=== PATIENT | female | born 1960 | race Caucasian/White ===

== ENCOUNTER 2017-06-23 20:42 | Emergency (ER) | payer MEDICARE ==
[~2017-06-23] VITALS: Ht 170.2 cm; Wt 63.5 kg
[~2017-06-23 20:42] MED LIST: ACYC200C PO; CARI250T PO; HYDR-757 PO; HYDR200T PO; LEVO88TA54 PO; PARO-49 PO
--- NOTE | 2017-06-23 21:18 | ED GU-Female ---
General Chief Complaint: Abdominal/GI Problems Stated Complaint: ABD PAIN Nursing Triage Note: PT AMBULATED TO ROOM. PT COMPLAINS OF ABD PAIN SINCE ABOUT 1999 TODAY. PT STATES SHE HAS THIS PROBLEM MANY DIFFERENT TIMES. PT COMPLAINS OF DIFFICULTY PEEING. Nursing Sepsis Screen: No Definite Risk Source: patient, family (daughter) Exam Limitations: no limitations History of Present Illness Time seen by provider: 21:07 Initial Comments Patient presents to ER by private conveyance with her daughter with a chief complaint of low abdominal/pelvis pain. She describes the pain as feeling like she is having muscle spasms in her abdomen working the way up towards her rib cage starting from the pelvis down. She states that she has a history of this pain before because several years ago she has had multiple procedures and surgeries to her bladder and urethra. She had a bladder mesh had to be removed all times. She says all of her surgeries were done at [facility]. She is known to Dr. Branch. She states that 4 days ago she started having some low nagging pain in her pelvis but this afternoon he started getting bad where she couldn't tolerate it. She has a scarred urethra urinary hesitancy and frequency. She is been unable to urinate for several hours but did finally urinate here in the ER. She got a lot of relief after urinating. She has some burning when she urinates. She does not have hematuria. She has no nausea but she has been feeling some chills today. No measured fever. She states in the past she's had to use a straight catheter but she does not like doing this because it is very painful because she has a very scarred down urethra. She recently finished a prednisone course after having a lupus flare that came on just after the of her mother with one month ago. She says she got a bad urinary tract infection the last time she had to have prednisone. She is on Plaquenil for her lupus. Allergies and Home Medications Allergies Coded Allergies: Sulfa (Sulfonamide Antibiotics) (Verified Allergy, Unknown, 09/13/15) Home Medications Acyclovir 200 Mg Capsule, 200 MG PO DAILY, (Reported) Acyclovir 200 Mg Capsule, 200 MG PO DAILY, #6 Prescribed by: DONATO VELOZ on 10/13/16 1750 Carisoprodol 250 Mg Tablet, 250 MG PO TID, #6 Prescribed by: DONATO VELOZ on 10/13/16 1750 Hydrocodone/Acetaminophen 1 Each Tablet, 1 EACH PO Q6H PRN for PAIN, #10 Prescribed by: DONATO VELOZ on 09/13/152142 Hydroxychloroquine Sulfate 200 Mg Tablet, 200 MG PO DAILY, (Reported) Levothyroxine Sodium 88 Mcg Tablet, 88 MCG PO DAILY, (Reported) Paroxetine HCl 20 Mg Tablet, 20 MG PO DAILY, (Reported) Constitutional: chills, diaphoresis, No fever, malaise Respiratory: No cough, No short of breath Cardiovascular: No chest pain, No palpitations Gastrointestinal: No abdominal pain (bbilateral lower quadrants), No constipation, No diarrhea, No nausea, No vomiting Genitourinary: see HPI, burning, denies discharge, dysuria, frequency : No Musculoskeletal: No back pain, No joint pain Skin: No pruritus, No rash Psychiatric/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: Denies Headache, Denies Numbness, Denies Paresthesia Past Nqrafun-Andcnj-Ickusr Hx Patient Social History Alcohol Use: Denies Use Recreational Drug Use: No Smoking Status: Current Everyday Smoker Type Used: Cigarettes 2nd Hand Smoke Exposure: No Recent Foreign Travel: No Contact w/Someone Who Travel: No Recent Infectious Disease Expo: No Recent Hopitalizations: No Physical Abuse: No Sexual Abuse: No Respiratory Respiratory Disorders: COPD 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 Disorders: Multiple Sclerosis Endocrine Endocrine Disorders: Lupus Psychosocial Suicide Risk Score: 0 Physical Exam Vital Signs Vital Sign - Last 12Hours 06/23/17 20:47 Temp 95.7 Pulse 79 Resp 20 B/P (MAP) 120/64 Pulse Ox 97 O2 Delivery Room Air Capillary Refill : Less Than 3 Seconds General Appearance: WD/WN, mild distress HEENT: PERRL/EOMI, pharynx normal Neck: non-tender, full range of motion Cardiovascular: normal peripheral pulses, regular rate, rhythm Respiratory: chest non-tender, lungs clear, normal breath sounds Gastrointestinal: normal bowel sounds, soft, no organomegaly, No distended, tenderness (bilateral lower quadrants and suprapubic region especially), No hernia Back: normal inspection, no CVA tenderness, no vertebral tenderness Extremities: normal inspection, no pedal edema, normal capillary refill Neurologic/Psychiatric: alert, oriented x 3 Skin: normal color, warm/dry Progress/Results/Core Measures Results/Orders Lab Results Laboratory Tests Test 06/23/17 20:51 06/23/17 20:56 Range/Units Urine Color YELLOW Urine Clarity CLEAR Urine pH 5 5-9 Urine Specific [place] 1.015 L 1.016-1.022 Urine Protein NEGATIVE NEGATIVE Urine Glucose (UA) NEGATIVE NEGATIVE Urine Ketones NEGATIVE NEGATIVE Urine Nitrite NEGATIVE NEGATIVE Urine Bilirubin NEGATIVE NEGATIVE Urine Urobilinogen NORMAL NORMAL MG/DL Urine Leukocyte Esterase NEGATIVE NEGATIVE Urine RBC (Auto) NEGATIVE NEGATIVE Urine RBC NONE /HPF Urine WBC NONE /HPF Urine Squamous Epithelial Cells RARE /HPF Urine Crystals NONE /LPF Urine Bacteria NONE /HPF Urine Casts NONE /LPF Urine Mucus NEGATIVE /LPF Urine Culture Indicated NO White Blood Count 10.5 4.3-11.0 10^3/uL Red Blood Count 4.55 4.35-5.85 10^6/uL Hemoglobin 15.3 11.5-16.0 G/DL Hematocrit 45 35-52 % Mean Corpuscular Volume 100 H 80-99 FL Mean Corpuscular Hemoglobin 34 25-34 PG Mean Corpuscular Hemoglobin Concent 34 32-36 G/DL Red Cell Distribution Width 12.3 10.0-14.5 % Platelet Count 286 130-400 10^3/uL Mean Platelet Volume 9.6 7.4-10.4 FL Neutrophils (%) (Auto) 52 42-75 % Lymphocytes (%) (Auto) 39 12-44 % Monocytes (%) (Auto) 6 0-12 % Eosinophils (%) (Auto) 2 0-10 % Basophils (%) (Auto) 1 0-10 % Neutrophils # (Auto) 5.4 1.8-7.8 X 10^3 Lymphocytes # (Auto) 4.1 H 1.0-4.0 X 10^3 Monocytes # (Auto) 0.7 0.0-1.0 X 10^3 Eosinophils # (Auto) 0.2 0.0-0.3 10^3/uL Basophils # (Auto) 0.1 0.0-0.1 10^3/uL Sodium Level 142 135-145 MMOL/L Potassium Level 3.7 3.6-5.0 MMOL/L Chloride Level 106 98-107 MMOL/L Carbon Dioxide Level 23 21-32 MMOL/L Anion Gap 13 5-14 MMOL/L Blood Urea Nitrogen 5 L 7-18 MG/DL Creatinine 0.81 0.60-1.30 MG/DL Estimat Glomerular Filtration Rate > 60 BUN/Creatinine Ratio 6 Glucose Level 92 70-105 MG/DL Calcium Level 9.8 8.5-10.1 MG/DL Total Bilirubin 0.2 0.1-1.0 MG/DL Aspartate Amino Transf (AST/SGOT) 18 5-34 U/L Alanine Aminotransferase (ALT/SGPT) 14 0-55 U/L Alkaline Phosphatase 48 40-136 U/L Total Protein 6.9 6.4-8.2 GM/DL Albumin 3.9 3.2-4.5 GM/DL My Orders Orders - IRINA MOLINA Cbc With Automated Diff (06/23/17 21:13) Comprehensive Metabolic Panel (06/23/17 21:13) Ua Culture If Indicated (06/23/17 21:13) Lorazepam Tablet (Ativan Tablet) (06/23/17 21:30) Hydrocodone/Apap 5/325 Tablet (Lortab 5 (06/23/17 21:30) Lorazepam Injection (Ativan Injection) (06/23/17 21:30) Medications Given in ED Current Medications Medications Dose Ordered Sig/Jens Route Start Time Stop Time Status Last Admin Dose Admin Acetaminophen/ Hydrocodone Bitart 1 tab ONCE ONCE PO 06/23/17 21:30 06/23/17 21:31 DC 06/23/17 21:26 1 TAB Lorazepam 1 mg ONCE ONCE IVP 06/23/17 21:30 06/23/17 21:31 DC 06/23/17 21:28 1 MG Vital Signs/I&O Vital Sign - Last 12Hours 06/23/17 20:47 Temp 95.7 Pulse 79 Resp 20 B/P (MAP) 120/64 Pulse Ox 97 O2 Delivery Room Air Blood Pressure Mean: 82 Progress Note #1: Time: 21:21 Progress Note Would be concerned about urinary retention with a history of scarring urethra and multiple procedures to her bladder in urethra. We'll get a postvoid residual using bladder scan her. She did just micturate prior to my interview. We'll also get a UA and do a basic panel of labs to make sure kidneys are okay and she is not got large white count. She is on plaque on own recently prednisone so white count may be elevated mildly just because of the prednisone. We'll be very cautious the treatment for any signs of a UTI with antibiotics both other anti-inflammatory properties as well as for her higher risk being on Plaquenil of infection. Progress Note #2: Time: 21:40 Progress Note Postvoid residual bladder scan showed 60 mL. Her urinalysis does not show urinary tract infection. Review of the [facility] prescription management software indicates the patient does routinely receive 150 doses of hydrocodone 10 every month from her PCP. Opiates can also contribute to urinary hesitancy as well as constipation however the patient states she's been having loose stools. May be reasonable to ask her to reduce her opiate use for a few days and maybe give her some anti-spasm muscle relaxers for her abdominal muscle wall pain. Departure Impression Impression: Primary Impression: Abdominal wall pain Additional Impression: Urinary hesitancy Disposition: 01 HOME, SELF-CARE Condition: Stable Departure-Patient Inst. Decision time for Depature: 22:49 Referrals: ANAIS SETH DO (PCP) Primary Care Physician Patient Instructions: Acute Abdomen (Belly Pain), Adult (DC) Add. Discharge Instructions: Drink plenty of fluids and you may take one tablet of cyclobenzaprine every 8 hours as needed for muscle spasms. Follow-up with the PCP in the next 1-2 weeks. All discharge instructions reviewed with patient and/or family. Voiced understanding. Scripts Cyclobenzaprine HCl (Cyclobenzaprine HCl) 10 Mg Tablet 10 MG PO Q8H Y for SPASMS, #15 TAB 0 Refills Prov: IRINA MOLINA 06/23/17 Copy Copies To 1: ANAIS SETH TITUS J Jun 23, 2017 21:18
[2017-06-23 21:27] LABS: BASOPHILS # (AUTO) 0.1 10^3/uL (0.0-0.1); BASOPHILS % (AUTO) 1 % (0-10); EOSINOPHILS # (AUTO) 0.2 10^3/uL (0.0-0.3); EOSINOPHILS % (AUTO) 2 % (0-10); LYMPHOCYTES # (AUTO) 4.1 X 10^3 (1.0-4.0); LYMPHOCYTES % (AUTO) 39 % (12-44); MEAN CORPUSCULAR HEMOGLOBIN 34 PG (25-34); MEAN CORPUSCULAR HGB CONC 34 G/DL (32-36); MEAN CORPUSCULAR VOLUME 100 FL (80-99); MEAN PLATELET VOLUME 9.6 FL (7.4-10.4); MONOCYTES # (AUTO) 0.7 X 10^3 (0.0-1.0); MONOCYTES % (AUTO) 6 % (0-12); NEUTROPHILS # (AUTO) 5.4 X 10^3 (1.8-7.8); NEUTROPHILS % (AUTO) 52 % (42-75); PLATELET COUNT 286 10^3/uL (130-400); RED BLOOD COUNT 4.55 10^6/uL (4.35-5.85); RED CELL DISTRIBUTION WIDTH 12.3 % (10.0-14.5); WHITE BLOOD COUNT 10.5 10^3/uL (4.3-11.0)
[2017-06-23 21:28] LABS: BILIRUBIN,URINE NEGATIVE (NEGATIVE); KETONES,URINE NEGATIVE (NEGATIVE); LEUKOCYTE ESTERASE ,URINE NEGATIVE (NEGATIVE); NITRITE,URINE NEGATIVE (NEGATIVE); PH,URINE 5 (5-9); PROTEIN,URINE NEGATIVE (NEGATIVE); UROBILINOGEN,URINE NORMAL (NORMAL)
[2017-06-23] MEDS ORDERED: HYDROcodone/APAP 5 MG/325 MG (LORTAB) TAB PO ONE (21:30)
[2017-06-23] MEDS ORDERED: LORazepam 1 MG (ATIVAN) TAB PO ONE (21:30)
[2017-06-23] MEDS ORDERED: LORazepam INJ 2 MG/ML (ATIVAN) VIAL IVP ONE (21:30)
[2017-06-23 21:35] LABS: SQUAMOUS EPITHELIAL CELL,UR RARE /HPF
[2017-06-23 21:45] LABS: ALANINE AMINOTRANSFERASE 14 U/L (0-55); ALBUMIN 3.9 GM/DL (3.2-4.5); ANION GAP 13 MMOL/L (5-14); ASPARTATE AMINO TRANSFERASE 18 U/L (5-34); BILIRUBIN,TOTAL 0.2 MG/DL (0.1-1.0); BLOOD UREA NITROGEN 5 MG/DL (7-18); BUN/CREATININE RATIO 6; CALCIUM 9.8 MG/DL (8.5-10.1); CARBON DIOXIDE 23 MMOL/L (21-32); CHLORIDE 106 MMOL/L (98-107); CREATININE SERUM 0.81 MG/DL (0.60-1.30); GFR ESTIMATED > 60; GLUCOSE 92 MG/DL (70-105); POTASSIUM 3.7 MMOL/L (3.6-5.0); SODIUM 142 MMOL/L (135-145); TOTAL PROTEIN 6.9 GM/DL (6.4-8.2)
[2017-06-23] MEDS ORDERED: CYCL10TA9 PO (22:50)
[2017-06-23 23:00] VITALS: BP 120/64
== END 2017-06-23 23:00 | disposition home or self-care (01) ==
LOC: EDUNIT# 20:42 → ER 20:43
DX: R10.30 Lower abdominal pain, unspecified (principal); R39.11 Hesitancy of micturition; L93.0 Discoid lupus erythematosus; G35 Multiple sclerosis; F17.210 Nicotine dependence, cigarettes, uncomplicated; Z79.899 Other long term (current) drug therapy
CPT/HCPCS: 36415; 80053; 81000; 85025; 96374

== ENCOUNTER → 2017-09-01 | Outpatient (CLI) | payer MEDICARE ==
[~2017-09-01] MED LIST changes: +CYCL10TA9 PO
--- NOTE | 2017-09-01 19:44 | Diagnostic Imaging Report ---
EXAMINATION: Three views of the left ankle. INDICATION: Pain. FINDINGS: No fracture, dislocation or radiopaque foreign body. Ankle mortise is normal in configuration. IMPRESSION: Unremarkable exam. Dictated by: Dictated on workstation # [id number]
== END ==
LOC: RAD 15:39
PROVIDERS: ATTEND Nurse Practitioner Family
DX: M25.572 Pain in left ankle and joints of left foot (principal)
CPT/HCPCS: 73610

== ENCOUNTER 2018-07-19 19:02 | Emergency (ER) | payer MEDICARE ==
[~2018-07-19] VITALS: Ht 175.3 cm; Wt 49.4 kg
[~2018-07-19 19:02] MED LIST changes: +HYDR-4226 PO; -HYDR-757 PO; -HYDR200T PO; +HYDR200T78 PO
[2018-07-19 19:05] VITALS: BP 114/62
--- OUTSIDE RECORDS SUMMARY | 2018-07-19 19:07 | XMS REPORT | Continuity of Care Document ---
Author Author [facility] Organization [facility] Address Unknown Phone Unavailable Allergies Active Description Code Type Severity Reaction Onset Reported/Identified Relationship to Patient Clinical Status Yes Sulfa (Sulfonamide Antibiotics) [id number] Drug Allergy Unknown N/A 2014 Medications There is no data. Problems Date Dx Coded Attending Type Code Diagnosis Diagnosed By 09/13/2015 DONATO VELOZ APRN Ot N20.9 URINARY CALCULUS, UNSPECIFIED 09/13/2015 DONATO VELOZ APRN Ot N28.9 DISORDER OF KIDNEY AND URETER, UNSPECIFI 09/13/2015 DONATO VELOZ APRN Ot N39.490 OVERFLOW INCONTINENCE 09/13/2015 DONATO VELOZ APRN Ot R33.9 RETENTION OF URINE, UNSPECIFIED 10/13/2016 DONATO VELOZ APRN Ot F17.210 NICOTINE DEPENDENCE, CIGARETTES, UNCOMPL 10/13/2016 DONATO VELOZ APRN Ot G35 MULTIPLE SCLEROSIS 10/13/2016 DONATO VELOZ APRN Ot J44.9 CHRONIC OBSTRUCTIVE PULMONARY DISEASE, U 10/13/2016 DONATO VELOZ APRN Ot R51 HEADACHE 10/13/2016 DONATO VELOZ APRN Ot Z79.899 OTHER USP (CURRENT) DRUG THERAPY 10/14/2016 DONATO VELOZ APRN Ot F17.210 NICOTINE DEPENDENCE, CIGARETTES, UNCOMPL 10/14/2016 DONATO VELOZ APRN Ot G35 MULTIPLE SCLEROSIS 10/14/2016 DONATO VELOZ APRN Ot J44.9 CHRONIC OBSTRUCTIVE PULMONARY DISEASE, U 10/14/2016 DONATO VELOZ APRN Ot R51 HEADACHE 10/14/2016 DONAOT VELOZ APRN Ot Z79.899 OTHER USP (CURRENT) DRUG THERAPY 10/18/2016 ROBERT CASAREZ APRN Ot M48.02 SPINAL STENOSIS, CERVICAL REGION 10/18/2016 ROBERT CASAREZ APRN Ot R41.82 ALTERED MENTAL STATUS, UNSPECIFIED 11/17/2016 ROBERT CASAREZ 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 REPAIRER Ot M48.02 SPINAL STENOSIS, CERVICAL REGION 11/17/2016 ROBERT CASAREZ AUTO BODY REPAIRER Ot R41.82 ALTERED MENTAL STATUS, UNSPECIFIED 12/14/2016 ROBERT CASAREZ AUTO BODY REPAIRER Ot M48.02 SPINAL STENOSIS, CERVICAL REGION 12/14/2016 ROBERT CASAREZ AUTO BODY REPAIRER Ot R41.82 ALTERED MENTAL STATUS, UNSPECIFIED 06/23/2017 TRACY TOVAR IRINA J Ot F17.210 NICOTINE DEPENDENCE, CIGARETTES, UNCOMPL 06/23/2017 FIDELINA MOLINA MDUS J Ot G35 MULTIPLE SCLEROSIS 06/23/2017 TRACY TOVAR, IRINA J Ot L93.0 DISCOID LUPUS ERYTHEMATOSUS 06/23/2017 FIDELINA MOLINA MDUS J Ot R10.30 LOWER ABDOMINAL PAIN, UNSPECIFIED 06/23/2017 FIDELINA MOLINA MDUS J Ot R10.9 UNSPECIFIED ABDOMINAL PAIN 06/23/2017 FIDELINA MOLINA MDUS J Ot R39.11 HESITANCY OF MICTURITION 06/23/2017 FIDELINA MOLINA MDUS J Ot Z79.899 OTHER USP (CURRENT) DRUG THERAPY 06/25/2017 TRACY TOVAR IRINA J Ot F17.210 NICOTINE DEPENDENCE, CIGARETTES, UNCOMPL 06/25/2017 TRACY TOVAR IRINA J Ot G35 MULTIPLE SCLEROSIS 06/25/2017 TRACY TOVAR IRINA J Ot L93.0 DISCOID LUPUS ERYTHEMATOSUS 06/25/2017 TRACY TOVAR IRINA J Ot R10.30 LOWER ABDOMINAL PAIN, UNSPECIFIED 06/25/2017 TRACY TOVAR IRINA J Ot R10.9 UNSPECIFIED ABDOMINAL PAIN 06/25/2017 TRACY TOVAR IRINA J Ot R39.11 HESITANCY OF MICTURITION 06/25/2017 TRACY TOVAR IRINA J Ot Z79.899 OTHER USP (CURRENT) DRUG THERAPY 08/08/2017 MADIE SHELL MD T Ot E03.9 HYPOTHYROIDISM, UNSPECIFIED 08/08/2017 MADIE SHELL MD T Ot F17.210 NICOTINE DEPENDENCE, CIGARETTES, UNCOMPL 08/08/2017 MADIE SHELL MD T Ot G89.29 OTHER CHRONIC PAIN 08/08/2017 MADIE SHELL MD T Ot J44.9 CHRONIC OBSTRUCTIVE PULMONARY DISEASE, U 08/08/2017 MADIE SHELL MD Ot M32.9 SYSTEMIC LUPUS ERYTHEMATOSUS, UNSPECIFIE 08/08/2017 MADIE SHELL MD Ot R10.9 UNSPECIFIED ABDOMINAL PAIN 08/08/2017 MADIE SHELL MD Ot Z90.710 ACQUIRED ABSENCE OF BOTH CERVIX AND UTER 08/08/2017 MADIE SHELL MD, Ot Z91.14 PATIENT'S OTHER NONCOMPLIANCE WITH MEDIC 08/09/2017 MADIE SHELL MD Ot E03.9 HYPOTHYROIDISM, UNSPECIFIED 08/09/2017 MADIE SHELL MD Ot F17.210 NICOTINE DEPENDENCE, CIGARETTES, UNCOMPL 08/09/2017 MADIE SHELL MD Ot G89.29 OTHER CHRONIC PAIN 08/09/2017 MADIE SHELL MD, Ot J44.9 CHRONIC OBSTRUCTIVE PULMONARY DISEASE, U 08/09/2017 MADIE SHELL MD, Ot M32.9 SYSTEMIC LUPUS ERYTHEMATOSUS, UNSPECIFIE 08/09/2017 MADIE SHELL MD Ot R10.9 UNSPECIFIED ABDOMINAL PAIN 08/09/2017 MADIE SHELL MD, Ot Z90.710 ACQUIRED ABSENCE OF BOTH CERVIX AND UTER 08/09/2017 MADIE SHELL MD, Ot Z91.14 PATIENT'S OTHER NONCOMPLIANCE WITH MEDIC 09/26/2017 RANDA MORAN APRN Ot M25.572 PAIN IN LEFT ANKLE AND JOINTS OF LEFT FO 05/18/2018 RANDA MORAN APRN Ot M25.572 PAIN IN LEFT ANKLE AND JOINTS OF LEFT FO Procedures There is no data. Results Test Result Range Complete blood count (CBC) with automated white blood cell (WBC) differential - 10/13/16 16:30 Blood leukocytes automated count (number/volume) 10.5 10*3/uL 4.3-11.0 Blood erythrocytes automated count (number/volume) 4.50 10*6/uL 4.35-5.85 Venous blood hemoglobin measurement (mass/volume) 15.5 g/dL 11.5-16.0 Blood hematocrit (volume fraction) 46 % 35-52 Automated erythrocyte mean corpuscular volume 101 [foz_us] 80-99 Automated erythrocyte mean corpuscular hemoglobin (mass per erythrocyte) 34 pg 25-34 Automated erythrocyte mean corpuscular hemoglobin concentration measurement ( mass/volume) 34 g/dL 32-36 Automated erythrocyte distribution width ratio 12.4 % 10.0-14.5 Automated blood platelet count (count/volume) 293 10*3/uL 130-400 Automated blood platelet mean volume measurement 9.4 [foz_us] 7.4-10.4 Automated blood neutrophils/100 leukocytes 53 % 42-75 Automated blood lymphocytes/100 leukocytes 38 % 12-44 Blood monocytes/100 leukocytes 7 % 0-12 Automated blood eosinophils/100 leukocytes 2 % 0-10 Automated blood basophils/100 leukocytes 1 % 0-10 Blood neutrophils automated count (number/volume) 5.6 10*3 1.8-7.8 Blood lymphocytes automated count (number/volume) 3.9 10*3 1.0-4.0 Blood monocytes automated count (number/volume) 0.7 10*3 0.0-1.0 Automated eosinophil count 0.2 10*3/uL 0.0-0.3 Automated blood basophil count (count/volume) 0.1 10*3/uL 0.0-0.1 Comprehensive metabolic panel - 10/13/16 16:30 Serum or plasma sodium measurement (moles/volume) 139 mmol/L 135-145 Serum or plasma potassium measurement (moles/volume) 4.0 mmol/L 3.6-5.0 Serum or plasma chloride measurement (moles/volume) 108 mmol/L 98-107 Carbon dioxide 20 mmol/L 21-32 Serum or plasma anion gap determination (moles/volume) 11 mmol/L 5-14 Serum or plasma urea nitrogen measurement (mass/volume) 6 mg/dL 7-18 Serum or plasma creatinine measurement (mass/volume) 0.78 mg/dL 0.60-1.30 Serum or plasma urea nitrogen/creatinine mass ratio 8 NRG Serum or plasma creatinine measurement with calculation of estimated glomerular filtration rate > NRG Serum or plasma glucose measurement (mass/volume) 104 mg/dL 70-105 Serum or plasma calcium measurement (mass/volume) 9.1 mg/dL 8.5-10.1 Serum or plasma total bilirubin measurement (mass/volume) 0.3 mg/dL 0.1-1.0 Serum or plasma alkaline phosphatase measurement (enzymatic activity/volume) 39 U/L 40-136 Serum or plasma aspartate aminotransferase measurement (enzymatic activity/ volume) 24 U/L 5-34 Serum or plasma alanine aminotransferase measurement (enzymatic activity/volume ) 17 U/L 0-55 Serum or plasma protein measurement (mass/volume) 7.0 g/dL 6.4-8.2 Serum or plasma albumin measurement (mass/volume) 4.0 g/dL 3.2-4.5 THYROID STIMULATING HORMONE - 10/13/16 16:30 THYROID STIMULATING HORMONE 14.16 u[iU]/mL 0.35-4.94 Serum or plasma thyroxine (T4) free measurement (mass/volume) - 10/13/16 16:30 Serum or plasma thyroxine (T4) free measurement (mass/volume) 1.07 ng/dL 0.70-1.48 Serum or plasma C reactive protein measurement (mass/volume) - 10/13/16 16:30 Serum or plasma C reactive protein measurement (mass/volume) 0.34 mg /dL 0.00-0.50 Erythrocyte sedimentation rate by westergren method - 10/13/16 16:30 Erythrocyte sedimentation rate by westergren method 7 mm 0-30 Complete urinalysis with reflex to culture - 10/13/16 17:03 Urine color determination YELLOW NRG Urine clarity determination CLEAR NRG Urine pH measurement by test strip 6 5-9 Specific gravity of urine by test strip 1.015 1.016- 1.022 Urine protein assay by test strip, semi-quantitative NEGATIVE NEGATIVE Urine glucose detection by automated test strip NEGATIVE NEGATIVE Erythrocytes detection in urine sediment by light microscopy NEGATIVE NEGATIVE Urine ketones detection by automated test strip NEGATIVE NEGATIVE Urine nitrite detection by test strip NEGATIVE NEGATIVE Urine total bilirubin detection by test strip NEGATIVE NEGATIVE Urine urobilinogen measurement by automated test strip (mass/volume) NORMAL NORMAL Urine leukocyte esterase detection by dipstick NEGATIVE NEGATIVE Automated urine sediment erythrocyte count by microscopy (number/high power field) [HPF] NRG Automated urine sediment leukocyte count by microscopy (number/high power field ) [HPF] NRG Bacteria detection in urine sediment by light microscopy NEGATIVE NRG Crystals detection in urine sediment by light microscopy NONE NRG Casts detection in urine sediment by light microscopy NONE NRG Mucus detection in urine sediment by light microscopy NEGATIVE NRG Complete urinalysis with reflex to culture NO NRG Urine drug screening test - 10/13/16 17:03 Urine phencyclidine detection by screening method NEGATIVE NEGATIVE Urine benzodiazepines detection by screening method NEGATIVE NEGATIVE Urine cocaine detection NEGATIVE NEGATIVE Urine amphetamines detection by screening method NEGATIVE NEGATIVE Urine methamphetamine detection by screening method NEGATIVE NEGATIVE Urine cannabinoids detection by screening method NEGATIVE NEGATIVE Urine opiates detection by screening method POSITIVE NEGATIVE Urine barbiturates detection NEGATIVE NEGATIVE Screening urine tricyclic antidepressants detection NEGATIVE NEGATIVE Urine methadone detection by screening method NEGATIVE NEGATIVE Urine oxycodone detection NEGATIVE NEGATIVE Urine propoxyphene detection NEGATIVE NEGATIVE Complete urinalysis with reflex to culture - 06/23/17 20:51 Urine color determination YELLOW NRG Urine clarity determination CLEAR NRG Urine pH measurement by test strip 5 5-9 Specific gravity of urine by test strip 1.015 1.016- 1.022 Urine protein assay by test strip, semi-quantitative NEGATIVE NEGATIVE Urine glucose detection by automated test strip NEGATIVE NEGATIVE Erythrocytes detection in urine sediment by light microscopy NEGATIVE NEGATIVE Urine ketones detection by automated test strip NEGATIVE NEGATIVE Urine nitrite detection by test strip NEGATIVE NEGATIVE Urine total bilirubin detection by test strip NEGATIVE NEGATIVE Urine urobilinogen measurement by automated test strip (mass/volume) NORMAL NORMAL Urine leukocyte esterase detection by dipstick NEGATIVE NEGATIVE Automated urine sediment erythrocyte count by microscopy (number/high power field) NONE NRG Automated urine sediment leukocyte count by microscopy (number/high power field ) NONE NRG Bacteria detection in urine sediment by light microscopy NONE NRG Squamous epithelial cells detection in urine sediment by light microscopy RARE NRG Crystals detection in urine sediment by light microscopy NONE NRG Casts detection in urine sediment by light microscopy NONE NRG Mucus detection in urine sediment by light microscopy NEGATIVE NRG Complete urinalysis with reflex to culture NO NRG Complete blood count (CBC) with automated white blood cell (WBC) differential - 06/23/17 20:56 Blood leukocytes automated count (number/volume) 10.5 10*3/uL 4.3-11.0 Blood erythrocytes automated count (number/volume) 4.55 10*6/uL 4.35-5.85 Venous blood hemoglobin measurement (mass/volume) 15.3 g/dL 11.5-16.0 Blood hematocrit (volume fraction) 45 % 35-52 Automated erythrocyte mean corpuscular volume 100 [foz_us] 80-99 Automated erythrocyte mean corpuscular hemoglobin (mass per erythrocyte) 34 pg 25-34 Automated erythrocyte mean corpuscular hemoglobin concentration measurement ( mass/volume) 34 g/dL 32-36 Automated erythrocyte distribution width ratio 12.3 % 10.0-14.5 Automated blood platelet count (count/volume) 286 10*3/uL 130-400 Automated blood platelet mean volume measurement 9.6 [foz_us] 7.4-10.4 Automated blood neutrophils/100 leukocytes 52 % 42-75 Automated blood lymphocytes/100 leukocytes 39 % 12-44 Blood monocytes/100 leukocytes 6 % 0-12 Automated blood eosinophils/100 leukocytes 2 % 0-10 Automated blood basophils/100 leukocytes 1 % 0-10 Blood neutrophils automated count (number/volume) 5.4 10*3 1.8-7.8 Blood lymphocytes automated count (number/volume) 4.1 10*3 1.0-4.0 Blood monocytes automated count (number/volume) 0.7 10*3 0.0-1.0 Automated eosinophil count 0.2 10*3/uL 0.0-0.3 Automated blood basophil count (count/volume) 0.1 10*3/uL 0.0-0.1 Comprehensive metabolic panel - 06/23/17 20:56 Serum or plasma sodium measurement (moles/volume) 142 mmol/L 135-145 Serum or plasma potassium measurement (moles/volume) 3.7 mmol/L 3.6-5.0 Serum or plasma chloride measurement (moles/volume) 106 mmol/L 98-107 Carbon dioxide 23 mmol/L 21-32 Serum or plasma anion gap determination (moles/volume) 13 mmol/L 5-14 Serum or plasma urea nitrogen measurement (mass/volume) 5 mg/dL 7-18 Serum or plasma creatinine measurement (mass/volume) 0.81 mg/dL 0.60-1.30 Serum or plasma urea nitrogen/creatinine mass ratio 6 NRG Serum or plasma creatinine measurement with calculation of estimated glomerular filtration rate > NRG Serum or plasma glucose measurement (mass/volume) 92 mg/dL 70-105 Serum or plasma calcium measurement (mass/volume) 9.8 mg/dL 8.5-10.1 Serum or plasma total bilirubin measurement (mass/volume) 0.2 mg/dL 0.1-1.0 Serum or plasma alkaline phosphatase measurement (enzymatic activity/volume) 48 U/L 40-136 Serum or plasma aspartate aminotransferase measurement (enzymatic activity/ volume) 18 U/L 5-34 Serum or plasma alanine aminotransferase measurement (enzymatic activity/volume ) 14 U/L 0-55 Serum or plasma protein measurement (mass/volume) 6.9 g/dL 6.4-8.2 Serum or plasma albumin measurement (mass/volume) 3.9 g/dL 3.2-4.5 Encounters ACCT No. Visit Date/Time Discharge Status Pt. Type Provider Facility Loc./Unit Complaint [id number] 09/01/2017 15:39:00 09/01/2017 23:59:59 CLS Outpatient RANDA MORAN [employer] REPAIRER [facility] RAD PAIN LATERAL EDGE OF LEFT ANKLE [id number] 08/08/2017 13:35:00 08/08/2017 14:30:00 DIS Emergency SUMAYA TOVAR, MADIE Costa [facility] ER NO MEDS FOR 1 MO/ LUPUS [id number] 06/23/2017 20:43:00 06/23/2017 23:00:00 DIS Emergency IRINA MOLINA MD [facility] ER ABD PAIN [id number] 01/27/2017 14:03:00 01/27/2017 23:59:59 CLS Preadmit ANAIS SETH DO [facility] REHAB CERVICAL DDD AND B ARM NUMBNESS [id number] 10/16/2016 13:07:00 10/16/2016 23:59:59 CLS Outpatient HERMELINDO ROBERT N [employer] REPAIRER [facility] RAD RU1.82 [id number] 10/13/2016 16:22:00 10/13/2016 18:00:00 DIS Emergency DONATO VELOZ [employer] REPAIRER [facility] ER HEAD PAIN [id number] 09/13/2015 19:33:00 09/13/2015 22:16:00 DIS Emergency DONATO VELOZ [employer] REPAIRER [facility] ER UNABLE TO URINATE
[2018-07-19] MEDS ORDERED: ASPIRIN 81 MG CHEW (CHILDREN'S ASA) PO ONE (19:15)
[2018-07-19] MEDS ORDERED: NS IV 1000 ML 1,000 ML IV ONE (19:15)
[2018-07-19 19:34] LABS: BASOPHILS % (AUTO) 1 % (0-10); EOSINOPHILS % (AUTO) 1 % (0-10); HEMATOCRIT 41 % (35-52); HEMOGLOBIN 14.1 G/DL (11.5-16.0); LYMPHOCYTES # (AUTO) 1.2 X 10^3 (1.0-4.0); LYMPHOCYTES % (AUTO) 19 % (12-44); MEAN CORPUSCULAR HEMOGLOBIN 34 PG (25-34); MEAN CORPUSCULAR HGB CONC 34 G/DL (32-36); MEAN CORPUSCULAR VOLUME 100 FL (80-99); MEAN PLATELET VOLUME 9.6 FL (7.4-10.4); MONOCYTES # (AUTO) 0.4 X 10^3 (0.0-1.0); MONOCYTES % (AUTO) 6 % (0-12); NEUTROPHILS # (AUTO) 4.7 X 10^3 (1.8-7.8); NEUTROPHILS % (AUTO) 75 % (42-75); PLATELET COUNT 260 10^3/uL (130-400); RED BLOOD COUNT 4.14 10^6/uL (4.35-5.85); RED CELL DISTRIBUTION WIDTH 12.6 % (10.0-14.5); WHITE BLOOD COUNT 6.3 10^3/uL (4.3-11.0)
[2018-07-19 19:47] LABS: PROTHROMBIN TIME PATIENT 12.8 SEC (12.2-14.7)
[2018-07-19 19:51] LABS: ALANINE AMINOTRANSFERASE 17 U/L (0-55); ALBUMIN 4.1 GM/DL (3.2-4.5); ALKALINE PHOSPHATASE 36 U/L (40-136); BILIRUBIN,TOTAL 0.2 MG/DL (0.1-1.0); BUN/CREATININE RATIO 7; CALCIUM 9.6 MG/DL (8.5-10.1); CARBON DIOXIDE 24 MMOL/L (21-32); CHLORIDE 108 MMOL/L (98-107); CREATININE SERUM 0.75 MG/DL (0.60-1.30); GFR ESTIMATED > 60; GLUCOSE 106 MG/DL (70-105); LIPASE 37 U/L (8-78); MAGNESIUM 2.3 MG/DL (1.8-2.4); POTASSIUM 3.9 MMOL/L (3.6-5.0); SODIUM 141 MMOL/L (135-145); TOTAL PROTEIN 6.9 GM/DL (6.4-8.2)
[2018-07-19 19:58] LABS: MYOGLOBIN SERUM 37.4 NG/ML (10.0-92.0)
[2018-07-19] MEDS ORDERED: ANTACID SUSP 30 ML UDC (MYLANTA) PO ONE (20:00)
[2018-07-19] MEDS ORDERED: LIDOCAINE 2% VISCOUS 15 ML UDC PO ONE (20:00)
--- NOTE | 2018-07-19 20:10 | ED Chest Pain ---
General Chief Complaint: Chest Pain Stated Complaint: CHEST PAIN/SHAKY/WEAKNESS/COUGH Nursing Triage Note: PT TO ROOM #10 VIA ED WC BY ED STAFF FROM [facility]. PT NOTED TO BE PALE AND GRAPPING CHEST. A&OX4. CO CHEST PAIN THAT BEGAN 1HR PRIOR. PT REPORTS PAIN "CRUSHING" THAT RADIATES TO HER LT ARM. PT REPORTS NAUSEA AND DIAPHORESIS. PT REPORTS HER SISTER IN CAR WRECK TWO WEEKS PRIOR AND HAS BEEN STUGGLING WITH ANXIETY SINCE. Nursing Sepsis Screen: No Definite Risk Source: patient Exam Limitations: no limitations History of Present Illness Date Seen by Provider: Jul 19, 2018 Time Seen by Provider: 19:10 Initial Comments Here with report of central chest pain that began approximately one hour prior to arrival. States that it is pressure and crushing and radiating to her left arm. Noted that last night or early this morning had leg pain on the left. Has had a lot of stress and anxiety lately due to of her sister 2 weeks ago. Has lupus and has intermittently on steroids. Currently on steroids. Has not had anything like this previous. Does smoke. Reports nausea and sweating but denies vomiting. Reports that she has had some weakness. Timing/Duration: 1 hour Severity/Quality: moderate, pressure Location: central Radiation: arms Prior CP/Workup: no prior chest pain, no prior cardiac workup ASA po ANTHROPOMETRIST: No NTG SL ANTHROPOMETRIST: No Associated Symptoms: No back pain; fatigue; No fever/chills; nausea/vomiting; No shortness of breath Allergies and Home Medications Allergies Coded Allergies: Sulfa (Sulfonamide Antibiotics) (Verified Allergy, Unknown, 09/13/15) Home Medications Acyclovir 200 Mg Capsule, 200 MG PO DAILY, (Reported) Acyclovir 200 Mg Capsule, 200 MG PO DAILY Prescribed by: DONATO VELOZ on 10/13/16 175 Carisoprodol 250 Mg Tablet, 250 MG PO TID Prescribed by: DONATO VELOZ on 10/13/16 175 Cyclobenzaprine HCl 10 Mg Tablet, 10 MG PO Q8H PRN for SPASMS Prescribed by: IRINA MOLINA on 06/23/17 2250 Hydrocodone/Acetaminophen 1 Each Tablet, 1 EACH PO Q6H PRN for PAIN Prescribed by: DONATO VELOZ on 09/13/153 Hydroxychloroquine Sulfate 200 Mg Tablet, 200 MG PO DAILY, (Reported) Levothyroxine Sodium 88 Mcg Tablet, 88 MCG PO DAILY, (Reported) Paroxetine HCl 20 Mg Tablet, 20 MG PO DAILY, (Reported) Patient Home Medication List Home Medication List Reviewed: Yes Review of Systems Review of Systems Constitutional: see HPI; No chills, No fever EENTM: No Symptoms Reported Respiratory: No Symptoms Reported Cardiovascular: Chest Pain, Edema; Denies Lightheadedness Gastrointestinal: See HPI Genitourinary: No Symptoms Reported Musculoskeletal: see HPI; No back pain; muscle pain Skin: no symptoms reported Psychiatric/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: Anxiety All Other Systems Reviewed Negative Unless Noted: Yes Past Zyfoixr-Lowxmd-Umrjfu Hx Past Med/Social Hx: Reviewed Nursing Past Med/Soc Hx Patient Social History Type Used: Cigarettes 2nd Hand Smoke Exposure: No Recent Foreign Travel: No Contact w/Someone Who Travel: No Recent Infectious Disease Expo: No Recent Hopitalizations: No Past Medical History Surgeries: Yes (BLADDER) Bladder Surgery, Hysterectomy Respiratory: Yes COPD Cardiac: No 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 Multiple Sclerosis Genitourinary: Yes (bladder issues related to mesh, chronic abdominal pelvic pain) Gastrointestinal: No Musculoskeletal: Yes Chronic Back Pain Endocrine: Yes Hypothyroidsim, Lupus HEENT: No Cancer: No Psychosocial: No Blood Disorders: No Family Medical History Reviewed Nursing Family Hx Physical Exam Vital Signs Vital Signs - First Documented 07/19/18 19:05 Temp 97.4 Pulse 78 Resp 19 B/P (MAP) 114/62 (79) Pulse Ox 98 O2 Delivery Room Air Capillary Refill : Less Than 3 Seconds Height, Weight, BMI Height: 5'9.00" Weight: 109lbs. oz. 49.188512wo; 20.09 BMI Method:Stated General Appearance: No Apparent Distress, WD/WN HEENT: PERRL/EOMI, Pharynx Normal Neck: Non Tender, Supple Respiratory: Lungs Clear, Normal Breath Sounds Cardiovascular: Regular Rate, Rhythm, No Murmur Gastrointestinal: Non Tender, Soft Extremity: Normal Inspection, Normal Range of Motion, Non Tender, No Calf Tenderness, No Pedal Edema Neurologic/Psychiatric: Alert, Oriented x3 Skin: Normal Color, Warm/Dry Progress/Results/Core Measures Results/Orders Lab Results Laboratory Tests Test 07/19/18 19:20 Range/Units White Blood Count 6.3 4.3-11.0 10^3/uL Red Blood Count 4.14 L 4.35-5.85 10^6/uL Hemoglobin 14.1 11.5-16.0 G/DL Hematocrit 41 35-52 % Mean Corpuscular Volume 100 H 80-99 FL Mean Corpuscular Hemoglobin 34 25-34 PG Mean Corpuscular Hemoglobin Concent 34 32-36 G/DL Red Cell Distribution Width 12.6 10.0-14.5 % Platelet Count 260 130-400 10^3/uL Mean Platelet Volume 9.6 7.4-10.4 FL Neutrophils (%) (Auto) 75 42-75 % Lymphocytes (%) (Auto) 19 12-44 % Monocytes (%) (Auto) 6 0-12 % Eosinophils (%) (Auto) 1 0-10 % Basophils (%) (Auto) 1 0-10 % Neutrophils # (Auto) 4.7 1.8-7.8 X 10^3 Lymphocytes # (Auto) 1.2 1.0-4.0 X 10^3 Monocytes # (Auto) 0.4 0.0-1.0 X 10^3 Eosinophils # (Auto) 0.0 0.0-0.3 10^3/uL Basophils # (Auto) 0.0 0.0-0.1 10^3/uL Prothrombin Time 12.8 12.2-14.7 SEC INR Comment 1.0 0.8-1.4 Activated Partial Thromboplast Time 29 24-35 SEC D-Dimer 0.32 0.00-0.49 UG/ML Sodium Level 141 135-145 MMOL/L Potassium Level 3.9 3.6-5.0 MMOL/L Chloride Level 108 H 98-107 MMOL/L Carbon Dioxide Level 24 21-32 MMOL/L Anion Gap 9 5-14 MMOL/L Blood Urea Nitrogen 5 L 7-18 MG/DL Creatinine 0.75 0.60-1.30 MG/DL Estimat Glomerular Filtration Rate > 60 BUN/Creatinine Ratio 7 Glucose Level 106 H 70-105 MG/DL Calcium Level 9.6 8.5-10.1 MG/DL Corrected Calcium 9.5 8.5-10.1 MG/DL Magnesium Level 2.3 1.8-2.4 MG/DL Total Bilirubin 0.2 0.1-1.0 MG/DL Aspartate Amino Transf (AST/SGOT) 18 5-34 U/L Alanine Aminotransferase (ALT/SGPT) 17 0-55 U/L Alkaline Phosphatase 36 L 40-136 U/L Myoglobin 37.4 10.0-92.0 NG/ML Troponin I < 0.30 <0.30 NG/ML Total Protein 6.9 6.4-8.2 GM/DL Albumin 4.1 3.2-4.5 GM/DL Lipase 37 8-78 U/L My Orders Orders - ANDREI FRENCH MD Cbc With Automated Diff (07/19/18) Magnesium (07/19/18) Chest 1 View, Ap/Pa Only (07/19/18) Ekg Tracing (07/19/18) Cardiac Profile 1 (07/19/18) Comprehensive Metabolic Panel (07/19/18) Myoglobin Serum (07/19/18) Protime With Inr (07/19/18) Partial Thromboplastin Time (07/19/18) O2 (07/19/18) Monitor-Rhythm Ecg Trace Only (07/19/18) Lipid Panel (07/20/18 06:00) Aspirin Chewable Tablet (Baby Aspirin Ch (07/19/18:) Saline Lock/Iv-Start (07/19/18) Lipase (07/19/18) Fibrin Degradation Products (07/19/18:) Saline Lock/Iv-Start (07/19/18) Ns Iv 1000 Ml (Sodium Chloride 0.9%) (07/19/18:) Lidocaine 2% Viscous 15 Ml (Xylocaine Vi (07/19/18 20:00) Antacid Suspension (Mylanta Suspension (07/19/18 20:00) Troponin I (07/19/18 22:05) Myoglobin Serum (07/19/18 22:05) Ekg Tracing (07/19/18 22:05) Medications Given in ED Current Medications Medications Dose Ordered Sig/Jens Route Start Time Stop Time Status Last Admin Dose Admin Al Hydrox/Mg Hydrox/Simethicone 30 ml ONCE ONCE PO 07/19/18 20:00 07/19/18 20:01 DC 9/19/18 20:19 30 ML Aspirin 324 mg ONCE ONCE PO 07/19/18 19:15 07/19/18 19:17 DC 07/19/18 19:27 324 MG Lidocaine HCl 15 ml ONCE ONCE PO 07/19/18 20:00 07/19/18 20:01 DC 07/19/18 20:19 15 ML Sodium Chloride 1,000 ml @ 0 mls/hr Q0M ONCE IV 07/19/18 19:15 07/19/18 19:17 DC 07/19/18 19:27 0 MLS/HR Vital Signs/I&O 07/19/18 07/19/18 19:05 19:05 Temp 97.4 Pulse 78 Resp 19 B/P (MAP) 114/62 (79) Pulse Ox 98 O2 Delivery Room Air Room Air Blood Pressure Mean: 79 Progress Progress Note : Progress Note Seen and evaluated. IV, labs, EKG and chest x-ray. ASA 324 mg by mouth given. We will give GI cocktail. Monitor patient. Overall improved after that. We will do recheck of labs at 10 p.m. as well as EKG. Patient was okay with that. Monitor patient. 2220: Patient is wanting to leave AGAINST MEDICAL ADVICE. She lost her sister 2 weeks ago due to trauma and the activity in the ER is causing her anxiety to act out. She just would like to go home. We did discuss further evaluation versus leaving AGAINST MEDICAL ADVICE. Patient was instructed to return for any concerns. Chest pain instructions given to her. Initial ECG Impression Date: Jul 19, 2018 Initial ECG Impression Time: 19:10 Initial ECG Rate: 74 Initial ECG Rhythm: Normal Sinus Initial ECG Comparisson: No Previous ECG Available Comment Sinus rhythm with left atrial abnormality. No evidence of ST elevation MD. No previous available for comparison. Right axis deviation. Interpreted by me. Departure Impression Primary Impression: Chest pain Qualified Codes: R07.9 - Chest pain, unspecified Additional Impression: Anxiety Disposition: 07 AGAINST MEDICAL ADVICE Condition: Stable Departure-Patient Inst. Decision time for Depature: 22:27 Referrals: DORIS BOYD MD (PCP/Family) Primary Care Physician Patient Instructions: Chest Pain (DC) Add. Discharge Instructions: All discharge instructions reviewed with patient and/or family. Voiced understanding. Is very important that he follow up with your doctor for further evaluation regarding her chest pain. While this may be anxiety and reflux problems, it's still possible that it is related to your heart. You may use ezur-kxh-syonbrc medicines such as Tums, omeprazole or famotidine for stomach upset. You can purchase these qscy-rzr-utkfaap. While you're leaving AGAINST MEDICAL ADVICE now that does not prohibit your return. I asked that you return for any concerns and especially for chest pain, breathing problems, weakness, sweating, nausea vomiting or other concerns as needed. ANDREI FRENCH MD Jul 19, 2018 20:10
--- NOTE | 2018-07-19 20:44 | Diagnostic Imaging Report ---
INDICATION: Shortness of air with chest pain FINDINGS: The lungs are clear. The heart size and vascularity normal. There is no effusion or pneumothorax. There is no free air beneath the diaphragms. IMPRESSION: No acute appearing abnormality Dictated by: Dictated on workstation # [id number]
== END 2018-07-19 22:32 | disposition left against medical advice (07) ==
LOC: EDUNIT# 19:02 → ER 19:03
DX: R07.89 Other chest pain (principal); F41.9 Anxiety disorder, unspecified; J44.9 Chronic obstructive pulmonary disease, unspecified; G35 Multiple sclerosis; E03.9 Hypothyroidism, unspecified; Z88.2 Allergy status to sulfonamides; Z79.52 Long term (current) use of systemic steroids; Z90.710 Acquired absence of both cervix and uterus
CPT/HCPCS: 36415; 71045; 80053; 83690; 83735; 83874; 84484; 85025; 85379; 85610; 85730; 93005; 93041; 96360

== ENCOUNTER 2018-10-07 18:46 | Emergency (ER) | payer MEDICARE, MEDICAID ==
[~2018-10-07] VITALS: Ht 177.8 cm; Wt 49.9 kg
--- OUTSIDE RECORDS SUMMARY | 2018-10-07 18:52 | XMS REPORT | Continuity of Care Document ---
Author Author [facility] Organization [facility] Address Unknown Phone Unavailable Allergies Active Description Code Type Severity Reaction Onset Reported/Identified Relationship to Patient Clinical Status Yes Sulfa (Sulfonamide Antibiotics) [id number] Drug Allergy Unknown N/A 2014 Medications There [...] 10/13/2016 DONATO VELOZ APRN Ot Z79.899 OTHER [facility] (CURRENT) DRUG THERAPY 10/14/2016 DONATO VELOZ APRN Ot F17.210 NICOTINE DEPENDENCE, CIGARETTES, UNCOMPL 10/14/2016 DONATO VELOZ APRN Ot G35 MULTIPLE SCLEROSIS 10/14/2016 DONATO VELOZ APRN Ot J44.9 CHRONIC OBSTRUCTIVE PULMONARY DISEASE, U 10/14/2016 DONATO VELOZ APRN Ot R51 HEADACHE 10/14/2016 DONATO VELOZ APRN Ot Z79.899 OTHER [facility] (CURRENT) DRUG THERAPY 10/18/2016 ROBERT CASAREZ APRN Ot M48.02 SPINAL STENOSIS, CERVICAL REGION 10/18/2016 ROBERT CASAREZ APRN Ot R41.82 ALTERED MENTAL STATUS, UNSPECIFIED 11/17/2016 ROBERT CASAREZ EARLY CHILDHOOD WORKER Ot M48.02 SPINAL STENOSIS, CERVICAL REGION 11/17/2016 ROBERT CASAREZ EARLY CHILDHOOD WORKER Ot R41.82 ALTERED MENTAL STATUS, UNSPECIFIED 12/14/2016 ROBERT CASAREZ EARLY CHILDHOOD WORKER Ot M48.02 SPINAL STENOSIS, CERVICAL REGION 12/14/2016 ROBERT CASAREZ EARLY CHILDHOOD WORKER Ot R41.82 ALTERED MENTAL STATUS, UNSPECIFIED 06/23/2017 [...] FIDELINA MOLINA MDUS J Ot Z79.899 OTHER [facility] (CURRENT) DRUG THERAPY 06/25/2017 TRACY TOVAR IRINA [...] TRACY TOVAR IRINA J Ot Z79.899 OTHER [facility] (CURRENT) DRUG THERAPY 08/08/2017 MADIE SHELL MD [...] BOTH CERVIX AND UTER 08/08/2017 MADIE SHELL MD Ot Z91.14 PATIENT'S OTHER NONCOMPLIANCE WITH MEDIC 08/09/2017 MADIE SHELL MD Ot E03.9 HYPOTHYROIDISM, UNSPECIFIED 08/09/2017 MADIE SHELL MD Ot F17.210 NICOTINE DEPENDENCE, CIGARETTES, UNCOMPL 08/09/2017 MADIE SHELL MD Ot G89.29 OTHER CHRONIC PAIN 08/09/2017 MADIE SHELL MD Ot J44.9 CHRONIC OBSTRUCTIVE PULMONARY DISEASE, U 08/09/2017 MADIE SHELL MD Ot M32.9 SYSTEMIC LUPUS ERYTHEMATOSUS, UNSPECIFIE 08/09/2017 MADIE SHELL MD Ot R10.9 UNSPECIFIED ABDOMINAL PAIN 08/09/2017 MADIE SHELL MD Ot Z90.710 ACQUIRED ABSENCE OF BOTH CERVIX AND UTER 08/09/2017 MADIE SHELL MD Ot Z91.14 PATIENT'S OTHER NONCOMPLIANCE WITH MEDIC 09/26/2017 RANDA MORAN [employer] CHIL[employer]OOD WORKER Ot M25.572 PAIN IN LEFT ANKLE AND JOINTS OF LEFT FO 05/18/2018 RANDA MORAN [employer]AR[employer]ILDHO[employer] WORKER Ot M25.572 PAIN IN LEFT ANKLE AND JOINTS OF LEFT FO 07/19/2018 ROBERT CASAREZ EAR[employer] CHILDHOOD WORKER Ot M48.02 SPINAL STENOSIS, CERVICAL REGION 07/19/2018 ROBERT CASAREZ EAR[employer] CHILDHOOD WORKER Ot R41.82 ALTERED MENTAL STATUS, UNSPECIFIED 07/19/2018 RANDA MORAN EAR[employer] CHILDHOOD WORKER Ot M25.572 PAIN IN LEFT ANKLE AND JOINTS OF LEFT FO 07/19/2018 ANDREI FRNECH MD Ot E03.9 HYPOTHYROIDISM, UNSPECIFIED 07/19/2018 ANDREI FRENCH MD Ot F41.9 ANXIETY DISORDER, UNSPECIFIED 07/19/2018 ANDREI FRENCH MD, Ot G35 MULTIPLE SCLEROSIS 07/19/2018 ANDREI FRENCH MD, Ot J44.9 CHRONIC OBSTRUCTIVE PULMONARY DISEASE, U 07/19/2018 ANDREI FRENCH MD Ot R07.89 OTHER CHEST PAIN 07/19/2018 ANDREI FRENCH MD, Ot Z79.52 TRANSPORTATION PLANNER (CURRENT) USE OF SYSTEMIC STER 07/19/2018 ANDREI FRENCH MD Ot Z88.2 ALLERGY STATUS TO SULFONAMIDES STATUS 07/19/2018 ANDREI FRENCH MD Ot Z90.710 ACQUIRED ABSENCE OF BOTH CERVIX AND UTER 07/21/2018 ANDREI FRENCH MD, Ot E03.9 HYPOTHYROIDISM, UNSPECIFIED 07/21/2018 ANDREI FRENCH MD, Ot F41.9 ANXIETY DISORDER, UNSPECIFIED 07/21/2018 ANDREI FRENCH MD, Ot G35 MULTIPLE SCLEROSIS 07/21/2018 ANDREI FRENCH MD, Ot J44.9 CHRONIC OBSTRUCTIVE PULMONARY DISEASE, U 07/21/2018 ANDREI FRENCH MD, Ot R07.89 OTHER CHEST PAIN 07/21/2018 ANDREI FRENCH MD, Ot Z79.52 TRANSPORTATION PLANNER (CURRENT) USE OF SYSTEMIC STER 07/21/2018 ANDREI FRENCH MD, Ot Z88.2 ALLERGY STATUS TO SULFONAMIDES STATUS 07/21/2018 ANDREI FRENCH MD Ot Z90.710 ACQUIRED ABSENCE OF BOTH CERVIX AND UTER Procedures There is no data. Results Test [...] plasma albumin measurement (mass/volume) 3.9 g/dL 3.2-4.5 Complete blood count (CBC) with automated white blood cell (WBC) differential - 07/19/18 19:20 Blood leukocytes automated count (number/volume) 6.3 10*3/uL 4.3-11.0 Blood erythrocytes automated count (number/volume) 4.14 10*6/uL 4.35-5.85 Venous blood hemoglobin measurement (mass/volume) 14.1 g/dL 11.5-16.0 Blood hematocrit (volume fraction) 41 % 35-52 Automated erythrocyte mean corpuscular volume 100 [foz_us] 80-99 Automated erythrocyte mean corpuscular hemoglobin (mass per erythrocyte) 34 pg 25-34 Automated erythrocyte mean corpuscular hemoglobin concentration measurement ( mass/volume) 34 g/dL 32-36 Automated erythrocyte distribution width ratio 12.6 % 10.0-14.5 Automated blood platelet count (count/volume) 260 10*3/uL 130-400 Automated blood platelet mean volume measurement 9.6 [foz_us] 7.4-10.4 Automated blood neutrophils/100 leukocytes 75 % 42-75 Automated blood lymphocytes/100 leukocytes 19 % 12-44 Blood monocytes/100 leukocytes 6 % 0-12 Automated blood eosinophils/100 leukocytes 1 % 0-10 Automated blood basophils/100 leukocytes 1 % 0-10 Blood neutrophils automated count (number/volume) 4.7 10*3 1.8-7.8 Blood lymphocytes automated count (number/volume) 1.2 10*3 1.0-4.0 Blood monocytes automated count (number/volume) 0.4 10*3 0.0-1.0 Automated eosinophil count 0.0 10*3/uL 0.0-0.3 Automated blood basophil count (count/volume) 0.0 10*3/uL 0.0-0.1 PT panel in platelet poor plasma by coagulation assay - 07/19/18 19:20 Prothrombin time (PT) in platelet poor plasma by coagulation assay 12.8 s 12.2-14.7 INR in platelet poor plasma or blood by coagulation assay 1.0 0.8-1.4 Activated partial thromboplastin time (aPTT) in platelet poor plasma bycoagulation assay - 07/19/18 19:20 Activated partial thromboplastin time (aPTT) in platelet poor plasma bycoagulation assay 29 s 24-35 Fibrin D-dimer FEU measurement in platelet poor plasma (mass/volume) - 19:20 Fibrin D-dimer FEU measurement in platelet poor plasma (mass/volume) 0.32 ug/mL 0.00-0.49 Comprehensive metabolic panel - 07/19/18 19:20 Serum or plasma sodium measurement (moles/volume) 141 mmol/L 135-145 Serum or plasma potassium measurement (moles/volume) 3.9 mmol/L 3.6-5.0 Serum or plasma chloride measurement (moles/volume) 108 mmol/L 98-107 Carbon dioxide 24 mmol/L 21-32 Serum or plasma anion gap determination (moles/volume) 9 mmol/L 5-14 Serum or plasma urea nitrogen measurement (mass/volume) 5 mg/dL 7-18 Serum or plasma creatinine measurement (mass/volume) 0.75 mg/dL 0.60-1.30 Serum or plasma urea nitrogen/creatinine mass ratio 7 NRG Serum or plasma creatinine measurement with calculation of estimated glomerular filtration rate > NRG Serum or plasma glucose measurement (mass/volume) 106 mg/dL 70-105 Serum or plasma calcium measurement (mass/volume) 9.6 mg/dL 8.5-10.1 Serum or plasma total bilirubin measurement (mass/volume) 0.2 mg/dL 0.1-1.0 Serum or plasma alkaline phosphatase measurement (enzymatic activity/volume) 36 U/L 40-136 Serum or plasma aspartate aminotransferase measurement (enzymatic activity/ volume) 18 U/L 5-34 Serum or plasma alanine aminotransferase measurement (enzymatic activity/volume ) 17 U/L 0-55 Serum or plasma protein measurement (mass/volume) 6.9 g/dL 6.4-8.2 Serum or plasma albumin measurement (mass/volume) 4.1 g/dL 3.2-4.5 CALCIUM CORRECTED 9.5 mg/dL 8.5-10.1 Magnesium - 07/19/18 19:20 Magnesium 2.3 mg/dL 1.8-2.4 Serum or plasma troponin i.cardiac measurement (mass/volume) - 07/19/18 19:20 Serum or plasma troponin i.cardiac measurement (mass/volume) < ng/ mL <0.30 Myoglobin, serum - 07/19/18 19:20 Myoglobin, serum 37.4 ng/mL 10.0-92.0 Lipase - 07/19/18 19:20 Lipase 37 U/L 8-78 Encounters ACCT No. Visit Date/Time Discharge Status Pt. Type Provider Facility Loc./Unit Complaint [id number] 07/19/2018 19:03:00 07/19/2018 22:32:00 DIS Emergency MANOLO TOVAR, ANDREI Ball [facility] ER CHEST PAIN/SHAKY/ WEAKNESS/COUGH [id number] 09/01/2017 15:39:00 09/01/2017 23:59:59 CLS Outpatient RANDA MORAN [employer]AR[employer] WORK[employer] [facility] RAD PAIN LATERAL EDGE OF LEFT ANKLE [id number] 08/08/2017 13:35:00 08/08/2017 14:30:00 DIS Emergency SUMAYA TOVAR, MADIE Costa [facility] ER NO MEDS FOR 1 MO/ LUPUS [id number] 06/23/2017 20:43:00 06/23/2017 23:00:00 DIS Emergency TRACY TOVAR, IRINA Bennett [facility] ER ABD PAIN [id number] 01/27/2017 14:03:00 01/27/2017 23:59:59 CLS Preadmit ANAIS SETH DO [facility] REHAB CERVICAL DDD AND B ARM NUMBNESS [id number] 10/16/2016 13:07:00 10/16/2016 23:59:59 CLS Outpatient ROBERT CASAREZ [employer]AR[employer] CHILDHOOD WORKER [facility] RAD RU1.82 [id number] 10/13/2016 16:22:00 10/13/2016 18:00:00 DIS Emergency DONATO VELOZ [employer]AR[employer] CHILDHOOD WORKER [facility] ER HEAD PAIN [id number] 09/13/2015 19:33:00 09/13/2015 22:16:00 DIS Emergency DONATO VELOZ EARLY CHILDHOOD WORKER [facility] ER UNABLE TO URINATE [id number] 07/19/2018 22:06:00 Document Registration
[2018-10-07] MEDS ORDERED: ASPIRIN 81 MG CHEW (CHILDREN'S ASA) PO ONE (19:00)
--- NOTE | 2018-10-07 19:07 | ED Abdominal Pain ---
General Stated Complaint: UPPER STOMACH/CHEST PAIN/SOB Source of Information: Patient Exam Limitations: No Limitations History of Present Illness Date Seen by Provider: Oct 07, 2018 Time Seen by Provider: 19:05 Initial Comments To ER per private vehicle with reports of epigastric abdominal pain. This pain radiates up into her chest and is associated with nausea. Pain began today at about 1 PM (different from what she told the RN). No actual vomiting. She has chronic diarrhea, nothing changed. She has a history of pain similar to this about 7 years ago when she had pancreatitis. She denies any alcohol use. Timing/Duration: 4-6 Hours Severity/Quality: Severe Location: Epigastric Radiation: No Radiation Associated Symptoms: No Fever/Chills; Nausea/Vomiting Allergies and Home Medications Allergies Coded Allergies: Sulfa (Sulfonamide Antibiotics) (Verified Allergy, Unknown, 09/13/15) Home Medications Acyclovir 200 Mg Capsule, 200 MG PO DAILY, (Reported) Acyclovir 200 Mg Capsule, 200 MG PO DAILY Prescribed by: DONATO VELOZ on 10/13/16 1750 Carisoprodol 250 Mg Tablet, 250 MG PO TID Prescribed by: DONATO VELOZ on 10/13/16 1750 Cyclobenzaprine HCl 10 Mg Tablet, 10 MG PO Q8H PRN for SPASMS Prescribed by: IRINA MOLINA on 06/23/17 2250 Hydrocodone/Acetaminophen 1 Each Tablet, 1 EACH PO Q6H PRN for PAIN Prescribed by: DONATO VELOZ on 09/13/15 2143 Hydroxychloroquine Sulfate 200 Mg Tablet, 200 MG PO DAILY, (Reported) Levothyroxine Sodium 88 Mcg Tablet, 88 MCG PO DAILY, (Reported) Paroxetine HCl 20 Mg Tablet, 20 MG PO DAILY, (Reported) Patient Home Medication List Home Medication List Reviewed: Yes Review of Systems Review of Systems Constitutional: see HPI EENTM: No Symptoms Reported Respiratory: No Symptoms Reported Cardiovascular: See HPI Gastrointestinal: See HPI, Abdominal Pain; Denies Constipated; Diarrhea, Nausea ; Denies Vomiting Genitourinary: No Symptoms Reported Musculoskeletal: no symptoms reported Skin: no symptoms reported Psychiatric/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: No Symptoms Reported Endocrine: No Symptoms Reported Past Osttyzt-Gekxze-Mzcgcg Hx Patient Social History Type Used: Cigarettes 2nd Hand Smoke Exposure: No Recent Foreign Travel: No Contact w/Someone Who Travel: No Recent Hopitalizations: No Past Medical History Surgeries: Yes (BLADDER) Bladder Surgery, Hysterectomy Respiratory: Yes COPD Cardiac: No 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 Multiple Sclerosis Genitourinary: Yes (bladder issues related to mesh, chronic abdominal pelvic pain) Gastrointestinal: No Musculoskeletal: Yes Chronic Back Pain Endocrine: Yes Hypothyroidsim, Lupus HEENT: No Cancer: No Psychosocial: No Blood Disorders: No Physical Exam Vital Signs Vital Signs - First Documented Capillary Refill : Height/Weight/BMI Height: 5'9.00" Weight: 109lbs. oz. 49.519088hd; 20.09 BMI Method:Stated General Appearance: WD/WN, thin HEENT: PERRL/EOMI, normal ENT inspection Respiratory: normal breath sounds, no respiratory distress, no accessory muscle use Cardiovascular: regular rate, rhythm, no murmur Gastrointestinal: normal bowel sounds, soft, tenderness Extremities: normal range of motion, non-tender (epigastric) Neurologic/Psychiatric: alert, normal mood/affect, oriented x 3 Skin: normal color, warm/dry Progress/Results/Core Measures Results/Orders Lab Results Laboratory Tests Test 10/07/18 18:58 10/07/18 19:05 Range/Units Urine Color YELLOW Urine Clarity CLEAR Urine pH 6.5 5-9 Urine Specific Brillion 1.015 L 1.016-1.022 Urine Protein NEGATIVE NEGATIVE Urine Glucose (UA) NEGATIVE NEGATIVE Urine Ketones NEGATIVE NEGATIVE Urine Nitrite NEGATIVE NEGATIVE Urine Bilirubin NEGATIVE NEGATIVE Urine Urobilinogen NORMAL NORMAL MG/DL Urine Leukocyte Esterase 1+ H NEGATIVE Urine RBC (Auto) NEGATIVE NEGATIVE Urine RBC NONE /HPF Urine WBC 0-2 /HPF Urine Squamous Epithelial Cells RARE /HPF Urine Crystals NONE /LPF Urine Bacteria NONE /HPF Urine Casts NONE /LPF Urine Mucus NEGATIVE /LPF Urine Culture Indicated NO White Blood Count 7.4 4.3-11.0 10^3/uL Red Blood Count 4.30 L 4.35-5.85 10^6/uL Hemoglobin 14.6 11.5-16.0 G/DL Hematocrit 43 35-52 % Mean Corpuscular Volume 101 H 80-99 FL Mean Corpuscular Hemoglobin 34 25-34 PG Mean Corpuscular Hemoglobin Concent 34 32-36 G/DL Red Cell Distribution Width 12.2 10.0-14.5 % Platelet Count 248 130-400 10^3/uL Mean Platelet Volume 9.6 7.4-10.4 FL Neutrophils (%) (Auto) 62 42-75 % Lymphocytes (%) (Auto) 29 12-44 % Monocytes (%) (Auto) 7 0-12 % Eosinophils (%) (Auto) 1 0-10 % Basophils (%) (Auto) 1 0-10 % Neutrophils # (Auto) 4.6 1.8-7.8 X 10^3 Lymphocytes # (Auto) 2.2 1.0-4.0 X 10^3 Monocytes # (Auto) 0.5 0.0-1.0 X 10^3 Eosinophils # (Auto) 0.1 0.0-0.3 10^3/uL Basophils # (Auto) 0.0 0.0-0.1 10^3/uL Prothrombin Time 12.5 12.2-14.7 SEC INR Comment 0.9 0.8-1.4 Activated Partial Thromboplast Time 31 24-35 SEC Sodium Level 141 135-145 MMOL/L Potassium Level 3.9 3.6-5.0 MMOL/L Chloride Level 104 98-107 MMOL/L Carbon Dioxide Level 25 21-32 MMOL/L Anion Gap 12 5-14 MMOL/L Blood Urea Nitrogen 5 L 7-18 MG/DL Creatinine 0.79 0.60-1.30 MG/DL Estimat Glomerular Filtration Rate > 60 BUN/Creatinine Ratio 6 Glucose Level 89 70-105 MG/DL Calcium Level 9.6 8.5-10.1 MG/DL Corrected Calcium 9.5 8.5-10.1 MG/DL Magnesium Level 2.2 1.8-2.4 MG/DL Total Bilirubin 0.2 0.1-1.0 MG/DL Aspartate Amino Transf (AST/SGOT) 20 5-34 U/L Alanine Aminotransferase (ALT/SGPT) 16 0-55 U/L Alkaline Phosphatase 44 40-136 U/L Myoglobin 48.3 10.0-92.0 NG/ML Troponin I < 0.30 <0.30 NG/ML B-Type Natriuretic Peptide 10.4 <100.0 PG/ML Total Protein 7.1 6.4-8.2 GM/DL Albumin 4.1 3.2-4.5 GM/DL Amylase Level 126 H 25-125 U/L Lipase 39 8-78 U/L My Orders Orders - DONATO VELOZ SR RISK MANAGEMENT CONSULTANT Cbc With Automated Diff (10/07/18 18:53) Magnesium (10/07/18 18:53) Chest 1 View, Ap/Pa Only (10/07/18 18:53) Ekg Tracing (10/07/18 18:53) Cardiac Profile 1 (10/07/18 18:53) Comprehensive Metabolic Panel (10/07/18 18:53) Myoglobin Serum (10/07/18 18:53) Protime With Inr (10/07/18 18:53) Partial Thromboplastin Time (10/07/18 18:53) O2 (10/07/18 18:53) Monitor-Rhythm Ecg Trace Only (10/07/18 18:53) Lipid Panel (10/08/18 06:00) Aspirin Chewable Tablet (Baby Aspirin Ch (10/07/18 19:00) Saline Lock/Iv-Start (10/07/18 18:53) Lipase (10/07/18 18:53) Amylase (10/07/18 18:53) BNP (10/07/18 18:53) Ct Abdomen/Pelvis W (10/07/18 19:04) Ns Iv 1000 Ml (Sodium Chloride 0.9%) (10/07/18 19:15) Ondansetron Injection (Zofran Injectio (10/07/18 19:15) Fentanyl Injection (Sublimaze Injection (10/07/18 19:15) Ua Culture If Indicated (10/07/18 19:35) Antacid Suspension (Mylanta Suspension (10/07/18 19:45) Lidocaine 2% Viscous 15 Ml (Xylocaine Vi (10/07/18 19:45) Iohexol Injection (Omnipaque 350 Mg/Ml 1 (10/07/18 19:45) Contrast Received (Contrast Received) (10/07/18 19:45) Sodium Chloride Flush (Catheter Flush Sy (10/07/18 19:45) Ns (Ivpb) (Sodium Chloride 0.9%) (10/07/18 19:45) Medications Given in ED Current Medications Medications Dose Ordered Sig/Jens Route Start Time Stop Time Status Last Admin Dose Admin Al Hydrox/Mg Hydrox/Simethicone 30 ml ONCE ONCE PO 10/07/18 19:45 10/07/18 19:46 DC 10/07/18 19:41 30 ML Aspirin 324 mg ONCE ONCE PO 10/07/18 19:00 10/07/18 19:01 DC 10/07/18 19:09 324 MG Fentanyl Citrate 50 mcg ONCE ONCE IVP 10/07/18 19:15 10/07/18 19:16 DC 10/07/18 19:10 50 MCG Iohexol 100 ml ONCE ONCE IV 10/07/18 19:45 10/07/18 19:46 DC 10/07/18 19:53 60 ML Lidocaine HCl 5 ml ONCE ONCE PO 10/07/18 19:45 10/07/18 19:46 DC 10/07/18 19:41 5 ML Ondansetron HCl 4 mg ONCE ONCE IVP 10/07/18 19:15 10/07/18 19:16 DC 10/07/18 19:09 4 MG Sodium Chloride 10 ml NEEDED PRN IV 10/07/18 19:45 10/07/18 19:53 10 ML Sodium Chloride 250 ml ONCE ONCE IV 10/07/18 19:45 10/07/18 19:46 DC 10/07/18 19:53 80 ML Vital Signs/I&O 10/07/18 10/07/18 18:54 18:54 Temp 96.3 Pulse 95 Resp 18 B/P (MAP) 95/73 (80) Pulse Ox 97 97 O2 Delivery Room Air Room Air Departure Communication (Admissions) 2009-patient was given a GI cocktail. She states this helped tremendously. She states "the difference is amazing". "As soon as I took it I could finally talk normal again". She does have a prescription for ibuprofen filled in August. I' ll have her stop this as her pain is likely from gastritis/peptic ulcer disease. Impression Primary Impression: Gastritis Qualified Codes: K29.00 - Acute gastritis without bleeding Disposition: HOME, SELF-CARE Condition: Stable Departure-Patient Inst. Decision time for Depature: 20:11 Referrals: ELY DOBBINS MD (PCP/Family) Primary Care Physician Patient Instructions: Gastritis (DC), Ulcer and Gastritis Diet Add. Discharge Instructions: 1. 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 Follow-up with your doctor next week. Stop taking the NSAIDs like ibuprofen until directed otherwise as they may contribute to stomach ulcers. Scripts Sucralfate (Sucralfate) 1 Gm Tablet 1 GM PO ACHS, #40 TAB Prov: DONATO VELOZ APRN 10/07/18 Pantoprazole Sodium (Protonix) 40 Mg Tablet. 40 MG PO DAILY, #30 TAB Prov: DONATO VELOZ APRN 10/07/18 DONATO VELOZ APRN Oct 07, 2018 19:07
[2018-10-07 19:13] LABS: BASOPHILS % (AUTO) 1 % (0-10); EOSINOPHILS # (AUTO) 0.1 10^3/uL (0.0-0.3); EOSINOPHILS % (AUTO) 1 % (0-10); HEMATOCRIT 43 % (35-52); HEMOGLOBIN 14.6 G/DL (11.5-16.0); LYMPHOCYTES # (AUTO) 2.2 X 10^3 (1.0-4.0); LYMPHOCYTES % (AUTO) 29 % (12-44); MEAN CORPUSCULAR HEMOGLOBIN 34 PG (25-34); MEAN CORPUSCULAR HGB CONC 34 G/DL (32-36); MEAN CORPUSCULAR VOLUME 101 FL (80-99); MEAN PLATELET VOLUME 9.6 FL (7.4-10.4); MONOCYTES # (AUTO) 0.5 X 10^3 (0.0-1.0); MONOCYTES % (AUTO) 7 % (0-12); NEUTROPHILS # (AUTO) 4.6 X 10^3 (1.8-7.8); NEUTROPHILS % (AUTO) 62 % (42-75); PLATELET COUNT 248 10^3/uL (130-400); RED CELL DISTRIBUTION WIDTH 12.2 % (10.0-14.5); WHITE BLOOD COUNT 7.4 10^3/uL (4.3-11.0)
[2018-10-07] MEDS ORDERED: fentaNYL INJECTION 100 MCG/2 ML AMP IVP ONE (19:15)
[2018-10-07] MEDS ORDERED: NS IV 1000 ML 1,000 ML IV SCH (19:15)
[2018-10-07] MEDS ORDERED: ONDANSETRON 4 MG/2 ML (SDV) Z0FRAN IVP ONE (19:15)
[2018-10-07 19:23] LABS: INR 0.9 (0.8-1.4); PROTHROMBIN TIME PATIENT 12.5 SEC (12.2-14.7)
[2018-10-07 19:33] LABS: ALANINE AMINOTRANSFERASE 16 U/L (0-55); ALBUMIN 4.1 GM/DL (3.2-4.5); ALKALINE PHOSPHATASE 44 U/L (40-136); AMYLASE 126 U/L (25-125); BILIRUBIN,TOTAL 0.2 MG/DL (0.1-1.0); BUN/CREATININE RATIO 6; CALCIUM 9.6 MG/DL (8.5-10.1); CARBON DIOXIDE 25 MMOL/L (21-32); CHLORIDE 104 MMOL/L (98-107); CREATININE SERUM 0.79 MG/DL (0.60-1.30); GFR ESTIMATED > 60; GLUCOSE 89 MG/DL (70-105); LIPASE 39 U/L (8-78); MAGNESIUM 2.2 MG/DL (1.8-2.4); POTASSIUM 3.9 MMOL/L (3.6-5.0); SODIUM 141 MMOL/L (135-145); TOTAL PROTEIN 7.1 GM/DL (6.4-8.2)
[2018-10-07 19:39] LABS: MYOGLOBIN SERUM 48.3 NG/ML (10.0-92.0)
[2018-10-07 19:41] LABS: BILIRUBIN,URINE NEGATIVE (NEGATIVE); CLARITY,URINE CLEAR; COLOR,URINE YELLOW; GLUCOSE, URINE (UA) NEGATIVE (NEGATIVE); KETONES,URINE NEGATIVE (NEGATIVE); LEUKOCYTE ESTERASE ,URINE 1+ (NEGATIVE); NITRITE,URINE NEGATIVE (NEGATIVE); PH,URINE 6.5 (5-9); PROTEIN,URINE NEGATIVE (NEGATIVE); UROBILINOGEN,URINE NORMAL (NORMAL)
[2018-10-07] MEDS ORDERED: CATHETER FLUSH 10 ML SYR IV PRN (19:45)
[2018-10-07] MEDS ORDERED: LIDOCAINE 2% VISCOUS 15 ML UDC PO ONE (19:45)
[2018-10-07] MEDS ORDERED: NS 250 ML (IVPB) BAG IV ONE (19:45)
[2018-10-07] MEDS ORDERED: IOHEXOL 350 MG/ML 100 ML (OMNIPAQUE 350) VIAL IV ONE (19:45)
[2018-10-07] MEDS ORDERED: RECEIVED CONTRAST (Hold Metformin) IV SCH (19:45)
[2018-10-07] MEDS ORDERED: ANTACID SUSP 30 ML UDC (MYLANTA) PO ONE (19:45)
[2018-10-07 19:48] LABS: SQUAMOUS EPITHELIAL CELL,UR RARE /HPF; WBC,URINE 0-2 /HPF
--- NOTE | 2018-10-07 19:52 | Diagnostic Imaging Report ---
Examination: PA view of the chest Indication: Cough and shortness of breath. Comparison: 07/19/2018. Findings: The lungs are clear and the pulmonary vasculature is normal. No pneumothorax or significant pleural effusion. The cardiomediastinal silhouette is normal. No acute osseous abnormality. Impression: No acute chest disease. No significant change. Dictated by: Dictated on workstation # [id number]
[2018-10-07] MEDS ORDERED: PANT40TA2 PO (20:12)
[2018-10-07] MEDS ORDERED: SUCR1TAB PO (20:12)
--- NOTE | 2018-10-07 20:14 | Diagnostic Imaging Report ---
PROCEDURE: CT abdomen and pelvis with contrast. TECHNIQUE: Multiple contiguous axial images were obtained through the abdomen and pelvis after administration of intravenous contrast. INDICATION: Left lower rib pain with nausea and diarrhea. COMPARISON: CT abdomen and pelvis performed on 09/13/2015. FINDINGS: The lung bases are clear and the visualized heart is normal in size. The liver, spleen, pancreas, gallbladder and adrenal glands are normal. No biliary ductal dilatation. The kidneys enhance symmetrically, without evidence of hydronephrosis. There is a nonobstructing 2 mm calculus in the lower pole of the left kidney. There is an exophytic cyst projecting laterally off of the upper pole of the left kidney, which is not significantly changed in size dating back to 2014. There is mild colonic distention with a moderate amount of retained liquid stool noted throughout the colon. There is more pronounced distention of the sigmoid colon. There is suggestion of mild hyperenhancement involving colon and small bowel loops. No evidence of bowel wall thickening. No small bowel obstruction. No pneumoperitoneum. No abdominal free fluid or loculated collection. No lymphadenopathy. The aorta is nonaneurysmal. The bladder is normal. The uterus is surgically absent. No acute osseous abnormality. IMPRESSION: 1. Moderate distention of the sigmoid colon, with large amount of retained liquid stool noted throughout most of the colon. There is suggestion of mild hyperenhancement involving colon and small bowel loops, without evidence of wall thickening. Findings are nonspecific and can be seen in gastroenteritis. No evidence of obstruction. No pneumoperitoneum or focal collection. 2. Nonobstructing left lower pole renal calculus. Dictated by: Dictated on workstation # [id number]
[2018-10-07 20:25] VITALS: BP 107/50
== END 2018-10-07 20:30 | disposition home or self-care (01) ==
LOC: EDUNIT# 18:46 → ER 18:47
DX: K29.70 Gastritis, unspecified, without bleeding (principal); J44.9 Chronic obstructive pulmonary disease, unspecified; G35 Multiple sclerosis; E03.9 Hypothyroidism, unspecified; M32.9 Systemic lupus erythematosus, unspecified; Z88.2 Allergy status to sulfonamides; Z87.19 Personal history of other diseases of the digestive system; Z90.710 Acquired absence of both cervix and uterus
CPT/HCPCS: 36415; 71045; 74177; 80053; 81000; 82150; 83690; 83735; 83874; 83880; 84484; 85025; 85610; 85730; 93041

== ENCOUNTER 2018-12-18 17:38 | Emergency (ER) | payer MEDICARE, MEDICAID ==
[~2018-12-18] VITALS: Ht 177.8 cm; Wt 53.1 kg
--- OUTSIDE RECORDS SUMMARY | 2018-12-18 17:51 | XMS REPORT | Continuity of Care Document ---
Author Author [facility] Organization [facility] Address Unknown Phone Unavailable Allergies Active Description Code Type Severity Reaction Onset Reported/Identified Relationship to Patient Clinical Status Yes Sulfa (Sulfonamide Antibiotics) [id number] Drug Allergy Unknown N/A 2014 Medications There [...] 10/13/2016 DONATO VELOZ APRN Ot Z79.899 OTHER CARE HOME (CURRENT) DRUG THERAPY 10/14/2016 DONATO VELOZ APRN Ot F17.210 NICOTINE DEPENDENCE, CIGARETTES, UNCOMPL 10/14/2016 DONATO VELOZ APRN Ot G35 MULTIPLE SCLEROSIS 10/14/2016 DONATO VELOZ APRN Ot J44.9 CHRONIC OBSTRUCTIVE PULMONARY DISEASE, U 10/14/2016 DONATO VELOZ APRN Ot R51 HEADACHE 10/14/2016 DONATO VELOZ APRN Ot Z79.899 OTHER CARE HOME (CURRENT) DRUG THERAPY 10/18/2016 ROBERT CASAREZ APRN Ot M48.02 SPINAL STENOSIS, CERVICAL REGION 10/18/2016 ROBERT CASAREZ APRN Ot R41.82 ALTERED MENTAL STATUS, UNSPECIFIED 11/17/2016 ROBERT CASAREZ CUT IN WORKER Ot M48.02 SPINAL STENOSIS, CERVICAL REGION 11/17/2016 ROBERT CASAREZ CUT IN WORKER Ot R41.82 ALTERED MENTAL STATUS, UNSPECIFIED 12/14/2016 ROBERT CASAREZ CUT IN WORKER Ot M48.02 SPINAL STENOSIS, CERVICAL REGION 12/14/2016 ROBERT CASAREZ CUT IN WORKER Ot R41.82 ALTERED MENTAL STATUS, UNSPECIFIED [...] FIDELINA MOLINA MDUS J Ot Z79.899 OTHER CARE HOME (CURRENT) DRUG THERAPY 06/25/2017 TRACY TOVAR IRINA [...] TRACY TOVAR IRINA J Ot Z79.899 OTHER CARE HOME (CURRENT) DRUG THERAPY 08/08/2017 MADIE SHELL MD T Ot E03.9 HYPOTHYROIDISM, UNSPECIFIED 08/08/2017 MADIE SHELL MD T Ot F17.210 NICOTINE DEPENDENCE, CIGARETTES, UNCOMPL 08/08/2017 MADIE SHELL MD T Ot G89.29 OTHER CHRONIC PAIN 08/08/2017 MADEI SHELL MD T Ot J44.9 CHRONIC OBSTRUCTIVE [...] OTHER NONCOMPLIANCE WITH MEDIC 09/26/2017 RANDA MORAN CUT IN WORKER Ot M25.572 PAIN IN LEFT ANKLE AND JOINTS OF LEFT FO 05/18/2018 RANDA MORAN CUT IN WORKER Ot M25.572 PAIN IN LEFT ANKLE AND JOINTS OF LEFT FO 07/19/2018 ROBERT CASAREZ CUT IN WORKER Ot M48.02 SPINAL STENOSIS, CERVICAL REGION 07/19/2018 ROBERT CASAREZ CUT IN WORKER Ot R41.82 ALTERED MENTAL STATUS, UNSPECIFIED 07/19/2018 RANDA MORAN CUT IN WORKER Ot M25.572 PAIN IN LEFT ANKLE AND JOINTS OF LEFT FO 07/19/2018 ANDREI FRENCH MD Ot E03.9 HYPOTHYROIDISM, UNSPECIFIED 07/19/2018 ANDREI FRENCH MD Ot F41.9 ANXIETY DISORDER, UNSPECIFIED 07/19/2018 ANDREI FRENCH MD Ot G35 MULTIPLE SCLEROSIS 07/19/2018 ANDREI FRENCH MD, Ot J44.9 CHRONIC OBSTRUCTIVE PULMONARY DISEASE, U 07/19/2018 ANDREI FRENCH MD Ot R07.89 OTHER CHEST PAIN 07/19/2018 ANDREI FRENCH MD Ot Z79.52 RAILROAD POLICE (CURRENT) USE OF SYSTEMIC STER 07/19/2018 ANDREI FRENCH MD Ot Z88.2 ALLERGY STATUS TO SULFONAMIDES STATUS 07/19/2018 ANDREI FRENCH MD Ot Z90.710 ACQUIRED ABSENCE OF BOTH CERVIX AND UTER 07/21/2018 ANDREI FRENCH MD Ot E03.9 HYPOTHYROIDISM, UNSPECIFIED 07/21/2018 ANDREI FRENCH MD Ot F41.9 ANXIETY DISORDER, UNSPECIFIED 07/21/2018 ANDREI FRENCH MD Ot G35 MULTIPLE SCLEROSIS 07/21/2018 ANDREI FRENCH MD, Ot J44.9 CHRONIC OBSTRUCTIVE PULMONARY DISEASE, U 07/21/2018 ANDREI FRENCH MD Ot R07.89 OTHER CHEST PAIN 07/21/2018 ANDREI FRENCH MD Ot Z79.52 RAILROAD POLICE (CURRENT) USE OF SYSTEMIC STER 07/21/2018 ANDREI FRENCH MD Ot Z88.2 ALLERGY STATUS TO SULFONAMIDES STATUS 07/21/2018 ANDREI FRENCH MD Ot Z90.710 ACQUIRED ABSENCE OF BOTH CERVIX AND UTER 10/07/2018 DONATO VELOZ APRN Ot E03.9 HYPOTHYROIDISM, UNSPECIFIED 10/07/2018 DONATO VELOZ APRN Ot G35 MULTIPLE SCLEROSIS 10/07/2018 DONATO VELOZ APRN Ot J44.9 CHRONIC OBSTRUCTIVE PULMONARY DISEASE, U 10/07/2018 DONATO VELOZ APRN Ot K29.70 GASTRITIS, UNSPECIFIED, WITHOUT BLEEDING 10/07/2018 DONATO VELOZ APRN Ot M32.9 SYSTEMIC LUPUS ERYTHEMATOSUS, UNSPECIFIE 10/07/2018 DONATO VELOZ APRN Ot R10.13 EPIGASTRIC PAIN 10/07/2018 DONATO VELOZ APRN Ot Z87.19 PERSONAL HISTORY OF OTHER DISEASES OF TH 10/07/2018 DONATO VELOZ APRN Ot Z88.2 ALLERGY STATUS TO SULFONAMIDES STATUS 10/07/2018 DONATO VELOZ APRN Ot Z90.710 ACQUIRED ABSENCE OF BOTH CERVIX AND UTER 10/10/2018 DONATO VELOZ APRN Ot E03.9 HYPOTHYROIDISM, UNSPECIFIED 10/10/2018 DONATO VELOZ APRN Ot G35 MULTIPLE SCLEROSIS 10/10/2018 DONATO VELOZ APRN Ot J44.9 CHRONIC OBSTRUCTIVE PULMONARY DISEASE, U 10/10/2018 DONATO VELOZ APRN Ot K29.70 GASTRITIS, UNSPECIFIED, WITHOUT BLEEDING 10/10/2018 DONATO VELOZ APRN Ot M32.9 SYSTEMIC LUPUS ERYTHEMATOSUS, UNSPECIFIE 10/10/2018 DONATO VELOZ APRN Ot R10.13 EPIGASTRIC PAIN 10/10/2018 DONATO VELOZ APRN Ot Z87.19 PERSONAL HISTORY OF OTHER DISEASES OF 10/10/2018 DONATO VELOZ APRN Ot Z88.2 ALLERGY STATUS TO SULFONAMIDES STATUS 10/10/2018 DONATO VELOZ APRN Ot Z90.710 ACQUIRED ABSENCE OF BOTH CERVIX AND UTER 10/15/2018 DONATO VELOZ APRN Ot E03.9 HYPOTHYROIDISM, UNSPECIFIED 10/15/2018 DONATO VELOZ APRN Ot G35 MULTIPLE SCLEROSIS 10/15/2018 DONATO VELOZ APRN Ot J44.9 CHRONIC OBSTRUCTIVE PULMONARY DISEASE, U 10/15/2018 DONATO VELOZ APRN Ot K29.70 GASTRITIS, UNSPECIFIED, WITHOUT BLEEDING 10/15/2018 DONATO VELOZ APRN Ot M32.9 SYSTEMIC LUPUS ERYTHEMATOSUS, UNSPECIFIE 10/15/2018 DONATO VELOZ APRN Ot R10.13 EPIGASTRIC PAIN 10/15/2018 DONATO VELOZ APRN Ot Z87.19 PERSONAL HISTORY OF OTHER DISEASES OF 10/15/2018 DONATO VELOZ APRN Ot Z88.2 ALLERGY STATUS TO SULFONAMIDES STATUS 10/15/2018 DONATO VELOZ APRN Ot Z90.710 ACQUIRED ABSENCE OF BOTH CERVIX [...] - 07/19/18 19:20 Lipase 37 U/L 8-78 Complete urinalysis with reflex to culture - 10/07/18 18:58 Urine color determination YELLOW NRG Urine clarity determination CLEAR NRG Urine pH measurement by test strip 6.5 5-9 Specific gravity of urine by test [...] NORMAL Urine leukocyte esterase detection by dipstick 1+ NEGATIVE Automated urine sediment erythrocyte count by [...] urinalysis with reflex to culture NO NRG PT panel in platelet poor plasma by coagulation assay - 10/07/18 19:05 Prothrombin time (PT) in platelet poor plasma by coagulation assay 12.5 s 12.2-14.7 INR in platelet poor plasma or blood by coagulation assay 0.9 0.8-1.4 Activated partial thromboplastin time (aPTT) in platelet poor plasma bycoagulation assay - 10/07/18 19:05 Activated partial thromboplastin time (aPTT) in platelet poor plasma bycoagulation assay 31 s 24-35 Complete blood count (CBC) with automated white blood cell (WBC) differential - 10/07/18 19:05 Blood leukocytes automated count (number/volume) 7.4 10*3/uL 4.3-11.0 Blood erythrocytes automated count (number/volume) 4.30 10*6/uL 4.35-5.85 Venous blood hemoglobin measurement (mass/volume) 14.6 g/dL 11.5-16.0 Blood hematocrit (volume fraction) 43 % 35-52 Automated erythrocyte mean corpuscular volume 101 [foz_us] 80-99 Automated erythrocyte mean corpuscular hemoglobin (mass per erythrocyte) 34 pg 25-34 Automated erythrocyte mean corpuscular hemoglobin concentration measurement ( mass/volume) 34 g/dL 32-36 Automated erythrocyte distribution width ratio 12.2 % 10.0-14.5 Automated blood platelet count (count/volume) 248 10*3/uL 130-400 Automated blood platelet mean volume measurement 9.6 [foz_us] 7.4-10.4 Automated blood neutrophils/100 leukocytes 62 % 42-75 Automated blood lymphocytes/100 leukocytes 29 % 12-44 Blood monocytes/100 leukocytes 7 % 0-12 Automated blood eosinophils/100 leukocytes 1 % 0-10 Automated blood basophils/100 leukocytes 1 % 0-10 Blood neutrophils automated count (number/volume) 4.6 10*3 1.8-7.8 Blood lymphocytes automated count (number/volume) 2.2 10*3 1.0-4.0 Blood monocytes automated count (number/volume) 0.5 10*3 0.0-1.0 Automated eosinophil count 0.1 10*3/uL 0.0-0.3 Automated blood basophil count (count/volume) 0.0 10*3/uL 0.0-0.1 Comprehensive metabolic panel - 10/07/18 19:05 Serum or plasma sodium measurement (moles/volume) 141 mmol/L 135-145 Serum or plasma potassium measurement (moles/volume) 3.9 mmol/L 3.6-5.0 Serum or plasma chloride measurement (moles/volume) 104 mmol/L 98-107 Carbon dioxide 25 mmol/L 21-32 Serum or plasma anion gap determination (moles/volume) 12 mmol/L 5-14 Serum or plasma urea nitrogen measurement (mass/volume) 5 mg/dL 7-18 Serum or plasma creatinine measurement (mass/volume) 0.79 mg/dL 0.60-1.30 Serum or plasma urea nitrogen/creatinine mass ratio 6 NRG Serum or plasma creatinine measurement with calculation of estimated glomerular filtration rate > NRG Serum or plasma glucose measurement (mass/volume) 89 mg/dL 70-105 Serum or plasma calcium measurement (mass/volume) 9.6 mg/dL 8.5-10.1 Serum or plasma total bilirubin measurement (mass/volume) 0.2 mg/dL 0.1-1.0 Serum or plasma alkaline phosphatase measurement (enzymatic activity/volume) 44 U/L 40-136 Serum or plasma aspartate aminotransferase measurement (enzymatic activity/ volume) 20 U/L 5-34 Serum or plasma alanine aminotransferase measurement (enzymatic activity/volume ) 16 U/L 0-55 Serum or plasma protein measurement (mass/volume) 7.1 g/dL 6.4-8.2 Serum or plasma albumin measurement (mass/volume) 4.1 g/dL 3.2-4.5 CALCIUM CORRECTED 9.5 mg/dL 8.5-10.1 Magnesium - 10/07/18 19:05 Magnesium 2.2 mg/dL 1.8-2.4 Serum or plasma troponin i.cardiac measurement (mass/volume) - 10/07/18 19:05 Serum or plasma troponin i.cardiac measurement (mass/volume) < ng/ mL <0.30 Myoglobin, serum - 10/07/18 19:05 Myoglobin, serum 48.3 ng/mL 10.0-92.0 Serum or plasma amylase measurement (enzymatic activity/volume) - 10/07/18 19: 05 Serum or plasma amylase measurement (enzymatic activity/volume) 126 U/L 25-125 Serum or plasma lithium measurement (moles/volume) - 10/07/18 19:05 BNP level 10.4 pg/mL <100.0 Lipase - 10/07/18 19:05 Lipase 39 U/L 8-78 Encounters ACCT No. Visit Date/Time Discharge Status Pt. Type Provider Facility Loc./Unit Complaint [id number] 10/07/2018 18:47:00 10/07/2018 20:30:00 DIS Emergency DONATO VELOZ APRN [facility] ER UPPER STOMACH/CHEST PAIN/ SOB [id number] 07/19/2018 19:03:00 07/19/2018 22:32:00 DIS Emergency MANOLO MD, ANDREI Ball [facility] ER CHEST PAIN/SHAKY/ WEAKNESS/COUGH [id number] 09/01/2017 15:39:00 09/01/2017 23:59:59 CLS Outpatient RANDA MORAN CUT IN WORKER [facility] RAD PAIN LATERAL EDGE OF LEFT ANKLE [id number] 08/08/2017 13:35:00 08/08/2017 14:30:00 DIS Emergency SUMAYA TOVAR, MADIE Costa [facility] ER NO MEDS FOR 1 MO/ LUPUS [id number] 06/23/2017 20:43:00 06/23/2017 23:00:00 DIS Emergency TRACY TOVAR, IRINA Bennett [facility] ER ABD PAIN [id number] 01/27/2017 14:03:00 01/27/2017 23:59:59 CLS Preadmit ANAIS SETH DO S [facility] REHAB CERVICAL DDD AND B ARM NUMBNESS [id number] 10/16/2016 13:07:00 10/16/2016 23:59:59 CLS Outpatient NEVILLE CASAREZNat Flores CUT IN WORKER [facility] RAD RU1.82 [id number] 10/13/2016 16:22:00 10/13/2016 18:00:00 DIS Emergency DONATO VELOZ CUT IN WORKER [facility] ER HEAD PAIN [id number] 09/13/2015 19:33:00 09/13/2015 22:16:00 DIS Emergency DONATO VELOZ CUT IN WORKER [facility] ER UNABLE TO URINATE [id number] 07/19/2018 22:06:00 Document Registration
--- NOTE | 2018-12-18 17:55 | ED 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 Problem ---
General Stated Complaint: PT HAS MS, NECK PAIN, LOSING BLADDER FUNC. Source: patient Exam Limitations: no limitations History of Present Illness Date Seen by Provider: Dec 18, 2018 Time Seen by Provider: 17:52 Initial Comments To ER with reports of severe neck pain for 3 days that has caused her to have "hard muscles", general fatigue, and states that she lost control of her bladder is morning. No fevers or chills. She is on prednisone 10 mg daily for a reported history of multiple sclerosis that was diagnosed at [facility] and she lives in [place]. She was formerly on Plaquenil but states that she hasn't been on this in 3 years since she moved here because it caused her bad side effects. She is on prednisone 10mg daily for lupus as well. Timing/Duration: other (3 days) Severity: moderate Associated Symptoms: weakness Allergies and Home Medications Allergies Coded Allergies: Sulfa (Sulfonamide Antibiotics) (Verified Allergy, Unknown, 09/13/15) Home Medications Acyclovir 200 Mg Capsule, 200 MG PO DAILY, (Reported) Acyclovir 200 Mg Capsule, 200 MG PO DAILY Prescribed by: DONATO VELOZ on 10/13/16 175 Carisoprodol 250 Mg Tablet, 250 MG PO TID Prescribed by: DONATO VELOZ on 10/13/161749 Cefuroxime Axetil 250 Mg Tablet, 250 MG PO BID Prescribed by: DONATO VELOZ on 12/18/181908 Cyclobenzaprine HCl 10 Mg Tablet, 10 MG PO Q8H PRN for SPASMS Prescribed by: IRINA MOLINA on 06/23/17 2250 Hydrocodone/Acetaminophen 1 Each Tablet, 1 EACH PO Q6H PRN for PAIN Prescribed by: DONATO VELOZ on 09/13/15 2143 Hydroxychloroquine Sulfate 200 Mg Tablet, 200 MG PO DAILY, (Reported) Ketorolac Tromethamine 10 Mg Tablet, 10 MG PO Q8H PRN for PAIN-MODERATE TO SEVERE Prescribed by: DONATO VELOZ on 12/18/181916 Levothyroxine Sodium 88 Mcg Tablet, 88 MCG PO DAILY, (Reported) Pantoprazole Sodium 40 Mg Tablet., 40 MG PO DAILY Prescribed by: DONATO VELOZ on 10/07/182011 Pantoprazole Sodium 40 Mg Tablet.dr 40 MG PO DAILY Prescribed by: DONATO VELOZ on 12/18/181916 Paroxetine HCl 20 Mg Tablet, 20 MG PO DAILY, (Reported) Prednisone 10 Mg Tab, 60 MG PO UD 60 mg daily for 2 days then 50 mg daily for 2 days then 40 mg daily for 2 days then 30 mg daily for 2 days then 20mg daily for 2 days then resume normal dose of 10mg daily Prescribed by: DONATO VELOZ on 12/18/181906 Sucralfate 1 Gm Tablet, 1 GM PO ACHS Prescribed by: DONATO VELOZ on 10/07/182011 Patient Home Medication List Home Medication List Reviewed: Yes Review of Systems Review of Systems Constitutional: see HPI, weakness Eyes: No Symptoms Reported Ears, Nose, Mouth, Throat: no symptoms reported Respiratory: no symptoms reported Cardiovascular: no symptoms reported Genitourinary: no symptoms reported Musculoskeletal: no symptoms reported Skin: no symptoms reported Psychiatric/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: See HPI Endocrine: No Symptoms Reported Hematologic/Lymphatic: No Symptoms Reported Past Nakhdiy-Bphcxi-Kebzbx Hx Patient Social History Type Used: Cigarettes 2nd Hand Smoke Exposure: No Recent Foreign Travel: No Contact w/Someone Who Travel: No Recent Hopitalizations: No Immunizations Up To Date Tetanus Booster (TDap): Unknown Seasonal Allergies Seasonal Allergies: No Past Medical History Surgeries: Yes Bladder Surgery, Hysterectomy Respiratory: Yes COPD Cardiac: No 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 Multiple Sclerosis [employer] History: Menopausal Genitourinary: Yes (bladder issues related to mesh, chronic abdominal pelvic pain) Gastrointestinal: No Musculoskeletal: Yes Chronic Back Pain Endocrine: Yes Hypothyroidsim, Lupus HEENT: No Cancer: No Psychosocial: No Integumentary: No Blood Disorders: No Physical Exam Vital Signs Vital Signs - First Documented 12/18/18 17:45 Temp 97.9 Pulse 100 Resp 22 B/P (MAP) 114/76 (89) Pulse Ox 99 O2 Delivery Room Air Capillary Refill : Height, Weight, BMI Height: 5'10.00" Weight: 110lbs. oz. 49.209153ip; 20.09 BMI Method:Stated General Appearance: WD/WN, no apparent distress HEENT: PERRL/EOMI, normal ENT inspection Neck: non-tender, full range of motion, other (walks in a very awkward fashion with her head extended, bent forward at the waist flexed at the knees with a shuffling gait.) Respiratory: lungs clear, normal breath sounds, no respiratory distress, no accessory muscle use Cardiovascular: regular rate, rhythm, no murmur Gastrointestinal: normal bowel sounds, non tender, soft Extremities: normal range of motion, non-tender Neurologic/Psychiatric: alert, normal mood/affect, oriented x 3 Crainal Nerves: normal hearing, normal speech, PERRL Skin: warm/dry, pallor Progress/Results/Core Measures Results/Orders Lab Results Laboratory Tests Test 12/18/18 17:50 12/18/18 18:16 Range/Units White Blood Count 10.9 4.3-11.0 10^3/uL Red Blood Count 4.38 4.35-5.85 10^6/uL Hemoglobin 15.3 11.5-16.0 G/DL Hematocrit 44 35-52 % Mean Corpuscular Volume 101 H 80-99 FL Mean Corpuscular Hemoglobin 35 H 25-34 PG Mean Corpuscular Hemoglobin Concent 35 32-36 G/DL Red Cell Distribution Width 12.6 10.0-14.5 % Platelet Count 294 130-400 10^3/uL Mean Platelet Volume 9.5 7.4-10.4 FL Neutrophils (%) (Auto) 57 42-75 % Lymphocytes (%) (Auto) 36 12-44 % Monocytes (%) (Auto) 6 0-12 % Eosinophils (%) (Auto) 1 0-10 % Basophils (%) (Auto) 1 0-10 % Neutrophils # (Auto) 6.2 1.8-7.8 X 10^3 Lymphocytes # (Auto) 3.9 1.0-4.0 X 10^3 Monocytes # (Auto) 0.6 0.0-1.0 X 10^3 Eosinophils # (Auto) 0.1 0.0-0.3 10^3/uL Basophils # (Auto) 0.1 0.0-0.1 10^3/uL Erythrocyte Sedimentation Rate 6 0-30 MM/HR Sodium Level 138 135-145 MMOL/L Potassium Level 3.5 L 3.6-5.0 MMOL/L Chloride Level 105 98-107 MMOL/L Carbon Dioxide Level 24 21-32 MMOL/L Anion Gap 9 5-14 MMOL/L Blood Urea Nitrogen 6 L 7-18 MG/DL Creatinine 0.80 0.60-1.30 MG/DL Estimat Glomerular Filtration Rate > 60 BUN/Creatinine Ratio 8 Glucose Level 84 70-105 MG/DL Calcium Level 9.1 8.5-10.1 MG/DL Corrected Calcium 9.2 8.5-10.1 MG/DL Total Bilirubin 0.2 0.1-1.0 MG/DL Aspartate Amino Transf (AST/SGOT) 20 5-34 U/L Alanine Aminotransferase (ALT/SGPT) 15 0-55 U/L Alkaline Phosphatase 38 L 40-136 U/L Creatine Kinase MB 0.5 <6.6 NG/ML Myoglobin 35.4 10.0-92.0 NG/ML Troponin I < 0.028 <0.028 NG/ML C-Reactive Protein High Sensitivity 0.14 0.00-0.50 MG/DL Total Protein 6.8 6.4-8.2 GM/DL Albumin 3.9 3.2-4.5 GM/DL Thyroid Stimulating Hormone (TSH) 2.14 0.35-4.94 UIU/ML Serum Alcohol < 10 <10 MG/DL Urine Color YELLOW Urine Clarity CLEAR Urine pH 7 5-9 Urine Specific [place] 1.010 L 1.016-1.022 Urine Protein NEGATIVE NEGATIVE Urine Glucose (UA) NEGATIVE NEGATIVE Urine Ketones NEGATIVE NEGATIVE Urine Nitrite NEGATIVE NEGATIVE Urine Bilirubin NEGATIVE NEGATIVE Urine Urobilinogen NORMAL NORMAL MG/DL Urine Leukocyte Esterase 3+ H NEGATIVE Urine RBC (Auto) NEGATIVE NEGATIVE Urine RBC NONE /HPF Urine WBC 5-10 H /HPF Urine Squamous Epithelial Cells RARE /HPF Urine Crystals NONE /LPF Urine Bacteria NEGATIVE /HPF Urine Casts NONE /LPF Urine Mucus NEGATIVE /LPF Urine Culture Indicated YES Urine Opiates Screen POSITIVE H NEGATIVE Urine Oxycodone Screen NEGATIVE NEGATIVE Urine Methadone Screen NEGATIVE NEGATIVE Urine Propoxyphene Screen NEGATIVE NEGATIVE Urine Barbiturates Screen NEGATIVE NEGATIVE Ur Tricyclic Antidepressants Screen NEGATIVE NEGATIVE Urine Phencyclidine Screen NEGATIVE NEGATIVE Urine Amphetamines Screen NEGATIVE NEGATIVE Urine Methamphetamines Screen NEGATIVE NEGATIVE Urine Benzodiazepines Screen POSITIVE H NEGATIVE Urine Cocaine Screen NEGATIVE NEGATIVE Urine Cannabinoids Screen NEGATIVE NEGATIVE Micro Results Microbiology 12/18/18 Influenza Types A,B Antigen (BLANCA) - Final, Complete My Orders Orders - DONATO VELOZ LEGAL JOB TITLES Cbc With Automated Diff (12/18/18 17:51) Erythrocyte Sedimentation Rate (12/18/18 17:51) Hs C Reactive Protein (12/18/18 17:51) Ua Culture If Indicated (12/18/18 17:51) Influenza A And B Antigens (12/18/18 17:51) Myoglobin Serum (12/18/18 17:51) Creatine Kinase Mb (12/18/18 17:51) Chest 1 View, Ap/Pa Only (12/18/18 17:51) Troponin I (12/18/18 17:51) Thyroid Stimulating Hormone (12/18/18 17:51) Drug Screen Stat (Urine) (12/18/18 17:51) Ct Head/Cervical Spine Wo (12/18/18 17:51) Ns Iv 1000 Ml (Sodium Chloride 0.9%) (12/18/18 18:00) Ketorolac Injection (Toradol Injection) (12/18/18 18:00) Comprehensive Metabolic Panel (12/18/18 18:14) Alcohol (12/18/18 18:23) Urine Culture (12/18/18 18:16) Ceftriaxone For Iv Use (Rocephin For I (12/18/18 18:45) Methylprednisolone Sod Succ (Solu-Medrol (12/18/18 19:15) Medications Given in ED Current Medications Medications Dose Ordered Sig/Jens Route Start Time Stop Time Status Last Admin Dose Admin Ceftriaxone Sodium 1000 mg/ Sterile Water 10 ml @ 200 mls/hr ONCE ONCE IV 12/18/18 18:45 12/18/18 18:47 DC 12/18/18 18:52 200 MLS/HR Ketorolac Tromethamine 15 mg ONCE ONCE IVP 12/18/18 18:00 12/18/18 18:01 DC 12/18/18 18:36 15 MG Methylprednisolone Sodium Succinate 125 mg ONCE ONCE IVP 12/18/18 19:15 12/18/18 19:16 DC 12/18/18 19:23 125 MG Vital Signs/I&O 12/18/18 17:45 Temp 97.9 Pulse 100 Resp 22 B/P (MAP) 114/76 (89) Pulse Ox 99 O2 Delivery Room Air Diagnostic Imaging Diagonstic Imaging: Xray, CT Plain Films/CT/US/NM/MRI: chest, c-spine, head Comments NAME: CHELIANAIS Mojica MED REC#: [id number] PT STATUS: REG ER : 1960 PHYSICIAN: DONATO VELOZ APRN ADMIT DATE: 12/18/18/ER Draft Date of Exam:12/18/18 CHEST 1 VIEW, AP/PA ONLY INDICATION: Chest pain and shortness of breath Comparison is made with prior examination from 10/07/18. FINDINGS: The heart size is normal. Mediastinum is unremarkable. There is no pleural effusion, pneumothorax or pneumonia. There is air-trapping compatible with COPD. IMPRESSION: No acute cardiopulmonary abnormality COPD. Dictated on workstation # [id number] Dict: 12/18/181813 Trans: 12/18/181816 [facility] [id number] Interpreted by: UMA JONES MD Electronically signed by: NAME: ANAIS BOWER [facility] REC#: [id number] PT STATUS: REG ER : 1960 PHYSICIAN: DONATO VELOZ APRN ADMIT DATE: 12/18/18/ER Draft Date of Exam:12/18/18 CT HEAD/CERVICAL SPINE WO PROCEDURE: CT head and CT cervical spine without contrast. TECHNIQUE: Multiple contiguous axial images were obtained through the brain and cervical spine without the use of intravenous contrast. Sagittal and coronal reformations through the cervical spine were then performed. INDICATION: Head and neck pain. COMPARISON: CT head from 10/13/2016. FINDINGS: CT head: No hyperdense hemorrhage or space-occupying mass. No hydrocephalus or midline shift. There are a few scattered periventricular white matter hypodensities which may relate to patient's known multiple sclerosis. However, these are much better assessed by MRI. No acute calvarial abnormality. Paranasal sinuses and mastoid air cells are clear. CT cervical spine: No fracture or malalignment. No high-grade spinal canal narrowing. No osseous foraminal narrowing. Lung apices are clear. No cervical lymphadenopathy. Airway is widely patent. IMPRESSION: 1. No acute intracranial process. 2. No acute osseous abnormality or spinal stenosis in the cervical spine. Dictated on workstation # [id number] Dict: 12/18/181836 Trans: 12/18/18 184 [facility] [id number] Interpreted by: CAESAR POLLARD MD Electronically signed by: Departure Communication (Admissions) 1900-discussed the case with Dr. Ferguson. He recommends that since the patient is ambulatory and MRI of the brain and cervical spine done just over 2 years ago here does not show any evidence of white matter lesion or disease. This does not support her self-reported history of multiple sclerosis. We will go ahead and do a dose of Solu-Medrol here, prednisone taper at home starting at 60 mg as well as oral antibiotics for the urinary tract infection which may be causing her symptoms. She will have hospital coordinator call the patient tomorrow with follow-up appointment this week and to schedule a repeat MRI which is not available at this time.. Additionally, urinary tract infection would account for her urinary symptoms this morning. Patient states that she's had a similar episode before of symptoms like this and was admitted to the hospital and given IV steroids. 1934- she is ambulatory out of the emergency room with a completely upright gait normal and non-shuffling, no flexion at the knees or hips as upon arrival and no extension at the neck as upon arrival. Impression Primary Impression: Weakness Additional Impressions: Neck pain Urinary tract infection Qualified Codes: N30.00 - Acute cystitis without hematuria Disposition: HOME, SELF-CARE Condition: Stable Departure-Patient Inst. Decision time for Depature: 19:03 Referrals: ELY DOBBINS MD (PCP/Family) Primary Care Physician Patient Instructions: Generalized Weakness Add. Discharge Instructions: 1. Take the oral steroids at home which are as effective as IV steroids. Take antibiotics as directed for the bladder infection 2. Follow-up with [facility]. [facility] will call you tomorrow with an appointment time. Scripts Ketorolac Tromethamine (Ketorolac Tromethamine) 10 Mg Tablet 10 MG PO Q8H PRN for PAIN-MODERATE TO SEVERE, #10 TAB Prov: DONATO VELOZ LEGAL JOB TITLES 12/18/18 Pantoprazole Sodium (Protonix) 40 Mg Tablet.dr 40 MG PO DAILY, #20 TAB Prov: DONATO VELOZ LEGAL JOB TITLES 12/18/18 Cefuroxime Axetil (Cefuroxime) 250 Mg Tablet 250 MG PO BID, #10 TAB Prov: DONATO VELOZ LEGAL JOB TITLES 12/18/18 Prednisone (Prednisone) 10 Mg Tab 60 MG PO UD, #40 EACH 60 mg daily for 2 days then 50 mg daily for 2 days then 40 mg daily for 2 days then 30 mg daily for 2 days then 20mg daily for 2 days then resume normal dose of 10mg daily Prov: DONATO VELOZ APRN 12/18/18 Copy Copies To 1: ELY DOBBINS MD, PETER J APRN Dec 18, 2018 17:55
--- NOTE | 2018-12-18 17:55 | NUR ---
Pt's white gold and opal necklace placed in bio bag in pt's purse.
[2018-12-18] MEDS ORDERED: KETOROLAC 30 MG/ML VIAL IVP ONE (18:00)
[2018-12-18] MEDS ORDERED: NS IV 1000 ML 1,000 ML IV SCH (18:00)
[2018-12-18 18:14] LABS: BASOPHILS # (AUTO) 0.1 10^3/uL (0.0-0.1); BASOPHILS % (AUTO) 1 % (0-10); EOSINOPHILS # (AUTO) 0.1 10^3/uL (0.0-0.3); EOSINOPHILS % (AUTO) 1 % (0-10); HEMATOCRIT 44 % (35-52); HEMOGLOBIN 15.3 G/DL (11.5-16.0); LYMPHOCYTES # (AUTO) 3.9 X 10^3 (1.0-4.0); LYMPHOCYTES % (AUTO) 36 % (12-44); MEAN CORPUSCULAR HEMOGLOBIN 35 PG (25-34); MEAN CORPUSCULAR HGB CONC 35 G/DL (32-36); MEAN CORPUSCULAR VOLUME 101 FL (80-99); MEAN PLATELET VOLUME 9.5 FL (7.4-10.4); MONOCYTES # (AUTO) 0.6 X 10^3 (0.0-1.0); MONOCYTES % (AUTO) 6 % (0-12); NEUTROPHILS # (AUTO) 6.2 X 10^3 (1.8-7.8); NEUTROPHILS % (AUTO) 57 % (42-75); PLATELET COUNT 294 10^3/uL (130-400); RED CELL DISTRIBUTION WIDTH 12.6 % (10.0-14.5); WHITE BLOOD COUNT 10.9 10^3/uL (4.3-11.0)
--- NOTE | 2018-12-18 18:17 | Diagnostic Imaging Report ---
INDICATION: Chest pain and shortness of breath Comparison is made with prior examination from 10/07/18. FINDINGS: The heart size is normal. Mediastinum is unremarkable. There is no pleural effusion, pneumothorax or pneumonia. There is air-trapping compatible with COPD. IMPRESSION: No acute cardiopulmonary abnormality COPD. Dictated by: Dictated on workstation # [id number]
[2018-12-18 18:27] LABS: BILIRUBIN,URINE NEGATIVE (NEGATIVE); CLARITY,URINE CLEAR; COLOR,URINE YELLOW; GLUCOSE, URINE (UA) NEGATIVE (NEGATIVE); KETONES,URINE NEGATIVE (NEGATIVE); LEUKOCYTE ESTERASE ,URINE 3+ (NEGATIVE); NITRITE,URINE NEGATIVE (NEGATIVE); PH,URINE 7 (5-9); PROTEIN,URINE NEGATIVE (NEGATIVE); UROBILINOGEN,URINE NORMAL (NORMAL)
[2018-12-18 18:33] LABS: ALANINE AMINOTRANSFERASE 15 U/L (0-55); ALBUMIN 3.9 GM/DL (3.2-4.5); ALKALINE PHOSPHATASE 38 U/L (40-136); BILIRUBIN,TOTAL 0.2 MG/DL (0.1-1.0); BUN/CREATININE RATIO 8; CALCIUM 9.1 MG/DL (8.5-10.1); CARBON DIOXIDE 24 MMOL/L (21-32); CHLORIDE 105 MMOL/L (98-107); GFR ESTIMATED > 60; GLUCOSE 84 MG/DL (70-105); POTASSIUM 3.5 MMOL/L (3.6-5.0); SODIUM 138 MMOL/L (135-145); TOTAL PROTEIN 6.8 GM/DL (6.4-8.2)
[2018-12-18 18:35] LABS: ERYTHROCYTE SEDIMENTATION RATE 6 MM/HR (0-30)
[2018-12-18 18:35] LABS: BACTERIA,URINE NEGATIVE /HPF; SQUAMOUS EPITHELIAL CELL,UR RARE /HPF
[2018-12-18 18:43] LABS: AMPHETAMINE SCREEN, URINE NEGATIVE (NEGATIVE); BARBITURATE SCREEN URINE NEGATIVE (NEGATIVE); BENZODIAZEPINES SCREEN URINE POSITIVE (NEGATIVE); CANNABINOID SCREEN, URINE NEGATIVE (NEGATIVE); COCAINE SCREEN URINE NEGATIVE (NEGATIVE); METHADONE STAT NEGATIVE (NEGATIVE); METHAMPHETAMINE SCREEN URINE S NEGATIVE (NEGATIVE); OPIATE SCREEN URINE POSITIVE (NEGATIVE); OXYCODONE STAT NEGATIVE (NEGATIVE); PROPOXYPHENE STAT NEGATIVE (NEGATIVE); TRICYCLIC ANTIDEPRESSANTS SCRE NEGATIVE (NEGATIVE)
--- NOTE | 2018-12-18 18:44 | Diagnostic Imaging Report ---
PROCEDURE: CT head and CT cervical spine without contrast. TECHNIQUE: Multiple contiguous axial images were obtained through the brain and cervical spine without the use of intravenous contrast. Sagittal and coronal reformations through the cervical spine were then performed. INDICATION: Head and neck pain. COMPARISON: CT head from 10/13/2016. FINDINGS: CT head: No hyperdense hemorrhage or space-occupying mass. No hydrocephalus or midline shift. There are a few scattered periventricular white matter hypodensities which may relate to patient's known multiple sclerosis. However, these are much better assessed by MRI. No acute calvarial abnormality. Paranasal sinuses and mastoid air cells are clear. CT cervical spine: No fracture or malalignment. No high-grade spinal canal narrowing. No osseous foraminal narrowing. Lung apices are clear. No cervical lymphadenopathy. Airway is widely patent. IMPRESSION: 1. No acute intracranial process. 2. No acute osseous abnormality or spinal stenosis in the cervical spine. Dictated by: Dictated on workstation # [id number]
[2018-12-18] MEDS ORDERED: cefTRIAXone FOR IV USE 1,000 MG in WATER (STERILE) FOR INJECTION 10 ML IV ONE (18:45)
[2018-12-18 18:53] LABS: CREATINE KINASE MB 0.5 NG/ML (<6.6); MYOGLOBIN SERUM 35.4 NG/ML (10.0-92.0)
[2018-12-18] MEDS ORDERED: methylPREDNISolone 125 MG (Solu-MEDROL) VIAL IVP ONE (19:15)
[2018-12-18 19:30] VITALS: BP 118/82
== END 2018-12-18 19:30 | disposition home or self-care (01) ==
LOC: EDUNIT# 17:38 → ER 17:40
DX: N39.0 Urinary tract infection, site not specified (principal); R53.1 Weakness; M54.2 Cervicalgia; M32.9 Systemic lupus erythematosus, unspecified; J44.9 Chronic obstructive pulmonary disease, unspecified; G35 Multiple sclerosis; E03.9 Hypothyroidism, unspecified; Z90.710 Acquired absence of both cervix and uterus; Z88.2 Allergy status to sulfonamides; Z79.52 Long term (current) use of systemic steroids
CPT/HCPCS: 36415; 70450; 71045; 72125; 80053; 80306; 80320; 81000; 82553; 83874; 84443; 84484; 85025; 85652; 86141; 87088; 87804; 96361; 96365; 96375

== ENCOUNTER 2019-01-05 15:37 | Emergency (ER) | payer MEDICARE, MEDICAID ==
[~2019-01-05] VITALS: Ht 177.8 cm; Wt 53.1 kg
[~2019-01-05 15:37] MED LIST changes: +CEFU250T80 PO; +KETO10TA PO; +PANT40TA2 PO; +PRD10T PO; +SUCR1TAB PO
[2019-01-05] MEDS ORDERED: ONDANSETRON 4 MG/2 ML (SDV) Z0FRAN IVP ONE ×2 (16:00→18:00)
[2019-01-05] MEDS ORDERED: fentaNYL INJECTION 100 MCG/2 ML AMP IVP ONE (16:00)
[2019-01-05] MEDS ORDERED: NS IV 1000 ML 1,000 ML IV SCH (16:00)
[2019-01-05 16:02] LABS: BILIRUBIN,URINE NEGATIVE (NEGATIVE); CLARITY,URINE CLEAR; COLOR,URINE YELLOW; GLUCOSE, URINE (UA) NEGATIVE (NEGATIVE); KETONES,URINE NEGATIVE (NEGATIVE); LEUKOCYTE ESTERASE ,URINE NEGATIVE (NEGATIVE); NITRITE,URINE NEGATIVE (NEGATIVE); PH,URINE 6.5 (5-9); PROTEIN,URINE NEGATIVE (NEGATIVE); UROBILINOGEN,URINE NORMAL (NORMAL)
[2019-01-05 16:14] LABS: BASOPHILS % (AUTO) 0 % (0-10); EOSINOPHILS # (AUTO) 0.1 10^3/uL (0.0-0.3); EOSINOPHILS % (AUTO) 1 % (0-10); HEMATOCRIT 42 % (35-52); HEMOGLOBIN 14.7 G/DL (11.5-16.0); LYMPHOCYTES # (AUTO) 3.1 X 10^3 (1.0-4.0); LYMPHOCYTES % (AUTO) 36 % (12-44); MEAN CORPUSCULAR HEMOGLOBIN 35 PG (25-34); MEAN CORPUSCULAR HGB CONC 35 G/DL (32-36); MEAN CORPUSCULAR VOLUME 101 FL (80-99); MEAN PLATELET VOLUME 8.9 FL (7.4-10.4); MONOCYTES # (AUTO) 0.5 X 10^3 (0.0-1.0); MONOCYTES % (AUTO) 6 % (0-12); NEUTROPHILS % (AUTO) 57 % (42-75); PLATELET COUNT 277 10^3/uL (130-400); RED CELL DISTRIBUTION WIDTH 12.6 % (10.0-14.5); WHITE BLOOD COUNT 8.8 10^3/uL (4.3-11.0)
[2019-01-05 16:28] LABS: BACTERIA,URINE NEGATIVE /HPF
[2019-01-05 16:42] LABS: BUN/CREATININE RATIO 11; CARBON DIOXIDE 24 MMOL/L (21-32); CHLORIDE 104 MMOL/L (98-107); CREATININE SERUM 0.84 MG/DL (0.60-1.30); POTASSIUM 3.6 MMOL/L (3.6-5.0); SODIUM 139 MMOL/L (135-145)
[2019-01-05 16:43] LABS: ALANINE AMINOTRANSFERASE 15 U/L (0-55); ALBUMIN 3.8 GM/DL (3.2-4.5); ALKALINE PHOSPHATASE 36 U/L (40-136); AMYLASE 95 U/L (25-125); BILIRUBIN,TOTAL 0.5 MG/DL (0.1-1.0); CALCIUM 9.9 MG/DL (8.5-10.1); GFR ESTIMATED > 60; GLUCOSE 95 MG/DL (70-105); LIPASE 34 U/L (8-78); TOTAL PROTEIN 6.5 GM/DL (6.4-8.2)
[2019-01-05] MEDS ORDERED: RECEIVED CONTRAST 20 ML VIAL IV SCH (17:00)
[2019-01-05] MEDS ORDERED: IOHEXOL 350 MG/ML 100 ML (OMNIPAQUE 350) VIAL IV ONE (17:00)
--- NOTE | 2019-01-05 17:22 | ED Abdominal Pain ---
General Chief Complaint: Abdominal/GI Problems Stated Complaint: FREQUENT URINATION,LOWER ABD PAIN Nursing Triage Note: PT PRESENTS TO ED WITH COMPLAINTS ABDOMINAL PAIN AND FREQUENCY AND SOME INCONTINENT EPISODES X2 DAYS. PT REPORTS RECENTLY TREATED IN ED FOR A UTI A COUPLE WEEKS AGO WITH ROCEPHIN. Sepsis Screen: No Definite Risk Source of Information: Patient Exam Limitations: No Limitations History of Present Illness Date Seen by Provider: Jan 05, 2019 Time Seen by Provider: 16:00 Initial Comments 58-year-old female who presents to the emergency room with complaints of lower left quadrant abdominal pain, nausea, vomiting, urinary frequency and burning for the past 2 days. She also reports that she's had some stress incontinence. She was seen and evaluated 2 weeks ago for urinary tract infection in this emergency room and was treated with Rocephin and oral antibiotics but is afraid she did not get over her urinary tract infection. Timing/Duration: 2-3 Days Severity/Quality: Sharp Location: LLQ Radiation: No Radiation Associated Symptoms: Nausea/Vomiting Allergies and Home Medications Allergies Coded Allergies: Sulfa (Sulfonamide Antibiotics) (Verified Allergy, Unknown, 09/13/15) Home Medications Acyclovir 200 Mg Capsule, 200 MG PO DAILY, (Reported) Acyclovir 200 Mg Capsule, 200 MG PO DAILY Prescribed by: DONATO VELOZ on 10/13/16 1750 Carisoprodol 250 Mg Tablet, 250 MG PO TID Prescribed by: DONATO VELOZ on 10/13/16 1750 Cyclobenzaprine HCl 10 Mg Tablet, 10 MG PO Q8H PRN for SPASMS Prescribed by: IRINA MOLINA on 06/23/17 2250 Hydrocodone/Acetaminophen 1 Each Tablet, 1 EACH PO Q6H PRN for PAIN Prescribed by: DONATO VELOZ on 09/13/15 2143 Hydroxychloroquine Sulfate 200 Mg Tablet, 200 MG PO DAILY, (Reported) Levothyroxine Sodium 88 Mcg Tablet, 88 MCG PO DAILY, (Reported) Ondansetron HCl 4 Mg Tab, 4 MG PO Q4H PRN for NAUSEA/VOMITING-1ST LINE Prescribed by: CIRILO VASQUEZ on 01/05/19 182 Paroxetine HCl 20 Mg Tablet, 20 MG PO DAILY, (Reported) Prednisone 10 Mg Tab, 60 MG PO UD 60 mg daily for 2 days then 50 mg daily for 2 days then 40 mg daily for 2 days then 30 mg daily for 2 days then 20mg daily for 2 days then resume normal dose of 10mg daily Prescribed by: DONATO VELOZ on 12/18/18 3635 Patient Home Medication List Home Medication List Reviewed: Yes Review of Systems Review of Systems Constitutional: no symptoms reported, see HPI Gastrointestinal: See HPI, Abdominal Pain, Nausea, Vomiting Genitourinary: See HPI, Frequency All Other Systems Reviewed Negative Unless Noted: Yes Past Ywqyxmz-Anbvys-Jhowhg Hx Past Med/Social Hx: Reviewed Nursing Past Med/Soc Hx Patient Social History Alcohol Use: Denies Use Recreational Drug Use: No Smoking Status: Current Everyday Smoker Type Used: Cigarettes 2nd Hand Smoke Exposure: Yes Recent Foreign Travel: No Contact w/Someone Who Travel: No Recent Infectious Disease Expo: No Recent Hopitalizations: No Physical Abuse: No Sexual Abuse: No Mistreated: No Fear: No Immunizations Up To Date Tetanus Booster (TDap): Unknown Seasonal Allergies Seasonal Allergies: No Past Medical History Surgeries: Yes Bladder Surgery, Hysterectomy Respiratory: Yes COPD Cardiac: No 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 oz. 53.243002lt; 20.09 BMI Method:Stated General Appearance: WD/WN, no apparent distress Respiratory: chest non-tender, lungs clear, normal breath sounds, no respiratory distress, no accessory muscle use Cardiovascular: normal peripheral pulses, regular rate, rhythm, no edema, no gallop, no JVD, no murmur Gastrointestinal: normal bowel sounds, soft, no organomegaly, no pulsatile mass , tenderness (left lower quadrant tenderness) Extremities: no pedal edema, normal capillary refill Neurologic/Psychiatric: alert, normal mood/affect, oriented x 3 Skin: normal color, warm/dry Progress/Results/Core Measures Results/Orders Lab Results Laboratory Tests Test 01/05/19 15:49 01/05/19 16:08 Range/Units Urine Color YELLOW Urine Clarity CLEAR Urine pH 6.5 5-9 Urine Specific [place] 1.010 L 1.016-1.022 Urine Protein NEGATIVE NEGATIVE Urine Glucose (UA) NEGATIVE NEGATIVE Urine Ketones NEGATIVE NEGATIVE Urine Nitrite NEGATIVE NEGATIVE Urine Bilirubin NEGATIVE NEGATIVE Urine Urobilinogen NORMAL NORMAL MG/DL Urine Leukocyte Esterase NEGATIVE NEGATIVE Urine RBC (Auto) NEGATIVE NEGATIVE Urine RBC NONE /HPF Urine WBC NONE /HPF Urine Squamous Epithelial Cells NONE /HPF Urine Crystals NONE /LPF Urine Bacteria NEGATIVE /HPF Urine Casts NONE /LPF Urine Mucus NEGATIVE /LPF Urine Culture Indicated NO White Blood Count 8.8 4.3-11.0 10^3/uL Red Blood Count 4.19 L 4.35-5.85 10^6/uL Hemoglobin 14.7 11.5-16.0 G/DL Hematocrit 42 35-52 % Mean Corpuscular Volume 101 H 80-99 FL Mean Corpuscular Hemoglobin 35 H 25-34 PG Mean Corpuscular Hemoglobin Concent 35 32-36 G/DL Red Cell Distribution Width 12.6 10.0-14.5 % Platelet Count 277 130-400 10^3/uL Mean Platelet Volume 8.9 7.4-10.4 FL Neutrophils (%) (Auto) 57 42-75 % Lymphocytes (%) (Auto) 36 12-44 % Monocytes (%) (Auto) 6 0-12 % Eosinophils (%) (Auto) 1 0-10 % Basophils (%) (Auto) 0 0-10 % Neutrophils # (Auto) 5.0 1.8-7.8 X 10^3 Lymphocytes # (Auto) 3.1 1.0-4.0 X 10^3 Monocytes # (Auto) 0.5 0.0-1.0 X 10^3 Eosinophils # (Auto) 0.1 0.0-0.3 10^3/uL Basophils # (Auto) 0.0 0.0-0.1 10^3/uL Sodium Level 139 135-145 MMOL/L Potassium Level 3.6 3.6-5.0 MMOL/L Chloride Level 104 98-107 MMOL/L Carbon Dioxide Level 24 21-32 MMOL/L Anion Gap 11 5-14 MMOL/L Blood Urea Nitrogen 9 7-18 MG/DL Creatinine 0.84 0.60-1.30 MG/DL Estimat Glomerular Filtration Rate > 60 BUN/Creatinine Ratio 11 Glucose Level 95 70-105 MG/DL Calcium Level 9.9 8.5-10.1 MG/DL Corrected Calcium 10.1 8.5-10.1 MG/DL Total Bilirubin 0.5 0.1-1.0 MG/DL Aspartate Amino Transf (AST/SGOT) 21 5-34 U/L Alanine Aminotransferase (ALT/SGPT) 15 0-55 U/L Alkaline Phosphatase 36 L 40-136 U/L Total Protein 6.5 6.4-8.2 GM/DL Albumin 3.8 3.2-4.5 GM/DL Amylase Level 95 25-125 U/L Lipase 34 8-78 U/L My Orders Orders - CIRILO VASQUEZ Ua Culture If Indicated (01/05/19 15:42) Comprehensive Metabolic Panel (01/05/19 15:59) Lipase (01/05/19 15:59) Amylase (01/05/19 15:59) Saline Lock/Iv-Start (01/05/19 15:59) Cbc With Automated Diff (01/05/19 15:59) Ns Iv 1000 Ml (Sodium Chloride 0.9%) (01/05/19 16:00) Ondansetron Injection (Zofran Injectio (01/05/19 16:00) Fentanyl Injection (Sublimaze Injection (01/05/19 16:00) Ct Abdomen/Pelvis W (01/05/19 16:27) Iohexol Injection (Omnipaque 350 Mg/Ml 1 (01/05/19 17:00) Received Contrast (Contrast Received) (01/05/19 17:00) Ondansetron Injection (Zofran Injectio (01/05/19 18:00) Medications Given in ED Vital Signs/I&O 01/05/19 01/05/19 15:42 18:32 Temp 97.7 Pulse 99 73 Resp 18 16 B/P (MAP) 102/48 (66) 123/63 (83) Pulse Ox 98 99 Blood Pressure Mean: 66 Progress Progress Note : Time: 18:24 Progress Note I have seen and evaluated the patient. Her pain has resolved after fentanyl and her nausea has improved. I have discussed her laboratory and imaging studies with her. She agrees with plan of care, plans for discharge, return precautions were given. Diagnostic Imaging Diagonstic Imaging: CT Plain Films/CT/US/NM/MRI: abdomen, pelvis Comments NAME: ANAIS BOWER [facility] REC#: [id number] PT STATUS: DEP ER : 1960 PHYSICIAN: CIRILO VASQUEZ ADMIT DATE: 01/05/19/ER Signed Date of Exam:01/05/19 CT ABDOMEN/PELVIS W PROCEDURE: CT abdomen and pelvis with contrast. TECHNIQUE: Multiple contiguous axial images were obtained through the abdomen and pelvis after administration of intravenous contrast. INDICATION: Lower abdominal pain. Incontinence of stool. COMPARISON: CT abdomen and pelvis performed on 09/13/2015. FINDINGS: LOWER THORAX: Mild basilar subsegmental atelectasis. Visualized heart is normal in size. LIVER: Unchanged subcentimeter focus of low attenuation in the superior right hepatic lobe posteriorly, likely representing a cyst (image 12 series 4). Liver is otherwise normal. GALLBLADDER: Normal CT appearance. BILE DUCTS: No biliary ductal dilatation. SPLEEN: Normal. PANCREAS: Normal. No pancreatic ductal dilatation. ADRENAL GLANDS: The right adrenal gland is normal. The left adrenal gland is not well seen, however, there do not appear to be any abnormalities in the region of the left adrenal gland. RIGHT KIDNEY AND URETER: No hydronephrosis. Normal renal enhancement. No suspicious mass. The visualized right ureter is normal. LEFT KIDNEY AND URETER: No hydronephrosis. Normal renal enhancement. No suspicious change in partially exophytic renal cyst projecting laterally off of the upper pole measuring 2 cm. A subcentimeter low-attenuation lesion just inferior to this in the upper pole is too small to characterize, but also likely represents a cyst. The visualized ureter is normal. STOMACH AND BOWEL: Stomach is collapsed. No bowel obstruction. No inflammatory changes. APPENDIX: Not visualized. No pericecal inflammation. PELVIC ORGANS/BLADDER: Bladder is normal. Uterus is absent. No pelvic mass. PERITONEUM AND RETROPERITONEUM: No pneumoperitoneum. No abdominal free fluid or loculated collection. LYMPH NODES: No lymphadenopathy. VESSELS: Abdominal aorta is nonaneurysmal. No venous thrombosis. ABDOMINAL WALL: Unremarkable. BONES: Multilevel degenerative changes involve the spine. No acute osseous abnormality. IMPRESSION: No acute abdominal or pelvic pathology. No findings to account for the patient's pain. Dictated by: Dictated on workstation # [id number] Dict: 01/05/19 1735 Trans: 01/05/192018 AS6 [id number] Interpreted by: AZUCENA CORTEZ DO Electronically signed by: AZUCENA CORTEZ DO 01/05/192018 Reviewed: Reviewed by Me Departure Impression Primary Impression: Nausea and vomiting Additional Impression: Abdominal pain Disposition: HOME, SELF-CARE Condition: Stable/Unchanged Departure-Patient Inst. Decision time for Depature: 18:24 Referrals: ELY DOBBINS MD (PCP/Family) Primary Care Physician Patient Instructions: Acute Abdomen (Belly Pain), Adult (DC), Viral Gastroenteritis, Adult (DC) Add. Discharge Instructions: Take medications as directed. You may use ibuprofen and Tylenol as directed by the bottle for pain relief. Follow-up with [facility] within 1 week for recheck. Return back to the emergency room for worsening symptoms or concerns as needed. All discharge instructions reviewed with patient and/or family. Voiced understanding. Scripts Ondansetron HCl (Zofran) 4 Mg Tab 4 MG PO Q4H PRN for NAUSEA/VOMITING-1ST LINE, #14 TAB Prov: CIRILO VASQUEZ 01/05/19 CIRILO VASQUEZ Jan 05, 2019 17:22
--- NOTE | 2019-01-05 17:52 | Diagnostic Imaging Report ---
PROCEDURE: CT abdomen and pelvis with contrast. TECHNIQUE: Multiple contiguous axial images were obtained through the abdomen and pelvis after administration of intravenous contrast. INDICATION: Lower abdominal pain. Incontinence of stool. COMPARISON: CT abdomen and pelvis performed on 09/13/2015. FINDINGS: LOWER THORAX: Mild basilar subsegmental atelectasis. Visualized heart is normal in size. LIVER: Unchanged subcentimeter focus of low attenuation in the superior right hepatic lobe posteriorly, likely representing a cyst (image 12 series 4). Liver is otherwise normal. GALLBLADDER: Normal CT appearance. BILE DUCTS: No biliary ductal dilatation. SPLEEN: Normal. PANCREAS: Normal. No pancreatic ductal dilatation. ADRENAL GLANDS: The right adrenal gland is normal. The left adrenal gland is not well seen, however, there do not appear to be any abnormalities in the region of the left adrenal gland. RIGHT KIDNEY AND URETER: No hydronephrosis. Normal renal enhancement. No suspicious mass. The visualized right ureter is normal. LEFT KIDNEY AND URETER: No hydronephrosis. Normal renal enhancement. No suspicious change in partially exophytic renal cyst projecting laterally off of the upper pole measuring 2 cm. A subcentimeter low-attenuation lesion just inferior to this in the upper pole is too small to characterize, but also likely represents a cyst. The visualized ureter is normal. STOMACH AND BOWEL: Stomach is collapsed. No bowel obstruction. No inflammatory changes. APPENDIX: Not visualized. No pericecal inflammation. PELVIC ORGANS/BLADDER: Bladder is normal. Uterus is absent. No pelvic mass. PERITONEUM AND RETROPERITONEUM: No pneumoperitoneum. No abdominal free fluid or loculated collection. LYMPH NODES: No lymphadenopathy. VESSELS: Abdominal aorta is nonaneurysmal. No venous thrombosis. ABDOMINAL WALL: Unremarkable. BONES: Multilevel degenerative changes involve the spine. No acute osseous abnormality. IMPRESSION: No acute abdominal or pelvic pathology. No findings to account for the patient's pain. Dictated by: Dictated on workstation # [id number]
[2019-01-05] MEDS ORDERED: ONDN4T PO (18:27)
[2019-01-05 18:32] VITALS: BP 123/63
== END 2019-01-05 18:32 | disposition home or self-care (01) ==
LOC: EDUNIT# 15:37 → ER 15:39
DX: R11.2 Nausea with vomiting, unspecified (principal); R10.32 Left lower quadrant pain; J44.9 Chronic obstructive pulmonary disease, unspecified; G35 Multiple sclerosis; E03.9 Hypothyroidism, unspecified; F17.210 Nicotine dependence, cigarettes, uncomplicated; Z88.2 Allergy status to sulfonamides; Z79.52 Long term (current) use of systemic steroids; Z90.710 Acquired absence of both cervix and uterus; Z98.890 Other specified postprocedural states
CPT/HCPCS: 36415; 74177; 80053; 81000; 82150; 83690; 85025

== ENCOUNTER 2019-05-01 19:09 | Emergency (ER) | payer MEDICARE, MEDICAID ==
[~2019-05-01] VITALS: Ht 177.8 cm; Wt 56.7 kg
[~2019-05-01 19:09] MED LIST changes: +ONDN4T PO
[2019-05-01] MEDS ORDERED: fentaNYL INJECTION 100 MCG/2 ML AMP IVP ONE (19:45)
--- NOTE | 2019-05-01 19:45 | ED Fall/Injury ---
General Chief Complaint: Trauma-Non Activation Stated Complaint: FALL,R SIDED LEG PAIN Nursing Triage Note: PT REPORTS WALKING BACKWARDS AND PULLING A BOX. PT STATES THAT SHE TRIPPED AND FELL ONTO CEMENT. PT REPORTS RIGHT HIP/PELVIC PAIN HAS GOTTEN WORSE SINCE YESTERDAY WHEN ACCIDENT HAPPENED AND IS HAVING HARD TIME WALKING NOW. PT SKYLA HITTING HEAD OR LOC. 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 She denies striking her head nor loss of consciousness. She said she is having some moderate pain at the time wanted try and control of herself before coming in to get it checked out. She took a [place] which but did not make her functional. She said she had a hard time walking because the pain in her right hip. Historically she had a bladder sling that apparently eroded the mesh into her right pelvis and had to have several surgeries to remove it. She had an anchor placed in her right hip and she says that's right where the pain is. She is not having any nausea, amnesia, dysuria, incontinence of bowel or bladder numbness or tingling. She is having localized pain in her right pelvis. She does not have a hip prostheses. She is on prednisone and mycophenolate/Plaquenil for lupus. She does not take blood thinner. She says she's taken [place] for pain for many years and takes about one tablet a day on average. Allergies and Home Medications Allergies Coded Allergies: Sulfa (Sulfonamide Antibiotics) (Verified Allergy, Unknown, 09/13/15) Home Medications Acyclovir 200 Mg Capsule, 200 MG PO DAILY, (Reported) Acyclovir 200 Mg Capsule, 200 MG PO DAILY Prescribed by: DONATO VELOZ on 10/13/16 1750 Carisoprodol 250 Mg Tablet, 250 MG PO TID Prescribed by: DONATO VELOZ on 10/13/16 175 Cyclobenzaprine HCl 10 Mg Tablet, 10 MG PO Q8H PRN for SPASMS Prescribed by: IRINA MOLINA on 06/23/17 2250 Hydrocodone/Acetaminophen 1 Each Tablet, 1 EACH PO Q6H PRN for PAIN Prescribed by: DONATO VELOZ on 09/13/15 2143 Hydroxychloroquine Sulfate 200 Mg Tablet, 200 MG PO DAILY, (Reported) Levothyroxine Sodium 88 Mcg Tablet, 88 MCG PO DAILY, (Reported) Ondansetron HCl 4 Mg Tab, 4 MG PO Q4H PRN for NAUSEA/VOMITING-1ST LINE Prescribed by: CIRILO VASQUEZ on 01/05/19 1827 Paroxetine HCl 20 Mg Tablet, 20 MG PO DAILY, (Reported) Prednisone 10 Mg Tab, 60 MG PO UD 60 mg daily for 2 days then 50 mg daily for 2 days then 40 mg daily for 2 days then 30 mg daily for 2 days then 20mg daily for 2 days then resume normal dose of 10mg daily Prescribed by: DONATO VELOZ on 12/18/18 1907 Patient Home Medication List Home Medication List Reviewed: Yes Review of Systems Review of Systems Constitutional: No chills, No diaphoresis Eyes: Denies Blindness Ears, Nose, Mouth, Throat: denies ear pain, denies nose pain Respiratory: No cough, No short of breath Cardiovascular: No chest pain, No edema Gastrointestinal: No abdominal pain, No nausea Genitourinary: No discharge, No dysuria Past Aynrkqq-Gdzimx-Ddvoua Hx Patient Social History Alcohol Use: Denies Use Recreational Drug Use: No Type Used: Cigarettes 2nd Hand Smoke Exposure: Yes Recent Foreign Travel: No Contact w/Someone Who Travel: No Recent Infectious Disease Expo: No Recent Hopitalizations: No Physical Abuse: No Sexual Abuse: No Mistreated: No Fear: No Immunizations Up To Date Tetanus Booster (TDap): Unknown Seasonal Allergies Seasonal Allergies: No Past Medical History Surgeries: Yes Bladder Surgery, Hysterectomy Respiratory: Yes COPD Cardiac: No 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 oz. 56.516746ak; 20.09 BMI Method:Stated General Appearance: WD/WN, mild distress HEENT: PERRL/EOMI, pharynx normal Neck: full range of motion, normal inspection Cardiovascular: normal peripheral pulses, regular rate, rhythm Respiratory: no respiratory distress, no accessory muscle use Gastrointestinal: normal bowel sounds, soft, tenderness (right lower quadrant, McBurney's point tenderness positive without rebound or other mesenteric signs.) Extremities: normal range of motion, non-tender (greater trochanter nontender but hips mildly tender to palpation and compression) Neurologic/Psychiatric: no motor/sensory deficits, alert, normal mood/affect, oriented x 3 Skin: normal color, warm/dry Darrel Coma Score Best Eye Response: (4) Open Spontaneously Best Verbal Response: (5) Oriented Best Motor Response: (6) Obeys Commands [place] Total: 15 Progress/Results/Core Measures Results/Orders Lab Results Laboratory Tests Test 05/01/19 19:34 05/01/19 20:29 Range/Units White Blood Count 10.9 4.3-11.0 10^3/uL Red Blood Count 4.26 L 4.35-5.85 10^6/uL Hemoglobin 14.5 11.5-16.0 G/DL Hematocrit 43 35-52 % Mean Corpuscular Volume 101 H 80-99 FL Mean Corpuscular Hemoglobin 34 25-34 PG Mean Corpuscular Hemoglobin Concent 34 32-36 G/DL Red Cell Distribution Width 12.9 10.0-14.5 % Platelet Count 274 130-400 10^3/uL Mean Platelet Volume 9.4 7.4-10.4 FL Neutrophils (%) (Auto) 55 42-75 % Lymphocytes (%) (Auto) 35 12-44 % Monocytes (%) (Auto) 8 0-12 % Eosinophils (%) (Auto) 2 0-10 % Basophils (%) (Auto) 1 0-10 % Neutrophils # (Auto) 6.0 1.8-7.8 X 10^3 Lymphocytes # (Auto) 3.9 1.0-4.0 X 10^3 Monocytes # (Auto) 0.8 0.0-1.0 X 10^3 Eosinophils # (Auto) 0.2 0.0-0.3 10^3/uL Basophils # (Auto) 0.1 0.0-0.1 10^3/uL Sodium Level 139 135-145 MMOL/L Potassium Level 3.7 3.6-5.0 MMOL/L Chloride Level 106 98-107 MMOL/L Carbon Dioxide Level 25 21-32 MMOL/L Anion Gap 8 5-14 MMOL/L Blood Urea Nitrogen 5 L 7-18 MG/DL Creatinine 0.89 0.60-1.30 MG/DL Estimat Glomerular Filtration Rate > 60 BUN/Creatinine Ratio 6 Glucose Level 92 70-105 MG/DL Calcium Level 9.2 8.5-10.1 MG/DL Corrected Calcium 9.3 8.5-10.1 MG/DL Total Bilirubin 0.3 0.1-1.0 MG/DL Aspartate Amino Transf (AST/SGOT) 21 5-34 U/L Alanine Aminotransferase (ALT/SGPT) 19 0-55 U/L Alkaline Phosphatase 41 40-136 U/L Total Protein 6.7 6.4-8.2 GM/DL Albumin 3.9 3.2-4.5 GM/DL Urine Color YELLOW Urine Clarity CLEAR Urine pH 7 5-9 Urine Specific [place] 1.005 L 1.016-1.022 Urine Protein NEGATIVE NEGATIVE Urine Glucose (UA) NEGATIVE NEGATIVE Urine Ketones NEGATIVE NEGATIVE Urine Nitrite NEGATIVE NEGATIVE Urine Bilirubin NEGATIVE NEGATIVE Urine Urobilinogen NORMAL NORMAL MG/DL Urine Leukocyte Esterase 1+ H NEGATIVE Urine RBC (Auto) NEGATIVE NEGATIVE Urine RBC NONE /HPF Urine WBC NONE /HPF Urine Squamous Epithelial Cells RARE /HPF Urine Crystals NONE /LPF Urine Bacteria TRACE /HPF Urine Casts NONE /LPF Urine Mucus NEGATIVE /LPF Urine Culture Indicated NO My Orders Orders - IRINA MOLINA Fentanyl Injection (Sublimaze Injection (05/01/19 19:45) Cbc With Automated Diff (05/01/19 19:33) Comprehensive Metabolic Panel (05/01/19 19:33) Ua Culture If Indicated (05/01/19 19:33) Ed Iv/Invasive Line Start (05/01/19 19:33) Pelvis With Right Hip 2-3views (05/01/19 19:33) Medications Given in ED Current Medications Medications Dose Ordered Sig/Jens Route Start Time Stop Time Status Last Admin Dose Admin Fentanyl Citrate 75 mcg ONCE ONCE IVP 05/01/19 19:45 05/01/19 19:46 DC 05/01/19 19:45 75 MCG Vital Signs/I&O 05/01/19 19:13 Temp 98.0 Pulse 88 Resp 12 B/P (MAP) 107/73 (84) Pulse Ox 98 Blood Pressure Mean: 84 Progress Progress Note #1: Time: 19:44 Progress Note IV fentanyl, labs and urine and x-rays of the hip. Progress Note #2: Time: 21:03 Progress Note The patient's pain was adequately treated with the fentanyl however she says is starting to wear off. She would prefer Toradol. She has plenty of [place] at home if the pain comes back until she can get back to her doctor. Diagnostic Imaging Diagonstic Imaging: Xray Plain Films/CT/US/NM/MRI: pelvis, hip (right) Comments No acute osseous abnormality. NAME: ANAIS BOWER [facility] REC#: [id number] PT STATUS: REG ER : 1960 PHYSICIAN: IRINA MOLINA MD ADMIT DATE: 05/01/19/ER Draft Date of Exam:05/01/19 PELVIS WITH RIGHT HIP 2-3VIEWS INDICATION: Fall and right hip pain. Time of exam: 8:00 PM Two views of the right hip show normal femoral acetabular alignment. Joint space is maintained. Femoral head and neck appear to be intact. No definite fractures are seen. Right-sided rami are intact. IMPRESSION: No acute bony abnormality is detected. Dictated on workstation # [id number] Dict: 05/01/192036 Trans: 05/01/192038 [facility] [id number] Interpreted by: MEÑO HAMMOND MD Electronically signed by: Reviewed: Reviewed by Me Departure Impression Primary Impression: Fall Qualified Codes: W19.XXXA - Unspecified fall, initial encounter Additional Impression: Acute right hip pain Disposition: 01 HOME, SELF-CARE Condition: Improved Departure-Patient Inst. Decision time for Depature: 21:03 Referrals: ELY DOBBINS MD (PCP/Family) Primary Care Physician Patient Instructions: Hip Pain (DC) Add. Discharge Instructions: Alternate ice and heat for the first couple days and then just heat. Use topical creams such as icy hot, Biofreeze or creams with capsaicin oil. Use Naprosyn 440 mg twice a day as needed for pain. Follow-up with primary care for reexamination. All discharge instructions reviewed with patient and/or family. Voiced understanding. IRINA MOLINA May 01, 2019 19:45
--- OUTSIDE RECORDS SUMMARY | 2019-05-01 19:49 | XMS REPORT | Continuity of Care Document ---
Author Organization Unknown Address Unknown Allergies Active Description Code Type Severity Reaction Onset Reported/Identified Relationship to Patient Clinical Status Yes Sulfa (Sulfonamide Antibiotics) [id number] Drug Allergy Unknown N/A 09/13/2015 Medications There is no data. Problems Date [...] 10/13/2016 DONATO VELOZ APRN Ot Z79.899 OTHER PLUG CUTTING MACHINE OPERATOR (CURRENT) DRUG THERAPY 10/14/2016 DONATO VELOZ APRN Ot F17.210 NICOTINE DEPENDENCE, CIGARETTES, UNCOMPL 10/14/2016 DONATO VELOZ APRN Ot G35 MULTIPLE SCLEROSIS 10/14/2016 DONATO VELOZ APRN Ot J44.9 CHRONIC OBSTRUCTIVE PULMONARY DISEASE, U 10/14/2016 DONATO VELOZ APRN Ot R51 HEADACHE 10/14/2016 DONATO VELOZ APRN Ot Z79.899 OTHER PLUG CUTTING MACHINE OPERATOR (CURRENT) DRUG THERAPY 10/18/2016 ROBERT CASAREZ MOLD YARD CRANE OPERATOR Ot M48.02 SPINAL STENOSIS, CERVICAL REGION 10/18/2016 ROBERT CASAREZ APRN Ot R41.82 ALTERED MENTAL STATUS, UNSPECIFIED 11/17/2016 ROBERT CASAREZ MOLD YARD CRANE OPERATOR Ot M48.02 SPINAL STENOSIS, CERVICAL REGION 11/17/2016 ROBERT CASAREZ MOLD YARD CRANE OPERATOR Ot R41.82 ALTERED MENTAL STATUS, UNSPECIFIED 12/14/2016 ROBERT CASAREZ MOLD YARD CRANE OPERATOR Ot M48.02 SPINAL STENOSIS, CERVICAL REGION 12/14/2016 ROBERT CASAREZ MOLD YARD CRANE OPERATOR Ot R41.82 ALTERED MENTAL STATUS, UNSPECIFIED 06/23/2017 IRINA MOLINA MD J Ot F17.210 NICOTINE DEPENDENCE, CIGARETTES, UNCOMPL 06/23/2017 FIDELINA MOLINA MDUS J Ot G35 MULTIPLE SCLEROSIS 06/23/2017 IRINA MOLINA MD J Ot L93.0 DISCOID LUPUS ERYTHEMATOSUS 06/23/2017 IRINA MOLINA MD J Ot R10.30 LOWER ABDOMINAL PAIN, UNSPECIFIED 06/23/2017 IRINA MOLINA MD J Ot R10.9 UNSPECIFIED ABDOMINAL PAIN 06/23/2017 IRINA MOLINA MD J Ot R39.11 HESITANCY OF MICTURITION 06/23/2017 IRINA MOLINA MD J Ot Z79.899 OTHER PLUG CUTTING MACHINE OPERATOR (CURRENT) DRUG THERAPY 06/25/2017 IRINA MOLINA MD Ot F17.210 NICOTINE DEPENDENCE, CIGARETTES, UNCOMPL 06/25/2017 IRINA MOLINA MD Ot G35 MULTIPLE SCLEROSIS 06/25/2017 IRINA MOLINA MD J Ot L93.0 DISCOID LUPUS ERYTHEMATOSUS 06/25/2017 IRINA MOLINA MD J Ot R10.30 LOWER ABDOMINAL PAIN, UNSPECIFIED 06/25/2017 IRINA MOLINA MD Ot R10.9 UNSPECIFIED ABDOMINAL PAIN 06/25/2017 IRINA MOLINA MD Ot R39.11 HESITANCY OF MICTURITION 06/25/2017 IRINA MOLINA MD J Ot Z79.899 OTHER RETIREMENT (CURRENT) DRUG THERAPY 08/08/2017 SUMAYA TOVAR, MADIE Costa Ot E03.9 HYPOTHYROIDISM, UNSPECIFIED 08/08/2017 MADIE SHELL MD Ot F17.210 NICOTINE DEPENDENCE, CIGARETTES, UNCOMPL 08/08/2017 MADIE SHELL MD Ot G89.29 OTHER CHRONIC PAIN 08/08/2017 MADIE SHELL MD Ot J44.9 CHRONIC OBSTRUCTIVE [...] OTHER NONCOMPLIANCE WITH MEDIC 09/26/2017 RANDA MORAN [employer]ARD CRANE OPERATOR Ot M25.572 PAIN IN LEFT ANKLE AND JOINTS OF LEFT FO 05/18/2018 RANDA MORAN M[employer] YARD CRANE OPERATOR Ot M25.572 PAIN IN LEFT ANKLE AND JOINTS OF LEFT FO 07/19/2018 ROBERT CASAREZ MOLD YARD CRANE OPERATOR Ot M48.02 SPINAL STENOSIS, CERVICAL REGION 07/19/2018 ROBERT CASAREZ MOLD YARD CRANE OPERATOR Ot R41.82 ALTERED MENTAL STATUS, UNSPECIFIED 07/19/2018 RANDA MORAN MOLD YARD CRANE OPERATOR Ot M25.572 PAIN IN LEFT ANKLE AND JOINTS OF LEFT FO 07/19/2018 ANDREI FRENCH MD Ot E03.9 HYPOTHYROIDISM, UNSPECIFIED 07/19/2018 ANDREI FRENCH MD Ot F41.9 ANXIETY DISORDER, UNSPECIFIED 07/19/2018 ANDREI FRENCH MD, Ot G35 MULTIPLE SCLEROSIS 07/19/2018 ANDREI FRENCH MD, Ot J44.9 CHRONIC OBSTRUCTIVE PULMONARY DISEASE, U 07/19/2018 ANDREI FRENCH MD Ot R07.89 OTHER CHEST PAIN 07/19/2018 ANDREI FRENCH MD Ot Z79.52 PLUG CUTTING MACHINE OPERATOR (CURRENT) USE OF SYSTEMIC STER 07/19/2018 ANDREI [...] PAIN 07/21/2018 ANDREI FRENCH MD Ot Z79.52 PLUG CUTTING MACHINE OPERATOR (CURRENT) USE OF SYSTEMIC STER 07/21/2018 ANDREI [...] ACQUIRED ABSENCE OF BOTH CERVIX AND UTER 12/18/2018 DONATO VELOZ APRN Ot E03.9 HYPOTHYROIDISM, UNSPECIFIED 12/18/2018 DONATO VELOZ APRN Ot G35 MULTIPLE SCLEROSIS 12/18/2018 DONATO VELOZ APRN Ot J44.9 CHRONIC OBSTRUCTIVE PULMONARY DISEASE, U 12/18/2018 DONATO VELOZ APRN Ot M32.9 SYSTEMIC LUPUS ERYTHEMATOSUS, UNSPECIFIE 12/18/2018 DONATO VELOZ APRN Ot M54.2 CERVICALGIA 12/18/2018 DONATO VELOZ APRN Ot N39.0 URINARY TRACT INFECTION, SITE NOT SPECIF 12/18/2018 DONATO VELOZ APRN Ot R53.1 WEAKNESS 12/18/2018 DONATO VELOZ APRN Ot Z79.52 RETIREMENT (CURRENT) USE OF SYSTEMIC STER 12/18/2018 DONATO VELOZ APRN Ot Z88.2 ALLERGY STATUS TO SULFONAMIDES STATUS 12/18/2018 DONATO VELOZ APRN Ot Z90.710 ACQUIRED ABSENCE OF BOTH CERVIX AND UTER 12/24/2018 DONATO VELOZ APRN Ot E03.9 HYPOTHYROIDISM, UNSPECIFIED 12/24/2018 DONATO VELOZ APRN Ot G35 MULTIPLE SCLEROSIS 12/24/2018 DONATO VELOZ APRN Ot J44.9 CHRONIC OBSTRUCTIVE PULMONARY DISEASE, U 12/24/2018 DONATO VELOZ APRN Ot M32.9 SYSTEMIC LUPUS ERYTHEMATOSUS, UNSPECIFIE 12/24/2018 DONATO VELOZ APRN Ot M54.2 CERVICALGIA 12/24/2018 DONATO VELOZ APRN Ot N39.0 URINARY TRACT INFECTION, SITE NOT SPECIF 12/24/2018 DONATO VELOZ APRN Ot R53.1 WEAKNESS 12/24/2018 DONATO VELOZ APRN Ot Z79.52 PLUG CUTTING MACHINE OPERATOR (CURRENT) USE OF SYSTEMIC STER 12/24/2018 DONATO VELOZ APRN Ot Z88.2 ALLERGY STATUS TO SULFONAMIDES STATUS 12/24/2018 DONATO VELOZ APRN Ot Z90.710 ACQUIRED ABSENCE OF BOTH CERVIX AND UTER 01/05/2019 CIRILO VASQUEZ Ot E03.9 HYPOTHYROIDISM, UNSPECIFIED 01/05/2019 BERNRICHA CHASEIS Ot F17.210 NICOTINE DEPENDENCE, CIGARETTES, UNCOMPL 01/05/2019 CIRILO VASQUEZ Ot G35 MULTIPLE SCLEROSIS 01/05/2019 CIRILO VASQUEZ Ot J44.9 CHRONIC OBSTRUCTIVE PULMONARY DISEASE, U 01/05/2019 CIRILO VASQUEZ Ot R10.32 LEFT LOWER QUADRANT PAIN 01/05/2019 CIRILO VASQUEZ Ot R11.2 NAUSEA WITH VOMITING, UNSPECIFIED 01/05/2019 CIRILO VASQUEZ Ot Z79.52 PLUG CUTTING MACHINE OPERATOR (CURRENT) USE OF SYSTEMIC STER 01/05/2019 CIRILO VASQUEZ Ot Z88.2 ALLERGY STATUS TO SULFONAMIDES STATUS 01/05/2019 RICHA VASQUEZIS Ot Z90.710 ACQUIRED ABSENCE OF BOTH CERVIX AND UTER 01/05/2019 RICHA VASQUEZIS Ot Z98.890 OTHER SPECIFIED POSTPROCEDURAL STATES 01/08/2019 CIRILO VASQUEZ Ot E03.9 HYPOTHYROIDISM, UNSPECIFIED 01/08/2019 RICHA VASQUEZIS Ot F17.210 NICOTINE DEPENDENCE, CIGARETTES, UNCOMPL 01/08/2019 RICHA VASQUEZIS Ot G35 MULTIPLE SCLEROSIS 01/08/2019 RICHA VASQUEZIS Ot J44.9 CHRONIC OBSTRUCTIVE PULMONARY DISEASE, U 01/08/2019 RICHA VASQUEZIS Ot R10.32 LEFT LOWER QUADRANT PAIN 01/08/2019 RICHA VASQUEZIS Ot R11.2 NAUSEA WITH VOMITING, UNSPECIFIED 01/08/2019 RICHA VASQUEZIS Ot Z79.52 RETIREMENT (CURRENT) USE OF SYSTEMIC STER 01/08/2019 RICHA VASQUEZIS Ot Z88.2 ALLERGY STATUS TO SULFONAMIDES STATUS 01/08/2019 RICHA VASQUEZIS Ot Z90.710 ACQUIRED ABSENCE OF BOTH CERVIX AND UTER 01/08/2019 RICHA VASQUEZIS Ot Z98.890 OTHER SPECIFIED POSTPROCEDURAL STATES Procedures There is no data. Results Test [...] Automated erythrocyte mean corpuscular hemoglobin concentration measurement (mass/volume) 34 g/dL 32-36 Automated erythrocyte distribution width ratio 12.4 % 10.0- 14.5 Automated blood platelet count (count/volume) 293 10*3/uL [...] Blood monocytes automated count (number/volume) 0.7 10*3 0.0- 1.0 Automated eosinophil count 0.2 10*3/uL 0.0-0.3 Automated [...] Serum or plasma aspartate aminotransferase measurement (enzymatic activity/volume) 24 U/L 5-34 Serum or plasma alanine aminotransferase measurement (enzymatic activity/volume) 17 U/L 0-55 Serum or plasma protein [...] plasma C reactive protein measurement (mass/volume) 0.34 mg/dL 0.00-0.50 Erythrocyte sedimentation rate by westergren method - 10/13/16 16:30 Erythrocyte sedimentation rate by westergren method 7 mm 0- 30 Complete urinalysis with reflex to culture - 10/13/16 17:03 Urine color determination YELLOW NRG Urine clarity determination CLEAR NRG Urine pH measurement by test strip 6 5-9 Specific gravity of urine by test strip 1.015 1.016-1.022 Urine protein assay by test strip, semi-quantitative [...] sediment leukocyte count by microscopy (number/high power field) [HPF] NRG Bacteria detection in urine sediment [...] gravity of urine by test strip 1.015 1.016-1.022 Urine protein assay by test strip, semi-quantitative [...] sediment leukocyte count by microscopy (number/high power field) NONE NRG Bacteria detection in urine sediment [...] Automated erythrocyte mean corpuscular hemoglobin concentration measurement (mass/volume) 34 g/dL 32-36 Automated erythrocyte distribution width ratio 12.3 % 10.0- 14.5 Automated blood platelet count (count/volume) 286 10*3/uL [...] Blood monocytes automated count (number/volume) 0.7 10*3 0.0- 1.0 Automated eosinophil count 0.2 10*3/uL 0.0-0.3 Automated [...] Serum or plasma aspartate aminotransferase measurement (enzymatic activity/volume) 18 U/L 5-34 Serum or plasma alanine aminotransferase measurement (enzymatic activity/volume) 14 U/L 0-55 Serum or plasma protein [...] Automated erythrocyte mean corpuscular hemoglobin concentration measurement (mass/volume) 34 g/dL 32-36 Automated erythrocyte distribution width ratio 12.6 % 10.0- 14.5 Automated blood platelet count (count/volume) 260 10*3/uL [...] Blood monocytes automated count (number/volume) 0.4 10*3 0.0- 1.0 Automated eosinophil count 0.0 10*3/uL 0.0-0.3 Automated [...] measurement in platelet poor plasma (mass/volume) - 07/19/18 19:20 Fibrin D-dimer FEU measurement in platelet [...] Serum or plasma aspartate aminotransferase measurement (enzymatic activity/volume) 18 U/L 5-34 Serum or plasma alanine aminotransferase measurement (enzymatic activity/volume) 17 U/L 0-55 Serum or plasma protein measurement (mass/volume) 6.9 g/dL 6.4-8.2 Serum or plasma albumin measurement (mass/volume) 4.1 g/dL 3.2-4.5 CALCIUM CORRECTED 9.5 mg/dL 8.5-10.1 Magnesium - 07/19/18 19:20 Magnesium 2.3 mg/dL 1.8-2.4 Serum or plasma troponin i.cardiac measurement (mass/volume) - 07/19/18 19:20 Serum or plasma troponin i.cardiac measurement (mass/volume) < ng/mL <0.30 Myoglobin, serum - 07/19/18 19:20 Myoglobin, serum 37.4 ng/mL 10.0-92.0 Lipase - 07/19/18 19:20 Lipase 37 U/L 8-78 Complete urinalysis with reflex to culture - 10/07/18 18:58 Urine color determination YELLOW NRG Urine clarity determination CLEAR NRG Urine pH measurement by test strip 6.5 5-9 Specific gravity of urine by test strip 1.015 1.016-1.022 Urine protein assay by test strip, semi-quantitative [...] sediment leukocyte count by microscopy (number/high power field) [HPF] NRG Bacteria detection in urine sediment [...] Automated erythrocyte mean corpuscular hemoglobin concentration measurement (mass/volume) 34 g/dL 32-36 Automated erythrocyte distribution width ratio 12.2 % 10.0- 14.5 Automated blood platelet count (count/volume) 248 10*3/uL [...] Blood monocytes automated count (number/volume) 0.5 10*3 0.0- 1.0 Automated eosinophil count 0.1 10*3/uL 0.0-0.3 Automated [...] Serum or plasma aspartate aminotransferase measurement (enzymatic activity/volume) 20 U/L 5-34 Serum or plasma alanine aminotransferase measurement (enzymatic activity/volume) 16 U/L 0-55 Serum or plasma protein measurement (mass/volume) 7.1 g/dL 6.4-8.2 Serum or plasma albumin measurement (mass/volume) 4.1 g/dL 3.2-4.5 CALCIUM CORRECTED 9.5 mg/dL 8.5-10.1 Magnesium - 10/07/18 19:05 Magnesium 2.2 mg/dL 1.8-2.4 Serum or plasma troponin i.cardiac measurement (mass/volume) - 10/07/18 19:05 Serum or plasma troponin i.cardiac measurement (mass/volume) < ng/mL <0.30 Myoglobin, serum - 10/07/18 19:05 Myoglobin, serum 48.3 ng/mL 10.0-92.0 Serum or plasma amylase measurement (enzymatic activity/volume) - 10/07/18 19:05 Serum or plasma amylase measurement (enzymatic activity/volume) 126 U/L 25-125 Serum or plasma lithium measurement (moles/volume) - 10/07/18 19:05 BNP level 10.4 pg/mL <100.0 Lipase - 10/07/18 19:05 Lipase 39 U/L 8-78 Complete blood count (CBC) with automated white blood cell (WBC) differential - 12/18/18 17:50 Blood leukocytes automated count (number/volume) 10.9 10*3/uL 4.3-11.0 Blood erythrocytes automated count (number/volume) 4.38 10*6/uL 4.35-5.85 Venous blood hemoglobin measurement (mass/volume) 15.3 g/dL 11.5-16.0 Blood hematocrit (volume fraction) 44 % 35-52 Automated erythrocyte mean corpuscular volume 101 [foz_us] 80-99 Automated erythrocyte mean corpuscular hemoglobin (mass per erythrocyte) 35 pg 25-34 Automated erythrocyte mean corpuscular hemoglobin concentration measurement (mass/volume) 35 g/dL 32-36 Automated erythrocyte distribution width ratio 12.6 % 10.0- 14.5 Automated blood platelet count (count/volume) 294 10*3/uL 130-400 Automated blood platelet mean volume measurement 9.5 [foz_us] 7.4-10.4 Automated blood neutrophils/100 leukocytes 57 % 42-75 Automated blood lymphocytes/100 leukocytes 36 % 12-44 Blood monocytes/100 leukocytes 6 % 0-12 Automated blood eosinophils/100 leukocytes 1 % 0-10 Automated blood basophils/100 leukocytes 1 % 0-10 Blood neutrophils automated count (number/volume) 6.2 10*3 1.8-7.8 Blood lymphocytes automated count (number/volume) 3.9 10*3 1.0-4.0 Blood monocytes automated count (number/volume) 0.6 10*3 0.0- 1.0 Automated eosinophil count 0.1 10*3/uL 0.0-0.3 Automated blood basophil count (count/volume) 0.1 10*3/uL 0.0-0.1 Comprehensive metabolic panel - 12/18/18 17:50 Serum or plasma sodium measurement (moles/volume) 138 mmol/L 135-145 Serum or plasma potassium measurement (moles/volume) 3.5 mmol/L 3.6-5.0 Serum or plasma chloride measurement (moles/volume) 105 mmol/L 98-107 Carbon dioxide 24 mmol/L 21-32 Serum or plasma anion gap determination (moles/volume) 9 mmol/L 5-14 Serum or plasma urea nitrogen measurement (mass/volume) 6 mg/dL 7-18 Serum or plasma creatinine measurement (mass/volume) 0.80 mg/dL 0.60-1.30 Serum or plasma urea nitrogen/creatinine mass ratio 8 NRG Serum or plasma creatinine measurement with calculation of estimated glomerular filtration rate > NRG Serum or plasma glucose measurement (mass/volume) 84 mg/dL 70-105 Serum or plasma calcium measurement (mass/volume) 9.1 mg/dL 8.5-10.1 Serum or plasma total bilirubin measurement (mass/volume) 0.2 mg/dL 0.1-1.0 Serum or plasma alkaline phosphatase measurement (enzymatic activity/volume) 38 U/L 40-136 Serum or plasma aspartate aminotransferase measurement (enzymatic activity/volume) 20 U/L 5-34 Serum or plasma alanine aminotransferase measurement (enzymatic activity/volume) 15 U/L 0-55 Serum or plasma protein measurement (mass/volume) 6.8 g/dL 6.4-8.2 Serum or plasma albumin measurement (mass/volume) 3.9 g/dL 3.2-4.5 CALCIUM CORRECTED 9.2 mg/dL 8.5-10.1 Erythrocyte sedimentation rate by westergren method - 12/18/18 17:50 Erythrocyte sedimentation rate by westergren method 6 mm 0- 30 Serum or plasma creatine kinase MB measurement (enzymatic activity/volume) - 12/18/18 17:50 Serum or plasma creatine kinase MB measurement (enzymatic activity/volume) 0.5 ng/mL <6.6 Serum or plasma troponin i.cardiac measurement (mass/volume) - 12/18/18 17:50 Serum or plasma troponin i.cardiac measurement (mass/volume) < ng/mL <0.028 Myoglobin, serum - 12/18/18 17:50 Myoglobin, serum 35.4 ng/mL 10.0-92.0 THYROID STIMULATING HORMONE - 12/18/18 17:50 THYROID STIMULATING HORMONE 2.14 u[iU]/mL 0.35-4.94 Serum or plasma C reactive protein measurement (mass/volume) - 12/18/18 17:50 Serum or plasma C reactive protein measurement (mass/volume) 0.14 mg/dL 0.00-0.50 Serum or plasma ethanol measurement (mass/volume) - 12/18/18 17:50 Serum or plasma ethanol measurement (mass/volume) < mg/dL <10 Influenza virus A and B antigen detection - 12/18/18 18:05 FLU RESULT NEGATIVE FOR INFLUENZA A AND B ANTIGENS BY IA NRG Complete urinalysis with reflex to culture - 12/18/18 18:16 Urine color determination YELLOW NRG Urine clarity determination CLEAR NRG Urine pH measurement by test strip 7 5-9 Specific gravity of urine by test strip 1.010 1.016-1.022 Urine protein assay by test strip, semi-quantitative [...] NORMAL Urine leukocyte esterase detection by dipstick 3+ NEGATIVE Automated urine sediment erythrocyte count by microscopy (number/high power field) NONE NRG Automated urine sediment leukocyte count by microscopy (number/high power field) [HPF] NRG Bacteria detection in urine sediment by light microscopy NEGATIVE NRG Squamous epithelial cells detection in urine sediment by light microscopy RARE NRG Crystals detection in urine sediment by light microscopy NONE NRG Casts detection in urine sediment by light microscopy NONE NRG Mucus detection in urine sediment by light microscopy NEGATIVE NRG Complete urinalysis with reflex to culture YES NRG Urine drug screening test - 12/18/18 18:16 Urine phencyclidine detection by screening method NEGATIVE NEGATIVE Urine benzodiazepines detection by screening method POSITIVE NEGATIVE Urine cocaine detection NEGATIVE NEGATIVE Urine [...] NEGATIVE NEGATIVE Urine propoxyphene detection NEGATIVE NEGATIVE Bacterial urine culture - 12/18/18 18:16 Bacterial urine culture NG NRG Complete urinalysis with reflex to culture - 01/05/19 15:49 Urine color determination YELLOW NRG Urine clarity determination CLEAR NRG Urine pH measurement by test strip 6.5 5-9 Specific gravity of urine by test strip 1.010 1.016-1.022 Urine protein assay by test strip, semi-quantitative [...] sediment leukocyte count by microscopy (number/high power field) NONE NRG Bacteria detection in urine sediment by light microscopy NEGATIVE NRG Squamous epithelial cells detection in urine sediment by light microscopy NONE NRG Crystals detection in urine sediment by light microscopy NONE NRG Casts detection in urine sediment by light microscopy NONE NRG Mucus detection in urine sediment by light microscopy NEGATIVE NRG Complete urinalysis with reflex to culture NO NRG Complete blood count (CBC) with automated white blood cell (WBC) differential - 01/05/19 16:08 Blood leukocytes automated count (number/volume) 8.8 10*3/uL 4.3-11.0 Blood erythrocytes automated count (number/volume) 4.19 10*6/uL 4.35-5.85 Venous blood hemoglobin measurement (mass/volume) 14.7 g/dL 11.5-16.0 Blood hematocrit (volume fraction) 42 % 35-52 Automated erythrocyte mean corpuscular volume 101 [foz_us] 80-99 Automated erythrocyte mean corpuscular hemoglobin (mass per erythrocyte) 35 pg 25-34 Automated erythrocyte mean corpuscular hemoglobin concentration measurement (mass/volume) 35 g/dL 32-36 Automated erythrocyte distribution width ratio 12.6 % 10.0- 14.5 Automated blood platelet count (count/volume) 277 10*3/uL 130-400 Automated blood platelet mean volume measurement 8.9 [foz_us] 7.4-10.4 Automated blood neutrophils/100 leukocytes 57 % 42-75 Automated blood lymphocytes/100 leukocytes 36 % 12-44 Blood monocytes/100 leukocytes 6 % 0-12 Automated blood eosinophils/100 leukocytes 1 % 0-10 Automated blood basophils/100 leukocytes 0 % 0-10 Blood neutrophils automated count (number/volume) 5.0 10*3 1.8-7.8 Blood lymphocytes automated count (number/volume) 3.1 10*3 1.0-4.0 Blood monocytes automated count (number/volume) 0.5 10*3 0.0- 1.0 Automated eosinophil count 0.1 10*3/uL 0.0-0.3 Automated blood basophil count (count/volume) 0.0 10*3/uL 0.0-0.1 Comprehensive metabolic panel - 01/05/19 16:08 Serum or plasma sodium measurement (moles/volume) 139 mmol/L 135-145 Serum or plasma potassium measurement (moles/volume) 3.6 mmol/L 3.6-5.0 Serum or plasma chloride measurement (moles/volume) 104 mmol/L 98-107 Carbon dioxide 24 mmol/L 21-32 Serum or plasma anion gap determination (moles/volume) 11 mmol/L 5-14 Serum or plasma urea nitrogen measurement (mass/volume) 9 mg/dL 7-18 Serum or plasma creatinine measurement (mass/volume) 0.84 mg/dL 0.60-1.30 Serum or plasma urea nitrogen/creatinine mass ratio 11 NRG Serum or plasma creatinine measurement with calculation of estimated glomerular filtration rate > NRG Serum or plasma glucose measurement (mass/volume) 95 mg/dL 70-105 Serum or plasma calcium measurement (mass/volume) 9.9 mg/dL 8.5-10.1 Serum or plasma total bilirubin measurement (mass/volume) 0.5 mg/dL 0.1-1.0 Serum or plasma alkaline phosphatase measurement (enzymatic activity/volume) 36 U/L 40-136 Serum or plasma aspartate aminotransferase measurement (enzymatic activity/volume) 21 U/L 5-34 Serum or plasma alanine aminotransferase measurement (enzymatic activity/volume) 15 U/L 0-55 Serum or plasma protein measurement (mass/volume) 6.5 g/dL 6.4-8.2 Serum or plasma albumin measurement (mass/volume) 3.8 g/dL 3.2-4.5 CALCIUM CORRECTED 10.1 mg/dL 8.5-10.1 Serum or plasma amylase measurement (enzymatic activity/volume) - 01/05/19 16:08 Serum or plasma amylase measurement (enzymatic activity/volume) 95 U/L 25-125 Lipase - 01/05/19 16:08 Lipase 34 U/L 8-78 Encounters ACCT No. Visit Date/Time Discharge Status Pt. Type Provider Facility Loc./Unit Complaint [id number] 01/05/2019 15:39:00 01/05/2019 18:32:00 DIS Emergency CIRILO VASQUEZ [facility] ER FREQUENT URINATION,LOWER ABD PAIN [id number] 12/18/2018 17:40:00 12/18/2018 19:30:00 DIS Emergency DONATO VELOZ APRN [facility] ER PT HAS MS, NECK PAIN, LOSING BLADDER FUNC. [id number] 10/07/2018 18:47:00 10/07/2018 20:30:00 DIS Emergency DONATO VELOZ APRN [facility] ER UPPER STOMACH/CHEST PAIN/SOB [id number] 07/19/2018 19:03:00 07/19/2018 22:32:00 DIS Emergency MANOLO TOVAR, ANDREI Ball [facility] ER CHEST PAIN/SHAKY/WEAKNESS/COUGH [id number] 09/01/2017 15:39:00 09/01/2017 23:59:59 CLS Outpatient RANDA MORAN APRN [facility] RAD PAIN LATERAL EDGE OF LEFT ANKLE [id number] 08/08/2017 13:35:00 08/08/2017 14:30:00 DIS Emergency SUMAYA TOVAR, MADIE Costa [facility] ER NO MEDS FOR 1 MO/LUPUS [id number] 06/23/2017 20:43:00 06/23/2017 23:00:00 DIS Emergency IRINA MOLINA MD [facility] ER ABD PAIN [id number] 01/27/2017 14:03:00 01/27/2017 23:59:59 CLS Preadmit ANAIS SETH DO [facility] REHAB CERVICAL DDD AND B ARM NUMBNESS [id number] 10/16/2016 13:07:00 10/16/2016 23:59:59 CLS Outpatient ROBERT CASAREZ [employer] OPERATOR [facility] RAD RU1.82 [id number] 10/13/2016 16:22:00 10/13/2016 18:00:00 DIS Emergency DONATO VELOZ [employer] OPERATOR [facility] ER HEAD PAIN [id number] 09/13/2015 19:33:00 09/13/2015 22:16:00 DIS Emergency DONATO VELOZ [employer] OPERATOR [facility] ER UNABLE TO URINATE [id number] 07/19/2018 22:06:00 Document Registration
[2019-05-01 19:51] LABS: BASOPHILS # (AUTO) 0.1 10^3/uL (0.0-0.1); BASOPHILS % (AUTO) 1 % (0-10); EOSINOPHILS # (AUTO) 0.2 10^3/uL (0.0-0.3); EOSINOPHILS % (AUTO) 2 % (0-10); HEMATOCRIT 43 % (35-52); HEMOGLOBIN 14.5 G/DL (11.5-16.0); LYMPHOCYTES # (AUTO) 3.9 X 10^3 (1.0-4.0); LYMPHOCYTES % (AUTO) 35 % (12-44); MEAN CORPUSCULAR HEMOGLOBIN 34 PG (25-34); MEAN CORPUSCULAR HGB CONC 34 G/DL (32-36); MEAN CORPUSCULAR VOLUME 101 FL (80-99); MEAN PLATELET VOLUME 9.4 FL (7.4-10.4); MONOCYTES # (AUTO) 0.8 X 10^3 (0.0-1.0); MONOCYTES % (AUTO) 8 % (0-12); NEUTROPHILS % (AUTO) 55 % (42-75); PLATELET COUNT 274 10^3/uL (130-400); RED CELL DISTRIBUTION WIDTH 12.9 % (10.0-14.5); WHITE BLOOD COUNT 10.9 10^3/uL (4.3-11.0)
[2019-05-01 20:03] LABS: ALANINE AMINOTRANSFERASE 19 U/L (0-55); ALKALINE PHOSPHATASE 41 U/L (40-136); BILIRUBIN,TOTAL 0.3 MG/DL (0.1-1.0); BUN/CREATININE RATIO 6; CALCIUM 9.2 MG/DL (8.5-10.1); CARBON DIOXIDE 25 MMOL/L (21-32); CHLORIDE 106 MMOL/L (98-107); CREATININE SERUM 0.89 MG/DL (0.60-1.30); GFR ESTIMATED > 60; GLUCOSE 92 MG/DL (70-105); POTASSIUM 3.7 MMOL/L (3.6-5.0); SODIUM 139 MMOL/L (135-145); TOTAL PROTEIN 6.7 GM/DL (6.4-8.2)
[2019-05-01 20:21] LABS: ALBUMIN 3.9 GM/DL (3.2-4.5)
[2019-05-01 20:39] LABS: BILIRUBIN,URINE NEGATIVE (NEGATIVE); CLARITY,URINE CLEAR; COLOR,URINE YELLOW; GLUCOSE, URINE (UA) NEGATIVE (NEGATIVE); KETONES,URINE NEGATIVE (NEGATIVE); LEUKOCYTE ESTERASE ,URINE 1+ (NEGATIVE); NITRITE,URINE NEGATIVE (NEGATIVE); PH,URINE 7 (5-9); PROTEIN,URINE NEGATIVE (NEGATIVE); UROBILINOGEN,URINE NORMAL (NORMAL)
--- NOTE | 2019-05-01 20:39 | Diagnostic Imaging Report ---
INDICATION: Fall and right hip pain. Time of exam: 8:00 PM Two views of the right hip show normal femoral acetabular alignment. Joint space is maintained. Femoral head and neck appear to be intact. No definite fractures are seen. Right-sided rami are intact. IMPRESSION: No acute bony abnormality is detected. Dictated by: Dictated on workstation # [id number]
[2019-05-01 20:47] LABS: BACTERIA,URINE TRACE /HPF; SQUAMOUS EPITHELIAL CELL,UR RARE /HPF
[2019-05-01] MEDS ORDERED: KETOROLAC 30 MG/ML VIAL IVP ONE (21:15)
[2019-05-01 21:23] VITALS: BP 107/73
== END 2019-05-01 21:24 | disposition home or self-care (01) ==
LOC: EDUNIT# 19:09 → ER 19:10
DX: M25.551 Pain in right hip (principal); M32.9 Systemic lupus erythematosus, unspecified; J44.9 Chronic obstructive pulmonary disease, unspecified; G35 Multiple sclerosis; E03.9 Hypothyroidism, unspecified; R40.2142 Coma scale, eyes open, spontaneous, at arrival to emergency department; R40.2252 Coma scale, best verbal response, oriented, at arrival to emergency department; R40.2362 Coma scale, best motor response, obeys commands, at arrival to emergency department; Z90.710 Acquired absence of both cervix and uterus; Z88.2 Allergy status to sulfonamides; Z77.22 Contact with and (suspected) exposure to environmental tobacco smoke (acute) (chronic); W01.0XXA Fall on same level from slipping, tripping and stumbling without subsequent striking against object, initial encounter; Y93.01 Activity, walking, marching and hiking
CPT/HCPCS: 36415; 80053; 81000; 85025

== ENCOUNTER 2019-05-20 18:50 | Emergency (ER) | payer MEDICARE, MEDICAID ==
[~2019-05-20] VITALS: Ht 177.8 cm; Wt 56.7 kg
[2019-05-20] MEDS ORDERED: KETOROLAC 30 MG/ML VIAL IVP ONE (19:15)
--- NOTE | 2019-05-20 19:17 | ED Abdominal Pain ---
General Chief Complaint: Abdominal/GI Problems Stated Complaint: PASSING KIDNEY STONE Nursing Triage Note: pt states she has pelvic pain. Pt states it feels like a kidney stone but she has also had 6 bladder surgeries. Pt rates pain 9/10. Started this morning and has gotten worse. Pt denies vomiting but is nauseated Sepsis Screen: No Definite Risk Source of Information: Patient Exam Limitations: No Limitations History of Present Illness Date Seen by Provider: May 20, 2019 Time Seen by Provider: 19:16 Initial Comments To ER with right sided lower abdominal pain that became severe this morning, this is been present off and on for quite some time. She was seen at urgent care today around 11 AM, given a shot of something for pain, she suspects that it was Toradol. UA, it didn't help, she comes here now with worsening pain. Chronic nausea and no different, no bowel changes. No fevers or chills. Timing/Duration: 1-2 Days Severity/Quality: Moderate Location: RLQ Radiation: No Radiation Activities at Onset: None Associated Symptoms: Denies Symptoms Allergies and Home Medications Allergies Coded Allergies: Sulfa (Sulfonamide Antibiotics) (Verified Allergy, Unknown, 09/13/15) Home Medications Acyclovir 200 Mg Capsule, 200 MG PO DAILY, (Reported) Acyclovir 200 Mg Capsule, 200 MG PO DAILY Prescribed by: DONATO VELOZ on 10/13/16 1750 Carisoprodol 250 Mg Tablet, 250 MG PO TID Prescribed by: DONATO VELOZ on 10/13/16 1750 Cyclobenzaprine HCl 10 Mg Tablet, 10 MG PO Q8H PRN for SPASMS Prescribed by: IRINA MOLINA on 06/23/17 2250 Hydrocodone/Acetaminophen 1 Each Tablet, 1 EACH PO Q6H PRN for PAIN Prescribed by: DONATO VELOZ on 09/13/15 2143 Hydroxychloroquine Sulfate 200 Mg Tablet, 200 MG PO DAILY, (Reported) Levothyroxine Sodium 88 Mcg Tablet, 88 MCG PO DAILY, (Reported) Ondansetron HCl 4 Mg Tab, 4 MG PO Q4H PRN for NAUSEA/VOMITING-1ST LINE Prescribed by: CIRILO VASQUEZ on 01/05/19 1827 Paroxetine HCl 20 Mg Tablet, 20 MG PO DAILY, (Reported) Prednisone 10 Mg Tab, 60 MG PO UD 60 mg daily for 2 days then 50 mg daily for 2 days then 40 mg daily for 2 days then 30 mg daily for 2 days then 20mg daily for 2 days then resume normal dose of 10mg daily Prescribed by: DONATO EVLOZ on 12/18/18 1827 Patient Home Medication List Home Medication List Reviewed: Yes Review of Systems Review of Systems Constitutional: see HPI EENTM: No Symptoms Reported Respiratory: No Symptoms Reported Cardiovascular: No Symptoms Reported Gastrointestinal: See HPI, Abdominal Pain, Nausea Genitourinary: No Symptoms Reported Musculoskeletal: no symptoms reported Skin: no symptoms reported Psychiatric/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: No Symptoms Reported Endocrine: No Symptoms Reported Hematologic/Lymphatic: No Symptoms Reported Past [id number] Hx Patient Social History Type Used: Cigarettes 2nd Hand Smoke Exposure: Yes Recent Foreign Travel: No Contact w/Someone Who Travel: No Recent Infectious Disease Expo: No Recent Hopitalizations: No Immunizations Up To Date Tetanus Booster (TDap): Unknown Seasonal Allergies Seasonal Allergies: No Past Medical History Surgeries: Yes Bladder Surgery, Hysterectomy Respiratory: Yes COPD Cardiac: No 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 oz. [id number]; 20.09 BMI Method:Stated General Appearance: WD/WN, no apparent distress Respiratory: no respiratory distress, no accessory muscle use Gastrointestinal: normal bowel sounds, soft, tenderness Extremities: normal range of motion, non-tender, normal inspection Neurologic/Psychiatric: alert, normal mood/affect, oriented x 3 Skin: normal color, warm/dry Progress/Results/Core Measures Results/Orders Lab Results Laboratory Tests Test 05/20/19 19:12 05/20/19 19:13 Range/Units Urine Color YELLOW Urine Clarity CLOUDY H Urine pH 6 5-9 Urine Specific [place] 1.010 L 1.016-1.022 Urine Protein 2+ H NEGATIVE Urine Glucose (UA) NEGATIVE NEGATIVE Urine Ketones NEGATIVE NEGATIVE Urine Nitrite NEGATIVE NEGATIVE Urine Bilirubin NEGATIVE NEGATIVE Urine Urobilinogen NORMAL NORMAL MG/DL Urine Leukocyte Esterase 3+ H NEGATIVE Urine RBC (Auto) 2+ H NEGATIVE Urine RBC RARE /HPF Urine WBC >100 H /HPF Urine Squamous Epithelial Cells 0-2 /HPF Urine Crystals NONE /LPF Urine Bacteria TRACE /HPF Urine Casts NONE /LPF Urine Mucus NEGATIVE /LPF Urine Culture Indicated YES White Blood Count 15.6 H 4.3-11.0 10^3/uL Red Blood Count 4.12 L 4.35-5.85 10^6/uL Hemoglobin 13.7 11.5-16.0 G/DL Hematocrit 42 35-52 % Mean Corpuscular Volume 101 H 80-99 FL Mean Corpuscular Hemoglobin 33 25-34 PG Mean Corpuscular Hemoglobin Concent 33 32-36 G/DL Red Cell Distribution Width 12.9 10.0-14.5 % Platelet Count 320 130-400 10^3/uL Mean Platelet Volume 8.9 7.4-10.4 FL Neutrophils (%) (Auto) 63 42-75 % Lymphocytes (%) (Auto) 27 12-44 % Monocytes (%) (Auto) 9 0-12 % Eosinophils (%) (Auto) 1 0-10 % Basophils (%) (Auto) 0 0-10 % Neutrophils # (Auto) 9.8 H 1.8-7.8 X 10^3 Lymphocytes # (Auto) 4.2 H 1.0-4.0 X 10^3 Monocytes # (Auto) 1.4 H 0.0-1.0 X 10^3 Eosinophils # (Auto) 0.2 0.0-0.3 10^3/uL Basophils # (Auto) 0.1 0.0-0.1 10^3/uL Neutrophils % (Manual) 58 % Lymphocytes % (Manual) 32 % Monocytes % (Manual) 4 % Eosinophils % (Manual) 3 % Basophils % (Manual) 0 % Band Neutrophils 0 % Reactive Lymphocytes 3 % Toxic Granulation 1+ Carbon Dioxide Level 25 21-32 MMOL/L Blood Urea Nitrogen 5 L 7-18 MG/DL Creatinine 0.77 0.60-1.30 MG/DL Estimat Glomerular Filtration Rate > 60 BUN/Creatinine Ratio 6 Glucose Level 84 70-105 MG/DL Calcium Level 9.0 8.5-10.1 MG/DL My Orders Orders - DONATO VELOZ FUNCTIONAL MANAGER Ua Culture If Indicated (05/20/19 19:03) Cbc With Automated Diff (05/20/19 19:03) Basic Metabolic Panel (05/20/19 19:03) Ed Iv/Invasive Line Start (05/20/19 19:03) Ct Abd/Pelvis Wo(Kidney Stone) (05/20/19 19:03) Ketorolac Injection (Toradol Injection) (05/20/19 19:15) Manual Differential (05/20/19 19:13) Urine Culture (05/20/19 19:12) Ceftriaxone For Iv Use (Rocephin For I (05/20/19 19:45) Fentanyl Injection (Sublimaze Injection (05/20/19 19:45) Medications Given in ED Current Medications Medications Dose Ordered Sig/Jens Route Start Time Stop Time Status Last Admin Dose Admin Ketorolac Tromethamine 15 mg ONCE ONCE IVP 05/20/19 19:15 05/20/19 19:16 DC 05/20/19 19:24 15 MG Vital Signs/I&O 05/20/19 18:54 Temp 98.2 B/P (MAP) O2 Delivery Room Air Departure Communication (Admissions) 2002- patient is upset one to leave. States that the Toradol hasn't helped her pain. IV has been removed, patient is upset and states that she is going to l eave. I did advise her that she has a urinary tract infection, she states "shes just got a nasty attitude and I'm leaving"referring to patient client care coordinator. Impression Primary Impression: Abdominal pain Disposition: AGAINST MEDICAL ADVICE Condition: Against Medical Advice Departure-Patient Inst. Referrals: ELY DOBBINS MD (PCP/Family) Primary Care Physician DONATO VELOZ APRN May 20, 2019 19:17
[2019-05-20 19:20] LABS: BILIRUBIN,URINE NEGATIVE (NEGATIVE); COLOR,URINE YELLOW; GLUCOSE, URINE (UA) NEGATIVE (NEGATIVE); KETONES,URINE NEGATIVE (NEGATIVE); LEUKOCYTE ESTERASE ,URINE 3+ (NEGATIVE); NITRITE,URINE NEGATIVE (NEGATIVE); PH,URINE 6 (5-9); PROTEIN,URINE 2+ (NEGATIVE); UROBILINOGEN,URINE NORMAL (NORMAL)
[2019-05-20 19:21] LABS: BASOPHILS # (AUTO) 0.1 10^3/uL (0.0-0.1); BASOPHILS % (AUTO) 0 % (0-10); EOSINOPHILS # (AUTO) 0.2 10^3/uL (0.0-0.3); EOSINOPHILS % (AUTO) 1 % (0-10); HEMATOCRIT 42 % (35-52); HEMOGLOBIN 13.7 G/DL (11.5-16.0); LYMPHOCYTES # (AUTO) 4.2 X 10^3 (1.0-4.0); LYMPHOCYTES % (AUTO) 27 % (12-44); MEAN CORPUSCULAR HEMOGLOBIN 33 PG (25-34); MEAN CORPUSCULAR HGB CONC 33 G/DL (32-36); MEAN CORPUSCULAR VOLUME 101 FL (80-99); MEAN PLATELET VOLUME 8.9 FL (7.4-10.4); MONOCYTES # (AUTO) 1.4 X 10^3 (0.0-1.0); MONOCYTES % (AUTO) 9 % (0-12); NEUTROPHILS # (AUTO) 9.8 X 10^3 (1.8-7.8); NEUTROPHILS % (AUTO) 63 % (42-75); PLATELET COUNT 320 10^3/uL (130-400); RED CELL DISTRIBUTION WIDTH 12.9 % (10.0-14.5); WHITE BLOOD COUNT 15.6 10^3/uL (4.3-11.0)
[2019-05-20 19:29] LABS: BACTERIA,URINE TRACE /HPF; CLARITY,URINE CLOUDY; RBC,URINE RARE /HPF; SQUAMOUS EPITHELIAL CELL,UR 0-2 /HPF; WBC,URINE >100 /HPF
[2019-05-20 19:39] LABS: BAND NEUTROPHILS 0 %; BASOPHILS % (MANUAL) 0 %; EOSINOPHILS % (MANUAL) 3 %; LYMPHOCYTES % (MANUAL) 32 %; MONOCYTES % (MANUAL) 4 %; NEUTROPHILS % (MANUAL) 58 %; REACTIVE LYMPHOCYTES 3 %
[2019-05-20 19:40] LABS: TOXIC GRANULATION/VACUOLAZATIO 1+
[2019-05-20 19:41] LABS: BUN/CREATININE RATIO 6; CARBON DIOXIDE 25 MMOL/L (21-32); CREATININE SERUM 0.77 MG/DL (0.60-1.30); GFR ESTIMATED > 60; GLUCOSE 84 MG/DL (70-105)
[2019-05-20] MEDS ORDERED: fentaNYL INJECTION 100 MCG/2 ML AMP IVP ONE (19:45)
[2019-05-20] MEDS ORDERED: cefTRIAXone FOR IV USE 1,000 MG in WATER (STERILE) FOR INJECTION 10 ML IV ONE (19:45)
[2019-05-20 20:05] VITALS: BP 0/0
--- NOTE | 2019-05-20 20:05 | NUR ---
Patient advises she does not wish to stay and refused to sign the AMA form. 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
[2019-05-20 20:10] LABS: CHLORIDE 102 MMOL/L (98-107); POTASSIUM 3.6 MMOL/L (3.6-5.0); SODIUM 136 MMOL/L (135-145)
== END 2019-05-20 20:08 | disposition left against medical advice (07) ==
LOC: EDUNIT# 18:50 → ER 18:51
DX: R10.31 Right lower quadrant pain (principal); J44.9 Chronic obstructive pulmonary disease, unspecified; G35 Multiple sclerosis; E03.9 Hypothyroidism, unspecified; M32.9 Systemic lupus erythematosus, unspecified; Z88.2 Allergy status to sulfonamides; Z77.22 Contact with and (suspected) exposure to environmental tobacco smoke (acute) (chronic); Z90.710 Acquired absence of both cervix and uterus
CPT/HCPCS: 36415; 80048; 81000; 85007; 85027; 87077; 87088; 87186; 96374

== ENCOUNTER 2019-06-05 14:06 | Emergency (ER) | payer MEDICARE, MEDICAID ==
[~2019-06-05] VITALS: Ht 177.8 cm; Wt 56.7 kg
--- OUTSIDE RECORDS SUMMARY | 2019-06-05 14:12 | XMS REPORT | Continuity of Care Document ---
Author Organization Unknown Address Unknown Phone Unavailable Allergies Active Description Code Type Severity Reaction Onset Reported/Identified Relationship to Patient Clinical Status Yes Sulfa (Sulfonamide Antibiotics) [id number] Drug Allergy Unknown N/A 09/13/2015 Medications There [...] 10/13/2016 DONATO VELOZ APRN Ot Z79.899 OTHER CASTING WHEEL OPERATOR (CURRENT) DRUG THERAPY 10/14/2016 DONATO VELOZ APRN Ot F17.210 NICOTINE DEPENDENCE, CIGARETTES, UNCOMPL 10/14/2016 DONATO VELOZ APRN Ot G35 MULTIPLE SCLEROSIS 10/14/2016 DONATO VELOZ APRN Ot J44.9 CHRONIC OBSTRUCTIVE PULMONARY DISEASE, U 10/14/2016 DONATO VELOZ APRN Ot R51 HEADACHE 10/14/2016 DONATO VELOZ APRN Ot Z79.899 OTHER CASTING WHEEL OPERATOR (CURRENT) DRUG THERAPY 10/18/2016 ROBERT CASAREZ APRN Ot M48.02 SPINAL STENOSIS, CERVICAL REGION 10/18/2016 ROBERT CASAREZ APRN Ot R41.82 ALTERED MENTAL STATUS, UNSPECIFIED 11/17/2016 HERMELINDO, ROBERT N SNATH HANDLE ASSEMBLER Ot M48.02 SPINAL STENOSIS, CERVICAL REGION 11/17/2016 ROBERT CASAREZ SNATH HANDLE ASSEMBLER Ot R41.82 ALTERED MENTAL STATUS, UNSPECIFIED 12/14/2016 ROBERT CASAREZ SNATH HANDLE ASSEMBLER Ot M48.02 SPINAL STENOSIS, CERVICAL REGION 12/14/2016 ROBERT CASAREZ SNATH HANDLE ASSEMBLER Ot R41.82 ALTERED MENTAL STATUS, UNSPECIFIED 06/23/2017 IRINA MOLINA MD J Ot F17.210 NICOTINE DEPENDENCE, CIGARETTES, UNCOMPL 06/23/2017 FIDELINA MOLINA MDUS J Ot G35 MULTIPLE SCLEROSIS 06/23/2017 FIDELINA MOLINA MDUS J Ot L93.0 DISCOID LUPUS ERYTHEMATOSUS 06/23/2017 IRINA MOLINA MD J Ot R10.30 LOWER ABDOMINAL PAIN, UNSPECIFIED 06/23/2017 IRINA MOLINA MD J Ot R10.9 UNSPECIFIED ABDOMINAL PAIN 06/23/2017 FIDELINA MOLINA MDUS J Ot R39.11 HESITANCY OF MICTURITION 06/23/2017 FIDELINA MOLINA MDUS J Ot Z79.899 OTHER SENIOR LIVING (CURRENT) DRUG THERAPY 06/25/2017 FIDELINA MOLINA MDUS J Ot F17.210 NICOTINE DEPENDENCE, CIGARETTES, UNCOMPL 06/25/2017 FIDELINA MOLINA MDUS J Ot G35 MULTIPLE SCLEROSIS 06/25/2017 FIDELINA MOLINA MDUS J Ot L93.0 DISCOID LUPUS ERYTHEMATOSUS 06/25/2017 FIDELINA MOLINA MDUS J Ot R10.30 LOWER ABDOMINAL PAIN, UNSPECIFIED 06/25/2017 FIDELINA MOLINA MDUS J Ot R10.9 UNSPECIFIED ABDOMINAL PAIN 06/25/2017 FIDELINA MOLINA MDUS J Ot R39.11 HESITANCY OF MICTURITION 06/25/2017 IRINA MOLINA MD J Ot Z79.899 OTHER CASTING WHEEL OPERATOR (CURRENT) DRUG THERAPY 08/08/2017 MADIE SHELL MD Ot E03.9 HYPOTHYROIDISM, UNSPECIFIED 08/08/2017 MADIE SHELL MD T Ot F17.210 NICOTINE DEPENDENCE, CIGARETTES, UNCOMPL 08/08/2017 MADIE SHELL MD Ot G89.29 OTHER CHRONIC PAIN 08/08/2017 MADIE SHELL MD Ot J44.9 CHRONIC OBSTRUCTIVE PULMONARY DISEASE, U 08/08/2017 MADIE SHELL MD Ot M32.9 SYSTEMIC LUPUS ERYTHEMATOSUS, UNSPECIFIE 08/08/2017 MADIE SHELL MD Ot R10.9 UNSPECIFIED ABDOMINAL PAIN 08/08/2017 SUMAYA TOVAR, MADIE Costa Ot Z90.710 ACQUIRED ABSENCE OF BOTH CERVIX [...] OTHER NONCOMPLIANCE WITH MEDIC 09/26/2017 RANDA MORAN SNATH HANDLE ASSEMBLER Ot M25.572 PAIN IN LEFT ANKLE AND JOINTS OF LEFT FO 05/18/2018 RANDA MORAN SNATH HANDLE ASSEMBLER Ot M25.572 PAIN IN LEFT ANKLE AND JOINTS OF LEFT FO 07/19/2018 ROBERT CASAREZ SNATH HANDLE ASSEMBLER Ot M48.02 SPINAL STENOSIS, CERVICAL REGION 07/19/2018 ROBERT CASAREZ SNATH HANDLE ASSEMBLER Ot R41.82 ALTERED MENTAL STATUS, UNSPECIFIED 07/19/2018 RANDA MORAN SNATH HANDLE ASSEMBLER Ot M25.572 PAIN IN LEFT ANKLE AND JOINTS OF LEFT FO 07/19/2018 ANDREI FRENCH MD Ot E03.9 HYPOTHYROIDISM, UNSPECIFIED 07/19/2018 ANDREI FRENCH MD Ot F41.9 ANXIETY DISORDER, UNSPECIFIED 07/19/2018 ANDREI FRENCH MD, Ot G35 MULTIPLE SCLEROSIS 07/19/2018 ANDREI FRENCH MD, Ot J44.9 CHRONIC OBSTRUCTIVE PULMONARY DISEASE, U 07/19/2018 ANDREI FRENCH MD Ot R07.89 OTHER CHEST PAIN 07/19/2018 ANDREI FRENCH MD Ot Z79.52 CASTING WHEEL OPERATOR (CURRENT) USE OF SYSTEMIC STER 07/19/2018 [...] PAIN 07/21/2018 ANDREI FRENCH MD Ot Z79.52 CASTING WHEEL OPERATOR (CURRENT) USE OF SYSTEMIC STER 07/21/2018 [...] OF OTHER DISEASES OF TH 10/07/2018 DONATO VEOLZ APRN Ot Z88.2 ALLERGY STATUS TO SULFONAMIDES [...] SYSTEMIC LUPUS ERYTHEMATOSUS, UNSPECIFIE 10/10/2018 DONATO VELOZ SNATH HANDLE ASSEMBLER Ot R10.13 EPIGASTRIC PAIN 10/10/2018 DONATO VELOZ [...] Ot E03.9 HYPOTHYROIDISM, UNSPECIFIED 12/18/2018 DONATO VELOZ SNATH HANDLE ASSEMBLER Ot G35 MULTIPLE SCLEROSIS 12/18/2018 DONATO VELOZ APRN Ot J44.9 CHRONIC OBSTRUCTIVE PULMONARY DISEASE, U 12/18/2018 DONATO VELOZ APRN Ot M32.9 SYSTEMIC LUPUS ERYTHEMATOSUS, UNSPECIFIE 12/18/2018 VELOZ, PETER J SNATH HANDLE ASSEMBLER Ot M54.2 CERVICALGIA 12/18/2018 DONATO VELOZ APRN Ot N39.0 URINARY TRACT INFECTION, SITE NOT SPECIF 12/18/2018 DONATO VELOZ APRN Ot R53.1 WEAKNESS 12/18/2018 DONATO VELOZ APRN Ot Z79.52 CASTING WHEEL OPERATOR (CURRENT) USE OF SYSTEMIC STER 12/18/2018 DONTAO VELOZ APRN Ot Z88.2 ALLERGY STATUS TO [...] WEAKNESS 12/24/2018 DONATO VELOZ APRN Ot Z79.52 CASTING WHEEL OPERATOR (CURRENT) USE OF SYSTEMIC STER 12/24/2018 DONATO VELOZ APRN Ot Z88.2 ALLERGY STATUS TO SULFONAMIDES STATUS 12/24/2018 DONATO VELOZ APRN Ot Z90.710 ACQUIRED ABSENCE OF BOTH CERVIX AND UTER 01/05/2019 CIRILO VASQUEZ Ot E03.9 HYPOTHYROIDISM, UNSPECIFIED 01/05/2019 BERNRICHA CHASEIS Ot F17.210 NICOTINE DEPENDENCE, CIGARETTES, UNCOMPL 01/05/2019 RICHA VASQUEZIS Ot G35 MULTIPLE SCLEROSIS 01/05/2019 CIRILO VASQUEZ Ot J44.9 CHRONIC OBSTRUCTIVE PULMONARY DISEASE, U 01/05/2019 CIRILO VASQUEZ Ot R10.32 LEFT LOWER QUADRANT PAIN 01/05/2019 BERNRENA CIRILO Ot R11.2 NAUSEA WITH VOMITING, UNSPECIFIED 01/05/2019 RICHA VASQUEZIS Ot Z79.52 CASTING WHEEL OPERATOR (CURRENT) USE OF SYSTEMIC STER 01/05/2019 RICHA VASQUEZIS Ot Z88.2 ALLERGY STATUS TO SULFONAMIDES STATUS 01/05/2019 RICHA VASQUEZIS Ot Z90.710 ACQUIRED ABSENCE OF BOTH CERVIX AND UTER 01/05/2019 RICHA VASQUEZIS Ot Z98.890 OTHER SPECIFIED POSTPROCEDURAL STATES 01/08/2019 RICHA VASQUEZIS Ot E03.9 HYPOTHYROIDISM, UNSPECIFIED 01/08/2019 RICHA VASQUEZIS Ot F17.210 NICOTINE DEPENDENCE, CIGARETTES, UNCOMPL 01/08/2019 CHRISTINA CIRILO Ot G35 MULTIPLE SCLEROSIS 01/08/2019 RICHA VASQUEZIS Ot J44.9 CHRONIC OBSTRUCTIVE PULMONARY DISEASE, U 01/08/2019 RICHA VASQUEZIS Ot R10.32 LEFT LOWER QUADRANT PAIN 01/08/2019 CHRISTINA CIRILO Ot R11.2 NAUSEA WITH VOMITING, UNSPECIFIED 01/08/2019 CHRISTINA CIRILO Ot Z79.52 CASTING WHEEL OPERATOR (CURRENT) USE OF SYSTEMIC STER 01/08/2019 RICHA VASQUEZIS Ot Z88.2 ALLERGY STATUS TO SULFONAMIDES STATUS 01/08/2019 CHRISTINA CIRILO Ot Z90.710 ACQUIRED ABSENCE OF BOTH CERVIX AND UTER 01/08/2019 RICHA VASQUEZIS Ot Z98.890 OTHER SPECIFIED POSTPROCEDURAL STATES 05/01/2019 IRINA MOLINA MD Ot E03.9 HYPOTHYROIDISM, UNSPECIFIED 05/01/2019 IRINA MOLINA MD Ot G35 MULTIPLE SCLEROSIS 05/01/2019 IRINA MOLINA MD Ot J44.9 CHRONIC OBSTRUCTIVE PULMONARY DISEASE, U 05/01/2019 IRINA MOLINA MD Ot M25.551 PAIN IN RIGHT HIP 05/01/2019 IRINA MOLINA MD Ot M32.9 SYSTEMIC LUPUS ERYTHEMATOSUS, UNSPECIFIE 05/01/2019 IRINA MOLINA MD Ot R40.2142 COMA SCALE, EYES OPEN, SPONTANEOUS, EMR 05/01/2019 IRINA MOLINA MD Ot R40.2252 COMA SCALE, BEST VERBAL RESPONSE, ORIENT 05/01/2019 IRINA MOLINA MD Ot R40.2362 COMA SCALE, BEST MOTOR RESPONSE, OBEYS C 05/01/2019 IRINA MOLINA MD Ot W01.0XXA FALL SAME LEV FROM SLIP/TRIP W/O STRIKE 05/01/2019 IRINA MOLINA MD Ot Y93.01 ACTIVITY, WALKING, MARCHING AND HIKING 05/01/2019 IRINA MOLINA MD Ot Z77.22 CNTCT W AND EXPSR TO ENVIRON TOBACCO SMO 05/01/2019 IRINA MOLINA MD Ot Z88.2 ALLERGY STATUS TO SULFONAMIDES STATUS 05/01/2019 IRINA MOLINA MD Ot Z90.710 ACQUIRED ABSENCE OF BOTH CERVIX AND UTER 05/03/2019 IRINA MOLINA MD Ot E03.9 HYPOTHYROIDISM, UNSPECIFIED 05/03/2019 IRINA MOLINA MD Ot G35 MULTIPLE SCLEROSIS 05/03/2019 IRINA MOLINA MD, Ot J44.9 CHRONIC OBSTRUCTIVE PULMONARY DISEASE, U 05/03/2019 IRINA MOLINA MD Ot M25.551 PAIN IN RIGHT HIP 05/03/2019 IRINA MOLINA MD Ot M32.9 SYSTEMIC LUPUS ERYTHEMATOSUS, UNSPECIFIE 05/03/2019 IRINA MOLINA MD Ot R40.2142 COMA SCALE, EYES OPEN, SPONTANEOUS, EMR 05/03/2019 IRINA MOLINA MD Ot R40.2252 COMA SCALE, BEST VERBAL RESPONSE, ORIENT 05/03/2019 IRINA MOLINA MD Ot R40.2362 COMA SCALE, BEST MOTOR RESPONSE, OBEYS C 05/03/2019 IRINA MOLINA MD Ot W01.0XXA FALL SAME LEV FROM SLIP/TRIP W/O STRIKE 05/03/2019 IRINA MOLINA MD Ot Y93.01 ACTIVITY, WALKING, MARCHING AND HIKING 05/03/2019 IRINA MOLINA MD Ot Z77.22 CNTCT W AND EXPSR TO ENVIRON TOBACCO SMO 05/03/2019 IRINA MOLINA MD Ot Z88.2 ALLERGY STATUS TO SULFONAMIDES STATUS 05/03/2019 IRINA MOLINA MD Ot Z90.710 ACQUIRED ABSENCE OF BOTH CERVIX AND UTER 05/20/2019 DONATO VELOZ APRN Ot E03.9 HYPOTHYROIDISM, UNSPECIFIED 05/20/2019 DONATO VELOZ APRN Ot G35 MULTIPLE SCLEROSIS 05/20/2019 DONATO VELOZ APRN Ot J44.9 CHRONIC OBSTRUCTIVE PULMONARY DISEASE, U 05/20/2019 DONATO VELOZ APRN Ot M32.9 SYSTEMIC LUPUS ERYTHEMATOSUS, UNSPECIFIE 05/20/2019 DONATO VELOZ APRN Ot R10.31 RIGHT LOWER QUADRANT PAIN 05/20/2019 DONATO VELOZ APRN Ot Z77.22 CNTCT W AND EXPSR TO ENVIRON TOBACCO SMO 05/20/2019 DONATO VELOZ APRN Ot Z88.2 ALLERGY STATUS TO SULFONAMIDES STATUS 05/20/2019 DONATO VELOZ APRN Ot Z90.710 ACQUIRED ABSENCE OF BOTH CERVIX AND UTER 05/26/2019 DONATO VELOZ APRN Ot E03.9 HYPOTHYROIDISM, UNSPECIFIED 05/26/2019 DONATO VELOZ APRN Ot G35 MULTIPLE SCLEROSIS 05/26/2019 DONATO VELOZ APRN Ot J44.9 CHRONIC OBSTRUCTIVE PULMONARY DISEASE, U 05/26/2019 DONATO VELOZ APRN Ot M32.9 SYSTEMIC LUPUS ERYTHEMATOSUS, UNSPECIFIE 05/26/2019 DONATO VELOZ APRN Ot R10.31 RIGHT LOWER QUADRANT PAIN 05/26/2019 DONATO VELOZ APRN Ot Z77.22 CNTCT W AND EXPSR TO ENVIRON TOBACCO SMO 05/26/2019 DONATO VELOZ APRN Ot Z88.2 ALLERGY STATUS TO SULFONAMIDES STATUS 05/26/2019 DONATO VELOZ APRN Ot Z90.710 ACQUIRED ABSENCE [...] - 01/05/19 16:08 Lipase 34 U/L 8-78 Complete blood count (CBC) with automated white blood cell (WBC) differential - 05/01/19 19:34 Blood leukocytes automated count (number/volume) 10.9 10*3/uL 4.3-11.0 Blood erythrocytes automated count (number/volume) 4.26 10*6/uL 4.35-5.85 Venous blood hemoglobin measurement (mass/volume) 14.5 g/dL 11.5-16.0 Blood hematocrit (volume fraction) 43 % 35-52 Automated erythrocyte mean corpuscular volume 101 [foz_us] 80-99 Automated erythrocyte mean corpuscular hemoglobin (mass per erythrocyte) 34 pg 25-34 Automated erythrocyte mean corpuscular hemoglobin concentration measurement (mass/volume) 34 g/dL 32-36 Automated erythrocyte distribution width ratio 12.9 % 10.0- 14.5 Automated blood platelet count (count/volume) 274 10*3/uL 130-400 Automated blood platelet mean volume measurement 9.4 [foz_us] 7.4-10.4 Automated blood neutrophils/100 leukocytes 55 % 42-75 Automated blood lymphocytes/100 leukocytes 35 % 12-44 Blood monocytes/100 leukocytes 8 % 0-12 Automated blood eosinophils/100 leukocytes 2 % 0-10 Automated blood basophils/100 leukocytes 1 % 0-10 Blood neutrophils automated count (number/volume) 6.0 10*3 1.8-7.8 Blood lymphocytes automated count (number/volume) 3.9 10*3 1.0-4.0 Blood monocytes automated count (number/volume) 0.8 10*3 0.0- 1.0 Automated eosinophil count 0.2 10*3/uL 0.0-0.3 Automated blood basophil count (count/volume) 0.1 10*3/uL 0.0-0.1 Comprehensive metabolic panel - 05/01/19 19:34 Serum or plasma sodium measurement (moles/volume) 139 mmol/L 135-145 Serum or plasma potassium measurement (moles/volume) 3.7 mmol/L 3.6-5.0 Serum or plasma chloride measurement (moles/volume) 106 mmol/L 98-107 Carbon dioxide 25 mmol/L 21-32 Serum or plasma anion gap determination (moles/volume) 8 mmol/L 5-14 Serum or plasma urea nitrogen measurement (mass/volume) 5 mg/dL 7-18 Serum or plasma creatinine measurement (mass/volume) 0.89 mg/dL 0.60-1.30 Serum or plasma urea nitrogen/creatinine mass ratio 6 NRG Serum or plasma creatinine measurement with calculation of estimated glomerular filtration rate > NRG Serum or plasma glucose measurement (mass/volume) 92 mg/dL 70-105 Serum or plasma calcium measurement (mass/volume) 9.2 mg/dL 8.5-10.1 Serum or plasma total bilirubin measurement (mass/volume) 0.3 mg/dL 0.1-1.0 Serum or plasma alkaline phosphatase measurement (enzymatic activity/volume) 41 U/L 40-136 Serum or plasma aspartate aminotransferase measurement (enzymatic activity/volume) 21 U/L 5-34 Serum or plasma alanine aminotransferase measurement (enzymatic activity/volume) 19 U/L 0-55 Serum or plasma protein measurement (mass/volume) 6.7 g/dL 6.4-8.2 Serum or plasma albumin measurement (mass/volume) 3.9 g/dL 3.2-4.5 CALCIUM CORRECTED 9.3 mg/dL 8.5-10.1 Complete urinalysis with reflex to culture - 05/01/19 20:29 Urine color determination YELLOW NRG Urine clarity determination CLEAR NRG Urine pH measurement by test strip 7 5-9 Specific gravity of urine by test strip 1.005 1.016-1.022 Urine protein assay by test strip, [...] detection in urine sediment by light microscopy TRACE NRG Squamous epithelial cells detection in urine sediment by light microscopy RARE NRG Crystals detection in urine sediment by light microscopy NONE NRG Casts detection in urine sediment by light microscopy NONE NRG Mucus detection in urine sediment by light microscopy NEGATIVE NRG Complete urinalysis with reflex to culture NO NRG Complete urinalysis with reflex to culture - 05/20/19 19:12 Urine color determination YELLOW NRG Urine clarity determination CLOUDY NRG Urine pH measurement by test strip 6 5-9 Specific gravity of urine by test strip 1.010 1.016-1.022 Urine protein assay by test strip, semi-quantitative 2+ NEGATIVE Urine glucose detection by automated test strip NEGATIVE NEGATIVE Erythrocytes detection in urine sediment by light microscopy 2+ NEGATIVE Urine ketones detection by automated test strip NEGATIVE NEGATIVE Urine nitrite detection by test strip NEGATIVE NEGATIVE Urine total bilirubin detection by test strip NEGATIVE NEGATIVE Urine urobilinogen measurement by automated test strip (mass/volume) NORMAL NORMAL Urine leukocyte esterase detection by dipstick 3+ NEGATIVE Automated urine sediment erythrocyte count by microscopy (number/high power field) RARE NRG Automated urine sediment leukocyte count by microscopy (number/high power field) > [HPF] NRG Bacteria detection in urine sediment by light microscopy TRACE NRG Squamous epithelial cells detection in urine sediment by light microscopy 0-2 NRG Crystals detection in urine sediment by light microscopy NONE NRG Casts detection in urine sediment by light microscopy NONE NRG Mucus detection in urine sediment by light microscopy NEGATIVE NRG Complete urinalysis with reflex to culture YES NRG Bacterial urine culture - 05/20/19 19:12 Bacterial urine culture [id number] NRG COLONY COUNT 60,000 cfu/ml NRG FTX;REPORTABLE SUSCEPTIBILITY REPORTED 05/22/19 11:10 NRG FREE TEXT ENTRY 2 ID REPORTED 05/21/19 16:05 NRG Dirithromycin susceptibility test by disk diffusion - 05/20/19 19:12 Gentamicin susceptibility test by minimum inhibitory concentration <= NRG Trimethoprim/sulfamethoxazole susceptibility test by minimum inhibitoryconcentration > NRG Levofloxacin susceptibility test by minimum inhibitory concentration > NRG Ampicillin susceptibility test by minimum inhibitory concentration > NRG Cefazolin susceptibility test by minimum inhibitory concentration 2 NRG Ceftriaxone susceptibility test by minimum inhibitory concentration <= NRG Ciprofloxacin susceptibility test by minimum inhibitory concentration > NRG Meropenem susceptibility test by minimum inhibitory concentration <= NRG Nitrofurantoin susceptibility test by minimum inhibitory concentration <= NRG Amoxicillin and clavulanate potassium susc BLANCA = NRG Complete blood count (CBC) with automated white blood cell (WBC) differential - 05/20/19 19:13 Blood leukocytes automated count (number/volume) 15.6 10*3/uL 4.3-11.0 Blood erythrocytes automated count (number/volume) 4.12 10*6/uL 4.35-5.85 Venous blood hemoglobin measurement (mass/volume) 13.7 g/dL 11.5-16.0 Blood hematocrit (volume fraction) 42 % 35-52 Automated erythrocyte mean corpuscular volume 101 [foz_us] 80-99 Automated erythrocyte mean corpuscular hemoglobin (mass per erythrocyte) 33 pg 25-34 Automated erythrocyte mean corpuscular hemoglobin concentration measurement (mass/volume) 33 g/dL 32-36 Automated erythrocyte distribution width ratio 12.9 % 10.0- 14.5 Automated blood platelet count (count/volume) 320 10*3/uL 130-400 Automated blood platelet mean volume measurement 8.9 [foz_us] 7.4-10.4 Automated blood neutrophils/100 leukocytes 63 % 42-75 Automated blood lymphocytes/100 leukocytes 27 % 12-44 Blood monocytes/100 leukocytes 9 % 0-12 Automated blood eosinophils/100 leukocytes 1 % 0-10 Automated blood basophils/100 leukocytes 0 % 0-10 Blood neutrophils automated count (number/volume) 9.8 10*3 1.8-7.8 Blood lymphocytes automated count (number/volume) 4.2 10*3 1.0-4.0 Blood monocytes automated count (number/volume) 1.4 10*3 0.0- 1.0 Automated eosinophil count 0.2 10*3/uL 0.0-0.3 Automated blood basophil count (count/volume) 0.1 10*3/uL 0.0-0.1 Manual absolute plasma cell count - 05/20/19 19:13 Blood monocytes/100 leukocytes 4 % NRG Manual blood segmented neutrophils/100 leukocytes 58 % NRG Blood band neutrophils/100 leukocytes 0 % NRG Manual blood lymphocytes/100 leukocytes 32 % NRG Manual eosinophils/100 leukocytes in nose 3 % NRG Manual blood basophils/100 leukocytes 0 % NRG Blood lymphocytes variant/100 leukocytes 3 % NRG Blood toxic granules detection by light microscopy 1+ NRG Whole blood basic metabolic panel - 05/20/19 19:13 Serum or plasma sodium measurement (moles/volume) 136 mmol/L 135-145 Serum or plasma potassium measurement (moles/volume) 3.6 mmol/L 3.6-5.0 Serum or plasma chloride measurement (moles/volume) 102 mmol/L 98-107 Carbon dioxide 25 mmol/L 21-32 Serum or plasma anion gap determination (moles/volume) 9 mmol/L 5-14 Serum or plasma urea nitrogen measurement (mass/volume) 5 mg/dL 7-18 Serum or plasma creatinine measurement (mass/volume) 0.77 mg/dL 0.60-1.30 Serum or plasma urea nitrogen/creatinine mass ratio 6 NRG Serum or plasma creatinine measurement with calculation of estimated glomerular filtration rate > NRG Serum or plasma glucose measurement (mass/volume) 84 mg/dL 70-105 Serum or plasma calcium measurement (mass/volume) 9.0 mg/dL 8.5-10.1 Encounters ACCT No. Visit Date/Time Discharge Status Pt. Type Provider Facility Loc./Unit Complaint [id number] 05/29/2019 12:50:00 05/29/2019 23:59:59 CLS Preadmit ELY DOBBINS MD [facility] RAD SCREENING [id number] 05/20/2019 18:51:00 05/20/2019 20:08:00 DIS Emergency DONATO VELOZ APRN [facility] ER PASSING KIDNEY STONE [id number] 05/08/2019 08:23:00 05/08/2019 23:59:59 CLS Preadmit ELY DOBBINS MD [facility] RAD PELVIC PAIN [id number] 05/01/2019 19:10:00 05/01/2019 21:24:00 DIS Emergency IRINA MOLINA MD [facility] ER FALL,R SIDED LEG PAIN [id number] 01/05/2019 15:39:00 01/05/2019 18:32:00 DIS Emergency CIRILO VASQUEZ [facility] ER FREQUENT URINATION,LOWER ABD PAIN [id number] 12/18/2018 17:40:00 12/18/2018 19:30:00 DIS Emergency DONATO VELOZ SNATH HANDLE ASSEMBLER [facility] ER PT HAS MS, NECK PAIN, LOSING BLADDER FUNC. [id number] 10/07/2018 18:47:00 10/07/2018 20:30:00 DIS Emergency DONATO VELOZ SNATH HANDLE ASSEMBLER [facility] ER UPPER STOMACH/CHEST PAIN/SOB [id number] 07/19/2018 19:03:00 07/19/2018 22:32:00 DIS Emergency ANDREI FRENCH MD [facility] ER CHEST PAIN/SHAKY/WEAKNESS/COUGH [id number] 09/01/2017 15:39:00 09/01/2017 23:59:59 CLS Outpatient RANDA MORAN SNATH HANDLE ASSEMBLER [facility] RAD PAIN LATERAL EDGE OF LEFT ANKLE [id number] 08/08/2017 13:35:00 08/08/2017 14:30:00 DIS Emergency MADIE SHELL MD [facility] ER NO MEDS FOR 1 MO/LUPUS [id number] 06/23/2017 20:43:00 06/23/2017 23:00:00 DIS Emergency IRINA MOLINA MD [facility] ER ABD PAIN [id number] 01/27/2017 14:03:00 01/27/2017 23:59:59 CLS Preadmit ANAIS SETH DO S [facility] REHAB CERVICAL DDD AND B ARM NUMBNESS [id number] 10/16/2016 13:07:00 10/16/2016 23:59:59 CLS Outpatient ROBERT CASAREZ SNATH HANDLE ASSEMBLER [facility] RAD RU1.82 [id number] 10/13/2016 16:22:00 10/13/2016 18:00:00 DIS Emergency DONATO VELOZ SNATH HANDLE ASSEMBLER [facility] ER HEAD PAIN [id number] 09/13/2015 19:33:00 09/13/2015 22:16:00 DIS Emergency DONATO VELOZ SNATH HANDLE ASSEMBLER [facility] ER UNABLE TO URINATE [id number] 07/19/2018 22:06:00 Document Registration
[2019-06-05 14:18] LABS: BILIRUBIN,URINE NEGATIVE (NEGATIVE); CLARITY,URINE CLEAR; COLOR,URINE YELLOW; GLUCOSE, URINE (UA) NEGATIVE (NEGATIVE); KETONES,URINE NEGATIVE (NEGATIVE); LEUKOCYTE ESTERASE ,URINE 3+ (NEGATIVE); NITRITE,URINE NEGATIVE (NEGATIVE); PH,URINE 7 (5-9); PROTEIN,URINE NEGATIVE (NEGATIVE); UROBILINOGEN,URINE NORMAL (NORMAL)
[2019-06-05 14:26] LABS: BACTERIA,URINE LARGE /HPF; RBC,URINE 0-2 /HPF; SQUAMOUS EPITHELIAL CELL,UR 0-2 /HPF; WBC,URINE 50-100 /HPF
[2019-06-05 14:27] LABS: BASOPHILS # (AUTO) 0.1 10^3/uL (0.0-0.1); BASOPHILS % (AUTO) 0 % (0-10); EOSINOPHILS # (AUTO) 0.1 10^3/uL (0.0-0.3); EOSINOPHILS % (AUTO) 1 % (0-10); HEMATOCRIT 44 % (35-52); HEMOGLOBIN 15.2 G/DL (11.5-16.0); LYMPHOCYTES # (AUTO) 3.4 X 10^3 (1.0-4.0); LYMPHOCYTES % (AUTO) 30 % (12-44); MEAN CORPUSCULAR HEMOGLOBIN 34 PG (25-34); MEAN CORPUSCULAR HGB CONC 34 G/DL (32-36); MEAN CORPUSCULAR VOLUME 100 FL (80-99); MONOCYTES # (AUTO) 0.8 X 10^3 (0.0-1.0); MONOCYTES % (AUTO) 7 % (0-12); NEUTROPHILS # (AUTO) 6.8 X 10^3 (1.8-7.8); NEUTROPHILS % (AUTO) 61 % (42-75); PLATELET COUNT 288 10^3/uL (130-400); WHITE BLOOD COUNT 11.2 10^3/uL (4.3-11.0)
[2019-06-05] MEDS ORDERED: KETOROLAC 30 MG/ML VIAL IVP ONE (14:30)
[2019-06-05] MEDS ORDERED: NS IV 1000 ML 1,000 ML IV SCH (14:30)
[2019-06-05 14:46] LABS: ALANINE AMINOTRANSFERASE 15 U/L (0-55); ALBUMIN 4.1 GM/DL (3.2-4.5); ALKALINE PHOSPHATASE 58 U/L (40-136); BILIRUBIN,TOTAL 0.4 MG/DL (0.1-1.0); BUN/CREATININE RATIO 6; CALCIUM 9.2 MG/DL (8.5-10.1); CARBON DIOXIDE 24 MMOL/L (21-32); CHLORIDE 105 MMOL/L (98-107); CREATININE SERUM 0.81 MG/DL (0.60-1.30); GFR ESTIMATED > 60; GLUCOSE 78 MG/DL (70-105); POTASSIUM 3.6 MMOL/L (3.6-5.0); SODIUM 138 MMOL/L (135-145); TOTAL PROTEIN 6.9 GM/DL (6.4-8.2)
--- NOTE | 2019-06-05 14:49 | ED GU-Female ---
General Chief Complaint: Abdominal/GI Problems Stated Complaint: R SIDE/GROIN PAIN Nursing Triage Note: has R sided groin pain, was recently diagnoses with a UTI Nursing Sepsis Screen: No Definite Risk Source: patient Exam Limitations: no limitations History of Present Illness Date Seen by Provider: Jun 05, 2019 Time Seen by Provider: 14:00 Initial Comments 58-year-old female who presents to emergency room with complaints of right flank pain that radiates down to her right groin. She reports that she had a recent diagnosis of urinary tract infection and has completed antibiotics and was feeling better but started feeling like her urinary tract infection was coming back today. Denies nausea and vomiting. Timing/Duration: this morning Radiation: right flank Associated Symptoms: dysuria, urinary frequency Allergies and Home Medications Allergies Coded Allergies: Sulfa (Sulfonamide Antibiotics) (Verified Allergy, Unknown, 09/13/15) Home Medications Acyclovir 200 Mg Capsule, 200 MG PO DAILY, (Reported) Acyclovir 200 Mg Capsule, 200 MG PO DAILY Prescribed by: DONATO VELOZ on 10/13/16 1750 Carisoprodol 250 Mg Tablet, 250 MG PO TID Prescribed by: DONATO VELOZ on 10/13/16 1750 Cefdinir 300 Mg Capsule, 300 MG PO BID Prescribed by: CIRILO VASQUEZ on 06/05/19 1501 Cyclobenzaprine HCl 10 Mg Tablet, 10 MG PO Q8H PRN for SPASMS Prescribed by: IRINA MOLINA on 06/23/17 2250 Hydrocodone/Acetaminophen 1 Each Tablet, 1 EACH PO Q6H PRN for PAIN Prescribed by: DONATO VELOZ on 09/13/15 2143 Hydroxychloroquine Sulfate 200 Mg Tablet, 200 MG PO DAILY, (Reported) Levothyroxine Sodium 88 Mcg Tablet, 88 MCG PO DAILY, (Reported) Ondansetron HCl 4 Mg Tab, 4 MG PO Q4H PRN for NAUSEA/VOMITING-1ST LINE Prescribed by: CIRILO VASQUEZ on 01/05/19 182 Paroxetine HCl 20 Mg Tablet, 20 MG PO DAILY, (Reported) Prednisone 10 Mg Tab, 60 MG PO UD 60 mg daily for 2 days then 50 mg daily for 2 days then 40 mg daily for 2 days then 30 mg daily for 2 days then 20mg daily for 2 days then resume normal dose of 10mg daily Prescribed by: DONATO VELOZ on 12/18/18 1907 Patient Home Medication List Home Medication List Reviewed: Yes Review of Systems Review of Systems Constitutional: see HPI; No chills, No fever Genitourinary: see HPI, frequency, flank pain All Other Systemes Reviewed Negative Unless Noted: Yes Past Vjunnka-Zxiepo-Wmswle Hx Past Med/Social Hx: Reviewed Nursing Past Med/Soc Hx Patient Social History Alcohol Use: Denies Use Recreational Drug Use: No Type Used: Cigarettes 2nd Hand Smoke Exposure: Yes Recent Foreign Travel: No Contact w/Someone Who Travel: No Recent Infectious Disease Expo: No Recent Hopitalizations: No Physical Abuse: No Sexual Abuse: No Mistreated: No Fear: No Immunizations Up To Date Tetanus Booster (TDap): Unknown Seasonal Allergies Seasonal Allergies: No Past Medical History Surgeries: Yes Bladder Surgery, Hysterectomy Respiratory: Yes COPD Cardiac: No 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 oz. [id number]; 20.09 BMI Method:Stated General Appearance: WD/WN, no apparent distress Cardiovascular: normal peripheral pulses, regular rate, rhythm, no edema, no gallop, no JVD, no murmur Respiratory: chest non-tender, lungs clear, normal breath sounds, no respiratory distress, no accessory muscle use, respiratory distress Gastrointestinal: normal bowel sounds, non tender, soft, no organomegaly, no pulsatile mass Extremities: normal capillary refill Neurologic/Psychiatric: alert, normal mood/affect, oriented x 3 Skin: normal color, warm/dry Progress/Results/Core Measures Suspected Sepsis Recent Fever Within 48 Hours: No Infection Criteria Present: Suspected New Infection New/Unexplained Altered Menta: No Sepsis Screen: No Definite Risk SIRS Temperature:98.1 Pulse: 95 Respiratory Rate: 18 Laboratory Tests 06/05/19 14:21: White Blood Count 11.2H Blood Pressure 122 /52 Mean: 75 Laboratory Tests 06/05/19 14:21: Creatinine 0.81, Platelet Count 288, Total Bilirubin 0.4 Results/Orders Lab Results Laboratory Tests Test 06/05/19 14:11 06/05/19 14:21 Range/Units Urine Color YELLOW Urine Clarity CLEAR Urine pH 7 5-9 Urine Specific [place] 1.005 L 1.016-1.022 Urine Protein NEGATIVE NEGATIVE Urine Glucose (UA) NEGATIVE NEGATIVE Urine Ketones NEGATIVE NEGATIVE Urine Nitrite NEGATIVE NEGATIVE Urine Bilirubin NEGATIVE NEGATIVE Urine Urobilinogen NORMAL NORMAL MG/DL Urine Leukocyte Esterase 3+ H NEGATIVE Urine RBC (Auto) 1+ H NEGATIVE Urine RBC 0-2 /HPF Urine WBC 50-100 H /HPF Urine Squamous Epithelial Cells 0-2 /HPF Urine Crystals NONE /LPF Urine Bacteria LARGE H /HPF Urine Casts NONE /LPF Urine Mucus NEGATIVE /LPF Urine Culture Indicated YES White Blood Count 11.2 H 4.3-11.0 10^3/uL Red Blood Count 4.45 4.35-5.85 10^6/uL Hemoglobin 15.2 11.5-16.0 G/DL Hematocrit 44 35-52 % Mean Corpuscular Volume 100 H 80-99 FL Mean Corpuscular Hemoglobin 34 25-34 PG Mean Corpuscular Hemoglobin Concent 34 32-36 G/DL Red Cell Distribution Width 13.0 10.0-14.5 % Platelet Count 288 130-400 10^3/uL Mean Platelet Volume 9.0 7.4-10.4 FL Neutrophils (%) (Auto) 61 42-75 % Lymphocytes (%) (Auto) 30 12-44 % Monocytes (%) (Auto) 7 0-12 % Eosinophils (%) (Auto) 1 0-10 % Basophils (%) (Auto) 0 0-10 % Neutrophils # (Auto) 6.8 1.8-7.8 X 10^3 Lymphocytes # (Auto) 3.4 1.0-4.0 X 10^3 Monocytes # (Auto) 0.8 0.0-1.0 X 10^3 Eosinophils # (Auto) 0.1 0.0-0.3 10^3/uL Basophils # (Auto) 0.1 0.0-0.1 10^3/uL Sodium Level 138 135-145 MMOL/L Potassium Level 3.6 3.6-5.0 MMOL/L Chloride Level 105 98-107 MMOL/L Carbon Dioxide Level 24 21-32 MMOL/L Anion Gap 9 5-14 MMOL/L Blood Urea Nitrogen 5 L 7-18 MG/DL Creatinine 0.81 0.60-1.30 MG/DL Estimat Glomerular Filtration Rate > 60 BUN/Creatinine Ratio 6 Glucose Level 78 70-105 MG/DL Calcium Level 9.2 8.5-10.1 MG/DL Corrected Calcium 9.1 8.5-10.1 MG/DL Total Bilirubin 0.4 0.1-1.0 MG/DL Aspartate Amino Transf (AST/SGOT) 21 5-34 U/L Alanine Aminotransferase (ALT/SGPT) 15 0-55 U/L Alkaline Phosphatase 58 40-136 U/L Total Protein 6.9 6.4-8.2 GM/DL Albumin 4.1 3.2-4.5 GM/DL My Orders Orders - CIRILO VASQUEZ Ua Culture If Indicated (06/05/19 14:12) Comprehensive Metabolic Panel (06/05/19 14:17) Ed Iv/Invasive Line Start (06/05/19 14:17) Cbc With Automated Diff (06/05/19 14:17) Ns Iv 1000 Ml (Sodium Chloride 0.9%) (06/05/19 14:30) Ketorolac Injection (Toradol Injection) (06/05/19 14:30) Urine Culture (06/05/19 14:11) Ceftriaxone For Iv Use (Rocephin For I (06/05/19 15:00) Medications Given in ED Current Medications Medications Dose Ordered Sig/Jens Route Start Time Stop Time Status Last Admin Dose Admin Ceftriaxone Sodium 1000 mg/ Sterile Water 10 ml @ 200 mls/hr ONCE ONCE IV 06/05/19 15:00 06/05/19 15:02 DC 06/05/19 14:55 200 MLS/HR Ketorolac Tromethamine 30 mg ONCE ONCE IVP 06/05/19 14:30 06/05/19 14:31 DC 06/05/19 14:26 30 MG Vital Signs/I&O 06/05/19 06/05/19 14:20 16:11 Temp 98.1 98.6 Pulse 95 86 Resp 18 18 B/P (MAP) 122/52 (75) 108/85 (93) Pulse Ox 98 O2 Delivery Room Air Capillary Refill : Less Than 3 Seconds Blood Pressure Mean: 75 Progress Note : Time: 14:55 Progress Note I have seen and evaluated the patient. I have informed her of her laboratory findings. Her pain has improved after Toradol. She did receive 1 g of Rocephin in the ER. Antibiotics outpatient. She agrees with plan of care, plans for discharge, return precautions were given. Departure Impression Primary Impression: Urinary tract infection Disposition: HOME, SELF-CARE Condition: Stable/Unchanged Departure-Patient Inst. Decision time for Depature: 14:55 Referrals: ELY DOBBINS MD (PCP/Family) Primary Care Physician Patient Instructions: Urinary Tract Infection, Adult (DC) Add. Discharge Instructions: Take antibiotics as directed. Drink plenty of fluids to stay hydrated and help flush out your urinary tract infection. Follow-up with your primary care provider within 1 week for recheck. Return back to the emergency room for worsening symptoms or concerns as needed. All discharge instructions reviewed with patient and/or family. Voiced understanding. Scripts Cefdinir (Cefdinir) 300 Mg Capsule 300 MG PO BID for 7 Days, #14 CAP 0 Refills Prov: CIRILO VASQUEZ 06/05/19 CIRILO VASQUEZ Jun 05, 2019 14:49
--- NOTE | 2019-06-05 14:57 | NUR ---
pt states pain had decreased, is resting quietly with eyes closed, pt easy to arouse, warm blanket given per request, pt shows no s/s of distress, pt has no other needs or c/o at this time, vs assessed and stable, will continue to monitor
[2019-06-05] MEDS ORDERED: cefTRIAXone FOR IV USE 1,000 MG in WATER (STERILE) FOR INJECTION 10 ML IV ONE (15:00)
[2019-06-05] MEDS ORDERED: CEFD300C3 PO (15:01)
--- NOTE | 2019-06-05 15:50 | NUR ---
pt resting quietly in ED bed with no s/s of distress, pt easy to arouse, pt denies any needs or c/o at this time, vs assessed and stable, will continue to monitor
[2019-06-05 16:11] VITALS: BP 108/85
== END 2019-06-05 16:12 | disposition home or self-care (01) ==
LOC: EDUNIT# 14:06 → ER 14:07
DX: N39.0 Urinary tract infection, site not specified (principal); J44.9 Chronic obstructive pulmonary disease, unspecified; G35 Multiple sclerosis; E03.9 Hypothyroidism, unspecified; Z87.39 Personal history of other diseases of the musculoskeletal system and connective tissue; Z88.2 Allergy status to sulfonamides; Z79.52 Long term (current) use of systemic steroids; Z77.22 Contact with and (suspected) exposure to environmental tobacco smoke (acute) (chronic); Z90.710 Acquired absence of both cervix and uterus
CPT/HCPCS: 36415; 80053; 81000; 85025; 87077; 87088; 87186; 96374; 96375

== ENCOUNTER 2019-09-03 08:53 | Emergency (ER) | payer MEDICARE, MEDICAID ==
[~2019-09-03] VITALS: Ht 175.2 cm; Wt 61.3 kg
[~2019-09-03 08:53] MED LIST changes: +CEFD300C3 PO
--- NOTE | 2019-09-03 09:44 | ED Abdominal Pain ---
General Chief Complaint: Abdominal/GI Problems Stated Complaint: MS FLARE;MUSCLES TENSE;ABD PAIN Nursing Triage Note: Pt ambulatory to rm 5. Pt c/o abdominal pain and painful urination. Pt reports being in an MS flare. Sepsis Screen: No Definite Risk Source of Information: Patient Exam Limitations: No Limitations History of Present Illness Date Seen by Provider: Sep 03, 2019 Time Seen by Provider: 09:42 Initial Comments This 58-year-old white female presents with a flare of her MS. She is under the care of Dr. Dobbins. Characteristically the patient requires a increase in her steroids temporarily. The patient reports that she's had abdominal pain and dysuria. Allergies and Home Medications Allergies Coded Allergies: Sulfa (Sulfonamide Antibiotics) (Verified Allergy, Unknown, 09/13/15) Home Medications Acyclovir 200 Mg Capsule, 200 MG PO DAILY, (Reported) Acyclovir 200 Mg Capsule, 200 MG PO DAILY Prescribed by: DONATO VELOZ on 10/13/16 1750 Carisoprodol 250 Mg Tablet, 250 MG PO TID Prescribed by: DONATO VELOZ on 10/13/16 1750 Cefdinir 300 Mg Capsule, 300 MG PO BID Prescribed by: CIRILO VASQUEZ on 06/05/19 1501 Cyclobenzaprine HCl 10 Mg Tablet, 10 MG PO Q8H PRN for SPASMS Prescribed by: IRINA MOLINA on 06/23/17 2250 Hydrocodone/Acetaminophen 1 Each Tablet, 1 EACH PO Q6H PRN for PAIN Prescribed by: ODNATO VELOZ on 09/13/15 2143 Hydroxychloroquine Sulfate 200 Mg Tablet, 200 MG PO DAILY, (Reported) Levothyroxine Sodium 88 Mcg Tablet, 88 MCG PO DAILY, (Reported) Ondansetron HCl 4 Mg Tab, 4 MG PO Q4H PRN for NAUSEA/VOMITING-1ST LINE Prescribed by: CIRILO VASQUEZ on 01/05/19 1827 Paroxetine HCl 20 Mg Tablet, 20 MG PO DAILY, (Reported) Prednisone 10 Mg Tab, 60 MG PO UD 60 mg daily for 2 days then 50 mg daily for 2 days then 40 mg daily for 2 days then 30 mg daily for 2 days then 20mg daily for 2 days then resume normal dose of 10mg daily Prescribed by: DONATO VELOZ on 12/18/18 1907 Patient Home Medication List Home Medication List Reviewed: Yes Review of Systems Review of Systems Constitutional: No chills, No fever EENTM: No Blurred Vision Respiratory: Denies Cough Gastrointestinal: Abdominal Pain Genitourinary: Frequency, Urgency Musculoskeletal: No back pain Skin: No change in color, No rash Psychiatric/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: Other (MS) Endocrine: No Symptoms Reported Hematologic/Lymphatic: No Symptoms Reported Past Rskemib-Zlyrgy-Nrmott Hx Past Med/Social Hx: Reviewed Nursing Past Med/Soc Hx Patient Social History Alcohol Use: Denies Use Recreational Drug Use: No Smoking Status: Current Everyday Smoker Type Used: Cigarettes 2nd Hand Smoke Exposure: Yes Recent Foreign Travel: No Contact w/Someone Who Travel: No Recent Infectious Disease Expo: No Recent Hopitalizations: No Immunizations Up To Date Tetanus Booster (TDap): Unknown Seasonal Allergies Seasonal Allergies: No Past Medical History Surgeries: Yes Bladder Surgery, Hysterectomy Respiratory: Yes COPD Cardiac: No 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 oz. [id number]; 19.00 BMI Method:Stated General Appearance: mild distress, cachetic HEENT: normal ENT inspection Neck: normal inspection Respiratory: lungs clear Cardiovascular: regular rate, rhythm Gastrointestinal: normal bowel sounds, soft Extremities: other (chronic flexure of the hands) Back: normal inspection Neurologic/Psychiatric: motor weakness Skin: normal color, warm/dry Progress/Results/Core Measures Results/Orders Lab Results Laboratory Tests Test 09/03/19 09:05 09/03/19 09:10 Range/Units Urine Color YELLOW Urine Clarity CLEAR Urine pH 8 5-9 Urine Specific [place] 1.015 L 1.016-1.022 Urine Protein NEGATIVE NEGATIVE Urine Glucose (UA) NEGATIVE NEGATIVE Urine Ketones NEGATIVE NEGATIVE Urine Nitrite NEGATIVE NEGATIVE Urine Bilirubin NEGATIVE NEGATIVE Urine Urobilinogen NORMAL NORMAL MG/DL Urine Leukocyte Esterase 3+ H NEGATIVE Urine RBC (Auto) 3+ H NEGATIVE Urine RBC 2-5 H /HPF Urine WBC >100 H /HPF Urine Squamous Epithelial Cells 0-2 /HPF Urine Crystals NONE /LPF Urine Bacteria FEW H /HPF Urine Casts NONE /LPF Urine Mucus NEGATIVE /LPF Urine Culture Indicated YES White Blood Count 9.3 4.3-11.0 10^3/uL Red Blood Count 4.65 4.35-5.85 10^6/uL Hemoglobin 15.5 11.5-16.0 G/DL Hematocrit 46 35-52 % Mean Corpuscular Volume 98 80-99 FL Mean Corpuscular Hemoglobin 33 25-34 PG Mean Corpuscular Hemoglobin Concent 34 32-36 G/DL Red Cell Distribution Width 12.4 10.0-14.5 % Platelet Count 284 130-400 10^3/uL Mean Platelet Volume 9.8 7.4-10.4 FL Neutrophils (%) (Auto) 65 42-75 % Lymphocytes (%) (Auto) 27 12-44 % Monocytes (%) (Auto) 7 0-12 % Eosinophils (%) (Auto) 1 0-10 % Basophils (%) (Auto) 0 0-10 % Neutrophils # (Auto) 6.0 1.8-7.8 X 10^3 Lymphocytes # (Auto) 2.5 1.0-4.0 X 10^3 Monocytes # (Auto) 0.7 0.0-1.0 X 10^3 Eosinophils # (Auto) 0.1 0.0-0.3 10^3/uL Basophils # (Auto) 0.0 0.0-0.1 10^3/uL Sodium Level 137 135-145 MMOL/L Potassium Level 3.8 3.6-5.0 MMOL/L Chloride Level 103 98-107 MMOL/L Carbon Dioxide Level 23 21-32 MMOL/L Anion Gap 11 5-14 MMOL/L Blood Urea Nitrogen 5 L 7-18 MG/DL Creatinine 0.77 0.60-1.30 MG/DL Estimat Glomerular Filtration Rate > 60 BUN/Creatinine Ratio 6 Glucose Level 89 70-105 MG/DL Calcium Level 9.3 8.5-10.1 MG/DL Corrected Calcium 9.2 8.5-10.1 MG/DL Total Bilirubin 0.5 0.1-1.0 MG/DL Aspartate Amino Transf (AST/SGOT) 21 5-34 U/L Alanine Aminotransferase (ALT/SGPT) 14 0-55 U/L Alkaline Phosphatase 46 40-136 U/L Total Protein 6.9 6.4-8.2 GM/DL Albumin 4.1 3.2-4.5 GM/DL My Orders Orders - GIO WELLER MD Methylprednisolone Sod Succ (Solu-Medrol (09/03/19 09:45) Cbc With Automated Diff (09/03/19 09:45) Comprehensive Metabolic Panel (09/03/19 09:45) Ua Culture If Indicated (09/03/19 09:45) Urine Culture (09/03/19 09:05) Ceftriaxone For Iv Use (Rocephin For I (09/03/19 10:30) Medications Given in ED Current Medications Medications Dose Ordered Sig/Jens Route Start Time Stop Time Status Last Admin Dose Admin Ceftriaxone Sodium 1000 mg/ Sterile Water 10 ml @ 200 mls/hr ONCE ONCE IV 09/03/19 10:30 09/03/19 10:32 DC 09/03/19 10:43 200 MLS/HR Methylprednisolone Sodium Succinate 125 mg ONCE ONCE IVP 09/03/19 09:45 09/03/19 09:46 DC 09/03/19 10:15 125 MG Vital Signs/I&O 09/03/19 09:00 Temp 36.4 Pulse 94 Resp 14 B/P (MAP) 113/43 (66) Pulse Ox 98 O2 Delivery Room Air Blood Pressure Mean: 66 POS Progress Progress Note : Time: 10:04 Progress Note Patient was given 125 mg Solu-Medrol IV. Telephone consultation was undertaken with . He will see the patient on Tuesday. He asked that the patient's prednisone be bumped to 40 mg daily. The patient's urinalysis demonstrated urinary tract infection. The patient received a gram of Rocephin IV. She was placed on Cefdinir 300 mg twice a day for 7 days. Departure Impression Primary Impression: UTI (urinary tract infection) Qualified Codes: N30.00 - Acute cystitis without hematuria Additional Impression: MULTIPLE SCLEROSIS Disposition: HOME, SELF-CARE Condition: Improved Departure-Patient Inst. Decision time for Depature: 10:56 Referrals: ELY DOBBINS MD (PCP/Family) Primary Care Physician Patient Instructions: Urinary Tract Infection, Adult (DC) Add. Discharge Instructions: Cefdinir and prednisone as prescribed. Close follow-up with Dr. Dobbins on Tuesday. Come back if any problems or questions. All discharge instructions reviewed with patient and/or family. Voiced understanding. Scripts Prednisone (Prednisone) 20 Mg Tab 40 MG PO DAILY for 7 Days, #6 TAB 0 Refills Prov: GIO WELLER MD 09/03/19 Cefdinir (Cefdinir) 300 Mg Capsule 300 MG PO BID for 7 Days, #14 CAP 0 Refills Prov: GIO WELLER MD 09/03/19 GIO WELLER MD Sep 03, 2019 09:44 POS
[2019-09-03] MEDS ORDERED: methylPREDNISolone 125 MG (Solu-MEDROL) VIAL IVP ONE (09:45)
[2019-09-03 09:56] LABS: BASOPHILS % (AUTO) 0 % (0-10); EOSINOPHILS # (AUTO) 0.1 10^3/uL (0.0-0.3); EOSINOPHILS % (AUTO) 1 % (0-10); HEMATOCRIT 46 % (35-52); HEMOGLOBIN 15.5 G/DL (11.5-16.0); LYMPHOCYTES # (AUTO) 2.5 X 10^3 (1.0-4.0); LYMPHOCYTES % (AUTO) 27 % (12-44); MEAN CORPUSCULAR HEMOGLOBIN 33 PG (25-34); MEAN CORPUSCULAR HGB CONC 34 G/DL (32-36); MEAN CORPUSCULAR VOLUME 98 FL (80-99); MEAN PLATELET VOLUME 9.8 FL (7.4-10.4); MONOCYTES # (AUTO) 0.7 X 10^3 (0.0-1.0); MONOCYTES % (AUTO) 7 % (0-12); NEUTROPHILS % (AUTO) 65 % (42-75); PLATELET COUNT 284 10^3/uL (130-400); RED CELL DISTRIBUTION WIDTH 12.4 % (10.0-14.5); WHITE BLOOD COUNT 9.3 10^3/uL (4.3-11.0)
[2019-09-03 10:00] LABS: BILIRUBIN,URINE NEGATIVE (NEGATIVE); CLARITY,URINE CLEAR; COLOR,URINE YELLOW; GLUCOSE, URINE (UA) NEGATIVE (NEGATIVE); KETONES,URINE NEGATIVE (NEGATIVE); LEUKOCYTE ESTERASE ,URINE 3+ (NEGATIVE); NITRITE,URINE NEGATIVE (NEGATIVE); PH,URINE 8 (5-9); PROTEIN,URINE NEGATIVE (NEGATIVE)
[2019-09-03 10:08] LABS: ALANINE AMINOTRANSFERASE 14 U/L (0-55); ALBUMIN 4.1 GM/DL (3.2-4.5); ALKALINE PHOSPHATASE 46 U/L (40-136); BILIRUBIN,TOTAL 0.5 MG/DL (0.1-1.0); BUN/CREATININE RATIO 6; CALCIUM 9.3 MG/DL (8.5-10.1); CARBON DIOXIDE 23 MMOL/L (21-32); CHLORIDE 103 MMOL/L (98-107); CREATININE SERUM 0.77 MG/DL (0.60-1.30); GFR ESTIMATED > 60; GLUCOSE 89 MG/DL (70-105); POTASSIUM 3.8 MMOL/L (3.6-5.0); SODIUM 137 MMOL/L (135-145); TOTAL PROTEIN 6.9 GM/DL (6.4-8.2)
[2019-09-03 10:09] LABS: BACTERIA,URINE FEW /HPF; SQUAMOUS EPITHELIAL CELL,UR 0-2 /HPF; WBC,URINE >100 /HPF
[2019-09-03] MEDS ORDERED: cefTRIAXone FOR IV USE 1,000 MG in WATER (STERILE) FOR INJECTION 10 ML IV ONE (10:30)
[2019-09-03] MEDS ORDERED: PRD20T PO (11:02)
[2019-09-03] MEDS ORDERED: CEFD300C3 PO (11:02)
[2019-09-03 11:05] VITALS: BP 109/56
== END 2019-09-03 11:05 | disposition home or self-care (01) ==
LOC: EDUNIT# 08:53 → ER 08:54
DX: N39.0 Urinary tract infection, site not specified (principal); G35 Multiple sclerosis; J44.9 Chronic obstructive pulmonary disease, unspecified; E03.9 Hypothyroidism, unspecified; F17.210 Nicotine dependence, cigarettes, uncomplicated; Z90.710 Acquired absence of both cervix and uterus; Z88.2 Allergy status to sulfonamides; Z79.52 Long term (current) use of systemic steroids
CPT/HCPCS: 36415; 80053; 81000; 85025; 87077; 87088; 87186

== ENCOUNTER 2019-09-29 13:15 | Emergency (ER) | payer MEDICARE, MEDICAID ==
[~2019-09-29] VITALS: Ht 163 cm; Wt 54.0 kg
[~2019-09-29 13:15] MED LIST changes: +PRD20T PO
[2019-09-29] MEDS ORDERED: KETOROLAC 30 MG/ML VIAL IVP ONE (13:30)
[2019-09-29 13:40] LABS: BASOPHILS % (AUTO) 0 % (0-10); EOSINOPHILS # (AUTO) 0.2 10^3/uL (0.0-0.3); EOSINOPHILS % (AUTO) 1 % (0-10); HEMATOCRIT 42 % (35-52); HEMOGLOBIN 14.1 G/DL (11.5-16.0); LYMPHOCYTES # (AUTO) 3.3 X 10^3 (1.0-4.0); LYMPHOCYTES % (AUTO) 26 % (12-44); MEAN CORPUSCULAR HEMOGLOBIN 33 PG (25-34); MEAN CORPUSCULAR HGB CONC 33 G/DL (32-36); MEAN CORPUSCULAR VOLUME 99 FL (80-99); MEAN PLATELET VOLUME 9.4 FL (7.4-10.4); MONOCYTES # (AUTO) 0.5 X 10^3 (0.0-1.0); MONOCYTES % (AUTO) 4 % (0-12); NEUTROPHILS # (AUTO) 8.8 X 10^3 (1.8-7.8); NEUTROPHILS % (AUTO) 69 % (42-75); PLATELET COUNT 266 10^3/uL (130-400); WHITE BLOOD COUNT 12.7 10^3/uL (4.3-11.0)
--- NOTE | 2019-09-29 13:44 | ED 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 Problem ---
General Chief Complaint: Neuro-Stroke Like Symptoms Stated Complaint: POSS STROKE Source: patient Exam Limitations: no limitations History of Present Illness Date Seen by Provider: Sep 29, 2019 Time Seen by Provider: 13:39 Initial Comments To ER by private vehicle from home with reports that she is having a stroke. She has global weakness that was noticed yesterday evening, has had some stool incontinence, pain in the back of her head as well. No fever no chills no cough. No dysuria. She reports a history of multiple sclerosis. She also reports some vision changes. Timing/Duration: 1 week Severity: moderate Associated Symptoms: vision changes Allergies and Home Medications Allergies Coded Allergies: Sulfa (Sulfonamide Antibiotics) (Verified Allergy, Unknown, 09/13/15) Home Medications Acyclovir 200 Mg Capsule, 200 MG PO DAILY, (Reported) Acyclovir 200 Mg Capsule, 200 MG PO DAILY Prescribed by: DONATO VELOZ on 10/13/16 1750 Carisoprodol 250 Mg Tablet, 250 MG PO TID Prescribed by: DONATO VELOZ on 10/13/16 1750 Cefdinir 300 Mg Capsule, 300 MG PO BID Prescribed by: CIRILO VASQUEZ on 06/05/19 1501 Cefdinir 300 Mg Capsule, 300 MG PO BID Prescribed by: GIO WELLER MD on 09/03/19 1102 Cyclobenzaprine HCl 10 Mg Tablet, 10 MG PO Q8H PRN for SPASMS Prescribed by: IRINA MOLINA on 06/23/17 2250 Hydrocodone/Acetaminophen 1 Each Tablet, 1 EACH PO Q6H PRN for PAIN Prescribed by: DONATO VELOZ on 09/13/15 2143 Hydroxychloroquine Sulfate 200 Mg Tablet, 200 MG PO DAILY, (Reported) Levothyroxine Sodium 88 Mcg Tablet, 88 MCG PO DAILY, (Reported) Ondansetron HCl 4 Mg Tab, 4 MG PO Q4H PRN for NAUSEA/VOMITING-1ST LINE Prescribed by: CIRILO VASQUEZ on 01/05/19 182 Paroxetine HCl 20 Mg Tablet, 20 MG PO DAILY, (Reported) Prednisone 10 Mg Tab, 60 MG PO UD 60 mg daily for 2 days then 50 mg daily for 2 days then 40 mg daily for 2 days then 30 mg daily for 2 days then 20mg daily for 2 days then resume normal dose of 10mg daily Prescribed by: DONATO VELOZ on 12/18/18 1907 Prednisone 20 Mg Tab, 40 MG PO DAILY Prescribed by: GIO WELLER MD on 09/03/19 1102 Patient Home Medication List Home Medication List Reviewed: Yes Review of Systems Review of Systems Constitutional: see HPI Eyes: No Symptoms Reported Ears, Nose, Mouth, Throat: no symptoms reported Respiratory: no symptoms reported Cardiovascular: no symptoms reported Gastrointestinal: No abdominal pain; diarrhea Genitourinary: no symptoms reported Musculoskeletal: no symptoms reported Skin: no symptoms reported Psychiatric/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: See HPI, Headache Endocrine: See HPI Hematologic/Lymphatic: No Symptoms Reported Past Sqnitwj-Npkejx-Ncpamq Hx Patient Social History Type Used: Cigarettes 2nd Hand Smoke Exposure: Yes Recent Foreign Travel: No Contact w/Someone Who Travel: No Recent Hopitalizations: No Immunizations Up To Date Tetanus Booster (TDap): Unknown Seasonal Allergies Seasonal Allergies: No Past Medical History Surgeries: Yes Bladder Surgery, Hysterectomy Respiratory: Yes COPD Cardiac: No 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 oz. 56.086134gq; 19.00 BMI Method:Stated General Appearance: WD/WN, no apparent distress HEENT: PERRL/EOMI, normal ENT inspection Neck: non-tender, full range of motion Respiratory: no respiratory distress, no accessory muscle use Cardiovascular: regular rate, rhythm, no murmur Gastrointestinal: normal bowel sounds, soft Extremities: normal range of motion, non-tender Neurologic/Psychiatric: alert, normal mood/affect, oriented x 3 Crainal Nerves: normal hearing, normal speech, PERRL Skin: normal color, warm/dry Stroke Onset of Symptoms Date of Onset of Symptoms: Sep 28, 2019 NIH Stroke Scale Assessment Select: Initial Level of Consciousness: 0=Alert (0), Level of Consciousness- Questions: 0=Answers both month/age (0), LOC Commands: 0=Performs both tasks (0), Gaze: Normal (0), Visual Plata: 0=No visual loss (0), Facial Movement (Facial Paresis): 1=Minor paralysis right sided (1), Motor Function-Arms Right: 0=No drift (0), Motor Function-Arms Left: 0=No drift (0), Motor Function-Legs Right: 0=No drift (0), Motor Function-Legs Left: 0=No drift (0), Limb Ataxia: 1=Present in one limb right arm ataxia evidenced by finger to nose test (1), Sensory: 0=Normal:no loss (0), Best Language: 0=No aphasia (0), Dysarthria: 0=Normal (0), Extinction & Inattention: 0=No abnormality (0), Total: 2 Progress/Results/Core Measures Results/Orders Lab Results Laboratory Tests Test 09/29/19 13:30 09/29/19 13:36 09/29/19 14:51 Range/Units White Blood Count 12.7 H 4.3-11.0 10^3/uL Red Blood Count 4.25 L 4.35-5.85 10^6/uL Hemoglobin 14.1 11.5-16.0 G/DL Hematocrit 42 35-52 % Mean Corpuscular Volume 99 80-99 FL Mean Corpuscular Hemoglobin 33 25-34 PG Mean Corpuscular Hemoglobin Concent 33 32-36 G/DL Red Cell Distribution Width 13.0 10.0-14.5 % Platelet Count 266 130-400 10^3/uL Mean Platelet Volume 9.4 7.4-10.4 FL Neutrophils (%) (Auto) 69 42-75 % Lymphocytes (%) (Auto) 26 12-44 % Monocytes (%) (Auto) 4 0-12 % Eosinophils (%) (Auto) 1 0-10 % Basophils (%) (Auto) 0 0-10 % Neutrophils # (Auto) 8.8 H 1.8-7.8 X 10^3 Lymphocytes # (Auto) 3.3 1.0-4.0 X 10^3 Monocytes # (Auto) 0.5 0.0-1.0 X 10^3 Eosinophils # (Auto) 0.2 0.0-0.3 10^3/uL Basophils # (Auto) 0.0 0.0-0.1 10^3/uL Prothrombin Time 12.1 L 12.2-14.7 SEC INR Comment 0.9 0.8-1.4 Activated Partial Thromboplast Time 28 24-35 SEC D-Dimer 0.34 0.00-0.49 UG/ML Sodium Level 140 135-145 MMOL/L Potassium Level 3.5 L 3.6-5.0 MMOL/L Chloride Level 107 98-107 MMOL/L Carbon Dioxide Level 23 21-32 MMOL/L Anion Gap 10 5-14 MMOL/L Blood Urea Nitrogen 4 L 7-18 MG/DL Creatinine 0.81 0.60-1.30 MG/DL Estimat Glomerular Filtration Rate > 60 BUN/Creatinine Ratio 5 Glucose Level 127 H 70-105 MG/DL Calcium Level 9.0 8.5-10.1 MG/DL Corrected Calcium 9.2 8.5-10.1 MG/DL Total Bilirubin 0.3 0.1-1.0 MG/DL Aspartate Amino Transf (AST/SGOT) 20 5-34 U/L Alanine Aminotransferase (ALT/SGPT) 18 0-55 U/L Alkaline Phosphatase 48 40-136 U/L Troponin I < 0.028 <0.028 NG/ML Total Protein 6.3 L 6.4-8.2 GM/DL Albumin 3.8 3.2-4.5 GM/DL Glucometer 126 H 70-110 MG/DL Urine Color YELLOW Urine Clarity CLEAR Urine pH 7.5 5-9 Urine Specific [place] 1.010 L 1.016-1.022 Urine Protein NEGATIVE NEGATIVE Urine Glucose (UA) NEGATIVE NEGATIVE Urine Ketones NEGATIVE NEGATIVE Urine Nitrite NEGATIVE NEGATIVE Urine Bilirubin NEGATIVE NEGATIVE Urine Urobilinogen 0.2 < = 1.0 MG/DL Urine Leukocyte Esterase NEGATIVE NEGATIVE Urine RBC (Auto) NEGATIVE NEGATIVE Urine RBC NONE /HPF Urine WBC NONE /HPF Urine Squamous Epithelial Cells RARE /HPF Urine Crystals NONE /LPF Urine Bacteria NEGATIVE /HPF Urine Casts NONE /LPF Urine Mucus NEGATIVE /LPF Urine Culture Indicated NO Urine Opiates Screen NEGATIVE NEGATIVE Urine Oxycodone Screen NEGATIVE NEGATIVE Urine Methadone Screen NEGATIVE NEGATIVE Urine Propoxyphene Screen NEGATIVE NEGATIVE Urine Barbiturates Screen NEGATIVE NEGATIVE Ur Tricyclic Antidepressants Screen NEGATIVE NEGATIVE Urine Phencyclidine Screen NEGATIVE NEGATIVE Urine Amphetamines Screen NEGATIVE NEGATIVE Urine Methamphetamines Screen NEGATIVE NEGATIVE Urine Benzodiazepines Screen NEGATIVE NEGATIVE Urine Cocaine Screen NEGATIVE NEGATIVE Urine Cannabinoids Screen NEGATIVE NEGATIVE My Orders Orders - 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,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 Cbc With Automated Diff (09/29/19 13:28) Protime With Inr (09/29/19 13:28) Partial Thromboplastin Time (09/29/19 13:28) Comprehensive Metabolic Panel (09/29/19 13:28) Fibrin Degradation Products (09/29/19 13:28) Troponin I (09/29/19 13:28) Ua Culture If Indicated (09/29/19 13:28) Chest 1 View, Ap/Pa Only (09/29/19 13:28) Ekg Tracing (09/29/19 13:28) Nothing By Mouth (09/29/19 Dinner) Accucheck Stat ONCE (09/29/19 13:28) Ed Iv/Invasive Line Start (09/29/19 13:28) Ed Iv/Invasive Line Start (09/29/19 13:28) Vital Signs Stroke Patient Q15M (09/29/19 13:28) Ct Head Wo-R/O Stroke (09/29/19 13:28) O2 (09/29/19 13:28) Intake & Output 06,14,22 (09/29/19 13:28) Monitor-Rhythm Ecg Trace Only (09/29/19 13:28) Dysphagia Screening Tool (09/29/19 13:28) Post Thrombolytic Adminstratio (09/29/19 13:28) Lipid Panel (09/30/19 06:00) Ct Angio Head/Neck (09/29/19 13:28) Ketorolac Injection (Toradol Injection) (09/29/19 13:30) Drug Screen Stat (Urine) (09/29/19 13:28) Lorazepam Injection (Ativan Injection) (09/29/19 15:00) Medications Given in ED Current Medications Medications Dose Ordered Sig/Jens Route Start Time Stop Time Status Last Admin Dose Admin Iohexol 75 ml ONCE ONCE IV 09/29/19 14:15 09/29/19 14:16 DC 09/29/19 14:25 75 ML Ketorolac Tromethamine 15 mg ONCE ONCE IVP 09/29/19 13:30 09/29/19 13:31 DC 09/29/19 13:37 15 MG Lorazepam 0.5 mg ONCE PRN IVP 09/29/19 15:00 09/29/19 15:13 0.5 MG Vital Signs/I&O 09/29/19 14:33 Pulse 83 Resp 20 B/P (MAP) 134/69 (90) Pulse Ox 99 O2 Delivery Room Air Departure Communication (Admissions) She scores a 2 on the NIH stroke scale because of some right facial asymmetry as compared to the left. The left side moves appropriately when she purses out her lips, right side draws up Asymmetrically compared to the left. When questioned about the right arm ataxia she states "sometimes it just does that". Stating that either her left side or her right side will be uncoordinated from time to time and this symptom does not alarm her. Impression Primary Impression: Multiple sclerosis exacerbation Disposition: HOME, SELF-CARE Condition: Stable Departure-Patient Inst. Decision time for Depature: 15:21 Referrals: ELY DOBBINS MD (PCP/Family) Primary Care Physician Patient Instructions: Multiple Sclerosis in Adults Add. Discharge Instructions: 1. Steroids as directed 2. Return to ER for any concerns 3. All discharge instructions reviewed with patient and/or family. Voiced understanding. Scripts Prednisone (Prednisone) 10 Mg Tab.ds.pk 10 MG PO DAILY, #21 EA Take 6 tabs(60mg)daily,decrease by 1 tab(10MG)daily. Prov: DONATO VELOZ APRN 09/29/19 DONATO VELOZ APRN Sep 29, 2019 13:44 POS
[2019-09-29 13:53] LABS: FIBRIN DEGRADATION PRODUCTS 0.34 UG/ML (0.00-0.49); INR 0.9 (0.8-1.4); PROTHROMBIN TIME PATIENT 12.1 SEC (12.2-14.7)
[2019-09-29 13:59] LABS: ALANINE AMINOTRANSFERASE 18 U/L (0-55); ALBUMIN 3.8 GM/DL (3.2-4.5); ALKALINE PHOSPHATASE 48 U/L (40-136); BILIRUBIN,TOTAL 0.3 MG/DL (0.1-1.0); BUN/CREATININE RATIO 5; CARBON DIOXIDE 23 MMOL/L (21-32); CHLORIDE 107 MMOL/L (98-107); CREATININE SERUM 0.81 MG/DL (0.60-1.30); GFR ESTIMATED > 60; GLUCOSE 127 MG/DL (70-105); POTASSIUM 3.5 MMOL/L (3.6-5.0); SODIUM 140 MMOL/L (135-145); TOTAL PROTEIN 6.3 GM/DL (6.4-8.2)
--- NOTE | 2019-09-29 13:59 | Diagnostic Imaging Report ---
PROCEDURE: CT head wo r/o stroke. TECHNIQUE: Multiple contiguous axial images were obtained through the brain without the use of intravenous contrast. Auto Exposure Controls were utilized during the CT exam to meet ALARA standards for radiation dose reduction. INDICATION: Sudden visual loss and balance problems. Confusion. History of multiple sclerosis. COMPARISON: MR brain on 10/16/2016. CT head on 12/18/2018. FINDINGS: The ventricles and cortical sulci are age-appropriate. There is no midline shift or mass-effect. No acute intracranial hemorrhage is seen. There is no CT evidence of acute territorial ischemia. No focal masses or collections are present. The calvarium is intact. The visualized paranasal sinuses are clear. IMPRESSION: No hemorrhage or focal intra-axial mass. No CT evidence of large acute territorial ischemia. Dictated by: Dictated on workstation # [id number]
[2019-09-29] MEDS ORDERED: IOHEXOL 350 MG/ML 100 ML (OMNIPAQUE 350) VIAL IV ONE (14:15)
[2019-09-29] MEDS ORDERED: HOLD METFORMIN - RECEIVED CONTRAST 20 ML VIAL IV SCH (14:15)
[2019-09-29] MEDS ORDERED: CATHETER FLUSH 10 ML SYR IV PRN (14:15)
--- NOTE | 2019-09-29 14:15 | Diagnostic Imaging Report ---
EXAMINATION: Chest 1 view HISTORY: History of MS and COPD. COMPARISON: 12/18/2018 FINDINGS: The lung volumes are normal. No focal consolidation is seen. No large pleural effusion or pneumothorax is seen. The cardiomediastinal silhouette is normal in size and contour. No acute osseous abnormality is seen. IMPRESSION: 1. No acute pleuroparenchymal process. Dictated by: Dictated on workstation # [id number]
--- NOTE | 2019-09-29 14:37 | Diagnostic Imaging Report ---
PROCEDURE: CT angiography of the head and CT angiography of the neck with and without contrast. TECHNIQUE: Contiguous noncontrast images were obtained from the skull base through the vertex. After intravenous contrast administration, helical CT angiography of the neck was performed. Source data was reformatted into 3D MIP projections. Delayed post contrast acquisition was also obtained. Auto Exposure Controls were utilized during the CT exam to meet ALARA standards for radiation dose reduction. INDICATION: Imbalance and vision loss. COMPARISON: None. FINDINGS: Visualized arch anatomy is grossly normal. The origins of the bilateral vertebral common carotid arteries are normal. The right vertebral artery is dominant. The course and caliber of the bilateral vertebral common carotid and internal carotid arteries is normal. There is no dissection or plaque formation. The basilar artery is grossly normal. There is a normal variant left PCOM. Anterior circulation is grossly normal. The visualized ophthalmic arteries are unremarkable. No large vessel occlusion is seen. There is no aneurysm or AVM. No abnormal enhancement or mass is seen. Venous structures are grossly unremarkable. IMPRESSION: 1. Negative CT angiogram of the head and neck. No vascular occlusion or stenosis identified. 2. Not mentioned above, mild sinus disease. Dictated by: Dictated on workstation # [id number]
[2019-09-29] MEDS ORDERED: LORazepam INJ 2 MG/ML (ATIVAN) VIAL IVP PRN (15:00)
[2019-09-29 15:01] LABS: BILIRUBIN,URINE NEGATIVE (NEGATIVE); CLARITY,URINE CLEAR; COLOR,URINE YELLOW; GLUCOSE, URINE (UA) NEGATIVE (NEGATIVE); KETONES,URINE NEGATIVE (NEGATIVE); LEUKOCYTE ESTERASE ,URINE NEGATIVE (NEGATIVE); NITRITE,URINE NEGATIVE (NEGATIVE); PH,URINE 7.5 (5-9); PROTEIN,URINE NEGATIVE (NEGATIVE)
[2019-09-29 15:09] LABS: BACTERIA,URINE NEGATIVE /HPF; SQUAMOUS EPITHELIAL CELL,UR RARE /HPF
[2019-09-29 15:16] LABS: AMPHETAMINE SCREEN, URINE NEGATIVE (NEGATIVE); BARBITURATE SCREEN URINE NEGATIVE (NEGATIVE); BENZODIAZEPINES SCREEN URINE NEGATIVE (NEGATIVE); CANNABINOID SCREEN, URINE NEGATIVE (NEGATIVE); COCAINE SCREEN URINE NEGATIVE (NEGATIVE); METHADONE STAT NEGATIVE (NEGATIVE); METHAMPHETAMINE SCREEN URINE S NEGATIVE (NEGATIVE); OPIATE SCREEN URINE NEGATIVE (NEGATIVE); OXYCODONE STAT NEGATIVE (NEGATIVE); PROPOXYPHENE STAT NEGATIVE (NEGATIVE); TRICYCLIC ANTIDEPRESSANTS SCRE NEGATIVE (NEGATIVE)
[2019-09-29] MEDS ORDERED: PRED10TA22 PO (15:22)
[2019-09-29 15:37] VITALS: BP 119/77
[2019-09-29 15:58] LABS: FREE T4 (FREE THYROXINE) 1.04 NG/DL (0.70-1.48)
--- OUTSIDE RECORDS SUMMARY | 2019-10-24 22:16 | XMS REPORT | Continuity of Care Document ---
Author Organization Unknown Address Unknown Phone Unavailable Allergies Active Description Code Type Severity Reaction Onset Reported/Identified Relationship to Patient Clinical Status Yes Sulfa (Sulfonamide Antibiotics) [id number] Drug Allergy Unknown N/A 015 Medications There is no data. Problems Date Dx Coded Attending Type Code Diagnosis Diagnosed By 09/13/2015 DONATO VELOZ APRN Ot N20 .9 URINARY CALCULUS, UNSPECIFIED 09/13/2015 DONATO VELOZ APRN Ot N28 .9 DISORDER OF KIDNEY AND URETER, UNSPECIFI 09/13/2015 DONATO VELOZ APRN Ot N39.490 OVERFLOW INCONTINENCE 09/13/2015 DONATO VELOZ APRN Ot R33 .9 RETENTION OF URINE, UNSPECIFIED 10/13/2016 DONATO VELOZ APRN Ot F17.210 NICOTINE DEPENDENCE, CIGARETTES, UNCOMPL 10/13/2016 DONATO VELOZ APRN Ot G35 MULTIPLE SCLEROSIS 10/13/2016 DONATO VELOZ APRN Ot J44 .9 CHRONIC OBSTRUCTIVE PULMONARY DISEASE, U 10/13/2016 DONATO VELOZ APRN Ot R51 HEADACHE 10/13/2016 DONATO VELOZ APRN Ot Z79.899 OTHER CAR MECHANIC HELPER (CURRENT) DRUG THERAPY 10/14/2016 DONATO VELOZ APRN Ot F17.210 NICOTINE DEPENDENCE, CIGARETTES, UNCOMPL 10/14/2016 DONATO VELOZ APRN Ot G35 MULTIPLE SCLEROSIS 10/14/2016 DONATO VELOZ APRN Ot J44 .9 CHRONIC OBSTRUCTIVE PULMONARY DISEASE, U 10/14/2016 DONATO VELOZ APRN Ot R51 HEADACHE 10/14/2016 DONATO VELOZ APRN Ot Z79.899 OTHER SKILLED NURSING (CURRENT) DRUG THERAPY 10/18/2016 ROBERT CASAREZ APRN Ot M48.02 SPINAL STENOSIS, CERVICAL REGION 10/18/2016 ROBERT CASAREZ APRN Ot R41.82 ALTERED MENTAL STATUS, UNSPECIFIED 11/17/2016 HERMELINDO, ROBERT N TUBE MAKING MACHINE OPERATOR Ot M48.02 SPINAL STENOSIS, CERVICAL REGION 11/17/2016 ROBERT CASAREZ TUBE MAKING MACHINE OPERATOR Ot R41.82 ALTERED MENTAL STATUS, UNSPECIFIED 12/14/2016 ROBERT CASAREZ TUBE MAKING MACHINE OPERATOR Ot M48.02 SPINAL STENOSIS, CERVICAL REGION 12/14/2016 ROBERT CASAREZ TUBE MAKING MACHINE OPERATOR Ot R41.82 ALTERED MENTAL STATUS, UNSPECIFIED 06/23/2017 IRINA MOLINA MD J Ot F17.210 NICOTINE DEPENDENCE, CIGARETTES, UNCOMPL 06/23/2017 IRINA MOLINA MD J Ot G35 MULTIPLE SCLEROSIS 06/23/2017 FIDELINA MOLINA MDUS J Ot L93. 0 DISCOID LUPUS ERYTHEMATOSUS 06/23/2017 IRINA MOLINA MD J Ot R10. 30 LOWER ABDOMINAL PAIN, UNSPECIFIED 06/23/2017 IRINA MOLINA MD J Ot R10. 9 UNSPECIFIED ABDOMINAL PAIN 06/23/2017 FIDELINA MOLINA MDUS J Ot R39. 11 HESITANCY OF MICTURITION 06/23/2017 FIDELINA MOLINA MDUS J Ot Z79.899 OTHER CAR MECHANIC HELPER (CURRENT) DRUG THERAPY 06/25/2017 IRINA MOLINA MD J Ot F17.210 NICOTINE DEPENDENCE, CIGARETTES, UNCOMPL 06/25/2017 IRINA MOLINA MD Ot G35 MULTIPLE SCLEROSIS 06/25/2017 FIDELINA MOLINA MDUS J Ot L93. 0 DISCOID LUPUS ERYTHEMATOSUS 06/25/2017 FIDELINA MOLINA MDUS J Ot R10. 30 LOWER ABDOMINAL PAIN, UNSPECIFIED 06/25/2017 IRINA MOLINA MD J Ot R10. 9 UNSPECIFIED ABDOMINAL PAIN 06/25/2017 IRINA MOLINA MD J Ot R39. 11 HESITANCY OF MICTURITION 06/25/2017 IRINA MOLINA MD J Ot Z79.899 OTHER SKILLED NURSING (CURRENT) DRUG THERAPY 08/08/2017 SUMAYA TOVAR, MADIE [...] OTHER NONCOMPLIANCE WITH MEDIC 09/26/2017 RANDA MORAN TUBE MAKING MACHINE OPERATOR Ot M25.572 PAIN IN LEFT ANKLE AND JOINTS OF LEFT FO 05/18/2018 RANDA MORAN TUBE MAKING MACHINE OPERATOR Ot M25.572 PAIN IN LEFT ANKLE AND JOINTS OF LEFT FO 07/19/2018 ROBERT CASAREZ TUBE MAKING MACHINE OPERATOR Ot M48.02 SPINAL STENOSIS, CERVICAL REGION 07/19/2018 ROBERT CASAREZ TUBE MAKING MACHINE OPERATOR Ot R41.82 ALTERED MENTAL STATUS, UNSPECIFIED 07/19/2018 RANDA MORAN TUBE MAKING MACHINE OPERATOR Ot M25.572 PAIN IN LEFT ANKLE AND JOINTS OF LEFT FO 07/19/2018 ANDREI FRENCH MD Ot E03.9 HYPOTHYROIDISM, UNSPECIFIED 07/19/2018 ANDREI FRENCH MD Ot F41.9 ANXIETY DISORDER, UNSPECIFIED 07/19/2018 ANDREI FRENCH MD, Ot G35 MULTIPLE SCLEROSIS 07/19/2018 ANDREI FRENCH MD, Ot J44.9 CHRONIC OBSTRUCTIVE PULMONARY DISEASE, U 07/19/2018 ANDREI FRENCH MD Ot R07.89 OTHER CHEST PAIN 07/19/2018 ANDREI FRENCH MD, Ot Z79.52 SKILLED NURSING (CURRENT) USE OF SYSTEMIC STER 07/19/2018 ANDREI [...] PAIN 07/21/2018 ANDREI FRENCH MD Ot Z79.52 SKILLED NURSING (CURRENT) USE OF SYSTEMIC STER 07/21/2018 ANDREI FRENCH MD Ot Z88.2 ALLERGY STATUS TO SULFONAMIDES STATUS 07/21/2018 ANDREI FRENCH MD Ot Z90.710 ACQUIRED ABSENCE OF BOTH CERVIX AND UTER 10/07/2018 DONATO VELOZ APRN Ot E03 .9 HYPOTHYROIDISM, UNSPECIFIED 10/07/2018 DONATO VELOZ APRN Ot G35 MULTIPLE SCLEROSIS 10/07/2018 DONATO VELOZ APRN Ot J44 .9 CHRONIC OBSTRUCTIVE PULMONARY DISEASE, U 10/07/2018 DONATO VELOZ APRN Ot K29.70 GASTRITIS, UNSPECIFIED, WITHOUT BLEEDING 10/07/2018 DONATO VELOZ APRN Ot M32 .9 SYSTEMIC LUPUS ERYTHEMATOSUS, UNSPECIFIE 10/07/2018 DONATO VELOZ APRN Ot R10.13 EPIGASTRIC PAIN 10/07/2018 DONATO VELOZ APRN Ot Z87.19 PERSONAL HISTORY OF OTHER DISEASES OF TH 10/07/2018 DONATO VELOZ APRN Ot Z88 .2 ALLERGY STATUS TO SULFONAMIDES STATUS 10/07/2018 DONATO VELOZ APRN Ot Z90.710 ACQUIRED ABSENCE OF BOTH CERVIX AND UTER 10/10/2018 DONATO VELOZ APRN Ot E03 .9 HYPOTHYROIDISM, UNSPECIFIED 10/10/2018 DONATO VELOZ APRN Ot G35 MULTIPLE SCLEROSIS 10/10/2018 DONATO VELOZ APRN Ot J44 .9 CHRONIC OBSTRUCTIVE PULMONARY DISEASE, U 10/10/2018 DONATO VELOZ APRN Ot K29.70 GASTRITIS, UNSPECIFIED, WITHOUT BLEEDING 10/10/2018 DONATO VELOZ APRN Ot M32 .9 SYSTEMIC LUPUS ERYTHEMATOSUS, UNSPECIFIE 10/10/2018 DONATO VELOZ APRN Ot R10.13 EPIGASTRIC PAIN 10/10/2018 DONATO VELOZ APRN Ot Z87.19 PERSONAL HISTORY OF OTHER DISEASES OF 10/10/2018 DONATO VELOZ APRN Ot Z88 .2 ALLERGY STATUS TO SULFONAMIDES STATUS 10/10/2018 DONATO VELOZ APRN Ot Z90.710 ACQUIRED ABSENCE OF BOTH CERVIX AND UTER 10/15/2018 DONATO VELOZ APRN Ot E03 .9 HYPOTHYROIDISM, UNSPECIFIED 10/15/2018 DONATO VELOZ APRN Ot G35 MULTIPLE SCLEROSIS 10/15/2018 DONATO VELOZ APRN Ot J44 .9 CHRONIC OBSTRUCTIVE PULMONARY DISEASE, U 10/15/2018 DONATO VELOZ APRN Ot K29.70 GASTRITIS, UNSPECIFIED, WITHOUT BLEEDING 10/15/2018 DONATO VELOZ APRN Ot M32 .9 SYSTEMIC LUPUS ERYTHEMATOSUS, UNSPECIFIE 10/15/2018 DONATO VELOZ APRN Ot R10.13 EPIGASTRIC PAIN 10/15/2018 DONATO VELOZ APRN Ot Z87.19 PERSONAL HISTORY OF OTHER DISEASES OF 10/15/2018 DONTAO VELOZ APRN Ot Z88 .2 ALLERGY STATUS TO SULFONAMIDES STATUS 10/15/2018 DONATO VELOZ APRN Ot Z90.710 ACQUIRED ABSENCE OF BOTH CERVIX AND UTER 12/18/2018 DONATO VELOZ APRN Ot E03 .9 HYPOTHYROIDISM, UNSPECIFIED 12/18/2018 DONATO VELOZ APRN Ot G35 MULTIPLE SCLEROSIS 12/18/2018 DONATO VELOZ APRN Ot J44 .9 CHRONIC OBSTRUCTIVE PULMONARY DISEASE, U 12/18/2018 DONATO VELOZ APRN Ot M32 .9 SYSTEMIC LUPUS ERYTHEMATOSUS, UNSPECIFIE 12/18/2018 VELOZ, PETER J TUBE MAKING MACHINE OPERATOR Ot M54 .2 CERVICALGIA 12/18/2018 DONATO VELOZ APRN Ot N39 .0 URINARY TRACT INFECTION, SITE NOT SPECIF 12/18/2018 DONATO VELOZ APRN Ot R53 .1 WEAKNESS 12/18/2018 DONATO VELOZ APRN Ot Z79.52 SKILLED NURSING (CURRENT) USE OF SYSTEMIC STER 12/18/2018 DONATO VELOZ APRN Ot Z88 .2 ALLERGY STATUS TO SULFONAMIDES STATUS 12/18/2018 DONATO VELOZ APRN Ot Z90.710 ACQUIRED ABSENCE OF BOTH CERVIX AND UTER 12/24/2018 DONATO VELOZ APRN Ot E03 .9 HYPOTHYROIDISM, UNSPECIFIED 12/24/2018 DONATO VELOZ APRN Ot G35 MULTIPLE SCLEROSIS 12/24/2018 DONATO VELOZ APRN Ot J44 .9 CHRONIC OBSTRUCTIVE PULMONARY DISEASE, U 12/24/2018 DONATO VELOZ APRN Ot M32 .9 SYSTEMIC LUPUS ERYTHEMATOSUS, UNSPECIFIE 12/24/2018 DONATO VELOZ APRN Ot M54 .2 CERVICALGIA 12/24/2018 DONATO VELOZ APRN Ot N39 .0 URINARY TRACT INFECTION, SITE NOT SPECIF 12/24/2018 DONATO VELOZ APRN Ot R53 .1 WEAKNESS 12/24/2018 DONATO VELOZ APRN Ot Z79.52 CAR MECHANIC HELPER (CURRENT) USE OF SYSTEMIC STER 12/24/2018 DONATO VLEOZ APRN Ot Z88 .2 ALLERGY STATUS TO SULFONAMIDES STATUS 12/24/2018 DONATO VELOZ APRN Ot Z90.710 ACQUIRED ABSENCE OF BOTH CERVIX AND UTER 01/05/2019 CIRILO VASQUEZ Ot E03.9 HYPOTHYROIDISM, UNSPECIFIED 01/05/2019 BERNRICHA CHASEIS Ot F17.210 NICOTINE DEPENDENCE, CIGARETTES, UNCOMPL 01/05/2019 RICHA VASQUEZIS Ot G35 MULTIPLE SCLEROSIS 01/05/2019 CIRILO VASQUEZ Ot J44.9 CHRONIC OBSTRUCTIVE PULMONARY DISEASE, U 01/05/2019 CIRILO VASQUEZ Ot R10.32 LEFT LOWER QUADRANT PAIN 01/05/2019 BERNRICHA CHASEIS Ot R11.2 NAUSEA WITH VOMITING, UNSPECIFIED 01/05/2019 RICHA VASQUEZIS Ot Z79.52 CAR MECHANIC HELPER (CURRENT) USE OF SYSTEMIC STER 01/05/2019 RICHA [...] J44.9 CHRONIC OBSTRUCTIVE PULMONARY DISEASE, U 01/08/2019 BERNRICHA CHASEIS Ot R10.32 LEFT LOWER QUADRANT PAIN 01/08/2019 RICHA VASQUEZIS Ot R11.2 NAUSEA WITH VOMITING, UNSPECIFIED 01/08/2019 CHRISTINA CIRILO Ot Z79.52 CAR MECHANIC HELPER (CURRENT) USE OF SYSTEMIC STER 01/08/2019 RICHA VASQUEZIS Ot Z88.2 ALLERGY STATUS TO SULFONAMIDES STATUS 01/08/2019 RICHA VASQUEZIS Ot Z90.710 ACQUIRED ABSENCE OF BOTH CERVIX AND UTER 01/08/2019 RICHA VASQUEZIS Ot Z98.890 OTHER SPECIFIED POSTPROCEDURAL STATES 05/01/2019 IRINA MOLINA MD Ot E03. 9 HYPOTHYROIDISM, UNSPECIFIED 05/01/2019 IRINA MOLINA MD Ot G35 MULTIPLE SCLEROSIS 05/01/2019 IRINA MOLINA MD Ot J44. 9 CHRONIC OBSTRUCTIVE PULMONARY DISEASE, U 05/01/2019 IRINA MOLINA MD Ot M25.551 PAIN IN RIGHT HIP 05/01/2019 IRINA MOLINA MD Ot M32. 9 SYSTEMIC LUPUS ERYTHEMATOSUS, UNSPECIFIE 05/01/2019 IRINA MOLINA MD Ot R40.2142 COMA SCALE, EYES OPEN, SPONTANEOUS, EMR 05/01/2019 IRINA MOLINA MD Ot R40.2252 COMA SCALE, BEST VERBAL RESPONSE, ORIENT 05/01/2019 IRINA MOLINA MD Ot R40.2362 COMA SCALE, BEST MOTOR RESPONSE, OBEYS C 05/01/2019 IRINA MOLINA MD Ot W01.0XXA FALL SAME LEV FROM SLIP/TRIP W/O STRIKE 05/01/2019 IRINA MOLINA MD Ot Y93. 01 ACTIVITY, WALKING, MARCHING AND HIKING 05/01/2019 IRINA MOLINA MD Ot Z77. 22 CNTCT W AND EXPSR TO ENVIRON TOBACCO SMO 05/01/2019 IRINA MOLINA MD Ot Z88. 2 ALLERGY STATUS TO SULFONAMIDES STATUS 05/01/2019 IRINA MOLINA MD Ot Z90.710 ACQUIRED ABSENCE OF BOTH CERVIX AND UTER 05/03/2019 IRINA MOLINA MD Ot E03. 9 HYPOTHYROIDISM, UNSPECIFIED 05/03/2019 IRINA MOLINA MD Ot G35 MULTIPLE SCLEROSIS 05/03/2019 IRINA MOLINA MD, Ot J44. 9 CHRONIC OBSTRUCTIVE PULMONARY DISEASE, U 05/03/2019 IRINA MOLINA MD Ot M25.551 PAIN IN RIGHT HIP 05/03/2019 IRINA MOLINA MD Ot M32. 9 SYSTEMIC LUPUS ERYTHEMATOSUS, UNSPECIFIE 05/03/2019 IRINA MOLINA MD Ot R40.2142 COMA SCALE, EYES OPEN, SPONTANEOUS, EMR 05/03/2019 IRINA MOLINA MD Ot R40.2252 COMA SCALE, BEST VERBAL RESPONSE, ORIENT 05/03/2019 IRINA MOLINA MD Ot R40.2362 COMA SCALE, BEST MOTOR RESPONSE, OBEYS C 05/03/2019 IRINA MOLINA MD Ot W01.0XXA FALL SAME LEV FROM SLIP/TRIP W/O STRIKE 05/03/2019 IRINA MOLINA MD Ot Y93. 01 ACTIVITY, WALKING, MARCHING AND HIKING 05/03/2019 IRINA MOLINA MD Ot Z77. 22 CNTCT W AND EXPSR TO ENVIRON TOBACCO SMO 05/03/2019 IRINA MOLINA MD Ot Z88. 2 ALLERGY STATUS TO SULFONAMIDES STATUS 05/03/2019 IRINA MOLINA MD Ot Z90.710 ACQUIRED ABSENCE OF BOTH CERVIX AND UTER 05/20/2019 DONATO VELOZ APRN Ot E03 .9 HYPOTHYROIDISM, UNSPECIFIED 05/20/2019 DONATO VELOZ APRN Ot G35 MULTIPLE SCLEROSIS 05/20/2019 DONATO VELOZ APRN Ot J44 .9 CHRONIC OBSTRUCTIVE PULMONARY DISEASE, U 05/20/2019 DONATO VELOZ APRN Ot M32 .9 SYSTEMIC LUPUS ERYTHEMATOSUS, UNSPECIFIE 05/20/2019 VELOZ, PETER J TUBE MAKING MACHINE OPERATOR Ot R10.31 RIGHT LOWER QUADRANT PAIN 05/20/2019 DONATO VELOZ TUBE MAKING MACHINE OPERATOR Ot Z77.22 CNTCT W AND EXPSR TO ENVIRON TOBACCO SMO 05/20/2019 DONATO VELOZ TUBE MAKING MACHINE OPERATOR Ot Z88 .2 ALLERGY STATUS TO SULFONAMIDES STATUS 05/20/2019 DONATO VELOZ TUBE MAKING MACHINE OPERATOR Ot Z90.710 ACQUIRED ABSENCE OF BOTH CERVIX AND UTER 05/26/2019 DONATO VELOZ TUBE MAKING MACHINE OPERATOR Ot E03 .9 HYPOTHYROIDISM, UNSPECIFIED 05/26/2019 DONATO VELOZ TUBE MAKING MACHINE OPERATOR Ot G35 MULTIPLE SCLEROSIS 05/26/2019 DONATO VELOZ TUBE MAKING MACHINE OPERATOR Ot J44 .9 CHRONIC OBSTRUCTIVE PULMONARY DISEASE, U 05/26/2019 DONATO VELOZ TUBE MAKING MACHINE OPERATOR Ot M32 .9 SYSTEMIC LUPUS ERYTHEMATOSUS, UNSPECIFIE 05/26/2019 DONATO VELOZ APRN Ot R10.31 RIGHT LOWER QUADRANT PAIN 05/26/2019 DONATO VELOZ APRN Ot Z77.22 CNTCT W AND EXPSR TO ENVIRON TOBACCO SMO 05/26/2019 DONATO VELOZ APRN Ot Z88 .2 ALLERGY STATUS TO SULFONAMIDES STATUS 05/26/2019 DONATO VELOZ TUBE MAKING MACHINE OPERATOR Ot Z90.710 ACQUIRED ABSENCE OF BOTH CERVIX AND UTER 06/05/2019 CIRILO VASQUEZ Ot E03.9 HYPOTHYROIDISM, UNSPECIFIED 06/05/2019 CIRILO VASQUEZ Ot G35 MULTIPLE SCLEROSIS 06/05/2019 CIRILO VASQUEZ Ot J44.9 CHRONIC OBSTRUCTIVE PULMONARY DISEASE, U 06/05/2019 CIRILO VASQUEZ Ot N39.0 URINARY TRACT INFECTION, SITE NOT SPECIF 06/05/2019 CIRILO VASQUEZ Ot R10.9 UNSPECIFIED ABDOMINAL PAIN 06/05/2019 CIRILO VASQUEZ Ot Z77.22 CNTCT W AND EXPSR TO ENVIRON TOBACCO SMO 06/05/2019 CIRILO VASQUEZ Ot Z79.52 CAR MECHANIC HELPER (CURRENT) USE OF SYSTEMIC STER 06/05/2019 CIRILO VASQUEZ Ot Z87.39 PERSONAL HISTORY OF DISEASES OF THE MS S 06/05/2019 CIRILO VASQUEZ Ot Z88.2 ALLERGY STATUS TO SULFONAMIDES STATUS 06/05/2019 CIRILO VASQUEZ Ot Z90.710 ACQUIRED ABSENCE OF BOTH CERVIX AND UTER 06/13/2019 MU TOVAR, ELY Hudson Ot Z12.31 ENCNTR SCREEN MAMMOGRAM FOR MALIGNANT NE 06/14/2019 CIRILO VASQUEZ Ot E03.9 HYPOTHYROIDISM, UNSPECIFIED 06/14/2019 RICHA VASQUEZIS Ot G35 MULTIPLE SCLEROSIS 06/14/2019 RICHA VASQUEZIS Ot J44.9 CHRONIC OBSTRUCTIVE PULMONARY DISEASE, U 06/14/2019 RICHA VASQUEZIS Ot N39.0 URINARY TRACT INFECTION, SITE NOT SPECIF 06/14/2019 RICHA VASQUEZIS Ot R10.9 UNSPECIFIED ABDOMINAL PAIN 06/14/2019 CIRILO VASQUEZ Ot Z77.22 CNTCT W AND EXPSR TO ENVIRON TOBACCO SMO 06/14/2019 RICHA VASQUEZIS Ot Z79.52 SKILLED NURSING (CURRENT) USE OF SYSTEMIC STER 06/14/2019 RICHA VASQUEZIS Ot Z87.39 PERSONAL HISTORY OF DISEASES OF THE MS S 06/14/2019 CIRILO VASQUEZ Ot Z88.2 ALLERGY STATUS TO SULFONAMIDES STATUS 06/14/2019 CHRISTINA CIRILO Ot Z90.710 ACQUIRED ABSENCE OF BOTH CERVIX AND UTER 09/03/2019 GIO WELLER MD Ot E03. 9 HYPOTHYROIDISM, UNSPECIFIED 09/03/2019 GIO WELLER MD Ot F17.210 NICOTINE DEPENDENCE, CIGARETTES, UNCOMPL 09/03/2019 GIO WELLER MD Ot G35 MULTIPLE SCLEROSIS 09/03/2019 GIO WELLER MD Ot J44. 9 CHRONIC OBSTRUCTIVE PULMONARY DISEASE, U 09/03/2019 GIO WELLER MD Ot N39. 0 URINARY TRACT INFECTION, SITE NOT SPECIF 09/03/2019 GIO WELLER MD Ot R10. 9 UNSPECIFIED ABDOMINAL PAIN 09/03/2019 GIO WELLER MD Ot Z79. 52 SKILLED NURSING (CURRENT) USE OF SYSTEMIC STER 09/03/2019 GOI WELLER MD Ot Z88. 2 ALLERGY STATUS TO SULFONAMIDES STATUS 09/03/2019 GIO WELLER MD Ot Z90.710 ACQUIRED ABSENCE OF BOTH CERVIX AND UTER 09/07/2019 GIO WELLER MD Ot E03. 9 HYPOTHYROIDISM, UNSPECIFIED 09/07/2019 GIO WELLER MD Ot F17.210 NICOTINE DEPENDENCE, CIGARETTES, UNCOMPL 09/07/2019 GIO WELLER MD Ot G35 MULTIPLE SCLEROSIS 09/07/2019 GIO WELLER MD Ot J44. 9 CHRONIC OBSTRUCTIVE PULMONARY DISEASE, U 09/07/2019 GIO WELLER MD Ot N39. 0 URINARY TRACT INFECTION, SITE NOT SPECIF 09/07/2019 GIO WELLER MD Ot R10. 9 UNSPECIFIED ABDOMINAL PAIN 09/07/2019 GIO WELLER MD Ot Z79. 52 CAR MECHANIC HELPER (CURRENT) USE OF SYSTEMIC STER 09/07/2019 GIO WELLER MD Ot Z88. 2 ALLERGY STATUS TO SULFONAMIDES STATUS 09/07/2019 GIO WELLER MD Ot Z90.710 ACQUIRED ABSENCE OF BOTH CERVIX AND UTER 09/14/2019 GIO WELLER MD Ot E03. 9 HYPOTHYROIDISM, UNSPECIFIED 09/14/2019 GIO WELLER MD Ot F17.210 NICOTINE DEPENDENCE, CIGARETTES, UNCOMPL 09/14/2019 GIO WELLER MD Ot G35 MULTIPLE SCLEROSIS 09/14/2019 GIO WELLER MD Ot J44. 9 CHRONIC OBSTRUCTIVE PULMONARY DISEASE, U 09/14/2019 GIO WELLER MD Ot N39. 0 URINARY TRACT INFECTION, SITE NOT SPECIF 09/14/2019 GIO WELLER MD Ot R10. 9 UNSPECIFIED ABDOMINAL PAIN 09/14/2019 GIO WELLER MD Ot Z79. 52 SKILLED NURSING (CURRENT) USE OF SYSTEMIC STER 09/14/2019 GIO WELLER MD Ot Z88. 2 ALLERGY STATUS TO SULFONAMIDES STATUS 09/14/2019 GIO WELLER MD Ot Z90.710 ACQUIRED ABSENCE OF BOTH CERVIX AND UTER 10/04/2019 DONATO VELOZ APRN Ot E03 .9 HYPOTHYROIDISM, UNSPECIFIED 10/04/2019 DONATO VELOZ APRN Ot G35 MULTIPLE SCLEROSIS 10/04/2019 DONATO VELOZ APRN Ot J44 .9 CHRONIC OBSTRUCTIVE PULMONARY DISEASE, U 10/04/2019 DONATO VELOZ APRN Ot R53 .1 WEAKNESS 10/04/2019 DONATO VELOZ APRN Ot Z77.22 CNTCT W AND EXPSR TO ENVIRON TOBACCO SMO 10/04/2019 DONATO VELOZ APRN Ot Z79.52 SKILLED NURSING (CURRENT) USE OF SYSTEMIC STER 10/04/2019 DONATO VELOZ APRN Ot Z87.39 PERSONAL HISTORY OF DISEASES OF THE MS S 10/04/2019 DONATO VELOZ APRN Ot Z88 .2 ALLERGY STATUS TO SULFONAMIDES STATUS 10/04/2019 DONATO VELOZ APRN Ot Z90.710 ACQUIRED ABSENCE OF BOTH CERVIX AND UTER 10/08/2019 DONATO VELOZ APRN Ot E03 .9 HYPOTHYROIDISM, UNSPECIFIED 10/08/2019 DONATO VELOZ APRN Ot G35 MULTIPLE SCLEROSIS 10/08/2019 DONATO VELOZ APRN Ot J44 .9 CHRONIC OBSTRUCTIVE PULMONARY DISEASE, U 10/08/2019 DONATO VELOZ APRN Ot R53 .1 WEAKNESS 10/08/2019 DONATO VELOZ APRN Ot Z77.22 CNTCT W AND EXPSR TO ENVIRON TOBACCO SMO 10/08/2019 DONATO VELOZ APRN Ot Z79.52 CAR MECHANIC HELPER (CURRENT) USE OF SYSTEMIC STER 10/08/2019 DONATO VELOZ APRN Ot Z87.39 PERSONAL HISTORY OF DISEASES OF THE MS S 10/08/2019 DONATO VELOZ APRN Ot Z88 .2 ALLERGY STATUS TO SULFONAMIDES STATUS 10/08/2019 DONATO VELOZ APRN Ot Z90.710 ACQUIRED ABSENCE OF BOTH CERVIX AND UTER 10/22/2019 MU TOVAR, ELY Hudson Ot G35 MULTIPLE SCLEROSIS Procedures There is no data. Results Test Result Range Complete blood count (CBC) with automate d white blood cell (WBC) differential - 10/13/16 16:30 Blood leukocytes automated count (number/volume) 10.5 10*3/uL 4.3-11.0 Blood erythrocytes automated count (number/volume) 4.50 10*6/uL 4.35-5.85 Venous blood hemoglobin measurement (mass/volume) 15.5 g/dL 11.5-16.0 Blood hematocrit (volume fraction) 46 % 35-52 Automated erythrocyte mean corpuscular volume 101 [foz_us] 80-99 Automated erythrocyte mean corpuscular h emoglobin (mass per erythrocyte) 34 pg 25-34 Automated erythrocyte mean corpuscular h emoglobin concentration measurement (mass/volume) 34 g/dL 32-36 Automated erythrocyte distribution width ratio 12. 4 % 10.0- 14.5 Automated blood platelet count [...] 10*3 1.0-4.0 Blood monocytes automated count (number/volume) 0. 7 10*3 0.0-1.0 Automated eosinophil count 0.2 10*3/uL 0 .0-0.3 Automated blood basophil count (count/volume) 0.1 10*3/uL 0.0-0.1 Comprehensive metabolic panel - 10/13/16 16:30 Serum or plasma sodium measurement (moles/volume) 139 mmol/L 135-145 Serum or plasma potassium measurement (moles/volume) 4.0 mmol/L 3.6-5.0 Serum or plasma chloride measurement (moles/volume) 108 mmol/L 98-107 Carbon dioxide 20 mmol/L 21-32 Serum or plasma anion gap determination (moles/volume) 11 mmol/L 5-14 Serum or plasma urea nitrogen measurement (mass/volume ) 6 mg/dL 7-18 Serum or plasma creatinine measurement (mass/volume) 0.78 mg/dL 0.60-1.30 Serum or plasma urea nitrogen/creatinine mass ratio 8 NRG Serum or plasma creatinine measurement w ith calculation of estimated glomerular filtration rate > NRG Serum or plasma glucose measurement (mass/volume) 104 mg/dL 70-105 Serum or plasma calcium measurement (mass/volume) 9.1 mg/dL 8.5-10.1 Serum or plasma total bilirubin measurement (mass/volu me) 0.3 mg/dL 0.1-1.0 Serum or plasma alkaline phosphatase nicky surement (enzymatic activity/volume) 39 U/L 40-136 Serum or plasma aspartate aminotransfera se measurement (enzymatic activity/volume) 24 U/L 5-34 Serum or plasma alanine aminotransferase measurement (enzymatic activity/volume) 17 U/L 0-55 Serum or plasma protein measurement (mass/volume) 7.0 g/dL 6.4-8.2 Serum or plasma albumin measurement (mass/volume) 4.0 g/dL 3.2-4.5 THYROID STIMULATING HORMONE - 10/13/16 1 6:30 THYROID STIMULATING HORMONE 14.16 u[iU]/mL 0.35-4.94 Serum or plasma thyroxine (T4) free sujata urement (mass/volume) - 10/13/16 16:30 Serum or plasma thyroxine (T4) free measurement (mass/ volume) 1.07 ng/dL 0.70-1.48 Serum or plasma C reactive protein measu rement (mass/volume) - 10/13/16 16:30 Serum or plasma C reactive protein measurement (mass/v olume) 0.34 mg/dL 0.00-0.50 Erythrocyte sedimentation rate by juli gren method - 10/13/16 16:30 Erythrocyte sedimentation rate by westergren method 7 mm 0- 30 Complete urinalysis with reflex to cultu re - 10/13/16 17:03 Urine color determination YELLOW NRG Urine clarity determination CLEAR NR G Urine pH measurement by test strip 6 5-9 Specific gravity of urine by test strip 1.015 1.016-1.022 Urine protein assay by test strip, semi-quantitative NEGATIVE NEGATIVE Urine glucose detection by automated test strip NE GATIVE NEGATIVE Erythrocytes detection in urine sediment by light micr oscopy NEGATIVE NEGATIVE Urine ketones detection by automated test strip NE GATIVE NEGATIVE Urine nitrite detection by test strip NEGATIVE NEGATIVE Urine total bilirubin detection by test strip NEGA TIVE NEGATIVE Urine urobilinogen measurement by automated test strip (mass/volume) NORMAL NORMAL Urine leukocyte esterase detection by dipstick NEG ATIVE NEGATIVE Automated urine sediment erythrocyte cou nt by microscopy (number/high power field) [HPF] NRG Automated urine sediment leukocyte count by microscopy (number/high power field) [HPF] NRG Bacteria detection in urine sediment by light microsco py NEGATIVE NRG Crystals detection in urine sediment by light microsco py NONE NRG Casts detection in urine sediment by light microscopy NONE NRG Mucus detection in urine sediment by light microscopy NEGATIVE NRG Complete urinalysis with reflex to culture NO NRG Urine drug screening test - 10/13/16 17: 03 Urine phencyclidine detection by screening method NEGATIVE NEGATIVE Urine benzodiazepines detection by screening method NEGATIVE NEGATIVE Urine cocaine detection NEGATIVE NEGATI VE Urine amphetamines detection by screening method N EGATIVE NEGATIVE Urine methamphetamine detection by screening method NEGATIVE NEGATIVE Urine cannabinoids detection by screening method N EGATIVE NEGATIVE Urine opiates detection by screening method POSITI VE NEGATIVE Urine barbiturates detection NEGATIVE N EGATIVE Screening urine tricyclic antidepressants detection NEGATIVE NEGATIVE Urine methadone detection by screening method NEGA TIVE NEGATIVE Urine oxycodone detection NEGATIVE NEGA TIVE Urine propoxyphene detection NEGATIVE N EGATIVE Complete urinalysis with reflex to cultu re - 06/23/17 20:51 Urine color determination YELLOW NRG Urine clarity determination CLEAR NR G Urine pH measurement by test strip 5 5-9 Specific gravity of urine by test strip 1.015 1.016-1.022 Urine protein assay by test strip, semi-quantitative NEGATIVE NEGATIVE Urine glucose detection by automated test strip NE GATIVE NEGATIVE Erythrocytes detection in urine sediment by light micr oscopy NEGATIVE NEGATIVE Urine ketones detection by automated test strip NE GATIVE NEGATIVE Urine nitrite detection by test strip NEGATIVE NEGATIVE Urine total bilirubin detection by test strip NEGA TIVE NEGATIVE Urine urobilinogen measurement by automated test strip (mass/volume) NORMAL NORMAL Urine leukocyte esterase detection by dipstick NEG ATIVE NEGATIVE Automated urine sediment erythrocyte cou nt by microscopy (number/high power field) NONE NRG Automated urine sediment leukocyte count by microscopy (number/high power field) NONE NRG Bacteria detection in urine sediment by light microsco py NONE NRG Squamous epithelial cells detection in u rine sediment by light microscopy RARE NRG Crystals detection in urine sediment by light microsco py NONE NRG Casts detection in urine sediment by light microscopy NONE NRG Mucus detection in urine sediment by light microscopy NEGATIVE NRG Complete urinalysis with reflex to culture NO NRG Complete blood count (CBC) with automate d white blood cell (WBC) differential - 06/23/17 20:56 Blood leukocytes automated count (number/volume) 10.5 10*3/uL 4.3-11.0 Blood erythrocytes automated count (number/volume) 4.55 10*6/uL 4.35-5.85 Venous blood hemoglobin measurement (mass/volume) 15.3 g/dL 11.5-16.0 Blood hematocrit (volume fraction) 45 % 35-52 Automated erythrocyte mean corpuscular volume 100 [foz_us] 80-99 Automated erythrocyte mean corpuscular h emoglobin (mass per erythrocyte) 34 pg 25-34 Automated erythrocyte mean corpuscular h emoglobin concentration measurement (mass/volume) 34 g/dL 32-36 Automated erythrocyte distribution width ratio 12. 3 % 10.0- 14.5 Automated blood platelet count [...] 10*3 1.0-4.0 Blood monocytes automated count (number/volume) 0. 7 10*3 0.0-1.0 Automated eosinophil count 0.2 10*3/uL 0 .0-0.3 Automated blood basophil count (count/volume) 0.1 10*3/uL 0.0-0.1 Comprehensive metabolic panel - 06/23/17 20:56 Serum or plasma sodium measurement (moles/volume) 142 mmol/L 135-145 Serum or plasma potassium measurement (moles/volume) 3.7 mmol/L 3.6-5.0 Serum or plasma chloride measurement (moles/volume) 106 mmol/L 98-107 Carbon dioxide 23 mmol/L 21-32 Serum or plasma anion gap determination (moles/volume) 13 mmol/L 5-14 Serum or plasma urea nitrogen measurement (mass/volume ) 5 mg/dL 7-18 Serum or plasma creatinine measurement (mass/volume) 0.81 mg/dL 0.60-1.30 Serum or plasma urea nitrogen/creatinine mass ratio 6 NRG Serum or plasma creatinine measurement w ith calculation of estimated glomerular filtration rate > NRG Serum or plasma glucose measurement (mass/volume) 92 mg/dL 70-105 Serum or plasma calcium measurement (mass/volume) 9.8 mg/dL 8.5-10.1 Serum or plasma total bilirubin measurement (mass/volu me) 0.2 mg/dL 0.1-1.0 Serum or plasma alkaline phosphatase nicky surement (enzymatic activity/volume) 48 U/L 40-136 Serum or plasma aspartate aminotransfera se measurement (enzymatic activity/volume) 18 U/L 5-34 Serum or plasma alanine aminotransferase measurement (enzymatic activity/volume) 14 U/L 0-55 Serum or plasma protein measurement (mass/volume) 6.9 g/dL 6.4-8.2 Serum or plasma albumin measurement (mass/volume) 3.9 g/dL 3.2-4.5 Complete blood count (CBC) with automate d white blood cell (WBC) differential - 07/19/18 19:20 Blood leukocytes automated count (number/volume) 6.3 10*3/uL 4.3-11.0 Blood erythrocytes automated count (number/volume) 4.14 10*6/uL 4.35-5.85 Venous blood hemoglobin measurement (mass/volume) 14.1 g/dL 11.5-16.0 Blood hematocrit (volume fraction) 41 % 35-52 Automated erythrocyte mean corpuscular volume 100 [foz_us] 80-99 Automated erythrocyte mean corpuscular h emoglobin (mass per erythrocyte) 34 pg 25-34 Automated erythrocyte mean corpuscular h emoglobin concentration measurement (mass/volume) 34 g/dL 32-36 Automated erythrocyte distribution width ratio 12. 6 % 10.0- 14.5 Automated blood platelet count [...] 10*3 1.0-4.0 Blood monocytes automated count (number/volume) 0. 4 10*3 0.0-1.0 Automated eosinophil count 0.0 10*3/uL 0 .0-0.3 Automated blood basophil count (count/volume) 0.0 10*3/uL 0.0-0.1 PT panel in platelet poor plasma by coag ulation assay - 07/19/18 19:20 Prothrombin time (PT) in platelet poor plasma by coagu lation assay 12.8 s 12.2-14.7 INR in platelet poor plasma or blood by coagulation as say 1.0 0.8-1.4 Activated partial thromboplastin time (a PTT) in platelet poor plasma bycoagulation assay - 07/19/18 19:20 Activated partial thromboplastin time (a PTT) in platelet poor plasma bycoagulation assay 29 s 24-35 Fibrin D-dimer FEU measurement in platel et poor plasma (mass/volume) - 07/19/18 19:20 Fibrin [...] 5-14 Serum or plasma urea nitrogen measurement (mass/volume ) 5 mg/dL 7-18 Serum or plasma creatinine measurement (mass/volume) 0.75 mg/dL 0.60-1.30 Serum or plasma urea nitrogen/creatinine mass ratio 7 NRG Serum or plasma creatinine measurement w ith calculation of estimated glomerular filtration rate > NRG Serum or plasma glucose measurement (mass/volume) 106 mg/dL 70-105 Serum or plasma calcium measurement (mass/volume) 9.6 mg/dL 8.5-10.1 Serum or plasma total bilirubin measurement (mass/volu me) 0.2 mg/dL 0.1-1.0 Serum or plasma alkaline phosphatase nicky surement (enzymatic activity/volume) 36 U/L 40-136 Serum or plasma aspartate aminotransfera se measurement (enzymatic activity/volume) 18 U/L 5-34 Serum or plasma alanine aminotransferase measurement (enzymatic activity/volume) 17 U/L 0-55 Serum or plasma protein measurement (mass/volume) 6.9 g/dL 6.4-8.2 Serum or plasma albumin measurement (mass/volume) 4.1 g/dL 3.2-4.5 CALCIUM CORRECTED 9.5 mg/dL 8.5-10.1 Magnesium - 07/19/18 19:20 Magnesium 2.3 mg/dL 1.8-2.4 Serum or plasma troponin i.cardiac measu rement (mass/volume) - 07/19/18 19:20 Serum or plasma troponin i.cardiac measurement (mass/v olume) < ng/mL <0.30 Myoglobin, serum - 07/19/18 19:20 Myoglobin, serum 37.4 ng/mL 10.0-92.0 Lipase - 07/19/18 19:20 Lipase 37 U/L 8-78 Complete urinalysis with reflex to cultu re - 10/07/18 18:58 Urine color determination YELLOW NRG Urine clarity determination CLEAR NR G Urine pH measurement by test strip 6.5 5-9 Specific gravity of urine by test strip 1.015 1.016-1.022 Urine protein assay by test strip, semi-quantitative NEGATIVE NEGATIVE Urine glucose detection by automated test strip NE GATIVE NEGATIVE Erythrocytes detection in urine sediment by light micr oscopy NEGATIVE NEGATIVE Urine ketones detection by automated test strip NE GATIVE NEGATIVE Urine nitrite detection by test strip NEGATIVE NEGATIVE Urine total bilirubin detection by test strip NEGA TIVE NEGATIVE Urine urobilinogen measurement by automated test strip (mass/volume) NORMAL NORMAL Urine leukocyte esterase detection by dipstick 1+ NEGATIVE Automated urine sediment erythrocyte cou nt by microscopy (number/high power field) NONE NRG Automated urine sediment leukocyte count by microscopy (number/high power field) [HPF] NRG Bacteria detection in urine sediment by light microsco py NONE NRG Squamous epithelial cells detection in u rine sediment by light microscopy RARE NRG Crystals detection in urine sediment by light microsco py NONE NRG Casts detection in urine sediment by light microscopy NONE NRG Mucus detection in urine sediment by light microscopy NEGATIVE NRG Complete urinalysis with reflex to culture NO NRG PT panel in platelet poor plasma by coag ulation assay - 10/07/18 19:05 Prothrombin time (PT) in platelet poor plasma by coagu lation assay 12.5 s 12.2-14.7 INR in platelet poor plasma or blood by coagulation as say 0.9 0.8-1.4 Activated partial thromboplastin time (a PTT) in platelet poor plasma bycoagulation assay - 10/07/18 19:05 Activated partial thromboplastin time (a PTT) in platelet poor plasma bycoagulation assay 31 s 24-35 Complete blood count (CBC) with automate d white blood cell (WBC) differential - 10/07/18 19:05 Blood leukocytes automated count (number/volume) 7.4 10*3/uL 4.3-11.0 Blood erythrocytes automated count (number/volume) 4.30 10*6/uL 4.35-5.85 Venous blood hemoglobin measurement (mass/volume) 14.6 g/dL 11.5-16.0 Blood hematocrit (volume fraction) 43 % 35-52 Automated erythrocyte mean corpuscular volume 101 [foz_us] 80-99 Automated erythrocyte mean corpuscular h emoglobin (mass per erythrocyte) 34 pg 25-34 Automated erythrocyte mean corpuscular h emoglobin concentration measurement (mass/volume) 34 g/dL 32-36 Automated erythrocyte distribution width ratio 12. 2 % 10.0- 14.5 Automated blood platelet count [...] 10*3 1.0-4.0 Blood monocytes automated count (number/volume) 0. 5 10*3 0.0-1.0 Automated eosinophil count 0.1 10*3/uL 0 .0-0.3 Automated blood basophil count (count/volume) 0.0 10*3/uL 0.0-0.1 Comprehensive metabolic panel - 10/07/18 19:05 Serum or plasma sodium measurement (moles/volume) 141 mmol/L 135-145 Serum or plasma potassium measurement (moles/volume) 3.9 mmol/L 3.6-5.0 Serum or plasma chloride measurement (moles/volume) 104 mmol/L 98-107 Carbon dioxide 25 mmol/L 21-32 Serum or plasma anion gap determination (moles/volume) 12 mmol/L 5-14 Serum or plasma urea nitrogen measurement (mass/volume ) 5 mg/dL 7-18 Serum or plasma creatinine measurement (mass/volume) 0.79 mg/dL 0.60-1.30 Serum or plasma urea nitrogen/creatinine mass ratio 6 NRG Serum or plasma creatinine measurement w ith calculation of estimated glomerular filtration rate > NRG Serum or plasma glucose measurement (mass/volume) 89 mg/dL 70-105 Serum or plasma calcium measurement (mass/volume) 9.6 mg/dL 8.5-10.1 Serum or plasma total bilirubin measurement (mass/volu me) 0.2 mg/dL 0.1-1.0 Serum or plasma alkaline phosphatase nicky surement (enzymatic activity/volume) 44 U/L 40-136 Serum or plasma aspartate aminotransfera se measurement (enzymatic activity/volume) 20 U/L 5-34 Serum or plasma alanine aminotransferase measurement (enzymatic activity/volume) 16 U/L 0-55 Serum or plasma protein measurement (mass/volume) 7.1 g/dL 6.4-8.2 Serum or plasma albumin measurement (mass/volume) 4.1 g/dL 3.2-4.5 CALCIUM CORRECTED 9.5 mg/dL 8.5-10.1 Magnesium - 10/07/18 19:05 Magnesium 2.2 mg/dL 1.8-2.4 Serum or plasma troponin i.cardiac measu rement (mass/volume) - 10/07/18 19:05 Serum or plasma troponin i.cardiac measurement (mass/v olume) < ng/mL <0.30 Myoglobin, serum - 10/07/18 19:05 Myoglobin, serum 48.3 ng/mL 10.0-92.0 Serum or plasma amylase measurement (enz ymatic activity/volume) - 10/07/18 19:05 Serum or plasma amylase measurement (enzymatic activit y/volume) 126 U/L 25-125 Serum or plasma lithium measurement (mol es/volume) - 10/07/18 19:05 BNP level 10.4 pg/mL <100.0 Lipase - 10/07/18 19:05 Lipase 39 U/L 8-78 Complete blood count (CBC) with automate d white blood cell (WBC) differential - 12/18/18 17:50 Blood leukocytes automated count (number/volume) 10.9 10*3/uL 4.3-11.0 Blood erythrocytes automated count (number/volume) 4.38 10*6/uL 4.35-5.85 Venous blood hemoglobin measurement (mass/volume) 15.3 g/dL 11.5-16.0 Blood hematocrit (volume fraction) 44 % 35-52 Automated erythrocyte mean corpuscular volume 101 [foz_us] 80-99 Automated erythrocyte mean corpuscular h emoglobin (mass per erythrocyte) 35 pg 25-34 Automated erythrocyte mean corpuscular h emoglobin concentration measurement (mass/volume) 35 g/dL 32-36 Automated erythrocyte distribution width ratio 12. 6 % 10.0- 14.5 Automated blood platelet count [...] 10*3 1.0-4.0 Blood monocytes automated count (number/volume) 0. 6 10*3 0.0-1.0 Automated eosinophil count 0.1 10*3/uL 0 .0-0.3 Automated blood basophil count (count/volume) 0.1 10*3/uL 0.0-0.1 Comprehensive metabolic panel - 12/18/18 17:50 Serum or plasma sodium measurement (moles/volume) 138 mmol/L 135-145 Serum or plasma potassium measurement (moles/volume) 3.5 mmol/L 3.6-5.0 Serum or plasma chloride measurement (moles/volume) 105 mmol/L 98-107 Carbon dioxide 24 mmol/L 21-32 Serum or plasma anion gap determination (moles/volume) 9 mmol/L 5-14 Serum or plasma urea nitrogen measurement (mass/volume ) 6 mg/dL 7-18 Serum or plasma creatinine measurement (mass/volume) 0.80 mg/dL 0.60-1.30 Serum or plasma urea nitrogen/creatinine mass ratio 8 NRG Serum or plasma creatinine measurement w ith calculation of estimated glomerular filtration rate > NRG Serum or plasma glucose measurement (mass/volume) 84 mg/dL 70-105 Serum or plasma calcium measurement (mass/volume) 9.1 mg/dL 8.5-10.1 Serum or plasma total bilirubin measurement (mass/volu me) 0.2 mg/dL 0.1-1.0 Serum or plasma alkaline phosphatase nicky surement (enzymatic activity/volume) 38 U/L 40-136 Serum or plasma aspartate aminotransfera se measurement (enzymatic activity/volume) 20 U/L 5-34 Serum or plasma alanine aminotransferase measurement (enzymatic activity/volume) 15 U/L 0-55 Serum or plasma protein measurement (mass/volume) 6.8 g/dL 6.4-8.2 Serum or plasma albumin measurement (mass/volume) 3.9 g/dL 3.2-4.5 CALCIUM CORRECTED 9.2 mg/dL 8.5-10.1 Erythrocyte sedimentation rate by juli gren method - 12/18/18 17:50 Erythrocyte sedimentation rate by westergren method 6 mm 0- 30 Serum or plasma creatine kinase MB measu rement (enzymatic activity/volume) - 12/18/18 17:50 Serum or plasma creatine kinase MB measu rement (enzymatic activity/volume) 0.5 ng/mL <6.6 Serum or plasma troponin i.cardiac measu rement (mass/volume) - 12/18/18 17:50 Serum or plasma troponin i.cardiac measurement (mass/v olume) < ng/mL <0.028 Myoglobin, serum - 12/18/18 17:50 Myoglobin, serum 35.4 ng/mL 10.0-92.0 THYROID STIMULATING HORMONE - 12/18/18 1 7:50 THYROID STIMULATING HORMONE 2.14 u[iU]/mL 0.35-4.94 Serum or plasma C reactive protein measu rement (mass/volume) - 12/18/18 17:50 Serum or plasma C reactive protein measurement (mass/v olume) 0.14 mg/dL 0.00-0.50 Serum or plasma ethanol measurement (mas s/volume) - 12/18/18 17:50 Serum or plasma ethanol measurement (mass/volume) < mg/dL <10 Influenza virus A and B antigen detectio n - 12/18/18 18:05 FLU RESULT NEGATIVE FOR INFLUENZA A AND B ANTIGENS BY IA NRG Complete urinalysis with reflex to cultu re - 12/18/18 18:16 Urine color determination YELLOW NRG Urine clarity determination CLEAR NR G Urine pH measurement by test strip 7 5-9 Specific gravity of urine by test strip 1.010 1.016-1.022 Urine protein assay by test strip, semi-quantitative NEGATIVE NEGATIVE Urine glucose detection by automated test strip NE GATIVE NEGATIVE Erythrocytes detection in urine sediment by light micr oscopy NEGATIVE NEGATIVE Urine ketones detection by automated test strip NE GATIVE NEGATIVE Urine nitrite detection by test strip NEGATIVE NEGATIVE Urine total bilirubin detection by test strip NEGA TIVE NEGATIVE Urine urobilinogen measurement by automated test strip (mass/volume) NORMAL NORMAL Urine leukocyte esterase detection by dipstick 3+ NEGATIVE Automated urine sediment erythrocyte cou nt by microscopy (number/high power field) NONE NRG Automated urine sediment leukocyte count by microscopy (number/high power field) [HPF] NRG Bacteria detection in urine sediment by light microsco py NEGATIVE NRG Squamous epithelial cells detection in u rine sediment by light microscopy RARE NRG Crystals detection in urine sediment by light microsco py NONE NRG Casts detection in urine sediment by light microscopy NONE NRG Mucus detection in urine sediment by light microscopy NEGATIVE NRG Complete urinalysis with reflex to culture YES NRG Urine drug screening test - 12/18/18 18: 16 Urine phencyclidine detection by screening method NEGATIVE NEGATIVE Urine benzodiazepines detection by screening method POSITIVE NEGATIVE Urine cocaine detection NEGATIVE NEGATI VE Urine amphetamines detection by screening method N EGATIVE NEGATIVE Urine methamphetamine detection by screening method NEGATIVE NEGATIVE Urine cannabinoids detection by screening method N EGATIVE NEGATIVE Urine opiates detection by screening method POSITI VE NEGATIVE Urine barbiturates detection NEGATIVE N EGATIVE Screening urine tricyclic antidepressants detection NEGATIVE NEGATIVE Urine methadone detection by screening method NEGA TIVE NEGATIVE Urine oxycodone detection NEGATIVE NEGA TIVE Urine propoxyphene detection NEGATIVE N EGATIVE Bacterial urine culture - 12/18/18 18:16 Bacterial urine culture NG NRG Complete urinalysis with reflex to cultu re - 01/05/19 15:49 Urine color determination YELLOW NRG Urine clarity determination CLEAR NR G Urine pH measurement by test strip 6.5 5-9 Specific gravity of urine by test strip 1.010 1.016-1.022 Urine protein assay by test strip, semi-quantitative NEGATIVE NEGATIVE Urine glucose detection by automated test strip NE GATIVE NEGATIVE Erythrocytes detection in urine sediment by light micr oscopy NEGATIVE NEGATIVE Urine ketones detection by automated test strip NE GATIVE NEGATIVE Urine nitrite detection by test strip NEGATIVE NEGATIVE Urine total bilirubin detection by test strip NEGA TIVE NEGATIVE Urine urobilinogen measurement by automated test strip (mass/volume) NORMAL NORMAL Urine leukocyte esterase detection by dipstick NEG ATIVE NEGATIVE Automated urine sediment erythrocyte cou nt by microscopy (number/high power field) NONE NRG Automated urine sediment leukocyte count by microscopy (number/high power field) NONE NRG Bacteria detection in urine sediment by light microsco py NEGATIVE NRG Squamous epithelial cells detection in u rine sediment by light microscopy NONE NRG Crystals detection in urine sediment by light microsco py NONE NRG Casts detection in urine sediment by light microscopy NONE NRG Mucus detection in urine sediment by light microscopy NEGATIVE NRG Complete urinalysis with reflex to culture NO NRG Complete blood count (CBC) with automate d white blood cell (WBC) differential - 01/05/19 16:08 Blood leukocytes automated count (number/volume) 8.8 10*3/uL 4.3-11.0 Blood erythrocytes automated count (number/volume) 4.19 10*6/uL 4.35-5.85 Venous blood hemoglobin measurement (mass/volume) 14.7 g/dL 11.5-16.0 Blood hematocrit (volume fraction) 42 % 35-52 Automated erythrocyte mean corpuscular volume 101 [foz_us] 80-99 Automated erythrocyte mean corpuscular h emoglobin (mass per erythrocyte) 35 pg 25-34 Automated erythrocyte mean corpuscular h emoglobin concentration measurement (mass/volume) 35 g/dL 32-36 Automated erythrocyte distribution width ratio 12. 6 % 10.0- 14.5 Automated blood platelet count [...] 10*3 1.0-4.0 Blood monocytes automated count (number/volume) 0. 5 10*3 0.0-1.0 Automated eosinophil count 0.1 10*3/uL 0 .0-0.3 Automated blood basophil count (count/volume) 0.0 10*3/uL 0.0-0.1 Comprehensive metabolic panel - 01/05/19 16:08 Serum or plasma sodium measurement (moles/volume) 139 mmol/L 135-145 Serum or plasma potassium measurement (moles/volume) 3.6 mmol/L 3.6-5.0 Serum or plasma chloride measurement (moles/volume) 104 mmol/L 98-107 Carbon dioxide 24 mmol/L 21-32 Serum or plasma anion gap determination (moles/volume) 11 mmol/L 5-14 Serum or plasma urea nitrogen measurement (mass/volume ) 9 mg/dL 7-18 Serum or plasma creatinine measurement (mass/volume) 0.84 mg/dL 0.60-1.30 Serum or plasma urea nitrogen/creatinine mass ratio 11 NRG Serum or plasma creatinine measurement w ith calculation of estimated glomerular filtration rate > NRG Serum or plasma glucose measurement (mass/volume) 95 mg/dL 70-105 Serum or plasma calcium measurement (mass/volume) 9.9 mg/dL 8.5-10.1 Serum or plasma total bilirubin measurement (mass/volu me) 0.5 mg/dL 0.1-1.0 Serum or plasma alkaline phosphatase nicky surement (enzymatic activity/volume) 36 U/L 40-136 Serum or plasma aspartate aminotransfera se measurement (enzymatic activity/volume) 21 U/L 5-34 Serum or plasma alanine aminotransferase measurement (enzymatic activity/volume) 15 U/L 0-55 Serum or plasma protein measurement (mass/volume) 6.5 g/dL 6.4-8.2 Serum or plasma albumin measurement (mass/volume) 3.8 g/dL 3.2-4.5 CALCIUM CORRECTED 10.1 mg/dL 8.5-10.1 Serum or plasma amylase measurement (enz ymatic activity/volume) - 01/05/19 16:08 Serum or plasma amylase measurement (enzymatic activit y/volume) 95 U/L 25-125 Lipase - 01/05/19 16:08 Lipase 34 U/L 8-78 Complete blood count (CBC) with automate d white blood cell (WBC) differential - 05/01/19 19:34 Blood leukocytes automated count (number/volume) 10.9 10*3/uL 4.3-11.0 Blood erythrocytes automated count (number/volume) 4.26 10*6/uL 4.35-5.85 Venous blood hemoglobin measurement (mass/volume) 14.5 g/dL 11.5-16.0 Blood hematocrit (volume fraction) 43 % 35-52 Automated erythrocyte mean corpuscular volume 101 [foz_us] 80-99 Automated erythrocyte mean corpuscular h emoglobin (mass per erythrocyte) 34 pg 25-34 Automated erythrocyte mean corpuscular h emoglobin concentration measurement (mass/volume) 34 g/dL 32-36 Automated erythrocyte distribution width ratio 12. 9 % 10.0- 14.5 Automated blood platelet count [...] 10*3 1.0-4.0 Blood monocytes automated count (number/volume) 0. 8 10*3 0.0-1.0 Automated eosinophil count 0.2 10*3/uL 0 .0-0.3 Automated blood basophil count (count/volume) 0.1 10*3/uL 0.0-0.1 Comprehensive metabolic panel - 05/01/19 19:34 Serum or plasma sodium measurement (moles/volume) 139 mmol/L 135-145 Serum or plasma potassium measurement (moles/volume) 3.7 mmol/L 3.6-5.0 Serum or plasma chloride measurement (moles/volume) 106 mmol/L 98-107 Carbon dioxide 25 mmol/L 21-32 Serum or plasma anion gap determination (moles/volume) 8 mmol/L 5-14 Serum or plasma urea nitrogen measurement (mass/volume ) 5 mg/dL 7-18 Serum or plasma creatinine measurement (mass/volume) 0.89 mg/dL 0.60-1.30 Serum or plasma urea nitrogen/creatinine mass ratio 6 NRG Serum or plasma creatinine measurement w ith calculation of estimated glomerular filtration rate > NRG Serum or plasma glucose measurement (mass/volume) 92 mg/dL 70-105 Serum or plasma calcium measurement (mass/volume) 9.2 mg/dL 8.5-10.1 Serum or plasma total bilirubin measurement (mass/volu me) 0.3 mg/dL 0.1-1.0 Serum or plasma alkaline phosphatase nicky surement (enzymatic activity/volume) 41 U/L 40-136 Serum or plasma aspartate aminotransfera se measurement (enzymatic activity/volume) 21 U/L 5-34 Serum or plasma alanine aminotransferase measurement (enzymatic activity/volume) 19 U/L 0-55 Serum or plasma protein measurement (mass/volume) 6.7 g/dL 6.4-8.2 Serum or plasma albumin measurement (mass/volume) 3.9 g/dL 3.2-4.5 CALCIUM CORRECTED 9.3 mg/dL 8.5-10.1 Complete urinalysis with reflex to cultu re - 05/01/19 20:29 Urine color determination YELLOW NRG Urine clarity determination CLEAR NR G Urine pH measurement by test strip 7 5-9 Specific gravity of urine by test strip 1.005 1.016-1.022 Urine protein assay by test strip, semi-quantitative NEGATIVE NEGATIVE Urine glucose detection by automated test strip NE GATIVE NEGATIVE Erythrocytes detection in urine sediment by light micr oscopy NEGATIVE NEGATIVE Urine ketones detection by automated test strip NE GATIVE NEGATIVE Urine nitrite detection by test strip NEGATIVE NEGATIVE Urine total bilirubin detection by test strip NEGA TIVE NEGATIVE Urine urobilinogen measurement by automated test strip (mass/volume) NORMAL NORMAL Urine leukocyte esterase detection by dipstick 1+ NEGATIVE Automated urine sediment erythrocyte cou nt by microscopy (number/high power field) NONE NRG Automated urine sediment leukocyte count by microscopy (number/high power field) NONE NRG Bacteria detection in urine sediment by light microsco py TRACE NRG Squamous epithelial cells detection in u rine sediment by light microscopy RARE NRG Crystals detection in urine sediment by light microsco py NONE NRG Casts detection in urine sediment by light microscopy NONE NRG Mucus detection in urine sediment by light microscopy NEGATIVE NRG Complete urinalysis with reflex to culture NO NRG Complete urinalysis with reflex to cultu re - 05/20/19 19:12 Urine color determination YELLOW NRG Urine clarity determination CLOUDY NR G Urine pH measurement by test strip 6 5-9 Specific gravity of urine by test strip 1.010 1.016-1.022 Urine protein assay by test strip, semi-quantitative 2+ NEGATIVE Urine glucose detection by automated test strip NE GATIVE NEGATIVE Erythrocytes detection in urine sediment by light micr oscopy 2+ NEGATIVE Urine ketones detection by automated test strip NE GATIVE NEGATIVE Urine nitrite detection by test strip NEGATIVE NEGATIVE Urine total bilirubin detection by test strip NEGA TIVE NEGATIVE Urine urobilinogen measurement by automated test strip (mass/volume) NORMAL NORMAL Urine leukocyte esterase detection by dipstick 3+ NEGATIVE Automated urine sediment erythrocyte cou nt by microscopy (number/high power field) RARE NRG Automated urine sediment leukocyte count by microscopy (number/high power field) > [HPF] NRG Bacteria detection in urine sediment by light microsco py TRACE NRG Squamous epithelial cells detection in u rine sediment by light microscopy 0-2 NRG Crystals detection in urine sediment by light microsco py NONE NRG Casts detection in urine sediment by light microscopy NONE NRG Mucus detection in urine sediment by light microscopy NEGATIVE NRG Complete urinalysis with reflex to culture YES NRG Bacterial urine culture - 05/20/19 19:12 Bacterial urine culture [id number] NRG COLONY COUNT 60,000 cfu/ml NRG FTX;REPORTABLE SUSCEPTIBILITY REPORTED 05/22/19 11: 10 NRG FREE TEXT ENTRY 2 ID REPORTED 05/21/19 16:05 NRG Dirithromycin susceptibility test by dis k diffusion - 05/20/19 19:12 Gentamicin susceptibility test by minimum inhibitory c oncentration <= NRG Trimethoprim/sulfamethoxazole susceptibi lity test by minimum inhibitoryconcentration > NRG Levofloxacin susceptibility test by minimum inhibitory concentration > NRG Ampicillin susceptibility test by minimum inhibitory c oncentration > NRG Cefazolin susceptibility test by minimum inhibitory co ncentration 2 NRG Ceftriaxone susceptibility test by minimum inhibitory concentration <= NRG Ciprofloxacin susceptibility test by minimum inhibitor y concentration > NRG Meropenem susceptibility test by minimum inhibitory co ncentration <= NRG Nitrofurantoin susceptibility test by mi nimum inhibitory concentration <= NRG Amoxicillin and clavulanate potassium susc BLANCA = NRG Complete blood count (CBC) with automate d white blood cell (WBC) differential - 05/20/19 19:13 Blood leukocytes automated count (number/volume) 15.6 10*3/uL 4.3-11.0 Blood erythrocytes automated count (number/volume) 4.12 10*6/uL 4.35-5.85 Venous blood hemoglobin measurement (mass/volume) 13.7 g/dL 11.5-16.0 Blood hematocrit (volume fraction) 42 % 35-52 Automated erythrocyte mean corpuscular volume 101 [foz_us] 80-99 Automated erythrocyte mean corpuscular h emoglobin (mass per erythrocyte) 33 pg 25-34 Automated erythrocyte mean corpuscular h emoglobin concentration measurement (mass/volume) 33 g/dL 32-36 Automated erythrocyte distribution width ratio 12. 9 % 10.0- 14.5 Automated blood platelet count [...] 10*3 1.0-4.0 Blood monocytes automated count (number/volume) 1. 4 10*3 0.0-1.0 Automated eosinophil count 0.2 10*3/uL 0 .0-0.3 Automated blood basophil count (count/volume) 0.1 10*3/uL 0.0-0.1 Manual absolute plasma cell count - 05/01 11/18 19:13 Blood monocytes/100 leukocytes 4 % NRG [...] NRG Whole blood basic metabolic panel - 05/01 11/18 19:13 Serum or plasma sodium measurement (moles/volume) 136 mmol/L 135-145 Serum or plasma potassium measurement (moles/volume) 3.6 mmol/L 3.6-5.0 Serum or plasma chloride measurement (moles/volume) 102 mmol/L 98-107 Carbon dioxide 25 mmol/L 21-32 Serum or plasma anion gap determination (moles/volume) 9 mmol/L 5-14 Serum or plasma urea nitrogen measurement (mass/volume ) 5 mg/dL 7-18 Serum or plasma creatinine measurement (mass/volume) 0.77 mg/dL 0.60-1.30 Serum or plasma urea nitrogen/creatinine mass ratio 6 NRG Serum or plasma creatinine measurement w ith calculation of estimated glomerular filtration rate > NRG Serum or plasma glucose measurement (mass/volume) 84 mg/dL 70-105 Serum or plasma calcium measurement (mass/volume) 9.0 mg/dL 8.5-10.1 Complete urinalysis with reflex to cultu re - 06/05/19 14:11 Urine color determination YELLOW NRG Urine clarity determination CLEAR NR G Urine pH measurement by test strip 7 5-9 Specific gravity of urine by test strip 1.005 1.016-1.022 Urine protein assay by test strip, semi-quantitative NEGATIVE NEGATIVE Urine glucose detection by automated test strip NE GATIVE NEGATIVE Erythrocytes detection in urine sediment by light micr oscopy 1+ NEGATIVE Urine ketones detection by automated test strip NE GATIVE NEGATIVE Urine nitrite detection by test strip NEGATIVE NEGATIVE Urine total bilirubin detection by test strip NEGA TIVE NEGATIVE Urine urobilinogen measurement by automated test strip (mass/volume) NORMAL NORMAL Urine leukocyte esterase detection by dipstick 3+ NEGATIVE Automated urine sediment erythrocyte cou nt by microscopy (number/high power field) [HPF] NRG Automated urine sediment leukocyte count by microscopy (number/high power field) [HPF] NRG Bacteria detection in urine sediment by light microsco py LARGE NRG Squamous epithelial cells detection in u rine sediment by light microscopy 0-2 NRG Crystals detection in urine sediment by light microsco py NONE NRG Casts detection in urine sediment by light microscopy NONE NRG Mucus detection in urine sediment by light microscopy NEGATIVE NRG Complete urinalysis with reflex to culture YES NRG Bacterial urine culture - 06/05/19 14:11 Bacterial urine culture [id number] NRG COLONY COUNT >100,000/ML NRG FTX;REPORTABLE SUSCEPTIBILITY REPORTED 06/07/19 11:3 5 NRG FREE TEXT ENTRY 2 ID REPORTED 06/06/19 16:05 NRG Dirithromycin susceptibility test by dis k diffusion - 06/05/19 14:11 Gentamicin susceptibility test by minimum inhibitory c oncentration <= NRG Trimethoprim/sulfamethoxazole susceptibi lity test by minimum inhibitoryconcentration > NRG Levofloxacin susceptibility test by minimum inhibitory concentration > NRG Ampicillin susceptibility test by minimum inhibitory c oncentration > NRG Cefazolin susceptibility test by minimum inhibitory co ncentration 2 NRG Ceftriaxone susceptibility test by minimum inhibitory concentration <= NRG Ciprofloxacin susceptibility test by minimum inhibitor y concentration > NRG Meropenem susceptibility test by minimum inhibitory co ncentration <= NRG Nitrofurantoin susceptibility test by mi nimum inhibitory concentration <= NRG Amoxicillin and clavulanate potassium susc BLANCA = NRG Complete blood count (CBC) with automate d white blood cell (WBC) differential - 06/05/19 14:21 Blood leukocytes automated count (number/volume) 11.2 10*3/uL 4.3-11.0 Blood erythrocytes automated count (number/volume) 4.45 10*6/uL 4.35-5.85 Venous blood hemoglobin measurement (mass/volume) 15.2 g/dL 11.5-16.0 Blood hematocrit (volume fraction) 44 % 35-52 Automated erythrocyte mean corpuscular volume 100 [foz_us] 80-99 Automated erythrocyte mean corpuscular h emoglobin (mass per erythrocyte) 34 pg 25-34 Automated erythrocyte mean corpuscular h emoglobin concentration measurement (mass/volume) 34 g/dL 32-36 Automated erythrocyte distribution width ratio 13. 0 % 10.0- 14.5 Automated blood platelet count (count/volume) 288 10*3/uL 130-400 Automated blood platelet mean volume measurement 9.0 [foz_us] 7.4-10.4 Automated blood neutrophils/100 leukocytes 61 % 42-75 Automated blood lymphocytes/100 leukocytes 30 % 12-44 Blood monocytes/100 leukocytes 7 % 0-12 Automated blood eosinophils/100 leukocytes 1 % 0-10 Automated blood basophils/100 leukocytes 0 % 0-10 Blood neutrophils automated count (number/volume) 6.8 10*3 1.8-7.8 Blood lymphocytes automated count (number/volume) 3.4 10*3 1.0-4.0 Blood monocytes automated count (number/volume) 0. 8 10*3 0.0-1.0 Automated eosinophil count 0.1 10*3/uL 0 .0-0.3 Automated blood basophil count (count/volume) 0.1 10*3/uL 0.0-0.1 Comprehensive metabolic panel - 06/05/19 14:21 Serum or plasma sodium measurement (moles/volume) 138 mmol/L 135-145 Serum or plasma potassium measurement (moles/volume) 3.6 mmol/L 3.6-5.0 Serum or plasma chloride measurement (moles/volume) 105 mmol/L 98-107 Carbon dioxide 24 mmol/L 21-32 Serum or plasma anion gap determination (moles/volume) 9 mmol/L 5-14 Serum or plasma urea nitrogen measurement (mass/volume ) 5 mg/dL 7-18 Serum or plasma creatinine measurement (mass/volume) 0.81 mg/dL 0.60-1.30 Serum or plasma urea nitrogen/creatinine mass ratio 6 NRG Serum or plasma creatinine measurement w ith calculation of estimated glomerular filtration rate > NRG Serum or plasma glucose measurement (mass/volume) 78 mg/dL 70-105 Serum or plasma calcium measurement (mass/volume) 9.2 mg/dL 8.5-10.1 Serum or plasma total bilirubin measurement (mass/volu me) 0.4 mg/dL 0.1-1.0 Serum or plasma alkaline phosphatase nicky surement (enzymatic activity/volume) 58 U/L 40-136 Serum or plasma aspartate aminotransfera se measurement (enzymatic activity/volume) 21 U/L 5-34 Serum or plasma alanine aminotransferase measurement (enzymatic activity/volume) 15 U/L 0-55 Serum or plasma protein measurement (mass/volume) 6.9 g/dL 6.4-8.2 Serum or plasma albumin measurement (mass/volume) 4.1 g/dL 3.2-4.5 CALCIUM CORRECTED 9.1 mg/dL 8.5-10.1 Complete urinalysis with reflex to cultu re - 09/03/19 09:05 Urine color determination YELLOW NRG Urine clarity determination CLEAR NR G Urine pH measurement by test strip 8 5-9 Specific gravity of urine by test strip 1.015 1.016-1.022 Urine protein assay by test strip, semi-quantitative NEGATIVE NEGATIVE Urine glucose detection by automated test strip NE GATIVE NEGATIVE Erythrocytes detection in urine sediment by light micr oscopy 3+ NEGATIVE Urine ketones detection by automated test strip NE GATIVE NEGATIVE Urine nitrite detection by test strip NEGATIVE NEGATIVE Urine total bilirubin detection by test strip NEGA TIVE NEGATIVE Urine urobilinogen measurement by automated test strip (mass/volume) NORMAL NORMAL Urine leukocyte esterase detection by dipstick 3+ NEGATIVE Automated urine sediment erythrocyte cou nt by microscopy (number/high power field) [HPF] NRG Automated urine sediment leukocyte count by microscopy (number/high power field) > [HPF] NRG Bacteria detection in urine sediment by light microsco py FEW NRG Squamous epithelial cells detection in u rine sediment by light microscopy 0-2 NRG Crystals detection in urine sediment by light microsco py NONE NRG Casts detection in urine sediment by light microscopy NONE NRG Mucus detection in urine sediment by light microscopy NEGATIVE NRG Complete urinalysis with reflex to culture YES NRG Bacterial urine culture - 09/03/19 09:05 Bacterial urine culture [id number] NRG COLONY COUNT >100,000/ML NRG FTX;REPORTABLE SUSCEPTIBILITY REPORTED 09/05 09:35 NRG Dirithromycin susceptibility test by dis k diffusion - 09/03/19 09:05 Gentamicin susceptibility test by minimum inhibitory c oncentration <= NRG Trimethoprim/sulfamethoxazole susceptibi lity test by minimum inhibitoryconcentration > NRG Levofloxacin susceptibility test by minimum inhibitory concentration > NRG Ampicillin susceptibility test by minimum inhibitory c oncentration > NRG Cefazolin susceptibility test by minimum inhibitory co ncentration 2 NRG Ceftriaxone susceptibility test by minimum inhibitory concentration <= NRG Ciprofloxacin susceptibility test by minimum inhibitor y concentration > NRG Meropenem susceptibility test by minimum inhibitory co ncentration <= NRG Nitrofurantoin susceptibility test by mi nimum inhibitory concentration <= NRG Amoxicillin and clavulanate potassium susc BLANCA = NRG Complete blood count (CBC) with automate d white blood cell (WBC) differential - 09/03/19 09:10 Blood leukocytes automated count (number/volume) 9.3 10*3/uL 4.3-11.0 Blood erythrocytes automated count (number/volume) 4.65 10*6/uL 4.35-5.85 Venous blood hemoglobin measurement (mass/volume) 15.5 g/dL 11.5-16.0 Blood hematocrit (volume fraction) 46 % 35-52 Automated erythrocyte mean corpuscular volume 98 [ foz_us] 80-99 Automated erythrocyte mean corpuscular h emoglobin (mass per erythrocyte) 33 pg 25-34 Automated erythrocyte mean corpuscular h emoglobin concentration measurement (mass/volume) 34 g/dL 32-36 Automated erythrocyte distribution width ratio 12. 4 % 10.0- 14.5 Automated blood platelet count (count/volume) 284 10*3/uL 130-400 Automated blood platelet mean volume measurement 9.8 [foz_us] 7.4-10.4 Automated blood neutrophils/100 leukocytes 65 % 42-75 Automated blood lymphocytes/100 leukocytes 27 % 12-44 Blood monocytes/100 leukocytes 7 % 0-12 Automated blood eosinophils/100 leukocytes 1 % 0-10 Automated blood basophils/100 leukocytes 0 % 0-10 Blood neutrophils automated count (number/volume) 6.0 10*3 1.8-7.8 Blood lymphocytes automated count (number/volume) 2.5 10*3 1.0-4.0 Blood monocytes automated count (number/volume) 0. 7 10*3 0.0-1.0 Automated eosinophil count 0.1 10*3/uL 0 .0-0.3 Automated blood basophil count (count/volume) 0.0 10*3/uL 0.0-0.1 Comprehensive metabolic panel - 09/03/19 09:10 Serum or plasma sodium measurement (moles/volume) 137 mmol/L 135-145 Serum or plasma potassium measurement (moles/volume) 3.8 mmol/L 3.6-5.0 Serum or plasma chloride measurement (moles/volume) 103 mmol/L 98-107 Carbon dioxide 23 mmol/L 21-32 Serum or plasma anion gap determination (moles/volume) 11 mmol/L 5-14 Serum or plasma urea nitrogen measurement (mass/volume ) 5 mg/dL 7-18 Serum or plasma creatinine measurement (mass/volume) 0.77 mg/dL 0.60-1.30 Serum or plasma urea nitrogen/creatinine mass ratio 6 NRG Serum or plasma creatinine measurement w ith calculation of estimated glomerular filtration rate > NRG Serum or plasma glucose measurement (mass/volume) 89 mg/dL 70-105 Serum or plasma calcium measurement (mass/volume) 9.3 mg/dL 8.5-10.1 Serum or plasma total bilirubin measurement (mass/volu me) 0.5 mg/dL 0.1-1.0 Serum or plasma alkaline phosphatase nicky surement (enzymatic activity/volume) 46 U/L 40-136 Serum or plasma aspartate aminotransfera se measurement (enzymatic activity/volume) 21 U/L 5-34 Serum or plasma alanine aminotransferase measurement (enzymatic activity/volume) 14 U/L 0-55 Serum or plasma protein measurement (mass/volume) 6.9 g/dL 6.4-8.2 Serum or plasma albumin measurement (mass/volume) 4.1 g/dL 3.2-4.5 CALCIUM CORRECTED 9.2 mg/dL 8.5-10.1 Complete blood count (CBC) with automate d white blood cell (WBC) differential - 09/29/19 13:30 Blood leukocytes automated count (number/volume) 12.7 10*3/uL 4.3-11.0 Blood erythrocytes automated count (number/volume) 4.25 10*6/uL 4.35-5.85 Venous blood hemoglobin measurement (mass/volume) 14.1 g/dL 11.5-16.0 Blood hematocrit (volume fraction) 42 % 35-52 Automated erythrocyte mean corpuscular volume 99 [ foz_us] 80-99 Automated erythrocyte mean corpuscular h emoglobin (mass per erythrocyte) 33 pg 25-34 Automated erythrocyte mean corpuscular h emoglobin concentration measurement (mass/volume) 33 g/dL 32-36 Automated erythrocyte distribution width ratio 13. 0 % 10.0- 14.5 Automated blood platelet count (count/volume) 266 10*3/uL 130-400 Automated blood platelet mean volume measurement 9.4 [foz_us] 7.4-10.4 Automated blood neutrophils/100 leukocytes 69 % 42-75 Automated blood lymphocytes/100 leukocytes 26 % 12-44 Blood monocytes/100 leukocytes 4 % 0-12 Automated blood eosinophils/100 leukocytes 1 % 0-10 Automated blood basophils/100 leukocytes 0 % 0-10 Blood neutrophils automated count (number/volume) 8.8 10*3 1.8-7.8 Blood lymphocytes automated count (number/volume) 3.3 10*3 1.0-4.0 Blood monocytes automated count (number/volume) 0. 5 10*3 0.0-1.0 Automated eosinophil count 0.2 10*3/uL 0 .0-0.3 Automated blood basophil count (count/volume) 0.0 10*3/uL 0.0-0.1 PT panel in platelet poor plasma by coag ulation assay - 09/29/19 13:30 Prothrombin time (PT) in platelet poor plasma by coagu lation assay 12.1 s 12.2-14.7 INR in platelet poor plasma or blood by coagulation as say 0.9 0.8-1.4 Activated partial thromboplastin time (a PTT) in platelet poor plasma bycoagulation assay - 09/29/19 13:30 Activated partial thromboplastin time (a PTT) in platelet poor plasma bycoagulation assay 28 s 24-35 Fibrin D-dimer FEU measurement in platel et poor plasma (mass/volume) - 09/29/19 13:30 Fibrin D-dimer FEU measurement in platelet poor plasma (mass/volume) 0.34 ug/mL 0.00-0.49 Comprehensive metabolic panel - 09/29/19 13:30 Serum or plasma sodium measurement (moles/volume) 140 mmol/L 135-145 Serum or plasma potassium measurement (moles/volume) 3.5 mmol/L 3.6-5.0 Serum or plasma chloride measurement (moles/volume) 107 mmol/L 98-107 Carbon dioxide 23 mmol/L 21-32 Serum or plasma anion gap determination (moles/volume) 10 mmol/L 5-14 Serum or plasma urea nitrogen measurement (mass/volume ) 4 mg/dL 7-18 Serum or plasma creatinine measurement (mass/volume) 0.81 mg/dL 0.60-1.30 Serum or plasma urea nitrogen/creatinine mass ratio 5 NRG Serum or plasma creatinine measurement w ith calculation of estimated glomerular filtration rate > NRG Serum or plasma glucose measurement (mass/volume) 127 mg/dL 70-105 Serum or plasma calcium measurement (mass/volume) 9.0 mg/dL 8.5-10.1 Serum or plasma total bilirubin measurement (mass/volu me) 0.3 mg/dL 0.1-1.0 Serum or plasma alkaline phosphatase nicky surement (enzymatic activity/volume) 48 U/L 40-136 Serum or plasma aspartate aminotransfera se measurement (enzymatic activity/volume) 20 U/L 5-34 Serum or plasma alanine aminotransferase measurement (enzymatic activity/volume) 18 U/L 0-55 Serum or plasma protein measurement (mass/volume) 6.3 g/dL 6.4-8.2 Serum or plasma albumin measurement (mass/volume) 3.8 g/dL 3.2-4.5 CALCIUM CORRECTED 9.2 mg/dL 8.5-10.1 Serum or plasma troponin i.cardiac measu rement (mass/volume) - 09/29/19 13:30 Serum or plasma troponin i.cardiac measurement (mass/v olume) < ng/mL <0.028 THYROID STIMULATING HORMONE - 09/29/19 1 3:30 THYROID STIMULATING HORMONE 3.32 u[iU]/mL 0.35-4.94 Serum or plasma thyroxine (T4) free sujata urement (mass/volume) - 09/29/19 13:30 Serum or plasma thyroxine (T4) free measurement (mass/ volume) 1.04 ng/dL 0.70-1.48 Capillary blood glucose measurement by g lucometer (mass/volume) - 09/29/19 13:36 Capillary blood glucose measurement by glucometer (mas s/volume) 126 mg/dL 70-110 Complete urinalysis with reflex to cultu re - 09/29/19 14:51 Urine color determination YELLOW NRG Urine clarity determination CLEAR NR G Urine pH measurement by test strip 7.5 5-9 Specific gravity of urine by test strip 1.010 1.016-1.022 Urine protein assay by test strip, semi-quantitative NEGATIVE NEGATIVE Urine glucose detection by automated test strip NE GATIVE NEGATIVE Erythrocytes detection in urine sediment by light micr oscopy NEGATIVE NEGATIVE Urine ketones detection by automated test strip NE GATIVE NEGATIVE Urine nitrite detection by test strip NEGATIVE NEGATIVE Urine total bilirubin detection by test strip NEGA TIVE NEGATIVE Urine urobilinogen measurement by automated test strip (mass/volume) 0.2 mg/dL < = 1.0 Urine leukocyte esterase detection by dipstick NEG ATIVE NEGATIVE Automated urine sediment erythrocyte cou nt by microscopy (number/high power field) NONE NRG Automated urine sediment leukocyte count by microscopy (number/high power field) NONE NRG Bacteria detection in urine sediment by light microsco py NEGATIVE NRG Squamous epithelial cells detection in u rine sediment by light microscopy RARE NRG Crystals detection in urine sediment by light microsco py NONE NRG Casts detection in urine sediment by light microscopy NONE NRG Mucus detection in urine sediment by light microscopy NEGATIVE NRG Complete urinalysis with reflex to culture NO NRG Urine drug screening test - 09/29/19 14: 51 Urine phencyclidine detection by screening method NEGATIVE NEGATIVE Urine benzodiazepines detection by screening method NEGATIVE NEGATIVE Urine cocaine detection NEGATIVE NEGATI VE Urine amphetamines detection by screening method N EGATIVE NEGATIVE Urine methamphetamine detection by screening method NEGATIVE NEGATIVE Urine cannabinoids detection by screening method N EGATIVE NEGATIVE Urine opiates detection by screening method NEGATI VE NEGATIVE Urine barbiturates detection NEGATIVE N EGATIVE Screening urine tricyclic antidepressants detection NEGATIVE NEGATIVE Urine methadone detection by screening method NEGA TIVE NEGATIVE Urine oxycodone detection NEGATIVE NEGA TIVE Urine propoxyphene detection NEGATIVE N EGATIVE Encounters ACCT No. Visit Date/Time Discharge Status Pt. Type Provider Facility Loc./Unit Complaint [id number] 10/19/2019 12:02:00 23:59:59 CLS Outpatient ELY DOBBINS MD [facility] RAD MULTIPLE SCLEROSIS [id number] 09/29/2019 13:16:00 23:59:59 CLS Outpatient DONATO VELOZ APRN [facility] ER POSS STROKE [id number] 09/03/2019 08:54:00 11:05:00 DIS Emergency JANEE TOVAR, GIO Abreu [facility] ER MS FLARE;MUSCLES TENSE; ABD PAIN [id number] 07/05/2019 16:32:00 23:59:59 CLS Preadmit LUKAS TOVAR, RANDI rojo [facility] RAD HISTORY OF STONES [id number] 06/05/2019 14:07:00 16:12:00 DIS Emergency CIRILO VASQUEZ [facility] ER R SIDE/GROIN PAIN [id number] 05/29/2019 12:50:00 23:59:59 CLS Preadmit ELY DOBBINS MD [facility] RAD SCREENING [id number] 05/20/2019 18:51:00 20:08:00 DIS Emergency DONATO VELOZ APRN [facility] ER PASSING KIDNEY STONE [id number] 05/08/2019 08:23:00 019 23:59:59 CLS Preadmit MU TOVAR, ELY Hudson [facility] RAD PELVIC PAIN [id number] 05/01/2019 19:10:00 019 21:24:00 DIS Emergency TRACY TOVAR, IRINA Bennett [facility] ER FALL,R SIDED LEG PAIN [id number] 01/05/2019 15:39:00 019 18:32:00 DIS Emergency CIRILO VASQUEZ [facility] ER FREQUENT URINATION,LOWE R ABD PAIN [id number] 12/18/2018 17:40:00 019 19:30:00 DIS Emergency DONATO VELOZ 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 [facility] ER UPPER STOMACH/CHEST RHYS N/SOB [id number] 07/19/2018 19:03:00 018 22:32:00 DIS Emergency MANOLO TOVAR, ANDREI Ball [facility] ER CHEST PAIN/SHAKY/WEAKNESS/COUGH [id number] 09/01/2017 15:39:00 017 23:59:59 CLS Outpatient RANDA MORAN TUBE MAKING MACHINE OPERATOR [facility] RAD PAIN LATERAL ED GE OF LEFT ANKLE [id number] 08/08/2017 13:35:00 017 14:30:00 DIS Emergency SUMAYA TOVAR, MADIE Costa [facility] ER NO MEDS FOR 1 M O/LUPUS [id number] 06/23/2017 20:43:00 017 23:00:00 DIS Emergency TRACY TOVAR, IRINA Bennett [facility] ER ABD PAIN [id number] 01/27/2017 14:03:00 017 23:59:59 CLS Preadmit ANAIS SETH DO [facility] REHAB CERVICAL DDD AN D B ARM NUMBNESS [id number] 10/16/2016 13:07:00 016 23:59:59 CLS Outpatient ROBERT CASAREZ APRN [facility] RAD RU1.82 [id number] 10/13/2016 16:22:00 016 18:00:00 DIS Emergency DONATO VELOZ APRN [facility] ER HEAD PAIN [id number] 09/13/2015 19:33:00 015 22:16:00 DIS Emergency DONATO VELOZ APRN [facility] ER UNABLE TO URINATE [id number] 07/19/2018 22:06:00 Document Registration
== END 2019-09-29 15:37 | disposition home or self-care (01) ==
LOC: EDUNIT# 13:15 → ER 13:16
DX: G35 Multiple sclerosis (principal); J44.9 Chronic obstructive pulmonary disease, unspecified; E03.9 Hypothyroidism, unspecified; Z88.2 Allergy status to sulfonamides; Z87.39 Personal history of other diseases of the musculoskeletal system and connective tissue; Z79.52 Long term (current) use of systemic steroids; Z77.22 Contact with and (suspected) exposure to environmental tobacco smoke (acute) (chronic); Z90.710 Acquired absence of both cervix and uterus
CPT/HCPCS: 36415; 70450; 70496; 70498; 71045; 80053; 80306; 81000; 82962; 84439; 84443; 84484; 85025; 85379; 85610; 85730; 93005; 93041; 96374; 96375

== ENCOUNTER → 2019-10-19 | Outpatient (CLI) | payer MEDICARE, MEDICAID ==
[~2019-10-19] MED LIST changes: +GADOBUTROL 7.5 MMOL/7.5 ML (GADAVIST) VIAL IV ONE; +PRED10TA22 PO
--- NOTE | 2019-10-19 13:10 | Diagnostic Imaging Report ---
CLINICAL INDICATION: Patient having blurred vision. EXAM: MRI of the brain performed without and with 6 cc of Gadavist IV contrast. Sequences include axial DWI, ADC map, axial gradient echo, axial T2, axial FLAIR, axial T1, axial T1 post IV contrast, coronal T1 fat-sat post IV contrast, and sagittal T1 post IV contrast. COMPARISON: MRI of the brain without contrast dated 10/16/2016. FINDINGS: There is no evidence of acute cerebral infarct, intracranial hemorrhage, or gross mass effect. The brain parenchymal volume appears appropriate for patient's age. There is normal zhao-white matter distinction. There is no significant midline shift or herniation. There is no evidence of hydrocephalus. The basal cisterns are unremarkable. The skull, extracranial soft tissue, and orbits are unremarkable. There is mild mucosal thickening involving the ethmoid sinus, frontal sinus, and right maxillary sinus. There is a moderate amount of fluid in the left mastoid air cells. IMPRESSION: 1: There is mild paranasal sinus disease and moderate amount of fluid in the left mastoid air cells. 2: Otherwise, unremarkable MRI of the brain. There is no abnormal IV contrast enhancement. Dictated by: Dictated on workstation # [id number]
== END ==
LOC: RAD 12:02
PROVIDERS: ATTEND Internal Medicine
DX: G35 Multiple sclerosis (principal)
CPT/HCPCS: 70553

== ENCOUNTER 2019-12-09 11:23 | Emergency (ER) | payer MEDICAID, MEDICARE ==
[~2019-12-09] VITALS: Ht 178 cm; Wt 64.0 kg
[~2019-12-09 11:23] MED LIST changes: -GADOBUTROL 7.5 MMOL/7.5 ML (GADAVIST) VIAL IV ONE
[2019-12-09 11:31] VITALS: BP 107/70
--- NOTE | 2019-12-09 11:43 | NUR ---
BROUGHT PATIENT BACK BEFORE HER SHE MADE A COMMENT YOU HAVE GOT TO BE KIDDING ME. 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
--- NOTE | 2019-12-09 11:48 | NUR ---
WENT TO GET PT FROM THE WAITING ROOM ET PT ASKED ME IF I WAS THE HEAD NURSE AND I REPLIED NO. PT STATES SHE HAS REQUESTED TO TALK TO THE HEAD NURSE ABOUT THE WAY SHE WAS TREATED IN TRIAGE. PT STATES SHE REQUESTED A WHEEL CHAIR. ASKED HER IF I COULD GET HER A WC AND SHE REPLIED "NO, NOT UNTIL I TALK TO THE HEAD NURSE" I THEN ASKED HER IF SHE WANTED TO TALK TO THE SUPERVIOR BEFORE SHE CAME BACK TO THE ER AND SHE REPLIED YES. REANNA - WAREHOUSE SORTER NOTIFIED.
[2019-12-09 12:12] LABS: BILIRUBIN,URINE NEGATIVE (NEGATIVE); CLARITY,URINE CLEAR; COLOR,URINE YELLOW; GLUCOSE, URINE (UA) NEGATIVE (NEGATIVE); KETONES,URINE NEGATIVE (NEGATIVE); LEUKOCYTE ESTERASE ,URINE NEGATIVE (NEGATIVE); NITRITE,URINE NEGATIVE (NEGATIVE); PROTEIN,URINE NEGATIVE (NEGATIVE)
[2019-12-09 12:22] LABS: BACTERIA,URINE TRACE /HPF; WBC,URINE RARE /HPF
--- NOTE | 2019-12-09 12:30 | NUR ---
WHILE DR TRUJILLO WAS TALKING TO PT SHE BECAME UPSET THAT DR ASKED HER IF WHEN SHE SAW HER DR THE LAST TIME WAS IT FOR AN ANNUAL EXAM OR IF SHE WAS SICK. PT THEN DEMANDED TO KNOW THE RESULT OF HER UA AND TO BE GIVEN MEDICATION. LEFT THE ROOM TO FIND OUT THE RESULTS. I THEN REMOVED HER IV WHICH I PLACED WHILE DR WAS IN THE ROOM TALKING TO HER. CAME BACK TO THE ROOM AND TOLD PT HER UA WAS FINE AND PT STATES SHE IS GOING TO LEAVE THEN.
--- OUTSIDE RECORDS SUMMARY | 2019-12-17 12:14 | XMS REPORT | Continuity of Care Document ---
Author Organization Unknown Address Unknown Phone Unavailable Allergies Active Description Code Type Severity Reaction Onset Reported/Identified Relationship to Patient Clinical Status Yes Sulfa (Sulfonamide Antibiotics) [id number] Drug Allergy Unknown N/A 015 Medications [...] 10/13/2016 DONATO VELOZ APRN Ot Z79.899 OTHER DIRECTOR IMAGING (CURRENT) DRUG THERAPY 10/14/2016 DONATO VELOZ APRN Ot F17.210 NICOTINE DEPENDENCE, CIGARETTES, UNCOMPL 10/14/2016 DONATO VELOZ APRN Ot G35 MULTIPLE SCLEROSIS 10/14/2016 DONATO VELOZ APRN Ot J44 .9 CHRONIC OBSTRUCTIVE PULMONARY DISEASE, U 10/14/2016 DONATO VELOZ APRN Ot R51 HEADACHE 10/14/2016 DONATO VELOZ APRN Ot Z79.899 OTHER RESIDENTIAL (CURRENT) DRUG THERAPY 10/18/2016 ROBERT CASAREZ APRN Ot M48.02 SPINAL STENOSIS, CERVICAL REGION 10/18/2016 ROBERT CASAREZ APRN Ot R41.82 ALTERED MENTAL STATUS, UNSPECIFIED 11/17/2016 HERMELINDO, ROBERT N BRIDGE RIGGER Ot M48.02 SPINAL STENOSIS, CERVICAL REGION 11/17/2016 ROBERT CASAREZ BRIDGE RIGGER Ot R41.82 ALTERED MENTAL STATUS, UNSPECIFIED 12/14/2016 ROBERT CASAREZ BRIDGE RIGGER Ot M48.02 SPINAL STENOSIS, CERVICAL REGION 12/14/2016 ROBERT CASAREZ BRIDGE RIGGER Ot R41.82 ALTERED MENTAL STATUS, UNSPECIFIED 06/23/2017 [...] FIDELINA MOLINA MDUS J Ot Z79.899 OTHER DIRECTOR IMAGING (CURRENT) DRUG THERAPY 06/25/2017 IRINA MOLINA MD [...] IRINA MOLINA MD J Ot Z79.899 OTHER RESIDENTIAL (CURRENT) DRUG THERAPY 08/08/2017 SUMAYA TOVAR, MADIE [...] OTHER NONCOMPLIANCE WITH MEDIC 09/26/2017 RANDA MORAN BRIDGE RIGGER Ot M25.572 PAIN IN LEFT ANKLE AND JOINTS OF LEFT FO 05/18/2018 RANDA MORAN BRIDGE RIGGER Ot M25.572 PAIN IN LEFT ANKLE AND JOINTS OF LEFT FO 07/19/2018 ROBERT CASAREZ BRIDGE RIGGER Ot M48.02 SPINAL STENOSIS, CERVICAL REGION 07/19/2018 ROBERT CASAREZ BRIDGE RIGGER Ot R41.82 ALTERED MENTAL STATUS, UNSPECIFIED 07/19/2018 RANDA MORAN BRIDGE RIGGER Ot M25.572 PAIN IN LEFT ANKLE AND JOINTS OF LEFT FO 07/19/2018 ANDREI FRENCH MD Ot E03.9 HYPOTHYROIDISM, UNSPECIFIED 07/19/2018 ANDREI FRENCH MD Ot F41.9 ANXIETY DISORDER, UNSPECIFIED 07/19/2018 ANDREI FRENCH MD, Ot G35 MULTIPLE SCLEROSIS 07/19/2018 ANDREI FRENCH MD, Ot J44.9 CHRONIC OBSTRUCTIVE PULMONARY DISEASE, U 07/19/2018 ANDREI FRENCH MD Ot R07.89 OTHER CHEST PAIN 07/19/2018 ANDREI FRENCH MD, Ot Z79.52 RESIDENTIAL (CURRENT) USE OF SYSTEMIC STER 07/19/2018 ANDREI FRENCH MD Ot Z88.2 ALLERGY STATUS TO SULFONAMIDES STATUS 07/19/2018 ANDREI FRENCH MD Ot Z90.710 ACQUIRED ABSENCE OF BOTH CERVIX AND UTER 07/21/2018 ANDREI FRNECH MD, Ot E03.9 HYPOTHYROIDISM, UNSPECIFIED 07/21/2018 ANDREI FRENCH MD, Ot F41.9 ANXIETY DISORDER, UNSPECIFIED 07/21/2018 ANDREI FRENCH MD, Ot G35 MULTIPLE SCLEROSIS 07/21/2018 ANDREI FRENCH MD, Ot J44.9 CHRONIC OBSTRUCTIVE PULMONARY DISEASE, U 07/21/2018 ANDREI FRENCH MD Ot R07.89 OTHER CHEST PAIN 07/21/2018 ANDREI FRENCH MD Ot Z79.52 RESIDENTIAL (CURRENT) USE OF SYSTEMIC STER 07/21/2018 ANDREI [...] .9 SYSTEMIC LUPUS ERYTHEMATOSUS, UNSPECIFIE 10/07/2018 DONATO VLEOZ APRN Ot R10.13 EPIGASTRIC PAIN 10/07/2018 DONATO [...] DISEASES OF 10/15/2018 DONATO VELOZ APRN Ot Z88 .2 ALLERGY [...] LUPUS ERYTHEMATOSUS, UNSPECIFIE 12/18/2018 VELOZ, PETER J BRIDGE RIGGER Ot M54 .2 CERVICALGIA 12/18/2018 DONATO VELOZ APRN Ot N39 .0 URINARY TRACT INFECTION, SITE NOT SPECIF 12/18/2018 DONATO VELOZ APRN Ot R53 .1 WEAKNESS 12/18/2018 DONATO VELOZ APRN Ot Z79.52 RESIDENTIAL (CURRENT) USE OF SYSTEMIC STER 12/18/2018 DONATO [...] WEAKNESS 12/24/2018 DONATO VELOZ APRN Ot Z79.52 DIRECTOR IMAGING (CURRENT) USE OF SYSTEMIC STER 12/24/2018 DONATO VELOZ APRN Ot Z88 .2 ALLERGY [...] VOMITING, UNSPECIFIED 01/05/2019 RICHA VASQUEZIS Ot Z79.52 DIRECTOR IMAGING (CURRENT) USE OF SYSTEMIC STER 01/05/2019 RICHA [...] VOMITING, UNSPECIFIED 01/08/2019 CHRISTINA CIRILO Ot Z79.52 DIRECTOR IMAGING (CURRENT) USE OF SYSTEMIC STER 01/08/2019 RICHA [...] LUPUS ERYTHEMATOSUS, UNSPECIFIE 05/20/2019 VELOZ, PETER J BRIDGE RIGGER Ot R10.31 RIGHT LOWER QUADRANT PAIN 05/20/2019 DONATO VELOZ BRIDGE RIGGER Ot Z77.22 CNTCT W AND EXPSR TO ENVIRON TOBACCO SMO 05/20/2019 DONATO VELOZ BRIDGE RIGGER Ot Z88 .2 ALLERGY STATUS TO SULFONAMIDES STATUS 05/20/2019 DONATO VELOZ BRIDGE RIGGER Ot Z90.710 ACQUIRED ABSENCE OF BOTH CERVIX AND UTER 05/26/2019 DONATO VELOZ BRIDGE RIGGER Ot E03 .9 HYPOTHYROIDISM, UNSPECIFIED 05/26/2019 DONATO VELOZ BRIDGE RIGGER Ot G35 MULTIPLE SCLEROSIS 05/26/2019 DONATO VELOZ BRIDGE RIGGER Ot J44 .9 CHRONIC OBSTRUCTIVE PULMONARY DISEASE, U 05/26/2019 DONATO VELOZ BRIDGE RIGGER Ot M32 .9 SYSTEMIC LUPUS ERYTHEMATOSUS, UNSPECIFIE 05/26/2019 DONATO VELOZ APRN Ot R10.31 RIGHT LOWER QUADRANT PAIN 05/26/2019 DONATO VELOZ APRN Ot Z77.22 CNTCT W AND EXPSR TO ENVIRON TOBACCO SMO 05/26/2019 DONATO VELOZ APRN Ot Z88 .2 ALLERGY STATUS TO SULFONAMIDES STATUS 05/26/2019 DONATO VELOZ BRIDGE RIGGER Ot Z90.710 ACQUIRED ABSENCE OF BOTH CERVIX [...] TOBACCO SMO 06/05/2019 CIRILO VASQUEZ Ot Z79.52 DIRECTOR IMAGING (CURRENT) USE OF SYSTEMIC STER 06/05/2019 CIRILO [...] TOBACCO SMO 06/14/2019 RICHA VASQUEZIS Ot Z79.52 RESIDENTIAL (CURRENT) USE OF SYSTEMIC STER 06/14/2019 RICHA [...] 09/03/2019 GIO WELLER MD Ot Z79. 52 RESIDENTIAL (CURRENT) USE OF SYSTEMIC STER 09/03/2019 GIO WELLER MD Ot Z88. 2 ALLERGY [...] 09/07/2019 GIO WELLER MD Ot Z79. 52 DIRECTOR IMAGING (CURRENT) USE OF SYSTEMIC STER 09/07/2019 GIO WELLER MD Ot Z88. 2 ALLERGY STATUS TO SULFONAMIDES STATUS 09/07/2019 GIO WELLER MD Ot Z90.710 ACQUIRED ABSENCE OF BOTH CERVIX AND UTER 09/14/2019 GIO WELLER MD Ot E03. 9 HYPOTHYROIDISM, UNSPECIFIED 09/14/2019 JANEE TOVAR, GIO Abreu Ot F17.210 NICOTINE DEPENDENCE, CIGARETTES, UNCOMPL 09/14/2019 GIO WELLER MD Ot G35 MULTIPLE SCLEROSIS 09/14/2019 GIO WELLER MD Ot J44. 9 CHRONIC OBSTRUCTIVE PULMONARY DISEASE, U 09/14/2019 GIO WELLER MD Ot N39. 0 URINARY TRACT INFECTION, SITE NOT SPECIF 09/14/2019 GIO WELLER MD Ot R10. 9 UNSPECIFIED ABDOMINAL PAIN 09/14/2019 GIO WELLER MD Ot Z79. 52 RESIDENTIAL (CURRENT) USE OF SYSTEMIC STER 09/14/2019 GIO WELLER MD Ot Z88. 2 ALLERGY STATUS TO SULFONAMIDES STATUS 09/14/2019 GIO WELLER MD Ot Z90.710 ACQUIRED ABSENCE OF BOTH CERVIX AND UTER 09/29/2019 DONATO VELOZ APRN Ot E03 .9 HYPOTHYROIDISM, UNSPECIFIED 09/29/2019 DONATO VELOZ APRN Ot G35 MULTIPLE SCLEROSIS 09/29/2019 DONATO VELOZ APRN Ot J44 .9 CHRONIC OBSTRUCTIVE PULMONARY DISEASE, U 09/29/2019 DONATO VELOZ APRN Ot R53 .1 WEAKNESS 09/29/2019 DONATO VELOZ APRN Ot Z77.22 CNTCT W AND EXPSR TO ENVIRON TOBACCO SMO 09/29/2019 DONATO VELOZ APRN Ot Z79.52 RESIDENTIAL (CURRENT) USE OF SYSTEMIC STER 09/29/2019 DONATO VELOZ APRN Ot Z87.39 PERSONAL HISTORY OF DISEASES OF THE MS S 09/29/2019 DONATO VELOZ APRN Ot Z88 .2 ALLERGY STATUS TO SULFONAMIDES STATUS 09/29/2019 DONATO VELOZ APRN Ot Z90.710 ACQUIRED ABSENCE [...] SMO 10/04/2019 DONATO VELOZ APRN Ot Z79.52 DIRECTOR IMAGING (CURRENT) USE OF SYSTEMIC STER 10/04/2019 DONATO [...] SMO 10/08/2019 DONATO VELOZ APRN Ot Z79.52 RESIDENTIAL (CURRENT) USE OF SYSTEMIC STER 10/08/2019 DONATO VELOZ APRN Ot Z87.39 PERSONAL HISTORY OF DISEASES OF THE MS S 10/08/2019 DONATO VELOZ APRN Ot Z88 .2 ALLERGY STATUS TO SULFONAMIDES STATUS 10/08/2019 DONATO VELOZ APRN Ot Z90.710 ACQUIRED ABSENCE OF BOTH CERVIX AND UTER 10/22/2019 ELY DOBBINS MD Ot G35 MULTIPLE SCLEROSIS 11/09/2019 ELY DOBBINS MD, Ot G35 MULTIPLE SCLEROSIS Procedures There is [...] culture - 05/20/19 19:12 Bacterial urine culture [id number] NRG COLONY COUNT 60,000 cfu/ml NRG FTX;REPORTABLE [...] culture - 06/05/19 14:11 Bacterial urine culture [id number] NRG COLONY COUNT >100,000/ML NRG FTX;REPORTABLE SUSCEPTIBILITY [...] culture - 09/03/19 09:05 Bacterial urine culture [id number] NRG COLONY COUNT >100,000/ML NRG FTX;REPORTABLE SUSCEPTIBILITY [...] urinalysis with reflex to cultu re - 12/09/19 12:03 Urine color determination YELLOW NRG Urine clarity determination CLEAR NR G Urine pH measurement by test strip 7.0 5-9 Specific gravity of urine by test [...] leukocyte count by microscopy (number/high power field) RARE NRG Bacteria detection in urine sediment by light microsco py TRACE NRG Crystals detection in urine sediment by light microsco py NONE NRG Casts detection in urine sediment by light microscopy NONE NRG Mucus detection in urine sediment by light microscopy NEGATIVE NRG Complete urinalysis with reflex to culture NO NRG Encounters ACCT No. Visit Date/Time Discharge Status Pt. Type Provider Facility Loc./Unit Complaint [id number] 12/09/2019 11:24:00 12:32:00 DIS Emergency KENDRA TRUJILLO DO a [facility] ER HX UTI/DIZZINESS [id number] 10/19/2019 12:02:00 23:59:59 CLS Outpatient ELY DOBBINS MD [facility] RAD MULTIPLE SCLEROSIS [id number] 09/29/2019 13:16:00 23:59:59 CLS Emergency DONATO VELOZ APRN [facility] ER POSS STROKE [id number] 09/03/2019 08:54:00 11:05:00 DIS Emergency GIO WELLER MD [facility] ER MS FLARE;MUSCLES TENSE; ABD PAIN [id number] 07/05/2019 16:32:00 23:59:59 CLS Preadmit LUKAS TOVAR, RANDI rojo [facility] RAD HISTORY OF STONES [id number] 06/05/2019 14:07:00 16:12:00 DIS Emergency CIRILO VASQUEZ [facility] ER R SIDE/GROIN PAIN [id number] 05/29/2019 12:50:00 23:59:59 CLS Preadmit ELY DOBBINS MD [facility] RAD SCREENING [id number] 05/20/2019 18:51:00 20:08:00 DIS Emergency DONATO VELOZ BRIDGE RIGGER [facility] ER PASSING KIDNEY STONE [id number] 05/08/2019 08:23:00 019 23:59:59 CLS Preadmit MU TOVAR, ELY [place] [facility] RAD PELVIC PAIN [id number] 05/01/2019 19:10:00 019 21:24:00 DIS Emergency IRINA MOLINA MD [facility] ER FALL,R SIDED LEG PAIN [id number] 01/05/2019 15:39:00 019 18:32:00 DIS Emergency CIRILO VASQUEZ [facility] ER FREQUENT URINATION,LOWE R ABD PAIN [id number] 12/18/2018 17:40:00 019 19:30:00 DIS Emergency DONATO VELOZ BRIDGE RIGGER [facility] ER PT HAS MS, NECK PAIN, L OSING BLADDER FUNC. [id number] 10/07/2018 18:47:00 018 20:30:00 DIS Emergency DONATO VELOZ APRN [facility] ER UPPER STOMACH/CHEST RHYS N/SOB [id number] 07/19/2018 19:03:00 018 22:32:00 DIS Emergency ANDREI FRENCH MD [facility] ER CHEST PAIN/SHAKY/WEAKNESS/COUGH [id number] 09/01/2017 15:39:00 017 23:59:59 CLS Outpatient RANDA MORAN BRIDGE RIGGER [facility] RAD PAIN LATERAL ED GE OF LEFT ANKLE [id number] 08/08/2017 13:35:00 017 14:30:00 DIS Emergency MADIE SHELL MD [facility] ER NO MEDS FOR 1 M O/LUPUS [id number] 06/23/2017 20:43:00 017 23:00:00 DIS Emergency IRINA MOLINA MD [facility] ER ABD PAIN [id number] 01/27/2017 14:03:00 017 23:59:59 CLS Preadmit ANAIS SETH DO S [facility] REHAB CERVICAL DDD AN D B ARM NUMBNESS [id number] 10/16/2016 13:07:00 016 23:59:59 CLS Outpatient ROBERT CASAREZ APRN [facility] RAD RU1.82 [id number] 10/13/2016 16:22:00 016 18:00:00 DIS Emergency DONATO VELOZ APRN [facility] ER HEAD PAIN [id number] 09/13/2015 19:33:00 015 22:16:00 DIS Emergency DONATO VELOZ APRN [facility] ER UNABLE TO URINATE [id number] 07/19/2018 22:06:00 Document Registration
== END 2019-12-09 12:32 | disposition left against medical advice (07) ==
LOC: EDUNIT# 11:23 → ER 11:24
DX: R30.0 Dysuria (principal); M54.9 Dorsalgia, unspecified; R42 Dizziness and giddiness; Z87.440 Personal history of urinary (tract) infections
CPT/HCPCS: 81000

== ENCOUNTER 2020-03-11 15:16 | Emergency (ER) | payer MEDICARE, MEDICAID ==
[~2020-03-11] VITALS: Ht 172 cm; Wt 68.0 kg
[2020-03-11 15:30] VITALS: BP 119/81
--- NOTE | 2020-03-11 15:34 | ED GU-Female ---
General Stated Complaint: FREQUENT URINATION, ABD AND PELVIC PAIN Source: patient Exam Limitations: no limitations History of Present Illness Date Seen by Provider: March 11, 2020 Time Seen by Provider: 15:33 Initial Comments ER with suprapubic abdominal discomfort, pelvic pain, frequent urination, low back pain. Timing/Duration: just prior to arrival Severity/Quality: moderate Location: suprapubic Radiation: none Activities at Onset: none Sexual [place] History: not active Associated Symptoms: dysuria, polyuria Allergies and Home Medications Allergies Coded Allergies: Sulfa (Sulfonamide Antibiotics) (Verified Allergy, Unknown, 09/13/15) Home Medications Acyclovir 200 Mg Capsule, 200 MG PO DAILY, (Reported) Acyclovir 200 Mg Capsule, 200 MG PO DAILY Prescribed by: DONATO VELOZ on 10/13/16 1750 Carisoprodol 250 Mg Tablet, 250 MG PO TID Prescribed by: DONATO VELOZ on 10/13/16 1750 Cefdinir 300 Mg Capsule, 300 MG PO BID Prescribed by: CIRILO VASQUEZ on 06/05/19 1501 Cefdinir 300 Mg Capsule, 300 MG PO BID Prescribed by: GIO WELLER MD on 09/03/19 1102 Cefdinir 300 Mg Capsule, 300 MG PO BID Prescribed by: DONATO VELOZ on 03/11/20 1602 Cyclobenzaprine HCl 10 Mg Tablet, 10 MG PO Q8H PRN for SPASMS Prescribed by: IRINA MOLINA on 06/23/17 2250 Hydrocodone/Acetaminophen 1 Each Tablet, 1 EACH PO Q6H PRN for PAIN Prescribed by: DONATO VELOZ on 09/13/15 2143 Hydroxychloroquine Sulfate 200 Mg Tablet, 200 MG PO DAILY, (Reported) Levothyroxine Sodium 88 Mcg Tablet, 88 MCG PO DAILY, (Reported) Ondansetron HCl 4 Mg Tab, 4 MG PO Q4H PRN for NAUSEA/VOMITING-1ST LINE Prescribed by: CIRILO VASQUEZ on 01/05/19 182 Paroxetine HCl 20 Mg Tablet, 20 MG PO DAILY, (Reported) Prednisone 10 Mg Tab, 60 MG PO UD 60 mg daily for 2 days then 50 mg daily for 2 days then 40 mg daily for 2 days then 30 mg daily for 2 days then 20mg daily for 2 days then resume normal dose of 10mg daily Prescribed by: DONATO VELOZ on 12/18/18 190 Prednisone 20 Mg Tab, 40 MG PO DAILY Prescribed by: GIO WELLER MD on 09/03/19 110 Prednisone 10 Mg Tab.ds.pk, 10 MG PO DAILY Take 6 tabs(60mg)daily,decrease by 1 tab(10MG)daily. Prescribed by: DONATO VELOZ on 09/29/19 1522 Patient Home Medication List Home Medication List Reviewed: Yes Review of Systems Review of Systems Constitutional: see HPI EENTM: see HPI Respiratory: no symptoms reported Cardiovascular: no symptoms reported Genitourinary: see HPI Musculoskeletal: no symptoms reported Skin: no symptoms reported Psychiatric/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: No Symptoms Reported Endocrine: No Symptoms Reported Past Tlnxfyg-Scttfw-Tcncwu Hx Patient Social History Type Used: Cigarettes 2nd Hand Smoke Exposure: Yes Recent Foreign Travel: No Contact w/Someone Who Travel: No Recent Hopitalizations: No Immunizations Up To Date Tetanus Booster (TDap): Unknown Seasonal Allergies Seasonal Allergies: No Past Medical History Surgeries: Yes Bladder Surgery, Hysterectomy Respiratory: Yes COPD Cardiac: No 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 Multiple Sclerosis 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 oz. 56.104979xd; 20.00 BMI Method:Stated General Appearance: mild distress, thin HEENT: PERRL/EOMI, normal ENT inspection Respiratory: normal breath sounds, no respiratory distress, no accessory muscle use Gastrointestinal: normal bowel sounds, soft, tenderness Neurologic/Psychiatric: alert, normal mood/affect, oriented x 3 Skin: normal color, warm/dry Progress/Results/Core Measures Suspected Sepsis SIRS Temperature: Pulse: Respiratory Rate: Blood Pressure / Mean: Results/Orders Lab Results Laboratory Tests Test 03/11/20 15:33 Range/Units Urine Color YELLOW Urine Clarity SL CLOUDY Urine pH 8.0 5-9 Urine Specific [place] 1.010 L 1.016-1.022 Urine Protein NEGATIVE NEGATIVE Urine Glucose (UA) NEGATIVE NEGATIVE Urine Ketones NEGATIVE NEGATIVE Urine Nitrite NEGATIVE NEGATIVE Urine Bilirubin NEGATIVE NEGATIVE Urine Urobilinogen 0.2 < = 1.0 MG/DL Urine Leukocyte Esterase 3+ H NEGATIVE Urine RBC (Auto) 2+ H NEGATIVE Urine RBC 2-5 H /HPF Urine WBC >100 H /HPF Urine Squamous Epithelial Cells NONE /HPF Urine Crystals NONE /LPF Urine Bacteria FEW H /HPF Urine Casts NONE /LPF Urine Mucus NEGATIVE /LPF Urine Culture Indicated YES My Orders Orders - DONATO VELOZ APRN Ua Culture If Indicated (03/11/20 15:19) Ketorolac Injection (Toradol Injection) (03/11/20 15:45) Orphenadrine Injection (Norflex Injectio (03/11/20 15:45) Phenazopyridine Tablet (Pyridium Tablet) (03/11/20 15:45) Urine Culture (03/11/20 15:33) Cefdinir Capsule (Omnicef Capsule) (03/11/20 16:00) Medications Given in ED Current Medications Medications Dose Ordered Sig/Jens Route Start Time Stop Time Status Last Admin Dose Admin Ketorolac Tromethamine 30 mg ONCE ONCE IM 03/11/20 15:45 03/11/20 15:46 DC 03/11/20 15:42 30 MG Orphenadrine Citrate 60 mg ONCE ONCE IM 03/11/20 15:45 03/11/20 15:46 DC 03/11/20 15:43 60 MG Phenazopyridine HCl 100 mg ONCE ONCE PO 03/11/20 15:45 03/11/20 15:46 DC 03/11/20 15:43 100 MG Vital Signs/I&O 03/11/20 15:30 Temp 37.1 Pulse 98 Resp 16 B/P (MAP) 119/81 (94) Pulse Ox 95 O2 Delivery Room Air Capillary Refill : Departure Impression Primary Impression: Urinary tract infection Qualified Codes: N30.01 - Acute cystitis with hematuria Disposition: HOME, SELF-CARE Condition: Stable Departure-Patient Inst. Decision time for Depature: 16:02 Referrals: ELY DOBBINS MD (PCP/Family) Primary Care Physician Patient Instructions: Urinary Tract Infection, Adult (DC) Add. Discharge Instructions: 1. Follow-up with your doctor this week for recheck 2. Return to ER for any concerns 3. Medication as directed. Scripts Phenazopyridine HCl (Pyridium) 100 Mg Tablet 100 MG PO TID, #6 TAB Prov: DONATO VELOZ APRN 03/11/20 Cefdinir (Cefdinir) 300 Mg Capsule 300 MG PO BID, #14 CAP Prov: DONATO VELOZ APRN 03/11/20 DONATO VELOZ APRN March 11, 2020 15:34
[2020-03-11 15:40] LABS: BILIRUBIN,URINE NEGATIVE (NEGATIVE); COLOR,URINE YELLOW; GLUCOSE, URINE (UA) NEGATIVE (NEGATIVE); KETONES,URINE NEGATIVE (NEGATIVE); LEUKOCYTE ESTERASE ,URINE 3+ (NEGATIVE); NITRITE,URINE NEGATIVE (NEGATIVE); PROTEIN,URINE NEGATIVE (NEGATIVE)
[2020-03-11] MEDS ORDERED: PHENAZOPYRIDINE 100 MG (PYRIDIUM) TABLET PO ONE (15:45)
[2020-03-11] MEDS ORDERED: KETOROLAC 60 MG/2 ML VIAL IM ONE (15:45)
[2020-03-11] MEDS ORDERED: ORPHENADRINE 60 MG/2 ML (NORFLEX) AMP IM ONE (15:45)
[2020-03-11 15:48] LABS: CLARITY,URINE SL CLOUDY
[2020-03-11 15:51] LABS: BACTERIA,URINE FEW /HPF; WBC,URINE >100 /HPF
[2020-03-11] MEDS ORDERED: CEFDINIR 300 MG (OMNICEF) CAP PO ONE (16:00)
[2020-03-11] MEDS ORDERED: CEFD300C3 PO (16:02)
[2020-03-11] MEDS ORDERED: PHEN-639 PO (16:05)
--- OUTSIDE RECORDS SUMMARY | 2020-03-11 19:07 | XMS REPORT | Continuity of Care Document ---
Author Organization Unknown Address Unknown Phone Unavailable Allergies Active Description Code Type Severity Reaction Onset Reported/Identified Relationship to Patient Clinical Status Yes Sulfa (Sulfonamide Antibiotics) [id number] Drug Allergy Unknown N/A 015 Medications [...] 10/13/2016 DONATO VELOZ APRN Ot Z79.899 OTHER SLEEP MANAGER (CURRENT) DRUG THERAPY 10/14/2016 DONATO VELOZ APRN [...] MENTAL STATUS, UNSPECIFIED 11/17/2016 HERMELINDO, ROBERT N DENTAL ASSISTING INSTRUCTOR Ot M48.02 SPINAL STENOSIS, CERVICAL REGION 11/17/2016 ROBERT CASAREZ DENTAL ASSISTING INSTRUCTOR Ot R41.82 ALTERED MENTAL STATUS, UNSPECIFIED 12/14/2016 ROBERT CASAREZ DENTAL ASSISTING INSTRUCTOR Ot M48.02 SPINAL STENOSIS, CERVICAL REGION 12/14/2016 ROBERT CASAREZ DENTAL ASSISTING INSTRUCTOR Ot R41.82 ALTERED MENTAL STATUS, UNSPECIFIED 06/23/2017 [...] FIDELINA MOLINA MDUS J Ot Z79.899 OTHER SLEEP MANAGER (CURRENT) DRUG THERAPY 06/25/2017 IRINA MOLINA MD [...] IRINA MOLINA MD J Ot Z79.899 OTHER CARE HOME (CURRENT) DRUG THERAPY 08/08/2017 SUMAYA TOVAR, MADIE [...] OTHER NONCOMPLIANCE WITH MEDIC 09/26/2017 RANDA MORAN DENTAL ASSISTING INSTRUCTOR Ot M25.572 PAIN IN LEFT ANKLE AND JOINTS OF LEFT FO 05/18/2018 RANDA MORAN DENTAL ASSISTING INSTRUCTOR Ot M25.572 PAIN IN LEFT ANKLE AND JOINTS OF LEFT FO 07/19/2018 ROBERT CASAREZ DENTAL ASSISTING INSTRUCTOR Ot M48.02 SPINAL STENOSIS, CERVICAL REGION 07/19/2018 ROBERT CASAREZ DENTAL ASSISTING INSTRUCTOR Ot R41.82 ALTERED MENTAL STATUS, UNSPECIFIED 07/19/2018 RANDA MORAN DENTAL ASSISTING INSTRUCTOR Ot M25.572 PAIN IN LEFT ANKLE AND JOINTS OF LEFT FO 07/19/2018 ANDREI FRENCH MD Ot E03.9 HYPOTHYROIDISM, UNSPECIFIED 07/19/2018 ANDREI FRENCH MD Ot F41.9 ANXIETY DISORDER, UNSPECIFIED 07/19/2018 ANDREI FRENCH MD, Ot G35 MULTIPLE SCLEROSIS 07/19/2018 ANDREI FRENCH MD, Ot J44.9 CHRONIC OBSTRUCTIVE PULMONARY DISEASE, U 07/19/2018 ANDREI FRENCH MD Ot R07.89 OTHER CHEST PAIN 07/19/2018 ANDREI FRENCH MD, Ot Z79.52 CARE HOME (CURRENT) USE OF SYSTEMIC STER 07/19/2018 ANDREI [...] PAIN 07/21/2018 ANDREI FRENCH MD Ot Z79.52 CARE HOME (CURRENT) USE OF SYSTEMIC STER 07/21/2018 ANDREI [...] LUPUS ERYTHEMATOSUS, UNSPECIFIE 12/18/2018 VELOZ, PETER J DENTAL ASSISTING INSTRUCTOR Ot M54 .2 CERVICALGIA 12/18/2018 DONATO VELOZ APRN Ot N39 .0 URINARY TRACT INFECTION, SITE NOT SPECIF 12/18/2018 DONATO VELOZ APRN Ot R53 .1 WEAKNESS 12/18/2018 DONATO VELOZ APRN Ot Z79.52 CARE HOME (CURRENT) USE OF SYSTEMIC STER 12/18/2018 DONATO [...] WEAKNESS 12/24/2018 DONATO VELOZ APRN Ot Z79.52 SLEEP MANAGER (CURRENT) USE OF SYSTEMIC STER 12/24/2018 DONATO [...] VOMITING, UNSPECIFIED 01/05/2019 RICHA VASQUEZIS Ot Z79.52 SLEEP MANAGER (CURRENT) USE OF SYSTEMIC STER 01/05/2019 RICHA [...] VOMITING, UNSPECIFIED 01/08/2019 CHRISTINA CIRILO Ot Z79.52 SLEEP MANAGER (CURRENT) USE OF SYSTEMIC STER 01/08/2019 RICHA [...] LUPUS ERYTHEMATOSUS, UNSPECIFIE 05/20/2019 VELOZ, PETER J DENTAL ASSISTING INSTRUCTOR Ot R10.31 RIGHT LOWER QUADRANT PAIN 05/20/2019 DONATO VELOZ DENTAL ASSISTING INSTRUCTOR Ot Z77.22 CNTCT W AND EXPSR TO ENVIRON TOBACCO SMO 05/20/2019 DONATO VELOZ DENTAL ASSISTING INSTRUCTOR Ot Z88 .2 ALLERGY STATUS TO SULFONAMIDES STATUS 05/20/2019 DONATO VELOZ DENTAL ASSISTING INSTRUCTOR Ot Z90.710 ACQUIRED ABSENCE OF BOTH CERVIX AND UTER 05/26/2019 DONATO VELOZ DENTAL ASSISTING INSTRUCTOR Ot E03 .9 HYPOTHYROIDISM, UNSPECIFIED 05/26/2019 DONATO VELOZ DENTAL ASSISTING INSTRUCTOR Ot G35 MULTIPLE SCLEROSIS 05/26/2019 DONATO VELOZ DENTAL ASSISTING INSTRUCTOR Ot J44 .9 CHRONIC OBSTRUCTIVE PULMONARY DISEASE, U 05/26/2019 DONATO VELOZ DENTAL ASSISTING INSTRUCTOR Ot M32 .9 SYSTEMIC LUPUS ERYTHEMATOSUS, UNSPECIFIE 05/26/2019 DONATO VELOZ APRN Ot R10.31 RIGHT LOWER QUADRANT PAIN 05/26/2019 DONATO VELOZ APRN Ot Z77.22 CNTCT W AND EXPSR TO ENVIRON TOBACCO SMO 05/26/2019 DONATO VELOZ APRN Ot Z88 .2 ALLERGY STATUS TO SULFONAMIDES STATUS 05/26/2019 DONATO VELOZ DENTAL ASSISTING INSTRUCTOR Ot Z90.710 ACQUIRED ABSENCE OF BOTH CERVIX [...] TOBACCO SMO 06/05/2019 CIRILO VASQUEZ Ot Z79.52 SLEEP MANAGER (CURRENT) USE OF SYSTEMIC STER 06/05/2019 CIRILO [...] TOBACCO SMO 06/14/2019 RICHA VASQUEZIS Ot Z79.52 CARE HOME (CURRENT) USE OF SYSTEMIC STER 06/14/2019 RICHA [...] 09/03/2019 GIO WELLER MD Ot Z79. 52 CARE HOME (CURRENT) USE OF SYSTEMIC STER 09/03/2019 GIO [...] 09/07/2019 GIO WELLER MD Ot Z79. 52 SLEEP MANAGER (CURRENT) USE OF SYSTEMIC STER 09/07/2019 GIO [...] 09/14/2019 GIO WELLER MD Ot Z79. 52 CARE HOME (CURRENT) USE OF SYSTEMIC STER 09/14/2019 GIO [...] SMO 09/29/2019 DONATO VELOZ APRN Ot Z79.52 CARE HOME (CURRENT) USE OF SYSTEMIC STER 09/29/2019 DONATO [...] SMO 10/04/2019 DONATO VELOZ APRN Ot Z79.52 SLEEP MANAGER (CURRENT) USE OF SYSTEMIC STER 10/04/2019 DONATO [...] SMO 10/08/2019 DONATO VELOZ APRN Ot Z79.52 CARE HOME (CURRENT) USE OF SYSTEMIC STER 10/08/2019 DONATO VELOZ APRN Ot Z87.39 PERSONAL HISTORY OF DISEASES OF THE MS S 10/08/2019 DONATO VELOZ APRN Ot Z88 .2 ALLERGY STATUS TO SULFONAMIDES STATUS 10/08/2019 DONATO VELOZ APRN Ot Z90.710 ACQUIRED ABSENCE OF BOTH CERVIX AND UTER 10/22/2019 MU TOVAR, ELY Hudson Ot G35 MULTIPLE SCLEROSIS 11/09/2019 ELY DOBBINS MD Ot G35 MULTIPLE SCLEROSIS 12/09/2019 RONNIE DO, KENDRA K Ot M54.9 DORSALGIA, UNSPECIFIED 12/09/2019 RONNIE DO, KENDRA K Ot R30.0 DYSURIA 12/09/2019 RONNIE DO, KENDRA Jamison Ot R42 DIZZINESS AND GIDDINESS 12/09/2019 RONNIE DO, KENDRA Jamison Ot Z87.440 PERSONAL HISTORY OF URINARY (TRACT) INFE 12/22/2019 RONNIE DO, KENDRA Jamison Ot M54.9 DORSALGIA, UNSPECIFIED 12/22/2019 RONNIE DO, KENDRA Jamison Ot R30.0 DYSURIA 12/22/2019 RONNIE DO, KENDRA Jamison Ot R42 DIZZINESS AND GIDDINESS 12/22/2019 RONNIE DO, KENDRA Jamison Ot Z87.440 PERSONAL HISTORY OF URINARY (TRACT) INFE Procedures There is no data. Results Test [...] culture - 05/20/19 19:12 Bacterial urine culture [id number] NRG COLONY COUNT 60,000 cfu/ml NRG FTX;REPORTABLE [...] culture - 06/05/19 14:11 Bacterial urine culture [id number] NRG COLONY COUNT >100,000/ML NRG FTX;REPORTABLE SUSCEPTIBILITY [...] culture - 09/03/19 09:05 Bacterial urine culture [id number] NRG COLONY COUNT >100,000/ML NRG FTX;REPORTABLE SUSCEPTIBILITY [...] urinalysis with reflex to cultu re - 03/11/20 15:33 Urine color determination YELLOW NRG Urine clarity determination SL CLOUDY N RG Urine pH measurement by test strip 8.0 5-9 Specific gravity of urine by test [...] 1.0 Urine leukocyte esterase detection by dipstick 3+ [...] urinalysis with reflex to culture YES NRG Encounters ACCT No. Visit Date/Time Discharge Status Pt. Type Provider Facility Loc./Unit Complaint [id number] 12/09/2019 11:24:00 12:32:00 DIS Emergency RONNIE DO, KENDRA Jamison Vi [facility] ER HX UTI/DIZZINESS [id number] 10/19/2019 12:02:00 23:59:59 CLS Outpatient ELY DOBBINS MD Via [facility] RAD MULTIPLE SCLEROSIS [id number] 09/29/2019 13:16:00 23:59:59 CLS Emergency DONATO VELOZ APRN Via [facility] ER POSS STROKE [id number] 09/03/2019 08:54:00 11:05:00 DIS Emergency JANEE TOVAR, GIO Abreu [facility] ER MS FLARE;MUSCLES TENSE; ABD PAIN [id number] 07/05/2019 16:32:00 23:59:59 CLS Preadmit LUKAS TOVAR, RANDI rojo [facility] RAD HISTORY OF STONES [id number] 06/05/2019 14:07:00 16:12:00 DIS Emergency CIRILO VASQUEZ Via [facility] ER R SIDE/GROIN PAIN [id number] 05/29/2019 12:50:00 23:59:59 CLS Preadmit ELY DOBBINS MD [facility] RAD SCREENING [id number] 05/20/2019 18:51:00 20:08:00 DIS Emergency DONATO VELOZ APRN [facility] ER PASSING KIDNEY STONE [id number] 05/08/2019 08:23:00 07/09/2 019 23:59:59 CLS Preadmit MU TOVAR, ELY Hudson [facility] RAD PELVIC PAIN [id number] 05/01/2019 19:10:00 019 21:24:00 DIS Emergency TRACY TOVAR, IRINA Bennett [facility] ER FALL,R SIDED LEG PAIN [id number] 01/05/2019 15:39:00 019 18:32:00 DIS Emergency CIRILO VASQUEZ [facility] ER FREQUENT URINATION,LOWE R ABD PAIN [id number] 12/18/2018 17:40:00 019 19:30:00 DIS Emergency DONATO VELOZ DENTAL ASSISTING INSTRUCTOR Via [facility] ER PT HAS MS, NECK PAIN, L OSING BLADDER FUNC. [id number] 10/07/2018 18:47:00 018 20:30:00 DIS Emergency DONATO VELOZ DENTAL ASSISTING INSTRUCTOR [facility] ER UPPER STOMACH/CHEST RHYS N/SOB [id number] 07/19/2018 19:03:00 018 22:32:00 DIS Emergency MANOLO TOVAR, ANDREI Ball [facility] ER CHEST PAIN/SHAKY/WEAKNESS/COUGH [id number] 09/01/2017 15:39:00 017 23:59:59 CLS Outpatient RANDA MORAN DENTAL ASSISTING INSTRUCTOR [facility] RAD PAIN LATERAL ED GE OF LEFT ANKLE [id number] 08/08/2017 13:35:00 017 14:30:00 DIS Emergency MADIE SHELL MD Via [facility] ER NO MEDS FOR 1 M O/LUPUS [id number] 06/23/2017 20:43:00 017 23:00:00 DIS Emergency IRINA MOLINA MD [facility] ER ABD PAIN [id number] 01/27/2017 14:03:00 017 23:59:59 CLS Preadmit ANAIS SETH DO [facility] REHAB CERVICAL DDD AN D B ARM NUMBNESS [id number] 10/16/2016 13:07:00 016 23:59:59 CLS Outpatient SHANNAN CASAREZRADHA Flores APRN [facility] RAD RU1.82 [id number] 10/13/2016 16:22:00 016 18:00:00 DIS Emergency DONATO VELOZ APRN [facility] ER HEAD PAIN [id number] 09/13/2015 19:33:00 015 22:16:00 DIS Emergency DONATO VELOZ APRN [facility] ER UNABLE TO URINATE [id number] 03/11/2020 15:52:00 Document Registration [id number] 07/19/2018 22:06:00 Document Registration
== END 2020-03-11 16:08 | disposition home or self-care (01) ==
LOC: EDUNIT# 15:16 → ER 15:18
DX: N39.0 Urinary tract infection, site not specified (principal); J44.9 Chronic obstructive pulmonary disease, unspecified; E03.9 Hypothyroidism, unspecified; Z88.2 Allergy status to sulfonamides; Z79.52 Long term (current) use of systemic steroids; Z77.22 Contact with and (suspected) exposure to environmental tobacco smoke (acute) (chronic)
CPT/HCPCS: 81000; 87077; 87088; 87186; 99284

== ENCOUNTER 2020-04-02 12:06 | Inpatient (IN) | payer MEDICARE, MEDICAID ==
[~2020-04-02] VITALS: Ht 177.8 cm; Wt 73.0 kg
[~2020-04-02 12:06] MED LIST changes: +PHEN-639 PO
[2020-04-02] MEDS ORDERED: PHENAZOPYRIDINE 100 MG (PYRIDIUM) TABLET PO ONE (12:15)
[2020-04-02] MEDS ORDERED: KETOROLAC 30 MG/ML VIAL IM ONE (12:15)
[2020-04-02] MEDS ORDERED: KETOROLAC 30 MG/ML VIAL IVP STA (12:23)
[2020-04-02] MEDS ORDERED: fentaNYL INJECTION 100 MCG/2 ML AMP IVP STA (12:23)
[2020-04-02] MEDS ORDERED: NS IV 1000 ML 1,000 ML IV STA (12:23)
[2020-04-02 12:32] LABS: BILIRUBIN,URINE NEGATIVE (NEGATIVE); CLARITY,URINE CLEAR; COLOR,URINE YELLOW; GLUCOSE, URINE (UA) NEGATIVE (NEGATIVE); KETONES,URINE NEGATIVE (NEGATIVE); LEUKOCYTE ESTERASE ,URINE 3+ (NEGATIVE); NITRITE,URINE NEGATIVE (NEGATIVE); PH,URINE 6.5 (5-9); PROTEIN,URINE NEGATIVE (NEGATIVE)
[2020-04-02 12:43] LABS: BASOPHILS % (AUTO) 0 % (0-10); EOSINOPHILS # (AUTO) 0.2 10^3/uL (0.0-0.3); EOSINOPHILS % (AUTO) 1 % (0-10); HEMATOCRIT 41 % (35-52); HEMOGLOBIN 13.6 G/DL (11.5-16.0); LYMPHOCYTES # (AUTO) 2.5 X 10^3 (1.0-4.0); LYMPHOCYTES % (AUTO) 19 % (12-44); MEAN CORPUSCULAR HEMOGLOBIN 33 PG (25-34); MEAN CORPUSCULAR HGB CONC 33 G/DL (32-36); MEAN CORPUSCULAR VOLUME 100 FL (80-99); MEAN PLATELET VOLUME 9.2 FL (7.4-10.4); MONOCYTES % (AUTO) 7 % (0-12); NEUTROPHILS # (AUTO) 9.4 X 10^3 (1.8-7.8); NEUTROPHILS % (AUTO) 72 % (42-75); PLATELET COUNT 283 10^3/uL (130-400); RED CELL DISTRIBUTION WIDTH 13.2 % (10.0-14.5); WHITE BLOOD COUNT 13.1 10^3/uL (4.3-11.0)
[2020-04-02 12:43] LABS: BACTERIA,URINE FEW /HPF; RBC,URINE 0-2 /HPF; WBC,URINE >100 /HPF
[2020-04-02 12:50] LABS: ALBUMIN 3.7 GM/DL (3.2-4.5); CHLORIDE 107 MMOL/L (98-107); POTASSIUM 3.9 MMOL/L (3.6-5.0); SODIUM 138 MMOL/L (135-145)
[2020-04-02 12:51] LABS: CALCIUM 8.4 MG/DL (8.5-10.1)
--- NOTE | 2020-04-02 12:51 | ED GU-Female ---
General Chief Complaint: - Urinary Stated Complaint: UTI Nursing Triage Note: PT AMBULATE TO [facility] WITH C/O UTI X3 WEEKS. Nursing Sepsis Screen: No Definite Risk Source: patient Exam Limitations: no limitations History of Present Illness Date Seen by Provider: Apr 02, 2020 Time Seen by Provider: 12:23 Initial Comments Here with report of urinary tract infection that has been ongoing for the last 3 weeks. States that she has been on 3 rounds of antibiotics and has not gone away. 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 States that she has a fair amount of pain that is not getting better. She has taken all of the antibiotics as prescribed. She has been off antibiotics for 2 days now and things have gotten worse again. Has nausea but no vomiting. Denies fevers. Complains of right CVA tenderness and suprapubic abdominal pain. Denies diarrhea. Does have significant dysuria. Timing/Duration: yesterday, getting worse, changing over time, other (3 weeks) Severity/Quality: moderate, burning Location: suprapubic, right flank, vaginal, urethral Radiation: right flank Activities at Onset: none Prior Genitourinary Problems: none Modifying Factors: Worsens With Urinating Associated Symptoms: abdominal pain, dysuria; No fever/chills; lower back pain, nausea/vomiting, urinary frequency Allergies and Home Medications Allergies Coded Allergies: Sulfa (Sulfonamide Antibiotics) (Verified Allergy, Unknown, 09/13/15) Home Medications Acyclovir 200 Mg Capsule, 200 MG PO DAILY, (Reported) Acyclovir 200 Mg Capsule, 200 MG PO DAILY Prescribed by: DONATO VELOZ on 10/13/16 1750 Carisoprodol 250 Mg Tablet, 250 MG PO TID Prescribed by: DONATO VELOZ on 10/13/16 1750 Cefdinir 300 Mg Capsule, 300 MG PO BID Prescribed by: CIRILO VASQUEZ on 06/05/19 1501 Cefdinir 300 Mg Capsule, 300 MG PO BID Prescribed by: GIO WELLER MD on 09/03/19 1102 Cefdinir 300 Mg Capsule, 300 MG PO BID Prescribed by: DONATO VELOZ on 03/11/20 1602 Cyclobenzaprine HCl 10 Mg Tablet, 10 MG PO Q8H PRN for SPASMS Prescribed by: IRINA MOLINA on 06/23/17 2250 Hydrocodone/Acetaminophen 1 Each Tablet, 1 EACH PO Q6H PRN for PAIN Prescribed by: DONATO VELOZ on 09/13/15 2143 Hydroxychloroquine Sulfate 200 Mg Tablet, 200 MG PO DAILY, (Reported) Levothyroxine Sodium 88 Mcg Tablet, 88 MCG PO DAILY, (Reported) Ondansetron HCl 4 Mg Tab, 4 MG PO Q4H PRN for NAUSEA/VOMITING-1ST LINE Prescribed by: CIRILO VASQUEZ on 01/05/19 1827 Paroxetine HCl 20 Mg Tablet, 20 MG PO DAILY, (Reported) Phenazopyridine HCl 100 Mg Tablet, 100 MG PO TID Prescribed by: DONATO VELOZ on 03/11/20 1605 Prednisone 10 Mg Tab, 60 MG PO UD 60 mg daily for 2 days then 50 mg daily for 2 days then 40 mg daily for 2 days then 30 mg daily for 2 days then 20mg daily for 2 days then resume normal dose of 10mg daily Prescribed by: DONATO VELOZ on 12/18/18 1907 Prednisone 20 Mg Tab, 40 MG PO DAILY Prescribed by: GIO WELLER MD on 09/03/19 1102 Prednisone 10 Mg Tab.ds.pk, 10 MG PO DAILY Take 6 tabs(60mg)daily,decrease by 1 tab(10MG)daily. Prescribed by: DONATO VELOZ on 09/29/19 1522 Patient Home Medication List Home Medication List Reviewed: Yes Review of Systems Review of Systems Constitutional: see HPI; No chills, No fever EENTM: no symptoms reported Respiratory: no symptoms reported Cardiovascular: no symptoms reported Gastrointestinal: No diarrhea; nausea; No vomiting Genitourinary: dysuria, frequency : No Musculoskeletal: see HPI Skin: no symptoms reported All Other Systemes Reviewed Negative Unless Noted: Yes Past Ihsskez-Dudyib-Vsaisi Hx Past Med/Social Hx: Reviewed Nursing Past Med/Soc Hx Patient Social History Alcohol Use: Denies Use Recreational Drug Use: No Smoking Status: Current Everyday Smoker Type Used: Cigarettes 2nd Hand Smoke Exposure: Yes Recent Foreign Travel: No Contact w/Someone Who Travel: No Recent Infectious Disease Expo: No Recent Hopitalizations: No Physical Abuse: No Sexual Abuse: No Mistreated: No Fear: No Immunizations Up To Date Tetanus Booster (TDap): Unknown Seasonal Allergies Seasonal Allergies: No Past Medical History Surgeries: Yes Bladder Surgery, Hysterectomy Respiratory: Yes COPD Cardiac: No 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 Multiple Sclerosis [employer] History: Menopausal Genitourinary: Yes (bladder issues related to mesh, chronic abdominal pelvic pain) Gastrointestinal: No Musculoskeletal: Yes Chronic Back Pain Endocrine: Yes Hypothyroidsim, Lupus HEENT: No Cancer: No Psychosocial: No Integumentary: No Blood Disorders: No Family Medical History Reviewed Nursing Family Hx Physical Exam Vital Signs Vital Signs - First Documented 04/02/20 12:12 Temp 37.0 Pulse 87 Resp 18 B/P (MAP) 113/73 (86) O2 Delivery Room Air Capillary Refill : Less Than 3 Seconds Height, Weight, BMI Height: 5'10.00" Weight: 125lbs. oz. 56.312599qn; 20.00 BMI Method:Stated General Appearance: WD/WN, mild distress HEENT: PERRL/EOMI, pharynx normal Neck: full range of motion, supple Cardiovascular: regular rate, rhythm, no murmur Respiratory: lungs clear, normal breath sounds Gastrointestinal: soft, tenderness (suprapubic) Back: normal inspection, no vertebral tenderness, CVA tenderness (R); No CVA tenderness (L) Extremities: normal range of motion, non-tender Neurologic/Psychiatric: alert, oriented x 3 Skin: normal color, warm/dry Focused Exam Lactate Level 04/02/20 13:47: Lactic Acid Level 0.60 Lactic Acid Level Laboratory Tests Test 04/02/20 13:47 Lactic Acid Level 0.60 MMOL/L (0.50-2.00) Progress/Results/Core Measures Suspected Sepsis Recent Fever Within 48 Hours: No Infection Criteria Present: None New/Unexplained Altered Menta: No Sepsis Screen: No Definite Risk SIRS Temperature: Pulse: 87 Respiratory Rate: 18 Laboratory Tests 04/02/20 12:34: White Blood Count 13.1H Blood Pressure 113 /73 Mean: 86 04/02/20 13:47: Lactic Acid Level 0.60 Laboratory Tests 04/02/20 12:34: Creatinine 0.70, Platelet Count 283, Total Bilirubin 0.2 Results/Orders Lab Results Laboratory Tests Test 04/02/20 12:16 04/02/20 12:34 04/02/20 13:47 Range/Units Urine Color YELLOW Urine Clarity CLEAR Urine pH 6.5 5-9 Urine Specific Bowman <=1.005 1.016-1.022 Urine Protein NEGATIVE NEGATIVE Urine Glucose (UA) NEGATIVE NEGATIVE Urine Ketones NEGATIVE NEGATIVE Urine Nitrite NEGATIVE NEGATIVE Urine Bilirubin NEGATIVE NEGATIVE Urine Urobilinogen 0.2 < = 1.0 MG/DL Urine Leukocyte Esterase 3+ H NEGATIVE Urine RBC (Auto) 1+ H NEGATIVE Urine RBC 0-2 /HPF Urine WBC >100 H /HPF Urine Crystals NONE /LPF Urine Bacteria FEW H /HPF Urine Casts NONE /LPF Urine Mucus NEGATIVE /LPF Urine Culture Indicated YES White Blood Count 13.1 H 4.3-11.0 10^3/uL Red Blood Count 4.11 L 4.35-5.85 10^6/uL Hemoglobin 13.6 11.5-16.0 G/DL Hematocrit 41 35-52 % Mean Corpuscular Volume 100 H 80-99 FL Mean Corpuscular Hemoglobin 33 25-34 PG Mean Corpuscular Hemoglobin Concent 33 32-36 G/DL Red Cell Distribution Width 13.2 10.0-14.5 % Platelet Count 283 130-400 10^3/uL Mean Platelet Volume 9.2 7.4-10.4 FL Neutrophils (%) (Auto) 72 42-75 % Lymphocytes (%) (Auto) 19 12-44 % Monocytes (%) (Auto) 7 0-12 % Eosinophils (%) (Auto) 1 0-10 % Basophils (%) (Auto) 0 0-10 % Neutrophils # (Auto) 9.4 H 1.8-7.8 X 10^3 Lymphocytes # (Auto) 2.5 1.0-4.0 X 10^3 Monocytes # (Auto) 1.0 0.0-1.0 X 10^3 Eosinophils # (Auto) 0.2 0.0-0.3 10^3/uL Basophils # (Auto) 0.0 0.0-0.1 10^3/uL Sodium Level 138 135-145 MMOL/L Potassium Level 3.9 3.6-5.0 MMOL/L Chloride Level 107 98-107 MMOL/L Carbon Dioxide Level 22 21-32 MMOL/L Anion Gap 9 5-14 MMOL/L Blood Urea Nitrogen 6 L 7-18 MG/DL Creatinine 0.70 0.60-1.30 MG/DL Estimat Glomerular Filtration Rate > 60 BUN/Creatinine Ratio 9 Glucose Level 79 70-105 MG/DL Calcium Level 8.4 L 8.5-10.1 MG/DL Corrected Calcium 8.6 8.5-10.1 MG/DL Total Bilirubin 0.2 0.1-1.0 MG/DL Aspartate Amino Transf (AST/SGOT) 34 5-34 U/L Alanine Aminotransferase (ALT/SGPT) 41 0-55 U/L Alkaline Phosphatase 44 40-136 U/L C-Reactive Protein High Sensitivity 0.07 0.00-0.50 MG/DL Total Protein 6.2 L 6.4-8.2 GM/DL Albumin 3.7 3.2-4.5 GM/DL Lactic Acid Level 0.60 0.50-2.00 MMOL/L My Orders Orders - ANDREI FRENCH MD Cbc With Automated Diff (04/02/20 12:23) Comprehensive Metabolic Panel (04/02/20 12:23) Hs C Reactive Protein (04/02/20 12:23) Fentanyl Injection (Sublimaze Injection (04/02/20 12:23) Ketorolac Injection (Toradol Injection) (04/02/20 12:23) Ns Iv 1000 Ml (Sodium Chloride 0.9%) (04/02/20 12:23) Lactic Acid Analyzer (04/02/20 13:38) Blood Culture (04/02/20 13:38) Meropenem (Merrem 500 Mg) (04/02/20 14:30) Vancomycin Injection (Vancomycin Injecti (04/02/20 14:30) Nicotine Patch (Nicoderm Patch) (04/02/20 14:30) Medications Given in ED Current Medications Medications Dose Ordered Sig/Jens Route Start Time Stop Time Status Last Admin Dose Admin Phenazopyridine HCl 100 mg ONCE ONCE PO 04/02/20 12:15 04/02/20 12:16 DC 04/02/20 12:44 100 MG Vital Signs/I&O 04/02/20 12:12 Temp 37.0 Pulse 87 Resp 18 B/P (MAP) 113/73 (86) O2 Delivery Room Air Capillary Refill : Less Than 3 Seconds Blood Pressure Mean: 86 Progress Note : Progress Note Seen and evaluated. IV, labs, UA, those saline 1 L bolus, fentanyl 50 g IV and Toradol 30 mg IV ordered. Monitor patient. 1425: I discussed the case with Dr. Gordon. Patient has persistent urinary tract infection with elevated white count. Given 3 weeks of failed outpatient treatment and history of scar tissue, we both agree that patient will require inpatient admission. We will initiate meropenem and vancomycin given concerns for resistances. This was discussed with the patient who agrees. She does smoke cigarettes so I have initiated NicoDerm patch and will continue that inpatient. Admit, inpatient status. Patient agrees with plan. Departure Impression Primary Impression: Urinary tract infection Qualified Codes: N30.00 - Acute cystitis without hematuria Disposition: ADMITTED INPATIENT Condition: Stable Admissions Decision to Admit Reason: Admit from ER (General) Decision to Admit/Date: Apr 02, 2020 Time/Decision to Admit Time: 14:25 Departure-Patient Inst. Referrals: ELY DOBBINS MD (PCP/Family) Primary Care Physician ANDREI FRENCH MD Apr 02, 2020 12:51
[2020-04-02 12:53] LABS: GLUCOSE 79 MG/DL (70-105); TOTAL PROTEIN 6.2 GM/DL (6.4-8.2)
[2020-04-02 12:54] LABS: BILIRUBIN,TOTAL 0.2 MG/DL (0.1-1.0); CARBON DIOXIDE 22 MMOL/L (21-32)
[2020-04-02 12:56] LABS: ALKALINE PHOSPHATASE 44 U/L (40-136); GFR ESTIMATED > 60
[2020-04-02 12:57] LABS: BUN/CREATININE RATIO 9
[2020-04-02 12:59] LABS: ALANINE AMINOTRANSFERASE 41 U/L (0-55)
[2020-04-02] MEDS ORDERED: VANCOMYCIN INJECTION 750 MG in NS (IVPB) 100 ML IV ONE (14:30)
[2020-04-02] MEDS ORDERED: NICOTINE 21 MG (NICODERM) PATCH TD ONE (14:30)
[2020-04-02] MEDS ORDERED: MEROPENEM 500 MG in WATER (STERILE) FOR INJECTION 10 ML IV ONE (14:30)
--- OUTSIDE RECORDS SUMMARY | 2020-04-02 15:03 | XMS REPORT | Continuity of Care Document ---
Author Organization Unknown Address Unknown Phone Unavailable Allergies Active Description Code Type Severity Reaction Onset Reported/Identified Relationship to Patient Clinical Status Yes Sulfa (Sulfonamide Antibiotics) [id number] Drug Allergy Unknown N/A 015 Medications [...] 10/13/2016 DONATO VELOZ APRN Ot Z79.899 OTHER MANUFACTURING SUPPORT ENGINEER (CURRENT) DRUG THERAPY 10/14/2016 DONATO VELOZ APRN Ot F17.210 NICOTINE DEPENDENCE, CIGARETTES, UNCOMPL 10/14/2016 DONATO VELOZ APRN Ot G35 MULTIPLE SCLEROSIS 10/14/2016 DONATO VELOZ APRN Ot J44 .9 CHRONIC OBSTRUCTIVE PULMONARY DISEASE, U 10/14/2016 DONATO VELOZ APRN Ot R51 HEADACHE 10/14/2016 DONATO VELOZ APRN Ot Z79.899 OTHER SNF (CURRENT) DRUG THERAPY 10/18/2016 ROBERT CASAREZ APRN Ot M48.02 SPINAL STENOSIS, CERVICAL REGION 10/18/2016 ROBERT CASAREZ APRN Ot R41.82 ALTERED MENTAL STATUS, UNSPECIFIED 11/17/2016 HERMELINDO, ROBERT N INDUSTRIAL COMMERCIAL GROUNDSKEEPER Ot M48.02 SPINAL STENOSIS, CERVICAL REGION 11/17/2016 ROBERT CASAREZ INDUSTRIAL COMMERCIAL GROUNDSKEEPER Ot R41.82 ALTERED MENTAL STATUS, UNSPECIFIED 12/14/2016 ROBERT CASAREZ INDUSTRIAL COMMERCIAL GROUNDSKEEPER Ot M48.02 SPINAL STENOSIS, CERVICAL REGION 12/14/2016 ROBERT CASAREZ INDUSTRIAL COMMERCIAL GROUNDSKEEPER Ot R41.82 ALTERED MENTAL STATUS, UNSPECIFIED 06/23/2017 FIDELINA MOLINA MDUS J Ot F17.210 NICOTINE DEPENDENCE, CIGARETTES, UNCOMPL 06/23/2017 FIDELINA MOLINA MDUS J Ot G35 MULTIPLE SCLEROSIS 06/23/2017 TRACY TOVAR IRINA J Ot L93. 0 DISCOID LUPUS ERYTHEMATOSUS 06/23/2017 FIDELINA MOLINA MDUS J Ot R10. 30 LOWER ABDOMINAL PAIN, UNSPECIFIED 06/23/2017 FIDELINA MOLINA MDUS J Ot R10. 9 UNSPECIFIED ABDOMINAL PAIN 06/23/2017 FIDELINA MOLINA MDUS J Ot R39. 11 HESITANCY OF MICTURITION 06/23/2017 FIDELINA MOLINA MDUS J Ot Z79.899 OTHER MANUFACTURING SUPPORT ENGINEER (CURRENT) DRUG THERAPY 06/25/2017 TRACY TOVAR IRINA J Ot F17.210 NICOTINE DEPENDENCE, CIGARETTES, UNCOMPL 06/25/2017 TRACY TOVAR IRINA J Ot G35 MULTIPLE SCLEROSIS 06/25/2017 TRACY TOVAR IRINA J Ot L93. 0 DISCOID LUPUS ERYTHEMATOSUS 06/25/2017 TRACY TOVAR IRINA J Ot R10. 30 LOWER ABDOMINAL PAIN, UNSPECIFIED 06/25/2017 TRACY TOVAR IRINA J Ot R10. 9 UNSPECIFIED ABDOMINAL PAIN 06/25/2017 TRACY TOVAR IRINA J Ot R39. 11 HESITANCY OF MICTURITION 06/25/2017 TRACY TOVAR IRINA J Ot Z79.899 OTHER SNF (CURRENT) DRUG THERAPY 08/08/2017 MADIE SHELL MD T Ot E03.9 HYPOTHYROIDISM, UNSPECIFIED 08/08/2017 MADIE SHELL MD T Ot F17.210 NICOTINE DEPENDENCE, CIGARETTES, UNCOMPL 08/08/2017 MADIE SHELL MD T Ot G89.29 OTHER CHRONIC PAIN 08/08/2017 MADIE SHELL MD Ot J44.9 CHRONIC OBSTRUCTIVE PULMONARY DISEASE, U 08/08/2017 MAIDE SHELL MD Ot M32.9 SYSTEMIC LUPUS ERYTHEMATOSUS, [...] OTHER NONCOMPLIANCE WITH MEDIC 09/26/2017 RANDA MORAN INDUSTRIAL COMMERCIAL GROUNDSKEEPER Ot M25.572 PAIN IN LEFT ANKLE AND JOINTS OF LEFT FO 05/18/2018 RANDA MORAN INDUSTRIAL COMMERCIAL GROUNDSKEEPER Ot M25.572 PAIN IN LEFT ANKLE AND JOINTS OF LEFT FO 07/19/2018 ROBERT CASAREZ INDUSTRIAL COMMERCIAL GROUNDSKEEPER Ot M48.02 SPINAL STENOSIS, CERVICAL REGION 07/19/2018 ROBERT CASAREZ INDUSTRIAL COMMERCIAL GROUNDSKEEPER Ot R41.82 ALTERED MENTAL STATUS, UNSPECIFIED 07/19/2018 RANDA MORAN INDUSTRIAL COMMERCIAL GROUNDSKEEPER Ot M25.572 PAIN IN LEFT ANKLE AND JOINTS OF LEFT FO 07/19/2018 ANDREI FRENCH MD Ot E03.9 HYPOTHYROIDISM, UNSPECIFIED 07/19/2018 ANDREI FRENCH MD Ot F41.9 ANXIETY DISORDER, UNSPECIFIED 07/19/2018 ANDREI FRENCH MD Ot G35 MULTIPLE SCLEROSIS 07/19/2018 ANDREI FRENCH MD, Ot J44.9 CHRONIC OBSTRUCTIVE PULMONARY DISEASE, U 07/19/2018 ANDREI FRENCH MD Ot R07.89 OTHER CHEST PAIN 07/19/2018 ANDREI FRENCH MD Ot Z79.52 MANUFACTURING SUPPORT ENGINEER (CURRENT) USE OF SYSTEMIC STER 07/19/2018 ANDREI [...] PAIN 07/21/2018 ANDREI FRENCH MD Ot Z79.52 SNF (CURRENT) USE OF SYSTEMIC STER 07/21/2018 ANDREI FRENCH MD Ot Z88.2 ALLERGY STATUS TO SULFONAMIDES STATUS 07/21/2018 ANDREI FRENCH MD Ot Z90.710 ACQUIRED ABSENCE OF BOTH CERVIX AND UTER 10/07/2018 DONATO VELOZ APRN Ot E03 .9 HYPOTHYROIDISM, UNSPECIFIED 10/07/2018 DONATO VELOZ APRN Ot G35 MULTIPLE SCLEROSIS 10/07/2018 DONATO VELOZ APRN, Ot J44 .9 CHRONIC OBSTRUCTIVE PULMONARY DISEASE, [...] LUPUS ERYTHEMATOSUS, UNSPECIFIE 12/18/2018 VELOZ, PETER J INDUSTRIAL COMMERCIAL GROUNDSKEEPER Ot M54 .2 CERVICALGIA 12/18/2018 DONATO VELOZ APRN Ot N39 .0 URINARY TRACT INFECTION, SITE NOT SPECIF 12/18/2018 DONATO VELOZ APRN Ot R53 .1 WEAKNESS 12/18/2018 DONATO VELOZ APRN Ot Z79.52 SNF (CURRENT) USE OF SYSTEMIC STER 12/18/2018 DONATO [...] WEAKNESS 12/24/2018 DONATO VELOZ APRN Ot Z79.52 MANUFACTURING SUPPORT ENGINEER (CURRENT) USE OF SYSTEMIC STER 12/24/2018 DONATO VELOZ APRN Ot Z88 .2 ALLERGY STATUS TO SULFONAMIDES STATUS 12/24/2018 DONATO VELOZ APRN Ot Z90.710 ACQUIRED ABSENCE OF BOTH CERVIX AND UTER 01/05/2019 CIRILO VASQUEZ Ot E03.9 HYPOTHYROIDISM, UNSPECIFIED 01/05/2019 RICHA VASQUEZIS Ot F17.210 NICOTINE DEPENDENCE, CIGARETTES, UNCOMPL 01/05/2019 CIRILO VASQUEZ Ot G35 MULTIPLE SCLEROSIS 01/05/2019 CIRILO VASQUEZ Ot J44.9 CHRONIC OBSTRUCTIVE PULMONARY DISEASE, U 01/05/2019 CIRILO VASQUEZ Ot R10.32 LEFT LOWER QUADRANT PAIN 01/05/2019 CIRILO VASQUEZ Ot R11.2 NAUSEA WITH VOMITING, UNSPECIFIED 01/05/2019 CIRILO VASQUEZ Ot Z79.52 SNF (CURRENT) USE OF SYSTEMIC STER 01/05/2019 CIRILO VASQUEZ Ot Z88.2 ALLERGY STATUS TO SULFONAMIDES STATUS 01/05/2019 RICHA VASQUEZIS Ot Z90.710 ACQUIRED ABSENCE OF BOTH CERVIX AND UTER 01/05/2019 RICHA VASQUEZIS Ot Z98.890 OTHER SPECIFIED POSTPROCEDURAL STATES 01/08/2019 JASONRENARICHAIS Ot E03.9 HYPOTHYROIDISM, UNSPECIFIED 01/08/2019 RICHA VASQUEZIS Ot F17.210 NICOTINE DEPENDENCE, CIGARETTES, UNCOMPL 01/08/2019 CHRISTINACIRILO Ot G35 MULTIPLE SCLEROSIS 01/08/2019 JASONCIRILO CHASE Ot J44.9 CHRONIC OBSTRUCTIVE PULMONARY DISEASE, U 01/08/2019 CHRISTINA CIRILO Ot R10.32 LEFT LOWER QUADRANT PAIN 01/08/2019 CHRISTINA CIRILO Ot R11.2 NAUSEA WITH VOMITING, UNSPECIFIED 01/08/2019 JASONRENA CIRILO Ot Z79.52 MANUFACTURING SUPPORT ENGINEER (CURRENT) USE OF SYSTEMIC STER 01/08/2019 CHRISTINA CIRILO Ot Z88.2 ALLERGY STATUS TO SULFONAMIDES STATUS 01/08/2019 JASONRENA CIRILO Ot Z90.710 ACQUIRED ABSENCE OF BOTH CERVIX AND UTER 01/08/2019 CHRISTINA CIRILO Ot Z98.890 OTHER SPECIFIED POSTPROCEDURAL STATES 05/01/2019 [...] M32 .9 SYSTEMIC LUPUS ERYTHEMATOSUS, UNSPECIFIE 05/20/2019 DONATO VELOZ APRN Ot R10.31 RIGHT LOWER QUADRANT PAIN 05/20/2019 DONATO VELOZ INDUSTRIAL COMMERCIAL GROUNDSKEEPER Ot Z77.22 CNTCT W AND EXPSR TO ENVIRON TOBACCO SMO 05/20/2019 DONATO VELOZ INDUSTRIAL COMMERCIAL GROUNDSKEEPER Ot Z88 .2 ALLERGY STATUS TO SULFONAMIDES STATUS 05/20/2019 DONATO VELOZ INDUSTRIAL COMMERCIAL GROUNDSKEEPER Ot Z90.710 ACQUIRED ABSENCE OF BOTH CERVIX AND UTER 05/26/2019 DONATO VELOZ INDUSTRIAL COMMERCIAL GROUNDSKEEPER Ot E03 .9 HYPOTHYROIDISM, UNSPECIFIED 05/26/2019 DONATO VELOZ INDUSTRIAL COMMERCIAL GROUNDSKEEPER Ot G35 MULTIPLE SCLEROSIS 05/26/2019 DONATO VELOZ INDUSTRIAL COMMERCIAL GROUNDSKEEPER Ot J44 .9 CHRONIC OBSTRUCTIVE PULMONARY DISEASE, U 05/26/2019 DONATO VELOZ INDUSTRIAL COMMERCIAL GROUNDSKEEPER Ot M32 .9 SYSTEMIC LUPUS ERYTHEMATOSUS, UNSPECIFIE 05/26/2019 DONATO VELOZ INDUSTRIAL COMMERCIAL GROUNDSKEEPER Ot R10.31 RIGHT LOWER QUADRANT PAIN 05/26/2019 DONATO VELOZ APRN Ot Z77.22 CNTCT W AND EXPSR TO ENVIRON TOBACCO SMO 05/26/2019 DONATO VELOZ INDUSTRIAL COMMERCIAL GROUNDSKEEPER Ot Z88 .2 ALLERGY STATUS TO SULFONAMIDES STATUS 05/26/2019 DONATO VELOZ INDUSTRIAL COMMERCIAL GROUNDSKEEPER Ot Z90.710 ACQUIRED ABSENCE OF BOTH CERVIX [...] TOBACCO SMO 06/05/2019 CIRILO VASQUEZ Ot Z79.52 SNF (CURRENT) USE OF SYSTEMIC STER 06/05/2019 CIRILO [...] RICHA VASQUEZIS Ot G35 MULTIPLE SCLEROSIS 06/14/2019 CIRILO VASQUEZ Ot J44.9 CHRONIC OBSTRUCTIVE PULMONARY DISEASE, U 06/14/2019 CIRILO VASQUEZ Ot N39.0 URINARY TRACT INFECTION, SITE NOT SPECIF 06/14/2019 CIRILO VASQUEZ Ot R10.9 UNSPECIFIED ABDOMINAL PAIN 06/14/2019 CIRILO VASQUEZ Ot Z77.22 CNTCT W AND EXPSR TO ENVIRON TOBACCO SMO 06/14/2019 RICHA VASQUEZIS Ot Z79.52 MANUFACTURING SUPPORT ENGINEER (CURRENT) USE OF SYSTEMIC STER 06/14/2019 RICHA VASQUEZIS Ot Z87.39 PERSONAL HISTORY OF DISEASES OF THE MS S 06/14/2019 CIRILO VASQUEZ Ot Z88.2 ALLERGY STATUS TO SULFONAMIDES STATUS 06/14/2019 RICHA VASQUEZIS Ot Z90.710 ACQUIRED ABSENCE OF [...] 09/03/2019 GIO WELLER MD Ot Z79. 52 SNF (CURRENT) USE OF SYSTEMIC STER 09/03/2019 GIO [...] 09/07/2019 GIO WELLER MD Ot Z79. 52 SNF (CURRENT) USE OF SYSTEMIC STER 09/07/2019 GIO [...] 09/14/2019 GIO WELLER MD Ot Z79. 52 MANUFACTURING SUPPORT ENGINEER (CURRENT) USE OF SYSTEMIC STER 09/14/2019 GIO [...] SMO 09/29/2019 DONATO VELOZ APRN Ot Z79.52 MANUFACTURING SUPPORT ENGINEER (CURRENT) USE OF SYSTEMIC STER 09/29/2019 DONATO [...] SMO 10/04/2019 DONATO VELOZ APRN Ot Z79.52 MANUFACTURING SUPPORT ENGINEER (CURRENT) USE OF SYSTEMIC STER 10/04/2019 DONATO [...] SMO 10/08/2019 DONATO VELOZ APRN Ot Z79.52 MANUFACTURING SUPPORT ENGINEER (CURRENT) USE OF SYSTEMIC STER 10/08/2019 DONATO [...] Ot R30.0 DYSURIA 12/09/2019 RONNIE DO, KENDRA K Ot R42 DIZZINESS AND GIDDINESS 12/09/2019 RONNIE DO, KENDRA K Ot Z87.440 PERSONAL HISTORY OF URINARY (TRACT) INFE 12/22/2019 RONNIE DO, KENDRA Jamison Ot M54.9 DORSALGIA, UNSPECIFIED 12/22/2019 RONNIE DO, KENDRA K Ot R30.0 DYSURIA 12/22/2019 RONNIE DO, KENDRA K Ot R42 DIZZINESS AND GIDDINESS 12/22/2019 RONNIE DO, KENDRA K Ot Z87.440 PERSONAL HISTORY OF URINARY (TRACT) INFE 03/11/2020 DONATO VELOZ APRN Ot E03 .9 HYPOTHYROIDISM, UNSPECIFIED 03/11/2020 DONATO VELOZ APRN Ot J44 .9 CHRONIC OBSTRUCTIVE PULMONARY DISEASE, U 03/11/2020 DONATO VELOZ APRN Ot N39 .0 URINARY TRACT INFECTION, SITE NOT SPECIF 03/11/2020 DONATO VELOZ APRN Ot R10 .2 PELVIC AND PERINEAL PAIN 03/11/2020 DONATO VELOZ APRN Ot Z77.22 CNTCT W AND EXPSR TO ENVIRON TOBACCO SMO 03/11/2020 DONATO VELOZ APRN Ot Z79.52 MANUFACTURING SUPPORT ENGINEER (CURRENT) USE OF SYSTEMIC STER 03/11/2020 DOANTO VELOZ APRN Ot Z88 .2 ALLERGY STATUS TO SULFONAMIDES STATUS 03/13/2020 DONATO VELOZ APRN Ot E03 .9 HYPOTHYROIDISM, UNSPECIFIED 03/13/2020 DONATO VELOZ APRN Ot J44 .9 CHRONIC OBSTRUCTIVE PULMONARY DISEASE, U 03/13/2020 DONATO VELOZ APRN Ot N39 .0 URINARY TRACT INFECTION, SITE NOT SPECIF 03/13/2020 DONATO VELOZ APRN Ot R10 .2 PELVIC AND PERINEAL PAIN 03/13/2020 DONATO VELOZ APRN Ot Z77.22 CNTCT W AND EXPSR TO ENVIRON TOBACCO SMO 03/13/2020 DONATO VELOZ APRN Ot Z79.52 MANUFACTURING SUPPORT ENGINEER (CURRENT) USE OF SYSTEMIC STER 03/13/2020 DONATO VELOZ APRN Ot Z88 .2 ALLERGY STATUS TO SULFONAMIDES STATUS Procedures There is no data. Results Test [...] culture - 05/20/19 19:12 Bacterial urine culture [id number] NRG COLONY COUNT 60,000 cfu/ml NRG FTX;REPORTABLE [...] culture - 06/05/19 14:11 Bacterial urine culture [id number] NRG COLONY COUNT >100,000/ML NRG FTX;REPORTABLE SUSCEPTIBILITY [...] culture - 09/03/19 09:05 Bacterial urine culture [id number] NRG COLONY COUNT >100,000/ML NRG FTX;REPORTABLE SUSCEPTIBILITY [...] culture YES NRG Bacterial urine culture - 03/11/20 15:33 Bacterial urine culture [id number] NRG COLONY COUNT 10,000 CFU/ML NRG SUSCEPTIBILITY SUSCEPTIBILITY REPORTED 03-13-20,080 5 NRG MRSA SCREEN RML REPORTS MULTI-DRUG RESISTANT NRG RAPID ID ORGANISM (MDRO); CONTACT PRECAUTIONS NRG ID CONFIRMATION SENT TO ER PRINTER 03-13-20, 1616/K D NRG Dirithromycin susceptibility test by dis k diffusion - 03/11/20 15:33 Gentamicin susceptibility test by minimum inhibitory c oncentration <= NRG Trimethoprim/sulfamethoxazole susceptibi lity test by minimum inhibitoryconcentration > NRG Levofloxacin susceptibility test by minimum inhibitory concentration > NRG Tetracycline susceptibility test by minimum inhibitory concentration > [...] by mi nimum inhibitory concentration <= NRG Cefepime susceptibility test by minimum inhibitory con centration <= NRG Ertapenem susceptibility test by minimum inhibitory co ncentration <= NRG Amoxicillin and clavulanate potassium susc BLANCA = NRG Complete urinalysis with reflex to cultu re - 04/02/20 12:16 Urine color determination YELLOW NRG Urine clarity determination CLEAR NR G Urine pH measurement by test strip 6.5 5-9 Specific gravity of urine by test strip <= 1.016-1.022 Urine protein assay by test strip, [...] sediment by light microsco py FEW NRG Crystals detection in urine sediment by light microsco py NONE NRG Casts detection in urine sediment by light microscopy NONE NRG Mucus detection in urine sediment by light microscopy NEGATIVE NRG Complete urinalysis with reflex to culture YES NRG Complete blood count (CBC) with automate d white blood cell (WBC) differential - 04/02/20 12:34 Blood leukocytes automated count (number/volume) 13.1 10*3/uL 4.3-11.0 Blood erythrocytes automated count (number/volume) 4.11 10*6/uL 4.35-5.85 Venous blood hemoglobin measurement (mass/volume) 13.6 g/dL 11.5-16.0 Blood hematocrit (volume fraction) 41 % 35-52 Automated erythrocyte mean corpuscular volume 100 [foz_us] 80-99 Automated erythrocyte mean corpuscular h emoglobin (mass per erythrocyte) 33 pg 25-34 Automated erythrocyte mean corpuscular h emoglobin concentration measurement (mass/volume) 33 g/dL 32-36 Automated erythrocyte distribution width ratio 13. 2 % 10.0- 14.5 Automated blood platelet count (count/volume) 283 10*3/uL 130-400 Automated blood platelet mean volume measurement 9.2 [foz_us] 7.4-10.4 Automated blood neutrophils/100 leukocytes 72 % 42-75 Automated blood lymphocytes/100 leukocytes 19 % 12-44 Blood monocytes/100 leukocytes 7 % 0-12 Automated blood eosinophils/100 leukocytes 1 % 0-10 Automated blood basophils/100 leukocytes 0 % 0-10 Blood neutrophils automated count (number/volume) 9.4 10*3 1.8-7.8 Blood lymphocytes automated count (number/volume) 2.5 10*3 1.0-4.0 Blood monocytes automated count (number/volume) 1. 0 10*3 0.0-1.0 Automated eosinophil count 0.2 10*3/uL 0 .0-0.3 Automated blood basophil count (count/volume) 0.0 10*3/uL 0.0-0.1 Comprehensive metabolic panel - 04/02/20 12:34 Serum or plasma sodium measurement (moles/volume) 138 mmol/L 135-145 Serum or plasma potassium measurement (moles/volume) 3.9 mmol/L 3.6-5.0 Serum or plasma chloride measurement (moles/volume) 107 mmol/L 98-107 Carbon dioxide 22 mmol/L 21-32 Serum or plasma anion gap determination (moles/volume) 9 mmol/L 5-14 Serum or plasma urea nitrogen measurement (mass/volume ) 6 mg/dL 7-18 Serum or plasma creatinine measurement (mass/volume) 0.70 mg/dL 0.60-1.30 Serum or plasma urea nitrogen/creatinine mass ratio 9 NRG Serum or plasma creatinine measurement w ith calculation of estimated glomerular filtration rate > NRG Serum or plasma glucose measurement (mass/volume) 79 mg/dL 70-105 Serum or plasma calcium measurement (mass/volume) 8.4 mg/dL 8.5-10.1 Serum or plasma total bilirubin measurement (mass/volu me) 0.2 mg/dL 0.1-1.0 Serum or plasma alkaline phosphatase nicky surement (enzymatic activity/volume) 44 U/L 40-136 Serum or plasma aspartate aminotransfera se measurement (enzymatic activity/volume) 34 U/L 5-34 Serum or plasma alanine aminotransferase measurement (enzymatic activity/volume) 41 U/L 0-55 Serum or plasma protein measurement (mass/volume) 6.2 g/dL 6.4-8.2 Serum or plasma albumin measurement (mass/volume) 3.7 g/dL 3.2-4.5 CALCIUM CORRECTED 8.6 mg/dL 8.5-10.1 Serum or plasma C reactive protein measu rement (mass/volume) - 04/02/20 12:34 Serum or plasma C reactive protein measurement (mass/v olume) 0.07 mg/dL 0.00-0.50 Blood lactic acid measurement (moles/vol ume) - 04/02/20 13:47 Blood lactic acid measurement (moles/volume) 0.60 mmol/L 0.50-2.00 Encounters ACCT No. Visit Date/Time Discharge Status Pt. Type Provider Facility Loc./Unit Complaint 09/06/17 05/04/2018 16:13:37 05/04/2018 23:5 9:59 CLS Outpatient Haley Rocha [id number] 03/11/2020 15:18:00 16:08:00 DIS Emergency DONATO VELOZ APRN [facility] ER FREQUENT URINATION, ABD AND PELVIC PAIN [id number] 12/09/2019 11:24:00 12:32:00 DIS Emergency KENDRA TRUJILLO DO [facility] ER HX UTI/DIZZINESS [id number] 10/19/2019 12:02:00 23:59:59 CLS Outpatient MU TOVAR, LEY Hudson [facility] RAD MULTIPLE SCLEROSIS [id number] 09/29/2019 13:16:00 23:59:59 CLS Emergency DONATO EVLOZ APRN [facility] ER POSS STROKE [id number] 09/03/2019 08:54:00 11:05:00 DIS Emergency JANEE TOVAR, GIO Abreu [facility] ER MS FLARE;MUSCLES TENSE; ABD PAIN [id number] 07/05/2019 16:32:00 23:59:59 CLS Preadmit LUKAS TOVAR, RANDI Ponce [facility] RAD HISTORY OF STONES [id number] 06/05/2019 14:07:00 16:12:00 DIS Emergency CIRILO VASQUEZ [facility] ER R SIDE/GROIN PAIN [id number] 05/29/2019 12:50:00 23:59:59 CLS Preadmit ELY DOBBINS MD [facility] RAD SCREENING [id number] 05/20/2019 18:51:00 20:08:00 DIS Emergency DONATO VELOZ INDUSTRIAL COMMERCIAL GROUNDSKEEPER [facility] ER PASSING KIDNEY STONE [id number] 05/08/2019 08:23:00 23:59:59 CLS Preadmit ELY DOBBINS MD [facility] RAD PELVIC PAIN [id number] 05/01/2019 19:10:00 21:24:00 DIS Emergency TRACY TOVAR, IRINA Bennett [facility] ER FALL,R SIDED LEG PAIN [id number] 01/05/2019 15:39:00 18:32:00 DIS Emergency CIRILO VASQUEZ [facility] ER FREQUENT URINATION,LOWE R ABD PAIN [id number] 12/18/2018 17:40:00 19:30:00 DIS Emergency DONATO VELOZ APRN [facility] ER PT HAS MS, NECK PAIN, L OSING BLADDER FUNC. [id number] 10/07/2018 18:47:00 20:30:00 DIS Emergency DONATO VELOZ INDUSTRIAL COMMERCIAL GROUNDSKEEPER [facility] ER UPPER STOMACH/CHEST RHYS N/SOB [id number] 07/19/2018 19:03:00 018 22:32:00 DIS Emergency ANDREI FRENCH MD [facility] ER CHEST PAIN/SHAKY/WEAKNESS/COUGH [id number] 09/01/2017 15:39:00 017 23:59:59 CLS Outpatient RANDA MORAN IND[employer]RIAL COMMERCIAL GROUNDSKEEPER [facility] RAD PAIN LATERAL ED GE OF LEFT ANKLE [id number] 08/08/2017 13:35:00 14:30:00 DIS Emergency MADIE SHELL MD [facility] ER NO MEDS FOR 1 M O/LUPUS [id number] 06/23/2017 20:43:00 017 23:00:00 DIS Emergency IRINA MOLINA MD [facility] ER ABD PAIN [id number] 01/27/2017 14:03:00 017 23:59:59 CLS Preadmit HALEY ROCHA DO [facility] REHAB CERVICAL DDD AN D B ARM NUMBNESS [id number] 10/16/2016 13:07:00 016 23:59:59 CLS Outpatient ROBERT CASAREZ INDUSTRIAL COMMERCIAL GROUNDSKEEPER [facility] RAD RU1.82 [id number] 10/13/2016 16:22:00 016 18:00:00 DIS Emergency DONATO VELOZ INDUSTRIAL COMMERCIAL GROUNDSKEEPER [facility] ER HEAD PAIN [id number] 09/13/2015 19:33:00 015 22:16:00 DIS Emergency DONATO VELOZ INDUSTRIAL COMMERCIAL GROUNDSKEEPER [facility] ER UNABLE TO URINATE [id number] 04/02/2020 12:07:[address] Emergency ANDREI FRENCH MD [facility] ER UTI [id number] 07/19/2018 22:06:00 Document Registration
[2020-04-02 16:03] VITALS: BP 111/59
[2020-04-02] MEDS ORDERED: NS IV 1000 ML 1,000 ML ONE (16:05)
[2020-04-02 16:12] VITALS: BP 111/59
[2020-04-02] MEDS ORDERED: CATHETER FLUSH 10 ML SYR IV PRN ×2 (16:15)
[2020-04-02] MEDS ORDERED: IBUPROFEN 600 MG (MOTRIN) TAB PO PRN (16:15)
--- NOTE | 2020-04-02 16:16 | NUR ---
CR 0.70; CR CL > 60; WT 73 KG; VANCO 750 MG GIVEN BY TAO IN ER; GIVE ADDITIONAL VANCO 500 MG IV FOR VANCO 1250 MG BOLUS THEN VANCO 1000 MG IV Q12H X 3 DAYS
[2020-04-02] MEDS: HYDROcodone/APAP 5 MG/325 MG (LORTAB) TAB PO PRN ×2 (16:20→22:45)
--- NOTE | 2020-04-02 16:21 | History & Physical-Hospitalist ---
History of Present Illness HPI/Chief Complaint CC: UTI likely ESBL HPI: This is a 59yoWF clinic patient of [facility] who presents to the ER with UTI symptoms and fever. Lactic acid was normal. Patient sees Dr Branch on a regular basis for recurrent UTI's due to mesh and multiple bladder surgeries in the past. Patient failed Omnicef so I am assuming it is ESBL so placed her on Meropenem and Vanc empirically. Source: patient Exam Limitations: no limitations Date Seen 04/02/20 Time Seen by a Provider: 16:00 Attending Physician Noa Gordon DO PCP Gerardo Figueroa MD Referring Physician Date of Admission Apr 02, 2020 at 14:32 Home Medications & Allergies Home Medications Reviewed patient Home Medication Reconciliation performed by pharmacy medication reconciliations tar processing technician and/or nursing. Patients Allergies have been reviewed. Allergies Allergies Coded Allergies Sulfa (Sulfonamide Antibiotics) (Verified Allergy, Unknown, 09/13/15) Past Ptnhbbk-Cjkrbf-Ylxcuj Hx Past Med/Social Hx: Reviewed Nursing Past Med/Soc Hx, Reviewed and Corrections made Patient Social History Marrital Status: Employed/Student: unemployed (raising 4 grandkids) Alcohol Use: Denies Use Recreational Drug Use: No Smoking Status: Current Everyday Smoker Type Used: Cigarettes 2nd Hand Smoke Exposure: Yes Recent Foreign Travel: No Contact w/other who traveled: No Recent Hopitalizations: No Recent Infectious Disease Expo: No Immunizations Up To Date Tetanus Booster (TDap): Unknown Seasonal Allergies Seasonal Allergies: No Past Medical History Surgeries: Bladder Surgery, Hysterectomy 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: Multiple Sclerosis Menopausal Musculoskeletal: Chronic Back Pain Endocrine: Hypothyroidsim, Lupus History of Blood Disorders: No Family History Reviewed Nursing Family Hx Cardiovascular disease 19 FATHER Congenital disease G8 SISTER (a muscle disease that is hereditary) Diabetes mellitus 19 FATHER Thyroid disease 19 MOTHER Review of Systems Constitutional: see HPI, fever, malaise, weakness Genitourinary: dysuria, frequency, hematuria, incontinence, nocturia, pain Physical Exam Physical Exam Vital Signs Vital Signs - First Documented 04/02/20 04/02/20 12:12 15:40 Temp 37.0 Pulse 87 Resp 18 B/P (MAP) 113/73 (86) Pulse Ox 99 O2 Delivery Room Air Capillary Refill : Less Than 3 Seconds Height, Weight, BMI Height: 5'10.00" Weight: 125lbs. oz. 56.209909gz; 23.09 BMI Method:Stated General Appearance: No Apparent Distress, Chronically ill Eyes: Right Eye Normal Inspection, Right Eye PERRL HEENT: PERRL/EOMI, Normal ENT Inspection, Pharynx Normal, Moist Mucous Membranes Neck: Full Range of Motion, Normal Inspection, Non Tender Respiratory: Chest Non Tender, Lungs Clear, Normal Breath Sounds, No Accessory Muscle Use, No Respiratory Distress Cardiovascular: Regular Rate, Rhythm, No Edema, No Gallop, No JVD, No Murmur, Normal Peripheral Pulses Gastrointestinal: Normal Bowel Sounds, No Organomegaly, No Pulsatile Mass, Non Tender, Soft Back: Normal Inspection, No CVA Tenderness, No Vertebral Tenderness Extremity: Normal Capillary Refill, Normal Inspection, Normal Range of Motion, Non Tender, No Calf Tenderness, No Pedal Edema Neurologic/Psychiatric: Alert, Oriented x3, No Motor/Sensory Deficits, Normal Mood/Affect Skin: Normal Color, Warm/Dry Lymphatic: No Adenopathy Results Results/Procedures Labs Laboratory Tests 04/02/20 12:34 Patient resulted labs reviewed. Assessment/Plan Admission Diagnosis Assessment: Recurrent UTI/Pyelonephritis presumed ESBL h/o bladder surgeries with mesh MS SLE Smoker Plan: Vanc and Meropenem Pain meds IVF UCx Admission Status: Inpatient Order (span 2 midnights) Reason for Inpatient Admission: failed po abx and presumed ESBL Diagnosis/Problems Diagnosis/Problems (1) Urinary tract infection Status: Acute Qualifiers: Urinary tract infection type: acute cystitis Hematuria presence: without hematuria Qualified Codes: N30.00 - Acute cystitis without hematuria (2) Noncompliance Status: Acute (3) Chronic abdominal pain Status: Acute (4) Hypothyroidism Status: Acute NOA GORDON DO Apr 02, 2020 16:21
[2020-04-02] MEDS: NS IV 1000 ML 1,000 ML IV SCH (16:22)
--- NOTE | 2020-04-02 16:27 | NUR ---
Initial Pastoral care visit, I advised pt I would return on 04/03 for another visit.
[2020-04-02] MEDS ORDERED: VANCOMYCIN 500 MG/NS 100 ML IV NR ×2 (16:30)
[2020-04-02] MEDS ORDERED: NICOTINE 21 MG (NICODERM) PATCH TD SCH (16:30)
[2020-04-02] MEDS: ENOXAPARIN 40 MG/0.4 ML (LOVENOX) SYR SC SCH (18:12)
[2020-04-02] MEDS ORDERED: MELATONIN 3 MG TABLET PO PRN (19:30)
[2020-04-02] MEDS ORDERED: ONDANSETRON 4 MG/2 ML (SDV) Z0FRAN IVP PRN (19:30)
[2020-04-02] MEDS ORDERED: CALCIUM CARBONATE 500 MG (TUMS) TAB.CHEW PO PRN (19:30)
[2020-04-02] MEDS ORDERED: diphenhydrAMINE 25 MG TAB (BENADRYL) PO PRN (19:30)
[2020-04-02] MEDS ORDERED: LOPERAMIDE 2 MG (IMODIUM) TABLET PO PRN (19:30)
[2020-04-02] MEDS ORDERED: DOCUSATE SODIUM 100 MG (COLACE) CAP PO PRN (19:30)
[2020-04-02] MEDS ORDERED: BISACODYL 10 MG SUPP (DULCOLAX) PR PRN (19:30)
[2020-04-02] MEDS ORDERED: ONDANSETRON 4 MG (ZOFRAN) ORAL DISSOLVE TAB PO PRN (19:30)
[2020-04-02] MEDS ORDERED: ALPRAZolam 0.25 MG (XANAX) TAB PO PRN (19:30)
[2020-04-02] MEDS ORDERED: ACETAMINOPHEN 500 MG TAB (TYLENOL) PO PRN (19:30)
[2020-04-02 19:49] VITALS: BP 109/51
--- NOTE | 2020-04-02 20:53 | NUR ---
pt was concerned about taking her homes predisone 10mg po hs, and carisoprodol 350mg po tid. Dr cobb contacted regarding pt request for those meds, dr ordered to restart them.
[2020-04-02] MEDS: CARISOPRODOL 350 MG (SOMA) TAB PO SCH (21:41)
[2020-04-02] MEDS: predniSONE 10 MG TAB PO SCH (21:41)
[2020-04-02] MEDS: SENNA W/DOCUSATE (SENOKOT S) TABLET PO SCH (21:42)
[2020-04-02] MEDS: MEROPENEM 500 MG/SWFI 10 ML IV PUSH IV SCH ×2 (21:42)
[2020-04-02 23:26] VITALS: BP 94/60
[2020-04-03] MEDS: MEROPENEM 500 MG/SWFI 10 ML IV PUSH IV SCH ×8 (02:47→21:06)
[2020-04-03 03:57] VITALS: BP 103/56
[2020-04-03] MEDS: VANCOMYCIN 1 GM/NS 250 ML IVPB IV SCH ×4 (04:30→17:30)
[2020-04-03] MEDS: HYDROcodone/APAP 5 MG/325 MG (LORTAB) TAB PO PRN (04:31)
[2020-04-03] MEDS: NS IV 1000 ML 1,000 ML IV SCH ×2 (04:31→21:08)
[2020-04-03 06:13] LABS: BASOPHILS % (AUTO) 1 % (0-10); EOSINOPHILS # (AUTO) 0.1 10^3/uL (0.0-0.3); EOSINOPHILS % (AUTO) 1 % (0-10); HEMATOCRIT 39 % (35-52); LYMPHOCYTES # (AUTO) 1.6 X 10^3 (1.0-4.0); LYMPHOCYTES % (AUTO) 21 % (12-44); MEAN CORPUSCULAR HEMOGLOBIN 34 PG (25-34); MEAN CORPUSCULAR HGB CONC 33 G/DL (32-36); MEAN CORPUSCULAR VOLUME 101 FL (80-99); MEAN PLATELET VOLUME 9.3 FL (7.4-10.4); MONOCYTES # (AUTO) 0.4 X 10^3 (0.0-1.0); MONOCYTES % (AUTO) 5 % (0-12); NEUTROPHILS # (AUTO) 5.5 X 10^3 (1.8-7.8); NEUTROPHILS % (AUTO) 72 % (42-75); PLATELET COUNT 253 10^3/uL (130-400); RED CELL DISTRIBUTION WIDTH 13.3 % (10.0-14.5); WHITE BLOOD COUNT 7.7 10^3/uL (4.3-11.0)
[2020-04-03 06:34] LABS: ALANINE AMINOTRANSFERASE 32 U/L (0-55); ALKALINE PHOSPHATASE 35 U/L (40-136); BILIRUBIN,TOTAL 0.4 MG/DL (0.1-1.0); BUN/CREATININE RATIO 8; CALCIUM 7.7 MG/DL (8.5-10.1); CARBON DIOXIDE 22 MMOL/L (21-32); CHLORIDE 114 MMOL/L (98-107); CREATININE SERUM 0.62 MG/DL (0.60-1.30); GFR ESTIMATED > 60; GLUCOSE 119 MG/DL (70-105); POTASSIUM 4.2 MMOL/L (3.6-5.0); SODIUM 142 MMOL/L (135-145); TOTAL PROTEIN 5.2 GM/DL (6.4-8.2)
--- NOTE | 2020-04-03 06:55 | Progress Note - Hospitalist ---
Subjective HPI/CC On Admission Date Seen by Provider: Apr 03, 2020 Time Seen by Provider: 09:30 CC: UTI likely ESBL HPI: This is a 59yoWF clinic patient of [facility] who presents to the ER with UTI symptoms and fever. Lactic acid was normal. Patient sees Dr Branch on a regular basis for recurrent UTI's due to mesh and multiple bladder surgeries in the past. Patient failed Omnicef so I am assuming it is ESBL so placed her on Me ropenem and Vanc empirically. Subjective/Events-last exam Pt having a migraine Very tearful Having some emesis Pain medication given Awaiting urine culture, presumed ESBL Denies any significant other pain Restarted all of her home meds after I reviewed everything Review of Systems General: Fatigue 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: Other (jolly) Focused Exam Lactate Level 04/02/20 13:47: Lactic Acid Level 0.60 Objective Exam Vital Signs Vital Signs Date Time Temp Pulse Resp B/P (MAP) Pulse Ox O2 Delivery O2 Flow Rate FiO2 04/03/20 20:07 36.0 72 20 108/70 (83) 97 Room Air Capillary Refill : Less Than 3 Seconds General Appearance: WD/WN, Anxious, Chronically ill, Mild Distress Respiratory: Chest Non Tender, Lungs Clear, Normal Breath Sounds, No Accessory Muscle Use, No Respiratory Distress Cardiovascular: Regular Rate, Rhythm, No Edema, No Gallop, No JVD, No Murmur, Normal Peripheral Pulses Neurologic/Psychiatric: Alert, Oriented x3, No Motor/Sensory Deficits, Normal Mood/Affect Results/Procedures Lab Laboratory Tests 04/03/20 05:50 Patient resulted labs reviewed. Assessment/Plan Assessment and Plan Assess & Plan/Chief Complaint Assessment: Recurrent UTI/Pyelonephritis presumed ESBL h/o bladder surgeries with mesh MS SLE Smoker Migraines Hypothyroidism Plan: Vanc and Meropenem Pain meds IVF UCx Diagnosis/Problems Diagnosis/Problems (1) Urinary tract infection Status: Acute Qualifiers: Urinary tract infection type: acute cystitis Hematuria presence: without hematuria Qualified Codes: N30.00 - Acute cystitis without hematuria (2) Noncompliance Status: Acute (3) Chronic abdominal pain Status: Acute (4) Hypothyroidism Status: Acute Clinical Quality Measures DVT/VTE Risk/Contraindication: Risk Factor Score Per Nursin RFS Level Per Nursing on Admit: 2=Moderate GAIL HUMPHREY DO Apr 03, 2020 06:55
[2020-04-03 08:00] VITALS: BP 114/71
[2020-04-03] MEDS ORDERED: SUMAtriptan 50 MG (IMITREX) TAB PO PRN ×2 (09:00→10:30)
[2020-04-03] MEDS: CARISOPRODOL 350 MG (SOMA) TAB PO SCH ×4 (09:16→21:08)
[2020-04-03] MEDS: SENNA W/DOCUSATE (SENOKOT S) TABLET PO SCH ×2 (09:16→21:08)
[2020-04-03] MEDS: NICOTINE 21 MG (NICODERM) PATCH TD SCH (09:17)
[2020-04-03] MEDS: NICOTINE PATCH REMOVAL TP SCH (09:18)
[2020-04-03 09:47] VITALS: BP 114/71
[2020-04-03] MEDS ORDERED: PARO40TA3 PO (09:51)
[2020-04-03] MEDS ORDERED: ALBU18HF2 PO (09:51)
[2020-04-03] MEDS ORDERED: ESTR-141 TD (09:51)
[2020-04-03] MEDS ORDERED: CARI350T27 PO (09:51)
[2020-04-03] MEDS ORDERED: PRD10T PO (09:51)
[2020-04-03] MEDS ORDERED: SUMA100T3 PO (09:53)
[2020-04-03] MEDS ORDERED: RT-ALBUTEROL SULF 2.5 MG/3 ML PRE-MIX VIAL IH PRN (10:15)
[2020-04-03] MEDS ORDERED: ESTRADIOL TD SCH (10:15)
[2020-04-03] MEDS ORDERED: ESTR1PAT76 TD (10:29)
[2020-04-03] MEDS ORDERED: FEXO180T84 PO (10:33)
--- NOTE | 2020-04-03 10:39 | NUR ---
SPOKE WITH THE PT AND WENT THRU THE EXT MED HISTORY TO COMPLETE THE MED REC PT WAS HAVING TROUBLE NAMING THE MEDICATIONS BUT IF I SAID THE NAMES FROM THE EXT MED HISTORY SHE WAS ABLE TO TELL ME HOW/WHEN SHE TAKES IT OTC MEDS: CESAR
[2020-04-03] MEDS ORDERED: ONDANSETRON 4 MG/2 ML (SDV) Z0FRAN IVP ONE (11:45)
[2020-04-03] MEDS ORDERED: PROMETHAZINE INJ 25 MG/ML (PHENERGAN) AMP IM PRN (11:45)
--- NOTE | 2020-04-03 11:54 | NUR ---
CALLED DR HUMPHREY AT 142 -- GOT A ONE TIME ORDER FOR IV ZOFRAN -- DUE TO PT NAUSEA - AND DR HUMPHREY ALSO GAVE AN ORDER FOR IM PHEMERGAN 25 MG Q6HRS PRN
[2020-04-03 12:00] VITALS: BP 123/78
[2020-04-03 16:32] VITALS: BP 121/60
[2020-04-03] MEDS: ENOXAPARIN 40 MG/0.4 ML (LOVENOX) SYR SC SCH (17:30)
[2020-04-03 20:07] VITALS: BP 108/70
[2020-04-03] MEDS ORDERED: PARoxetine 20 MG (PAXIL) TAB ONE (20:46)
[2020-04-03] MEDS ORDERED: LEVOTHYROXINE 88 MCG (LEVOTHORID) TAB ONE (20:47)
[2020-04-03] MEDS ORDERED: predniSONE 10 MG TAB PO SCH (21:00)
[2020-04-03] MEDS ORDERED: HYDROXYCHLOROQUINE 200 MG (PLAQUENIL) TAB PO SCH (21:00)
[2020-04-03] MEDS: predniSONE 10 MG TAB PO SCH (21:09)
[2020-04-04 00:04] VITALS: BP 110/67
[2020-04-04] MEDS: MEROPENEM 500 MG/SWFI 10 ML IV PUSH IV SCH ×4 (02:47→08:18)
[2020-04-04 03:32] VITALS: BP 111/64
[2020-04-04] MEDS: VANCOMYCIN 1 GM/NS 250 ML IVPB IV SCH ×2 (04:53)
[2020-04-04] MEDS: HYDROcodone/APAP 5 MG/325 MG (LORTAB) TAB PO PRN ×2 (04:53→11:46)
[2020-04-04 05:51] LABS: BASOPHILS % (AUTO) 0 % (0-10); EOSINOPHILS % (AUTO) 0 % (0-10); HEMATOCRIT 38 % (35-52); HEMOGLOBIN 12.6 G/DL (11.5-16.0); LYMPHOCYTES # (AUTO) 1.1 X 10^3 (1.0-4.0); LYMPHOCYTES % (AUTO) 15 % (12-44); MEAN CORPUSCULAR HEMOGLOBIN 34 PG (25-34); MEAN CORPUSCULAR HGB CONC 33 G/DL (32-36); MEAN CORPUSCULAR VOLUME 102 FL (80-99); MEAN PLATELET VOLUME 9.4 FL (7.4-10.4); MONOCYTES # (AUTO) 0.4 X 10^3 (0.0-1.0); MONOCYTES % (AUTO) 6 % (0-12); NEUTROPHILS # (AUTO) 5.5 X 10^3 (1.8-7.8); NEUTROPHILS % (AUTO) 78 % (42-75); PLATELET COUNT 223 10^3/uL (130-400); RED CELL DISTRIBUTION WIDTH 13.2 % (10.0-14.5); WHITE BLOOD COUNT 7.1 10^3/uL (4.3-11.0)
[2020-04-04 06:08] LABS: ALANINE AMINOTRANSFERASE 36 U/L (0-55); ALBUMIN 3.1 GM/DL (3.2-4.5); ALKALINE PHOSPHATASE 33 U/L (40-136); BILIRUBIN,TOTAL 0.5 MG/DL (0.1-1.0); BUN/CREATININE RATIO 7; CALCIUM 7.9 MG/DL (8.5-10.1); CARBON DIOXIDE 22 MMOL/L (21-32); CHLORIDE 113 MMOL/L (98-107); CREATININE SERUM 0.59 MG/DL (0.60-1.30); GFR ESTIMATED > 60; GLUCOSE 111 MG/DL (70-105); POTASSIUM 3.8 MMOL/L (3.6-5.0); SODIUM 141 MMOL/L (135-145); TOTAL PROTEIN 5.3 GM/DL (6.4-8.2)
[2020-04-04] MEDS ORDERED: LEVOTHYROXINE 88 MCG (LEVOTHORID) TAB PO SCH (06:30)
[2020-04-04 08:00] VITALS: BP 126/79
[2020-04-04] MEDS: NS IV 1000 ML 1,000 ML IV SCH (08:18)
[2020-04-04] MEDS: NICOTINE 21 MG (NICODERM) PATCH TD SCH (08:18)
[2020-04-04] MEDS: SENNA W/DOCUSATE (SENOKOT S) TABLET PO SCH (08:19)
[2020-04-04] MEDS: NICOTINE PATCH REMOVAL TP SCH (08:25)
[2020-04-04] MEDS: CARISOPRODOL 350 MG (SOMA) TAB PO SCH ×2 (08:25→13:37)
[2020-04-04] MEDS ORDERED: PARoxetine 20 MG (PAXIL) TAB PO SCH ×2 (09:00)
[2020-04-04 11:00] VITALS: BP 109/73
--- NOTE | 2020-04-04 11:01 | NUR ---
"RD ASSESSMENT PMHx: MS; hypothyroidism; lupus PT INTERACTION: Pt was awake and pleasant during nutrition assessment. Pt states current appetite is okay, but was poor yesterday. Note avg PO intake 50% x2d, per chart review. Pt states following a regular diet at home, and has no issues with chewing/swallowing food. Pt states some recent issues with vomiting. Note episode of emesis /, per chart review. Pt states no recent issues with constipation or diarrhea. Note last BM was 04/03, and pt currently on bowel regimen of senna BID; per chart review. Pt states no recent wt changes. Note recent 11# wt gain x1mon, per chart review. ABNORMAL NUTRITION-RELATED LAB VALUES LOW: BUN 4; cr 0.59; Ca 7.9; alkphos 33; Pro 5.3; alb 3.1 HIGH: Cl 113; glu 111; AST 37 Est. kcal needs: 5417-6944 kcal | 25-30 kcal/kg Est. Pro needs: 58-73 g Pro | 0.8-1.0 g Pro/kg PES STATEMENT: Inadequate oral intake (NI-2.1) related to loss of appetite | vomiting as evidenced by pt interview | avg PO intake 50% x2d INTERVENTION: Continue with current diet order of Regular diet. Pt may benefit from nutrition supplementation if PO intake remains low. Will continue to follow and reassess as pt needs, intake, and status change. MONITOR/EVALUATE: PO Intake; Plan of Care; Hydration Status; Weight Status; Lab Values Blank Nath, MS, RD, LD"
--- NOTE | 2020-04-04 12:36 | NUR ---
CM/SS: Visited with pt as to plan for discharge Plan: Pt will return home and have her antibiotics administered on an outpatient basis Summary: Pt is wanting to be discharged home today. Pt is able to go today and is ok to return daily for her antibiotic on an outpatient basis Pt is ok to come daily. She knows that the infusion will only take a very short time. She is able to get here to do it, and does not need a voucher for gas. Pt reports she is raising her grandchildren and they can wait in the car with her while they complete the infusion. She is appreciative so she can return home today.
[2020-04-04] MEDS ORDERED: CFTR1V IJ (12:42)
[2020-04-04] MEDS ORDERED: KETOROLAC 30 MG/ML VIAL IVP ONE (13:45)
[2020-04-04] MEDS ORDERED: cefTRIAXone 1,000 MG/SWFI 10 ML IV PUSH IV SCH ×2 (14:00)
--- NOTE | 2020-04-04 14:14 | Discharge Summary ---
Diagnosis/Chief Complaint Date of Admission Apr 02, 2020 at 14:32 Date of Discharge April 04, 2020 Discharge Date: Apr 04, 2020 Discharge Time: 16:00 Admission Diagnosis Assessment: Recurrent UTI/Pyelonephritis presumed ESBL h/o bladder surgeries with mesh MS SLE Smoker Plan: Vanc and Meropenem Pain meds IVF UCx Primary Care Gerardo Figueroa MD Discharge Diagnosis Pyelonephritis secondary to Escherichia coli sensitive to Rocephin History MS History Lupus History of bladder pen up with mesh and complications derived from the mesh Hypothyroidism (1) Urinary tract infection Status: Acute (2) Noncompliance Status: Acute (3) Chronic abdominal pain Status: Acute (4) Hypothyroidism Status: Acute Discharge Summary Procedures/Consulations Midline IV access Discharge Physical Exam Allergies: Coded Allergies: Sulfa (Sulfonamide Antibiotics) (Verified Allergy, Unknown, 09/13/15) Vitals & I&Os Vital Signs Date Time Temp Pulse Resp B/P (MAP) Pulse Ox O2 Delivery O2 Flow Rate FiO2 04/04/20 11:00 36.3 85 20 109/73 (85) 97 Room Air General Appearance: No Apparent Distress, WD/WN HEENT: Normal ENT Inspection, Pharynx Normal Respiratory: Lungs Clear, Normal Breath Sounds, No Accessory Muscle Use, No Respiratory Distress Cardiovascular: Regular Rate, Rhythm, No Edema, No Gallop, No JVD, No Murmur Gastrointestinal: Normal Bowel Sounds, No Organomegaly, Non Tender, Soft Extremity: No Calf Tenderness Skin: Normal Color, Warm/Dry Neurologic/Psychiatric: Alert, Oriented x3, No Motor/Sensory Deficits, Normal 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 Lactic acid was normal. Patient was started on vancomycin and meropenem since it was felt with her recurrent urinary tract infections this may be a resistant bacteria. It did grow out Escherichia coli that was sensitive to Rocephin. The patient was anxious to go home and requested to continue IV antibiotics as an outpatient which was arranged. A midline venous access was obtained and the patient discharged on her previous medications and Rocephin 1 g IV daily for 7 days Labs (last 24 hrs) Laboratory Tests 04/04/20 05:20: White Blood Count 7.1, Red Blood Count 3.75L, Hemoglobin 12.6, Hematocrit 38, Mean Corpuscular Volume 102H, Mean Corpuscular Hemoglobin 34, Mean Corpuscular Hemoglobin Concent 33, Red Cell Distribution Width 13.2, Platelet Count 223, Mean Platelet Volume 9.4, Neutrophils (%) (Auto) 78H, Lymphocytes (%) (Auto) 15, Monocytes (%) (Auto) 6, Eosinophils (%) (Auto) 0, Basophils (%) (Auto) 0, Neutrophils # (Auto) 5.5, Lymphocytes # (Auto) 1.1, Monocytes # (Auto) 0.4, Eosinophils # (Auto) 0.0, Basophils # (Auto) 0.0, Sodium Level 141, Potassium Level 3.8, Chloride Level 113H, Carbon Dioxide Level 22, Anion Gap 6, Blood Urea Nitrogen 4L, Creatinine 0.59L, Estimat Glomerular Filtration Rate > 60, BUN/Creatinine Ratio 7, Glucose Level 111H, Calcium Level 7.9L, Corrected Calcium 8.6, Total Bilirubin 0.5, Aspartate Amino Transf (AST/SGOT) 37H, Alanine Aminotransferase (ALT/SGPT) 36, Alkaline Phosphatase 33L, Total Protein 5.3L, Albumin 3.1L Microbiology 04/02/20 Blood Culture - Preliminary, Resulted No growth 04/02/20 Urine Culture - Final, Complete Escherichia coli Patient resulted labs reviewed. Discussion & Recommendations Discharge Planning: <30 minutes discharge planning Discharge Home Medications: Active Scripts Active Ceftriaxone (Ceftriaxone Sodium) 1 Gm Vial 1 Gm IJ DAILY 7 Days Reported Azul Allergy (Fexofenadine HCl) 180 Mg Tablet 180 Mg PO DAILY Estradiol Patch Twice weekly 0.05mg/hr (Estradiol) 1 Each Patch.tdwk 1 Each TD MON,FRI Sumatriptan Succinate 100 Mg Tablet 100 Mg PO BID PRN Carisoprodol 350 Mg Tablet 350 Mg PO TID Prednisone 10 Mg Tab 10 Mg PO HS Ventolin Hfa (Albuterol Sulfate) 18 Gm Hfa.aer.ad 2 Puff PO Q6H PRN Paroxetine HCl 40 Mg Tablet 40 Mg PO DAILY Levothyroxine Sodium 88 Mcg Tablet 88 Mcg PO DAILY Plaquenil (Hydroxychloroquine Sulfate) 200 Mg Tablet 200 Mg PO HS Condition at discharge Improved Instructions to patient/family Please see electronic discharge instructions given to patient. Clinical Quality Measures DVT/VTE Risk/Contraindication: Risk Factor Score Per Nursin RFS Level Per Nursing on Admit: 2=Moderate Problem Qualifiers (1) Urinary tract infection: Urinary tract infection type: acute cystitis Hematuria presence: without cathleen turia Qualified Codes: N30.00 - Acute cystitis without hematuria NATALIO PRECIADO MD Apr 04, 2020 14:14
[2020-04-04 14:46] VITALS: BP 109/73
== END 2020-04-04 14:48 | disposition home or self-care (01) | DRG 690 ==
LOC: EDUNIT# 12:06 → ER 12:07 → 4TH 14:32
PROVIDERS: ADMIT Internal Medicine; ATTEND Internal Medicine
DX: N12 Tubulo-interstitial nephritis, not specified as acute or chronic (principal); Z16.12 Extended spectrum beta lactamase (ESBL) resistance; B96.20 Unspecified Escherichia coli [E. coli] as the cause of diseases classified elsewhere; G35 Multiple sclerosis; M32.9 Systemic lupus erythematosus, unspecified; J44.9 Chronic obstructive pulmonary disease, unspecified; F17.210 Nicotine dependence, cigarettes, uncomplicated; E03.9 Hypothyroidism, unspecified; M54.9 Dorsalgia, unspecified; G43.909 Migraine, unspecified, not intractable, without status migrainosus; Z98.890 Other specified postprocedural states; Z91.19 Patient's noncompliance with other medical treatment and regimen; Z88.2 Allergy status to sulfonamides
CPT/HCPCS: 36415; 76937; 80053; 81000; 83605; 85025; 86141; 87040; 87077; 87088; 87186; 94760

== ENCOUNTER 2020-04-11 13:39 | Outpatient (RCR) | payer MEDICARE, MEDICAID ==
[2020-04-05] MEDS: cefTRIAXone 1,000 MG IV (ROCEPHIN) VIAL ONE (09:44)
[2020-04-05] MEDS: cefTRIAXone 1,000 MG/SWFI 10 ML IV PUSH IV SCH ×2 (09:45)
[2020-04-05] MEDS: WATER (STERILE) FOR INJECTION 10 ML ONE (09:45)
[2020-04-05 10:00] VITALS: BP 114/61
[2020-04-06] MEDS: cefTRIAXone 1,000 MG/SWFI 10 ML IV PUSH IV SCH ×2 (09:13)
[2020-04-06] MEDS: cefTRIAXone 1,000 MG IV (ROCEPHIN) VIAL ONE (09:15)
[2020-04-06] MEDS: WATER (STERILE) FOR INJECTION 10 ML ONE (09:15)
[2020-04-06 09:30] VITALS: BP 96/71
[2020-04-07 13:18] VITALS: BP 129/72
[2020-04-07] MEDS: cefTRIAXone 1,000 MG/SWFI 10 ML IV PUSH IV SCH ×2 (13:18)
[2020-04-08 14:30] VITALS: BP 104/48
[2020-04-08] MEDS: cefTRIAXone 1,000 MG/SWFI 10 ML IV PUSH IV SCH ×2 (14:38)
[2020-04-09] MEDS: CEFTRIAXONE IV SCH ×2 (14:33)
[2020-04-09] MEDS: WATER IV SCH ×2 (14:33)
[2020-04-09 14:37] VITALS: BP 120/61
[2020-04-10 16:15] VITALS: BP 123/78
[2020-04-10] MEDS: WATER IV SCH ×2 (16:18)
[2020-04-10] MEDS: CEFTRIAXONE IV SCH ×2 (16:18)
[~2020-04-11] VITALS: Ht 177.8 cm; Wt 73.0 kg
[~2020-04-11 13:39] MED LIST changes: +ALBU18HF2 PO; +CARI350T27 PO; +CFTR1V IJ; +ESTR-141 TD; +ESTR1PAT76 TD; +FEXO180T84 PO; +PARO40TA3 PO; +SUMA100T3 PO; +WATER (STERILE) FOR INJECTION 10 ML ONE
--- NOTE | 2020-04-11 13:48 | NUR ---
MIDLINE REMOVED AFTER FINAL DOSE OF ROCEPHIN.
[2020-04-11] MEDS: CEFTRIAXONE IV SCH ×2 (13:49)
[2020-04-11] MEDS: WATER IV SCH ×2 (13:49)
[2020-04-11 13:54] VITALS: BP 126/59
== END 2020-04-11 13:50 | disposition home or self-care (01) ==
LOC: SDC 13:39
PROVIDERS: ATTEND Internal Medicine
DX: Z51.81 Encounter for therapeutic drug level monitoring (principal); Z79.899 Other long term (current) drug therapy
CPT/HCPCS: 96374

== ENCOUNTER 2020-09-08 14:40 | Emergency (ER) | payer MEDICARE, MEDICAID ==
[~2020-09-08] VITALS: Ht 177 cm; Wt 68.0 kg
[~2020-09-08 14:40] MED LIST changes: -WATER (STERILE) FOR INJECTION 10 ML ONE
[2020-09-08 15:00] VITALS: BP 97/60
[2020-09-08 15:08] LABS: BILIRUBIN,URINE NEGATIVE (NEGATIVE); CLARITY,URINE CLEAR; COLOR,URINE YELLOW; GLUCOSE, URINE (UA) NEGATIVE (NEGATIVE); KETONES,URINE NEGATIVE (NEGATIVE); LEUKOCYTE ESTERASE ,URINE 2+ (NEGATIVE); NITRITE,URINE NEGATIVE (NEGATIVE); PROTEIN,URINE NEGATIVE (NEGATIVE)
--- NOTE | 2020-09-08 15:08 | ED General ---
General Stated Complaint: LOWER BACK AND PELVIC PAIN Source of Information: Patient (VERY HOSTILE) History of Present Illness Date Seen by Provider: Sep 08, 2020 Time Seen by Provider: 15:05 Initial Comments PT ARRIVES VIA POV FROM HOME STATES "BAD BACK" "MY TAILBONE" C/O PAIN FOR 10 DAYS C/O LOWER BACK AND PELVIC PAIN LONG HISTORY OF FREQUENT UTI'S, WELL CHRONIC ABDOMINAL /PELVIC PAIN . STATES THIS IS SAME HER USUAL UTI SYMPTOMS STAES SHE ELIAS TO WALK IN CLINIC AT [facility] 2 WEEKS AGO AND WAS TREATED FOR UTI--HAD SHOT OF ROCEPHIN AND RX FOR MACROBIDN X 5 DAYS. HAS NOT FOLLOWED UP WITH THEM SINCE STATES "I FEEL LIKE MY WHOLE PELVIC IS GOING TO CRACK OPEN" C/O PAIN ON URINATION--WANTING "THE BLADDER NUMBING PILL" SOON SHE ARRIVES C/O NAUSEA, NO VOMITING NO FEVER HAS NOT TAKEN ANYTHING FOR PAIN OR OTC AZO PCP: [facility], DR. DOBBINS Allergies and Home Medications Allergies Coded Allergies: Sulfa (Sulfonamide Antibiotics) (Verified Allergy, Unknown, 09/13/15) Home Medications Albuterol Sulfate 18 Gm Hfa.aer.ad, 2 PUFF PO Q6H PRN for SHORTNESS OF BREATH, (Reported) Carisoprodol 350 Mg Tablet, 350 MG PO TID, (Reported) Cefdinir 300 Mg Capsule, 300 MG PO BID Prescribed by: KENDRA TRUJILLO on 09/08/20 1528 Ceftriaxone Sodium 1 Gm Vial, 1 GM IJ DAILY Prescribed by: NATALIO PRECIADO on 04/04/20 1242 Estradiol 1 Each Patch.tdwk, 1 EACH TD MON,FRI, (Reported) Fexofenadine HCl 180 Mg Tablet, 180 MG PO DAILY, (Reported) Hydroxychloroquine Sulfate 200 Mg Tablet, 200 MG PO HS, (Reported) Levothyroxine Sodium 88 Mcg Tablet, 88 MCG PO DAILY, (Reported) Ondansetron 4 Mg Tab.rapdis, 4 MG PO Q4H Prescribed by: KENDRA TRUJILLO on 09/08/20 1539 Paroxetine HCl 40 Mg Tablet, 40 MG PO DAILY, (Reported) Phenazopyridine HCl 200 Mg Tablet, 1 TAB PO TID Prescribed by: KENDRA TRUJILLO on 09/08/20 1528 Prednisone 10 Mg Tab, 10 MG PO HS, (Reported) Sumatriptan Succinate 100 Mg Tablet, 100 MG PO BID PRN for MIGRAINE, (Reported) Patient Home Medication List Home Medication List Reviewed: Yes Review of Systems Review of Systems Constitutional: No fever Respiratory: no symptoms reported Cardiovascular: no symptoms reported Gastrointestinal: see HPI, abdominal pain; No diarrhea; nausea; No vomiting Genitourinary: see HPI, dysuria, pain Musculoskeletal: see HPI, back pain Skin: no symptoms reported Psychiatric/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: No Symptoms Reported Hematologic/Lymphatic: No Symptoms Reported Immunological/Allergic: no symptoms reported Past Atchhzn-Uebtcg-Uzllqi Hx Past Med/Social Hx: Reviewed and Corrections made Patient Social History Type Used: Cigarettes 2nd Hand Smoke Exposure: Yes Recent Foreign Travel: No Contact w/Someone Who Travel: No Recent Hopitalizations: No Immunizations Up To Date Tetanus Booster (TDap): Unknown Date of Pneumonia Vaccine: Apr 02, 2018 Seasonal Allergies Seasonal Allergies: No Past Medical History Surgeries: Yes Bladder Surgery, Hysterectomy Respiratory: Yes COPD Cardiac: No 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 Genitourinary: Yes (bladder issues related to mesh, chronic abdominal pelvic pain) UTI-Chronic Gastrointestinal: No Musculoskeletal: Yes Chronic Back Pain Endocrine: Yes Hypothyroidsim, Lupus HEENT: No Cancer: No Psychosocial: No Integumentary: No Blood Disorders: No Family Medical History Cardiovascular disease 19 FATHER Congenital disease G8 SISTER (a muscle disease that is hereditary) Diabetes mellitus 19 FATHER Thyroid disease 19 MOTHER Physical Exam Vital Signs Vital Signs - First Documented 09/08/20 15:00 Temp 36.8 Pulse 86 Resp 16 B/P (MAP) 97/60 (72) Pulse Ox 98 O2 Delivery Room Air Capillary Refill : Height, Weight, BMI Height: 5'10.00" Weight: 125lbs. oz. 56.591348um; 23.09 BMI Method:Stated General Appearance: No Apparent Distress, WD/WN, Other (VERY HOSTILE) Respiratory: Normal Breath Sounds, No Accessory Muscle Use, No Respiratory Distress Cardiovascular: Regular Rate, Rhythm, No Edema, No Gallop, No Murmur Gastrointestinal: Normal Bowel Sounds, No Organomegaly, No Pulsatile Mass, Soft, Tenderness (SUPRAPUBIC TENDERNESS) Back: Other (BILATERAL SI JOINT AND LOWER LUMBAR/SACRAL TENDERNESS) Extremity: No Pedal Edema Neurologic/Psychiatric: Alert, Oriented x3 Skin: Normal Color, Warm/Dry Progress/Results/Core Measures Suspected Sepsis SIRS Temperature: Pulse: Respiratory Rate: Blood Pressure / Mean: Results/Orders Lab Results Laboratory Tests Test 09/08/20 14:58 Range/Units Urine Color YELLOW Urine Clarity CLEAR Urine pH 7.0 5-9 Urine Specific Schwertner <=1.005 1.016-1.022 Urine Protein NEGATIVE NEGATIVE Urine Glucose (UA) NEGATIVE NEGATIVE Urine Ketones NEGATIVE NEGATIVE Urine Nitrite NEGATIVE NEGATIVE Urine Bilirubin NEGATIVE NEGATIVE Urine Urobilinogen 0.2 < = 1.0 MG/DL Urine Leukocyte Esterase 2+ H NEGATIVE Urine RBC (Auto) NEGATIVE NEGATIVE Urine RBC NONE /HPF Urine WBC 50-100 H /HPF Urine Squamous Epithelial Cells 2-5 /HPF Urine Renal Epithelial Cells 2-5 /HPF Urine Crystals NONE /LPF Urine Bacteria MODERATE H /HPF Urine Casts NONE /LPF Urine Mucus NEGATIVE /LPF Urine Culture Indicated YES Urine Opiates Screen POSITIVE H NEGATIVE Urine Oxycodone Screen NEGATIVE NEGATIVE Urine Methadone Screen NEGATIVE NEGATIVE Urine Propoxyphene Screen NEGATIVE NEGATIVE Urine Barbiturates Screen NEGATIVE NEGATIVE Ur Tricyclic Antidepressants Screen NEGATIVE NEGATIVE Urine Phencyclidine Screen NEGATIVE NEGATIVE Urine Amphetamines Screen NEGATIVE NEGATIVE Urine Methamphetamines Screen NEGATIVE NEGATIVE Urine Benzodiazepines Screen NEGATIVE NEGATIVE Urine Cocaine Screen NEGATIVE NEGATIVE Urine Cannabinoids Screen NEGATIVE NEGATIVE My Orders Orders - KENDRA TRUJILLO DO Ua Culture If Indicated (09/08/20 15:03) Drug Screen Stat (Urine) (09/08/20 15:12) Phenazopyridine Tablet (Pyridium Tablet) (09/08/20 15:30) Urine Culture (09/08/20 14:58) Ceftriaxone For Im Use (Rocephin For Im (09/08/20 15:30) Ketorolac Injection (Toradol Injection) (09/08/20 15:30) Lidocaine 1% Inj 20 Ml (Xylocaine 1% Inj (09/08/20 15:30) Medications Given in ED Current Medications Medications Dose Ordered Sig/Jens Route Start Time Stop Time Status Last Admin Dose Admin Ketorolac Tromethamine 60 mg ONCE ONCE IM 09/08/20 15:30 09/08/20 15:31 DC 09/08/20 15:46 60 MG Phenazopyridine HCl 200 mg ONCE ONCE PO 09/08/20 15:30 09/08/20 15:31 DC 09/08/20 15:46 200 MG Vital Signs/I&O 09/08/20 15:00 Temp 36.8 Pulse 86 Resp 16 B/P (MAP) 97/60 (72) Pulse Ox 98 O2 Delivery Room Air Capillary Refill : Progress Note : Progress Note PT AGREED TO SHOTS OF ROCEPHIN AND TORADOL, THEN REFUSED THE ROCEPHIN WHEN NURSE WENT TO GIVE SHOT--STATING "IT DOESN'T WORK". ADVISED HER I WOULD BE GIVING HERE A DIFFERENT ORAL ANTIBIOTIC AND FOR 10 DAYS DURATION INSTEAD OF 5, SHE HAS CHRONIC UTI'S. PT HAS GROWN OUT E.COLI ON MOST URINE CULTURES DONE HERE, AND ALL HAVE BEEN SENSITIVE TO ROCEPHIN AND OTHER CEPHALOSPORINS, AND ALSO ALL SENSITIVE TO MACROBID. Departure Impression Primary Impression: UTI (urinary tract infection) Additional Impression: Chronic UTI Disposition: HOME, SELF-CARE Condition: Stable Departure-Patient Inst. Referrals: ELY DOBBINS MD (PCP/Family) Primary Care Physician Patient Instructions: Urinary Tract Infection, Adult (DC) Add. Discharge Instructions: LOTS OF CLEAR LIQUIDS TYLENOL AND MOTRIN NEEDED FOR PAIN FOLLOW UP WITH [facility] IN 4-5 DAYS FOR FURTHER CARE, OR SOONER IF SYMPTOMS WORSEN Scripts Ondansetron (Ondansetron Odt) 4 Mg Tab.rapdis 4 MG PO Q4H for Nausea/Vomiting, #10 TAB Prov: KENDRA TRUJILLO DO 09/08/20 Cefdinir (Cefdinir) 300 Mg Capsule 300 MG PO BID, #20 CAP Prov: KENDRA TRUJILLO DO 09/08/20 Phenazopyridine HCl (Pyridium) 200 Mg Tablet 1 TAB PO TID, #15 TAB Prov: KENDRA TRUJILLO DO 09/08/20 KENDRA TRUJILLO DO Sep 08, 2020 15:08
[2020-09-08 15:20] LABS: BACTERIA,URINE MODERATE /HPF; WBC,URINE 50-100 /HPF
[2020-09-08] MEDS ORDERED: PHEN-640 PO (15:28)
[2020-09-08] MEDS ORDERED: CEFD300C3 PO (15:28)
[2020-09-08 15:30] LABS: AMPHETAMINE SCREEN, URINE NEGATIVE (NEGATIVE); BARBITURATE SCREEN URINE NEGATIVE (NEGATIVE); BENZODIAZEPINES SCREEN URINE NEGATIVE (NEGATIVE); CANNABINOID SCREEN, URINE NEGATIVE (NEGATIVE); COCAINE SCREEN URINE NEGATIVE (NEGATIVE); METHADONE STAT NEGATIVE (NEGATIVE); METHAMPHETAMINE SCREEN URINE S NEGATIVE (NEGATIVE); OPIATE SCREEN URINE POSITIVE (NEGATIVE); OXYCODONE STAT NEGATIVE (NEGATIVE); PROPOXYPHENE STAT NEGATIVE (NEGATIVE); TRICYCLIC ANTIDEPRESSANTS SCRE NEGATIVE (NEGATIVE)
[2020-09-08] MEDS ORDERED: cefTRIAXone 1,000 MG/2.86 ml vial (IM ONLY) IM SCH (15:30)
[2020-09-08] MEDS ORDERED: LIDOCAINE 1% INJ 20 ML 20 ML VIAL INJ ONE (15:30)
[2020-09-08] MEDS ORDERED: KETOROLAC 60 MG/2 ML VIAL IM ONE (15:30)
[2020-09-08] MEDS ORDERED: PHENAZOPYRIDINE 100 MG (PYRIDIUM) TABLET PO ONE (15:30)
[2020-09-08] MEDS ORDERED: ONDA4TAB11 PO (15:39)
--- NOTE | 2020-09-08 15:40 | NUR ---
PT REFUSES ROCEPHIN AND WOULD LIKE A DIFFERENT DR. NOTIFIED HER THAT THERE IS ONLY ONE DR IN THE ER.
--- NOTE | 2020-09-08 15:45 | NUR ---
HAL MOSLEY NOTIFIED THAT PT IS UPSET AND OWOULD LIKE ANOTHER .
--- NOTE | 2020-09-08 15:50 | NUR ---
HAL MOSLEY TALKING TO THE PT AT THIS TIME.
--- NOTE | 2020-09-08 16:17 | NUR ---
Discussed plan of care with patient. Patient voiced her concern that she was just recently on antibiotics and she's worried that she will be resistant to antibiotics prescribed today. Culture report of last UA obtained from [facility] and results discussed w/ patient. Results from today's UA discussed w/ patient and culture/sensitivity process explained to patient. Patient refusing any antibiotics today stating she wants to wait for culture report to come back before taking any additional medications since she just finished antibiotics. Patient refusing to sign discharge papers at this time. Ellie TUTTLE and Dr. Bach notified.
== END 2020-09-08 16:17 | disposition home or self-care (01) ==
LOC: EDUNIT# 14:40 → ER 14:43
DX: N39.0 Urinary tract infection, site not specified (principal); J44.9 Chronic obstructive pulmonary disease, unspecified; E03.9 Hypothyroidism, unspecified; Z77.22 Contact with and (suspected) exposure to environmental tobacco smoke (acute) (chronic); Z79.52 Long term (current) use of systemic steroids; Z79.890 Hormone replacement therapy; Z79.2 Long term (current) use of antibiotics; Z88.2 Allergy status to sulfonamides; Z82.49 Family history of ischemic heart disease and other diseases of the circulatory system; Z83.3 Family history of diabetes mellitus
CPT/HCPCS: 80306; 81000; 87088; 99282

== ENCOUNTER 2021-01-24 22:13 | Emergency (ER) | payer MEDICARE, MEDICAID ==
[~2021-01-24] VITALS: Ht 177.8 cm; Wt 68.0 kg
[~2021-01-24 22:13] MED LIST changes: +ONDA4TAB11 PO; +PHEN-640 PO
[2021-01-24] MEDS ORDERED: HYDROcodone/APAP 5 MG/325 MG (LORTAB) TAB PO ONE (22:45)
--- NOTE | 2021-01-24 22:51 | ED Fall/Injury ---
General Chief Complaint: General Problems/Pain Stated Complaint: CONFUSION;FALL;L ARM INJ Source: patient, spouse Exam Limitations: no limitations History of Present Illness Date Seen by Provider: Jan 24, 2021 Time Seen by Provider: 22:20 Initial Comments Patient presents ER by private conveyance with with chief complaint that for the past week and a half since she changed pharmacies she is been out of her lupus medication and she has been feeling more more weak with some suprapubic discomfort. Today she had 3 falls did not strike her head nor lose consciousness. She says is having some new pain in her right hip otherwise no other new pains. She had midline when she was in the hospital taken out a week or so ago and was having some swelling and pain in her left arm. She feels like is getting better but was concerning her for a while. She is not on blood thinners and has no history of clots. She is not having any shortness of breath or chest pain. No nausea or vomiting. She says she has not had her third dose of hydrocodone that she has been on for 12 years and would like a dose of that is for her chronic pain. She is able to bear weight and transfer under her own power. Allergies and Home Medications Allergies Coded Allergies: Sulfa (Sulfonamide Antibiotics) (Verified Allergy, Unknown, 09/13/15) Home Medications Albuterol Sulfate 18 Gm Hfa.aer.ad, 2 PUFF PO Q6H PRN for SHORTNESS OF BREATH, (Reported) Carisoprodol 350 Mg Tablet, 350 MG PO TID, (Reported) Cefdinir 300 Mg Capsule, 300 MG PO BID Prescribed by: KENDRA TRUJILLO on 09/08/20 1528 Ceftriaxone Sodium 1 Gm Vial, 1 GM IJ DAILY Prescribed by: NATALIO PRECIADO on 04/04/20 1242 Estradiol 1 Each Patch.tdwk, 1 EACH TD MON,FRI, (Reported) Fexofenadine HCl 180 Mg Tablet, 180 MG PO DAILY, (Reported) Hydroxychloroquine Sulfate 200 Mg Tablet, 200 MG PO HS, (Reported) Levothyroxine Sodium 88 Mcg Tablet, 88 MCG PO DAILY, (Reported) Ondansetron 4 Mg Tab.rapdis, 4 MG PO Q4H Prescribed by: KENDRA TRUJILLO on 09/08/20 1539 Paroxetine HCl 40 Mg Tablet, 40 MG PO DAILY, (Reported) Phenazopyridine HCl 200 Mg Tablet, 1 TAB PO TID Prescribed by: KENDRA TRUJILLO on 09/08/20 1528 Prednisone 10 Mg Tab, 10 MG PO HS, (Reported) Sumatriptan Succinate 100 Mg Tablet, 100 MG PO BID PRN for MIGRAINE, (Reported) Patient Home Medication List Home Medication List Reviewed: Yes Review of Systems Review of Systems Constitutional: No chills, No diaphoresis Eyes: Denies Blindness, Denies Drainage Ears, Nose, Mouth, Throat: denies ear pain, denies ear discharge Respiratory: No cough, No short of breath Cardiovascular: No edema, No palpitations Gastrointestinal: abdominal pain (Suprapubic); No constipation, No diarrhea, No nausea Genitourinary: No discharge, No dysuria Musculoskeletal: back pain (Chronic), joint pain (Right hip) All Other Systems Reviewed Negative Unless Noted: Yes Past Bnwoujd-Xwbnno-Ydqgph Hx Patient Social History Alcohol Use: Denies Use Smoking Status: Current Everyday Smoker Type Used: Cigarettes 2nd Hand Smoke Exposure: Yes Recent Hopitalizations: No Immunizations Up To Date Tetanus Booster (TDap): Unknown Date of Pneumonia Vaccine: Apr 02, 2018 Seasonal Allergies Seasonal Allergies: No Past Medical History Surgeries: Yes Bladder Surgery, Hysterectomy Respiratory: Yes COPD Cardiac: No 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 Genitourinary: Yes (bladder issues related to mesh, chronic abdominal pelvic pain) UTI-Chronic Gastrointestinal: No Musculoskeletal: Yes Chronic Back Pain Endocrine: Yes Hypothyroidsim, Lupus HEENT: No Cancer: No Psychosocial: No Integumentary: No Blood Disorders: No Family Medical History Cardiovascular disease 19 FATHER Congenital disease G8 SISTER (a muscle disease that is hereditary) Diabetes mellitus 19 FATHER Thyroid disease 19 MOTHER Physical Exam Vital Signs Vital Signs - First Documented 01/24/21 01/24/21 23:01 23:03 Temp 36.8 Pulse 76 70 81 Resp 22 B/P (MAP) 102/66 (78) 96/55 (69) 92/72 (79) Capillary Refill : Height, Weight, BMI Height: 5'10.00" Weight: 125lbs. oz. 56.309797ly; 21.00 BMI Method:Stated General Appearance: WD/WN, mild distress HEENT: PERRL/EOMI, normal ENT inspection, TMs normal, pharynx normal Neck: non-tender, full range of motion, supple, normal inspection Cardiovascular: normal peripheral pulses, regular rate, rhythm Respiratory: lungs clear, normal breath sounds, no respiratory distress, no accessory muscle use Peripheral Pulses: 2+ Radial Pulses (R), 2+ Radial Pulses (L) Gastrointestinal: normal bowel sounds, soft, tenderness (Suprapubic tenderness mild without Rovsing sign, McBurney's point tenderness, rebound tenderness or mesenteric signs) Extremities: normal range of motion, normal inspection, other (Tenderness palpation over the greater trochanter of the right femur without deformity or ecchymoses) Neurologic/Psychiatric: blockman II-XII nml as tested, no motor/sensory deficits, alert, normal mood/affect, oriented x 3, other (NIH is 0) Skin: normal color, warm/dry Darrel Coma Score Best Eye Response: (4) Open Spontaneously Best Verbal Response: (5) Oriented Best Motor Response: (6) Obeys Commands Darrel Total: 15 Progress/Results/Core Measures Results/Orders Lab Results Laboratory Tests Test 01/24/21 22:32 01/24/21 22:50 01/24/21 23:23 Range/Units Glucometer 111 H 70-110 MG/DL White Blood Count 9.5 4.3-11.0 10^3/uL Red Blood Count 4.45 3.80-5.11 10^6/uL Hemoglobin 14.9 11.5-16.0 g/dL Hematocrit 44 35-52 % Mean Corpuscular Volume 98 80-99 fL Mean Corpuscular Hemoglobin 34 25-34 pg Mean Corpuscular Hemoglobin Concent 34 32-36 g/dL Red Cell Distribution Width 12.3 10.0-14.5 % Platelet Count 271 130-400 10^3/uL Mean Platelet Volume 9.2 9.0-12.2 fL Immature Granulocyte % (Auto) 1 % Neutrophils (%) (Auto) 78 H 42-75 % Lymphocytes (%) (Auto) 15 12-44 % Monocytes (%) (Auto) 5 0-12 % Eosinophils (%) (Auto) 1 0-10 % Basophils (%) (Auto) 1 0-10 % Neutrophils # (Auto) 7.4 1.8-7.8 10^3/uL Lymphocytes # (Auto) 1.5 1.0-4.0 10^3/uL Monocytes # (Auto) 0.4 0.0-1.0 10^3/uL Eosinophils # (Auto) 0.1 0.0-0.3 10^3/uL Basophils # (Auto) 0.1 0.0-0.1 10^3/uL Immature Granulocyte # (Auto) 0.1 0.0-0.1 10^3/uL Sodium Level 137 135-145 MMOL/L Potassium Level 4.1 3.6-5.0 MMOL/L Chloride Level 106 98-107 MMOL/L Carbon Dioxide Level 19 L 21-32 MMOL/L Anion Gap 12 5-14 MMOL/L Blood Urea Nitrogen 5 L 7-18 MG/DL Creatinine 0.75 0.60-1.30 MG/DL Estimat Glomerular Filtration Rate > 60 BUN/Creatinine Ratio 7 Glucose Level 105 70-105 MG/DL Calcium Level 8.8 8.5-10.1 MG/DL Corrected Calcium 9.0 8.5-10.1 MG/DL Total Bilirubin 0.4 0.1-1.0 MG/DL Aspartate Amino Transf (AST/SGOT) 18 5-34 U/L Alanine Aminotransferase (ALT/SGPT) 15 0-55 U/L Alkaline Phosphatase 42 40-136 U/L Troponin I < 0.028 <0.028 NG/ML C-Reactive Protein High Sensitivity 0.14 0.00-0.50 MG/DL B-Type Natriuretic Peptide 15.9 <100.0 PG/ML Total Protein 6.2 L 6.4-8.2 GM/DL Albumin 3.7 3.2-4.5 GM/DL Serum Alcohol < 10 <10 MG/DL Urine Color YELLOW Urine Clarity SL CLOUDY Urine pH 8.5 5-9 Urine Specific [place] 1.010 L 1.016-1.022 Urine Protein NEGATIVE NEGATIVE Urine Glucose (UA) NEGATIVE NEGATIVE Urine Ketones NEGATIVE NEGATIVE Urine Nitrite POSITIVE H NEGATIVE Urine Bilirubin NEGATIVE NEGATIVE Urine Urobilinogen 0.2 < = 1.0 MG/DL Urine Leukocyte Esterase NEGATIVE NEGATIVE Urine RBC (Auto) NEGATIVE NEGATIVE Urine RBC NONE /HPF Urine WBC 0-2 /HPF Urine Squamous Epithelial Cells 0-2 /HPF Urine Crystals NONE /LPF Urine Bacteria MODERATE H /HPF Urine Casts NONE /LPF Urine Mucus NEGATIVE /LPF Urine Yeast MODERATE H /HPF Urine Culture Indicated YES Urine Opiates Screen POSITIVE H NEGATIVE Urine Oxycodone Screen NEGATIVE NEGATIVE Urine Methadone Screen NEGATIVE NEGATIVE Urine Propoxyphene Screen NEGATIVE NEGATIVE Urine Barbiturates Screen NEGATIVE NEGATIVE Ur Tricyclic Antidepressants Screen NEGATIVE NEGATIVE Urine Phencyclidine Screen NEGATIVE NEGATIVE Urine Amphetamines Screen NEGATIVE NEGATIVE Urine Methamphetamines Screen NEGATIVE NEGATIVE Urine Benzodiazepines Screen NEGATIVE NEGATIVE Urine Cocaine Screen NEGATIVE NEGATIVE Urine Cannabinoids Screen NEGATIVE NEGATIVE My Orders Orders - IRINA MOLINA Ua Culture If Indicated (01/24/21 22:25) Accucheck Stat ONCE (01/24/21 22:25) Cbc With Automated Diff (01/24/21 22:44) Comprehensive Metabolic Panel (01/24/21 22:44) Orthostatic Vital Signs (Adult (01/24/21 22:44) Hs C Reactive Protein (01/24/21 22:44) Drug Screen Stat (Urine) (01/24/21 22:44) Alcohol (01/24/21 22:44) Hydrocodone/Apap 5/325 Tablet (Lortab 5 (01/24/21 22:45) Chest 1 View, Ap/Pa Only (01/24/21 22:44) Humerus, Left, 2 Views (01/24/21 22:44) Hip, Right, 2 Views (01/24/21 22:44) Troponin I (01/24/21 22:44) BNP (01/24/21 22:44) Continuous Ekg Monitoring (01/24/21 22:44) Ekg Tracing (01/24/21 22:44) Lactated Ringers (Lr 1000 Ml Iv Solution (01/24/21 23:45) Urine Culture (01/24/21 23:23) Rocephin 1 Gm Iv (1x Dose) (01/25/21 00:00) Ketorolac Injection (Toradol Injection) (01/25/21 00:00) Medications Given in ED Current Medications Medications Dose Ordered Sig/Jens Route Start Time Stop Time Status Last Admin Dose Admin Acetaminophen/ Hydrocodone Bitart 1 ea ONCE ONCE PO 01/24/21 22:45 01/24/21 22:47 DC 01/24/21 22:51 1 EA Lactated Ringer's 1,000 ml @ 0 mls/hr Q0M ONCE IV 01/24/21 23:45 01/24/21 23:46 DC 01/24/21 23:41 0 MLS/HR Vital Signs/I&O 01/24/21 01/24/21 23:01 23:03 Temp 36.8 Pulse 76 79 70 81 Resp 22 B/P (MAP) 102/66 (78) 97/57 (70) 96/55 (69) 92/72 (79) FSBG Bedside Testing Finger Stick Blood Glucose: 111 Progress Progress Note #1: Time: 22:49 Progress Note Patient suspect she is having a lupus flare since she is off her lupus medicat ions. We will check a urine and some basic labs and she is having some suprapubic tenderness. We will get an x-ray of her left humerus and her right hip. We will get a D-dimer since she had a midline to make sure she is not having some kind of DVT in her left arm. If we cannot rule it out then we will set her up for an ultrasound tomorrow and give her a dose of Lovenox. We can give her some Solu-Medrol tonight if this would help her until she gets her lupus medications. Chest x-ray. We discussed a CT of the head and since she did not strike her head and she is alert and oriented x4 and has no neurologic symptoms with a clinically supported decision-making process she has declined further imaging at this time. Since is potentially near syncope will get an EKG, troponin and BNP as well. We will also give her a dose of hydrocodone which she typically takes. Progress Note #2: Time: 23:30 Progress Note After the hydrocodone the patient informed nursing staff that she would rather have IV pain medicine. She was able to transfer from the [facility] to the CT table on her own. No acute osseous abnormalities on imaging. No explanation for her falls yet. Her labs not reveal dehydration. Patient pain is better after hydrocodone. [place] syncope risk score 0 points. Low risk; 1.9% risk of 30-day serious adverse event. Orthostatics are vaguely positive with a diastolic drop of 11 mmHg. We will give her a liter of lactated Ringer's. Progress Note #3: Time: 23:53 Progress Note The patient is feeling much better after some IV fluids. She has a UTI and mild dehydration reflected in her orthostasis. I will let her finish her IV fluids give her some Rocephin. She want some Toradol for her discomfort so we will give her that. We will start her on some Eliquis and have her get a ultrasound of her left upper extremity if she starting swelling on Tuesday. Initial ECG Impression Date: Jan 24, 2021 Initial ECG Impression Time: 22:57 Initial ECG Rate: 77 Initial ECG Rhythm: Normal Sinus Initial ECG Intervals: Normal Initial ECG Impression: Normal Comment Normal sinus rhythm without clinically relevant ST elevation or depression. Diagnostic Imaging Diagonstic Imaging: Xray Plain Films/CT/US/NM/MRI: chest Comments No acute osseous abnormality. Reviewed: Reviewed by Me Diagonstic Imaging: Xray Plain Films/CT/US/NM/MRI: other (Left humerus) Comments No cardiopulmonary process acutely. Negative for acute osseous abnormality. Reviewed: Reviewed by Me Diagonstic Imaging: Xray Plain Films/CT/US/NM/MRI: hip (Right) Comments No acute osseous abnormality. Reviewed: Reviewed by Me Departure Impression Primary Impression: Falls Qualified Codes: W19.XXXA - Unspecified fall, initial encounter Additional Impressions: Orthostasis Right hip pain Left arm swelling Suspect left upper extremity DVT Disposition: HOME, SELF-CARE Condition: Stable Departure-Patient Inst. Decision time for Depature: 23:54 Referrals: ELY DOBBINS MD (PCP/Family) Primary Care Physician Patient Instructions: Deep Vein Thrombosis (Blood Clots in the Arm) (DC), Orthostatic Hypotension, Urinary Tract Infection, Adult (DC) Add. Discharge Instructions: You have an infection which caused some dehydration which causes your falls. Drink plenty of fluids. Keflex 1 capsule twice a day for the next week. Eliquis 1 tablet twice a day for the next week. Tuesday morning call first thing in the morning to set up a ultrasound of your left upper extremity. If it is negative you can stop taking the Eliquis. Eliquis is a blood thinner and will cause increased bleeding and bruising if you fall or cut yourself. Follow-up with Dr. Dobbins in the clinic for the results of your ultrasound. Return to the ER for significantly worsening symptoms. All discharge instructions reviewed with patient and/or family. Voiced understanding. Scripts Apixaban (Eliquis) 5 Mg Tablet 5 MG PO BID for 7 Days, #14 TAB 0 Refills Prov: IRINA MOLINA 01/24/21 Cephalexin (Cephalexin) 500 Mg Tablet 500 MG PO BID for 7 Days, #14 TAB 0 Refills Prov: IRINA MOLINA 01/24/21 Copy Copies To 1: ANA HEARN DO IRINA MOLINA Jan 24, 2021 22:51
[2021-01-24 22:58] LABS: BASOPHILS # (AUTO) 0.1 10^3/uL (0.0-0.1); BASOPHILS % (AUTO) 1 % (0-10); EOSINOPHILS # (AUTO) 0.1 10^3/uL (0.0-0.3); EOSINOPHILS % (AUTO) 1 % (0-10); HEMATOCRIT 44 % (35-52); HEMOGLOBIN 14.9 g/dL (11.5-16.0); LYMPHOCYTES # (AUTO) 1.5 10^3/uL (1.0-4.0); LYMPHOCYTES % (AUTO) 15 % (12-44); MEAN CORPUSCULAR HEMOGLOBIN 34 pg (25-34); MEAN CORPUSCULAR HGB CONC 34 g/dL (32-36); MEAN CORPUSCULAR VOLUME 98 fL (80-99); MEAN PLATELET VOLUME 9.2 fL (9.0-12.2); MONOCYTES # (AUTO) 0.4 10^3/uL (0.0-1.0); MONOCYTES % (AUTO) 5 % (0-12); NEUTROPHILS # (AUTO) 7.4 10^3/uL (1.8-7.8); NEUTROPHILS % (AUTO) 78 % (42-75); PLATELET COUNT 271 10^3/uL (130-400); WHITE BLOOD COUNT 9.5 10^3/uL (4.3-11.0)
[2021-01-24 23:01] VITALS: BP_SYST 102; BP_SYST 92; BP_SYST 96; BP_DIAS 55; BP_DIAS 66; BP_DIAS 72
[2021-01-24 23:08] LABS: ALBUMIN 3.7 GM/DL (3.2-4.5); CHLORIDE 106 MMOL/L (98-107); POTASSIUM 4.1 MMOL/L (3.6-5.0); SODIUM 137 MMOL/L (135-145)
[2021-01-24 23:09] LABS: CALCIUM 8.8 MG/DL (8.5-10.1)
[2021-01-24 23:11] LABS: GLUCOSE 105 MG/DL (70-105); TOTAL PROTEIN 6.2 GM/DL (6.4-8.2)
[2021-01-24 23:12] LABS: BILIRUBIN,TOTAL 0.4 MG/DL (0.1-1.0); CARBON DIOXIDE 19 MMOL/L (21-32)
[2021-01-24 23:14] LABS: ALKALINE PHOSPHATASE 42 U/L (40-136); CREATININE SERUM 0.75 MG/DL (0.60-1.30); GFR ESTIMATED > 60
[2021-01-24 23:15] LABS: BUN/CREATININE RATIO 7
[2021-01-24 23:17] LABS: ALANINE AMINOTRANSFERASE 15 U/L (0-55)
[2021-01-24 23:31] LABS: BILIRUBIN,URINE NEGATIVE (NEGATIVE); CLARITY,URINE SL CLOUDY; COLOR,URINE YELLOW; GLUCOSE, URINE (UA) NEGATIVE (NEGATIVE); KETONES,URINE NEGATIVE (NEGATIVE); LEUKOCYTE ESTERASE ,URINE NEGATIVE (NEGATIVE); NITRITE,URINE POSITIVE (NEGATIVE); PH,URINE 8.5 (5-9); PROTEIN,URINE NEGATIVE (NEGATIVE)
[2021-01-24 23:44] LABS: AMPHETAMINE SCREEN, URINE NEGATIVE (NEGATIVE); BACTERIA,URINE MODERATE /HPF; BARBITURATE SCREEN URINE NEGATIVE (NEGATIVE); BENZODIAZEPINES SCREEN URINE NEGATIVE (NEGATIVE); CANNABINOID SCREEN, URINE NEGATIVE (NEGATIVE); COCAINE SCREEN URINE NEGATIVE (NEGATIVE); METHADONE STAT NEGATIVE (NEGATIVE); METHAMPHETAMINE SCREEN URINE S NEGATIVE (NEGATIVE); OPIATE SCREEN URINE POSITIVE (NEGATIVE); OXYCODONE STAT NEGATIVE (NEGATIVE); PROPOXYPHENE STAT NEGATIVE (NEGATIVE); SQUAMOUS EPITHELIAL CELL,UR 0-2 /HPF; TRICYCLIC ANTIDEPRESSANTS SCRE NEGATIVE (NEGATIVE); WBC,URINE 0-2 /HPF; YEAST,URINE MODERATE /HPF
[2021-01-24] MEDS ORDERED: LACTATED RINGERS 1,000 ML IV ONE (23:45)
[2021-01-24] MEDS ORDERED: APIX5TAB PO (23:57)
[2021-01-24] MEDS ORDERED: CEPH500T PO (23:57)
[2021-01-25] MEDS ORDERED: cefTRIAXone FOR IV USE 1,000 MG in WATER (STERILE) FOR INJECTION 10 ML IV ONE ×2
[2021-01-25] MEDS ORDERED: KETOROLAC 30 MG/ML VIAL IVP ONE
[2021-01-25] MEDS ORDERED: APIXABAN 5 MG (ELIQUIS) TABLET PO ONE
[2021-01-25 00:27] VITALS: BP 124/73
--- NOTE | 2021-01-25 06:04 | Diagnostic Imaging Report ---
Clinical indication: Patient fell earlier. Patient complains of pain and soreness. Exam: Portable chest x-ray upright view. Comparisons: Chest x-ray dated 09/29/2019. Findings: Lungs/pleura: Lungs are clear. There is no pneumothorax. There is no pleural effusion. Mediastinum: Unremarkable. Pulmonary vasculature: Unremarkable. Heart: Unremarkable. Bones/extrathoracic soft tissue: Unremarkable. Impression: There is no radiographic evidence of acute cardiopulmonary process. Dictated by: Dictated on workstation # [id number]
--- NOTE | 2021-01-25 07:40 | Diagnostic Imaging Report ---
Indication: Fell, right hip pain. FINDINGS: 2 views of the right hip demonstrates normal ossification. No fracture or dislocation is present. IMPRESSION: Normal right hip. Dictated by: Dictated on workstation # [id number]
--- NOTE | 2021-01-25 07:41 | Diagnostic Imaging Report ---
INDICATION: Fell, left arm pain. FINDINGS: 2 views of the left humerus demonstrate normal ossification. No fracture is present. IMPRESSION: Normal left humerus. Dictated by: Dictated on workstation # [id number]
== END 2021-01-25 00:27 | disposition home or self-care (01) ==
LOC: EDUNIT# 22:13 → ER 22:14
DX: I95.1 Orthostatic hypotension (principal); M25.551 Pain in right hip; M79.89 Other specified soft tissue disorders; J44.9 Chronic obstructive pulmonary disease, unspecified; E03.9 Hypothyroidism, unspecified; Z82.49 Family history of ischemic heart disease and other diseases of the circulatory system; Z83.3 Family history of diabetes mellitus; F17.210 Nicotine dependence, cigarettes, uncomplicated; Z88.2 Allergy status to sulfonamides; Z79.890 Hormone replacement therapy; Z79.52 Long term (current) use of systemic steroids
CPT/HCPCS: 71045; 73060; 73502; 80053; 80306; 81000; 82962; 83880; 84484; 85025; 86141; 87077; 87088; 93005; 99283; G0480; 36415; 80320

== ENCOUNTER 2021-02-13 14:12 | Emergency (ER) | payer MEDICARE, MEDICAID ==
[~2021-02-13] VITALS: Ht 177.8 cm; Wt 68.0 kg
[~2021-02-13 14:12] MED LIST changes: +APIX5TAB PO; +CEPH500T PO
[2021-02-13] MEDS ORDERED: PHEN-640 PO (14:26)
--- NOTE | 2021-02-13 14:26 | ED GU-Female ---
General Chief Complaint: - Urinary Stated Complaint: POSSIBLE UTI Source: patient Exam Limitations: no limitations History of Present Illness Date Seen by Provider: Feb 13, 2021 Time Seen by Provider: 14:23 Initial Comments To ER with reports of urinary frequency and burning. She was just here a few weeks ago for urinary tract infection and states that she gets these very frequently. She also states that she would like to find someone to put her on a prophylactic antibiotic but admits "I dont follow-up so it is my own fault". Timing/Duration: yesterday Severity/Quality: moderate Location: suprapubic Radiation: none Activities at Onset: none Prior Genitourinary Problems: none Associated Symptoms: dysuria Allergies and Home Medications Allergies Coded Allergies: Sulfa (Sulfonamide Antibiotics) (Verified Allergy, Unknown, 09/13/15) Home Medications Albuterol Sulfate 18 Gm Hfa.aer.ad, 2 PUFF PO Q6H PRN for SHORTNESS OF BREATH, (Reported) Apixaban 5 Mg Tablet, 5 MG PO BID Prescribed by: IRINA MOLINA on 01/24/21 2357 Carisoprodol 350 Mg Tablet, 350 MG PO TID, (Reported) Cefdinir 300 Mg Capsule, 300 MG PO BID Prescribed by: KENDRA TRUJILLO on 09/08/20 1528 Ceftriaxone Sodium 1 Gm Vial, 1 GM IJ DAILY Prescribed by: NATALIO PRECIADO on 04/04/20 1242 Cefuroxime Axetil 250 Mg Tablet, 250 MG PO BID Prescribed by: DONATO VELOZ on 02/13/21 1430 Cephalexin 500 Mg Tablet, 500 MG PO BID Prescribed by: IRINA MOLINA on 01/24/21 2357 Estradiol 1 Each Patch.tdwk, 1 EACH TD MON,FRI, (Reported) Fexofenadine HCl 180 Mg Tablet, 180 MG PO DAILY, (Reported) Hydroxychloroquine Sulfate 200 Mg Tablet, 200 MG PO HS, (Reported) Levothyroxine Sodium 88 Mcg Tablet, 88 MCG PO DAILY, (Reported) Ondansetron 4 Mg Tab.rapdis, 4 MG PO Q4H Prescribed by: KENDRA TRUJILLO on 09/08/20 1539 Paroxetine HCl 40 Mg Tablet, 40 MG PO DAILY, (Reported) Phenazopyridine HCl 200 Mg Tablet, 1 TAB PO TID Prescribed by: KENDRA TRUJILLO on 09/08/20 1528 Phenazopyridine HCl 200 Mg Tablet, 1 TAB PO TID Prescribed by: DONATO VELOZ on 02/13/21 1426 Prednisone 10 Mg Tab, 10 MG PO HS, (Reported) Sumatriptan Succinate 100 Mg Tablet, 100 MG PO BID PRN for MIGRAINE, (Reported) Patient Home Medication List Home Medication List Reviewed: Yes Review of Systems Review of Systems Constitutional: see HPI; No chills, No fever EENTM: see HPI Respiratory: no symptoms reported Cardiovascular: no symptoms reported Gastrointestinal: abdominal pain Genitourinary: no symptoms reported Musculoskeletal: no symptoms reported Skin: no symptoms reported Psychiatric/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: No Symptoms Reported Endocrine: No Symptoms Reported Hematologic/Lymphatic: No Symptoms Reported Past Ypaltgr-Qofxow-Andgel Hx Patient Social History Type Used: Cigarettes 2nd Hand Smoke Exposure: Yes Recent Hopitalizations: No Immunizations Up To Date Tetanus Booster (TDap): Unknown Date of Pneumonia Vaccine: Apr 02, 2018 Seasonal Allergies Seasonal Allergies: No Past Medical History Surgeries: Yes Bladder Surgery, Hysterectomy Respiratory: Yes COPD Cardiac: No 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 Genitourinary: Yes (bladder issues related to mesh, chronic abdominal pelvic pain) UTI-Chronic Gastrointestinal: No Musculoskeletal: Yes Chronic Back Pain Endocrine: Yes Hypothyroidsim, Diabetes, Non-Insulin dep, Lupus HEENT: No Cancer: No Psychosocial: No Integumentary: No Blood Disorders: No Family Medical History Cardiovascular disease 19 FATHER Congenital disease G8 SISTER (a muscle disease that is hereditary) Diabetes mellitus 19 FATHER Thyroid disease 19 MOTHER Physical Exam Vital Signs Vital Signs - First Documented 02/13/21 14:20 Temp 36.1 Pulse 81 Resp 16 B/P (MAP) 124/61 (82) Pulse Ox 97 O2 Delivery Room Air Capillary Refill : Height, Weight, BMI Height: 5'10.00" Weight: 125lbs. oz. 56.009976kg; 21.00 BMI Method:Stated General Appearance: WD/WN, no apparent distress HEENT: PERRL/EOMI, normal ENT inspection Respiratory: normal breath sounds, no respiratory distress, no accessory muscle use Gastrointestinal: normal bowel sounds, non tender, soft Neurologic/Psychiatric: alert, normal mood/affect, oriented x 3 Skin: normal color, warm/dry Progress/Results/Core Measures Suspected Sepsis SIRS Temperature: Pulse: Respiratory Rate: Blood Pressure / Mean: Results/Orders Lab Results Laboratory Tests Test 02/13/21 14:22 Range/Units Urine Color YELLOW Urine Clarity CLEAR Urine pH 6.5 5-9 Urine Specific [place] <=1.005 1.016-1.022 Urine Protein NEGATIVE NEGATIVE Urine Glucose (UA) NEGATIVE NEGATIVE Urine Ketones NEGATIVE NEGATIVE Urine Nitrite NEGATIVE NEGATIVE Urine Bilirubin NEGATIVE NEGATIVE Urine Urobilinogen 0.2 < = 1.0 MG/DL Urine Leukocyte Esterase NEGATIVE NEGATIVE Urine RBC (Auto) NEGATIVE NEGATIVE Urine RBC NONE /HPF Urine WBC NONE /HPF Urine Squamous Epithelial Cells NONE /HPF Urine Crystals NONE /LPF Urine Bacteria NEGATIVE /HPF Urine Casts NONE /LPF Urine Mucus NEGATIVE /LPF Urine Culture Indicated NO My Orders Orders - DONATO VELOZ APRN Ua Culture If Indicated (02/13/21 14:22) Vital Signs/I&O 02/13/21 14:20 Temp 36.1 Pulse 81 Resp 16 B/P (MAP) 124/61 (82) Pulse Ox 97 O2 Delivery Room Air Capillary Refill : Departure Impression Primary Impression: Interstitial cystitis (chronic) without hematuria Disposition: 01 HOME, SELF-CARE Condition: Stable Departure-Patient Inst. Decision time for Depature: 14:25 Referrals: ELY DOBBINS MD (PCP/Family) Primary Care Physician Patient Instructions: Urinary Tract Infection, Adult (DC) Add. Discharge Instructions: 1. Increase fluid intake 2. Follow-up with your doctor next week All discharge instructions reviewed with patient and/or family. Voiced understanding. Scripts Phenazopyridine HCl (Pyridium) 200 Mg Tablet 1 TAB PO TID, #9 TAB Prov: DONATO VELOZ APRN 02/13/21 DONATO VELOZ APRN Feb 13, 2021 14:26
[2021-02-13] MEDS ORDERED: CEFU250T80 PO (14:30)
[2021-02-13 14:31] LABS: BILIRUBIN,URINE NEGATIVE (NEGATIVE); CLARITY,URINE CLEAR; COLOR,URINE YELLOW; GLUCOSE, URINE (UA) NEGATIVE (NEGATIVE); KETONES,URINE NEGATIVE (NEGATIVE); LEUKOCYTE ESTERASE ,URINE NEGATIVE (NEGATIVE); NITRITE,URINE NEGATIVE (NEGATIVE); PH,URINE 6.5 (5-9); PROTEIN,URINE NEGATIVE (NEGATIVE)
[2021-02-13 14:50] LABS: BACTERIA,URINE NEGATIVE /HPF
[2021-02-13 15:00] VITALS: BP 124/61
== END 2021-02-13 15:00 | disposition home or self-care (01) ==
LOC: EDUNIT# 14:12 → ER 14:14
DX: N30.10 Interstitial cystitis (chronic) without hematuria (principal); J44.9 Chronic obstructive pulmonary disease, unspecified; E03.9 Hypothyroidism, unspecified; E11.9 Type 2 diabetes mellitus without complications; Z77.22 Contact with and (suspected) exposure to environmental tobacco smoke (acute) (chronic); Z88.2 Allergy status to sulfonamides; Z79.890 Hormone replacement therapy; Z79.52 Long term (current) use of systemic steroids; Z79.01 Long term (current) use of anticoagulants
CPT/HCPCS: 81000; 99282

== ENCOUNTER 2021-05-01 21:54 | Emergency (ER) | payer MEDICARE, MEDICAID ==
[~2021-05-01] VITALS: Ht 177.8 cm; Wt 68.0 kg
[~2021-05-01 21:54] MED LIST changes: +ACYC-108 PO; -ACYC200C PO
[2021-05-01 22:30] VITALS: BP 122/67
[2021-05-01 22:44] LABS: BILIRUBIN,URINE NEGATIVE (NEGATIVE); CLARITY,URINE CLEAR; COLOR,URINE YELLOW; GLUCOSE, URINE (UA) NEGATIVE (NEGATIVE); KETONES,URINE NEGATIVE (NEGATIVE); LEUKOCYTE ESTERASE ,URINE NEGATIVE (NEGATIVE); NITRITE,URINE NEGATIVE (NEGATIVE); PH,URINE 7.5 (5-9); PROTEIN,URINE NEGATIVE (NEGATIVE)
[2021-05-01 22:50] LABS: BACTERIA,URINE NEGATIVE /HPF; SQUAMOUS EPITHELIAL CELL,UR RARE /HPF
== END 2021-05-02 00:35 | disposition left against medical advice (07) ==
LOC: EDUNIT# 21:54 → ER 21:55
DX: H57.10 Ocular pain, unspecified eye (principal); F17.210 Nicotine dependence, cigarettes, uncomplicated
CPT/HCPCS: 81000; 99282

== ENCOUNTER 2021-08-17 14:07 | Emergency (ER) | payer MEDICARE, MEDICAID ==
[~2021-08-17] VITALS: Ht 177.8 cm; Wt 68.0 kg
--- NOTE | 2021-08-17 14:50 | ED GU-Female ---
General Chief Complaint: - Reproductive Stated Complaint: KIDNEY PAIN Nursing Triage Note: PT TO RM 7 BY WHEELCHAIR WITH COMPLAINT OF BACK PAIN AND POSSIBLY PASSING A KIDNEY STONE. STATES HAS HX OF KIDNEY STONES AND UTI. Source: patient Exam Limitations: no limitations History of Present Illness Date Seen by Provider: Aug 17, 2021 Time Seen by Provider: 16:15 Initial Comments 60yoF with PMH of hypothyroid, Lupus, vaginal mesh placed, recurrent UTI's coming in due to severe low back pain and groin pain. Dx with UTI 3 weeks ago. Got macrobid, then changed to keflex. Symptoms never really resolved. Now she is still having dysuria now with the flank pain. Severe pain started yesterday. Has associated n/v. Feels like her previous kidney stone. Never had ureteral stents placed. Allergies and Home Medications Allergies Coded Allergies: Sulfa (Sulfonamide Antibiotics) (Verified Allergy, Unknown, 09/13/15) Patient Home Medication List Home Medication List Reviewed: Yes Albuterol Sulfate (Ventolin Hfa) 18 Gm Hfa.aer.ad, 2 PUFF PO Q6H PRN for SHORTNESS OF BREATH, (Reported) Entered as Reported by: RONEY ARTEAGA on 04/03/20 0951 Apixaban (Eliquis) 5 Mg Tablet, 5 MG PO BID Prescribed by: IRINA MOLINA on 01/24/21 2357 Carisoprodol (Carisoprodol) 350 Mg Tablet, 350 MG PO TID, (Reported) Entered as Reported by: RONEY ARTEAGA on 04/03/20 0951 Cefdinir (Cefdinir) 300 Mg Capsule, 300 MG PO BID Prescribed by: KENDRA TRUJILLO on 09/08/20 1528 Ceftriaxone Sodium (Ceftriaxone) 1 Gm Vial, 1 GM IJ DAILY Prescribed by: NATALIO PRECIADO on 04/04/20 1242 Cephalexin (Cephalexin) 500 Mg Tablet, 500 MG PO BID Prescribed by: IRINA MOLINA on 01/24/21 2357 Estradiol (Estradiol Patch Twice weekly 0.05mg/hr) 1 Each Patch.tdwk, 1 EACH TD MON,FRI, (Reported) Entered as Reported by: RONEY ARTEAGA on 04/03/20 1029 Fexofenadine HCl (Azul Allergy) 180 Mg Tablet, 180 MG PO DAILY, (Reported) Entered as Reported by: RONEY ARTEAGA on 04/03/20 1033 Hydroxychloroquine Sulfate (Plaquenil) 200 Mg Tablet, 200 MG PO HS, (Reported) Entered as Reported by: JU RAE on 10/13/16 1632 Ketorolac Tromethamine (Ketorolac Tromethamine) 10 Mg Tablet, 10 MG PO Q8H Prescribed by: SNEHAL DYE on 08/17/21 1610 Levothyroxine Sodium (Levothyroxine Sodium) 88 Mcg Tablet, 88 MCG PO DAILY, (Rep orted) Entered as Reported by: JU RAE on 10/13/16 1632 Ondansetron (Ondansetron Odt) 4 Mg Tab.rapdis, 4 MG PO Q4H Prescribed by: KENDRA TRUJILLO on 09/08/20 1539 Paroxetine HCl (Paroxetine HCl) 40 Mg Tablet, 40 MG PO DAILY, (Reported) Entered as Reported by: RONEY ARTEAGA on 04/03/20 0951 Phenazopyridine HCl (Pyridium) 200 Mg Tablet, 1 TAB PO TID Prescribed by: KENDRA TRUJILLO on 09/08/20 1528 Phenazopyridine HCl (Pyridium) 200 Mg Tablet, 1 TAB PO TID Prescribed by: DONATO VELOZ on 02/13/21 1426 Phenazopyridine HCl (Pyridium) 100 Mg Tablet, 100 MG PO TID Prescribed by: SNEHAL DYE on 08/17/21 1610 Prednisone (Prednisone) 10 Mg Tab, 10 MG PO HS, (Reported) Entered as Reported by: RONEY ARTEAGA on 04/03/20 0951 Sumatriptan Succinate (Sumatriptan Succinate) 100 Mg Tablet, 100 MG PO BID PRN for MIGRAINE, (Reported) Entered as Reported by: RONEY ARTEAGA on 04/03/20 0953 Review of Systems Review of Systems Constitutional: No chills EENTM: No blurred vision Respiratory: No cough, No short of breath Cardiovascular: No chest pain Gastrointestinal: No abdominal pain, No diarrhea; nausea, vomiting Genitourinary: burning, dysuria, pain Musculoskeletal: no symptoms reported, back pain Skin: no symptoms reported Psychiatric/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: No Symptoms Reported Endocrine: No Symptoms Reported Hematologic/Lymphatic: No Symptoms Reported All Other Systemes Reviewed Negative Unless Noted: Yes Past Dptvapa-Prnvxj-Czmtku Hx Patient Social History Tobacco Use?: Yes Tobacco type used: Cigars Smoking Status: Current Everyday Smoker Use of E-Cig and/or Vaping dev: No Substance use?: No Alcohol Use?: No Pt feels they are or have been: No Immunizations Up To Date Tetanus Booster (TDap): Unknown Seasonal Allergies Seasonal Allergies: No Past Medical History Surgeries: Yes Bladder Surgery, Hysterectomy Respiratory: Yes COPD Cardiac: No 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 Multiple Sclerosis [employer] History: Menopausal Genitourinary: Yes (bladder issues related to mesh, chronic abdominal pelvic pain) UTI-Chronic Gastrointestinal: No Musculoskeletal: Yes Chronic Back Pain Endocrine: Yes Hypothyroidsim, Diabetes, Non-Insulin dep, Lupus HEENT: No Cancer: No Psychosocial: No Integumentary: No Blood Disorders: No Family Medical History Cardiovascular disease 19 FATHER Congenital disease G8 SISTER (a muscle disease that is hereditary) Diabetes mellitus 19 FATHER Thyroid disease 19 MOTHER Physical Exam Vital Signs Vital Signs - First Documented 08/17/21 14:26 Pulse 93 Resp 16 B/P (MAP) 134/73 (93) Pulse Ox 98 O2 Delivery Room Air Capillary Refill : Less Than 3 Seconds Height, Weight, BMI Height: 5'10.00" Weight: 125lbs. oz. 56.311727hb; 21.00 BMI Method:Stated General Appearance: WD/WN, no apparent distress HEENT: PERRL/EOMI, normal ENT inspection, pharynx normal Neck: non-tender, full range of motion, supple, normal inspection Cardiovascular: regular rate, rhythm, no edema, no murmur Respiratory: chest non-tender, lungs clear, normal breath sounds, no respiratory distress, no accessory muscle use Gastrointestinal: normal bowel sounds, non tender, soft; No distended, No guarding, No rebound Back: normal inspection, no vertebral tenderness, CVA tenderness (L) Extremities: normal range of motion, non-tender, normal inspection, no pedal edema, no calf tenderness, normal capillary refill Neurologic/Psychiatric: no motor/sensory deficits, alert, normal mood/affect Skin: normal color, warm/dry Lymphatic: no adenopathy Progress/Results/Core Measures Suspected Sepsis SIRS Temperature: Pulse: 93 Respiratory Rate: 16 Laboratory Tests 08/17/21 14:30: White Blood Count 15.2H Blood Pressure 134 /73 Mean: 93 Laboratory Tests 10/18/21 14:30: Creatinine 0.79, Platelet Count 312 Results/Orders Lab Results Laboratory Tests Test 08/17/21 14:24 08/17/21 14:30 Range/Units Urine Color YELLOW Urine Clarity CLEAR Urine pH 7.5 5-9 Urine Specific [place] 1.010 L 1.016-1.022 Urine Protein NEGATIVE NEGATIVE Urine Glucose (UA) NEGATIVE NEGATIVE Urine Ketones NEGATIVE NEGATIVE Urine Nitrite NEGATIVE NEGATIVE Urine Bilirubin NEGATIVE NEGATIVE Urine Urobilinogen 0.2 < = 1.0 MG/DL Urine Leukocyte Esterase NEGATIVE NEGATIVE Urine RBC (Auto) NEGATIVE NEGATIVE Urine RBC NONE /HPF Urine WBC NONE /HPF Urine Squamous Epithelial Cells 0-2 /HPF Urine Crystals NONE /LPF Urine Bacteria NEGATIVE /HPF Urine Casts NONE /LPF Urine Mucus NEGATIVE /LPF Urine Culture Indicated NO White Blood Count 15.2 H 4.3-11.0 10^3/uL Red Blood Count 4.75 3.80-5.11 10^6/uL Hemoglobin 16.0 11.5-16.0 g/dL Hematocrit 48 35-52 % Mean Corpuscular Volume 101 H 80-99 fL Mean Corpuscular Hemoglobin 34 25-34 pg Mean Corpuscular Hemoglobin Concent 33 32-36 g/dL Red Cell Distribution Width 12.6 10.0-14.5 % Platelet Count 312 130-400 10^3/uL Mean Platelet Volume 9.7 9.0-12.2 fL Immature Granulocyte % (Auto) 0 % Neutrophils (%) (Auto) 66 42-75 % Lymphocytes (%) (Auto) 27 12-44 % Monocytes (%) (Auto) 6 0-12 % Eosinophils (%) (Auto) 1 0-10 % Basophils (%) (Auto) 0 0-10 % Neutrophils # (Auto) 10.0 H 1.8-7.8 X 10^3 Lymphocytes # (Auto) 4.1 H 1.0-4.0 X 10^3 Monocytes # (Auto) 0.9 0.0-1.0 X 10^3 Eosinophils # (Auto) 0.1 0.0-0.3 10^3/uL Basophils # (Auto) 0.1 0.0-0.1 10^3/uL Immature Granulocyte # (Auto) 0.0 0.0-0.1 10^3/uL Neutrophils % (Manual) 65 % Lymphocytes % (Manual) 26 % Monocytes % (Manual) 4 % Eosinophils % (Manual) 2 % Band Neutrophils 3 % Blood Morphology Comment NORMAL Sodium Level 136 135-145 MMOL/L Potassium Level 3.8 3.6-5.0 MMOL/L Chloride Level 102 98-107 MMOL/L Carbon Dioxide Level 22 21-32 MMOL/L Anion Gap 12 5-14 MMOL/L Blood Urea Nitrogen 5 L 7-18 MG/DL Creatinine 0.79 0.60-1.30 MG/DL Estimat Glomerular Filtration Rate 74 BUN/Creatinine Ratio 6 Glucose Level 60 *L 70-105 MG/DL Calcium Level 9.3 8.5-10.1 MG/DL My Orders Orders - SNEHAL DYE MD Morphine Injection (Morphine Injection (08/17/21 15:00) Ondansetron Injection (Zofran Injectio (08/17/21 15:00) Ct Abd/Pelvis Wo(Kidney Stone) (08/17/21 15:08) Basic Metabolic Panel (08/17/21 15:31) Cbc With Automated Diff (08/17/21 15:31) Ua Culture If Indicated (08/17/21 15:31) Manual Differential (08/17/21 14:30) Ketorolac Injection (Toradol Injection) (08/17/21 16:15) Medications Given in ED Current Medications Medications Dose Ordered Sig/Jens Route Start Time Stop Time Status Last Admin Dose Admin Morphine Sulfate 4 mg ONCE ONCE IVP 08/17/21 15:00 08/17/21 15:03 DC 08/17/21 15:08 4 MG Ondansetron HCl 4 mg ONCE ONCE IVP 08/17/21 15:00 08/17/21 15:03 DC 08/17/21 15:08 4 MG Vital Signs/I&O 08/17/21 14:26 Pulse 93 Resp 16 B/P (MAP) 134/73 (93) Pulse Ox 98 O2 Delivery Room Air Capillary Refill : Less Than 3 Seconds Blood Pressure Mean: 93 Progress Note : Progress Note 60-year-old female with above history coming into the ER due to suprapubic pain and left leg pain. ABCs were intact and vitals are stable on presentation. Physical exam with more so left flank pain than any abdominal pain. Labs significant for normal urinalysis without evidence of infection, and normal kidney function. CT imaging essentially normal with no ureterolithiasis or secondary signs of infection. Her symptoms in her suprapubic region and were consistent with her chronic interstitial cystitis. Will recommend symptom management and follow-up with urology. Discharged home in stable condition with strict return precautions. Diagnostic Imaging Diagonstic Imaging: CT Plain Films/CT/US/NM/MRI: abdomen, pelvis Comments [facility], [place] NAME: ANAIS [facility] REC#: [id number] PT STATUS: REG ER : 1960 PHYSICIAN: SNEHAL DYE MD ADMIT DATE: 08/17/21/ER Draft Date of Exam:08/17/21 CT ABD/PELVIS WO(KIDNEY STONE) PROCEDURE: CT urinary tract, rule out kidney stone. TECHNIQUE: Multiple contiguous axial images were obtained through the abdomen and pelvis without the use of intravenous contrast. Auto Exposure Controls were utilized during the CT exam to meet ALARA standards for radiation dose reduction. INDICATION: Left flank pain. COMPARISON: Comparison is made to the prior study from 01/05/2019. FINDINGS: The lung bases are clear. The liver, gallbladder, and bile ducts are normal. The spleen, pancreas, and adrenals are normal. The kidneys are normal in size, shape, and position. There is a 2.3 cm cyst in the lateral aspect of the left kidney, similar to the prior CT. There is a 4 mm nonobstructing calculus in the lower pole of the left kidney. The right kidney is normal. There is no hydronephrosis on either side. The ureters and bladder are normal. No acute bowel abnormality is seen. There is no obstruction evident. There is no free intraperitoneal air or fluid. There is no adenopathy. There is no acute bony abnormality. IMPRESSION: There is a 4 mm nonobstructing calculus in the left kidney. No acute abnormality is seen. Dictated on workstation # [id number] Dict: 08/17/21 1525 Trans: 08/17/21 1531 [id number] Interpreted by: MARTIN SENA MD Electronically signed by: Departure Impression Primary Impression: Interstitial cystitis (chronic) without hematuria Additional Impression: Suprapubic pain Disposition: 01 HOME, SELF-CARE Condition: Stable Departure-Patient Inst. Decision time for Depature: 16:06 Referrals: ELY DOBBINS MD (PCP/Family) Primary Care Physician Patient Instructions: Bladder Pain Syndrome (Interstitial Cystitis) ED Add. Discharge Instructions: Your CT scan did not show any active stone blockage in your kidney, but you do have a kidney stone that is sitting up there that at some point can pass. Your urine does not look infected as of right now. Your kidney function and her blood work is good as of right now. Try taking Pyridium (this will turn your urine orange), Toradol, and your regular [place] for pain. I do recommend you follow-up with [facility] as there are some things they can likely do for your pain- their number is [phone]. If you develop any fever, worsening of pain, or any other concerns then please come back to the ER. Scripts Phenazopyridine HCl (Pyridium) 100 Mg Tablet 100 MG PO TID for 3 Days, #9 TAB Prov: SNEHAL DYE MD 08/17/21 Ketorolac Tromethamine (Ketorolac Tromethamine) 10 Mg Tablet 10 MG PO Q8H for Pain for 4 Days, #12 TAB Prov: SNEHAL DYE MD 08/17/21 SNEHAL DYE MD Aug 17, 2021 14:50
[2021-08-17] MEDS ORDERED: morphine INJ 10 MG/ML 1ML (SYR OR VIAL) IVP ONE (15:00)
[2021-08-17] MEDS ORDERED: ONDANSETRON 4 MG/2 ML (SDV) Z0FRAN IVP ONE (15:00)
--- NOTE | 2021-08-17 15:31 | Diagnostic Imaging Report ---
PROCEDURE: CT urinary tract, rule out kidney stone. TECHNIQUE: Multiple contiguous axial images were obtained through the abdomen and pelvis without the use of intravenous contrast. Auto Exposure Controls were utilized during the CT exam to meet ALARA standards for radiation dose reduction. INDICATION: Left flank pain. COMPARISON: Comparison is made to the prior study from 01/05/2019. FINDINGS: The lung bases are clear. The liver, gallbladder, and bile ducts are normal. The spleen, pancreas, and adrenals are normal. The kidneys are normal in size, shape, and position. There is a 2.3 cm cyst in the lateral aspect of the left kidney, similar to the prior CT. There is a 4 mm nonobstructing calculus in the lower pole of the left kidney. The right kidney is normal. There is no hydronephrosis on either side. The ureters and bladder are normal. No acute bowel abnormality is seen. There is no obstruction evident. There is no free intraperitoneal air or fluid. There is no adenopathy. There is no acute bony abnormality. IMPRESSION: There is a 4 mm nonobstructing calculus in the left kidney. No acute abnormality is seen. Dictated by: Dictated on workstation # [id number]
[2021-08-17 15:39] LABS: BASOPHILS # (AUTO) 0.1 10^3/uL (0.0-0.1); BASOPHILS % (AUTO) 0 % (0-10); EOSINOPHILS # (AUTO) 0.1 10^3/uL (0.0-0.3); EOSINOPHILS % (AUTO) 1 % (0-10); HEMATOCRIT 48 % (35-52); LYMPHOCYTES # (AUTO) 4.1 X 10^3 (1.0-4.0); LYMPHOCYTES % (AUTO) 27 % (12-44); MEAN CORPUSCULAR HEMOGLOBIN 34 pg (25-34); MEAN CORPUSCULAR HGB CONC 33 g/dL (32-36); MEAN CORPUSCULAR VOLUME 101 fL (80-99); MEAN PLATELET VOLUME 9.7 fL (9.0-12.2); MONOCYTES # (AUTO) 0.9 X 10^3 (0.0-1.0); MONOCYTES % (AUTO) 6 % (0-12); NEUTROPHILS % (AUTO) 66 % (42-75); PLATELET COUNT 312 10^3/uL (130-400); WHITE BLOOD COUNT 15.2 10^3/uL (4.3-11.0)
[2021-08-17 15:40] LABS: BILIRUBIN,URINE NEGATIVE (NEGATIVE); CLARITY,URINE CLEAR; COLOR,URINE YELLOW; GLUCOSE, URINE (UA) NEGATIVE (NEGATIVE); KETONES,URINE NEGATIVE (NEGATIVE); LEUKOCYTE ESTERASE ,URINE NEGATIVE (NEGATIVE); NITRITE,URINE NEGATIVE (NEGATIVE); PH,URINE 7.5 (5-9); PROTEIN,URINE NEGATIVE (NEGATIVE)
[2021-08-17 15:43] LABS: POTASSIUM 3.8 MMOL/L (3.6-5.0)
[2021-08-17 15:44] LABS: CALCIUM 9.3 MG/DL (8.5-10.1)
[2021-08-17 15:47] LABS: BACTERIA,URINE NEGATIVE /HPF; SQUAMOUS EPITHELIAL CELL,UR 0-2 /HPF
[2021-08-17 15:49] LABS: CREATININE SERUM 0.79 MG/DL (0.60-1.30)
[2021-08-17 16:00] LABS: BAND NEUTROPHILS 3 %; EOSINOPHILS % (MANUAL) 2 %; LYMPHOCYTES % (MANUAL) 26 %; MONOCYTES % (MANUAL) 4 %; NEUTROPHILS % (MANUAL) 65 %; RBC MORPH NORMAL
[2021-08-17] MEDS ORDERED: KETO10TA PO (16:10)
[2021-08-17] MEDS ORDERED: PHEN-639 PO (16:10)
[2021-08-17] MEDS ORDERED: KETOROLAC 30 MG/ML VIAL IVP ONE (16:15)
[2021-08-17 16:23] VITALS: BP 108/81
== END 2021-08-17 16:23 | disposition home or self-care (01) ==
LOC: EDUNIT# 14:07 → ER 14:09
DX: N30.10 Interstitial cystitis (chronic) without hematuria (principal); J44.9 Chronic obstructive pulmonary disease, unspecified; E03.9 Hypothyroidism, unspecified; E11.9 Type 2 diabetes mellitus without complications; F17.290 Nicotine dependence, other tobacco product, uncomplicated; Z79.890 Hormone replacement therapy; Z79.01 Long term (current) use of anticoagulants; Z79.899 Other long term (current) drug therapy
CPT/HCPCS: 36415; 74176; 80048; 81000; 85007; 85027

== ENCOUNTER 2021-08-27 14:01 | Emergency (ER) | payer MEDICARE, MEDICAID ==
[~2021-08-27] VITALS: Ht 178 cm; Wt 68.0 kg
[2021-08-27 14:29] LABS: BILIRUBIN,URINE NEGATIVE (NEGATIVE); CLARITY,URINE CLEAR; COLOR,URINE YELLOW; GLUCOSE, URINE (UA) NEGATIVE (NEGATIVE); KETONES,URINE NEGATIVE (NEGATIVE); LEUKOCYTE ESTERASE ,URINE 3+ (NEGATIVE); NITRITE,URINE NEGATIVE (NEGATIVE); PROTEIN,URINE NEGATIVE (NEGATIVE)
[2021-08-27] MEDS ORDERED: LACTATED RINGERS 1,000 ML IV ONE (14:30)
[2021-08-27 14:35] LABS: BASOPHILS # (AUTO) 0.1 10^3/uL (0.0-0.1); BASOPHILS % (AUTO) 1 % (0-10); EOSINOPHILS # (AUTO) 0.1 10^3/uL (0.0-0.3); EOSINOPHILS % (AUTO) 1 % (0-10); HEMATOCRIT 45 % (35-52); HEMOGLOBIN 15.4 g/dL (11.5-16.0); LYMPHOCYTES # (AUTO) 4.2 10^3/uL (1.0-4.0); LYMPHOCYTES % (AUTO) 38 % (12-44); MEAN CORPUSCULAR HEMOGLOBIN 34 pg (25-34); MEAN CORPUSCULAR HGB CONC 34 g/dL (32-36); MEAN CORPUSCULAR VOLUME 99 fL (80-99); MEAN PLATELET VOLUME 9.1 fL (9.0-12.2); MONOCYTES # (AUTO) 0.8 10^3/uL (0.0-1.0); MONOCYTES % (AUTO) 7 % (0-12); NEUTROPHILS # (AUTO) 5.8 10^3/uL (1.8-7.8); NEUTROPHILS % (AUTO) 53 % (42-75); PLATELET COUNT 289 10^3/uL (130-400)
[2021-08-27 14:38] LABS: BACTERIA,URINE MODERATE /HPF; WBC,URINE >100 /HPF
[2021-08-27 14:55] LABS: ALBUMIN 3.8 GM/DL (3.2-4.5)
[2021-08-27 14:56] LABS: POTASSIUM 3.6 MMOL/L (3.6-5.0)
[2021-08-27 14:57] LABS: CALCIUM 9.2 MG/DL (8.5-10.1)
[2021-08-27 14:58] LABS: TOTAL PROTEIN 6.6 GM/DL (6.4-8.2)
--- NOTE | 2021-08-27 14:59 | ED GU-Female ---
General Chief Complaint: - Reproductive Stated Complaint: UNABLE TO URINATE Source: patient Exam Limitations: no limitations History of Present Illness Date Seen by Provider: Aug 27, 2021 Time Seen by Provider: 14:13 Initial Comments Patient to the ER by private conveyance with chief complaint of suprapubic pain, dysuria without hematuria. She had a kidney stone on Tuesday discovered by CT and her back and flank pain has since gone away. She is not on antibiotics. She states she has frequent UTIs and has had multiple surgeries at [facility] for her bladder. She is had a hysterectomy but no other intra-abdominal surgeries. She has had past bowel movements normally. No fevers chills nausea vomiting anymore. She has had sweats with the pain however. She does not have a urologist locally. Allergies and Home Medications Allergies Coded Allergies: Sulfa (Sulfonamide Antibiotics) (Verified Allergy, Unknown, 09/13/15) Patient Home Medication List Home Medication List Reviewed: Yes Albuterol Sulfate (Ventolin Hfa) 18 Gm Hfa.aer.ad, 2 PUFF PO Q6H PRN for SHORTNESS OF BREATH, (Reported) Entered as Reported by: RONEY ARTEAGA on 04/03/20 0951 Apixaban (Eliquis) 5 Mg Tablet, 5 MG PO BID Prescribed by: IRINA MOLINA on 01/24/21 2357 Carisoprodol (Carisoprodol) 350 Mg Tablet, 350 MG PO TID, (Reported) Entered as Reported by: RONEY ARTEAGA on 04/03/20 0951 Cefdinir (Cefdinir) 300 Mg Capsule, 300 MG PO BID Prescribed by: KENDRA TRUJILLO on 09/08/20 1528 Ceftriaxone Sodium (Ceftriaxone) 1 Gm Vial, 1 GM IJ DAILY Prescribed by: NATALIO PRECIADO on 04/04/20 1242 Cephalexin (Cephalexin) 500 Mg Tablet, 500 MG PO BID Prescribed by: IRINA MOLINA on 01/24/21 2357 Estradiol (Estradiol Patch Twice weekly 0.05mg/hr) 1 Each Patch.tdwk, 1 EACH TD MON,FRI, (Reported) Entered as Reported by: RONEY ARTEAGA on 04/03/20 1029 Fexofenadine HCl (Azul Allergy) 180 Mg Tablet, 180 MG PO DAILY, (Reported) Entered as Reported by: RONEY ARTEAGA on 04/03/20 1033 Hydroxychloroquine Sulfate (Plaquenil) 200 Mg Tablet, 200 MG PO HS, (Reported) Entered as Reported by: JU RAE on 10/13/16 1632 Ketorolac Tromethamine (Ketorolac Tromethamine) 10 Mg Tablet, 10 MG PO Q8H Prescribed by: SNEHAL DYE on 08/17/21 1610 Levothyroxine Sodium (Levothyroxine Sodium) 88 Mcg Tablet, 88 MCG PO DAILY, (Reported) Entered as Reported by: JU RAE on 10/13/16 1632 Ondansetron (Ondansetron Odt) 4 Mg Tab.rapdis, 4 MG PO Q4H Prescribed by: KENDRA TRUJILLO on 09/08/20 1539 Paroxetine HCl (Paroxetine HCl) 40 Mg Tablet, 40 MG PO DAILY, (Reported) Entered as Reported by: RONEY ARTEAGA on 04/03/20 0951 Phenazopyridine HCl (Pyridium) 200 Mg Tablet, 1 TAB PO TID Prescribed by: KENDRA TRUJILLO on 09/08/20 1528 Phenazopyridine HCl (Pyridium) 200 Mg Tablet, 1 TAB PO TID Prescribed by: DONATO VELOZ on 02/13/21 1426 Phenazopyridine HCl (Pyridium) 100 Mg Tablet, 100 MG PO TID Prescribed by: SNEHAL DYE on 08/17/21 1610 Prednisone (Prednisone) 10 Mg Tab, 10 MG PO HS, (Reported) Entered as Reported by: RONEY ARTEAGA on 04/03/20 0951 Sumatriptan Succinate (Sumatriptan Succinate) 100 Mg Tablet, 100 MG PO BID PRN f or MIGRAINE, (Reported) Entered as Reported by: RONEY ARTEAGA on 04/03/20 0953 Review of Systems Review of Systems Constitutional: No chills, No diaphoresis EENTM: No ear discharge, No ear pain Respiratory: No cough, No short of breath Cardiovascular: No chest pain, No edema, No palpitations Gastrointestinal: abdominal pain (Suprapubic); No constipation, No diarrhea, No nausea, No vomiting Genitourinary: denies burning, denies discharge; dysuria, frequency : No Musculoskeletal: No back pain, No joint pain All Other Systemes Reviewed Negative Unless Noted: Yes Past Snafupp-Nhjdet-Wiliyj Hx Patient Social History Tobacco Use?: No Use of E-Cig and/or Vaping dev: No Substance use?: No Immunizations Up To Date Tetanus Booster (TDap): Unknown Seasonal Allergies Seasonal Allergies: No Past Medical History Surgeries: Yes Bladder Surgery, Hysterectomy Respiratory: Yes COPD Cardiac: No 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 Multiple Sclerosis [employer] History: Menopausal Genitourinary: Yes (bladder issues related to mesh, chronic abdominal pelvic pain) UTI-Chronic Gastrointestinal: No Musculoskeletal: Yes Chronic Back Pain Endocrine: Yes Hypothyroidsim, Diabetes, Non-Insulin dep, Lupus HEENT: No Cancer: No Psychosocial: No Integumentary: No Blood Disorders: No Family Medical History Cardiovascular disease 19 FATHER Congenital disease G8 SISTER (a muscle disease that is hereditary) Diabetes mellitus 19 FATHER Thyroid disease 19 MOTHER Physical Exam Vital Signs Capillary Refill : Height, Weight, BMI Height: 5'10.00" Weight: 125lbs. oz. 56.989338ml; 21.00 BMI Method:Stated General Appearance: WD/WN, no apparent distress HEENT: PERRL/EOMI, pharynx normal Neck: full range of motion, normal inspection Cardiovascular: normal peripheral pulses, regular rate, rhythm Respiratory: lungs clear, normal breath sounds, no respiratory distress, no accessory muscle use Gastrointestinal: normal bowel sounds, guarding (Suprapubic), tenderness (Suprapubic), other (No mesenteric signs) Neurologic/Psychiatric: alert, normal mood/affect, oriented x 3 Skin: normal color, warm/dry Progress/Results/Core Measures Suspected Sepsis SIRS Temperature: Pulse: Respiratory Rate: Laboratory Tests 08/27/21 14:22: White Blood Count 11.0 Blood Pressure / Mean: Laboratory Tests 08/27/21 14:22: Creatinine 0.79, Platelet Count 289, Total Bilirubin 0.5 Results/Orders Lab Results Laboratory Tests Test 08/27/21 14:10 08/27/21 14:22 Range/Units Urine Color YELLOW Urine Clarity CLEAR Urine pH 8.0 5-9 Urine Specific [place] 1.020 1.016-1.022 Urine Protein NEGATIVE NEGATIVE Urine Glucose (UA) NEGATIVE NEGATIVE Urine Ketones NEGATIVE NEGATIVE Urine Nitrite NEGATIVE NEGATIVE Urine Bilirubin NEGATIVE NEGATIVE Urine Urobilinogen 0.2 < = 1.0 MG/DL Urine Leukocyte Esterase 3+ H NEGATIVE Urine RBC (Auto) TRACE-I H NEGATIVE Urine RBC 2-5 H /HPF Urine WBC >100 H /HPF Urine Squamous Epithelial Cells NONE /HPF Urine Crystals NONE /LPF Urine Bacteria MODERATE H /HPF Urine Casts NONE /LPF Urine Mucus NEGATIVE /LPF Urine Culture Indicated YES White Blood Count 11.0 4.3-11.0 10^3/uL Red Blood Count 4.58 3.80-5.11 10^6/uL Hemoglobin 15.4 11.5-16.0 g/dL Hematocrit 45 35-52 % Mean Corpuscular Volume 99 80-99 fL Mean Corpuscular Hemoglobin 34 25-34 pg Mean Corpuscular Hemoglobin Concent 34 32-36 g/dL Red Cell Distribution Width 12.4 10.0-14.5 % Platelet Count 289 130-400 10^3/uL Mean Platelet Volume 9.1 9.0-12.2 fL Immature Granulocyte % (Auto) 1 % Neutrophils (%) (Auto) 53 42-75 % Lymphocytes (%) (Auto) 38 12-44 % Monocytes (%) (Auto) 7 0-12 % Eosinophils (%) (Auto) 1 0-10 % Basophils (%) (Auto) 1 0-10 % Neutrophils # (Auto) 5.8 1.8-7.8 10^3/uL Lymphocytes # (Auto) 4.2 H 1.0-4.0 10^3/uL Monocytes # (Auto) 0.8 0.0-1.0 10^3/uL Eosinophils # (Auto) 0.1 0.0-0.3 10^3/uL Basophils # (Auto) 0.1 0.0-0.1 10^3/uL Immature Granulocyte # (Auto) 0.1 0.0-0.1 10^3/uL Sodium Level 137 135-145 MMOL/L Potassium Level 3.6 3.6-5.0 MMOL/L Chloride Level 104 98-107 MMOL/L Carbon Dioxide Level 22 21-32 MMOL/L Anion Gap 11 5-14 MMOL/L Blood Urea Nitrogen 6 L 7-18 MG/DL Creatinine 0.79 0.60-1.30 MG/DL Estimat Glomerular Filtration Rate 74 BUN/Creatinine Ratio 8 Glucose Level 86 70-105 MG/DL Calcium Level 9.2 8.5-10.1 MG/DL Corrected Calcium 9.4 8.5-10.1 MG/DL Total Bilirubin 0.5 0.1-1.0 MG/DL Aspartate Amino Transf (AST/SGOT) 25 5-34 U/L Alanine Aminotransferase (ALT/SGPT) 19 0-55 U/L Alkaline Phosphatase 39 L 40-136 U/L Total Protein 6.6 6.4-8.2 GM/DL Albumin 3.8 3.2-4.5 GM/DL My Orders Orders - IRINA MOLINA Ua Culture If Indicated (08/27/21 14:14) Cbc With Automated Diff (08/27/21 14:18) Comprehensive Metabolic Panel (08/27/21 14:18) Lactated Ringers (Lr 1000 Ml Iv Solution (08/27/21 14:30) Ed Iv/Invasive Line Start (08/27/21 14:18) Urine Culture (08/27/21 14:10) Cbc With Automated Diff (08/27/21 14:53) Ct Abd/Pelvis Wo(Kidney Stone) (08/27/21 14:53) Ketorolac Injection (Toradol Injection) (08/27/21 15:00) Fentanyl Inj (Sublimaze Injection) (08/27/21 15:45) Ceftriaxone (Rocephin) (08/27/21 15:45) Medications Given in ED Current Medications Medications Dose Ordered Sig/Jens Route Start Time Stop Time Status Last Admin Dose Admin Ketorolac Tromethamine 30 mg ONCE ONCE IVP 08/27/21 15:00 08/27/21 15:01 DC 08/27/21 15:01 30 MG Lactated Ringer's 1,000 ml @ 0 mls/hr Q0M ONCE IV 08/27/21 14:30 08/27/21 14:31 DC 08/27/21 15:01 0 MLS/HR Vital Signs/I&O Capillary Refill : Progress Note #1: Time: 14:59 Progress Note Toradol for pain. There is no KUB to compare. Plan to get a CT of the abdomen and pelvis and and give her a liter of fluids as she appears to have dry oral mucosa. Progress Note #2: Time: 15:37 Progress Note Patient denies significant pain relief from Toradol. 50 mcg of fentanyl ordered. No evidence of a kidney stone seen on CT however she has significant evidence for UTI. Rocephin IV Diagnostic Imaging Diagonstic Imaging: CT Plain Films/CT/US/NM/MRI: abdomen, pelvis Comments [facility]. [place], [place] NAME: A[facility]IS [facility] REC#: [id number] PT STATUS: REG ER : 1960 PHYSICIAN: IRINA MOLINA MD ADMIT DATE: 08/27/21/ER Draft Date of Exam:08/27/21 CT ABD/PELVIS WO(KIDNEY STONE) PROCEDURE: CT urinary tract, rule out kidney stone. TECHNIQUE: Multiple contiguous axial images were obtained through the abdomen and pelvis without the use of intravenous contrast. Auto Exposure Controls were utilized during the CT exam to meet ALARA standards for radiation dose reduction. INDICATION: Kidney stones, pelvic pain, dysuria. COMPARISON: 01/05/2019 FINDINGS: Benign masses are seen projecting out of the bilateral neural foramen at the T11-T12 level which likely represent perineural cysts or possibly a benign neurogenic tumor. Nonetheless, these are stable since 2019 examination. Lung bases are clear. There is a cyst in the mid aspect of the left kidney which is stable. Nonobstructive stone measuring 4 mm seen in the inferior pole of left kidney. There is no hydronephrosis or hydroureter. The right kidney is unremarkable. The urinary bladder is slightly distended. The gallbladder, additional solid organs, vascular structures and bowel are normal. There is no inflammatory process. No free air or free fluid seen. There is no lymphadenopathy or hernia. Osseous structures are age-appropriate. IMPRESSION: 1. Slightly distended urinary bladder, no inflammatory process identified. 2. Stable left renal cyst. 43. Stable nonobstructive stone inferior pole of the left kidney. No hydronephrosis. Dictated on workstation # [id number] Dict: 08/27/21 1515 Trans: 08/27/21 1521 [facility] [id number] Interpreted by: ELROY CANELA Electronically signed by: Reviewed: Reviewed by Me Departure Impression Primary Impression: UTI (urinary tract infection) Qualified Codes: N30.01 - Acute cystitis with hematuria Disposition: HOME, SELF-CARE Condition: Stable (ERASED) Departure-Patient Inst. Decision time for Depature: 15:52 Referrals: ELY DOBBINS MD (PCP/Family) Primary Care Physician RANDI GAYTAN MD Patient Instructions: Urinary Tract Infection, Adult (DC) Add. Discharge Instructions: Cefdinir 1 capsule twice a day for the next 7 days. You may use AZO/Pyridium twice a day for 2 to 3 days for relief of pain symptoms. Tylenol 1000 mg every 8 hours as necessary for pain. Ibuprofen 800 mg every 8 hours necessary for pain. Hydrocodone 1 tablet every 6 hours necessary for breakthrough pain. Promptly return to the ER for intractable fever vomiting or other worrisome symptoms. All discharge instructions reviewed with patient and/or family. Voiced understanding. Scripts Hydrocodone/Acetaminophen (Hydrocodone-Acetamin 5-325 mg) 1 Each Tablet 1 TAB PO Q6H PRN for PAIN-MODERATE (5-7), #8 TAB 0 Refills Prov: IRINA MOLINA 08/27/21 Cefdinir (Cefdinir) 300 Mg Capsule 300 MG PO BID for 7 Days, #14 CAP 0 Refills Prov: IRINA MOLINA 08/27/21 Copy Copies To 1: RANDI GAYTAN MD, TITUS J Aug 27, 2021 14:59
[2021-08-27 15:00] LABS: BILIRUBIN,TOTAL 0.5 MG/DL (0.1-1.0)
[2021-08-27] MEDS ORDERED: KETOROLAC 30 MG/ML VIAL IVP ONE (15:00)
[2021-08-27 15:02] LABS: CREATININE SERUM 0.79 MG/DL (0.60-1.30)
--- NOTE | 2021-08-27 15:21 | Diagnostic Imaging Report ---
PROCEDURE: CT urinary tract, rule out kidney stone. TECHNIQUE: Multiple contiguous axial images were obtained through the abdomen and pelvis without the use of intravenous contrast. Auto Exposure Controls were utilized during the CT exam to meet ALARA standards for radiation dose reduction. INDICATION: Kidney stones, pelvic pain, dysuria. COMPARISON: 01/05/2019 FINDINGS: Benign masses are seen projecting out of the bilateral neural foramen at the T11-T12 level which likely represent perineural cysts or possibly a benign neurogenic tumor. Nonetheless, these are stable since 2019 examination. Lung bases are clear. There is a cyst in the mid aspect of the left kidney which is stable. Nonobstructive stone measuring 4 mm seen in the inferior pole of left kidney. There is no hydronephrosis or hydroureter. The right kidney is unremarkable. The urinary bladder is slightly distended. The gallbladder, additional solid organs, vascular structures and bowel are normal. There is no inflammatory process. No free air or free fluid seen. There is no lymphadenopathy or hernia. Osseous structures are age-appropriate. IMPRESSION: 1. Slightly distended urinary bladder, no inflammatory process identified. 2. Stable left renal cyst. 43. Stable nonobstructive stone inferior pole of the left kidney. No hydronephrosis. Dictated by: Dictated on workstation # [id number]
[2021-08-27] MEDS ORDERED: cefTRIAXone 1,000 MG in WATER (STERILE) FOR INJECTION 10 ML IV ONE (15:45)
[2021-08-27] MEDS ORDERED: fentaNYL INJ 100 MCG/2 ML AMP IVP ONE (15:45)
[2021-08-27] MEDS ORDERED: CEFD300C3 PO (15:53)
[2021-08-27] MEDS ORDERED: ACHD5005 PO (15:53)
[2021-08-27 19:23] VITALS: BP 114/71
== END 2021-08-27 16:19 | disposition home or self-care (01) ==
LOC: EDUNIT# 14:01 → ER 14:03
DX: N39.0 Urinary tract infection, site not specified (principal); J44.9 Chronic obstructive pulmonary disease, unspecified; E03.9 Hypothyroidism, unspecified; E11.9 Type 2 diabetes mellitus without complications; Z79.01 Long term (current) use of anticoagulants; Z79.890 Hormone replacement therapy; Z79.899 Other long term (current) drug therapy
CPT/HCPCS: 36415; 74176; 80053; 81000; 85025; 87077; 87088; 87186

== ENCOUNTER 2021-10-17 13:58 | Emergency (ER) | payer MEDICARE, MEDICAID ==
[~2021-10-17] VITALS: Ht 177 cm; Wt 68.0 kg
[~2021-10-17 13:58] MED LIST changes: +ACHD5005 PO; +CYCL10TA25 PO; -CYCL10TA9 PO
--- NOTE | 2021-10-17 14:12 | ED GU-Female ---
General Chief Complaint: - Reproductive Stated Complaint: UTI SYMPTOMS Source: patient Exam Limitations: no limitations History of Present Illness Date Seen by Provider: Oct 17, 2021 Time Seen by Provider: 14:11 Initial Comments Ongoing urinary frequency and burning. She has been on Bactrim, Omnicef and Keflex. Was referred to ER by primary care today because she thinks she might need a PICC line. Timing/Duration: getting worse Severity/Quality: moderate Radiation: none Prior Genitourinary Problems: none Associated Symptoms: denies symptoms Allergies and Home Medications Allergies Coded Allergies: Sulfa (Sulfonamide Antibiotics) (Verified Allergy, Unknown, 09/13/15) Patient Home Medication List Home Medication List Reviewed: Yes Albuterol Sulfate (Ventolin Hfa) 18 Gm Hfa.aer.ad, 2 PUFF PO Q6H PRN for SHORTNESS OF BREATH, (Reported) Entered as Reported by: RONEY ARTEAGA on 04/03/20 0951 Apixaban (Eliquis) 5 Mg Tablet, 5 MG PO BID Prescribed by: IRINA MOLINA on 01/24/21 2357 Carisoprodol (Carisoprodol) 350 Mg Tablet, 350 MG PO TID, (Reported) Entered as Reported by: RONEY ARTEAGA on 04/03/20 0951 Cefdinir (Cefdinir) 300 Mg Capsule, 300 MG PO BID Prescribed by: KENDRA TRUJILLO on 09/08/20 1528 Cefdinir (Cefdinir) 300 Mg Capsule, 300 MG PO BID Prescribed by: IRINA MOLINA on 08/27/21 1553 Cefdinir (Cefdinir) 300 Mg Capsule, 300 MG PO BID Prescribed by: DONATO VELOZ on 10/17/21 1644 Last Action: New Order Ceftriaxone Sodium (Ceftriaxone) 1 Gm Vial, 1 GM IJ DAILY Prescribed by: NATALIO PRECIADO on 04/04/20 1242 Cephalexin (Cephalexin) 500 Mg Tablet, 500 MG PO BID Prescribed by: IRINA MOLINA on 01/24/21 2357 Estradiol (Estradiol Patch Twice weekly 0.05mg/hr) 1 Each Patch.tdwk, 1 EACH TD MON,FRI, (Reported) Entered as Reported by: RONEY ARTEAGA on 04/03/20 1029 Fexofenadine HCl (Azul Allergy) 180 Mg Tablet, 180 MG PO DAILY, (Reported) Entered as Reported by: RONEY ARTEAGA on 04/03/20 1033 Hydrocodone/Acetaminophen (Hydrocodone-Acetamin 5-325 mg) 1 Each Tablet, 1 TAB PO Q6H PRN for PAIN-MODERATE (5-7) Prescribed by: IRINA MOLINA on 08/27/21 1554 Hydroxychloroquine Sulfate (Plaquenil) 200 Mg Tablet, 200 MG PO HS, (Reported) Entered as Reported by: JU RAE on 10/13/16 1632 Ketorolac Tromethamine (Ketorolac Tromethamine) 10 Mg Tablet, 10 MG PO Q8H Prescribed by: SNEHAL DYE on 08/17/21 1610 Levothyroxine Sodium (Levothyroxine Sodium) 88 Mcg Tablet, 88 MCG PO DAILY, (Reported) Entered as Reported by: JU RAE on 10/13/16 1632 Ondansetron (Ondansetron Odt) 4 Mg Tab.rapdis, 4 MG PO Q4H Prescribed by: KENDRA TRUJILLO on 09/08/20 1539 Paroxetine HCl (Paroxetine HCl) 40 Mg Tablet, 40 MG PO DAILY, (Reported) Entered as Reported by: RONEY ARTEAGA on 04/03/20 0951 Phenazopyridine HCl (Pyridium) 200 Mg Tablet, 1 TAB PO TID Prescribed by: KENDRA TRUJILLO on 09/08/20 1528 Phenazopyridine HCl (Pyridium) 200 Mg Tablet, 1 TAB PO TID Prescribed by: DONATO VELOZ on 02/13/21 1426 Phenazopyridine HCl (Pyridium) 100 Mg Tablet, 100 MG PO TID Prescribed by: SNEHAL DYE on 08/17/21 1610 Prednisone (Prednisone) 10 Mg Tab, 10 MG PO HS, (Reported) Entered as Reported by: RONEY ARTEAGA on 04/03/20 0951 Sumatriptan Succinate (Sumatriptan Succinate) 100 Mg Tablet, 100 MG PO BID PRN for MIGRAINE, (Reported) Entered as Reported by: RONEY ARTEAGA on 04/03/20 0953 Discontinued Medications Levofloxacin (Levofloxacin) 500 Mg Tablet, 500 MG PO DAILY Prescribed by: DONATO VELOZ on 10/17/21 1517 Sulfamethoxazole/Trimethoprim (Bactrim Ds Tablet) 1 Each Tablet, 1 EACH PO BID Prescribed by: DONATO VELOZ on 10/17/21 1522 Last Action: Discontinued Review of Systems Review of Systems Constitutional: see HPI EENTM: see HPI Respiratory: no symptoms reported Cardiovascular: no symptoms reported Genitourinary: see HPI Musculoskeletal: no symptoms reported Skin: no symptoms reported Psychiatric/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: No Symptoms Reported Endocrine: No Symptoms Reported Past Mdqcqhz-Vcdmbo-Ntyrft Hx Immunizations Up To Date Tetanus Booster (TDap): Unknown Seasonal Allergies Seasonal Allergies: No Past Medical History Surgery/Hospitalization HX: 6 BLADDER/ URETHRAL SURGERIES Surgeries: Yes Bladder Surgery, Hysterectomy Respiratory: Yes COPD Cardiac: No 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 Multiple Sclerosis [employer] History: Menopausal Genitourinary: Yes (bladder issues related to mesh, chronic abdominal pelvic pain) UTI-Chronic Gastrointestinal: No Musculoskeletal: Yes Chronic Back Pain Endocrine: Yes Hypothyroidsim, Diabetes, Non-Insulin dep, Lupus HEENT: No Cancer: No Psychosocial: No Integumentary: No Blood Disorders: No Family Medical History Cardiovascular disease 19 FATHER Congenital disease G8 SISTER (a muscle disease that is hereditary) Diabetes mellitus 19 FATHER Thyroid disease 19 MOTHER Physical Exam Vital Signs Vital Signs - First Documented 10/17/21 14:22 Temp 36.9 Pulse 105 Resp 16 B/P (MAP) 103/70 (81) Pulse Ox 97 Capillary Refill : Height, Weight, BMI Height: 5'10.00" Weight: 125lbs. oz. 56.628927it; 21.00 BMI Method:Stated General Appearance: WD/WN, no apparent distress HEENT: PERRL/EOMI, normal ENT inspection Respiratory: no respiratory distress, no accessory muscle use Gastrointestinal: normal bowel sounds, soft, tenderness (Suprapubic) Neurologic/Psychiatric: alert, normal mood/affect, oriented x 3 Skin: normal color, warm/dry Progress/Results/Core Measures Suspected Sepsis SIRS Temperature: Pulse: Respiratory Rate: Laboratory Tests 10/17/21 14:44: White Blood Count 10.9 Blood Pressure / Mean: Laboratory Tests 10/17/21 14:44: Creatinine 0.79, Platelet Count 282, Total Bilirubin 0.4 Results/Orders Lab Results Laboratory Tests Test 10/17/21 14:18 10/17/21 14:44 Range/Units Urine Color YELLOW Urine Clarity SL CLOUDY Urine pH 6.5 5-9 Urine Specific [place] <=1.005 1.016-1.022 Urine Protein NEGATIVE NEGATIVE Urine Glucose (UA) NEGATIVE NEGATIVE Urine Ketones NEGATIVE NEGATIVE Urine Nitrite POSITIVE H NEGATIVE Urine Bilirubin NEGATIVE NEGATIVE Urine Urobilinogen 0.2 < = 1.0 MG/DL Urine Leukocyte Esterase 3+ H NEGATIVE Urine RBC (Auto) TRACE-I H NEGATIVE Urine RBC 0-2 /HPF Urine WBC 25-50 H /HPF Urine Crystals NONE /LPF Urine Bacteria LARGE H /HPF Urine Casts NONE /LPF Urine Mucus NEGATIVE /LPF Urine Culture Indicated YES White Blood Count 10.9 4.3-11.0 10^3/uL Red Blood Count 4.56 3.80-5.11 10^6/uL Hemoglobin 15.3 11.5-16.0 g/dL Hematocrit 46 35-52 % Mean Corpuscular Volume 100 H 80-99 fL Mean Corpuscular Hemoglobin 34 25-34 pg Mean Corpuscular Hemoglobin Concent 34 32-36 g/dL Red Cell Distribution Width 12.5 10.0-14.5 % Platelet Count 282 130-400 10^3/uL Mean Platelet Volume 9.3 9.0-12.2 fL Immature Granulocyte % (Auto) 1 % Neutrophils (%) (Auto) 52 42-75 % Lymphocytes (%) (Auto) 38 12-44 % Monocytes (%) (Auto) 8 0-12 % Eosinophils (%) (Auto) 1 0-10 % Basophils (%) (Auto) 1 0-10 % Neutrophils # (Auto) 5.7 1.8-7.8 10^3/uL Lymphocytes # (Auto) 4.1 H 1.0-4.0 10^3/uL Monocytes # (Auto) 0.9 0.0-1.0 10^3/uL Eosinophils # (Auto) 0.1 0.0-0.3 10^3/uL Basophils # (Auto) 0.1 0.0-0.1 10^3/uL Immature Granulocyte # (Auto) 0.1 0.0-0.1 10^3/uL Sodium Level 139 135-145 MMOL/L Potassium Level 3.7 3.6-5.0 MMOL/L Chloride Level 108 H 98-107 MMOL/L Carbon Dioxide Level 24 21-32 MMOL/L Anion Gap 7 5-14 MMOL/L Blood Urea Nitrogen 5 L 7-18 MG/DL Creatinine 0.79 0.60-1.30 MG/DL Estimat Glomerular Filtration Rate 74 BUN/Creatinine Ratio 6 Glucose Level 84 70-105 MG/DL Calcium Level 8.5 8.5-10.1 MG/DL Corrected Calcium 8.7 8.5-10.1 MG/DL Total Bilirubin 0.4 0.1-1.0 MG/DL Aspartate Amino Transf (AST/SGOT) 20 5-34 U/L Alanine Aminotransferase (ALT/SGPT) 19 0-55 U/L Alkaline Phosphatase 39 L 40-136 U/L Total Protein 6.5 6.4-8.2 GM/DL Albumin 3.7 3.2-4.5 GM/DL My Orders Orders - DONATO VELOZ APRN Ua Culture If Indicated (10/17/21 14:08) Ketorolac Injection (Toradol Injection) (10/17/21 14:15) Phenazopyridine Tablet (Pyridium Tablet) (10/17/21 14:15) Hyoscyamine Sl Tablet (Levsin Sl Tablet) (10/17/21 14:15) Ed Iv/Invasive Line Start (10/17/21 14:15) Cbc With Automated Diff (10/17/21 14:15) Comprehensive Metabolic Panel (10/17/21 14:15) Ed Iv/Invasive Line Start (10/17/21 14:15) Ns Iv 1000 Ml (Sodium Chloride 0.9%) (10/17/21 14:15) Ceftriaxone 1 Gm Pre-Mix (Rocephin 1 Gm (10/17/21 14:30) Urine Culture (10/17/21 14:18) Ketorolac Injection (Toradol Injection) (10/17/21 15:30) Medications Given in ED Current Medications Medications Dose Ordered Sig/Jens Route Start Time Stop Time Status Last Admin Dose Admin Ceftriaxone Sodium/Dextrose 50 ml @ 100 mls/hr ONCE ONCE IV 10/17/21 14:30 10/17/21 14:59 DC 10/17/21 14:39 100 MLS/HR Hyoscyamine Sulfate 0.125 mg ONCE ONCE PO 10/17/21 14:15 10/17/21 14:16 DC 10/17/21 14:36 0.125 MG Ketorolac Tromethamine 30 mg ONCE ONCE IVP 10/17/21 15:30 10/17/21 15:31 DC 10/17/21 14:30 30 MG Phenazopyridine HCl 100 mg ONCE ONCE PO 10/17/21 14:15 10/17/21 14:16 DC 10/17/21 14:36 100 MG Vital Signs/I&O 10/17/21 10/17/21 14:22 15:46 Temp 36.9 36.9 Pulse 105 105 Resp 16 16 B/P (MAP) 103/70 (81) 100/70 Pulse Ox 97 97 Capillary Refill : Departure Communication (Admissions) No evidence of sepsis. She does have indication of urinary tract infection. Her most recent urine culture from July of this year showed Enterobacter cloacae complex that was sensitive to gentamicin and ceftriaxone Bactrim Levaquin and Cipro and meropenem. States she cannot have Levaquin or Cipro because of a flare of her lupus. I will put her on Bactrim 1645 patient is now back to report her allergy to sulfa. I discussed with her that she told me she had just taken Bactrim and she confirms that she did but she now reports that she had some side effects and does not want to use it. So I will send in Omnicef. She still wants a PICC line. I discussed with her this would need to wait until we have urine culture and sensitivity to determine if that was absolutely necessary because in itself is an infection risk. Impression Primary Impression: UTI (urinary tract infection) Disposition: HOME, SELF-CARE Condition: Stable Departure-Patient Inst. Decision time for Depature: 14:12 Referrals: ELY DOBBINS MD (PCP/Family) Primary Care Physician Patient Instructions: Urinary Tract Infection, Adult (DC) Add. Discharge Instructions: All discharge instructions reviewed with patient and/or family. Voiced understanding. Scripts Cefdinir (Cefdinir) 300 Mg Capsule 300 MG PO BID, #14 CAP Prov: DONATO VELOZ BEADER 10/17/21 DONATO VELOZ BEADER Oct 17, 2021 14:12
[2021-10-17] MEDS ORDERED: PHENAZOPYRIDINE 100 MG (PYRIDIUM) TABLET PO ONE (14:15)
[2021-10-17] MEDS ORDERED: KETOROLAC 30 MG/ML VIAL IM ONE (14:15)
[2021-10-17] MEDS ORDERED: CEFDINIR 300 MG (OMNICEF) CAP PO ONE (14:15)
[2021-10-17] MEDS ORDERED: NS IV 1000 ML 1,000 ML IV SCH (14:15)
[2021-10-17] MEDS ORDERED: HYOSCYAMINE 0.125 MG (LEVSIN) TAB PO ONE (14:15)
[2021-10-17 14:28] LABS: BILIRUBIN,URINE NEGATIVE (NEGATIVE); CLARITY,URINE SL CLOUDY; COLOR,URINE YELLOW; GLUCOSE, URINE (UA) NEGATIVE (NEGATIVE); KETONES,URINE NEGATIVE (NEGATIVE); LEUKOCYTE ESTERASE ,URINE 3+ (NEGATIVE); NITRITE,URINE POSITIVE (NEGATIVE); PH,URINE 6.5 (5-9); PROTEIN,URINE NEGATIVE (NEGATIVE)
[2021-10-17] MEDS ORDERED: cefTRIAXone 1 GM PRE-MIX 50 ML IV ONE (14:30)
[2021-10-17 14:34] LABS: BACTERIA,URINE LARGE /HPF; RBC,URINE 0-2 /HPF; WBC,URINE 25-50 /HPF
[2021-10-17 14:49] LABS: BASOPHILS # (AUTO) 0.1 10^3/uL (0.0-0.1); BASOPHILS % (AUTO) 1 % (0-10); EOSINOPHILS # (AUTO) 0.1 10^3/uL (0.0-0.3); EOSINOPHILS % (AUTO) 1 % (0-10); HEMATOCRIT 46 % (35-52); HEMOGLOBIN 15.3 g/dL (11.5-16.0); LYMPHOCYTES # (AUTO) 4.1 10^3/uL (1.0-4.0); LYMPHOCYTES % (AUTO) 38 % (12-44); MEAN CORPUSCULAR HEMOGLOBIN 34 pg (25-34); MEAN CORPUSCULAR HGB CONC 34 g/dL (32-36); MEAN CORPUSCULAR VOLUME 100 fL (80-99); MEAN PLATELET VOLUME 9.3 fL (9.0-12.2); MONOCYTES # (AUTO) 0.9 10^3/uL (0.0-1.0); MONOCYTES % (AUTO) 8 % (0-12); NEUTROPHILS # (AUTO) 5.7 10^3/uL (1.8-7.8); NEUTROPHILS % (AUTO) 52 % (42-75); PLATELET COUNT 282 10^3/uL (130-400); WHITE BLOOD COUNT 10.9 10^3/uL (4.3-11.0)
[2021-10-17 14:58] LABS: ALBUMIN 3.7 GM/DL (3.2-4.5)
[2021-10-17 14:59] LABS: POTASSIUM 3.7 MMOL/L (3.6-5.0)
[2021-10-17 15:00] LABS: CALCIUM 8.5 MG/DL (8.5-10.1)
[2021-10-17 15:01] LABS: TOTAL PROTEIN 6.5 GM/DL (6.4-8.2)
[2021-10-17 15:03] LABS: BILIRUBIN,TOTAL 0.4 MG/DL (0.1-1.0)
[2021-10-17 15:05] LABS: CREATININE SERUM 0.79 MG/DL (0.60-1.30)
[2021-10-17] MEDS ORDERED: LEVO500T81 PO (15:17)
[2021-10-17] MEDS ORDERED: SULF1TAB38 PO (15:22)
[2021-10-17] MEDS ORDERED: KETOROLAC 30 MG/ML VIAL IVP ONE (15:30)
[2021-10-17 15:46] VITALS: BP 100/70
[2021-10-17] MEDS ORDERED: CEFD300C3 PO (16:44)
== END 2021-10-17 15:46 | disposition home or self-care (01) ==
LOC: EDUNIT# 13:58 → ER 14:02
DX: N39.0 Urinary tract infection, site not specified (principal); J44.9 Chronic obstructive pulmonary disease, unspecified; E11.9 Type 2 diabetes mellitus without complications; G89.29 Other chronic pain; M54.9 Dorsalgia, unspecified; E03.9 Hypothyroidism, unspecified; Z79.891 Long term (current) use of opiate analgesic; Z79.01 Long term (current) use of anticoagulants; Z79.890 Hormone replacement therapy; Z79.899 Other long term (current) drug therapy
CPT/HCPCS: 36415; 80053; 81000; 85025; 87077; 87088; 87186

== ENCOUNTER 2022-01-16 17:42 | Emergency (ER) | payer MEDICARE, MEDICAID ==
[~2022-01-16] VITALS: Ht 175.3 cm; Wt 68.0 kg
[~2022-01-16 17:42] MED LIST changes: +LEVO500T81 PO; +SULF1TAB38 PO
[2022-01-16] MEDS ORDERED: fentaNYL INJ 100 MCG/2 ML AMP IVP STA (18:03)
[2022-01-16] MEDS ORDERED: LACTATED RINGERS 1,000 ML IV ONE (18:15)
[2022-01-16 18:31] LABS: BASOPHILS # (AUTO) 0.1 10^3/uL (0.0-0.1); BASOPHILS % (AUTO) 1 % (0-10); EOSINOPHILS # (AUTO) 0.1 10^3/uL (0.0-0.3); EOSINOPHILS % (AUTO) 1 % (0-10); HEMATOCRIT 46 % (35-52); LYMPHOCYTES # (AUTO) 3.3 10^3/uL (1.0-4.0); LYMPHOCYTES % (AUTO) 29 % (12-44); MEAN CORPUSCULAR HEMOGLOBIN 33 pg (25-34); MEAN CORPUSCULAR HGB CONC 33 g/dL (32-36); MEAN CORPUSCULAR VOLUME 101 fL (80-99); MEAN PLATELET VOLUME 9.4 fL (9.0-12.2); MONOCYTES # (AUTO) 0.8 10^3/uL (0.0-1.0); MONOCYTES % (AUTO) 7 % (0-12); NEUTROPHILS # (AUTO) 7.2 10^3/uL (1.8-7.8); NEUTROPHILS % (AUTO) 62 % (42-75); PLATELET COUNT 346 10^3/uL (130-400); WHITE BLOOD COUNT 11.5 10^3/uL (4.3-11.0)
[2022-01-16 18:36] LABS: ALBUMIN 3.5 GM/DL (3.2-4.5)
[2022-01-16 18:37] LABS: INR 0.9 (0.8-1.4); POTASSIUM 3.7 MMOL/L (3.6-5.0)
[2022-01-16 18:38] LABS: CALCIUM 8.8 MG/DL (8.5-10.1)
[2022-01-16 18:39] LABS: TOTAL PROTEIN 6.1 GM/DL (6.4-8.2)
[2022-01-16 18:41] LABS: BILIRUBIN,TOTAL 0.4 MG/DL (0.1-1.0)
[2022-01-16 18:43] LABS: CREATININE SERUM 0.77 MG/DL (0.60-1.30)
--- NOTE | 2022-01-16 18:48 | Diagnostic Imaging Report ---
EXAMINATION: CT thoracic and lumbar spine without contrast. TECHNIQUE: Multiple contiguous axial images were obtained through the thoracic and lumbar spine without the use of intravenous contrast. Sagittal and coronal reformations were then performed. All CT scans use one or more of the following dose optimizing techniques: automated exposure control, MA and/or KvP adjustment based on patient size and exam type or iterative reconstruction. HISTORY: Flank pain. COMPARISON: None available. FINDINGS: The alignment of the thoracic and lumbar spine is normal. Vertebral body heights are normal and no fracture is seen. Facet joints are normal. Disc heights are normal. There is no spinal canal stenosis. There is a non-obstructing stone in the lower pole of the left kidney. The aorta is normal. IMPRESSION: 1. No thoracic or lumbar spine fracture. 2. Nonobstructing stone in the lower pole of the left kidney measuring 2 mm. Dictated by: Dictated on workstation # [id number]
--- NOTE | 2022-01-16 19:02 | Diagnostic Imaging Report ---
EXAMINATION: Left ankle 3 views. HISTORY: Ankle pain. COMPARISON: 09/01/2017. FINDINGS: Alignment is normal. No fracture is seen. Joint spaces are normal. IMPRESSION: No fracture. Dictated by: Dictated on workstation # [id number]
--- NOTE | 2022-01-16 19:02 | Diagnostic Imaging Report ---
EXAMINATION: Left foot 3 views. HISTORY: Foot pain. COMPARISON: None available. FINDINGS: There is mild mid foot osteoarthritis. Alignment is normal. No fracture is seen. IMPRESSION: Mild mid foot osteoarthritis, no fracture. Dictated by: Dictated on workstation # [id number]
--- NOTE | 2022-01-16 19:03 | Diagnostic Imaging Report ---
EXAMINATION: Right hip unilateral 2 or 3 views (w/pelvis when done). HISTORY: Hip pain. COMPARISON: 05/01/2019. FINDINGS: Alignment is normal. No fracture is seen. There is mild bilateral hip osteoarthritis. IMPRESSION: Mild bilateral hip joint osteoarthritis. No fracture. Dictated by: Dictated on workstation # [id number]
[2022-01-16] MEDS ORDERED: KETOROLAC 30 MG/ML VIAL IVP ONE (19:15)
[2022-01-16] MEDS ORDERED: ORPHENADRINE 60 MG/2 ML (NORFLEX) AMP (ED ONLY) IV ONE (19:15)
[2022-01-16 19:20] LABS: BILIRUBIN,URINE NEGATIVE (NEGATIVE); CLARITY,URINE CLEAR; COLOR,URINE YELLOW; GLUCOSE, URINE (UA) NEGATIVE (NEGATIVE); KETONES,URINE NEGATIVE (NEGATIVE); LEUKOCYTE ESTERASE ,URINE TRACE (NEGATIVE); NITRITE,URINE NEGATIVE (NEGATIVE); PROTEIN,URINE NEGATIVE (NEGATIVE)
[2022-01-16 19:31] LABS: BACTERIA,URINE TRACE /HPF; WBC,URINE 0-2 /HPF
[2022-01-16 19:36] LABS: AMPHETAMINE SCREEN, URINE NEGATIVE (NEGATIVE); BARBITURATE SCREEN URINE NEGATIVE (NEGATIVE); BENZODIAZEPINES SCREEN URINE NEGATIVE (NEGATIVE); CANNABINOID SCREEN, URINE NEGATIVE (NEGATIVE); COCAINE SCREEN URINE NEGATIVE (NEGATIVE); METHADONE STAT NEGATIVE (NEGATIVE); METHAMPHETAMINE SCREEN URINE S NEGATIVE (NEGATIVE); OPIATE SCREEN URINE POSITIVE (NEGATIVE); OXYCODONE STAT NEGATIVE (NEGATIVE); PROPOXYPHENE STAT NEGATIVE (NEGATIVE); TRICYCLIC ANTIDEPRESSANTS SCRE NEGATIVE (NEGATIVE)
--- NOTE | 2022-01-16 19:49 | ED Fall/Injury ---
General Chief Complaint: General Problems/Pain Stated Complaint: FELL, BACK PAIN Nursing Triage Note: PT TO RM 4 VIA WC W C/O RIGHT LOWER BACK PAIN AND LEFT ANKLE PAIN SX FALL ON 01/07/22. PT ALSO REPORTS SEEING BLOOD AFTER GOING TO THE BATHROOM AND WIPING 3 DAYS AGO. PT A&OX4. Allergies and Home Medications Allergies Coded Allergies: Sulfa (Sulfonamide Antibiotics) (Verified Allergy, Unknown, 09/13/15) Patient Home Medication List Albuterol Sulfate (Ventolin Hfa) 18 Gm Hfa.aer.ad, 2 PUFF PO Q6H PRN for SHORTNESS OF BREATH, (Reported) Entered as Reported by: RONEY ARTEAGA on 04/03/20 0951 Apixaban (Eliquis) 5 Mg Tablet, 5 MG PO BID Prescribed by: IRINA MOLINA on 01/24/21 2357 Carisoprodol (Carisoprodol) 350 Mg Tablet, 350 MG PO TID, (Reported) Entered as Reported by: RONEY ARTEAGA on 04/03/20 0951 Cefdinir (Cefdinir) 300 Mg Capsule, 300 MG PO BID Prescribed by: KENDRA TRUJILLO on 09/08/20 1528 Cefdinir (Cefdinir) 300 Mg Capsule, 300 MG PO BID Prescribed by: IRINA MOLINA on 08/27/21 1553 Cefdinir (Cefdinir) 300 Mg Capsule, 300 MG PO BID Prescribed by: DONATO VELOZ on 10/17/21 1644 Ceftriaxone Sodium (Ceftriaxone) 1 Gm Vial, 1 GM IJ DAILY Prescribed by: NATALIO PRECIADO on 04/04/20 1242 Cephalexin (Cephalexin) 500 Mg Tablet, 500 MG PO BID Prescribed by: IRINA MOLINA on 01/24/21 2357 Estradiol (Estradiol Patch Twice weekly 0.05mg/hr) 1 Each Patch.tdwk, 1 EACH TD MON,FRI, (Reported) Entered as Reported by: RONEY ARTEAGA on 04/03/20 1029 Fexofenadine HCl (Azul Allergy) 180 Mg Tablet, 180 MG PO DAILY, (Reported) Entered as Reported by: RONEY ARTEAGA on 04/03/20 1033 Hydrocodone/Acetaminophen (Hydrocodone-Acetamin 5-325 mg) 1 Each Tablet, 1 TAB PO Q6H PRN for PAIN-MODERATE (5-7) Prescribed by: IRINA MOLINA on 08/27/21 1554 Hydroxychloroquine Sulfate (Plaquenil) 200 Mg Tablet, 200 MG PO HS, (Reported) Entered as Reported by: JU RAE on 10/13/16 1632 Ketorolac Tromethamine (Ketorolac Tromethamine) 10 Mg Tablet, 10 MG PO Q8H Prescribed by: SNEHAL DYE on 08/17/21 1610 Levothyroxine Sodium (Levothyroxine Sodium) 88 Mcg Tablet, 88 MCG PO DAILY, (Reported) Entered as Reported by: JU RAE on 10/13/16 1632 Ondansetron (Ondansetron Odt) 4 Mg Tab.rapdis, 4 MG PO Q4H Prescribed by: KENDRA TRUJILLO on 09/08/20 1539 Paroxetine HCl (Paroxetine HCl) 40 Mg Tablet, 40 MG PO DAILY, (Reported) Entered as Reported by: RONEY ARTEAGA on 04/03/20 0951 Phenazopyridine HCl (Pyridium) 200 Mg Tablet, 1 TAB PO TID Prescribed by: KENDRA TRUJILLO on 09/08/20 1528 Phenazopyridine HCl (Pyridium) 200 Mg Tablet, 1 TAB PO TID Prescribed by: DONATO VELOZ on 02/13/21 1426 Phenazopyridine HCl (Pyridium) 100 Mg Tablet, 100 MG PO TID Prescribed by: SNEHAL DYE on 08/17/21 1610 Prednisone (Prednisone) 10 Mg Tab, 10 MG PO HS, (Reported) Entered as Reported by: RONEY ARTEAGA on 04/03/20 0951 Sumatriptan Succinate (Sumatriptan Succinate) 100 Mg Tablet, 100 MG PO BID PRN for MIGRAINE, (Reported) Entered as Reported by: RONEY ARTEAGA on 04/03/20 0953 Past Dpvbqbx-Rziveh-Bonfkq Hx Patient Social History Tobacco Use?: Yes Tobacco type used: Cigarettes Smoking Status: Current Everyday Smoker Use of E-Cig and/or Vaping dev: No Substance use?: No Alcohol Use?: No Immunizations Up To Date Tetanus Booster (TDap): Unknown Influenza Vaccine Up-to-Date: No; Not Current First/Initial COVID19 Vaccinat: NONE Second COVID19 Vaccination Morales: NONE Third COVID19 Vaccination Date: NONE 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 Seasonal Allergies Seasonal Allergies: No Past Medical History Surgery/Hospitalization HX: 6 BLADDER/ URETHRAL SURGERIES PMH: MS, LUPUS, HYPOTHYROIDISM Surgeries: Yes Bladder Surgery, Hysterectomy Respiratory: Yes COPD Cardiac: No 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 Multiple 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 Genitourinary: Yes (bladder issues related to mesh, chronic abdominal pelvic pain) UTI-Chronic Gastrointestinal: No Musculoskeletal: Yes Chronic Back Pain Endocrine: Yes Hypothyroidsim, Diabetes, Non-Insulin dep, Lupus HEENT: No Cancer: No Psychosocial: No Integumentary: No Blood Disorders: No Family Medical History Cardiovascular disease 19 FATHER Congenital disease G8 SISTER (a muscle disease that is hereditary) Diabetes mellitus 19 FATHER Thyroid disease 19 MOTHER Physical Exam Vital Signs Vital Signs - First Documented 01/16/22 17:50 Temp 36.4 Pulse 82 Resp 18 B/P (MAP) 93/82 (86) Pulse Ox 98 O2 Delivery Room Air Capillary Refill : Less Than 3 Seconds Height, Weight, BMI Height: 5'10.00" Weight: 125lbs. oz. 56.520970si; 22.00 BMI Method:Stated Progress/Results/Core Measures Results/Orders Lab Results Laboratory Tests Test 01/16/22 18:05 01/16/22 19:10 Range/Units White Blood Count 11.5 H 4.3-11.0 10^3/uL Red Blood Count 4.55 3.80-5.11 10^6/uL Hemoglobin 15.0 11.5-16.0 g/dL Hematocrit 46 35-52 % Mean Corpuscular Volume 101 H 80-99 fL Mean Corpuscular Hemoglobin 33 25-34 pg Mean Corpuscular Hemoglobin Concent 33 32-36 g/dL Red Cell Distribution Width 13.0 10.0-14.5 % Platelet Count 346 130-400 10^3/uL Mean Platelet Volume 9.4 9.0-12.2 fL Immature Granulocyte % (Auto) 1 % Neutrophils (%) (Auto) 62 42-75 % Lymphocytes (%) (Auto) 29 12-44 % Monocytes (%) (Auto) 7 0-12 % Eosinophils (%) (Auto) 1 0-10 % Basophils (%) (Auto) 1 0-10 % Neutrophils # (Auto) 7.2 1.8-7.8 10^3/uL Lymphocytes # (Auto) 3.3 1.0-4.0 10^3/uL Monocytes # (Auto) 0.8 0.0-1.0 10^3/uL Eosinophils # (Auto) 0.1 0.0-0.3 10^3/uL Basophils # (Auto) 0.1 0.0-0.1 10^3/uL Immature Granulocyte # (Auto) 0.1 0.0-0.1 10^3/uL Prothrombin Time 12.0 L 12.2-14.7 SEC INR Comment 0.9 0.8-1.4 Activated Partial Thromboplast Time 26 24-35 SEC Sodium Level 139 135-145 MMOL/L Potassium Level 3.7 3.6-5.0 MMOL/L Chloride Level 106 98-107 MMOL/L Carbon Dioxide Level 22 21-32 MMOL/L Anion Gap 11 5-14 MMOL/L Blood Urea Nitrogen 4 L 7-18 MG/DL Creatinine 0.77 0.60-1.30 MG/DL Estimat Glomerular Filtration Rate 88 BUN/Creatinine Ratio 5 Glucose Level 70 70-105 MG/DL Calcium Level 8.8 8.5-10.1 MG/DL Corrected Calcium 9.2 8.5-10.1 MG/DL Total Bilirubin 0.4 0.1-1.0 MG/DL Aspartate Amino Transf (AST/SGOT) 20 5-34 U/L Alanine Aminotransferase (ALT/SGPT) 13 0-55 U/L Alkaline Phosphatase 40 40-136 U/L Total Protein 6.1 L 6.4-8.2 GM/DL Albumin 3.5 3.2-4.5 GM/DL Urine Color YELLOW Urine Clarity CLEAR Urine pH 7.0 5-9 Urine Specific [place] <=1.005 1.016-1.022 Urine Protein NEGATIVE NEGATIVE Urine Glucose (UA) NEGATIVE NEGATIVE Urine Ketones NEGATIVE NEGATIVE Urine Nitrite NEGATIVE NEGATIVE Urine Bilirubin NEGATIVE NEGATIVE Urine Urobilinogen 0.2 < = 1.0 MG/DL Urine Leukocyte Esterase TRACE H NEGATIVE Urine RBC (Auto) NEGATIVE NEGATIVE Urine RBC NONE /HPF Urine WBC 0-2 /HPF Urine Crystals NONE /LPF Urine Bacteria TRACE /HPF Urine Casts NONE /LPF Urine Mucus NEGATIVE /LPF Urine Culture Indicated NO Urine Opiates Screen POSITIVE H NEGATIVE Urine Oxycodone Screen NEGATIVE NEGATIVE Urine Methadone Screen NEGATIVE NEGATIVE Urine Propoxyphene Screen NEGATIVE NEGATIVE Urine Barbiturates Screen NEGATIVE NEGATIVE Ur Tricyclic Antidepressants Screen NEGATIVE NEGATIVE Urine Phencyclidine Screen NEGATIVE NEGATIVE Urine Amphetamines Screen NEGATIVE NEGATIVE Urine Methamphetamines Screen NEGATIVE NEGATIVE Urine Benzodiazepines Screen NEGATIVE NEGATIVE Urine Cocaine Screen NEGATIVE NEGATIVE Urine Cannabinoids Screen NEGATIVE NEGATIVE My Orders Orders - KENDRA TRUJILLO DO Ed Iv/Invasive Line Start (01/16/22 18:03) Monitor-Rhythm Ecg Trace Only (01/16/22 18:03) Ct Abd/Pelvis Wo(Kidney Stone) (01/16/22 18:03) Ct Thoracic/Lumbar Spine Wo (01/16/22 18:03) Foot, Left, 3 Views (01/16/22 18:03) Ankle, Left, 3 Views (01/16/22 18:03) Pelvis With Right Hip 2-3views (01/16/22 18:03) Cbc With Automated Diff (01/16/22 18:03) Comprehensive Metabolic Panel (01/16/22 18:03) Protime With Inr (01/16/22 18:03) Partial Thromboplastin Time (01/16/22 18:03) Ua Culture If Indicated (01/16/22 18:03) Ed Iv/Invasive Line Start (01/16/22 18:03) Lactated Ringers (Lr 1000 Ml Iv Solution (01/16/22 18:15) Fentanyl Inj (Sublimaze Injection) (01/16/22 18:03) Ketorolac Injection (Toradol Injection) (01/16/22 19:15) Orphenadrine Inj (Ed Only) (Norflex Inje (01/16/22 19:15) Drug Screen Stat (Urine) (01/16/22 19:09) Medications Given in ED Current Medications Medications Dose Ordered Sig/Jens Route Start Time Stop Time Status Last Admin Dose Admin Ketorolac Tromethamine 30 mg ONCE ONCE IVP 01/16/22 19:15 01/16/22 19:16 DC 01/16/22 19:21 30 MG Lactated Ringer's 1,000 ml @ 0 mls/hr Q0M ONCE IV 01/16/22 18:15 01/16/22 18:16 DC 01/16/22 18:52 0 MLS/HR Orphenadrine Citrate 60 mg ONCE ONCE IV 01/16/22 19:15 01/16/22 19:16 DC 01/16/22 19:21 60 MG Vital Signs/I&O 01/16/22 17:50 Temp 36.4 Pulse 82 Resp 18 B/P (MAP) 93/82 (86) Pulse Ox 98 O2 Delivery Room Air Blood Pressure Mean: 86 Diagnostic Imaging Comments XRAYS--PER RADIOLOGIST REPORTS AT 194 CT THORACIC/LUMBAR SPINE--PER RADIOLOGIST REPORT AT 194 FINDINGS: The alignment of the thoracic and lumbar spine is normal. Vertebral body heights are normal and no fracture is seen. Facet joints are normal. Disc heights are normal. There is no spinal canal stenosis. There is a non-obstructing stone in the lower pole of the left kidney. The aorta is normal. IMPRESSION: 1. No thoracic or lumbar spine fracture. 2. Nonobstructing stone in the lower pole of the left kidney measuring 2 mm. Departure Impression Primary Impression: Fall from standing Additional Impressions: Lumbar spine strain Pain of right sacroiliac joint Left ankle sprain Sciatica of right side Disposition: HOME, SELF-CARE Condition: Stable Departure-Patient Inst. Decision time for Depature: 20:15 Referrals: ELY DOBBINS MD (PCP/Family) Primary Care Physician Patient Instructions: Ankle Sprain (DC), Sacroiliac Joint Pain ED, Preventing Falls ED, Low Back Pain ED Add. Discharge Instructions: ALTERNATE ICE AND HEAT TO SORE AREAS AT 20 MINUTE INTERVAL CONTINUE YOUR REGULAR MEDICATIONS PRESCRIBED FOLLOW UP WITH YOUR DR NEXT WEEK FOR FURTHER CARE All discharge instructions reviewed with patient and/or family. Voiced understanding. Scripts Ketorolac Tromethamine (Ketorolac Tromethamine) 10 Mg Tablet 10 MG PO Q6H for Pain, #15 TAB Prov: KENDRA TRUJILLO DO 01/16/22 KENDRA TRUJILLO DO Jan 16, 2022 19:49
--- NOTE | 2022-01-16 20:12 | Diagnostic Imaging Report ---
EXAMINATION: CT abdomen and pelvis without contrast. TECHNIQUE: Multiple contiguous axial images were obtained through the abdomen and pelvis without the use of intravenous contrast. All CT scans use one or more of the following dose optimizing techniques: automated exposure control, MA and/or KvP adjustment based on patient size and exam type or iterative reconstruction. HISTORY: Flank pain COMPARISON: None available. FINDINGS: Limited views of the lower thorax are unremarkable. The liver is normal without focal lesion. There is no biliary ductal dilation. Gallbladder is normal. Pancreas is normal. Spleen is normal. Adrenal glands are normal. There is a nonobstructing 2 mm left lower pole renal stone. There is a simple cyst in left kidney. There is no hydronephrosis. Urinary bladder is normal. Bowel is normal in caliber without obstruction or inflammation. No free fluid or air. No abdominal or pelvic lymphadenopathy. Aorta is normal in caliber without aneurysm. There are no suspicious osseus lesions. IMPRESSION: 1. Nonobstructing 2 mm left lower pole renal stone. No ureteral stones. Dictated by: Dictated on workstation # [id number]
[2022-01-16] MEDS ORDERED: KETO10TA PO (20:18)
[2022-01-16 20:44] VITALS: BP 114/60
== END 2022-01-16 20:44 | disposition home or self-care (01) ==
LOC: EDUNIT# 17:42 → ER 17:44
DX: S39.012A Strain of muscle, fascia and tendon of lower back, initial encounter (principal); S93.402A Sprain of unspecified ligament of left ankle, initial encounter; M54.31 Sciatica, right side; M53.3 Sacrococcygeal disorders, not elsewhere classified; F17.210 Nicotine dependence, cigarettes, uncomplicated; W18.30XA Fall on same level, unspecified, initial encounter
CPT/HCPCS: 36415; 72128; 72131; 73610; 73630; 74176; 80053; 80306; 81000; 85025; 85610; 85730; 93041

== ENCOUNTER 2022-03-27 14:52 | Emergency (ER) | payer MEDICARE, MEDICAID ==
[~2022-03-27] VITALS: Ht 175.3 cm; Wt 68.0 kg
[2022-03-27] MEDS ORDERED: NS IV 1000 ML 1,000 ML IV STA (15:13)
[2022-03-27 15:14] VITALS: BP 144/55
[2022-03-27] MEDS ORDERED: ONDANSETRON 4 MG/2 ML (SDV) Z0FRAN IVP ONE (15:15)
[2022-03-27] MEDS ORDERED: ONDANSETRON 4 MG (ZOFRAN) ORAL DISSOLVE TAB PO ONE ×2 (15:15→15:30)
--- NOTE | 2022-03-27 15:15 | ED GU-Female ---
General Chief Complaint: - Reproductive Stated Complaint: POSS UTI/KIDNEY INFECTION Source: patient Exam Limitations: no limitations History of Present Illness Date Seen by Provider: March 27, 2022 Time Seen by Provider: 15:17 Initial Comments Patient is a 61-year-old female with a history of urinary tract infection secondary to urinary reconstruction who presents ED with urinary symptoms. She states she has had pain with urination with frequent urination that started this morning. She reports some suprapubic discomfort with some mild right-sided flank pain. She states this feels like a urinary tract infection. She reports nausea with one episode of vomiting. She denies of any diarrhea, chest pain, cough, shortness of breath, fever. She states she is wanting Toradol shot and oral Zofran without any lab work at this time. She states this feels like a urinary tract infection. Allergies and Home Medications Allergies Coded Allergies: Sulfa (Sulfonamide Antibiotics) (Verified Allergy, Unknown, 09/13/15) Patient Home Medication List Home Medication List Reviewed: Yes Albuterol Sulfate (Ventolin Hfa) 18 Gm Hfa.aer.ad, 2 PUFF PO Q6H PRN for SHORTNESS OF BREATH, (Reported) Entered as Reported by: RONEY ARTEAGA on 04/03/20 0951 Apixaban (Eliquis) 5 Mg Tablet, 5 MG PO BID Prescribed by: IRINA MOLINA on 01/24/21 235 Carisoprodol (Carisoprodol) 350 Mg Tablet, 350 MG PO TID, (Reported) Entered as Reported by: RONEY ARTEAGA on 04/03/20 0951 Cefdinir (Cefdinir) 300 Mg Capsule, 300 MG PO BID Prescribed by: KENDRA TRUJILLO on 09/08/20 1528 Cefdinir (Cefdinir) 300 Mg Capsule, 300 MG PO BID Prescribed by: IRINA MOLINA on 08/27/21 1553 Cefdinir (Cefdinir) 300 Mg Capsule, 300 MG PO BID Prescribed by: DONATO VELOZ on 10/17/21 1644 Ceftriaxone Sodium (Ceftriaxone) 1 Gm Vial, 1 GM IJ DAILY Prescribed by: NATALIO PRECIADO on 04/04/20 1242 Cephalexin (Cephalexin) 500 Mg Tablet, 500 MG PO BID Prescribed by: IRINA MOLINA on 01/24/21 2357 Cephalexin (Cephalexin) 500 Mg Tablet, 500 MG PO BID Prescribed by: PIA GOETZ on 03/27/22 1556 Estradiol (Estradiol Patch Twice weekly 0.05mg/hr) 1 Each Patch.tdwk, 1 EACH TD MON,FRI, (Reported) Entered as Reported by: RONEY ARTEAGA on 04/03/20 1029 Fexofenadine HCl (Azul Allergy) 180 Mg Tablet, 180 MG PO DAILY, (Reported) Entered as Reported by: RONEY ARTEAGA on 04/03/20 1033 Hydrocodone/Acetaminophen (Hydrocodone-Acetamin 5-325 mg) 1 Each Tablet, 1 TAB PO Q6H PRN for PAIN-MODERATE (5-7) Prescribed by: IRINA MOLINA on 08/27/21 1554 Hydroxychloroquine Sulfate (Plaquenil) 200 Mg Tablet, 200 MG PO HS, (Reported) Entered as Reported by: JU RAE on 10/13/16 1632 Ketorolac Tromethamine (Ketorolac Tromethamine) 10 Mg Tablet, 10 MG PO Q8H Prescribed by: SNEHAL DYE on 08/17/21 1610 Ketorolac Tromethamine (Ketorolac Tromethamine) 10 Mg Tablet, 10 MG PO Q6H Prescribed by: KENDRA TRUJILLO on 01/16/222017 Levothyroxine Sodium (Levothyroxine Sodium) 88 Mcg Tablet, 88 MCG PO DAILY, (Reported) Entered as Reported by: JU RAE on 10/13/16 1632 Ondansetron (Ondansetron Odt) 4 Mg Tab.rapdis, 4 MG PO Q4H Prescribed by: KENDRA TRUJILLO on 09/08/20 1539 Ondansetron (Ondansetron Odt) 4 Mg Tab.rapdis, 4 MG PO Q6H Prescribed by: PIA GOETZ on 03/27/22 1556 Paroxetine HCl (Paroxetine HCl) 40 Mg Tablet, 40 MG PO DAILY, (Reported) Entered as Reported by: RONEY ARTEAGA on 04/03/20 0951 Phenazopyridine HCl (Pyridium) 200 Mg Tablet, 1 TAB PO TID Prescribed by: KENDRA TRUJILLO on 09/08/20 1528 Phenazopyridine HCl (Pyridium) 200 Mg Tablet, 1 TAB PO TID Prescribed by: DONATO VELOZ on 02/13/21 1426 Phenazopyridine HCl (Pyridium) 100 Mg Tablet, 100 MG PO TID Prescribed by: SNEHAL DYE on 08/17/21 1610 Prednisone (Prednisone) 10 Mg Tab, 10 MG PO HS, (Reported) Entered as Reported by: RONEY ARTEAGA on 04/03/20 0951 Sumatriptan Succinate (Sumatriptan Succinate) 100 Mg Tablet, 100 MG PO BID PRN for MIGRAINE, (Reported) Entered as Reported by: RONEY ARTEAGA on 04/03/20 0953 Review of Systems Review of Systems Constitutional: No chills, No diaphoresis, No malaise EENTM: No hearing loss, No blurred vision, No double vision Respiratory: No dyspnea on exertion Cardiovascular: No chest pain Gastrointestinal: abdominal pain; No constipation, No diarrhea; nausea, vomiting Genitourinary: burning; denies discharge; dysuria, frequency Musculoskeletal: back pain; No joint pain Skin: No change in color, No change in hair/nails Psychiatric/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: Denies Anxiety, Denies Depressed All Other Systemes Reviewed Negative Unless Noted: Yes Past Prsxzcs-Qwfulj-Awfzpp Hx Immunizations Up To Date Tetanus Booster (TDap): Unknown First/Initial COVID19 Vaccinat: NONE Second COVID19 Vaccination Morales: NONE Third COVID19 Vaccination Date: NONE Seasonal Allergies Seasonal Allergies: No Past Medical History Surgery/Hospitalization HX: 6 BLADDER/ URETHRAL SURGERIES PMH: MS, LUPUS, HYPOTHYROIDISM Surgeries: Yes Bladder Surgery, Hysterectomy Respiratory: Yes COPD Cardiac: No 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 Genitourinary: Yes (bladder issues related to mesh, chronic abdominal pelvic pain) UTI-Chronic Gastrointestinal: No Musculoskeletal: Yes Chronic Back Pain Endocrine: Yes Hypothyroidsim, Diabetes, Non-Insulin dep, Lupus HEENT: No Cancer: No Psychosocial: No Integumentary: No Blood Disorders: No Family Medical History Cardiovascular disease 19 FATHER Congenital disease G8 SISTER (a muscle disease that is hereditary) Diabetes mellitus 19 FATHER Thyroid disease 19 MOTHER Physical Exam Vital Signs Vital Signs - First Documented 03/27/22 15:14 Temp 36.2 Pulse 96 Resp 22 B/P (MAP) 144/55 (84) Pulse Ox 96 O2 Delivery Room Air Capillary Refill : Height, Weight, BMI Height: 5'10.00" Weight: 125lbs. oz. 56.603269td; 22.00 BMI Method:Stated General Appearance: WD/WN, no apparent distress HEENT: PERRL/EOMI, normal ENT inspection, TMs normal, pharynx normal Neck: non-tender, full range of motion, supple Cardiovascular: regular rate, rhythm, no edema, no gallop, no JVD, no murmur Respiratory: chest non-tender, lungs clear, normal breath sounds, no respiratory distress, no accessory muscle use Gastrointestinal: normal bowel sounds, soft, no organomegaly, tenderness (Suprapubic tenderness) Back: normal inspection, no CVA tenderness Extremities: normal range of motion, non-tender, normal inspection, no pedal edema 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, no motor/sensory deficits, alert, oriented x 3 Skin: normal color, warm/dry Progress/Results/Core Measures Suspected Sepsis SIRS Temperature: Pulse: Respiratory Rate: Blood Pressure / Mean: Results/Orders Lab Results Laboratory Tests Test 03/27/22 15:05 Range/Units Urine Color YELLOW Urine Clarity CLEAR Urine pH 6.5 5-9 Urine Specific [place] <=1.005 1.016-1.022 Urine Protein NEGATIVE NEGATIVE Urine Glucose (UA) NEGATIVE NEGATIVE Urine Ketones NEGATIVE NEGATIVE Urine Nitrite NEGATIVE NEGATIVE Urine Bilirubin NEGATIVE NEGATIVE Urine Urobilinogen 0.2 < = 1.0 MG/DL Urine Leukocyte Esterase 3+ H NEGATIVE Urine RBC (Auto) NEGATIVE NEGATIVE Urine RBC 0-2 /HPF Urine WBC 50-100 H /HPF Urine Squamous Epithelial Cells 0-2 /HPF Urine Crystals NONE /LPF Urine Bacteria MODERATE H /HPF Urine Casts NONE /LPF Urine Mucus NEGATIVE /LPF Urine Culture Indicated YES My Orders Orders - SNEHAL SIMPSON Ua Culture If Indicated (03/27/22 14:56) Ondansetron Injection (Zofran Injectio (03/27/22 15:15) Ondansetron Oral Dissolve Tab (Zofran (03/27/22 15:30) Ketorolac Injection (Toradol Injection) (03/27/22 15:30) Urine Culture (03/27/22 15:05) Ceftriaxone 1 Gm Pre-Mix (Rocephin 1 Gm (03/27/22 15:54) Ceftriaxone (Rocephin) (03/27/22 16:00) Lidocaine 1% Inj 20 Ml (Xylocaine 1% Inj (03/27/22 16:00) Medications Given in ED Current Medications Medications Dose Ordered Sig/Jens Route Start Time Stop Time Status Last Admin Dose Admin Ceftriaxone Sodium 1,000 mg ONCE ONCE IM 03/27/22 16:00 03/27/22 16:01 DC 03/27/22 16:08 1,000 MG Ketorolac Tromethamine 30 mg ONCE ONCE IM 03/27/22 15:30 03/27/22 15:31 DC 03/27/22 15:23 30 MG Lidocaine HCl 2.1 ml ONCE ONCE INJ 03/27/22 16:00 03/27/22 16:01 DC 03/27/22 16:08 2.1 ML Ondansetron HCl 4 mg ONCE ONCE PO 03/27/22 15:30 03/27/22 15:31 DC 03/27/22 15:23 4 MG Vital Signs/I&O 03/27/22 03/27/22 03/27/22 15:14 16:10 16:15 Temp 36.2 Pulse 96 66 66 Resp 22 B/P (MAP) 144/55 (84) Pulse Ox 96 O2 Delivery Room Air O2 Flow Rate Capillary Refill : Departure Communication (PCP) Patient with a history of urinary tract infections. She states today symptoms feels very similar. Symptoms started this morning. Some mild right flank pain with suprapubic tenderness. No surgical abdomen or peritoneal signs. urinalysis was positive for urinary tract infection. Was refusing any lab work. Was requesting oral Zofran and IM Toradol which was provided. Improvement of pain. Patient was given a dose of IM Rocephin secondary to her urinary tract infection. Will discharge with Keflex. She is requesting Zofran as needed for nausea. If any worsening symptoms such as worsening abdominal pain, fever, chills, vomiting to return back to ED. She was slightly tachycardic but that improved to 73 bpm and patient is afebrile. History of urinary tract infections. History of reconstruction surgery of her bladder. Impression Primary Impression: UTI (urinary tract infection) Disposition: HOME, SELF-CARE Condition: Stable Departure-Patient Inst. Decision time for Depature: 15:55 Referrals: ELY DOBBINS MD (PCP/Family) Primary Care Physician Patient Instructions: Urinary Tract Infection, Adult (DC) Scripts Ondansetron (Ondansetron Odt) 4 Mg Tab.rapdis 4 MG PO Q6H, #8 TAB Prov: SNEHAL SIMPSON 03/27/22 Cephalexin (Cephalexin) 500 Mg Tablet 500 MG PO BID for 10 Days, #20 TAB Prov: SNEHAL SIMPSON 03/27/22 SNEHAL SIMPSON March 27, 2022 15:15
[2022-03-27] MEDS ORDERED: KETOROLAC 30 MG/ML VIAL IM ONE (15:30)
[2022-03-27 15:32] LABS: BILIRUBIN,URINE NEGATIVE (NEGATIVE); CLARITY,URINE CLEAR; COLOR,URINE YELLOW; GLUCOSE, URINE (UA) NEGATIVE (NEGATIVE); KETONES,URINE NEGATIVE (NEGATIVE); LEUKOCYTE ESTERASE ,URINE 3+ (NEGATIVE); NITRITE,URINE NEGATIVE (NEGATIVE); PH,URINE 6.5 (5-9); PROTEIN,URINE NEGATIVE (NEGATIVE)
[2022-03-27 15:43] LABS: BACTERIA,URINE MODERATE /HPF; RBC,URINE 0-2 /HPF; SQUAMOUS EPITHELIAL CELL,UR 0-2 /HPF; WBC,URINE 50-100 /HPF
[2022-03-27] MEDS ORDERED: cefTRIAXone 1 GM PRE-MIX 50 ML IV STA (15:54)
[2022-03-27] MEDS ORDERED: CEPH500T PO (15:56)
[2022-03-27] MEDS ORDERED: ONDA4TAB11 PO (15:56)
[2022-03-27] MEDS ORDERED: cefTRIAXone 1,000 MG VIAL IM ONE (16:00)
[2022-03-27] MEDS ORDERED: LIDOCAINE 1% INJ 20 ML VIAL INJ ONE (16:00)
== END 2022-03-27 16:14 | disposition home or self-care (01) ==
LOC: EDUNIT# 14:52 → ER 14:53
DX: N39.0 Urinary tract infection, site not specified (principal); R00.0 Tachycardia, unspecified; Z28.310 Unvaccinated for COVID-19; Z98.890 Other specified postprocedural states; Z90.710 Acquired absence of both cervix and uterus
CPT/HCPCS: 81000; 87077; 87088; 87186; 99285

== ENCOUNTER 2022-04-08 13:43 | Observation (INO) | payer MEDICARE, MEDICAID ==
[~2022-04-08] VITALS: Ht 177.8 cm; Wt 74.8 kg
[2022-04-08 14:01] LABS: BILIRUBIN,URINE NEGATIVE (NEGATIVE); CLARITY,URINE CLEAR; GLUCOSE, URINE (UA) TRACE (NEGATIVE); KETONES,URINE NEGATIVE (NEGATIVE); LEUKOCYTE ESTERASE ,URINE 3+ (NEGATIVE); NITRITE,URINE POSITIVE (NEGATIVE); PH,URINE 6.5 (5-9); PROTEIN,URINE TRACE (NEGATIVE)
--- NOTE | 2022-04-08 14:03 | ED GU-Female ---
General Stated Complaint: PAINFUL URINATION - FEVER Source: patient Exam Limitations: no limitations (SNEHAL SIMPSON) History of Present Illness Date Seen by Provider: Apr 08, 2022 Time Seen by Provider: 14:00 Initial Comments Patient is a 61-year-old female presents ED with with urinary symptoms. She states she has been having urinary symptoms over the past 3 weeks. Burning with urination and frequent urination. She reports suprapubic discomfort bilateral flank pain. Patient states she was seen here in the ER and was given Keflex. She went back to her primary care physician for continued urinary symptoms was given Macrobid and then linezolid without much improvement. Patient was recommended come to ED for further evaluation. She denies vomiting, fever, chest pain, shortness of breath, headache, dizziness. History of frequent urinary tract infections (SNEHAL SIMPSON) Allergies and Home Medications Allergies Coded Allergies: Sulfa (Sulfonamide Antibiotics) (Verified Allergy, Unknown, 09/13/15) Patient Home Medication List Home Medication List Reviewed: Yes (SNEHAL SIMPSON) Albuterol Sulfate (Ventolin Hfa) 18 Gm Hfa.aer.ad, 2 PUFF PO Q6H PRN for SHORTNESS OF BREATH, (Reported) Entered as Reported by: RONEY ARTEAGA on 04/03/20 0951 Apixaban (Eliquis) 5 Mg Tablet, 5 MG PO BID Prescribed by: IRINA MOLINA on 01/24/21 2357 Carisoprodol (Carisoprodol) 350 Mg Tablet, 350 MG PO TID, (Reported) Entered as Reported by: RONEY ARTEAGA on 04/03/20 0951 Cefdinir (Cefdinir) 300 Mg Capsule, 300 MG PO BID Prescribed by: KENDRA TRUJILLO on 09/08/20 1528 Cefdinir (Cefdinir) 300 Mg Capsule, 300 MG PO BID Prescribed by: IRINA MOLINA on 08/27/21 1553 Cefdinir (Cefdinir) 300 Mg Capsule, 300 MG PO BID Prescribed by: DONATO VELOZ on 10/17/21 1644 Ceftriaxone Sodium (Ceftriaxone) 1 Gm Vial, 1 GM IJ DAILY Prescribed by: NATALIO PRECIADO on 04/04/20 1242 Cephalexin (Cephalexin) 500 Mg Tablet, 500 MG PO BID Prescribed by: IRINA MOLINA on 01/24/21 2357 Cephalexin (Cephalexin) 500 Mg Tablet, 500 MG PO BID Prescribed by: PIA GOETZ on 03/27/22 1556 Estradiol (Estradiol Patch Twice weekly 0.05mg/hr) 1 Each Patch.tdwk, 1 EACH TD MON,FRI, (Reported) Entered as Reported by: RONEY ARTEAGA on 04/03/20 1029 Fexofenadine HCl (Azul Allergy) 180 Mg Tablet, 180 MG PO DAILY, (Reported) Entered as Reported by: RONEY ARTEAGA on 04/03/20 1033 Hydrocodone/Acetaminophen (Hydrocodone-Acetamin 5-325 mg) 1 Each Tablet, 1 TAB PO Q6H PRN for PAIN-MODERATE (5-7) Prescribed by: IRINA MOLINA on 08/27/21 1554 Hydroxychloroquine Sulfate (Plaquenil) 200 Mg Tablet, 200 MG PO HS, (Reported) Entered as Reported by: JU RAE on 10/13/16 1632 Ketorolac Tromethamine (Ketorolac Tromethamine) 10 Mg Tablet, 10 MG PO Q8H Prescribed by: SNEHAL DYE on 08/17/21 1610 Ketorolac Tromethamine (Ketorolac Tromethamine) 10 Mg Tablet, 10 MG PO Q6H Prescribed by: KENDRA TRUJILLO on 01/16/222017 Levothyroxine Sodium (Levothyroxine Sodium) 88 Mcg Tablet, 88 MCG PO DAILY, (Reported) Entered as Reported by: JU RAE on 10/13/16 1632 Ondansetron (Ondansetron Odt) 4 Mg Tab.rapdis, 4 MG PO Q4H Prescribed by: KENDRA TRUJILLO on 09/08/20 1539 Ondansetron (Ondansetron Odt) 4 Mg Tab.rapdis, 4 MG PO Q6H Prescribed by: PIA GOETZ on 03/27/22 1556 Paroxetine HCl (Paroxetine HCl) 40 Mg Tablet, 40 MG PO DAILY, (Reported) Entered as Reported by: RNOEY ARTEAGA on 04/03/20 0951 Phenazopyridine HCl (Pyridium) 200 Mg Tablet, 1 TAB PO TID Prescribed by: KENDRA TRUJILLO on 09/08/20 1528 Phenazopyridine HCl (Pyridium) 200 Mg Tablet, 1 TAB PO TID Prescribed by: DONATO VELOZ on 02/13/21 1426 Phenazopyridine HCl (Pyridium) 100 Mg Tablet, 100 MG PO TID Prescribed by: SNEHAL DYE on 08/17/21 1610 Prednisone (Prednisone) 10 Mg Tab, 10 MG PO HS, (Reported) Entered as Reported by: RONEY ARTEAGA on 04/03/20 0951 Sumatriptan Succinate (Sumatriptan Succinate) 100 Mg Tablet, 100 MG PO BID PRN for MIGRAINE, (Reported) Entered as Reported by: RONEY ARTEAGA on 04/03/20 0953 Review of Systems Review of Systems Constitutional: No chills, No diaphoresis; weakness EENTM: No ear pain, No blurred vision, No double vision Respiratory: No cough, No dyspnea on exertion, No orthopnea, No short of breath Cardiovascular: No chest pain Gastrointestinal: abdominal pain; No diarrhea, No nausea, No vomiting Genitourinary: burning, frequency, flank pain Musculoskeletal: back pain; No joint pain Skin: No change in color (SNEHAL SIMPSON) All Other Systemes Reviewed Negative Unless Noted: Yes (SNEHAL SIMPSON) Past Ornwuzj-Ntgahp-Ewuawn Hx Immunizations Up To Date Tetanus Booster (TDap): Unknown First/Initial COVID19 Vaccinat: NONE Second COVID19 Vaccination Morales: NONE Third COVID19 Vaccination Date: NONE (SNEHAL SIMPSON) Seasonal Allergies Seasonal Allergies: No (SNEHAL SIMPSON) Past Medical History Surgery/Hospitalization HX: 6 BLADDER/ URETHRAL SURGERIES PMH: MS, LUPUS, HYPOTHYROIDISM Surgeries: Yes Bladder Surgery, Hysterectomy Respiratory: Yes COPD Cardiac: No 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 Genitourinary: Yes (bladder issues related to mesh, chronic abdominal pelvic pain) UTI-Chronic Gastrointestinal: No Musculoskeletal: Yes Chronic Back Pain Endocrine: Yes Hypothyroidsim, Diabetes, Non-Insulin dep, Lupus HEENT: No Cancer: No Psychosocial: No Integumentary: No Blood Disorders: No (SNEHAL SIMPSON) Family Medical History Cardiovascular disease 19 FATHER Congenital disease G8 SISTER (a muscle disease that is hereditary) Diabetes mellitus 19 FATHER Thyroid disease 19 MOTHER Physical Exam Vital Signs Vital Signs - First Documented 04/08/22 13:50 Temp 35.5 Pulse 89 Resp 16 B/P (MAP) 134/58 (83) O2 Delivery Room Air (ANDREI FRENCH MD) Vital Signs Capillary Refill : (SNEHAL SIMPSON) Height, Weight, BMI Height: 5'10.00" Weight: 125lbs. oz. [id number]; 22.00 BMI Method:Stated General Appearance: WD/WN, no apparent distress HEENT: PERRL/EOMI, normal ENT inspection, TMs normal, pharynx normal Neck: non-tender, full range of motion, normal inspection Cardiovascular: regular rate, rhythm, no edema, no gallop, no JVD Respiratory: chest non-tender, lungs clear, normal breath sounds, no r espiratory distress, no accessory muscle use Gastrointestinal: normal bowel sounds, soft, no organomegaly, tenderness (Suprapubic tenderness. 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, no motor/sensory deficits, a lert (SNEHAL SIMPSON) Focused Exam Lactate Level 04/08/22 14:41: Lactic Acid Level 0.71 (ANDREI FRENCH MD) Lactic Acid Level Laboratory Tests Test 04/08/22 14:41 Lactic Acid Level 0.71 MMOL/L (0.50-2.00) (ANDREI FRENCH MD) Progress/Results/Core Measures Suspected Sepsis SIRS Temperature: Pulse: Respiratory Rate: Laboratory Tests 04/08/22 14:02: White Blood Count 14.3H Blood Pressure / Mean: 04/08/22 14:41: Lactic Acid Level 0.71 Laboratory Tests 04/08/22 14:02: Creatinine 0.73, Platelet Count 250, Total Bilirubin 0.4 (SNEHAL SIMPSON) Results/Orders Lab Results Laboratory Tests Test 04/08/22 13:51 04/08/22 14:02 04/08/22 14:41 Range/Units Urine Color ORANGE Urine Clarity CLEAR Urine pH 6.5 5-9 Urine Specific [place] <=1.005 1.016-1.022 Urine Protein TRACE H NEGATIVE Urine Glucose (UA) TRACE H NEGATIVE Urine Ketones NEGATIVE NEGATIVE Urine Nitrite POSITIVE H NEGATIVE Urine Bilirubin NEGATIVE NEGATIVE Urine Urobilinogen 2.0 < = 1.0 MG/DL Urine Leukocyte Esterase 3+ H NEGATIVE Urine RBC (Auto) 1+ H NEGATIVE Urine RBC 2-5 H /HPF Urine WBC 50-100 H /HPF Urine Squamous Epithelial Cells 0-2 /HPF Urine Crystals NONE /LPF Urine Bacteria MODERATE H /HPF Urine Casts NONE /LPF Urine Mucus NEGATIVE /LPF Urine Culture Indicated YES White Blood Count 14.3 H 4.3-11.0 10^3/uL Red Blood Count 4.37 3.80-5.11 10^6/uL Hemoglobin 14.8 11.5-16.0 g/dL Hematocrit 44 35-52 % Mean Corpuscular Volume 100 H 80-99 fL Mean Corpuscular Hemoglobin 34 25-34 pg Mean Corpuscular Hemoglobin Concent 34 32-36 g/dL Red Cell Distribution Width 12.7 10.0-14.5 % Platelet Count 250 130-400 10^3/uL Mean Platelet Volume 9.0 9.0-12.2 fL Immature Granulocyte % (Auto) 1 % Neutrophils (%) (Auto) 66 42-75 % Lymphocytes (%) (Auto) 26 12-44 % Monocytes (%) (Auto) 7 0-12 % Eosinophils (%) (Auto) 1 0-10 % Basophils (%) (Auto) 1 0-10 % Neutrophils # (Auto) 9.4 H 1.8-7.8 10^3/uL Lymphocytes # (Auto) 3.7 1.0-4.0 10^3/uL Monocytes # (Auto) 1.0 0.0-1.0 10^3/uL Eosinophils # (Auto) 0.1 0.0-0.3 10^3/uL Basophils # (Auto) 0.1 0.0-0.1 10^3/uL Immature Granulocyte # (Auto) 0.1 0.0-0.1 10^3/uL Neutrophils % (Manual) 66 % Lymphocytes % (Manual) 23 % Monocytes % (Manual) 9 % Band Neutrophils 2 % Blood Morphology Comment NORMAL Sodium Level 136 135-145 MMOL/L Potassium Level 3.5 L 3.6-5.0 MMOL/L Chloride Level 102 98-107 MMOL/L Carbon Dioxide Level 25 21-32 MMOL/L Anion Gap 9 5-14 MMOL/L Blood Urea Nitrogen 6 L 7-18 MG/DL Creatinine 0.73 0.60-1.30 MG/DL Estimat Glomerular Filtration Rate 94 BUN/Creatinine Ratio 8 Glucose Level 71 70-105 MG/DL Calcium Level 8.7 8.5-10.1 MG/DL Corrected Calcium 9.0 8.5-10.1 MG/DL Total Bilirubin 0.4 0.1-1.0 MG/DL Aspartate Amino Transf (AST/SGOT) 21 5-34 U/L Alanine Aminotransferase (ALT/SGPT) 19 0-55 U/L Alkaline Phosphatase 36 L 40-136 U/L Total Protein 6.3 L 6.4-8.2 GM/DL Albumin 3.6 3.2-4.5 GM/DL Lipase 40 8-78 U/L Lactic Acid Level 0.71 0.50-2.00 MMOL/L (ANDREI FRENCH MD) My Orders Orders - ANDREI FRENCH MD Ct Abd/Pelvis Wo(Kidney Stone) (04/08/22 14:45) Vancomycin Injection (Vancomycin Injecti (04/08/22 15:15) Ceftriaxone 1 Gm Pre-Mix (Rocephin 1 Gm (04/08/22 15:15) (ANDREI FRENCH MD) Medications Given in ED Current Medications Medications Dose Ordered Sig/Jens Route Start Time Stop Time Status Last Admin Dose Admin Ceftriaxone Sodium/Dextrose 50 ml @ 100 mls/hr ONCE ONCE IV 04/08/22 15:15 04/08/22 15:44 DC 04/08/22 15:17 100 MLS/HR (ANDREI FRENCH MD) Vital Signs/I&O 04/08/22 13:50 Temp 35.5 Pulse 89 Resp 16 B/P (MAP) 134/58 (83) O2 Delivery Room Air (ANDREI FRENCH MD) Vital Signs/I&O Capillary Refill : (SNEHAL SIMPSON) Progress Note : Progress Note Patient seen by me as well. Labs reviewed. I did discuss current history with the patient. She has been on antibiotics a few times over the last several weeks for infection. She did have urinary tract infection noted on 03/27. She has been on both Macrobid and linezolid and comes in today with increasing weakness and right flank pain and suprapubic pain. Patient does have known history of Enterococcus faecalis UTI from our last culture on 03/27/2022. She has persistence of symptoms indicating outpatient failure with oral therapeutics. Her doctor sent her here for further evaluation. Blood cultures and lactic acid ordered. We will initiate vancomycin and Rocephin 1 g IV. 1552: I have discussed the case with Dr. Ferguson. We did do CT scan and that does not show any obstruction on my view but results are pending and Dr. Ferguson will follow final results. We will admit overnight for continued vancomycin and potentially Rocephin depending on how she is doing and cultures. Consideration for PICC line and outpatient therapy with IV antibiotics. All of this was discussed with patient who agrees. She is very appreciative of the care and agrees to admission. Admit, observation status. Patient agrees to plan. (ANDREI FRENCH MD) Diagnostic Imaging Diagonstic Imaging: CT Plain Films/CT/US/NM/MRI: abdomen, pelvis (ANDREI FRENCH MD) Departure Communication (Admissions) Time/Spoke to Admitting Phy: 14:39 (ANDREI FRENCH MD) Communication (PCP) Patient has been on 3 different antibiotics for a reoccurring UTI for the past 3 weeks. Her vital signs were stable. Normal lactic acid. Blood cultures pending. elevated white blood count 14. Has tried linezolid, Keflex and Macrobid without much improvement. Susceptible to vancomycin. Culture Enterococcus faecalis. Patient was discussed with Dr. French who contacted Dr. Ferguson for admission for IV antibiotics who accepts patient for failed outpatient therapy. CT scan abd and pelvis to rule out pyelonephritis versus nephrolithiasis. Dr. French took over care (SNEHAL SIMPSON) Impression Primary Impression: UTI (urinary tract infection) Qualified Codes: N30.00 - Acute cystitis without hematuria Additional Impression: Sepsis Qualified Codes: A41.9 - Sepsis, unspecified organism Disposition: ADMITTED INPATIENT Condition: Stable Admissions Decision to Admit Reason: Admit from ER (General) Decision to Admit/Date: Apr 08, 2022 Time/Decision to Admit Time: 15:29 (SNEHAL SIMPSON) Decision to Admit Reason: Admit from ER (General) Decision to Admit/Date: Apr 08, 2022 Time/Decision to Admit Time: 15:29 (ANDREI FRENCH MD) Departure-Patient Inst. Referrals: ELY DOBBINS MD (PCP/Family) Primary Care Physician SNEHAL SIMPSON Apr 08, 2022 14:03 ANDREI FRENCH MD Apr 08, 2022 15:59
[2022-04-08 14:09] LABS: BASOPHILS # (AUTO) 0.1 10^3/uL (0.0-0.1); BASOPHILS % (AUTO) 1 % (0-10); EOSINOPHILS # (AUTO) 0.1 10^3/uL (0.0-0.3); EOSINOPHILS % (AUTO) 1 % (0-10); HEMATOCRIT 44 % (35-52); HEMOGLOBIN 14.8 g/dL (11.5-16.0); LYMPHOCYTES # (AUTO) 3.7 10^3/uL (1.0-4.0); LYMPHOCYTES % (AUTO) 26 % (12-44); MEAN CORPUSCULAR HEMOGLOBIN 34 pg (25-34); MEAN CORPUSCULAR HGB CONC 34 g/dL (32-36); MEAN CORPUSCULAR VOLUME 100 fL (80-99); MONOCYTES % (AUTO) 7 % (0-12); NEUTROPHILS # (AUTO) 9.4 10^3/uL (1.8-7.8); NEUTROPHILS % (AUTO) 66 % (42-75); PLATELET COUNT 250 10^3/uL (130-400); WHITE BLOOD COUNT 14.3 10^3/uL (4.3-11.0)
[2022-04-08 14:21] LABS: BACTERIA,URINE MODERATE /HPF; COLOR,URINE ORANGE; SQUAMOUS EPITHELIAL CELL,UR 0-2 /HPF; WBC,URINE 50-100 /HPF
[2022-04-08 14:29] LABS: ALBUMIN 3.6 GM/DL (3.2-4.5); BILIRUBIN,TOTAL 0.4 MG/DL (0.1-1.0); CALCIUM 8.7 MG/DL (8.5-10.1); CREATININE SERUM 0.73 MG/DL (0.60-1.30); POTASSIUM 3.5 MMOL/L (3.6-5.0); TOTAL PROTEIN 6.3 GM/DL (6.4-8.2)
[2022-04-08 14:30] LABS: BAND NEUTROPHILS 2 %; LYMPHOCYTES % (MANUAL) 23 %; MONOCYTES % (MANUAL) 9 %; NEUTROPHILS % (MANUAL) 66 %; RBC MORPH NORMAL
[2022-04-08] MEDS ORDERED: NS IV 1000 ML 1,000 ML IV STA (14:39)
[2022-04-08] MEDS ORDERED: fentaNYL INJ 100 MCG/2 ML AMP IVP STA (14:47)
[2022-04-08] MEDS ORDERED: cefTRIAXone 1 GM PRE-MIX 50 ML IV ONE (15:15)
[2022-04-08] MEDS: VANCOMYCIN INJECTION 750 MG in NS (IVPB) 250 ML IV SCH ×2 (15:21→15:22)
[2022-04-08 15:48] VITALS: BP 116/71
--- NOTE | 2022-04-08 15:57 | Diagnostic Imaging Report ---
INDICATION: Urinary tract infection, flank pain. TECHNIQUE: Multiple contiguous axial images were obtained through the abdomen and pelvis without the use of intravenous contrast. Auto Exposure Controls were utilized during the CT exam to meet ALARA standards for radiation dose reduction. COMPARISON: 01/16/2022. FINDINGS: Visualized portions of the lung bases show dependent atelectatic changes. There is no consolidation or pleural fluid or free intraperitoneal air. The liver shows no focal lesion. Gallbladder is unremarkable. The spleen, adrenals, and pancreas appear normal. The kidneys, bilaterally, show no hydronephrosis. There is a nonocclusive stone in the inferior pole of the left kidney measuring about 3 mm. There is an exophytic lesion at the superior pole of the left kidney which appears unchanged compared to the prior study, this shows indeterminate Hounsfield units but does appear to be stable back to 2015. There is no retroperitoneal mass or adenopathy. There is no ascites or abnormal fluid collection. Visualized bowel loops are unremarkable. There is a prominent amount of stool in the colon. There is no pelvic mass or free fluid. Urinary bladder appears unremarkable. IMPRESSION: Small nonocclusive stone in left kidney. No ureteral stones or hydronephrosis. Stable exophytic lesion in the superior pole of left kidney, unchanged from 2015, as described above. There is no mass or abnormal fluid collection otherwise seen. Dictated by: Dictated on workstation # [id number]
[2022-04-08] MEDS ORDERED: ONDANSETRON 4 MG/2 ML (SDV) Z0FRAN IV PRN (17:00)
[2022-04-08] MEDS: NS IV 1000 ML 1,000 ML IV SCH (17:44)
[2022-04-08] MEDS ORDERED: morphine INJ 4 MG/ML 1 ML (VIAL/SYRINGE) ONE (19:37)
[2022-04-08] MEDS: morphine INJ 4 MG/ML 1 ML (VIAL/SYRINGE) IVP PRN ×2 (19:39→23:37)
[2022-04-08] MEDS ORDERED: ACETAMINOPHEN 500 MG TAB (TYLENOL) PO PRN (19:45)
[2022-04-08] MEDS ORDERED: morphine INJ 10 MG/ML 1ML (SYR OR VIAL) IVP PRN (19:45)
[2022-04-08 19:50] VITALS: BP 113/55
[2022-04-09 00:15] VITALS: BP 104/52
[2022-04-09 03:59] VITALS: BP 110/51
[2022-04-09] MEDS: VANCOMYCIN 1 GM/NS 250 ML IVPB IV SCH ×4 (05:12→16:09)
[2022-04-09 06:23] LABS: BASOPHILS # (AUTO) 0.1 10^3/uL (0.0-0.1); BASOPHILS % (AUTO) 1 % (0-10); EOSINOPHILS % (AUTO) 0 % (0-10); HEMATOCRIT 41 % (35-52); HEMOGLOBIN 13.6 g/dL (11.5-16.0); LYMPHOCYTES # (AUTO) 1.3 10^3/uL (1.0-4.0); LYMPHOCYTES % (AUTO) 15 % (12-44); MEAN CORPUSCULAR HEMOGLOBIN 34 pg (25-34); MEAN CORPUSCULAR HGB CONC 33 g/dL (32-36); MEAN CORPUSCULAR VOLUME 102 fL (80-99); MEAN PLATELET VOLUME 9.4 fL (9.0-12.2); MONOCYTES # (AUTO) 0.6 10^3/uL (0.0-1.0); MONOCYTES % (AUTO) 6 % (0-12); NEUTROPHILS # (AUTO) 7.1 10^3/uL (1.8-7.8); NEUTROPHILS % (AUTO) 78 % (42-75); PLATELET COUNT 222 10^3/uL (130-400); WHITE BLOOD COUNT 9.1 10^3/uL (4.3-11.0)
[2022-04-09 06:47] LABS: ALBUMIN 3.1 GM/DL (3.2-4.5); POTASSIUM 4.4 MMOL/L (3.6-5.0)
[2022-04-09 06:50] LABS: TOTAL PROTEIN 5.2 GM/DL (6.4-8.2)
[2022-04-09 06:52] LABS: BILIRUBIN,TOTAL 0.4 MG/DL (0.1-1.0)
[2022-04-09 06:53] LABS: CREATININE SERUM 0.61 MG/DL (0.60-1.30)
[2022-04-09 07:34] VITALS: BP 112/59
[2022-04-09] MEDS: morphine INJ 4 MG/ML 1 ML (VIAL/SYRINGE) IVP PRN ×3 (07:52→16:17)
[2022-04-09] MEDS: NS IV 1000 ML 1,000 ML IV SCH (08:36)
[2022-04-09] MEDS: cefTRIAXone 1 GM PRE-MIX 50 ML IV SCH (08:36)
--- NOTE | 2022-04-09 10:37 | History & Physical-Hospitalist ---
History of Present Illness HPI/Chief Complaint CC: UTI history of resistant organisms HPI: This is a 61 yr old female with a past medical history of Lupus and recurre nt UTI. She has had multiple treatments in the past and the bacteria is getting additionally resistant. She was placed on Rocephin and Vancomycin due to history of Klebsiella and enterococcus. Fosfomycin initiated. May be able to discharge her when the ID and sensitivity are completed by tomorrow morning. Source: patient Exam Limitations: no limitations Date Seen 04/09/22 Time Seen by a Provider: 11:30 Attending Physician Gerardo Figueroa MD PCP Admitting Physician: Priscilla Ferguson MD Attending Physician: Noa Gordon DO Referring Physician Date of Admission Apr 08, 2022 at 15:45 Home Medications & Allergies Home Medications Reviewed patient Home Medication Reconciliation performed by pharmacy medication reconciliations surfacing technician and/or nursing. Patients Allergies have been reviewed. Allergies Allergies Coded Allergies Sulfa (Sulfonamide Antibiotics) (Verified Allergy, Unknown, 09/13/15) Past Lyaxwdj-Wysynd-Mixtmv Hx Patient Social History Marrital Status: single Employed/Student: unemployed Tobacco Use?: Yes Tobacco type used: Cigars Smoking Status: Current Everyday Smoker Smokeless Tobacco Frequency: Never a User Use of E-Cig and/or Vaping dev: Yes Use of E-Cig and/or Vaping Yrn: Never a User Substance use?: No Alcohol Use?: No Alcohol Frequency: Once in a while Pt feels they are or have been: No Immunizations Up To Date First/Initial COVID19 Vaccinat: NONE Second COVID19 Vaccination Morales: NONE Tetanus Booster (TDap): Unknown Hepatitis A: No Hepatitis B: No Date of Pneumonia Vaccine: Apr 02, 2018 Seasonal Allergies Seasonal Allergies: No Current Status status: No status: No Advance Directives: Yes Advance Directive Location: Home Communicates: Verbally Primary Language: Taiwanese Preferred Spoken Language: Taiwanese Is interpretation needed?: No Implanted or Applied Medical D: Other Past Medical History Surgeries: Bladder Surgery, Hysterectomy 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 UTI-Chronic Chronic Back Pain Hypothyroidsim, Diabetes, Non-Insulin dep, Lupus Blood Disorders: No Family Medical History Cardiovascular disease 19 FATHER Congenital disease G8 SISTER (a muscle disease that is hereditary) Diabetes mellitus 19 FATHER Thyroid disease 19 MOTHER Review of Systems Constitutional: see HPI, dizziness, fever, malaise, weakness EENTM: no symptoms reported Respiratory: no symptoms reported Cardiovascular: no symptoms reported Gastrointestinal: no symptoms reported, nausea, vomiting Genitourinary: decreased output Musculoskeletal: no symptoms reported Skin: no symptoms reported Psychiatric/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: No Symptoms Reported All Other Systems Reviewed Negative Unless Noted: Yes Physical Exam Physical Exam Vital Signs Vital Signs - First Documented 04/08/22 04/08/22 13:50 15:48 Temp 35.5 Pulse 89 Resp 16 B/P (MAP) 134/58 (83) Pulse Ox 99 O2 Delivery Room Air Capillary Refill : Less Than 3 Seconds Height, Weight, BMI Height: 5'10.00" Weight: 125lbs. oz. 56.403792ni; 23.66 BMI Method:Stated General Appearance: No Apparent Distress, Chronically ill Eyes: Right Eye Normal Inspection, Right Eye PERRL HEENT: PERRL/EOMI, Normal ENT Inspection, Pharynx Normal, Moist Mucous Membranes Neck: Full Range of Motion, Normal Inspection, Non Tender Respiratory: Chest Non Tender, Lungs Clear, Normal Breath Sounds, No Accessory Muscle Use, No Respiratory Distress Cardiovascular: Regular Rate, Rhythm, No Edema, No Gallop, No JVD, No Murmur, Normal Peripheral Pulses Gastrointestinal: Normal Bowel Sounds, No Organomegaly, No Pulsatile Mass, Non Tender, Soft Back: Normal Inspection, No CVA Tenderness, No Vertebral Tenderness Extremity: Normal Capillary Refill, Normal Inspection, Normal Range of Motion, Non Tender, No Calf Tenderness, No Pedal Edema Neurologic/Psychiatric: Alert, Oriented x3, No Motor/Sensory Deficits, Normal Mood/Affect Skin: Normal Color, Warm/Dry Lymphatic: No Adenopathy Results Results/Procedures Labs Laboratory Tests 04/08/22 14:02 04/09/22 06:10 Patient resulted labs reviewed. Assessment/Plan Admission Diagnosis Assessment: Sepsis UTI presumed resistant SLE DM MS Plan: IV abx Await UCx Home meds Lovenox HLIVF Ambulate Admission Status: Observation Diagnosis/Problems Diagnosis/Problems (1) Sepsis Status: Acute Qualifiers: Sepsis type: sepsis due to unspecified organism Sepsis acute organ dysfunction status: without acute organ dysfunction Qualified Codes: A41.9 - Sepsis, unspecified organism (2) UTI (urinary tract infection) Status: Acute Qualifiers: Urinary tract infection type: acute cystitis Hematuria presence: without hematuria Qualified Codes: N30.00 - Acute cystitis without hematuria NOA GORDON DO Apr 09, 2022 10:36
[2022-04-09] MEDS ORDERED: NF-FOSFPKT PO (11:52)
[2022-04-09 12:13] VITALS: BP 115/53
[2022-04-09] MEDS ORDERED: FOSFOMYCIN 3 GM PACK (MONUROL) PO SCH (12:30)
[2022-04-09] MEDS ORDERED: ALPRAZolam 0.25 MG (XANAX) TAB PO PRN (13:00)
[2022-04-09] MEDS ORDERED: ONDANSETRON 4 MG/2 ML (SDV) Z0FRAN IVP PRN (13:00)
[2022-04-09] MEDS ORDERED: diphenhydrAMINE 25 MG TAB (BENADRYL) PO PRN (13:00)
[2022-04-09] MEDS ORDERED: ONDANSETRON 4 MG (ZOFRAN) ORAL DISSOLVE TAB PO PRN (13:00)
[2022-04-09] MEDS ORDERED: CALCIUM CARBONATE 500 MG (TUMS) TAB.CHEW PO PRN (13:00)
[2022-04-09] MEDS ORDERED: ENOXAPARIN 40 MG/0.4 ML (LOVENOX) SYR SC SCH (13:00)
[2022-04-09] MEDS ORDERED: MELATONIN 3 MG TABLET PO PRN (13:00)
[2022-04-09] MEDS ORDERED: HYDR200T46 PO (13:07)
[2022-04-09] MEDS ORDERED: FEXO180T84 PO (13:07)
[2022-04-09] MEDS ORDERED: ACHD5005 PO (13:07)
[2022-04-09] MEDS ORDERED: ACYC-108 PO (13:07)
[2022-04-09] MEDS ORDERED: LIDO700A45 TD (13:07)
[2022-04-09] MEDS ORDERED: ESTR1PAT91 TD (13:07)
[2022-04-09 15:36] VITALS: BP 140/71
[2022-04-09] MEDS: DOCUSATE SODIUM 100 MG (COLACE) CAP PO SCH (20:01)
[2022-04-09] MEDS: SENNA W/DOCUSATE (SENOKOT S) TABLET PO SCH (20:01)
[2022-04-09] MEDS ORDERED: KETOROLAC 30 MG/ML VIAL ONE (20:04)
[2022-04-09] MEDS: KETOROLAC 30 MG/ML VIAL IVP PRN (20:05)
[2022-04-09] MEDS ORDERED: HYDROcodone/APAP 5 MG/325 MG (LORTAB) TAB PO PRN (20:15)
[2022-04-09] MEDS ORDERED: RT-ALBUTEROL SULF 2.5 MG/3 ML PRE-MIX VIAL IH PRN (20:15)
[2022-04-09] MEDS ORDERED: LIDOCAINE 4% (SALONPAS) PATCH EXT PRN (20:15)
[2022-04-09] MEDS ORDERED: [UNRECOGNIZED DRUG - OTHER] TD SCH (20:15)
[2022-04-09] MEDS ORDERED: ESTRADIOL TD SCH (20:15)
[2022-04-09 20:18] VITALS: BP 115/54
[2022-04-09] MEDS: CARISOPRODOL 350 MG (SOMA) TAB PO SCH (21:51)
[2022-04-09] MEDS ORDERED: SUMAtriptan 50 MG (IMITREX) TAB PO PRN (22:00)
[2022-04-10] VITALS: BP 110/53
[2022-04-10] MEDS: morphine INJ 4 MG/ML 1 ML (VIAL/SYRINGE) IVP PRN (00:55)
[2022-04-10 04:00] VITALS: BP 107/53
[2022-04-10] MEDS: VANCOMYCIN 1 GM/NS 250 ML IVPB IV SCH ×2 (04:47)
[2022-04-10] MEDS: KETOROLAC 30 MG/ML VIAL IVP PRN ×2 (05:23→11:23)
[2022-04-10 06:44] LABS: BASOPHILS # (AUTO) 0.1 10^3/uL (0.0-0.1); BASOPHILS % (AUTO) 1 % (0-10); EOSINOPHILS % (AUTO) 1 % (0-10); HEMATOCRIT 42 % (35-52); HEMOGLOBIN 13.9 g/dL (11.5-16.0); LYMPHOCYTES # (AUTO) 0.9 10^3/uL (1.0-4.0); LYMPHOCYTES % (AUTO) 14 % (12-44); MEAN CORPUSCULAR HEMOGLOBIN 34 pg (25-34); MEAN CORPUSCULAR HGB CONC 33 g/dL (32-36); MEAN CORPUSCULAR VOLUME 103 fL (80-99); MEAN PLATELET VOLUME 9.3 fL (9.0-12.2); MONOCYTES # (AUTO) 0.3 10^3/uL (0.0-1.0); MONOCYTES % (AUTO) 5 % (0-12); NEUTROPHILS # (AUTO) 5.3 10^3/uL (1.8-7.8); NEUTROPHILS % (AUTO) 79 % (42-75); PLATELET COUNT 214 10^3/uL (130-400); WHITE BLOOD COUNT 6.7 10^3/uL (4.3-11.0)
[2022-04-10 06:52] LABS: ALBUMIN 3.3 GM/DL (3.2-4.5); POTASSIUM 5.1 MMOL/L (3.6-5.0)
[2022-04-10 06:54] LABS: CALCIUM 8.5 MG/DL (8.5-10.1)
[2022-04-10 06:55] LABS: TOTAL PROTEIN 5.5 GM/DL (6.4-8.2)
[2022-04-10 06:57] LABS: BILIRUBIN,TOTAL 0.3 MG/DL (0.1-1.0)
[2022-04-10 06:59] LABS: CREATININE SERUM 0.69 MG/DL (0.60-1.30)
[2022-04-10] MEDS ORDERED: LEVOTHYROXINE 88 MCG (LEVOTHORID) TAB PO SCH (07:00)
[2022-04-10 07:26] VITALS: BP 110/54
[2022-04-10] MEDS: cefTRIAXone 1 GM PRE-MIX 50 ML IV SCH (07:54)
[2022-04-10] MEDS: CARISOPRODOL 350 MG (SOMA) TAB PO SCH (07:56)
[2022-04-10] MEDS: SENNA W/DOCUSATE (SENOKOT S) TABLET PO SCH (07:57)
[2022-04-10] MEDS: DOCUSATE SODIUM 100 MG (COLACE) CAP PO SCH (07:57)
[2022-04-10] MEDS ORDERED: PARoxetine 20 MG (PAXIL) TAB PO SCH (09:00)
[2022-04-10] MEDS ORDERED: ACYCLOVIR 400 MG TABLET (ZOVIRAX) PO SCH (09:00)
[2022-04-10] MEDS ORDERED: predniSONE 10 MG TAB PO SCH (09:00)
[2022-04-10] MEDS ORDERED: LORATADINE (CLARITIN) 10 MG TAB PO SCH (09:00)
[2022-04-10 11:26] VITALS: BP 122/55
[2022-04-10] MEDS ORDERED: AMOX500T2 PO (11:42)
[2022-04-10] MEDS: AMOXICILLIN 250 MG (POLYMOX) CAP PO SCH ×2 (11:43→11:44)
--- NOTE | 2022-04-10 11:44 | Discharge Summary ---
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 E coli returned on UCx and olmos sensitive so DC on Amoxil, Labs and Pending Lab Test: Laboratory Tests 04/10/22 06:38: White Blood Count 6.7, Red Blood Count 4.11, Hemoglobin 13.9, Hematocrit 42, Mean Corpuscular Volume 103H, Mean Corpuscular Hemoglobin 34, Mean Corpuscular Hemoglobin Concent 33, Red Cell Distribution Width 12.9, Platelet Count 214, Mean Platelet Volume 9.3, Immature Granulocyte % (Auto) 1, Neutrophils (%) (Auto) 79H, Lymphocytes (%) (Auto) 14, Monocytes (%) (Auto) 5, Eosinophils (%) (Auto) 1, Basophils (%) (Auto) 1, Neutrophils # (Auto) 5.3, Lymphocytes # (Auto) 0.9L, Monocytes # (Auto) 0.3, Eosinophils # (Auto) 0.0, Basophils # (Auto) 0.1, Immature Granulocyte # (Auto) 0.0, Sodium Level 141, Potassium Level 5.1H, Chloride Level 109H, Carbon Dioxide Level 25, Anion Gap 7, Blood Urea Nitrogen 6L, Creatinine 0.69, Estimat Glomerular Filtration Rate 99, BUN/Creatinine Ratio 9, Glucose Level 135H, Calcium Level 8.5, Corrected Calcium 9.1, Total Bilirubin 0.3, Aspartate Amino Transf (AST/SGOT) 18, Alanine Aminotransferase (ALT/SGPT) 15, Alkaline Phosphatase 35L, Total Protein 5.5L, Albumin 3.3 Microbiology 04/08/22 Blood Culture - Preliminary, Resulted No growth 04/08/22 Urine Culture - Final, Complete Escherichia coli Home Meds Active Amoxicillin 500 Mg Tablet 500 Mg PO TID Monurol (Fosfomycin Tromethamine) 3 Gram Pack 3 Gm PO Q48H MIX WITH 4 OUNCES OF COLD WATER Reported Azul Allergy (Fexofenadine HCl) 180 Mg Tablet 180 Mg PO DAILY Estradiol Patch Twice Weekly 0.0375mg/hr (Estradiol) 0.0375 Mg/24 Hour Patch.tdsw 0.075 Mg TD MON Lidocaine 5% Patch (Lidocaine) 5 % Adh..patch 1 Patch TD DAILY PRN APPLY TO RIGHT LOWER BACK AND/OR LOWER ABDOMIN Acyclovir 200 Mg Capsule 200 Mg PO DAILY Hydroxychloroquine Sulfate 200 Mg Tablet 200 Mg PO 1800 Hydrocodone-Acetamin 5-325 mg (Hydrocodone/Acetaminophen) 5 Mg-325 Mg Tablet 1 Tab PO Q8H PRN Sumatriptan Succinate 100 Mg Tablet 100 Mg PO BID PRN Carisoprodol 350 Mg Tablet 350 Mg PO BID Prednisone 10 Mg Tab 10 Mg PO DAILY Ventolin Hfa (Albuterol Sulfate) 18 Gm Hfa.aer.ad 2 Puff PO Q6H PRN Paroxetine HCl 40 Mg Tablet 40 Mg PO DAILY Levothyroxine Sodium 88 Mcg Tablet 88 Mcg PO DAILY Assessment/Pt Instructions PCP 1 week Discharge Planning: <30 minutes discharge planning Discharge Instructions Discharge Diet: No Restrictions Discharge Physical Examination Vital Signs Vital Signs Date Time Temp Pulse Resp B/P (MAP) Pulse Ox O2 Delivery O2 Flow Rate FiO2 04/10/22 11:26 36.0 86 18 122/55 (77) 95 Room Air General Appearance: No Apparent Distress, WD/WN Allergies: Coded Allergies: Sulfa (Sulfonamide Antibiotics) (Verified Allergy, Unknown, 09/13/15) Discharge Summary Date of Admission Apr 08, 2022 at 15:45 Date of Discharge Discharge Date: Apr 10, 2022 Admission Diagnosis Assessment: Sepsis UTI presumed resistant SLE DM MS Plan: IV abx Await UCx Home meds Lovenox HLIVF Ambulate Discharge Diagnosis (1) Sepsis Status: Acute Qualifiers: Qualified Codes: A41.9 - Sepsis, unspecified organism (2) UTI (urinary tract infection) Status: Acute Qualifiers: Qualified Codes: N30.00 - Acute cystitis without hematuria GAIL HUMPHREY DO Apr 10, 2022 11:44
[2022-04-10] MEDS ORDERED: NS IV 500 ML 500 ML IV SCH ×2 (11:45→12:15)
[2022-04-10 13:19] VITALS: BP 122/55
[2022-04-10] MEDS ORDERED: HYDROXYCHLOROQUINE 200 MG (PLAQUENIL) TAB PO SCH (18:00)
== END 2022-04-10 13:10 | disposition home or self-care (01) ==
LOC: EDUNIT# 13:43 → ER 13:45 → 4TH 15:45
PROVIDERS: ADMIT Family Medicine; ATTEND Internal Medicine
DX: A41.9 Sepsis, unspecified organism (principal); N30.00 Acute cystitis without hematuria; E11.9 Type 2 diabetes mellitus without complications; M32.10 Systemic lupus erythematosus, organ or system involvement unspecified; G35 Multiple sclerosis; F17.210 Nicotine dependence, cigarettes, uncomplicated
CPT/HCPCS: 36415; 74176; 80053; 81000; 83605; 83690; 85007; 85025; 85027; 87040; 87077; 87088; 87186; 96361; 96366; 96372; 96375; 96376; G0378

== ENCOUNTER 2022-05-30 10:09 | Emergency (ER) | payer MEDICARE, MEDICAID ==
[~2022-05-30] VITALS: Ht 177.8 cm; Wt 68.0 kg
[~2022-05-30 10:09] MED LIST changes: +AMOX500T2 PO; +ESTR1PAT91 TD; +HYDR200T46 PO; +LIDO700A45 TD; +NF-FOSFPKT PO
[2022-05-30 10:14] VITALS: BP 128/79
[2022-05-30 10:27] LABS: BILIRUBIN,URINE NEGATIVE (NEGATIVE); CLARITY,URINE CLEAR; COLOR,URINE YELLOW; GLUCOSE, URINE (UA) TRACE (NEGATIVE); KETONES,URINE NEGATIVE (NEGATIVE); LEUKOCYTE ESTERASE ,URINE 3+ (NEGATIVE); NITRITE,URINE POSITIVE (NEGATIVE); PH,URINE 7.5 (5-9); PROTEIN,URINE TRACE (NEGATIVE)
[2022-05-30 10:50] LABS: BACTERIA,URINE FEW /HPF; WBC,URINE >100 /HPF
[2022-05-30] MEDS ORDERED: cefTRIAXone 1 GM PRE-MIX 50 ML IV STA (10:59)
[2022-05-30] MEDS ORDERED: LACTATED RINGERS 1,000 ML IV ONE (11:00)
[2022-05-30] MEDS ORDERED: KETOROLAC 30 MG/ML VIAL IVP ONE (11:00)
--- NOTE | 2022-05-30 13:02 | ED General ---
General Chief Complaint: - Reproductive Stated Complaint: BURNING WHEN URINATION - BACK PAIN - WEAKNESS Nursing Triage Note: PT AMBULATE TO ROOM FT1 WITH C/O BURNING WITH URINATION, BLADDER PAIN, AND RIGHT LOWER BACK PAIN SINCE YESTERDAY. PT REPORTS HX OF CHRONIC UTI. PT REPORTS TAKING NORCO AT 0900. Source of Information: Patient Exam Limitations: No Limitations History of Present Illness Date Seen by Provider: May 30, 2022 Time Seen by Provider: 10:12 Initial Comments This 61-year-old woman presents to the emergency room complaining of lower back pain, pelvic pain, and dysuria. She reports history of urinary tract infections. Review of chart reveals admission for UTI and sepsis in March of this year. She reports history of prior structural bladder and urethral problems that predispose her to UTI. Vital signs are stable at this time but she reports subjective fever last night. Patient reports taking hydrocodone and Pyridium without sufficient relief. She is requesting a Toradol injection. Although patient was promptly roomed, she was agitated about her wait time of approximately 40 minutes for urinalysis processing and visit with a physician. She then was seen and plan was communicated to her. I informed her I would order some Toradol and an IV to initiate pain management. Because of the recent history of sepsis, further work-up with labs was warranted. I also ordered bladder scan to ensure that she was not experiencing retention that was contributing to UTIs. I left the patient's bedside and immediately placed orders. I then communicated plan to the nurse. A few minutes later the nurse arrived to the patient's bedside and found she had left AMA. Registration desk later stated the patient was back in the waiting room after smoking a cigarette and demanding her prescription. She was informed by the boarding house cook that her work-up was not complete and IV antibiotics were ordered. Patient did not want to check back into the ER and decided to leave AGAINST MEDICAL ADVICE. Allergies and Home Medications Allergies Coded Allergies: Sulfa (Sulfonamide Antibiotics) (Verified Allergy, Unknown, 09/13/15) Patient Home Medication List Home Medication List Reviewed: Yes Acyclovir (Acyclovir) 200 Mg Capsule, 200 MG PO DAILY, (Reported) Entered as Reported by: RONEY ARTEAGA on 04/09/22 1307 Albuterol Sulfate (Ventolin Hfa) 18 Gm Hfa.aer.ad, 2 PUFF PO Q6H PRN for SHORTNESS OF BREATH, (Reported) Entered as Reported by: RONEY ARTEAGA on 04/03/20 09 Amoxicillin (Amoxicillin) 500 Mg Tablet, 500 MG PO TID Prescribed by: GAIL HUMPHREY on 04/10/22 1142 Carisoprodol (Carisoprodol) 350 Mg Tablet, 350 MG PO BID, (Reported) Entered as Reported by: RONEY ARTEAGA on 04/03/20 09 Estradiol (Estradiol Patch Twice Weekly 0.0375mg/hr) 0.0375 Mg/24 Hour Patch.tdsw, 0.075 MG TD MON, (Reported) Entered as Reported by: RONEY ARTEAGA on 04/09/22 130 Fexofenadine HCl (Azul Allergy) 180 Mg Tablet, 180 MG PO DAILY, (Reported) Entered as Reported by: RONEY ARTEAGA on 04/09/22 130 Fosfomycin Tromethamine (Monurol) 3 Gram Pack, 3 GM PO Q48H Prescribed by: GAIL HUMPHREY on 04/09/22 1152 Hydrocodone/Acetaminophen (Hydrocodone-Acetamin 5-325 mg) 5 Mg-325 Mg Tablet, 1 TAB PO Q8H PRN for PAIN-MODERATE (5-7), (Reported) Entered as Reported by: RONEY ARTEAGA on 04/09/22 130 Hydroxychloroquine Sulfate (Hydroxychloroquine Sulfate) 200 Mg Tablet, 200 MG PO 1800, (Reported) Entered as Reported by: RONEY ARTEAGA on 04/09/22 1307 Levothyroxine Sodium (Levothyroxine Sodium) 88 Mcg Tablet, 88 MCG PO DAILY, (Reported) Entered as Reported by: JU RAE on 10/13/16 1632 Lidocaine (Lidocaine 5% Patch) 5 % Adh..patch, 1 PATCH TD DAILY PRN for PAIN-BREAKTHROUGH, (Reported) Entered as Reported by: RONEY ARTEAGA on 04/09/22 130 Paroxetine HCl (Paroxetine HCl) 40 Mg Tablet, 40 MG PO DAILY, (Reported) Entered as Reported by: RONEY ARTEAGA on 04/03/20950 Prednisone (Prednisone) 10 Mg Tab, 10 MG PO DAILY, (Reported) Entered as Reported by: RONEY ARTEAGA on 04/03/20950 Sumatriptan Succinate (Sumatriptan Succinate) 100 Mg Tablet, 100 MG PO BID PRN for MIGRAINE, (Reported) Entered as Reported by: RONEY ARTEAGA on 04/03/20 0953 Review of Systems Review of Systems Constitutional: see HPI EENTM: no symptoms reported Respiratory: no symptoms reported Cardiovascular: no symptoms reported Gastrointestinal: no symptoms reported Genitourinary: see HPI : No Musculoskeletal: see HPI Skin: no symptoms reported Psychiatric/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: See HPI Hematologic/Lymphatic: No Symptoms Reported Immunological/Allergic: no symptoms reported Past Jdydlsl-Sppiwu-Hopiwt Hx Patient Social History Tobacco Use?: Yes Tobacco type used: Cigarettes Smoking Status: Current Everyday Smoker Smokeless Tobacco Frequency: Never a User Use of E-Cig and/or Vaping dev: No Use of E-Cig and/or Vaping Yrn: Never a User Substance use?: No Alcohol Use?: Yes Alcohol Frequency: Once in a while Pt feels they are or have been: No Immunizations Up To Date Tetanus Booster (TDap): Unknown First/Initial COVID19 Vaccinat: NONE Second COVID19 Vaccination Morales: NONE Third COVID19 Vaccination Date: NONE Seasonal Allergies Seasonal Allergies: No Past Medical History Surgery/Hospitalization HX: 6 BLADDER/ URETHRAL SURGERIES PMH: MS, LUPUS, HYPOTHYROIDISM Surgeries: Yes Bladder Surgery, Hysterectomy Respiratory: Yes COPD Cardiac: No 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 Multiple 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 Genitourinary: Yes (bladder issues related to mesh, chronic abdominal pelvic pain) UTI-Chronic Gastrointestinal: No Musculoskeletal: Yes Chronic Back Pain Endocrine: Yes Hypothyroidsim, Diabetes, Non-Insulin dep, Lupus HEENT: No Cancer: No Psychosocial: No Integumentary: No Blood Disorders: No Family Medical History Cardiovascular disease 19 FATHER Congenital disease G8 SISTER (a muscle disease that is hereditary) Diabetes mellitus 19 FATHER Thyroid disease 19 MOTHER Physical Exam Vital Signs Vital Signs - First Documented 05/30/22 10:14 Temp 36.7 Pulse 91 Resp 17 B/P (MAP) 128/79 (95) O2 Delivery Room Air Capillary Refill : Less Than 3 Seconds Height, Weight, BMI Height: 5'10.00" Weight: 125lbs. oz. 56.788845rg; 21.00 BMI Method:Stated General Appearance: WD/WN, Mild Distress, Thin HEENT: Normal ENT Inspection Neurologic/Psychiatric: Alert, Oriented x3, Other (Mildly agitated) Progress/Results/Core Measures Suspected Sepsis SIRS Temperature: Pulse: 91 Respiratory Rate: 17 Blood Pressure 128 /79 Mean: 95 Results/Orders Lab Results Laboratory Tests Test 05/30/22 10:15 Range/Units Urine Color YELLOW Urine Clarity CLEAR Urine pH 7.5 5-9 Urine Specific [place] 1.010 L 1.016-1.022 Urine Protein TRACE H NEGATIVE Urine Glucose (UA) TRACE H NEGATIVE Urine Ketones NEGATIVE NEGATIVE Urine Nitrite POSITIVE H NEGATIVE Urine Bilirubin NEGATIVE NEGATIVE Urine Urobilinogen 1.0 < = 1.0 MG/DL Urine Leukocyte Esterase 3+ H NEGATIVE Urine RBC (Auto) 1+ H NEGATIVE Urine RBC 5-10 H /HPF Urine WBC >100 H /HPF Urine Crystals NONE /LPF Urine Bacteria FEW H /HPF Urine Casts NONE /LPF Urine Mucus NO /LPF Urine Culture Indicated YES My Orders Orders - MADIE SHELL MD Ua Culture If Indicated (05/30/22 10:12) Urine Culture (05/30/22 10:15) Ketorolac Injection (Toradol Injection) (05/30/22 11:00) Ed Iv/Invasive Line Start (05/30/22 10:57) Vital Signs Adult Sepsis Patie Q15M (05/30/22 10:59) Remove Rings In Anticipation O (05/30/22 10:59) Lactated Ringers (Lr 1000 Ml Iv Solution (05/30/22 11:00) Ceftriaxone 1 Gm Pre-Mix (Rocephin 1 Gm (05/30/22 10:59) Bladder Scan (05/30/22 11:01) Vital Signs/I&O 05/30/22 10:14 Temp 36.7 Pulse 91 Resp 17 B/P (MAP) 128/79 (95) O2 Delivery Room Air Capillary Refill : Less Than 3 Seconds Blood Pressure Mean: 95 Departure Impression Primary Impression: Urinary tract infection Qualified Codes: N39.0 - Urinary tract infection, site not specified Additional Impressions: Dysuria Left against medical advice Disposition: 07 AGAINST MEDICAL ADVICE Condition: Against Medical Advice Departure-Patient Inst. Referrals: ELY DOBBINS MD (PCP) Primary Care Physician MADIE SHELL MD May 30, 2022 13:02
== END 2022-05-30 11:09 | disposition left against medical advice (07) ==
LOC: EDUNIT# 10:09 → ER 10:10
DX: N39.0 Urinary tract infection, site not specified (principal); F17.210 Nicotine dependence, cigarettes, uncomplicated; Z28.310 Unvaccinated for COVID-19
CPT/HCPCS: 81000; 87077; 87088; 87186; 99282

== ENCOUNTER 2022-06-04 13:20 | Outpatient (RCR) | payer MEDICARE, MEDICAID ==
[2022-06-01 16:49] VITALS: BP 118/58
[2022-06-01 16:52] VITALS: BP 118/58
[2022-06-01] MEDS: cefTRIAXone 1 GM IV (PRE-MIX) 50 ML IV SCH (17:29)
[2022-06-02] MEDS: cefTRIAXone 1 GM IV (PRE-MIX) 50 ML IV SCH (15:04)
[2022-06-02 15:38] VITALS: BP 127/76
[2022-06-03] MEDS: cefTRIAXone 1 GM IV (PRE-MIX) 50 ML IV SCH (13:46)
[2022-06-03 13:57] VITALS: BP 112/78
[~2022-06-04] VITALS: Ht 177.8 cm; Wt 70.5 kg
[~2022-06-04 13:20] MED LIST changes: +LEVO-55 PO; -LEVO500T81 PO
[2022-06-04 13:25] VITALS: BP 121/65
[2022-06-04] MEDS: cefTRIAXone 1 GM IV (PRE-MIX) 50 ML IV SCH (13:33)
[2022-06-05] MEDS: cefTRIAXone 1 GM IV (PRE-MIX) 50 ML IV SCH (16:36)
[2022-06-05 16:37] VITALS: BP 107/52
== END 2022-06-30 | disposition home or self-care (01) ==
LOC: SDC 13:20
PROVIDERS: ATTEND Internal Medicine
DX: N30.00 Acute cystitis without hematuria (principal)
CPT/HCPCS: 96365

== ENCOUNTER 2022-06-28 10:10 | Emergency (ER) | payer MEDICARE, MEDICAID ==
[~2022-06-28] VITALS: Ht 175 cm; Wt 70.5 kg
[~2022-06-28 10:10] MED LIST changes: -LEVO-55 PO; +LEVO500T81 PO
[2022-06-28 10:35] LABS: BASOPHILS % (AUTO) 0 % (0-10); EOSINOPHILS % (AUTO) 0 % (0-10); HEMATOCRIT 40 % (35-52); HEMOGLOBIN 13.9 g/dL (11.5-16.0); LYMPHOCYTES # (AUTO) 0.5 10^3/uL (1.0-4.0); LYMPHOCYTES % (AUTO) 7 % (12-44); MEAN CORPUSCULAR HEMOGLOBIN 34 pg (25-34); MEAN CORPUSCULAR HGB CONC 35 g/dL (32-36); MEAN CORPUSCULAR VOLUME 97 fL (80-99); MEAN PLATELET VOLUME 9.2 fL (9.0-12.2); MONOCYTES # (AUTO) 0.6 10^3/uL (0.0-1.0); MONOCYTES % (AUTO) 9 % (0-12); NEUTROPHILS # (AUTO) 5.5 10^3/uL (1.8-7.8); NEUTROPHILS % (AUTO) 82 % (42-75); PLATELET COUNT 189 10^3/uL (130-400); WHITE BLOOD COUNT 6.7 10^3/uL (4.3-11.0)
[2022-06-28 10:43] LABS: BILIRUBIN,URINE NEGATIVE (NEGATIVE); CLARITY,URINE CLEAR; COLOR,URINE YELLOW; GLUCOSE, URINE (UA) NEGATIVE (NEGATIVE); KETONES,URINE 1+ (NEGATIVE); LEUKOCYTE ESTERASE ,URINE NEGATIVE (NEGATIVE); NITRITE,URINE NEGATIVE (NEGATIVE); PH,URINE 8.5 (5-9); PROTEIN,URINE NEGATIVE (NEGATIVE)
[2022-06-28 10:56] LABS: ALBUMIN 3.5 GM/DL (3.2-4.5); POTASSIUM 3.5 MMOL/L (3.6-5.0)
[2022-06-28 10:58] LABS: BACTERIA,URINE NEGATIVE /HPF; WBC,URINE RARE /HPF
[2022-06-28 10:59] LABS: TOTAL PROTEIN 5.9 GM/DL (6.4-8.2)
[2022-06-28 11:00] LABS: SQUAMOUS EPITHELIAL CELL,UR RARE /HPF
[2022-06-28 11:00] LABS: BILIRUBIN,TOTAL 0.5 MG/DL (0.1-1.0)
[2022-06-28 11:02] LABS: CREATININE SERUM 0.76 MG/DL (0.60-1.30)
--- NOTE | 2022-06-28 11:33 | ED GU-Female ---
General Chief Complaint: - Reproductive Stated Complaint: URINARY ISSUES Nursing Triage Note: PT TO RM [facility] WITH CC OF LOW ABD AND BACK PAIN, HX OF CHRONIC UTI'S, ON ABX, WAS IN THE HOSP RECENTLY WITH SEPSIS BECAUSE OF UTI Source: patient Exam Limitations: no limitations History of Present Illness Date Seen by Provider: Jun 28, 2022 Time Seen by Provider: 11:20 Initial Comments 61-year-old female presents the emergency room today via EMS for complaints of lower abdominal pain. She describes this as a burning sensation without radiation. No aggravating or alleviating factor similar symptoms with what sounds like chronic UTIs as well as interstitial cystitis. About a month ago she states she was admitted to the hospital with sepsis because of a UTI. No current fevers or chills. She has nausea without any vomiting. Pain does radiate to her mid lower back. No loss of bowel or bladder control or saddle anesthesia. No changes in her bowels. No vaginal symptoms. Allergies and Home Medications Allergies Coded Allergies: Sulfa (Sulfonamide Antibiotics) (Verified Allergy, Unknown, 09/13/15) Patient Home Medication List Home Medication List Reviewed: Yes Acyclovir (Acyclovir) 200 Mg Capsule, 200 MG PO DAILY, (Reported) Entered as Reported by: RONEY ARTEAGA on 04/09/22 1307 Albuterol Sulfate (Ventolin Hfa) 18 Gm Hfa.aer.ad, 2 PUFF PO Q6H PRN for SHORTNESS OF BREATH, (Reported) Entered as Reported by: RONEY ARTEAGA on 04/03/20 0951 Amoxicillin (Amoxicillin) 500 Mg Tablet, 500 MG PO TID Prescribed by: GAIL HUMPHREY on 04/10/22 1142 Carisoprodol (Carisoprodol) 350 Mg Tablet, 350 MG PO BID, (Reported) Entered as Reported by: RONEY ARTEAGA on 04/03/20 0951 Estradiol (Estradiol Patch Twice Weekly 0.0375mg/hr) 0.0375 Mg/24 Hour Patch.tdsw, 0.075 MG TD MON, (Reported) Entered as Reported by: RONEY ARTEAGA on 04/09/22 1307 Fexofenadine HCl (Azul Allergy) 180 Mg Tablet, 180 MG PO DAILY, (Reported) Entered as Reported by: RONEY ARTEAGA on 04/09/22 1307 Fosfomycin Tromethamine (Monurol) 3 Gram Pack, 3 GM PO Q48H Prescribed by: GAIL HUMPHREY on 04/09/22 1152 Hydrocodone/Acetaminophen (Hydrocodone-Acetamin 5-325 mg) 5 Mg-325 Mg Tablet, 1 TAB PO Q8H PRN for PAIN-MODERATE (5-7), (Reported) Entered as Reported by: RONEY ARTEAGA on 04/09/22 1307 Hydroxychloroquine Sulfate (Hydroxychloroquine Sulfate) 200 Mg Tablet, 200 MG PO 1800, (Reported) Entered as Reported by: RONEY ARTEAGA on 04/09/22 1307 Levothyroxine Sodium (Levothyroxine Sodium) 88 Mcg Tablet, 88 MCG PO DAILY, (Reported) Entered as Reported by: JU RAE on 10/13/16 1632 Lidocaine (Lidocaine 5% Patch) 5 % Adh..patch, 1 PATCH TD DAILY PRN for PAIN- BREAKTHROUGH, (Reported) Entered as Reported by: RONEY ARTEAGA on 04/09/22 1307 Paroxetine HCl (Paroxetine HCl) 40 Mg Tablet, 40 MG PO DAILY, (Reported) Entered as Reported by: RONEY ARTEAGA on 04/03/20 0951 Prednisone (Prednisone) 10 Mg Tab, 10 MG PO DAILY, (Reported) Entered as Reported by: RONEY ARTEAGA on 04/03/20 0951 Sumatriptan Succinate (Sumatriptan Succinate) 100 Mg Tablet, 100 MG PO BID PRN for MIGRAINE, (Reported) Entered as Reported by: RONEY ARTEAGA on 04/03/20 0953 Review of Systems Review of Systems Constitutional: no symptoms reported EENTM: no symptoms reported Respiratory: no symptoms reported Cardiovascular: no symptoms reported Gastrointestinal: abdominal pain, nausea Genitourinary: burning Musculoskeletal: no symptoms reported Skin: no symptoms reported Psychiatric/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: No Symptoms Reported Endocrine: No Symptoms Reported Hematologic/Lymphatic: No Symptoms Reported Past Hxnbdog-Gwxvpj-Oetmpq Hx Patient Social History Tobacco Use?: Yes Tobacco type used: Cigarettes Smoking Status: Current Everyday Smoker Substance use?: No Alcohol Use?: Yes Alcohol type: Wine Alcohol Frequency: Once in a while Immunizations Up To Date Tetanus Booster (TDap): Unknown First/Initial COVID19 Vaccinat: NONE Second COVID19 Vaccination Morales: NONE Third COVID19 Vaccination Date: NONE Seasonal Allergies Seasonal Allergies: No Past Medical History Surgery/Hospitalization HX: 6 BLADDER/ URETHRAL SURGERIES PMH: MS, LUPUS, HYPOTHYROIDISM Surgeries: Yes Bladder Surgery, Hysterectomy Respiratory: Yes COPD Cardiac: No 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 Multiple 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 Genitourinary: Yes (bladder issues related to mesh, chronic abdominal pelvic pain) UTI-Chronic Gastrointestinal: No Musculoskeletal: Yes Chronic Back Pain Endocrine: Yes Hypothyroidsim, Diabetes, Non-Insulin dep, Lupus HEENT: No Cancer: No Psychosocial: No Integumentary: No Blood Disorders: No Family Medical History Cardiovascular disease 19 FATHER Congenital disease G8 SISTER (a muscle disease that is hereditary) Diabetes mellitus 19 FATHER Thyroid disease 19 MOTHER Physical Exam Vital Signs Vital Signs - First Documented 06/28/22 06/28/22 10:19 11:45 Temp 36.6 Pulse 73 Resp 22 B/P (MAP) 115/99 (104) Pulse Ox 98 O2 Delivery Room Air Capillary Refill : Height, Weight, BMI Height: 5'10.00" Weight: 125lbs. oz. 56.018385iu; 23.00 BMI Method:Stated General Appearance: WD/WN, no apparent distress HEENT: normal ENT inspection, pharynx normal Neck: non-tender, supple, normal inspection Cardiovascular: regular rate, rhythm, no edema, no gallop, no JVD, no murmur Respiratory: chest non-tender, lungs clear, normal breath sounds, no respiratory distress, no accessory muscle use Gastrointestinal: normal bowel sounds, no organomegaly, tenderness (Palpation of suprapubic region with voluntary guarding. No rebound tenderness. No ventriculomegaly. Skin changes) Extremities: normal range of motion, non-tender, normal inspection, no pedal edema, no calf tenderness Skin: normal color, warm/dry Progress/Results/Core Measures Suspected Sepsis SIRS Temperature: Pulse: 73 Respiratory Rate: 22 Laboratory Tests 06/28/22 10:25: White Blood Count 6.7 Blood Pressure 115 /99 Mean: 104 Laboratory Tests 06/28/22 10:25: Creatinine 0.76, Platelet Count 189, Total Bilirubin 0.5 Results/Orders Lab Results Laboratory Tests Test 06/28/22 10:25 06/28/22 10:34 Range/Units White Blood Count 6.7 4.3-11.0 10^3/uL Red Blood Count 4.09 3.80-5.11 10^6/uL Hemoglobin 13.9 11.5-16.0 g/dL Hematocrit 40 35-52 % Mean Corpuscular Volume 97 80-99 fL Mean Corpuscular Hemoglobin 34 25-34 pg Mean Corpuscular Hemoglobin Concent 35 32-36 g/dL Red Cell Distribution Width 12.5 10.0-14.5 % Platelet Count 189 130-400 10^3/uL Mean Platelet Volume 9.2 9.0-12.2 fL Immature Granulocyte % (Auto) 1 % Neutrophils (%) (Auto) 82 H 42-75 % Lymphocytes (%) (Auto) 7 L 12-44 % Monocytes (%) (Auto) 9 0-12 % Eosinophils (%) (Auto) 0 0-10 % Basophils (%) (Auto) 0 0-10 % Neutrophils # (Auto) 5.5 1.8-7.8 10^3/uL Lymphocytes # (Auto) 0.5 L 1.0-4.0 10^3/uL Monocytes # (Auto) 0.6 0.0-1.0 10^3/uL Eosinophils # (Auto) 0.0 0.0-0.3 10^3/uL Basophils # (Auto) 0.0 0.0-0.1 10^3/uL Immature Granulocyte # (Auto) 0.1 0.0-0.1 10^3/uL Neutrophils % (Manual) 88 % Lymphocytes % (Manual) 5 % Monocytes % (Manual) 7 % Blood Morphology Comment NORMAL Sodium Level 129 L 135-145 MMOL/L Potassium Level 3.5 L 3.6-5.0 MMOL/L Chloride Level 97 L 98-107 MMOL/L Carbon Dioxide Level 21 21-32 MMOL/L Anion Gap 11 5-14 MMOL/L Blood Urea Nitrogen 8 7-18 MG/DL Creatinine 0.76 0.60-1.30 MG/DL Estimat Glomerular Filtration Rate 90 BUN/Creatinine Ratio 11 Glucose Level 82 70-105 MG/DL Calcium Level 9.0 8.5-10.1 MG/DL Corrected Calcium 9.4 8.5-10.1 MG/DL Total Bilirubin 0.5 0.1-1.0 MG/DL Aspartate Amino Transf (AST/SGOT) 27 5-34 U/L Alanine Aminotransferase (ALT/SGPT) 17 0-55 U/L Alkaline Phosphatase 37 L 40-136 U/L Total Protein 5.9 L 6.4-8.2 GM/DL Albumin 3.5 3.2-4.5 GM/DL Lipase 17 8-78 U/L Urine Color YELLOW Urine Clarity CLEAR Urine pH 8.5 5-[address] 1.010 L 1.016-1.022 Urine Protein NEGATIVE NEGATIVE Urine Glucose (UA) NEGATIVE NEGATIVE Urine Ketones 1+ H NEGATIVE Urine Nitrite NEGATIVE NEGATIVE Urine Bilirubin NEGATIVE NEGATIVE Urine Urobilinogen 0.2 < = 1.0 MG/DL Urine Leukocyte Esterase NEGATIVE NEGATIVE Urine RBC (Auto) NEGATIVE NEGATIVE Urine RBC NONE /HPF Urine WBC RARE /HPF Urine Squamous Epithelial Cells RARE /HPF Urine Crystals NONE /LPF Urine Bacteria NEGATIVE /HPF Urine Casts NONE /LPF Urine Mucus NEGATIVE /LPF Urine Culture Indicated NO My Orders Orders - DIAMOND PÉREZ DO Cbc With Automated Diff (06/28/22 10:21) Comprehensive Metabolic Panel (06/28/22 10:21) Lipase (06/28/22 10:21) Ua Culture If Indicated (06/28/22 10:21) Manual Differential (06/28/22 10:25) Potassium Chloride (Tablet) (K Dur Table (06/28/22 11:45) Acetaminophen Tablet (Tylenol Tablet) (06/28/22 11:45) Vital Signs/I&O Capillary Refill : Blood Pressure Mean: 104 Departure Communication (Admissions) Patient is hemodynamically stable. She has what appears to be chronic abdominal pain at this time. No evidence for urinary tract infection or other emergent medical condition at this time. Slightly hypokalemic and hyponatremic, likely secondary to decreased p.o. intake over the past couple days. Potassium is repleted orally. Advised to follow-up with her primary doctor in 24 to 48 hours should her symptoms persist or return to the emergency department for any severe concerns. She states understanding. Questions were sought and answered she is discharged in stable condition. Impression Primary Impression: Chronic abdominal pain Disposition: 01 HOME, SELF-CARE Condition: Stable Departure-Patient Inst. Referrals: ELY DOBBINS MD (PCP/Family) Primary Care Physician Patient Instructions: Chronic Pain Add. Discharge Instructions: You are seen in the emergency department today for what sounds to be chronic abdominal pain. As discussed no other medical condition is identified. Your sodium and potassium are slightly low consistent with your decreased oral intake over the last day or so. Getting oral potassium pills. Recommend you follow-up with your primary doctor in the next 24 to 48 hours for reevaluation and discussion of what to do further for your chronic abdominal pain. This may be a recurrence or flare of interstitial cystitis. There is no evidence of urinary tract infection at this time. Return to the emergency department for any severe concerns. All discharge instructions reviewed with patient and/or family. Voiced understanding. DIAMOND PÉREZ DO Jun 28, 2022 11:33
[2022-06-28 11:44] LABS: LYMPHOCYTES % (MANUAL) 5 %; MONOCYTES % (MANUAL) 7 %; NEUTROPHILS % (MANUAL) 88 %; RBC MORPH NORMAL
[2022-06-28 11:45] VITALS: BP 120/97
[2022-06-28] MEDS ORDERED: KCL 20 MEQ TAB (K-DUR) PO ONE (11:45)
[2022-06-28] MEDS ORDERED: ACETAMINOPHEN 500 MG TAB (TYLENOL) PO ONE (11:45)
== END 2022-06-28 11:45 | disposition home or self-care (01) ==
LOC: EDUNIT# 10:10 → ER 10:13
DX: G89.29 Other chronic pain (principal); R10.30 Lower abdominal pain, unspecified; E87.6 Hypokalemia; E87.1 Hypo-osmolality and hyponatremia; F17.210 Nicotine dependence, cigarettes, uncomplicated; Z87.440 Personal history of urinary (tract) infections; Z28.310 Unvaccinated for COVID-19
CPT/HCPCS: 36415; 80053; 81000; 83690; 85007; 85027

== ENCOUNTER 2022-09-17 12:23 | Emergency (ER) | payer MEDICARE, MEDICAID ==
[~2022-09-17] VITALS: Ht 176 cm; Wt 68.0 kg
[~2022-09-17 12:23] MED LIST changes: +LEVO-55 PO; -LEVO500T81 PO
[2022-09-17 12:31] VITALS: BP 125/72
--- NOTE | 2022-09-17 12:51 | ED Cough/URI ---
General Chief Complaint: Cough/Cold/Flu Symptoms Stated Complaint: COUGH | FEVER Nursing Triage Note: PT AMBULATORY TO ER, REPORTS SOB, COUGH, SINUS PAIN ONSET 2 WEEKS AGO. UNSURE IF RUNNING A FEVER. Source: patient Exam Limitations: no limitations History of Present Illness Date Seen by Provider: Sep 17, 2022 Time Seen by Provider: 12:30 Initial Comments Patient is a 62 yo F who presents to the ED with cough and nasal congestion for the last two weeks. She states she had a low grade fever when the symptoms started but has not had one for several days. Both of her granddaughters are being evaluated for URI symptoms today in the ED as well. Patient denies N/V/D. No medications today for the symptoms. Allergies and Home Medications Allergies Coded Allergies: Sulfa (Sulfonamide Antibiotics) (Verified Allergy, Unknown, 09/13/15) Patient Home Medication List Home Medication List Reviewed: Yes Acyclovir (Acyclovir) 200 Mg Capsule, 200 MG PO DAILY, (Reported) Entered as Reported by: RONEY ARTEAGA on 04/09/22 1307 Albuterol Sulfate (Ventolin Hfa) 18 Gm Hfa.aer.ad, 2 PUFF PO Q6H PRN for SHORTNESS OF BREATH, (Reported) Entered as Reported by: RONEY ARTEAGA on 04/03/20 0951 Amoxicillin (Amoxicillin) 500 Mg Tablet, 500 MG PO TID Prescribed by: GAIL HUMPHREY on 04/10/22 1142 Carisoprodol (Carisoprodol) 350 Mg Tablet, 350 MG PO BID, (Reported) Entered as Reported by: RONEY ARTEAGA on 04/03/20 0951 Estradiol (Estradiol Patch Twice Weekly 0.0375mg/hr) 0.0375 Mg/24 Hour Patch.tdsw, 0.075 MG TD MON, (Reported) Entered as Reported by: RONEY ARTEAGA on 04/09/22 1307 Fexofenadine HCl (Azul Allergy) 180 Mg Tablet, 180 MG PO DAILY, (Reported) Entered as Reported by: RONEY ARTEAGA on 04/09/22 1307 Fosfomycin Tromethamine (Monurol) 3 Gram Pack, 3 GM PO Q48H Prescribed by: GAIL HUMPHREY on 04/09/22 1152 Hydrocodone/Acetaminophen (Hydrocodone-Acetamin 5-325 mg) 5 Mg-325 Mg Tablet, 1 TAB PO Q8H PRN for PAIN-MODERATE (5-7), (Reported) Entered as Reported by: RONEY ARTEAGA on 04/09/22 1307 Hydroxychloroquine Sulfate (Hydroxychloroquine Sulfate) 200 Mg Tablet, 200 MG PO 1800, (Reported) Entered as Reported by: RONEY ARTEAGA on 04/09/22 1307 Levothyroxine Sodium (Levothyroxine Sodium) 88 Mcg Tablet, 88 MCG PO DAILY, (Reported) Entered as Reported by: JU RAE on 10/13/16 1632 Lidocaine (Lidocaine 5% Patch) 5 % Adh..patch, 1 PATCH TD DAILY PRN for PAIN- BREAKTHROUGH, (Reported) Entered as Reported by: RONEY ARTEAGA on 04/09/22 1307 Paroxetine HCl (Paroxetine HCl) 40 Mg Tablet, 40 MG PO DAILY, (Reported) Entered as Reported by: RONEY ARTEAGA on 04/03/20 0951 Prednisone (Prednisone) 10 Mg Tab, 10 MG PO DAILY, (Reported) Entered as Reported by: RONEY ARTEAGA on 04/03/20 0951 Sumatriptan Succinate (Sumatriptan Succinate) 100 Mg Tablet, 100 MG PO BID PRN for MIGRAINE, (Reported) Entered as Reported by: RONEY ARTEAGA on 04/03/20 0953 Review of Systems Review of Systems Constitutional: no symptoms reported EENTM: see HPI, nose congestion Respiratory: see HPI, cough Cardiovascular: no symptoms reported Gastrointestinal: no symptoms reported Genitourinary: no symptoms reported Past Benpnei-Smmzen-Pdawlx Hx Immunizations Up To Date Tetanus Booster (TDap): Unknown First/Initial COVID19 Vaccinat: NONE Second COVID19 Vaccination Morales: NONE Third COVID19 Vaccination Date: NONE Seasonal Allergies Seasonal Allergies: No Past Medical History Surgery/Hospitalization HX: 6 BLADDER/ URETHRAL SURGERIES PMH: MS, LUPUS, HYPOTHYROIDISM Surgeries: Yes Bladder Surgery, Hysterectomy Respiratory: Yes COPD Cardiac: No 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 Multiple 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 Genitourinary: Yes (bladder issues related to mesh, chronic abdominal pelvic pain) UTI-Chronic Gastrointestinal: No Musculoskeletal: Yes Chronic Back Pain Endocrine: Yes Hypothyroidsim, Diabetes, Non-Insulin dep, Lupus HEENT: No Cancer: No Psychosocial: No Integumentary: No Blood Disorders: No Family Medical History Cardiovascular disease 19 FATHER Congenital disease G8 SISTER (a muscle disease that is hereditary) Diabetes mellitus 19 FATHER Thyroid disease 19 MOTHER Physical Exam Vital Signs - First Documented 09/17/22 12:31 Temp 37.0 Pulse 85 Resp 18 B/P (MAP) 125/72 (89) Pulse Ox 95 O2 Delivery Room Air Capillary Refill : Height: 5'10.00" Weight: 125lbs. oz. 56.354075ik; 21.00 BMI Method:Stated General Appearance: WD/WN, no apparent distress HEENT: PERRL/EOMI, normal ENT inspection, TMs normal, pharynx normal Neck: non-tender, full range of motion, supple, normal inspection Respiratory: chest non-tender, lungs clear, normal breath sounds, no respiratory distress, no accessory muscle use Cardiovascular: regular rate, rhythm Gastrointestinal: non tender, soft Neurologic/Psychiatric: no motor/sensory deficits, alert, normal mood/affect, oriented x 3 Progress/Results/Core Measures Suspected Sepsis SIRS Temperature: Pulse: 85 Respiratory Rate: 18 Blood Pressure 125 /72 Mean: 89 Results/Orders Lab Results Laboratory Tests Test 09/17/22 12:53 Range/Units Influenza Type A (RT-PCR) Not Detected Not Detecte Influenza Type B (RT-PCR) Not Detected Not Detecte SARS-CoV-2 RNA (RT-PCR) Not Detected Not Detecte My Orders Orders - EDWIGE BURGOS APRN Covid 19 Inhouse Test (09/17/22 12:47) Influenza A And B By Pcr (09/17/22 12:47) Isolation Central Supply Req (09/17/22 12:47) Vital Signs/I&O 09/17/22 12:31 Temp 37.0 Pulse 85 Resp 18 B/P (MAP) 125/72 (89) Pulse Ox 95 O2 Delivery Room Air Capillary Refill : Blood Pressure Mean: 89 Progress Note : Progress Note Patient is nontoxic and well hydrated on exam. No adventitious lung sounds or increased work of breathing noted. Vital signs are reassuring. Viral etiology of symptoms likely especially given other members in the household have similar symptoms recently. No obvious nidus of bacterial exam noted on exam. COVID and flu tests negative. Will d/c home with recs for supportive care and follow-up with PCP. Return precautions for urgent symptomology discussed. Patient verbalized understanding. Departure Impression Primary Impression: Viral URI Disposition: 01 HOME, SELF-CARE Condition: Stable Departure-Patient Inst. Decision time for Depature: 12:35 Referrals: ELY DOBBINS MD (PCP/Family) Primary Care Physician Patient Instructions: Viral Upper Respiratory Infection, Adult (DC) EDWIGE BURGOS [employer] Sep 17, 2022 12:51
== END 2022-09-17 13:50 | disposition home or self-care (01) ==
LOC: EDUNIT# 12:23 → ER 12:24
DX: J06.9 Acute upper respiratory infection, unspecified (principal); Z20.822 Contact with and (suspected) exposure to COVID-19; Z28.310 Unvaccinated for COVID-19
CPT/HCPCS: 87636; 99283

== ENCOUNTER 2023-01-03 14:03 | Emergency (ER) | payer MEDICARE, MEDICAID ==
[~2023-01-03] VITALS: Ht 177.8 cm; Wt 65.7 kg
[~2023-01-03 14:03] MED LIST changes: +PARO-124 PO; -PARO-49 PO
[2023-01-03 15:17] LABS: BILIRUBIN,URINE NEGATIVE (NEGATIVE); CLARITY,URINE CLOUDY; COLOR,URINE ORANGE; GLUCOSE, URINE (UA) NEGATIVE (NEGATIVE); KETONES,URINE NEGATIVE (NEGATIVE); LEUKOCYTE ESTERASE ,URINE TRACE (NEGATIVE); NITRITE,URINE NEGATIVE (NEGATIVE); PH,URINE 6.5 (5-9); PROTEIN,URINE TRACE (NEGATIVE)
[2023-01-03 15:27] LABS: BACTERIA,URINE TRACE /HPF
--- NOTE | 2023-01-03 15:29 | ED General ---
General Chief Complaint: Cough/Cold/Flu Symptoms Stated Complaint: SINUS HEADACHE | CHEST CONGESTION | Nursing Triage Note: PT AMB TO TRIAGE WITH COMPLAINT OF SINUS HEADACHE, NECK PAIN AND CHEST CONGESTION. STATES STARTED FIVE DAYS AGO. Source of Information: Patient Exam Limitations: No Limitations History of Present Illness Date Seen by Provider: Jan 03, 2023 Time Seen by Provider: 15:05 Initial Comments 62-year-old female presents with complaints of nasal congestion, sinus headache, neck pain, cough. Reports that she was sick with flu-like symptoms 2 weeks ago, that has improved, but the other symptoms mentioned have remained. Reports she had thick yellow, brown sputum. She reports some crackles in her chest. Reports chest pain, but states it only occurs when she is coughing. She also reports suprapubic pain, burning with urination, and discomfort in her bladder when urinating. She denies fevers, shortness of air, nausea, vomiting, diarrhea. Last bowel movement was today. Past medical history includes lupus, MS, hypothyroidism, and interstitial cystitis. She has had 6 prior surgeries due to an infected bladder mesh. Allergies and Home Medications Allergies Coded Allergies: Sulfa (Sulfonamide Antibiotics) (Verified Allergy, Unknown, 09/13/15) Patient Home Medication List Home Medication List Reviewed: Yes Acyclovir (Acyclovir) 200 Mg Capsule, 200 MG PO DAILY, (Reported) Entered as Reported by: RONEY ARTEAGA on 04/09/22 1307 Albuterol Sulfate (Ventolin Hfa) 18 Gm Hfa.aer.ad, 2 PUFF PO Q6H PRN for SHORTNESS OF BREATH, (Reported) Entered as Reported by: RONEY ARTEAGA on 04/03/20 0951 Amoxicillin (Amoxicillin) 500 Mg Tablet, 500 MG PO TID Prescribed by: GAIL HUMPHREY on 04/10/22 1142 Amoxicillin/Potassium Clav (Amox Tr-K Clv 875-125 mg Tab) 875 Mg-125 Mg Tablet, 1 EACH PO BID Prescribed by: Stacie Rabago on 01/03/23 1623 Carisoprodol (Carisoprodol) 350 Mg Tablet, 350 MG PO BID, (Reported) Entered as Reported by: RONEY ARTEAGA on 04/03/20 0951 Estradiol (Estradiol Patch Twice Weekly 0.0375mg/hr) 0.0375 Mg/24 Hour Patch.tdsw, 0.075 MG TD MON, (Reported) Entered as Reported by: RONEY ARTEAGA on 04/09/22 1307 Fexofenadine HCl (Azul Allergy) 180 Mg Tablet, 180 MG PO DAILY, (Reported) Entered as Reported by: RONEY ARTEAGA on 04/09/22 1307 Fosfomycin Tromethamine (Monurol) 3 Gram Pack, 3 GM PO Q48H Prescribed by: GAIL HUMPHREY on 04/09/22 1152 Hydrocodone/Acetaminophen (Hydrocodone-Acetamin 5-325 mg) 5 Mg-325 Mg Tablet, 1 TAB PO Q8H PRN for PAIN-MODERATE (5-7), (Reported) Entered as Reported by: RONEY ARTEAGA on 04/09/22 1307 Hydroxychloroquine Sulfate (Hydroxychloroquine Sulfate) 200 Mg Tablet, 200 MG PO 1800, (Reported) Entered as Reported by: RONEY ARTEAGA on 04/09/22 1307 Levothyroxine Sodium (Levothyroxine Sodium) 88 Mcg Tablet, 88 MCG PO DAILY, (Reported) Entered as Reported by: JU RAE on 10/13/16 1632 Lidocaine (Lidocaine 5% Patch) 5 % Adh..patch, 1 PATCH TD DAILY PRN for PAIN- BREAKTHROUGH, (Reported) Entered as Reported by: RONEY ARTEAGA on 04/09/22 1307 Paroxetine HCl (Paroxetine HCl) 40 Mg Tablet, 40 MG PO DAILY, (Reported) Entered as Reported by: RONEY ARTEAGA on 04/03/20 0951 Prednisone (Prednisone) 10 Mg Tab, 10 MG PO DAILY, (Reported) Entered as Reported by: RONEY ARTEAGA on 04/03/20 0951 Sumatriptan Succinate (Sumatriptan Succinate) 100 Mg Tablet, 100 MG PO BID PRN for MIGRAINE, (Reported) Entered as Reported by: RONEY ARTEAGA on 04/03/20 0953 Review of Systems Review of Systems Constitutional: see HPI Past Onsmgud-Uwimls-Agwjim Hx Patient Social History Tobacco Use?: Yes Smoking Status: Current Everyday Smoker Use of E-Cig and/or Vaping dev: No Substance use?: No Alcohol Use?: No Pt feels they are or have been: No Immunizations Up To Date Tetanus Booster (TDap): Unknown First/Initial COVID19 Vaccinat: NONE Second COVID19 Vaccination Morales: NONE Third COVID19 Vaccination Date: NONE Seasonal Allergies Seasonal Allergies: No Past Medical History Surgery/Hospitalization HX: 6 BLADDER/ URETHRAL SURGERIES PMH: MS, LUPUS, HYPOTHYROIDISM Surgeries: Yes Bladder Surgery, Hysterectomy Respiratory: Yes COPD Cardiac: No 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 Genitourinary: Yes (bladder issues related to mesh, chronic abdominal pelvic pain) UTI-Chronic Gastrointestinal: No Musculoskeletal: Yes Chronic Back Pain Endocrine: Yes Hypothyroidsim, Diabetes, Non-Insulin dep, Lupus HEENT: No Cancer: No Psychosocial: No Integumentary: No Blood Disorders: No Family Medical History Cardiovascular disease 19 FATHER Congenital disease G8 SISTER (a muscle disease that is hereditary) Diabetes mellitus 19 FATHER Thyroid disease 19 MOTHER Physical Exam Vital Signs Vital Signs - First Documented 01/03/23 14:13 Temp 36.6 Pulse 76 Resp 16 B/P (MAP) 103/70 (81) Pulse Ox 97 O2 Delivery Room Air Capillary Refill : Less Than 3 Seconds Height, Weight, BMI Height: 5'10.00" Weight: 125lbs. oz. 56.735889nw; 20.00 BMI Method:Stated General Appearance: No Apparent Distress, WD/WN HEENT: TMs Normal, Pharynx Normal, Other (Turbinates swollen) Neck: Supple Respiratory: No Accessory Muscle Use, No Respiratory Distress, Other (Noisy breath sounds right lower) Cardiovascular: Regular Rate, Rhythm, No Edema, No Gallop, No JVD Extremity: Normal Inspection, Normal Range of Motion Neurologic/Psychiatric: Alert, Oriented x3, Normal Mood/Affect Skin: Normal Color, Warm/Dry Progress/Results/Core Measures Suspected Sepsis SIRS Temperature: Pulse: 76 Respiratory Rate: 16 Blood Pressure 103 /70 Mean: 81 Results/Orders Lab Results Laboratory Tests Test 01/03/23 14:58 01/03/23 15:01 Range/Units Urine Color ORANGE Urine Clarity CLOUDY Urine pH 6.5 5-9 Urine Specific [place] 1.015 L 1.016-1.022 Urine Protein TRACE H NEGATIVE Urine Glucose (UA) NEGATIVE NEGATIVE Urine Ketones NEGATIVE NEGATIVE Urine Nitrite NEGATIVE NEGATIVE Urine Bilirubin NEGATIVE NEGATIVE Urine Urobilinogen 0.2 < = 1.0 MG/DL Urine Leukocyte Esterase TRACE H NEGATIVE Urine RBC (Auto) NEGATIVE NEGATIVE Urine RBC NONE /HPF Urine WBC 2-5 /HPF Urine Squamous Epithelial Cells 2-5 /HPF Urine Crystals NONE /LPF Urine Bacteria TRACE /HPF Urine Casts NONE /LPF Urine Mucus NEGATIVE /LPF Urine Culture Indicated NO Influenza Type A (RT-PCR) Not Detected Not Detecte Influenza Type B (RT-PCR) Not Detected Not Detecte SARS-CoV-2 RNA (RT-PCR) Not Detected Not Detecte My Orders Orders - STACIE RABAGO APRN Covid 19 Inhouse Test (01/03/23 14:57) Influenza A And B By Pcr (01/03/23 14:57) Ua Culture If Indicated (01/03/23 14:57) Chest 1 View, Ap/Pa Only (01/03/23 15:30) Vital Signs/I&O 01/03/23 01/03/23 14:13 16:27 Temp 36.6 Pulse 76 78 Resp 16 16 B/P (MAP) 103/70 (81) 110/69 Pulse Ox 97 97 O2 Delivery Room Air Room Air Capillary Refill : Less Than 3 Seconds Blood Pressure Mean: 81 Progress Note #1: Time: 15:29 Progress Note Patient seen and evaluated, resting comfortably in recliner, no acute distress. Concern for sinus infection, pneumonia, urinary tract infection, and interstitia l cystitis. Work-up initiated including COVID, flu, RSV swab, urinalysis, and chest x-ray. Progress Note #2: Time: 16:21 Progress Note Labs and x-ray reviewed. Covid and flu negative. UA positive for trace l eukocytes, negative for nitrites, WBC 2-5, trace bacteria, and 2-5 squamous epithelia cells. Likely a contaminated specimen, symptoms are likely from interstitial cystitis rather than UTI. Chest x-ray negative for acute findings. Will discharge patient with antibiotic for rhinosinusitis. Discharge instructions and return precautions provided. Diagnostic Imaging Diagonstic Imaging: Xray Plain Films/CT/US/NM/MRI: chest Comments [facility]. [place], [place] NAME: JERMAINE BOWERSERENA Mojica MED REC#: [id number] PT STATUS: DEP ER : 1960 PHYSICIAN: STACIE RABAGO APRN ADMIT DATE: 01/03/23/ER Signed Date of Exam:01/03/23 CHEST 1 VIEW, AP/PA ONLY INDICATION: Chest congestion. TECHNIQUE: Frontal chest obtained at 03:49 p.m. and compared to 01/24/2021. FINDINGS: Heart and mediastinal silhouette are normal in appearance. The lungs are clear. There is no pneumothorax or pleural fluid. IMPRESSION: Negative chest. Dictated by: Dictated on workstation # [id number] Dict: 01/03/23 1550 Trans: 01/03/232202 [id number] Interpreted by: INDERJIT BELL MD Electronically signed by: INDERJIT BELL MD 01/03/232202 Departure Impression Primary Impression: Rhinosinusitis Disposition: 01 HOME, SELF-CARE Condition: Stable Departure-Patient Inst. Decision time for Depature: 16:22 Referrals: ELY DOBBINS MD (PCP/Family) Primary Care Physician Patient Instructions: Sinusitis, Adult (DC) Add. Discharge Instructions: Take antibiotic as directed, complete full course of antibiotic even if you begin to feel better. Follow-up with primary care provider. Monitor for worsening of abdominal pain, fever, lower back pain, or any other new, concerning, or worsening symptoms. All discharge instructions reviewed with patient and/or family. Voiced understanding. Scripts Amoxicillin/Potassium Clav (Amox Tr-K Clv 875-125 mg Tab) 875 Mg-125 Mg Tablet 1 EACH PO BID for 7 Days, #14 TAB 0 Refills Prov: STACIE RABAGO APRN 01/03/23 STACIE RABAGO APRN Jan 03, 2023 15:29
--- NOTE | 2023-01-03 15:53 | Diagnostic Imaging Report ---
INDICATION: Chest congestion. TECHNIQUE: Frontal chest obtained at 03:49 p.m. and compared to 01/24/2021. FINDINGS: Heart and mediastinal silhouette are normal in appearance. The lungs are clear. There is no pneumothorax or pleural fluid. IMPRESSION: Negative chest. Dictated by: Dictated on workstation # [id number]
[2023-01-03] MEDS ORDERED: AMOX1TAB12 PO (16:23)
[2023-01-03 16:27] VITALS: BP 110/69
== END 2023-01-03 16:27 | disposition home or self-care (01) ==
LOC: EDUNIT# 14:03 → ER 14:05
DX: J32.9 Chronic sinusitis, unspecified (principal); F17.200 Nicotine dependence, unspecified, uncomplicated; Z20.822 Contact with and (suspected) exposure to COVID-19; Z88.1 Allergy status to other antibiotic agents
CPT/HCPCS: 71045; 81000; 87636

== ENCOUNTER 2023-01-13 13:40 | Emergency (ER) | payer MEDICARE, MEDICAID ==
[~2023-01-13] VITALS: Ht 177 cm; Wt 68.5 kg
[~2023-01-13 13:40] MED LIST changes: +AMOX1TAB12 PO
[2023-01-13] MEDS ORDERED: NS IV 1000 ML 1,000 ML IV STA (13:56)
[2023-01-13 13:58] LABS: BILIRUBIN,URINE NEGATIVE (NEGATIVE); CLARITY,URINE CLOUDY; COLOR,URINE YELLOW; GLUCOSE, URINE (UA) NEGATIVE (NEGATIVE); KETONES,URINE NEGATIVE (NEGATIVE); LEUKOCYTE ESTERASE ,URINE 3+ (NEGATIVE); NITRITE,URINE POSITIVE (NEGATIVE); PROTEIN,URINE 1+ (NEGATIVE)
--- NOTE | 2023-01-13 13:59 | ED GU-Female ---
General Chief Complaint: - Reproductive Stated Complaint: BLADDER INFECTION Nursing Triage Note: pt states having low abd pain, "i have uti's all the time." hx of issues with bladder mesh, nausea, pain started yesterday, feels flushed Source: patient Exam Limitations: no limitations History of Present Illness Date Seen by Provider: Jan 13, 2023 Time Seen by Provider: 13:57 Initial Comments Patient is a 62-year-old female with a history of urinary tract infections, bladder and urethra surgery 14 years ago who presents ED with dysuria, increased urine frequency, suprapubic pain and right flank pain. Symptoms started yesterday. She states she is urinating every hour. She reports a constant pressure in her lower abdomen. She states this feels very similar to her previous urinary tract infections. She started feeling nauseous and feverish today with. History of complications secondary to a bladder mesh that required surgery resulting in pelvic wall damage. Patient has been taken Azo. She denies headache, dizziness, sore throat, chest pain, cough, shortness of breath, lower extremity weakness, falls. She is able to ambulate. History of hysterectomy Allergies and Home Medications Allergies Coded Allergies: Sulfa (Sulfonamide Antibiotics) (Verified Allergy, Unknown, 09/13/15) Patient Home Medication List Home Medication List Reviewed: Yes Acyclovir (Acyclovir) 200 Mg Capsule, 200 MG PO DAILY, (Reported) Entered as Reported by: RONEY ARTEAGA on 04/09/22 1307 Albuterol Sulfate (Ventolin Hfa) 18 Gm Hfa.aer.ad, 2 PUFF PO Q6H PRN for SHORTNESS OF BREATH, (Reported) Entered as Reported by: RONEY ARTEAGA on 04/03/20 0951 Amoxicillin (Amoxicillin) 500 Mg Tablet, 500 MG PO TID Prescribed by: GAIL HUMPHREY on 04/10/22 1142 Amoxicillin/Potassium Clav (Amox Tr-K Clv 875-125 mg Tab) 875 Mg-125 Mg Tablet, 1 EACH PO BID Prescribed by: Stacie Love on 01/03/23 1623 Carisoprodol (Carisoprodol) 350 Mg Tablet, 350 MG PO BID, (Reported) Entered as Reported by: RONEY ARTEAGA on 04/03/20 0951 Cephalexin (Cephalexin) 500 Mg Tablet, 500 MG PO BID Prescribed by: PIA GOETZ on 01/13/23 1512 Estradiol (Estradiol Patch Twice Weekly 0.0375mg/hr) 0.0375 Mg/24 Hour Patch.tdsw, 0.075 MG TD MON, (Reported) Entered as Reported by: RONEY ARTEAGA on 04/09/22 1307 Fexofenadine HCl (Azul Allergy) 180 Mg Tablet, 180 MG PO DAILY, (Reported) Entered as Reported by: RONEY ARTEAGA on 04/09/22 1307 Fosfomycin Tromethamine (Monurol) 3 Gram Pack, 3 GM PO Q48H Prescribed by: GAIL HUMPHREY on 04/09/22 1152 Hydrocodone/Acetaminophen (Hydrocodone-Acetamin 5-325 mg) 5 Mg-325 Mg Tablet, 1 TAB PO Q8H PRN for PAIN-MODERATE (5-7), (Reported) Entered as Reported by: RONEY ARTEAGA on 04/09/22 1307 Hydroxychloroquine Sulfate (Hydroxychloroquine Sulfate) 200 Mg Tablet, 200 MG PO 1800, (Reported) Entered as Reported by: RONEY ARTEAGA on 04/09/22 1307 Levothyroxine Sodium (Levothyroxine Sodium) 88 Mcg Tablet, 88 MCG PO DAILY, (Reported) Entered as Reported by: JU RAE on 10/13/16 1632 Lidocaine (Lidocaine 5% Patch) 5 % Adh..patch, 1 PATCH TD DAILY PRN for PAIN- BREAKTHROUGH, (Reported) Entered as Reported by: RONEY ARTEAGA on 04/09/22 1307 Paroxetine HCl (Paroxetine HCl) 40 Mg Tablet, 40 MG PO DAILY, (Reported) Entered as Reported by: RONEY ARTEAGA on 04/03/20 0951 Phenazopyridine HCl (Pyridium) 200 Mg Tablet, 1 TAB PO TID Prescribed by: PIA GOETZ on 01/13/23 1458 Prednisone (Prednisone) 10 Mg Tab, 10 MG PO DAILY, (Reported) Entered as Reported by: RONEY ARTEAGA on 04/03/20 0951 Sumatriptan Succinate (Sumatriptan Succinate) 100 Mg Tablet, 100 MG PO BID PRN for MIGRAINE, (Reported) Entered as Reported by: RONEY ARTEAGA on 04/03/20 0953 Discontinued Medications Cefdinir (Cefdinir) 300 Mg Capsule, 300 MG PO BID Prescribed by: PIA GOETZ on 01/13/23 8468 Review of Systems Review of Systems Constitutional: No chills, No diaphoresis, No fever, No malaise, No weakness EENTM: No blurred vision, No mouth pain, No mouth swelling, No throat swelling Respiratory: No dyspnea on exertion Cardiovascular: No chest pain Gastrointestinal: abdominal pain; No diarrhea; nausea; No vomiting Genitourinary: burning, dysuria, frequency Musculoskeletal: No back pain, No joint pain Skin: No change in color, No change in hair/nails All Other Systemes Reviewed Negative Unless Noted: Yes Past Leqfnzp-Ugrqtp-Eofiji Hx Immunizations Up To Date Tetanus Booster (TDap): Unknown First/Initial COVID19 Vaccinat: NONE Second COVID19 Vaccination Morales: NONE Third COVID19 Vaccination Date: NONE Seasonal Allergies Seasonal Allergies: No Past Medical History Surgery/Hospitalization HX: 6 BLADDER/ URETHRAL SURGERIES PMH: MS, LUPUS, HYPOTHYROIDISM Surgeries: Yes Bladder Surgery, Hysterectomy Respiratory: Yes COPD Cardiac: No 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 Genitourinary: Yes (bladder issues related to mesh, chronic abdominal pelvic pain) UTI-Chronic Gastrointestinal: No Musculoskeletal: Yes Chronic Back Pain Endocrine: Yes Hypothyroidsim, Diabetes, Non-Insulin dep, Lupus HEENT: No Cancer: No Psychosocial: No Integumentary: No Blood Disorders: No Family Medical History Cardiovascular disease 19 FATHER Congenital disease G8 SISTER (a muscle disease that is hereditary) Diabetes mellitus 19 FATHER Thyroid disease 19 MOTHER Physical Exam Vital Signs Vital Signs - First Documented 01/13/23 01/13/23 13:52 15:15 Temp 36.3 Pulse 96 Resp 20 B/P (MAP) 104/53 (70) Pulse Ox 97 O2 Delivery Room Air Capillary Refill : Height, Weight, BMI Height: 5'10.00" Weight: 125lbs. oz. [id number]; 21.00 BMI Method:Stated General Appearance: WD/WN, no apparent distress HEENT: PERRL/EOMI, normal ENT inspection, TMs normal, pharynx normal Neck: non-tender, full range of motion, supple, normal inspection Cardiovascular: regular rate, rhythm, no edema, no gallop, no JVD Respiratory: chest non-tender, lungs clear, normal breath sounds, no respiratory distress Gastrointestinal: normal bowel sounds, soft, no organomegaly, tenderness (Suprapubic tenderness) Pelvic: normal external exam Back: normal inspection, no CVA tenderness, no vertebral tenderness Extremities: normal range of motion, non-tender, normal inspection, no pedal edema 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, no motor/sensory deficits, alert, normal mood/affect, oriented x 3 Skin: normal color, warm/dry Progress/Results/Core Measures Suspected Sepsis SIRS Temperature: Pulse: 96 Respiratory Rate: 20 Laboratory Tests 01/13/23 14:00: White Blood Count 16.4H Blood Pressure 104 /53 Mean: 70 Laboratory Tests 01/13/23 14:00: Creatinine 0.70, Platelet Count 303, Total Bilirubin 0.5 Results/Orders Lab Results Laboratory Tests Test 01/13/23 13:45 01/13/23 14:00 Range/Units Urine Color YELLOW Urine Clarity CLOUDY Urine pH 8.0 5-9 Urine Specific [place] 1.015 L 1.016-1.022 Urine Protein 1+ H NEGATIVE Urine Glucose (UA) NEGATIVE NEGATIVE Urine Ketones NEGATIVE NEGATIVE Urine Nitrite POSITIVE H NEGATIVE Urine Bilirubin NEGATIVE NEGATIVE Urine Urobilinogen 0.2 < = 1.0 MG/DL Urine Leukocyte Esterase 3+ H NEGATIVE Urine RBC (Auto) 3+ H NEGATIVE Urine RBC 50-100 H /HPF Urine WBC 5-10 H /HPF Urine Squamous Epithelial Cells 2-5 /HPF Urine Crystals NONE /LPF Urine Bacteria LARGE H /HPF Urine Casts NONE /LPF Urine Mucus NEGATIVE /LPF Urine Culture Indicated YES White Blood Count 16.4 H 4.3-11.0 10^3/uL Red Blood Count 4.55 3.80-5.11 10^6/uL Hemoglobin 15.4 11.5-16.0 g/dL Hematocrit 45 35-52 % Mean Corpuscular Volume 99 80-99 fL Mean Corpuscular Hemoglobin 34 25-34 pg Mean Corpuscular Hemoglobin Concent 34 32-36 g/dL Red Cell Distribution Width 12.7 10.0-14.5 % Platelet Count 303 130-400 10^3/uL Mean Platelet Volume 8.9 L 9.0-12.2 fL Immature Granulocyte % (Auto) 0 % Neutrophils (%) (Auto) 74 42-75 % Lymphocytes (%) (Auto) 19 12-44 % Monocytes (%) (Auto) 6 0-12 % Eosinophils (%) (Auto) 1 0-10 % Basophils (%) (Auto) 0 0-10 % Neutrophils # (Auto) 12.2 H 1.8-7.8 10^3/uL Lymphocytes # (Auto) 3.1 1.0-4.0 10^3/uL Monocytes # (Auto) 0.9 0.0-1.0 10^3/uL Eosinophils # (Auto) 0.1 0.0-0.3 10^3/uL Basophils # (Auto) 0.1 0.0-0.1 10^3/uL Immature Granulocyte # (Auto) 0.1 0.0-0.1 10^3/uL Neutrophils % (Manual) 70 % Lymphocytes % (Manual) 24 % Monocytes % (Manual) 4 % Eosinophils % (Manual) 1 % Band Neutrophils 1 % Sodium Level 138 135-145 MMOL/L Potassium Level 3.8 3.6-5.0 MMOL/L Chloride Level 106 98-107 MMOL/L Carbon Dioxide Level 23 21-32 MMOL/L Anion Gap 9 5-14 MMOL/L Blood Urea Nitrogen 5 L 7-18 MG/DL Creatinine 0.70 0.60-1.30 MG/DL Estimat Glomerular Filtration Rate 98 BUN/Creatinine Ratio 7 Glucose Level 75 70-105 MG/DL Calcium Level 8.9 8.5-10.1 MG/DL Corrected Calcium 9.1 8.5-10.1 MG/DL Total Bilirubin 0.5 0.1-1.0 MG/DL Aspartate Amino Transf (AST/SGOT) 18 5-34 U/L Alanine Aminotransferase (ALT/SGPT) 23 0-55 U/L Alkaline Phosphatase 51 40-136 U/L Total Protein 6.5 6.4-8.2 GM/DL Albumin 3.7 3.2-4.5 GM/DL Lipase 39 8-78 U/L My Orders Orders - SNEHAL SIMPSON Ua Culture If Indicated (01/13/23 13:48) Cbc With Automated Diff (01/13/23 13:56) Comprehensive Metabolic Panel (01/13/23 13:56) Ns Iv 1000 Ml (Sodium Chloride 0.9%) (01/13/23 13:56) Ondansetron Injection (Zofran Injectio (01/13/23 14:00) Lipase (01/13/23 13:56) Manual Differential (01/13/23 14:00) Urine Culture (01/13/23 13:45) Ceftriaxone 1 Gm Pre-Mix (Rocephin 1 Gm (01/13/23 14:16) Ketorolac Injection (Toradol Injection) (01/13/23 14:45) Phenazopyridine Tablet (Pyridium Tablet) (01/13/23 14:45) Medications Given in ED Current Medications Medications Dose Ordered Sig/Jens Route Start Time Stop Time Status Last Admin Dose Admin Ketorolac Tromethamine 30 mg ONCE ONCE IVP 01/13/23 14:45 01/13/23 14:46 DC 01/13/23 14:55 30 MG Ondansetron HCl 4 mg ONCE ONCE IVP 01/13/23 14:00 01/13/23 14:01 DC 01/13/23 14:02 4 MG Phenazopyridine HCl 100 mg ONCE ONCE PO 01/13/23 14:45 01/13/23 14:46 DC 01/13/23 14:55 100 MG Vital Signs/I&O 01/13/23 01/13/23 13:52 15:15 Temp 36.3 Pulse 96 76 Resp 20 18 B/P (MAP) 104/53 (70) 126/56 Pulse Ox 97 O2 Delivery Room Air Capillary Refill : Blood Pressure Mean: 70 Departure Communication (PCP) Reviewed previous ER visits, H&P's, lab testing, cultures. History of chronic UTIs. History of complications secondary to a bladder mass that resulted in surgery with chronic frequent urinary tract infections since the surgery. Patient with urinary symptoms, pain with urination, feverish and weakness today. Differential diagnosis of cystitis, pyelonephritis, viral syndrome. Urinalysis, CBC, CMP, liter of fluid with Zofran. Patient heart rate was 85. She was afebrile. CBC showed leukocytosis at 16.4. Normal chemistry. Urinalysis concerning for UTI. History of E. coli, Morganella. Susceptible to Rocephin which she was given a dose of Rocephin here. Improvement of heart rate. She continued to remain afebrile. She does not appear toxic. She was given Toradol and Pyridium here. Improvement of pain. Will discharge with Pyridium for 2 days, keflex. Recommend recheck with urinalysis in 4 to 5 days with primary care physician. If worsening symptoms such as fever, vomiting, worsening abdominal pain and urinary symptoms to return back to ED. Impression Primary Impression: UTI (urinary tract infection) Disposition: HOME, SELF-CARE Condition: Stable Departure-Patient Inst. Decision time for Depature: 14:57 Referrals: ELY DOBBINS MD (PCP/Family) Primary Care Physician Patient Instructions: Urinary Tract Infection, Adult (DC) Scripts Cephalexin (Cephalexin) 500 Mg Tablet 500 MG PO BID for 7 Days, #14 TAB Prov: SNEHAL SIMPSON 01/13/23 Phenazopyridine HCl (Pyridium) 200 Mg Tablet 1 TAB PO TID for 2 Days, #6 TAB Prov: SNEHAL SIMPSON 01/13/23 SNEHAL SIMPSON Jan 13, 2023 13:59
[2023-01-13] MEDS ORDERED: ONDANSETRON 4 MG/2 ML (SDV) Z0FRAN IVP ONE (14:00)
[2023-01-13 14:08] LABS: BASOPHILS # (AUTO) 0.1 10^3/uL (0.0-0.1); BASOPHILS % (AUTO) 0 % (0-10); EOSINOPHILS # (AUTO) 0.1 10^3/uL (0.0-0.3); EOSINOPHILS % (AUTO) 1 % (0-10); HEMATOCRIT 45 % (35-52); HEMOGLOBIN 15.4 g/dL (11.5-16.0); LYMPHOCYTES # (AUTO) 3.1 10^3/uL (1.0-4.0); LYMPHOCYTES % (AUTO) 19 % (12-44); MEAN CORPUSCULAR HEMOGLOBIN 34 pg (25-34); MEAN CORPUSCULAR HGB CONC 34 g/dL (32-36); MEAN CORPUSCULAR VOLUME 99 fL (80-99); MEAN PLATELET VOLUME 8.9 fL (9.0-12.2); MONOCYTES # (AUTO) 0.9 10^3/uL (0.0-1.0); MONOCYTES % (AUTO) 6 % (0-12); NEUTROPHILS # (AUTO) 12.2 10^3/uL (1.8-7.8); NEUTROPHILS % (AUTO) 74 % (42-75); PLATELET COUNT 303 10^3/uL (130-400); WHITE BLOOD COUNT 16.4 10^3/uL (4.3-11.0)
[2023-01-13 14:10] LABS: RBC,URINE 50-100 /HPF
[2023-01-13 14:11] LABS: BACTERIA,URINE LARGE /HPF
[2023-01-13] MEDS ORDERED: cefTRIAXone 1 GM PRE-MIX 50 ML IV STA (14:16)
[2023-01-13 14:19] LABS: ALBUMIN 3.7 GM/DL (3.2-4.5); POTASSIUM 3.8 MMOL/L (3.6-5.0)
[2023-01-13 14:20] LABS: CALCIUM 8.9 MG/DL (8.5-10.1)
[2023-01-13 14:21] LABS: TOTAL PROTEIN 6.5 GM/DL (6.4-8.2)
[2023-01-13 14:23] LABS: BILIRUBIN,TOTAL 0.5 MG/DL (0.1-1.0)
[2023-01-13 14:25] LABS: CREATININE SERUM 0.7 MG/DL (0.60-1.30)
[2023-01-13 14:32] LABS: BAND NEUTROPHILS 1 %; EOSINOPHILS % (MANUAL) 1 %; LYMPHOCYTES % (MANUAL) 24 %; MONOCYTES % (MANUAL) 4 %; NEUTROPHILS % (MANUAL) 70 %
[2023-01-13] MEDS ORDERED: PHENAZOPYRIDINE 100 MG (PYRIDIUM) TABLET PO ONE (14:45)
[2023-01-13] MEDS ORDERED: KETOROLAC 30 MG/ML VIAL IVP ONE (14:45)
[2023-01-13] MEDS ORDERED: PHEN-640 PO (14:58)
[2023-01-13] MEDS ORDERED: CEFD300C3 PO (14:58)
[2023-01-13] MEDS ORDERED: CEPH500T PO (15:12)
[2023-01-13 15:15] VITALS: BP 126/56
[2023-01-15] MEDS ORDERED: NITR100C PO (12:46)
== END 2023-01-13 15:15 | disposition home or self-care (01) ==
LOC: EDUNIT# 13:40 → ER 13:42
DX: N39.0 Urinary tract infection, site not specified (principal); Z88.1 Allergy status to other antibiotic agents; Z28.310 Unvaccinated for COVID-19
CPT/HCPCS: 36415; 80053; 81000; 83690; 85007; 85027; 87077; 87088; 87186; 99283

== ENCOUNTER 2023-02-02 14:41 | Emergency (ER) | payer MEDICARE, MEDICAID ==
[~2023-02-02] VITALS: Ht 177 cm; Wt 65.0 kg
[~2023-02-02 14:41] MED LIST changes: +NITR100C PO
[2023-02-02] MEDS ORDERED: fentaNYL INJ 100 MCG/2 ML AMP IVP STA (14:57)
[2023-02-02] MEDS ORDERED: NS IV 1000 ML 1,000 ML IV STA (14:57)
[2023-02-02] MEDS ORDERED: cefTRIAXone PRE-MIX 50 ML IV STA (14:59)
--- NOTE | 2023-02-02 15:03 | ED Abdominal Pain ---
General Chief Complaint: Abdominal/GI Problems Stated Complaint: LOWER BACK PAIN | KIDNEY STONE | UTI Nursing Triage Note: LOWER RIGHT ABD PAIN FOR SEVERAL WEEKS. THINKS SHE IS PASSING A STONE. HX OF UTI'S FOR 15 YEARS. Source of Information: Patient Exam Limitations: No Limitations History of Present Illness Date Seen by Provider: Feb 02, 2023 Time Seen by Provider: 15:01 Initial Comments Patient is a 62-year-old female with a history of chronic urinary tract infections, bladder urethral reconstruction who presents to the ED with suprapubic discomfort and pain since yesterday. She states it feels like her bladder is distended. Right flank pain for the past week. Described as sharp a nd constant. Has been taking hydrocodone. Patient states that she had a urinary tract infection back in mid December and was given antibiotics with improvement. Similar type pain today. Chills and sweating last night with nausea. Denies vomiting or diarrhea, fever, chest pain, cough or shortness of breath. Allergies and Home Medications Allergies Coded Allergies: Sulfa (Sulfonamide Antibiotics) (Verified Allergy, Unknown, 09/13/15) Patient Home Medication List Home Medication List Reviewed: Yes Acyclovir (Acyclovir) 200 Mg Capsule, 200 MG PO DAILY, (Reported) Entered as Reported by: RONEY ARTEAGA on 04/09/22 1307 Albuterol Sulfate (Ventolin Hfa) 18 Gm Hfa.aer.ad, 2 PUFF PO Q6H PRN for SHORTNESS OF BREATH, (Reported) Entered as Reported by: RONEY ARTEAGA on 04/03/20 0951 Amoxicillin (Amoxicillin) 500 Mg Tablet, 500 MG PO TID Prescribed by: GAIL HUMPHREY on 04/10/22 1142 Amoxicillin/Potassium Clav (Amox Tr-K Clv 875-125 mg Tab) 875 Mg-125 Mg Tablet, 1 EACH PO BID Prescribed by: Stacie Love on 01/03/23 1623 Carisoprodol (Carisoprodol) 350 Mg Tablet, 350 MG PO BID, (Reported) Entered as Reported by: RONEY ARTEAGA on 04/03/20 0951 Cefdinir (Cefdinir) 300 Mg Capsule, 300 MG PO BID Prescribed by: PIA GOETZ on 02/02/23 1643 Last Action: New Order Cephalexin (Cephalexin) 500 Mg Tablet, 500 MG PO BID Prescribed by: PIA GOTEZ on 01/13/23 1512 Estradiol (Estradiol Patch Twice Weekly 0.0375mg/hr) 0.0375 Mg/24 Hour Patch.tdsw, 0.075 MG TD MON, (Reported) Entered as Reported by: RONEY ARTEAGA on 04/09/22 1307 Fexofenadine HCl (Azul Allergy) 180 Mg Tablet, 180 MG PO DAILY, (Reported) Entered as Reported by: RONYE ARTEAGA on 04/09/22 1307 Fosfomycin Tromethamine (Monurol) 3 Gram Pack, 3 GM PO Q48H Prescribed by: GAIL HUMPHREY on 04/09/22 1152 Hydrocodone/Acetaminophen (Hydrocodone-Acetamin 5-325 mg) 5 Mg-325 Mg Tablet, 1 TAB PO Q8H PRN for PAIN-MODERATE (5-7), (Reported) Entered as Reported by: RONEY ARTEAGA on 04/09/22 1307 Hydroxychloroquine Sulfate (Hydroxychloroquine Sulfate) 200 Mg Tablet, 200 MG PO 1800, (Reported) Entered as Reported by: RONEY ARTEAGA on 04/09/22 1307 Levothyroxine Sodium (Levothyroxine Sodium) 88 Mcg Tablet, 88 MCG PO DAILY, (Reported) Entered as Reported by: JU RAE on 10/13/16 1632 Lidocaine (Lidocaine 5% Patch) 5 % Adh..patch, 1 PATCH TD DAILY PRN for PAIN- BREAKTHROUGH, (Reported) Entered as Reported by: RONEY ARTEAGA on 04/09/22 1307 Nitrofurantoin Macrocrystal (Nitrofurantoin) 100 Mg Capsule, 100 MG PO BID Prescribed by: PIA GOETZ on 01/15/23 1246 Paroxetine HCl (Paroxetine HCl) 40 Mg Tablet, 40 MG PO DAILY, (Reported) Entered as Reported by: RONEY ARTEAGA on 04/03/20 09 Phenazopyridine HCl (Pyridium) 200 Mg Tablet, 1 TAB PO TID Prescribed by: PIA GOETZ on 01/13/23 1458 Prednisone (Prednisone) 10 Mg Tab, 10 MG PO DAILY, (Reported) Entered as Reported by: RONEY ARTEAGA on 04/03/20 0951 Sumatriptan Succinate (Sumatriptan Succinate) 100 Mg Tablet, 100 MG PO BID PRN for MIGRAINE, (Reported) Entered as Reported by: RONEY ARTEAGA on 04/03/20 0953 Review of Systems Review of Systems Constitutional: No chills, No diaphoresis, No malaise, No weakness EENTM: No Blurred Vision, No Eye Pain Respiratory: Denies Cough, Denies Shortness of Air, Denies Other Cardiovascular: Denies Chest Pain, Denies Edema Gastrointestinal: Abdominal Pain; Denies Diarrhea; Nausea; Denies Vomiting Genitourinary: Denies Burning, Denies Discharge; Frequency, Flank Pain Musculoskeletal: back pain; No joint pain All Other Systems Reviewed Negative Unless Noted: Yes Past Xgumvci-Pxjygc-Zmnsaf Hx Patient Social History Tobacco Use?: Yes Smoking Status: Current Everyday Smoker Substance use?: No Alcohol Use?: Yes Alcohol Frequency: Rarely Immunizations Up To Date Tetanus Booster (TDap): Unknown First/Initial COVID19 Vaccinat: NONE Second COVID19 Vaccination Morales: NONE Third COVID19 Vaccination Date: NONE Seasonal Allergies Seasonal Allergies: No Past Medical History Surgery/Hospitalization HX: 6 BLADDER/ URETHRAL SURGERIES, BLADDER MESH ISSUES PMH: MS, LUPUS, HYPOTHYROIDISM Surgeries: Yes Bladder Surgery, Hysterectomy Respiratory: Yes COPD Cardiac: No 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 Genitourinary: Yes (bladder issues related to mesh, chronic abdominal pelvic pain) UTI-Chronic Gastrointestinal: No Musculoskeletal: Yes Chronic Back Pain Endocrine: Yes Hypothyroidsim, Diabetes, Non-Insulin dep, Lupus HEENT: No Cancer: No Psychosocial: No Integumentary: No Blood Disorders: No Family Medical History Cardiovascular disease 19 FATHER Congenital disease G8 SISTER (a muscle disease that is hereditary) Diabetes mellitus 19 FATHER Thyroid disease 19 MOTHER Physical Exam Vital Signs Vital Signs - First Documented 02/02/23 14:45 Temp 36.4 Pulse 81 Resp 16 B/P (MAP) 132/55 (80) Pulse Ox 16 O2 Delivery Room Air Capillary Refill : Less Than 3 Seconds Height/Weight/BMI Height: 5'10.00" Weight: 125lbs. oz. 56.423863cf; 20.00 BMI Method:Stated General Appearance: WD/WN, no apparent distress HEENT: PERRL/EOMI, normal ENT inspection, TMs normal, pharynx normal Neck: non-tender, full range of motion, supple, normal inspection Respiratory: chest non-tender, lungs clear, normal breath sounds, no respiratory distress, no accessory muscle use Cardiovascular: regular rate, rhythm, no edema, no gallop, no JVD Gastrointestinal: normal bowel sounds, soft, no organomegaly, no pulsatile mass, tenderness (Suprapubic tenderness) Extremities: normal range of motion, normal inspection, no pedal edema, no calf tenderness Back: CVA tenderness (R) 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, no motor/sensory deficits, alert, normal mood/affect, oriented x 3 Skin: normal color, warm/dry Progress/Results/Core Measures Results/Orders Lab Results Laboratory Tests Test 02/02/23 15:00 Range/Units White Blood Count 16.3 H 4.3-11.0 10^3/uL Red Blood Count 4.75 3.80-5.11 10^6/uL Hemoglobin 16.1 H 11.5-16.0 g/dL Hematocrit 47 35-52 % Mean Corpuscular Volume 99 80-99 fL Mean Corpuscular Hemoglobin 34 25-34 pg Mean Corpuscular Hemoglobin Concent 34 32-36 g/dL Red Cell Distribution Width 12.3 10.0-14.5 % Platelet Count 329 130-400 10^3/uL Mean Platelet Volume 8.8 L 9.0-12.2 fL Immature Granulocyte % (Auto) 1 % Neutrophils (%) (Auto) 67 42-75 % Lymphocytes (%) (Auto) 25 12-44 % Monocytes (%) (Auto) 6 0-12 % Eosinophils (%) (Auto) 1 0-10 % Basophils (%) (Auto) 1 0-10 % Neutrophils # (Auto) 10.9 H 1.8-7.8 10^3/uL Lymphocytes # (Auto) 4.0 1.0-4.0 10^3/uL Monocytes # (Auto) 1.0 0.0-1.0 10^3/uL Eosinophils # (Auto) 0.1 0.0-0.3 10^3/uL Basophils # (Auto) 0.1 0.0-0.1 10^3/uL Immature Granulocyte # (Auto) 0.1 0.0-0.1 10^3/uL Neutrophils % (Manual) 66 % Lymphocytes % (Manual) 23 % Monocytes % (Manual) 6 % Eosinophils % (Manual) 2 % Band Neutrophils 3 % Platelet Estimate NORMAL Blood Morphology Comment NORMAL Urine Color YELLOW Urine Clarity CLEAR Urine pH 7.5 5-9 Urine Specific [place] <=1.005 1.016-1.022 Urine Protein NEGATIVE NEGATIVE Urine Glucose (UA) NEGATIVE NEGATIVE Urine Ketones NEGATIVE NEGATIVE Urine Nitrite NEGATIVE NEGATIVE Urine Bilirubin NEGATIVE NEGATIVE Urine Urobilinogen 0.2 < = 1.0 MG/DL Urine Leukocyte Esterase 3+ H NEGATIVE Urine RBC (Auto) TRACE-I H NEGATIVE Urine RBC 0-2 /HPF Urine WBC 25-50 H /HPF Urine Squamous Epithelial Cells 2-5 /HPF Urine Crystals NONE /LPF Urine Bacteria MODERATE H /HPF Urine Casts NONE /LPF Urine Mucus NEGATIVE /LPF Urine Culture Indicated YES Sodium Level 138 135-145 MMOL/L Potassium Level 3.6 3.6-5.0 MMOL/L Chloride Level 102 98-107 MMOL/L Carbon Dioxide Level 25 21-32 MMOL/L Anion Gap 11 5-14 MMOL/L Blood Urea Nitrogen 4 L 7-18 MG/DL Creatinine 0.73 0.60-1.30 MG/DL Estimat Glomerular Filtration Rate 94 BUN/Creatinine Ratio 5 Glucose Level 79 70-105 MG/DL Calcium Level 9.0 8.5-10.1 MG/DL Corrected Calcium 9.1 8.5-10.1 MG/DL Total Bilirubin 0.4 0.1-1.0 MG/DL Aspartate Amino Transf (AST/SGOT) 19 5-34 U/L Alanine Aminotransferase (ALT/SGPT) 22 0-55 U/L Alkaline Phosphatase 53 40-136 U/L Total Protein 6.2 L 6.4-8.2 GM/DL Albumin 3.9 3.2-4.5 GM/DL Lipase 26 8-78 U/L My Orders Orders - SNEHAL SIMPSON Urinalysis (02/02/23 14:44) Cbc With Automated Diff (02/02/23 14:57) Comprehensive Metabolic Panel (02/02/23 14:57) Lipase (02/02/23 14:57) Ns Iv 1000 Ml (Sodium Chloride 0.9%) (02/02/23 14:57) Fentanyl Inj (Sublimaze Injection) (02/02/23 14:57) Ceftriaxone 1 Gm Pre-Mix (Rocephin 1 Gm (02/02/23 14:59) Manual Differential (02/02/23 15:00) Ct Abdomen/Pelvis W (02/02/23 15:26) Urine Culture (02/02/23 15:00) Iohexol Injection (Omnipaque 350 Mg/Ml 1 (02/02/23 16:00) Received Contrast (Hold Metformin- Contr (02/02/23 16:00) Ns (Ivpb) (Sodium Chloride 0.9% Ivpb Bag (02/02/23 16:00) Medications Given in ED Current Medications Medications Dose Ordered Sig/Jens Route Start Time Stop Time Status Last Admin Dose Admin Iohexol 100 ml ONCE ONCE IV 02/02/23 16:00 02/02/23 16:01 DC 02/02/23 15:55 73 ML Sodium Chloride 100 ml ONCE ONCE IV 02/02/23 16:00 02/02/23 16:01 DC 02/02/23 15:55 80 ML Vital Signs/I&O 02/02/23 14:45 Temp 36.4 Pulse 81 Resp 16 B/P (MAP) 132/55 (80) Pulse Ox 16 O2 Delivery Room Air Blood Pressure Mean: 80 Departure Communication (PCP) Reviewed previous ER visits, H&P, lab testing. Chronic history of urinary tract infection. History of urethra and bladder reconstruction. Patient with suprapubic discomfort, bloating stanchion and right flank pain for the past week. Chills last night. Patient afebrile and nontachycardic. Patient urinalysis was positive for infection. Due to right flank pain concerning for nephrolithiasis, pyelonephritis. CBC, CMP, lipase was ordered. CBC showed white blood count of 16. Chemistry grossly unremarkable. Due to location of pain CT abdomen pelvis was ordered which was negative for any ureterolithiasis, nephrolithiasis, perinephric stranding suggesting pyelonephritis, kidney abscess, abdominal abscess. Did note moderate constipation. She is currently on hydrocodone daily. Discussed oral laxatives, high-fiber diet, fluids. This may be result of the bloating, distention. She does have urinary symptoms which I suspect she does have a urinary tract infection. Will discharge with cefdinir for 10 days. Last urinalysis back in mid December positive for E. coli susceptible to cephalosporins. Recommend outpatient follow-up with your primary care physician for recheck in 5 to 6 days of urinalysis. Provided urology outpatient follow-up at [facility]. Return precaution were discussed. Patient does not appear septic. Patient received a liter of fluid and a dose of fentanyl for pain. Impression Primary Impression: UTI (urinary tract infection) Additional Impression: Constipation Disposition: HOME, SELF-CARE Condition: Stable Departure-Patient Inst. Decision time for Depature: 16:43 Referrals: ELY DOBBINS MD (PCP/Family) Primary Care Physician Patient Instructions: Urinary Tract Infection, Adult ED Add. Discharge Instructions: Recommend laxatives, staying hydrated, high-fiber diet. Take antibiotics as prescribed All discharge instructions reviewed with patient and/or family. Voiced understanding. Scripts Ketorolac Tromethamine (Ketorolac Tromethamine) 10 Mg Tablet 10 MG PO TID, #15 TAB Prov: SNEHAL SIMPSON 02/02/23 Cefdinir (Cefdinir) 300 Mg Capsule 300 MG PO BID for 10 Days, #20 CAP Prov: SNEHAL SIMPSON 02/02/23 SNEHAL SIMPSON Feb 02, 2023 15:03
[2023-02-02 15:10] LABS: BASOPHILS # (AUTO) 0.1 10^3/uL (0.0-0.1); BASOPHILS % (AUTO) 1 % (0-10); EOSINOPHILS # (AUTO) 0.1 10^3/uL (0.0-0.3); EOSINOPHILS % (AUTO) 1 % (0-10); HEMATOCRIT 47 % (35-52); HEMOGLOBIN 16.1 g/dL (11.5-16.0); LYMPHOCYTES % (AUTO) 25 % (12-44); MEAN CORPUSCULAR HEMOGLOBIN 34 pg (25-34); MEAN CORPUSCULAR HGB CONC 34 g/dL (32-36); MEAN CORPUSCULAR VOLUME 99 fL (80-99); MEAN PLATELET VOLUME 8.8 fL (9.0-12.2); MONOCYTES % (AUTO) 6 % (0-12); NEUTROPHILS # (AUTO) 10.9 10^3/uL (1.8-7.8); NEUTROPHILS % (AUTO) 67 % (42-75); PLATELET COUNT 329 10^3/uL (130-400); WHITE BLOOD COUNT 16.3 10^3/uL (4.3-11.0)
[2023-02-02 15:11] LABS: BILIRUBIN,URINE NEGATIVE (NEGATIVE); CLARITY,URINE CLEAR; COLOR,URINE YELLOW; GLUCOSE, URINE (UA) NEGATIVE (NEGATIVE); KETONES,URINE NEGATIVE (NEGATIVE); LEUKOCYTE ESTERASE ,URINE 3+ (NEGATIVE); NITRITE,URINE NEGATIVE (NEGATIVE); PH,URINE 7.5 (5-9); PROTEIN,URINE NEGATIVE (NEGATIVE)
[2023-02-02 15:24] LABS: ALBUMIN 3.9 GM/DL (3.2-4.5); POTASSIUM 3.6 MMOL/L (3.6-5.0)
[2023-02-02 15:27] LABS: BACTERIA,URINE MODERATE /HPF; RBC,URINE 0-2 /HPF; TOTAL PROTEIN 6.2 GM/DL (6.4-8.2); WBC,URINE 25-50 /HPF
[2023-02-02 15:28] LABS: BILIRUBIN,TOTAL 0.4 MG/DL (0.1-1.0)
[2023-02-02 15:30] LABS: CREATININE SERUM 0.73 MG/DL (0.60-1.30)
[2023-02-02 15:43] LABS: BAND NEUTROPHILS 3 %; NEUTROPHILS % (MANUAL) 66 %
[2023-02-02 15:44] LABS: EOSINOPHILS % (MANUAL) 2 %; LYMPHOCYTES % (MANUAL) 23 %; MONOCYTES % (MANUAL) 6 %; PLATELET ESTIMATE NORMAL; RBC MORPH NORMAL
[2023-02-02] MEDS ORDERED: HOLD METFORMIN - RECEIVED CONTRAST 20 ML VIAL IV SCH (16:00)
[2023-02-02] MEDS ORDERED: IOHEXOL 350 MG/ML 100 ML (OMNIPAQUE 350) VIAL IV ONE (16:00)
[2023-02-02] MEDS ORDERED: NS 100 ML (IVPB) BAG IV ONE (16:00)
--- NOTE | 2023-02-02 16:17 | Diagnostic Imaging Report ---
PROCEDURE: CT abdomen and pelvis with contrast. TECHNIQUE: Multiple contiguous axial images were obtained through the abdomen and pelvis after administration of intravenous contrast. Auto Exposure Controls were utilized during the CT exam to meet ALARA standards for radiation dose reduction. All CT scans use one or more of the following dose optimizing techniques: Automated exposure control, MA and/or KvP adjustment based on patient size and exam type or iterative reconstruction. INDICATION: Right flank pain. COMPARISON: 04/08/2022. FINDINGS: There is dependent atelectasis in the lung bases. The heart is normal in size. There is no pericardial effusion. The liver demonstrates no focal lesions. The spleen appears normal. The pancreas appears normal. The adrenal glands are unremarkable. There are simple-appearing cysts in the left kidney, and there appears to be a small 3 mm nonobstructing calculus. No enhancing lesions or hydronephrosis is seen. The bowel loops are nondistended without obstruction. There is ynxhvfrp-uc-bqvpaz stool in the ascending, transverse, and descending colon. Cecum lies deep within the pelvis. The appendix appears normal (image 124, series 2). No free fluid or free air is seen. The aorta is normal in caliber. No lymphadenopathy is seen. No acute osseous abnormality is identified. There is transitional anatomy at the lumbosacral junction with mild right convex curvature in the lumbar spine. IMPRESSION: 1. No hydronephrosis or enhancing renal lesions. Nonobstructing calculus in the left kidney. 2. Ywplnsbb-xu-xnhyme stool in the colon, please correlate with any history of constipation. 3. Transitional anatomy at the lumbosacral junction, can be a source of pain in some individuals. Dictated by: Dictated on workstation # [id number]
[2023-02-02] MEDS ORDERED: CEFD300C3 PO (16:43)
[2023-02-02] MEDS ORDERED: KETO10TA PO (16:59)
[2023-02-02 17:27] VITALS: BP 112/74
== END 2023-02-02 17:28 | disposition home or self-care (01) ==
LOC: EDUNIT# 14:41 → ER 14:43
DX: N39.0 Urinary tract infection, site not specified (principal); K59.00 Constipation, unspecified; F17.200 Nicotine dependence, unspecified, uncomplicated; Z88.1 Allergy status to other antibiotic agents; Z28.310 Unvaccinated for COVID-19
CPT/HCPCS: 36415; 74177; 80053; 81000; 83690; 85007; 85027; 87077; 87088; 87186; 96361; 96365; 96375

== ENCOUNTER 2023-04-26 02:29 | Emergency (ER) | payer MEDICARE, MEDICAID ==
[~2023-04-26] VITALS: Ht 177.8 cm; Wt 65.0 kg
--- NOTE | 2023-04-26 02:52 | ED Abdominal Pain ---
General Stated Complaint: POSS UTI, POSS LOW POTASSIUM Source of Information: Patient Exam Limitations: No Limitations History of Present Illness Date Seen by Provider: Apr 26, 2023 Time Seen by Provider: 02:51 Initial Comments Patient is a 62-year-old female who presents to the emergency department today with a chief complaint of not feeling well over the last 2 or 3 days. She has had decreased appetite not really drinking. She has had a sore throat without fevers or chills. No cough, no shortness of breath. She states she has abdominal bloating and some discomfort in her lower abdomen. History of mul tiple surgeries, on chronic daily [place] 3 times a day. She has a history of lupus and MS. She also has a history of Kane's thyroiditis. She does not currently have a specialist. She is followed by [facility]. Denies dysuria urgency. She had 1 episode of diarrhea earlier in the week that resolved. Last normal bowel movement was this morning. Nonblack nonbloody. Friend is with her and states that he went over to the house to check on her and states that she was very confused. He states she was not oriented to the year or situation. She states that she believes she was just deeply asleep. She is oriented currently. She feels weak. She has had episodes of low potassium in the past and feels like she may be low on potassium today. Timing/Duration: 2-3 Days Severity/Quality: Mild Location: Suprapubic Activities at Onset: None Associated Symptoms: Swelling/Mass in Abdomen ("bloated"), Weakness Allergies and Home Medications Allergies Coded Allergies: Sulfa (Sulfonamide Antibiotics) (Verified Allergy, Unknown, 09/13/15) Patient Home Medication List Home Medication List Reviewed: Yes Acyclovir (Acyclovir) 200 Mg Capsule, 200 MG PO DAILY, (Reported) Entered as Reported by: RONEY ARTEAGA on 04/09/22 1307 Albuterol Sulfate (Ventolin Hfa) 18 Gm Hfa.aer.ad, 2 PUFF PO Q6H PRN for SHORTNESS OF BREATH, (Reported) Entered as Reported by: RONEY ARTEAGA on 04/03/20 0951 Amoxicillin (Amoxicillin) 500 Mg Tablet, 500 MG PO TID Prescribed by: GAIL HUMPHREY on 04/10/22 1142 Amoxicillin/Potassium Clav (Amox Tr-K Clv 875-125 mg Tab) 875 Mg-125 Mg Tablet, 1 EACH PO BID Prescribed by: Stacie Love on 01/03/23 1623 Carisoprodol (Carisoprodol) 350 Mg Tablet, 350 MG PO BID, (Reported) Entered as Reported by: RONEY ARTEAGA on 04/03/20 0951 Cefdinir (Cefdinir) 300 Mg Capsule, 300 MG PO BID Prescribed by: PIA GOETZ on 02/02/23 1643 Cephalexin (Cephalexin) 500 Mg Tablet, 500 MG PO BID Prescribed by: PIA GOETZ on 01/13/23 1512 Estradiol (Estradiol Patch Twice Weekly 0.0375mg/hr) 0.0375 Mg/24 Hour Patch.tdsw, 0.075 MG TD MON, (Reported) Entered as Reported by: RONEY ARTEAGA on 04/09/22 1307 Fexofenadine HCl (Azul Allergy) 180 Mg Tablet, 180 MG PO DAILY, (Reported) Entered as Reported by: RONEY ARTEAGA on 04/09/22 1307 Fosfomycin Tromethamine (Monurol) 3 Gram Pack, 3 GM PO Q48H Prescribed by: GAIL HUMPHREY on 04/09/22 1152 Hydrocodone/Acetaminophen (Hydrocodone-Acetamin 5-325 mg) 5 Mg-325 Mg Tablet, 1 TAB PO Q8H PRN for PAIN-MODERATE (5-7), (Reported) Entered as Reported by: RONEY ARTEAGA on 04/09/22 1307 Hydroxychloroquine Sulfate (Hydroxychloroquine Sulfate) 200 Mg Tablet, 200 MG PO 1800, (Reported) Entered as Reported by: RONEY ARTEAGA on 04/09/22 1307 Ketorolac Tromethamine (Ketorolac Tromethamine) 10 Mg Tablet, 10 MG PO TID Prescribed by: PIA GOETZ on 02/02/23 1659 Levothyroxine Sodium (Levothyroxine Sodium) 88 Mcg Tablet, 88 MCG PO DAILY, (Reported) Entered as Reported by: JU RAE on 10/13/16 1632 Lidocaine (Lidocaine 5% Patch) 5 % Adh..patch, 1 PATCH TD DAILY PRN for PAIN- BREAKTHROUGH, (Reported) Entered as Reported by: RONEY ARTEAGA on 04/09/22 1307 Nitrofurantoin Macrocrystal (Nitrofurantoin) 100 Mg Capsule, 100 MG PO BID Prescribed by: PIA GOETZ on 01/15/23 1246 Paroxetine HCl (Paroxetine HCl) 40 Mg Tablet, 40 MG PO DAILY, (Reported) Entered as Reported by: RONEY ARTEAGA on 04/03/20 0951 Phenazopyridine HCl (Pyridium) 200 Mg Tablet, 1 TAB PO TID Prescribed by: PIA GOETZ on 01/13/23 1458 Prednisone (Prednisone) 10 Mg Tab, 10 MG PO DAILY, (Reported) Entered as Reported by: RONEY ARTEAGA on 04/03/20 0951 Sumatriptan Succinate (Sumatriptan Succinate) 100 Mg Tablet, 100 MG PO BID PRN for MIGRAINE, (Reported) Entered as Reported by: RONEY ARTEAGA on 04/03/20 0953 Review of Systems Review of Systems Constitutional: see HPI, malaise, weakness EENTM: Throat Pain Respiratory: No Symptoms Reported Cardiovascular: No Symptoms Reported Gastrointestinal: Other ("Bloating") Genitourinary: No Symptoms Reported Musculoskeletal: back pain (Low back discomfort) Skin: no symptoms reported Psychiatric/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: No Symptoms Reported All Other Systems Reviewed Negative Unless Noted: Yes Past Yvvmupe-Uysjbk-Txhywh Hx Immunizations Up To Date Tetanus Booster (TDap): Unknown First/Initial COVID19 Vaccinat: NONE Second COVID19 Vaccination Morales: NONE Third COVID19 Vaccination Date: NONE Seasonal Allergies Seasonal Allergies: No Past Medical History Surgery/Hospitalization HX: 6 BLADDER/ URETHRAL SURGERIES, BLADDER MESH ISSUES PMH: MS, LUPUS, HYPOTHYROIDISM Surgeries: Yes Bladder Surgery, Hysterectomy Respiratory: Yes COPD Cardiac: No 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 Multiple Sclerosis [employer] History: Menopausal Genitourinary: Yes (bladder issues related to mesh, chronic abdominal pelvic pain) UTI-Chronic Gastrointestinal: No Musculoskeletal: Yes Chronic Back Pain Endocrine: Yes Hypothyroidsim, Diabetes, Non-Insulin dep, Lupus HEENT: No Cancer: No Psychosocial: No Integumentary: No Blood Disorders: No Family Medical History Cardiovascular disease 19 FATHER Congenital disease G8 SISTER (a muscle disease that is hereditary) Diabetes mellitus 19 FATHER Thyroid disease 19 MOTHER Physical Exam Vital Signs Vital Signs - First Documented 04/26/23 02:40 Temp 36.3 Pulse 93 Resp 16 B/P (MAP) 132/59 (83) Pulse Ox 96 O2 Delivery Room Air Capillary Refill : Height/Weight/BMI Height: 5'10.00" Weight: 125lbs. oz. 56.088806ml; 20.00 BMI Method:Stated General Appearance: WD/WN, no apparent distress, thin HEENT: PERRL/EOMI, pharynx normal Neck: full range of motion, other (Tenderness left submandibular, no discrete nodule. No fluctuance. No overlying erythema. No significant lymphadenopathy is palpable) Respiratory: lungs clear, normal breath sounds, no respiratory distress, no accessory muscle use Cardiovascular: regular rate, rhythm Gastrointestinal: normal bowel sounds, soft, tenderness (Mild tenderness suprapubic) Extremities: normal range of motion, non-tender, normal inspection, no pedal edema Neurologic/Psychiatric: alert, normal mood/affect, oriented x 3 Skin: normal color, warm/dry Progress/Results/Core Measures Results/Orders Lab Results Laboratory Tests Test 04/26/23 02:42 04/26/23 03:10 04/26/23 04:21 Range/Units Urine Color YELLOW Urine Clarity CLEAR Urine pH 6.0 5-9 Urine Specific [place] 1.010 L 1.016-1.022 Urine Protein NEGATIVE NEGATIVE Urine Glucose (UA) NEGATIVE NEGATIVE Urine Ketones NEGATIVE NEGATIVE Urine Nitrite NEGATIVE NEGATIVE Urine Bilirubin NEGATIVE NEGATIVE Urine Urobilinogen 0.2 < = 1.0 MG/DL Urine Leukocyte Esterase NEGATIVE NEGATIVE Urine RBC (Auto) NEGATIVE NEGATIVE Urine RBC NONE /HPF Urine WBC NONE /HPF Urine Crystals NONE /LPF Urine Bacteria NEGATIVE /HPF Urine Casts NONE /LPF Urine Mucus NEGATIVE /LPF Urine Culture Indicated NO White Blood Count 8.4 4.3-11.0 10^3/uL Red Blood Count 4.60 3.80-5.11 10^6/uL Hemoglobin 15.5 11.5-16.0 g/dL Hematocrit 46 35-52 % Mean Corpuscular Volume 101 H 80-99 fL Mean Corpuscular Hemoglobin 34 25-34 pg Mean Corpuscular Hemoglobin Concent 33 32-36 g/dL Red Cell Distribution Width 13.2 10.0-14.5 % Platelet Count 250 130-400 10^3/uL Mean Platelet Volume 9.0 9.0-12.2 fL Immature Granulocyte % (Auto) 1 % Neutrophils (%) (Auto) 86 H 42-75 % Lymphocytes (%) (Auto) 8 L 12-44 % Monocytes (%) (Auto) 5 0-12 % Eosinophils (%) (Auto) 0 0-10 % Basophils (%) (Auto) 0 0-10 % Neutrophils # (Auto) 7.2 1.8-7.8 10^3/uL Lymphocytes # (Auto) 0.7 L 1.0-4.0 10^3/uL Monocytes # (Auto) 0.4 0.0-1.0 10^3/uL Eosinophils # (Auto) 0.0 0.0-0.3 10^3/uL Basophils # (Auto) 0.0 0.0-0.1 10^3/uL Immature Granulocyte # (Auto) 0.1 0.0-0.1 10^3/uL Neutrophils % (Manual) 89 % Lymphocytes % (Manual) 8 % Monocytes % (Manual) 3 % Blood Morphology Comment NORMAL Sodium Level 138 135-145 MMOL/L Potassium Level 4.1 3.6-5.0 MMOL/L Chloride Level 107 98-107 MMOL/L Carbon Dioxide Level 22 21-32 MMOL/L Anion Gap 9 5-14 MMOL/L Blood Urea Nitrogen 5 L 7-18 MG/DL Creatinine 0.73 0.60-1.30 MG/DL Estimat Glomerular Filtration Rate 94 BUN/Creatinine Ratio 7 Glucose Level 125 H 70-105 MG/DL Calcium Level 8.8 8.5-10.1 MG/DL Corrected Calcium 8.9 8.5-10.1 MG/DL Total Bilirubin 0.3 0.1-1.0 MG/DL Aspartate Amino Transf (AST/SGOT) 22 5-34 U/L Alanine Aminotransferase (ALT/SGPT) 19 0-55 U/L Alkaline Phosphatase 49 40-136 U/L Total Protein 6.5 6.4-8.2 GM/DL Albumin 3.9 3.2-4.5 GM/DL SARS-CoV-2 RNA (RT-PCR) Negative Not Detecte My Orders Orders - COTY GREENE MD Ed Iv/Invasive Line Start (04/26/23 03:02) Cbc With Automated Diff (04/26/23 03:02) Comprehensive Metabolic Panel (04/26/23 03:02) Ua Culture If Indicated (04/26/23 03:02) Lactated Ringers (Lr 1000 Ml Iv Solution (04/26/23 03:15) Manual Differential (04/26/23 03:10) Covid 19 Inhouse Test (04/26/23 04:12) Vital Signs/I&O 04/26/23 04/26/23 02:40 05:14 Temp 36.3 36.3 Pulse 93 86 Resp 16 16 B/P (MAP) 132/59 (83) 132/50 Pulse Ox 96 97 O2 Delivery Room Air Room Air Progress Progress Note #1: Time: 04:04 Progress Note Patient seen and evaluated by me. Evaluation today includes physical exam, CBC, serum chemistry, urinalysis, COVID test. Pertinent physical exam findings well- developed well-nourished female in no acute distress. Mild tenderness to the left submandibular region without palpable abscess or mass. Appears adequately hydrated, heart is regular, lungs are clear. Abdomen, mild tenderness in the suprapubic/lower abdomen. Positive bowel sounds. No involuntary guarding or rebound. No focal neurologic deficits. Patient is alert and oriented. Vital signs are stable. Differential diagnosis based on history and physical, hypokalemia, dehydration, COVID. Labs independently reviewed and interpreted by me. Her CBC is normal, urinalysis is negative for infection, COVID test is negative, chemistry is normal/normal potassium. Reassurance provided to the patient. Recommend supportive care. No clinical indications for further studies in the emergency department at this time. Recommend close follow-up with her primary care physician. Return precautions provided in both verbal and written format. All questions are sought and answered. Patient is stable for discharge. Progress Note #2: Time: 05:08 Progress Note No complaints. Stable VS. Comfortable with d/c home. Covid negative. Departure Impression Primary Impression: Viral syndrome Disposition: HOME, SELF-CARE Condition: Stable Departure-Patient Inst. Decision time for Depature: 05:07 Referrals: RONEY PETER DO (PCP/Family) Primary Care Physician Patient Instructions: Viral Syndrome (DC) Add. Discharge Instructions: Drink plenty of fluids to stay well hydrated. Continue your normal daily medications. Acetaminphen as needed for body aches/headache. Please call your primary care doctor for re-evaluation this week. Return to the Emergency Department for re-evaluation for any new, concerning or emergent symptoms. Copy Copies To 1: RONEY PETER KATHRYN M MD Apr 26, 2023 02:52
[2023-04-26 03:12] LABS: BILIRUBIN,URINE NEGATIVE (NEGATIVE); CLARITY,URINE CLEAR; COLOR,URINE YELLOW; GLUCOSE, URINE (UA) NEGATIVE (NEGATIVE); KETONES,URINE NEGATIVE (NEGATIVE); LEUKOCYTE ESTERASE ,URINE NEGATIVE (NEGATIVE); NITRITE,URINE NEGATIVE (NEGATIVE); PROTEIN,URINE NEGATIVE (NEGATIVE)
[2023-04-26] MEDS ORDERED: LACTATED RINGERS 1,000 ML IV SCH (03:15)
[2023-04-26 03:24] LABS: BASOPHILS % (AUTO) 0 % (0-10); EOSINOPHILS % (AUTO) 0 % (0-10); HEMATOCRIT 46 % (35-52); HEMOGLOBIN 15.5 g/dL (11.5-16.0); LYMPHOCYTES # (AUTO) 0.7 10^3/uL (1.0-4.0); LYMPHOCYTES % (AUTO) 8 % (12-44); MEAN CORPUSCULAR HEMOGLOBIN 34 pg (25-34); MEAN CORPUSCULAR HGB CONC 33 g/dL (32-36); MEAN CORPUSCULAR VOLUME 101 fL (80-99); MONOCYTES # (AUTO) 0.4 10^3/uL (0.0-1.0); MONOCYTES % (AUTO) 5 % (0-12); NEUTROPHILS # (AUTO) 7.2 10^3/uL (1.8-7.8); NEUTROPHILS % (AUTO) 86 % (42-75); PLATELET COUNT 250 10^3/uL (130-400); WHITE BLOOD COUNT 8.4 10^3/uL (4.3-11.0)
[2023-04-26 03:32] LABS: BACTERIA,URINE NEGATIVE /HPF
[2023-04-26 03:44] LABS: ALBUMIN 3.9 GM/DL (3.2-4.5); POTASSIUM 4.1 MMOL/L (3.6-5.0)
[2023-04-26 03:45] LABS: CALCIUM 8.8 MG/DL (8.5-10.1)
[2023-04-26 03:46] LABS: TOTAL PROTEIN 6.5 GM/DL (6.4-8.2)
[2023-04-26 03:48] LABS: BILIRUBIN,TOTAL 0.3 MG/DL (0.1-1.0)
[2023-04-26 03:50] LABS: CREATININE SERUM 0.73 MG/DL (0.60-1.30)
[2023-04-26 04:02] LABS: LYMPHOCYTES % (MANUAL) 8 %; MONOCYTES % (MANUAL) 3 %; NEUTROPHILS % (MANUAL) 89 %; RBC MORPH NORMAL
[2023-04-26 05:14] VITALS: BP 132/50
== END 2023-04-26 05:15 | disposition home or self-care (01) ==
LOC: EDUNIT# 02:29 → ER 02:33
DX: B34.9 Viral infection, unspecified (principal); R14.0 Abdominal distension (gaseous); R10.30 Lower abdominal pain, unspecified; R63.0 Anorexia; R53.1 Weakness; R68.84 Jaw pain; Z98.890 Other specified postprocedural states; Z79.1 Long term (current) use of non-steroidal anti-inflammatories (NSAID); Z28.310 Unvaccinated for COVID-19; Z20.822 Contact with and (suspected) exposure to COVID-19
CPT/HCPCS: 36415; 80053; 81000; 85007; 85027; 87636

== ENCOUNTER 2023-06-10 19:36 | Emergency (ER) | payer MEDICARE, MEDICAID ==
[~2023-06-10] VITALS: Ht 177.8 cm; Wt 65.0 kg
[~2023-06-10 19:36] MED LIST changes: -HYDR200T46 PO; +HYDR200T71 PO
[2023-06-10] MEDS ORDERED: cefTRIAXone IV/IM 1,000 MG in NS (IVPB) 50 ML 50 ML IV STA (19:49)
[2023-06-10] MEDS ORDERED: NS IV 1000 ML 1,000 ML IV STA (19:49)
--- NOTE | 2023-06-10 19:53 | ED GU-Female ---
General Stated Complaint: UNABLE TO URINATE BACK/BLADDER PAIN/WEAK Source: patient Exam Limitations: no limitations (SNEHAL SIMPSON) History of Present Illness Date Seen by Provider: Jun 10, 2023 Time Seen by Provider: 19:51 Initial Comments Patient is a 62-year-old female with a history of multiple bladder surgeries, history of frequent urinary tract infection presents ED with suprapubic discomfort over the past 3 days. This pain radiates to the back bilateral. She reports decreased urine output over the past 3 days with burning with urination. She reports nausea without vomiting or diarrhea. She states she feels feverish. She feels slightly disoriented today. This typically is a result of her UTIs. Patient has been taken hydrocodone at home for chronic pain. She denies chest pain, shortness of breath, headache, dizziness, cough. (SNEHAL SIMPSON) Allergies and Home Medications Allergies Coded Allergies: Sulfa (Sulfonamide Antibiotics) (Verified Allergy, Unknown, 09/13/15) Patient Home Medication List Home Medication List Reviewed: Yes (SNEHAL SIMPSON) Acyclovir (Acyclovir) 200 Mg Capsule, 200 MG PO DAILY, (Reported) Entered as Reported by: RONEY ARTEAGA on 04/09/22 1307 Albuterol Sulfate (Ventolin Hfa) 18 Gm Hfa.aer.ad, 2 PUFF PO Q6H PRN for SHORTNESS OF BREATH, (Reported) Entered as Reported by: RONEY ARTEAGA on 04/03/20 0951 Amoxicillin (Amoxicillin) 500 Mg Tablet, 500 MG PO TID Prescribed by: GAIL HUMPHREY on 04/10/22 1142 Amoxicillin/Potassium Clav (Amox Tr-K Clv 875-125 mg Tab) 875 Mg-125 Mg Tablet, 1 EACH PO BID Prescribed by: Stacie Love on 01/03/23 1623 Carisoprodol (Carisoprodol) 350 Mg Tablet, 350 MG PO BID, (Reported) Entered as Reported by: RONEY ARTEAGA on 04/03/20 0951 Cefdinir (Cefdinir) 300 Mg Capsule, 300 MG PO BID Prescribed by: PIA GOETZ on 02/02/23 1643 Cephalexin (Cephalexin) 500 Mg Tablet, 500 MG PO BID Prescribed by: PIA GOETZ on 01/13/23 1512 Cephalexin (Cephalexin) 500 Mg Tablet, 500 MG PO BID Prescribed by: PIA GOETZ on 06/10/23 2115 Estradiol (Estradiol Patch Twice Weekly 0.0375mg/hr) 0.0375 Mg/24 Hour Patch.tdsw, 0.075 MG TD MON, (Reported) Entered as Reported by: RONEY ARTEAGA on 04/09/22 1307 Fexofenadine HCl (Azul Allergy) 180 Mg Tablet, 180 MG PO DAILY, (Reported) Entered as Reported by: RONEY ARTEAGA on 04/09/22 1307 Fosfomycin Tromethamine (Monurol) 3 Gram Pack, 3 GM PO Q48H Prescribed by: GAIL HUMPHREY on 04/09/22 1152 Hydrocodone/Acetaminophen (Hydrocodone-Acetamin 5-325 mg) 5 Mg-325 Mg Tablet, 1 TAB PO Q8H PRN for PAIN-MODERATE (5-7), (Reported) Entered as Reported by: RONEY ARTEAGA on 04/09/22 1307 Hydroxychloroquine Sulfate (Hydroxychloroquine Sulfate) 200 Mg Tablet, 200 MG PO 1800, (Reported) Entered as Reported by: RONEY ARTEAGA on 04/09/22 1307 Ketorolac Tromethamine (Ketorolac Tromethamine) 10 Mg Tablet, 10 MG PO TID Prescribed by: PIA GOETZ on 02/02/23 1659 Levothyroxine Sodium (Levothyroxine Sodium) 88 Mcg Tablet, 88 MCG PO DAILY, (Reported) Entered as Reported by: JU RAE on 10/13/16 1632 Lidocaine (Lidocaine 5% Patch) 5 % Adh..patch, 1 PATCH TD DAILY PRN for PAIN- BREAKTHROUGH, (Reported) Entered as Reported by: RONEY ARTEAGA on 04/09/22 1307 Nitrofurantoin Macrocrystal (Nitrofurantoin) 100 Mg Capsule, 100 MG PO BID Prescribed by: PIA GOETZ on 01/15/23 1246 Paroxetine HCl (Paroxetine HCl) 40 Mg Tablet, 40 MG PO DAILY, (Reported) Entered as Reported by: RONEY ARTEAGA on 04/03/20 0951 Phenazopyridine HCl (Pyridium) 200 Mg Tablet, 1 TAB PO TID Prescribed by: PIA GOETZ on 01/13/23 1458 Prednisone (Prednisone) 10 Mg Tab, 10 MG PO DAILY, (Reported) Entered as Reported by: RONEY ARTEAGA on 04/03/20 0951 Sumatriptan Succinate (Sumatriptan Succinate) 100 Mg Tablet, 100 MG PO BID PRN for MIGRAINE, (Reported) Entered as Reported by: RONEY ARTEAGA on 04/03/20 0953 Review of Systems Review of Systems Constitutional: No chills, No diaphoresis; fever, weakness EENTM: No hearing loss, No ear pain, No blurred vision Respiratory: No cough, No dyspnea on exertion Cardiovascular: No chest pain Gastrointestinal: abdominal pain; No diarrhea; nausea; No vomiting Genitourinary: burning; denies discharge, denies dysuria, denies frequency; pain Musculoskeletal: No back pain, No joint pain Skin: No change in color (SNEHAL SIMPSON) All Other Systemes Reviewed Negative Unless Noted: Yes (SNEHAL SIMPSON) Past Ibdcuwp-Gfqick-Muuyjr Hx Immunizations Up To Date Tetanus Booster (TDap): Unknown First/Initial COVID19 Vaccinat: NONE Second COVID19 Vaccination Morales: NONE Third COVID19 Vaccination Date: NONE (SNEHAL SIMPSON) Seasonal Allergies Seasonal Allergies: No (SNEHAL SIMPSON) Past Medical History Surgery/Hospitalization HX: 6 BLADDER/ URETHRAL SURGERIES, BLADDER MESH ISSUES PMH: MS, LUPUS, HYPOTHYROIDISM Surgeries: Yes Bladder Surgery, Hysterectomy Respiratory: Yes COPD Cardiac: No 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 Multiple Sclerosis 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 Genitourinary: Yes (bladder issues related to mesh, chronic abdominal pelvic pain) UTI-Chronic Gastrointestinal: No Musculoskeletal: Yes Chronic Back Pain Endocrine: Yes Hypothyroidsim, Diabetes, Non-Insulin dep, Lupus HEENT: No Cancer: No Psychosocial: No Integumentary: No Blood Disorders: No (SNEHAL SIMPSON) Family Medical History Cardiovascular disease 19 FATHER Congenital disease G8 SISTER (a muscle disease that is hereditary) Diabetes mellitus 19 FATHER Thyroid disease 19 MOTHER Physical Exam Vital Signs Vital Signs - First Documented 06/10/23 06/10/23 19:44 21:20 Temp 36.8 Pulse 91 Resp 16 B/P (MAP) 117/80 (92) Pulse Ox 97 O2 Delivery Room Air (RONNIE,KENDRA K DO) Vital Signs Capillary Refill : (SNEHAL SIMPSON) Height, Weight, BMI Height: 5'10.00" Weight: 125lbs. oz. [id number]; 20.00 BMI Method:Stated General Appearance: WD/WN, no apparent distress HEENT: PERRL/EOMI, normal ENT inspection, TMs normal, pharynx normal Neck: non-tender, full range of motion, supple, normal inspection Cardiovascular: regular rate, rhythm, no edema, no gallop, no JVD Respiratory: chest non-tender, lungs clear, normal breath sounds, no respiratory distress, no accessory muscle use Gastrointestinal: normal bowel sounds, soft, no organomegaly, no pulsatile ma ss, tenderness (Suprapubic tenderness) Back: normal inspection, no vertebral tenderness, CVA tenderness (R), CVA tenderness (L) Extremities: normal range of motion, non-tender, normal inspection 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, no motor/sensory deficits, alert, normal mood/affect, oriented x 3 Skin: normal color, warm/dry (SNEHAL SIMPSON) Progress/Results/Core Measures Suspected Sepsis SIRS Temperature: Pulse: Respiratory Rate: Laboratory Tests 06/10/23 19:50: White Blood Count 13.7H Blood Pressure / Mean: Laboratory Tests 06/10/23 19:50: Creatinine 0.80, Platelet Count 303, Total Bilirubin 0.5 (SNEHAL SIMPSON) Results/Orders Lab Results Laboratory Tests Test 06/10/23 19:50 06/10/23 19:58 Range/Units White Blood Count 13.7 H 4.3-11.0 10^3/uL Red Blood Count 4.80 3.80-5.11 10^6/uL Hemoglobin 16.2 H 11.5-16.0 g/dL Hematocrit 49 35-52 % Mean Corpuscular Volume 102 H 80-99 fL Mean Corpuscular Hemoglobin 34 25-34 pg Mean Corpuscular Hemoglobin Concent 33 32-36 g/dL Red Cell Distribution Width 12.9 10.0-14.5 % Platelet Count 303 130-400 10^3/uL Mean Platelet Volume 8.8 L 9.0-12.2 fL Immature Granulocyte % (Auto) 1 % Neutrophils (%) (Auto) 61 42-75 % Lymphocytes (%) (Auto) 30 12-44 % Monocytes (%) (Auto) 7 0-12 % Eosinophils (%) (Auto) 1 0-10 % Basophils (%) (Auto) 1 0-10 % Neutrophils # (Auto) 8.4 H 1.8-7.8 10^3/uL Lymphocytes # (Auto) 4.1 H 1.0-4.0 10^3/uL Monocytes # (Auto) 1.0 0.0-1.0 10^3/uL Eosinophils # (Auto) 0.1 0.0-0.3 10^3/uL Basophils # (Auto) 0.1 0.0-0.1 10^3/uL Immature Granulocyte # (Auto) 0.1 0.0-0.1 10^3/uL Sodium Level 139 135-145 MMOL/L Potassium Level 4.1 3.6-5.0 MMOL/L Chloride Level 106 98-107 MMOL/L Carbon Dioxide Level 23 21-32 MMOL/L Anion Gap 10 5-14 MMOL/L Blood Urea Nitrogen 5 L 7-18 MG/DL Creatinine 0.80 0.60-1.30 MG/DL Estimat Glomerular Filtration Rate 84 BUN/Creatinine Ratio 6 Glucose Level 67 L 70-105 MG/DL Calcium Level 9.3 8.5-10.1 MG/DL Corrected Calcium 9.4 8.5-10.1 MG/DL Total Bilirubin 0.5 0.1-1.0 MG/DL Aspartate Amino Transf (AST/SGOT) 22 5-34 U/L Alanine Aminotransferase (ALT/SGPT) 19 0-55 U/L Alkaline Phosphatase 50 40-136 U/L Total Protein 6.8 6.4-8.2 GM/DL Albumin 3.9 3.2-4.5 GM/DL Urine Color YELLOW Urine Clarity CLEAR Urine pH 7.0 5-9 Urine Specific [place] 1.015 L 1.016-1.022 Urine Protein NEGATIVE NEGATIVE Urine Glucose (UA) NEGATIVE NEGATIVE Urine Ketones NEGATIVE NEGATIVE Urine Nitrite NEGATIVE NEGATIVE Urine Bilirubin NEGATIVE NEGATIVE Urine Urobilinogen 0.2 < = 1.0 MG/DL Urine Leukocyte Esterase NEGATIVE NEGATIVE Urine RBC (Auto) 1+ H NEGATIVE Urine RBC 0-2 /HPF Urine WBC 0-2 /HPF Urine Squamous Epithelial Cells 2-5 /HPF Urine Crystals NONE /LPF Urine Bacteria TRACE /HPF Urine Casts NONE /LPF Urine Mucus NEGATIVE /LPF Urine Culture Indicated NO (KENDRA TRUJILLO ) Medications Given in ED Current Medications Medications Dose Ordered Sig/Jens Route Start Time Stop Time Status Last Admin Dose Admin Ondansetron HCl 4 mg ONCE ONCE IVP 06/10/23 20:15 06/10/23 20:16 DC 06/10/23 20:09 4 MG (RONNIEKENDRA Shaheen DO) Vital Signs/I&O 06/10/23 06/10/23 19:44 21:20 Temp 36.8 36.5 Pulse 91 63 Resp 16 16 B/P (MAP) 117/80 (92) 126/67 Pulse Ox 97 99 O2 Delivery Room Air 06/11/23 00:00 Intake Total 1050 ml Balance 1050 ml (RONNIEKENDRA Shaheen LI) Vital Signs/I&O Capillary Refill : (SNEHAL SIMPSON) Departure Communication (PCP) Reviewed previous ER visits, H&P, lab testing. Frequent history of UTIs. [place] prapubic discomfort bilateral flank discomfort. She she feels slightly disoriented today. Alert and oriented x4. Suprapubic discomfort and tenderness on palpation. Multiple surgeries of her bladder resulting in her frequent UTIs. She has been seen in the past for UTIs with multiple visits. Due to her current complaint urinalysis CBC, CMP and a liter of fluid. CBC shows slight elevated white blood count at 13. Normal kidney function, liver function. Hemodynamically stable. urinalysis positive for hematuria without strong evidence of UTI. Due to her frequent history of UTIs she initially received a dose of Rocephin. CT scan showed a stable 0.5 cm left kidney stone. No evidence of urolithiasis, hydronephrosis or acute abnormality in the abdomen. She did receive Zofran for nausea. She states her nausea has improved with the Zofran and a liter of fluid. Pain is improved as well. She states she has a history of having a normal initial urinalysis and will eventually test positive within a 5-day period. She states this feels similiar to a UTI. Results may be early and due to her significant history of UTIs will discharge with Keflex. Susceptible to cephalexin in the past. Recommend follow-up your PCP in 2 to 3 days for reevaluation. If any worsening symptoms return back to ED. Hemodynamically stable. Patient will be discharged at this time (SNEHAL SIMPSON) Impression Primary Impression: Nephrolithiasis Disposition: 01 HOME, SELF-CARE Condition: Stable Departure-Patient Inst. Decision time for Depature: 21:14 (SNEHAL SIMPSON) Referrals: RONEY PETER DO (PCP/Family) Primary Care Physician Patient Instructions: Kidney Stones (DC) Add. Discharge Instructions: Take Keflex as prescribed. Follow-up with urology outpatient for kidney stone. [id number] Scripts Cephalexin (Cephalexin) 500 Mg Tablet 500 MG PO BID for 7 Days, #14 TAB Prov: SNEHAL SIMPSON 06/10/23 ATTENDING PHYSICIAN NOTE: I WAS PHYSICALLY PRESENT ER PHYSICIAN, BUT I WAS NOT INVOLVED IN ANY DECISION MAKING OR ANY CARE OF THIS PATIENT AND I AM NOT COLLABORATING PHYSICIAN. (KENDRA TRUJILLO DO) SNEHAL SIMPSON Jun 10, 2023 19:53 KENDRA TRUJILLO DO Jun 11, 2023 00:52
[2023-06-10 20:00] LABS: BASOPHILS # (AUTO) 0.1 10^3/uL (0.0-0.1); BASOPHILS % (AUTO) 1 % (0-10); EOSINOPHILS # (AUTO) 0.1 10^3/uL (0.0-0.3); EOSINOPHILS % (AUTO) 1 % (0-10); HEMATOCRIT 49 % (35-52); HEMOGLOBIN 16.2 g/dL (11.5-16.0); LYMPHOCYTES # (AUTO) 4.1 10^3/uL (1.0-4.0); LYMPHOCYTES % (AUTO) 30 % (12-44); MEAN CORPUSCULAR HEMOGLOBIN 34 pg (25-34); MEAN CORPUSCULAR HGB CONC 33 g/dL (32-36); MEAN CORPUSCULAR VOLUME 102 fL (80-99); MEAN PLATELET VOLUME 8.8 fL (9.0-12.2); MONOCYTES % (AUTO) 7 % (0-12); NEUTROPHILS # (AUTO) 8.4 10^3/uL (1.8-7.8); NEUTROPHILS % (AUTO) 61 % (42-75); PLATELET COUNT 303 10^3/uL (130-400); WHITE BLOOD COUNT 13.7 10^3/uL (4.3-11.0)
[2023-06-10] MEDS ORDERED: ONDANSETRON 4 MG/2 ML (SDV) Z0FRAN ONE (20:08)
[2023-06-10 20:11] LABS: BILIRUBIN,URINE NEGATIVE (NEGATIVE); CLARITY,URINE CLEAR; COLOR,URINE YELLOW; GLUCOSE, URINE (UA) NEGATIVE (NEGATIVE); KETONES,URINE NEGATIVE (NEGATIVE); NITRITE,URINE NEGATIVE (NEGATIVE); PROTEIN,URINE NEGATIVE (NEGATIVE)
[2023-06-10 20:12] LABS: BACTERIA,URINE TRACE /HPF; LEUKOCYTE ESTERASE ,URINE NEGATIVE (NEGATIVE); RBC,URINE 0-2 /HPF; WBC,URINE 0-2 /HPF
[2023-06-10] MEDS ORDERED: ONDANSETRON 4 MG/2 ML (SDV) Z0FRAN IVP ONE (20:15)
[2023-06-10 20:21] LABS: ALBUMIN 3.9 GM/DL (3.2-4.5); BILIRUBIN,TOTAL 0.5 MG/DL (0.1-1.0); CALCIUM 9.3 MG/DL (8.5-10.1); CREATININE SERUM 0.8 MG/DL (0.60-1.30); POTASSIUM 4.1 MMOL/L (3.6-5.0); TOTAL PROTEIN 6.8 GM/DL (6.4-8.2)
--- NOTE | 2023-06-10 21:03 | Diagnostic Imaging Report ---
PROCEDURE: CT urinary tract, rule out kidney stone. TECHNIQUE: Multiple contiguous axial images were obtained through the abdomen and pelvis without the use of intravenous contrast. Auto Exposure Controls were utilized during the CT exam to meet ALARA standards for radiation dose reduction. INDICATION: Suprapubic pain. Bilateral flank pain. History of kidney stones. COMPARISON: CT abdomen and pelvis with IV contrast 02/02/2023. FINDINGS: Lung bases are clear. Liver, gallbladder, pancreas, spleen, bladder, right kidney and ureters are negative on this noncontrast exam. Nonobstructing calyceal tip stone in the lower pole of the left kidney measuring approximately 0.5 cm. Stable appearing cyst in the left kidney. Hysterectomy. No free intraperitoneal air or fluid. No lymphadenopathy. No evidence of bowel obstruction. Osseous structures are intact. IMPRESSION: 1. No acute CT finding in the abdomen or pelvis. 2. Stable 0.5 cm nonobstructing calyceal tip renal stone in the lower pole of the left kidney. No ureteral stone or hydronephrosis. Dictated by: Dictated on workstation # [id number]
[2023-06-10] MEDS ORDERED: CEPH500T PO (21:15)
[2023-06-10 21:20] VITALS: BP 126/67
== END 2023-06-10 21:22 | disposition home or self-care (01) ==
LOC: EDUNIT# 19:36 → ER 19:38
DX: N20.0 Calculus of kidney (principal); M54.9 Dorsalgia, unspecified; G89.29 Other chronic pain; Z88.2 Allergy status to sulfonamides; Z87.448 Personal history of other diseases of urinary system; Z79.891 Long term (current) use of opiate analgesic; Z28.310 Unvaccinated for COVID-19
CPT/HCPCS: 36415; 74176; 80053; 81000; 85025

== ENCOUNTER 2023-09-21 15:45 | Emergency (ER) | payer MEDICARE, MEDICAID ==
[~2023-09-21] VITALS: Ht 175.2 cm; Wt 65.0 kg
--- NOTE | 2023-09-21 16:18 | ED GU-Female ---
General Chief Complaint: - Reproductive Stated Complaint: UTI/FEVER Source: patient Exam Limitations: no limitations History of Present Illness Date Seen by Provider: Sep 21, 2023 Time Seen by Provider: 16:07 Initial Comments 63-year-old female presents to the ER with concerns of a UTI. She has a long history of frequent UTIs. She has had several bladder surgeries. She states she was treated for UTI approximately 1 month ago by the [facility], states that she feels as though the UTI never fully went away. She reports that symptoms became worse over the last 2 days. Reports constant lower abdominal pain, lower back pain, burning with urination, increased urination, and decreased urine output. She also reports some lower abdominal distention, she states that when she has a UTI she has some problems with backup of her bowels. She last had a bowel movement yesterday and it was normal. She reports subjective fevers and chills. Reports nausea, denies vomiting. Denies diarrhea. Allergies and Home Medications Allergies Coded Allergies: Sulfa (Sulfonamide Antibiotics) (Verified Allergy, Unknown, 09/13/15) Patient Home Medication List Home Medication List Reviewed: Yes Acyclovir (Acyclovir) 200 Mg Capsule, 200 MG PO DAILY, (Reported) Entered as Reported by: RONEY ARTEAGA on 04/09/22 1307 Albuterol Sulfate (Ventolin Hfa) 18 Gm Hfa.aer.ad, 2 PUFF PO Q6H PRN for SHORTNESS OF BREATH, (Reported) Entered as Reported by: RONEY ARTEAGA on 04/03/20 0951 Amoxicillin (Amoxicillin) 500 Mg Tablet, 500 MG PO TID Prescribed by: GAIL HUMPHREY on 04/10/22 1142 Amoxicillin/Potassium Clav (Amox Tr-K Clv 875-125 mg Tab) 875 Mg-125 Mg Tablet, 1 EACH PO BID Prescribed by: Stacie Love on 01/03/23 1623 Carisoprodol (Carisoprodol) 350 Mg Tablet, 350 MG PO BID, (Reported) Entered as Reported by: RONEY ARTEAGA on 04/03/20 0951 Cefdinir (Cefdinir) 300 Mg Capsule, 300 MG PO BID Prescribed by: PIA GOETZ on 02/02/23 1643 Cephalexin (Cephalexin) 500 Mg Tablet, 500 MG PO BID Prescribed by: PIA GOETZ on 01/13/23 1512 Cephalexin (Cephalexin) 500 Mg Tablet, 500 MG PO BID Prescribed by: PIA GOETZ on 06/10/23 2115 Estradiol (Estradiol Patch Twice Weekly 0.0375mg/hr) 0.0375 Mg/24 Hour Patch.tdsw, 0.075 MG TD MON, (Reported) Entered as Reported by: RONEY ARTEAGA on 04/09/22 1307 Fexofenadine HCl (Azul Allergy) 180 Mg Tablet, 180 MG PO DAILY, (Reported) Entered as Reported by: RONEY ARTEAGA on 04/09/22 1307 Fosfomycin Tromethamine (Monurol) 3 Gram Pack, 3 GM PO Q48H Prescribed by: GAIL HUMPHREY on 04/09/22 1152 Hydrocodone/Acetaminophen (Hydrocodone-Acetamin 5-325 mg) 5 Mg-325 Mg Tablet, 1 TAB PO Q8H PRN for PAIN-MODERATE (5-7), (Reported) Entered as Reported by: RONEY ARTEAGA on 04/09/22 1307 Hydroxychloroquine Sulfate (Hydroxychloroquine Sulfate) 200 Mg Tablet, 200 MG PO 1800, (Reported) Entered as Reported by: RONEY ARTEAGA on 04/09/22 1307 Ketorolac Tromethamine (Ketorolac Tromethamine) 10 Mg Tablet, 10 MG PO TID Prescribed by: PIA GOETZ on 02/02/23 1659 Ketorolac Tromethamine (Ketorolac Tromethamine) 10 Mg Tablet, 10 MG PO TID Prescribed by: Stacie Love on 09/21/23 1808 Levothyroxine Sodium (Levothyroxine Sodium) 88 Mcg Tablet, 88 MCG PO DAILY, (Reported) Entered as Reported by: JU RAE on 10/13/16 1632 Lidocaine (Lidocaine 5% Patch) 5 % Adh..patch, 1 PATCH TD DAILY PRN for PAIN-BREAKTHROUGH, (Reported) Entered as Reported by: RONEY ARTEAGA on 04/09/22 1307 Nitrofurantoin Macrocrystal (Nitrofurantoin) 100 Mg Capsule, 100 MG PO BID Prescribed by: PIA GOETZ on 01/15/23 1246 Nitrofurantoin Macrocrystal (Nitrofurantoin) 100 Mg Capsule, 100 MG PO BID Prescribed by: Stacie Love on 09/21/23 1808 Paroxetine HCl (Paroxetine HCl) 40 Mg Tablet, 40 MG PO DAILY, (Reported) Entered as Reported by: RONEY ARTEAGA on 04/03/20 0951 Phenazopyridine HCl (Pyridium) 200 Mg Tablet, 1 TAB PO TID Prescribed by: PIA GOETZ on 01/13/23 1458 Prednisone (Prednisone) 10 Mg Tab, 10 MG PO DAILY, (Reported) Entered as Reported by: RONEY ARTEAGA on 04/03/20 0951 Sumatriptan Succinate (Sumatriptan Succinate) 100 Mg Tablet, 100 MG PO BID PRN for MIGRAINE, (Reported) Entered as Reported by: RONEY ARTEAGA on 04/03/20 0953 Review of Systems Review of Systems Constitutional: see HPI Past Bqpukdl-Eyrbyx-Pynbuz Hx Patient Social History Tobacco Use?: Yes Tobacco type used: Cigarettes Smoking Status: Current Everyday Smoker Use of E-Cig and/or Vaping dev: No Substance use?: No Alcohol Use?: Yes Alcohol type: Hard Liquor Alcohol Frequency: Once in a while Pt feels they are or have been: No Immunizations Up To Date Tetanus Booster (TDap): Unknown Influenza Vaccine Up-to-Date: No; Not Current First/Initial COVID19 Vaccinat: NONE Second COVID19 Vaccination Morales: NONE Third COVID19 Vaccination Date: NONE Seasonal Allergies Seasonal Allergies: No Past Medical History Surgery/Hospitalization HX: 6 BLADDER/ URETHRAL SURGERIES, BLADDER MESH ISSUES PMH: MS, LUPUS, HYPOTHYROIDISM Surgeries: Yes Bladder Surgery, Hysterectomy Respiratory: Yes COPD Cardiac: No 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 Multiple Sclerosis 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 Genitourinary: Yes (bladder issues related to mesh, chronic abdominal pelvic pain) UTI-Chronic Gastrointestinal: No Musculoskeletal: Yes Chronic Back Pain Endocrine: Yes Hypothyroidsim, Diabetes, Non-Insulin dep, Lupus HEENT: No Cancer: No Psychosocial: No Integumentary: No Blood Disorders: No Family Medical History Cardiovascular disease 19 FATHER Congenital disease G8 SISTER (a muscle disease that is hereditary) Diabetes mellitus 19 FATHER Thyroid disease 19 MOTHER Physical Exam Vital Signs Vital Signs - First Documented 09/21/23 16:00 Temp 36.6 Pulse 103 Resp 18 B/P (MAP) 116/72 (87) Pulse Ox 96 O2 Delivery Room Air Capillary Refill : Height, Weight, BMI Height: 5'10.00" Weight: 125lbs. oz. 56.755609fr; 20.00 BMI Method:Stated General Appearance: WD/WN, no apparent distress Neck: supple, normal inspection Cardiovascular: regular rate, rhythm Respiratory: lungs clear, normal breath sounds, no respiratory distress, no accessory muscle use Gastrointestinal: normal bowel sounds, soft, tenderness (Lower abdomen) Back: no CVA tenderness Extremities: normal range of motion, normal inspection Neurologic/Psychiatric: alert, normal mood/affect Skin: normal color, warm/dry Progress/Results/Core Measures Suspected Sepsis SIRS Temperature: Pulse: Respiratory Rate: Laboratory Tests 09/21/23 16:45: White Blood Count 15.0H Blood Pressure / Mean: Laboratory Tests 09/21/23 16:45: Creatinine 0.74, Platelet Count 289, Total Bilirubin 0.4 Results/Orders Lab Results Laboratory Tests Test 09/21/23 16:10 09/21/23 16:45 Range/Units Urine Color ORANGE Urine Clarity CLEAR Urine pH 5.0 5-9 Urine Specific [place] <=1.005 1.016-1.022 Urine Protein 1+ H NEGATIVE Urine Glucose (UA) TRACE H NEGATIVE Urine Ketones TRACE H NEGATIVE Urine Nitrite POSITIVE H NEGATIVE Urine Bilirubin NEGATIVE NEGATIVE Urine Urobilinogen 1.0 < = 1.0 MG/DL Urine Leukocyte Esterase 3+ H NEGATIVE Urine RBC (Auto) 1+ H NEGATIVE Urine RBC 10-25 H /HPF Urine WBC TNTC H /HPF Urine Squamous Epithelial Cells RARE /HPF Urine Crystals NONE /LPF Urine Bacteria MODERATE H /HPF Urine Casts NONE /LPF Urine Mucus NEGATIVE /LPF Urine Culture Indicated YES White Blood Count 15.0 H 4.3-11.0 10^3/uL Red Blood Count 4.54 3.80-5.11 10^6/uL Hemoglobin 15.5 11.5-16.0 g/dL Hematocrit 46 35-52 % Mean Corpuscular Volume 102 H 80-99 fL Mean Corpuscular Hemoglobin 34 25-34 pg Mean Corpuscular Hemoglobin Concent 34 32-36 g/dL Red Cell Distribution Width 12.5 10.0-14.5 % Platelet Count 289 130-400 10^3/uL Mean Platelet Volume 8.8 L 9.0-12.2 fL Immature Granulocyte % (Auto) 1 % Neutrophils (%) (Auto) 70 42-75 % Lymphocytes (%) (Auto) 23 12-44 % Monocytes (%) (Auto) 6 0-12 % Eosinophils (%) (Auto) 1 0-10 % Basophils (%) (Auto) 1 0-10 % Neutrophils # (Auto) 10.4 H 1.8-7.8 10^3/uL Lymphocytes # (Auto) 3.4 1.0-4.0 10^3/uL Monocytes # (Auto) 0.9 0.0-1.0 10^3/uL Eosinophils # (Auto) 0.1 0.0-0.3 10^3/uL Basophils # (Auto) 0.1 0.0-0.1 10^3/uL Immature Granulocyte # (Auto) 0.1 0.0-0.1 10^3/uL Neutrophils % (Manual) 69 % Lymphocytes % (Manual) 25 % Monocytes % (Manual) 4 % Eosinophils % (Manual) 1 % Band Neutrophils 1 % Blood Morphology Comment NORMAL Sodium Level 139 135-145 MMOL/L Potassium Level 3.6 3.6-5.0 MMOL/L Chloride Level 105 98-107 MMOL/L Carbon Dioxide Level 28 21-32 MMOL/L Anion Gap 6 5-14 MMOL/L Blood Urea Nitrogen 4 L 7-18 MG/DL Creatinine 0.74 0.60-1.30 MG/DL Estimat Glomerular Filtration Rate 91 BUN/Creatinine Ratio 5 Glucose Level 92 70-105 MG/DL Calcium Level 8.8 8.5-10.1 MG/DL Corrected Calcium 9.0 8.5-10.1 MG/DL Total Bilirubin 0.4 0.1-1.0 MG/DL Aspartate Amino Transf (AST/SGOT) 19 5-34 U/L Alanine Aminotransferase (ALT/SGPT) 15 0-55 U/L Alkaline Phosphatase 44 40-136 U/L C-Reactive Protein High Sensitivity 0.44 0.00-0.50 MG/DL Total Protein 6.3 L 6.4-8.2 GM/DL Albumin 3.7 3.2-4.5 GM/DL My Orders Orders - STACIE NG R WEB APPLICATION DEV SPECIALIST Ua Culture If Indicated (09/21/23 16:07) Cbc And Automated Diff (09/21/23 16:18) Comprehensive Metabolic Panel (09/21/23 16:18) Hs C Reactive Protein (09/21/23 16:18) Ed Iv/Invasive Line Start (09/21/23 16:18) Ns Iv 1000 Ml (Ns Iv 1000 Ml) (09/21/23 16:30) Ketorolac Injection (Ketorolac Injection (09/21/23 16:30) Ondansetron Injection (Ondansetron Inj (09/21/23 16:30) Urine Culture (09/21/23 16:10) Ceftriaxone Iv/Im (Ceftriaxone Iv/Im) (09/21/23 17:00) Manual Differential (09/21/23 16:45) Rx-Nitrofurantoin [place] (Rx-Macrobid) (09/21/23 17:57) Medications Given in ED Current Medications Medications Dose Ordered Sig/Jens Route Start Time Stop Time Status Last Admin Dose Admin Ceftriaxone Sodium 1000 mg/ Sodium Chloride 50 ml @ 100 mls/hr ONCE ONCE IV 09/21/23 17:00 09/21/23 17:29 DC 09/21/23 17:46 100 MLS/HR Ketorolac Tromethamine 15 mg ONCE ONCE IVP 09/21/23 16:30 09/21/23 16:31 DC 09/21/23 16:50 15 MG Ondansetron HCl 4 mg ONCE ONCE IVP 09/21/23 16:30 09/21/23 16:31 DC 09/21/23 16:50 4 MG Vital Signs/I&O 09/21/23 09/21/23 16:00 18:16 Temp 36.6 36.6 Pulse 103 74 Resp 18 18 B/P (MAP) 116/72 (87) 131/48 Pulse Ox 96 97 O2 Delivery Room Air Room Air Capillary Refill : Progress Note : Progress Note Patient seen and evaluated, resting in bed, no acute distress. Based on exam and symptoms, this is likely a urinary tract infection. She has no CVA tenderness, likely not pyelonephritis. Workup initiated including CBC, CMP, CRP, UA. IV fluids, Toradol, and Zofran ordered. 1701 urinalysis reviewed. It shows 1+ protein, trace glucose, trace ketones, positive nitrites, 3+ leukocytes, 1+ RBCs, too many to count WBCs, moderate bacteria. IV Rocephin ordered. 180 Labs reviewed. BC shows elevated WBC 15.0. Neutrophil elevated 10.4. CMP grossly normal. CRP normal. Results discussed with patient. Will discharge with take-home antibiotic and prescription for antibiotic, as well as Toradol PO as requested by patient. Patient is stable for discharge. Discharge instructions and return precautions provided. Departure Impression Primary Impression: Urinary tract infection Disposition: HOME, SELF-CARE Condition: Stable Departure-Patient Inst. Decision time for Depature: 18:04 Referrals: RONEY PETER DO (PCP/Family) Primary Care Physician Patient Instructions: Urinary Tract Infection, Adult (DC) Add. Discharge Instructions: Complete full course of antibiotic as prescribed. You will take the 2 take-home pills tomorrow, 1 in the morning and 1 in the evening. You will then need to spanish moss picker the prescription to complete the rest of the antibiotic. concrete paving supervisor the prescription for Toradol at the pharmacy. If they are not open tomorrow, you can take 800 mg of ibuprofen every 8 hours with food instead. You can to also take Pyridium (Azo) [id number] for pain. Do not take this more than 3 days in a row. Make sure you are drinking plenty of water. Follow-up with your primary care provider after you complete the antibiotic. Return for fever, severe back pain, or any other new, concerning, or worsening symptoms. All discharge instructions reviewed with patient and/or family. Voiced understanding. Scripts Ketorolac Tromethamine (Ketorolac Tromethamine) 10 Mg Tablet 10 MG PO TID, #15 TAB 0 Refills Prov: STACIE NG APRN 09/21/23 Nitrofurantoin Macrocrystal (Nitrofurantoin) 100 Mg Capsule 100 MG PO BID for 4 Days, #8 CAP 0 Refills Prov: STACIE NG APRN 09/21/23 STACIE NG APRN Sep 21, 2023 16:18
[2023-09-21] MEDS ORDERED: ONDANSETRON INJECTION 4 MG/2 ML (SDV) IVP ONE (16:30)
[2023-09-21] MEDS ORDERED: NS IV 1000 ML 1,000 ML IV SCH (16:30)
[2023-09-21] MEDS ORDERED: KETOROLAC INJ 15 MG/ML VIAL IVP ONE (16:30)
[2023-09-21 16:35] LABS: BACTERIA,URINE MODERATE /HPF; BILIRUBIN,URINE NEGATIVE (NEGATIVE); CLARITY,URINE CLEAR; COLOR,URINE ORANGE; GLUCOSE, URINE (UA) TRACE (NEGATIVE); KETONES,URINE TRACE (NEGATIVE); LEUKOCYTE ESTERASE ,URINE 3+ (NEGATIVE); NITRITE,URINE POSITIVE (NEGATIVE); PROTEIN,URINE 1+ (NEGATIVE); SQUAMOUS EPITHELIAL CELL,UR RARE /HPF; WBC,URINE TNTC /HPF
[2023-09-21] MEDS ORDERED: cefTRIAXone IV/IM 1,000 MG in NS (IVPB) 50 ML 50 ML IV ONE (17:00)
[2023-09-21 17:07] LABS: BASOPHILS # (AUTO) 0.1 10^3/uL (0.0-0.1); BASOPHILS % (AUTO) 1 % (0-10); EOSINOPHILS # (AUTO) 0.1 10^3/uL (0.0-0.3); EOSINOPHILS % (AUTO) 1 % (0-10); HEMATOCRIT 46 % (35-52); HEMOGLOBIN 15.5 g/dL (11.5-16.0); LYMPHOCYTES # (AUTO) 3.4 10^3/uL (1.0-4.0); LYMPHOCYTES % (AUTO) 23 % (12-44); MEAN CORPUSCULAR HEMOGLOBIN 34 pg (25-34); MEAN CORPUSCULAR HGB CONC 34 g/dL (32-36); MEAN CORPUSCULAR VOLUME 102 fL (80-99); MEAN PLATELET VOLUME 8.8 fL (9.0-12.2); MONOCYTES # (AUTO) 0.9 10^3/uL (0.0-1.0); MONOCYTES % (AUTO) 6 % (0-12); NEUTROPHILS # (AUTO) 10.4 10^3/uL (1.8-7.8); NEUTROPHILS % (AUTO) 70 % (42-75); PLATELET COUNT 289 10^3/uL (130-400)
[2023-09-21 17:14] LABS: ALBUMIN 3.7 GM/DL (3.2-4.5); POTASSIUM 3.6 MMOL/L (3.6-5.0)
[2023-09-21 17:15] LABS: CALCIUM 8.8 MG/DL (8.5-10.1)
[2023-09-21 17:17] LABS: TOTAL PROTEIN 6.3 GM/DL (6.4-8.2)
[2023-09-21 17:19] LABS: BILIRUBIN,TOTAL 0.4 MG/DL (0.1-1.0)
[2023-09-21 17:21] LABS: CREATININE SERUM 0.74 MG/DL (0.60-1.30)
[2023-09-21 17:39] LABS: BAND NEUTROPHILS 1 %; EOSINOPHILS % (MANUAL) 1 %; LYMPHOCYTES % (MANUAL) 25 %; MONOCYTES % (MANUAL) 4 %; NEUTROPHILS % (MANUAL) 69 %; RBC MORPH NORMAL
[2023-09-21] MEDS ORDERED: RX-NITROFURANTOIN 100 MG (MACROBID) CAP PPK#2 PO STA (17:57)
[2023-09-21] MEDS ORDERED: KETO10TA PO (18:08)
[2023-09-21] MEDS ORDERED: NITR100C PO (18:08)
[2023-09-21 18:16] VITALS: BP 131/48
== END 2023-09-21 18:16 | disposition home or self-care (01) ==
LOC: EDUNIT# 15:45 → ER 15:48
DX: N39.0 Urinary tract infection, site not specified (principal); F17.210 Nicotine dependence, cigarettes, uncomplicated; Z88.2 Allergy status to sulfonamides
CPT/HCPCS: 36415; 80053; 81000; 85007; 85027; 86141; 87077; 87088